=== PATIENT | male | born 1955 | race Caucasian/White ===

== ENCOUNTER → 2017-11-06 19:43 | Outpatient (CLI) | payer BC, SELFPAY | PROVIDERS: PCP Family Medicine; Visit Provider Specialist | DX: I11.9 Hypertensive heart disease without heart failure (principal); I25.10 Atherosclerotic heart disease of native coronary artery without angina pectoris; R06.83 Snoring; F44.9 Dissociative and conversion disorder, unspecified; E66.01 Morbid (severe) obesity due to excess calories | CPT/HCPCS: 95810 ==

== ENCOUNTER 2018-12-15 21:14 | Observation (INO) ==
[2018-12-15 21:37] LABS: Basophils % 0.3 % (0.1-2.0); Eosinophils # 0.3 K/mm3 (0.0-0.4); Hemoglobin 14.9 g/dL (14.1-18.0); Lymphocytes # 1.7 K/mm3 (0.7-4.5); Lymphocytes % 17.8 % (10-50); Mean Corpuscular HGB Conc 33.2 g/dL (31.8-35.4); Mean Corpuscular Volume 99.3 fl (80-94); Mean Platelet Volume 7.3 fl (7.4-10.4); Monocytes # 0.4 K/mm3 (0.1-1.0); Monocytes % 3.9 % (1.7-9.3); Neutrophils # 7.2 K/mm3 (1.8-7.8); Neutrophils % 74.9 % (37.0-80.0); Platelet Count 249 K/mm3 (142-424); Red Blood Count 4.53 M/mm3 (4.60-6.20); Red Cell Distribution Width 12.6 % (11.5-17.5); White Blood Count 9.6 K/mm3 (4.8-10.8)
[2018-12-15 21:49] LABS: Anion Gap 15.9 mEq/L (5-15); Blood Urea Nitrogen 20 mg/dL (7-18); Calcium 9.4 mg/dL (8.5-10.1); Carbon Dioxide 24 mmol/L (21.0-32.0); Chloride 100 mmol/L (98-107); Glucose 175 mg/dL (74-106); Sodium 136 mmol/L (136-145)
--- NOTE | 2018-12-15 22:47 | Emergency Department Note ---
ED Disposition Clinical Impression: Morbid obesity Chest pain Qualifiers: Chest pain type: precordial pain Qualified Code(s): R07.2 - Precordial pain Disposition: Admitted as Observation Condition on Discharge: Good Referrals: Milla Carlos MD [Primary Care Provider] - - Critical Care Critical Care Time: No Attestation: On 12/15/18, the high probability of a clinically significant, sudden or life threatening deterioration of the following system(s) required my full and direct attention, intervention and personal management. The time I documented below is in addition to time spent performing reported procedures but includes the following listed in this critical care notation. Medical Decision Making - Medical Records Medical records reviewed: Yes: I reviewed the patient's medical records. - Alli Inquiry Pt receiving controlled substance: No Vital Signs: 12/15/18 21:15 Temperature 98.4 F Temperature Source Oral Pulse Rate [Right Radial] 92 H Respiratory Rate 22 Blood Pressure [Right Arm] 112/83 Blood Pressure Mean [Right Arm] 92 02 Sat by Pulse Oximetry 92 L - Lab Data Lab results reviewed: Yes: I reviewed the patient's lab results. Lab Results 12/15/18 21:20: WBC 9.6, RBC 4.53 L, Hgb 14.9, Hct 45.0, MCV 99.3 H, MCH 32.9 H, MCHC 33.2, RDW 12.6, Plt Count 249, MPV 7.3 L, Neut % (Auto) 74.9, Lymph % (Auto) 17.8, [place] % (Auto) 3.9, Eos % (Auto) 3.0, Baso % (Auto) 0.3, Neut # (Auto) 7.2, Lymph # (Auto) 1.7, [place] # (Auto) 0.4, Eos # (Auto) 0.3, Baso # (Auto) 0.0 12/15/18 21:20: Sodium 136, Potassium 3.9, Chloride 100, Carbon Dioxide 24, Anion Gap 15.9 H, BUN 20 H, Creatinine 1.25, Estimated Creat Clear 62, Estimated GFR 59, Est GFR ( Amer) 71, Glucose 175 H, Calcium 9.4, Troponin I < 0.02 Result diagrams: 12/15/18 21:20 12/15/18 21:20 Orders (Tests/Meds): ED MEDICATIONS Discontinued Medications Generic Name Dose Route Start Last Admin Trade Name Kristin PRN Reason Stop Dose Admin Aspirin 324 mg 12/15/18 21:22 12/15/18 21:23 Aspirin 81mg Chewable Tablet PO 12/15/18 21:23 324 mg ONCE ONE Administration ORDERS Category Date Time Status XR chest 2V Stat Exams 12/15/18 21:22 Taken 12-lead EKG Request [ECG Request by /Kayla] Stat Y 12/15/18 21:24 Ordered - Radiology Data #1 Image(s): Chest Image Reviewed: Yes I reviewed the patient's radiology image Preliminary Findings: Abnormal (cm) - ECG Data Tracing #1 Normal Sinus Rhythm: Yes Ischemic changes: non-specific ST-T wave changes - Physician Consults Physician Consulted: marta Reason -: Admission Chest Pain HPI - General Chief Complaint: Chest Pain Stated Complaint: chest pain Time Seen by Provider: 12/15/18 21:20 Mode of Arrival: Wheelchair Source of Information: Patient, Spouse, Medical Record Limitations: No Limitations Description of Symptoms (Recalled from ER Triage Doc. by RN): pt states that at 2044 he was stung by a bee or wasp in the right forearm and he took 2 benadryl and sat down. pt states he then became diaphoretic, weak and dizzy and started having left chest pain - History of Present Illness HPI narrative: pt had felt dizzy earlier in day and dev chest pain which lasted about 20-30 minutes with no palpitation - pain resolved - feels chest pain not related to bee sting MD complaint: chest pain indicative of cardiac Onset (ago): hour(s) Duration: now resolved Activity at onset: during rest Pain location: left chest Severity: moderate Quality: sharp Associated symptoms: nausea, diaphoresis Risk Factors for CAD: Hypertension, Family Hx of CAD Treatments prior to or on arrival for Cardiac Chest Pain: none - JOSIAH Score for Non-Stemi Age of Patient: 60-69 years old Heart Rate: 90-109 bpm Systolic Blood Pressure: 100-119 mmHg Serum Creatinine: 1.20-1.59 mg/dl CHF [place] Class: I-No CHF Other Risk Factors: None Non-Stemi Risk Score: 126 - Related Data Prior Cardiac Testing/Procedures: Cardiac Angiogram Home Medications Medication Instructions Recorded Confirmed aspirin 81 mg tablet,delayed 81 mg PO DAILY tab 09/08/17 12/15/18 release isosorbide mononitrate ER 30 mg 30 mg PO DAILY 90 Days #180 01/19/18 12/15/18 tablet,extended release 24 hr Atorvastatin Calcium [Atorvastatin 10 mg PO DAILY 07/16/18 12/15/18 10mg Tab] Carvedilol [Carvedilol 6.25mg Tab] 6.25 mg PO BID 07/16/18 12/15/18 Cholecalciferol (Vitamin D3) 2,000 unit PO BID 07/16/18 12/15/18 [Vitamin D3] Multivit,Tx with Iron,Minerals 1 each PO DAILY 07/16/18 12/15/18 [Complete Multivitamin] potassium chloride 20 mEq oral 20 meq PO DAILY each 09/08/18 12/15/18 packet triamterene 37.5 1 tab PO BID tab 09/08/18 12/15/18 mg-hydrochlorothiazide 25 mg tablet Allergies Allergy/AdvReac Type Severity Reaction Status Date / Time No Known Allergies Allergy Verified 12/15/18 21:21 [facility] History - Hepatitis A Screen Drug use history?: No High risk sexual behaviors?: No History of sexually transmitted infection?: No Currently employed?: No Childcare worker?: No Do you have indoor plumbing?: Yes Do you have electricity?: Yes Attestation statement:: This patient has been screened for Hepatitis A risk factors. I have reviewed the patient's past medical history: Yes Medical History: Reports:: Coronary Artery Disease, Cerebrovascular Accident, Hyperlipidemia, Hypertension, Lung Disease, Transient Ischemic Attacks (TIA) Denies:: Cancer, Diabetes Mellitus Type 1, Diabetes Mellitus Type 2, Internal Pacemaker, MRSA, Seizures Comment: CHINTAN, angina, super morbid obesity Other Surgeries: Yes: Cardiac Catheterization, Hernia Repair. No: Pacemaker Amputation: No - Social History Smoking Status: Former smoker Tobacco Type: smokeless tobacco # Packs/Day (cigarettes): 0 Alcohol Intake: never Alcohol Intake Frequency:: other Substance Use Type: denies use Occupational Status: employed - Psychiatric History Expresses thoughts of harming self/others: None Suicide Plan Description: No Plan Family Hx:: Coronary Artery Disease, Stroke ROS Obtained: Yes All systems reviewed & no additional complaints - Constitutional Constitutional: Denies fever(s) - Eyes Eyes: Denies change in vision - ENT Ears, Nose, Mouth, and Throat: Denies sore throat - Cardiovascular Cardiovascular: Reports as per HPI, Reports chest pain, Reports dyspnea, Reports lightheadedness - Respiratory Respiratory: No cough - Gastrointestinal Gastrointestingal: Denies: abdominal pain - Genitourinary Male Genitourinary: Denies hematuria - Musculoskeletal Musculoskeletal: Denies joint pain - Integumentary/Breasts Skin/Breast: Denies rash - Neurologic Neurologic: Denies headache(s), Denies seizure-like activity Physical Exam - General General appearance: alert - Head Head exam: normocephalic - Eye Eye exam: Present: PERRL, EOMI - ENT ENT exam: Present: mucous membranes dry - Neck Neck exam: Present: trachea midline - Respiratory Respiratory exam: Present: other (dec bs bilat ). Absent: respiratory distress - Cardiovascular Cardiovascular exam: Present: regular rate, systolic murmur, +S4 - Abdominal Exam Abdominal exam: Present: soft - Extremities Exam Extremities exam: Present: pedal edema. Absent: calf tenderness - Neurological Exam Neurological exam: Present: alert, CN II-XII intact - Psychiatric Psychiatric exam: Present: normal affect - Skin Skin exam: Absent: rash
[2018-12-16 06:26] LABS: Basophils % 0.3 % (0.1-2.0); Eosinophils # 0.4 K/mm3 (0.0-0.4); Eosinophils % 4.4 % (0.1-12.0); Hematocrit 43.5 % (42.0-52.0); Hemoglobin 14.3 g/dL (14.1-18.0); Lymphocytes # 2.8 K/mm3 (0.7-4.5); Mean Corpuscular HGB Conc 32.9 g/dL (31.8-35.4); Mean Corpuscular Volume 102.2 fl (80-94); Mean Platelet Volume 7.6 fl (7.4-10.4); Monocytes # 0.5 K/mm3 (0.1-1.0); Monocytes % 5.6 % (1.7-9.3); Neutrophils # 4.8 K/mm3 (1.8-7.8); Neutrophils % 56.8 % (37.0-80.0); Platelet Count 211 K/mm3 (142-424); Red Blood Count 4.25 M/mm3 (4.60-6.20); Red Cell Distribution Width 12.6 % (11.5-17.5); White Blood Count 8.5 K/mm3 (4.8-10.8)
[2018-12-16 06:38] LABS: Anion Gap 12.4 mEq/L (5-15); Chol/HDL Ratio 3.2 (1-3.5)
--- NOTE | 2018-12-16 07:25 | Pharmacy Consult Notes ---
[facility] Pharmacy VTE Monitoring - Patient Demographics Admission date: 12/15/18 Report Date: 12/16/18 Time: 07:25 Allergies/Adverse Reactions: Patient Allergies No Known Allergies Allergy (Verified 12/15/18 21:21) Height: 1.75 m Weight: 141.181 kg Patient Problems: Current Active Problems (Updated 12/15/18 @ 22:53 by Rafita Butler MD) Chest pain (Acute) Morbid obesity (Acute) - VTE Risk Labs: VTE Related Lab Results Hgb 14.3 g/dL (14.1-18.0) 12/16/18 05:42 Hct 43.5 % (42.0-52.0) 12/16/18 05:42 Plt Count 211 K/mm3 (142-424) 12/16/18 05:42 BUN 19 mg/dL (7-18) H 12/16/18 05:42 Creatinine 1.10 mg/dL (0.70-1.30) 12/16/18 05:42 Estimated Creat Clear 71 mL/min (50-200) 12/16/18 05:42 Was VTE Risk Assessment Performed: Yes VTE Score: 3 VTE Risk Level: Low Risk Clinical Trial Participant: No - Prophylaxis VTE Prophylaxis Ordered?: Yes Types of VTE Prophylaxis: TEDS Knee High
--- NOTE | 2018-12-16 07:42 | Consult Report ---
History of Present Illness Consult date: 12/16/18 Requesting physician: Milla Carlos Consult reason: chest pain Chief complaint: chest pain Additional Medical History:: 1. Mild CAD by cardiac cath, 07/2014 A. Lexiscan myoview, 2017, no ischemia, EF 60% 2. HTN A. Echo, 2017, normal LVEF with mild right ventricular enlargement. No significant valve disease. 3. Hyperlipidemia 4. Morbid obesity 5. First degree A-V block by electrocardiogram 6. History of TIA 7. CHINTAN History of present illness: 63-year-old white male with history of mild coronary artery disease by cardiac catheterization in 2014 presented to the emergency department for left-sided chest pain without radiation but with associated shortness of breath and diaphoresis as well as nausea that onset at rest. Patient relates removing and replacing an air conditioner yesterday without significant chest pain or shortness of breath. Symptoms began about 8:30 last evening and due to their continuation he decided to come to the ER for further evaluation. He is given aspirin in the ER with improvement in symptoms. He did not take any nitroglycerin. Patient does relate being in route to home earlier in the evening when he was stung by bee on the right forearm. He denies any immediate shortness of breath or difficulty breathing associated with this. Patient was admitted for observation overnight. Troponins have returned normal x3. EKG is sinus rhythm, borderline first degree AV block with septal infarct pattern (not new) with no acute ST segment changes. Cardiology consulted for evaluation recommendations. Patient did have a Lexiscan Myoview in 2017 that showed no ischemia with normal ejection fraction. [facility] History Medical History: Reports:: Coronary Artery Disease, Cerebrovascular Accident, Hyperlipidemia, Hypertension, Lung Disease, Transient Ischemic Attacks (TIA) Denies:: Cancer, Diabetes Mellitus Type 1, Diabetes Mellitus Type 2, Internal Pacemaker, MRSA, Seizures *Have you ever received a pneumonia vaccine?: No *Have you received a flu vaccine this season?: No Other Surgeries: Yes: Cardiac Catheterization, Colonoscopy, Hernia Repair. No: Pacemaker Amputation: No - *Social History Educational Level: Attended High School Smoking Status: Current every day smoker Tobacco Type: smokeless tobacco # Packs/Day (cigarettes): 1 Alcohol Intake: never Alcohol Intake Frequency:: other Substance Use Type: denies use *Occupational Status:: employed *Travel in the last 8 weeks: None - Psychiatric History Expresses thoughts of harming self/others: None Suicide Plan Description: No Plan Family Hx:: Cancer, Coronary Artery Disease, Heart Attack, Hyperlipidemia, Hypertension, Stroke Meds Home Medications Medication Instructions Recorded Confirmed Type aspirin 81 mg tablet,delayed 81 mg PO HS tab 09/08/17 12/16/18 History release isosorbide mononitrate ER 30 mg 30 mg PO DAILY 90 Days #180 01/19/18 12/16/18 History tablet,extended release 24 hr Atorvastatin Calcium [Atorvastatin 10 mg PO HS 07/16/18 12/16/18 History 10mg Tab] Carvedilol [Carvedilol 6.25mg Tab] 6.25 mg PO BID 07/16/18 12/16/18 History Cholecalciferol (Vitamin D3) 2,000 unit PO BID 07/16/18 12/16/18 History [Vitamin D3] Multivit,Tx with Iron,Minerals 1 each PO DAILY 07/16/18 12/16/18 History [Complete Multivitamin] potassium chloride 20 mEq oral 20 meq PO DAILY each 09/08/18 12/16/18 History packet triamterene 37.5 1 tab PO DAILY tab 09/08/18 12/16/18 History mg-hydrochlorothiazide 25 mg tablet Clopidogrel Bisulfate [Plavix 75mg 75 mg PO DAILY 12/16/18 12/16/18 History Tab] Furosemide [Furosemide 40MG tAB] 40 mg PO DAILY 12/16/18 12/16/18 History Allergies Allergy/AdvReac Type Severity Reaction Status Date / Time No Known Allergies Allergy Verified 12/15/18 21:21 Review of Systems - *Cardiovascular Reports chest pain, Reports shortness of breath with activity, Denies rapid, pounding, or irregular heartbeat - *Respiratory Denies cough, Denies shortness of breath - *Gastrointestinal Denies abdominal pain, Denies nausea, Denies vomiting - *Genitourinary Denies blood in urine - *Musculoskeletal Denies joint pain, Denies back pain - *Neurologic Denies headache(s), Denies seizure-like activity Exam Vital signs and Labs for Last 24 Hours: Temp Pulse Resp BP Pulse Ox 98.8 F 66 18 108/71 L 95 12/16/18 07:40 12/16/18 07:40 12/16/18 07:40 12/16/18 07:40 12/16/18 07:40 Laboratory Results - last 24 hr 12/15/18 21:20: WBC 9.6, RBC 4.53 L, Hgb 14.9, Hct 45.0, MCV 99.3 H, MCH 32.9 H, MCHC 33.2, RDW 12.6, Plt Count 249, MPV 7.3 L, Neut % (Auto) 74.9, Lymph % (Auto) 17.8, [place] % (Auto) 3.9, Eos % (Auto) 3.0, Baso % (Auto) 0.3, Neut # ( Auto) 7.2, Lymph # (Auto) 1.7, [place] # (Auto) 0.4, Eos # (Auto) 0.3, Baso # (Auto) 0.0 12/15/18 21:20: Sodium 136, Potassium 3.9, Chloride 100, Carbon Dioxide 24, Anion Gap 15.9 H, BUN 20 H, Creatinine 1.25, Estimated Creat Clear 62, Estimated GFR 59, Est GFR ( Amer) 71, Glucose 175 H, Calcium 9.4, Troponin I < 0.02 12/16/18 02:12: Troponin I < 0.02 12/16/18 05:42: Troponin I < 0.02 12/16/18 05:42: WBC 8.5, RBC 4.25 L, Hgb 14.3, Hct 43.5, MCV 102.2 H, MCH 33.6 H , MCHC 32.9, RDW 12.6, Plt Count 211, MPV 7.6, Neut % (Auto) 56.8, Lymph % (Au to) 33.0, [place] % (Auto) 5.6, Eos % (Auto) 4.4, Baso % (Auto) 0.3, Neut # (Auto) 4.8, Lymph # (Auto) 2.8, [place] # (Auto) 0.5, Eos # (Auto) 0.4, Baso # (Auto) 0.0 12/16/18 05:42: Sodium 140, Potassium 3.4 L, Chloride 103, Carbon Dioxide 28, Anion Gap 12.4, BUN 19 H, Creatinine 1.10, Estimated Creat Clear 71, Estimated GFR 68, Est GFR ( Amer) 82, Glucose 111 H D, Calcium 9.0, Magnesium 2.1, Triglycerides 84, Cholesterol 150, LDL Cholesterol 86, VLDL Cholesterol 17, HDL Cholesterol 47, Cholesterol/HDL Ratio 3.2 I & O for Last 24 hours: Intake & Output 12/13/18 12/14/18 12/15/18 12/16/18 11:59 11:59 11:59 11:59 Weight 311 lb 4 oz - *Routine HEENT Exam Head: Present: normocephalic Eye: Present: EOMI, PERRL ENT: Present: mucous membranes moist - *Routine Neck Exam Present: supple. Absent: JVD, carotid bruit - *Routine Respiratory Exam Present: CTA bilaterally. Absent: accessory muscle use, rales, rhonchi, wheezes - *Routine Cardiovascular Exam Present: RRR. Absent: murmur, gallop, rubs - *Routine Abdominal Exam Present: soft. Absent: tenderness, distended, guarding - *Routine Extremities Exam Present: edema. Absent: calf tenderness - *Routine Neurological Exam Present: alert, oriented X3, moving all extremities Assessment and Plan (1) Chest pain Current visit: Yes Status: Acute Qualifiers: Chest pain type: precordial pain Qualified Code(s): R07.2 - Precordial pain Category: Medical Code(s): R07.9 - Chest pain, unspecified (2) Morbid obesity Current visit: Yes Status: Acute Category: Medical Code(s): E66.01 - Morbid (severe) obesity due to excess calories (3) First degree atrioventricular block Current visit: No Status: Acute Category: Medical Code(s): I44.0 - Atrioventricular block, first degree (4) Coronary arteriosclerosis Current visit: No Status: Chronic Category: Medical Code(s): I25.10 - Atherosclerotic heart disease of [place] coronary artery without angina pectoris (5) Hyperlipidemia Current visit: No Status: Chronic Qualifiers: Hyperlipidemia type: other hyperlipidemia Category: Medical Code(s): E78.5 - Hyperlipidemia, unspecified (6) Hypertensive heart disease without heart failure Current visit: No Status: Chronic Category: Medical Code(s): I11.9 - Hypertensive heart disease without heart failure (7) CHINTAN (obstructive sleep apnea) Current visit: No Status: Chronic Category: Medical Code(s): G47.33 - Obstructive sleep apnea (adult) (pediatric) - Assessment and plan all Dx Assessment and Plan for all problems:: 1. Chest pain with mild coronary artery disease by cardiac cath 2014, no acute EKG changes and normal troponins x3. Recommend proceeding with Lexiscan Myoview to evaluate for progression of coronary artery disease. 2. Further recommendations to follow pending above results.
--- NOTE | 2018-12-16 08:09 | History & Physical Report ---
*Admission Date: 12/15/18 *Chief complaint: chest pain *History of present illness: Mr. Myers is a 63-year-old white male with history of mild coronary artery disease by cardiac catheterization in 2014 who presented to the emergency department for left-sided chest pain without radiation but with associated s hortness of breath and diaphoresis as well as nausea with onset at rest. Patient relates removing and replacing an air conditioner yesterday without significant chest pain or shortness of breath. Symptoms began about 8:30 last evening and due to their continuation, he decided to come to the ER for further evaluation. He was given aspirin in the ER with improvement in symptoms. He did not take any nitroglycerin. Patient does relate being in route to home earlier in the evening when he was stung by a bee on the right forearm. He denies any immediate shortness of breath or difficulty breathing associated with this. Patient was admitted for observation overnight. Troponins have returned normal x3. EKG is sinus rhythm, borderline first degree AV block with septal infarct pattern (not new) with no acute ST segment changes. Cardiology consulted for evaluation recommendations. Patient did have a Lexiscan Myoview in 2017 that showed no ischemia with normal ejection fraction. The above as per Juan Diego Wilson with Cardiology. [facility] History I have reviewed the patient's past medical history: Yes Medical History: Reports:: Anxiety, Coronary Artery Disease, Cerebrovascular Accident, Hyperlipidemia, Hypertension, Lung Disease, Transient Ischemic Attacks (TIA) Denies:: Cancer, Diabetes Mellitus Type 1, Diabetes Mellitus Type 2, Internal Pacemaker, MRSA, Seizures *Have you ever received a pneumonia vaccine?: No *Have you received a flu vaccine this season?: No Other Medical History: Reports: Other (Sleep apnea) Other Surgeries: Yes: Cardiac Catheterization, Colonoscopy, Hernia Repair. No: Pacemaker Amputation: No - *Social History Educational Level: Attended High School Smoking Status: Current every day smoker Tobacco Type: smokeless tobacco # Packs/Day (cigarettes): 1 Alcohol Intake: never Alcohol Intake Frequency:: other Substance Use Type: denies use *Occupational Status:: employed *Travel in the last 8 weeks: None - Psychiatric History Expresses thoughts of harming self/others: None Suicide Plan Description: No Plan Family Hx:: Cancer, Coronary Artery Disease, Diabetes, Heart Attack, Hyperlipidemia, Hypertension, Stroke Review of Systems - Constitutional Denies fatigue, Denies fever(s), Denies weakness - Eyes Denies blurry vision, Denies double vision - ENT Denies nasal congestion, Denies sore throat - *Cardiovascular Reports chest pain, Reports shortness of breath, Denies rapid, pounding, or irregular heartbeat, Denies radiating jaw, neck or arm pain - *Respiratory Denies cough, Denies wheezing - *Gastrointestinal Reports nausea, Denies abdominal pain, Denies loose stools, Denies vomiting - *Genitourinary Denies difficulty urinating, Denies painful urination - *Musculoskeletal Denies joint pain, Denies muscle weakness - *Neurologic Reports dizziness, Denies headache(s), Denies seizure-like activity, Denies weakness Meds Home Medications Medication Instructions Recorded Confirmed Type aspirin 81 mg tablet,delayed 81 mg PO HS tab 09/08/17 12/16/18 History release isosorbide mononitrate ER 30 mg 30 mg PO DAILY 90 Days #180 01/19/18 12/16/18 History tablet,extended release 24 hr Atorvastatin Calcium [Atorvastatin 10 mg PO HS 07/16/18 12/16/18 History 10mg Tab] Carvedilol [Carvedilol 6.25mg Tab] 6.25 mg PO BID 07/16/18 12/16/18 History Cholecalciferol (Vitamin D3) 2,000 unit PO BID 07/16/18 12/16/18 History [Vitamin D3] Multivit,Tx with Iron,Minerals 1 each PO DAILY 07/16/18 12/16/18 History [Complete Multivitamin] potassium chloride 20 mEq oral 20 meq PO DAILY each 09/08/18 12/16/18 History packet triamterene 37.5 1 tab PO DAILY tab 09/08/18 12/16/18 History mg-hydrochlorothiazide 25 mg tablet Carvedilol [Carvedilol 6.25mg Tab] 6.25 mg PO PM 12/16/18 12/16/18 History Clopidogrel Bisulfate [Plavix 75mg 75 mg PO DAILY 12/16/18 12/16/18 History Tab] Fluticasone Propionate 1 spr NOSTRIL-B DAILY 12/16/18 12/16/18 History Furosemide [Furosemide 40MG tAB] 40 mg PO DAILY 12/16/18 12/16/18 History Allergies Allergy/AdvReac Type Severity Reaction Status Date / Time No Known Allergies Allergy Verified 12/15/18 21:21 Exam Vital signs and Labs for Last 24 Hours: Temp Pulse Resp BP Pulse Ox 98.8 F 66 18 108/71 L 95 12/16/18 07:40 12/16/18 07:40 12/16/18 07:40 12/16/18 07:40 12/16/18 07:40 Laboratory Results - last 24 hr 12/15/18 21:20: WBC 9.6, RBC 4.53 L, Hgb 14.9, Hct 45.0, MCV 99.3 H, MCH 32.9 H, MCHC 33.2, RDW 12.6, Plt Count 249, MPV 7.3 L, Neut % (Auto) 74.9, Lymph % (Auto) 17.8, [place] % (Auto) 3.9, Eos % (Auto) 3.0, Baso % (Auto) 0.3, Neut # (Auto) 7.2, Lymph # (Auto) 1.7, [place] # (Auto) 0.4, Eos # (Auto) 0.3, Baso # (Auto) 0.0 12/15/18 21:20: Sodium 136, Potassium 3.9, Chloride 100, Carbon Dioxide 24, Anion Gap 15.9 H, BUN 20 H, Creatinine 1.25, Estimated Creat Clear 62, Estimated GFR 59, Est GFR ( Amer) 71, Glucose 175 H, Calcium 9.4, Troponin I < 0.02 12/16/18 02:12: Troponin I < 0.02 12/16/18 05:42: Troponin I < 0.02 12/16/18 05:42: WBC 8.5, RBC 4.25 L, Hgb 14.3, Hct 43.5, MCV 102.2 H, MCH 33.6 H , MCHC 32.9, RDW 12.6, Plt Count 211, MPV 7.6, Neut % (Auto) 56.8, Lymph % (Auto) 33.0, [place] % (Auto) 5.6, Eos % (Auto) 4.4, Baso % (Auto) 0.3, Neut # (Auto) 4.8, Lymph # (Auto) 2.8, [place] # (Auto) 0.5, Eos # (Auto) 0.4, Baso # (Auto) 0.0 12/16/18 05:42: Sodium 140, Potassium 3.4 L, Chloride 103, Carbon Dioxide 28, Anion Gap 12.4, BUN 19 H, Creatinine 1.10, Estimated Creat Clear 71, Estimated GFR 68, Est GFR ( Amer) 82, Glucose 111 H D, Calcium 9.0, Magnesium 2.1, Triglycerides 84, Cholesterol 150, LDL Cholesterol 86, VLDL Cholesterol 17, HDL Cholesterol 47, Cholesterol/HDL Ratio 3.2 I & O for Last 24 hours: Intake & Output 12/13/18 12/14/18 12/15/18 12/16/18 11:59 11:59 11:59 11:59 Weight 311 lb 4 oz - Constitutional no acute distress - *Routine HEENT Exam Head: Present: normocephalic Eye: Present: EOMI, PERRL ENT: Present: mucous membranes dry - *Routine Neck Exam Present: supple. Absent: lymphadenopathy - *Routine Respiratory Exam Present: CTA bilaterally - *Routine Cardiovascular Exam Present: RRR - *Routine Abdominal Exam Present: soft, normoactive bowel sounds. Absent: tenderness - *Routine Extremities Exam Absent: cyanosis, clubbing, edema - *Routine Skin Exam Present: warm. Absent: rash - *Routine Neurological Exam Present: alert, oriented X3 H&P: Result - Impressions CXR - pending Assessment and Plan (1) Chest pain Current visit: Yes Status: Acute Qualifiers: Chest pain type: precordial pain Qualified Code(s): R07.2 - Precordial pain Category: Medical Code(s): R07.9 - Chest pain, unspecified (2) Morbid obesity Current visit: Yes Status: Acute Category: Medical Code(s): E66.01 - [place] d (severe) obesity due to excess calories (3) First degree atrioventricular block Current visit: No Status: Acute Category: Medical Code(s): I44.0 - Atrioventricular block, first degree (4) Coronary arteriosclerosis Current visit: No Status: Chronic Category: Medical Code(s): I25.10 - Atherosclerotic heart disease of [place] coronary artery without angina pectoris (5) Hyperlipidemia Current visit: No Status: Chronic Qualifiers: Hyperlipidemia type: other hyperlipidemia Category: Medical Code(s): E78.5 - Hyperlipidemia, unspecified (6) Hypertensive heart disease without heart failure Current visit: No Status: Chronic Category: Medical Code(s): I11.9 - Hypertensive heart disease without heart failure (7) CHINTAN (obstructive sleep apnea) Current visit: No Status: Chronic Category: Medical Code(s): G47.33 - Obstructive sleep apnea (adult) (pediatric) (8) Hypokalemia Current visit: Yes Status: Acute Category: Medical Code(s): E87.6 - Hypokalemia - Assessment and plan all Dx Assessment and Plan for all problems:: Patient has been seen by cardiology and they want to proceed with a Lexiscan Myoview today. We will also start on potassium for hypokalemia.
[2018-12-16 15:28] VITALS: BP 142/75
--- NOTE | 2018-12-16 20:27 | Cardiology Report ---
PROCEDURE: 2-D M-mode and color Doppler study INDICATIONS FOR THE TEST: Chest pain+ COPD Heart Murmur Tobacco Smoking Palpitations Fatigue Syncope Edema Hypertension+Diabetes Mellitus Rheumatic Fever SOB JANSEN Obesity Hyperlipidemia+ Family History HD Additional History CHINTAN, DIZZINESS, CAD,CVA PATIENT INFORMATION HEIGHT:69 WEIGHT:340 GENDER: Male B/P:112/83 2-D/M-MODE INTERPRETATION: 2-D MEASUREMENTS OBSERVED VALUES IN CMS Right Ventricular Dimension (RVDd) 3.1 Interventricular Septum (Thickness)(IVsd) 1.6 Left Ventricular Internal Dimensions(LVIDd) 4.6 Left Ventricular Posterior Wall (Thickness)(LVPWd) 1.1 Aortic Root 3.5 Aortic Cusp Separation 2.0 Left Atrial Dimensions (LAD) 3.8 2D 1. Left atrium is mildly enlarged, left ventricle is normal size, mild concentric left ventricular hypertrophy, visually estimated ejection fraction 55% with no regional wall motion abnormality. 2. The right atrium and right ventricle are mildly enlarged with normal contractility. 3. The aortic valve is thickened and calcified leaflet continue to display mobility. 4. The mitral and tricuspid valve leaflets are minimally thickened. 5. The pulmonic valve is poorly present. 6. No significant pericardial effusion noted. DOPPLER INTERROGATION: Doppler interrogation of the aortic, mitral and tricuspid valvular presence of mild mitral and tricuspid regurgitation, tricuspid regurgitation jet velocity is inadequate for the right ventricular systolic pressure, grade 1 diastolic dysfunction seen without tissue Doppler evidence of raised left atrial pressure. CONCLUSION: 1. Mildly enlarged left atrium, normal left ventricular size, mild concentric left ventricular hypertrophy, visually estimated ejection fraction 55% with no regional wall motion abnormality, grade 1 diastolic dysfunction seen without tissue Doppler evidence of raised left atrial pressure. 2. Mildly enlarged right ventricle with normal contractility. 3. Mild mitral and tricuspid regurgitation 4. No significant pericardial effusion noted.
--- NOTE | 2018-12-17 09:33 | Discharge Summary ---
General - General Admission date:: 12/15/18 Discharge date: 12/16/18 HPI HPI: Mr. Myers is a 63-year-old white male with history of mild coronary artery disease by cardiac catheterization in 2014 who presented to the emergency department for left-sided chest pain without radiation but with associated shortness of breath and diaphoresis as well as nausea with onset at rest. Patient relates removing and replacing an air conditioner yesterday without significant chest pain or shortness of breath. Symptoms began about 8:30 last evening and due to their continuation, he decided to come to the ER for further evaluation. He was given aspirin in the ER with improvement in symptoms. He did not take any nitroglycerin. Patient does relate being in route to home earlier in the evening when he was stung by a bee on the right forearm. He denies any immediate shortness of breath or difficulty breathing associated with this. Patient was admitted for observation overnight. Troponins have returned normal x3. EKG is sinus rhythm, borderline first degree AV block with septal infarct pattern (not new) with no acute ST segment changes. Cardiology consulted for evaluation recommendations. Patient did have a Lexiscan Myoview in 2017 that showed no ischemia with normal ejection fraction. The above as per Juan Diego Wilson with Cardiology. Hospital Course Hospital Course: The patient's chest pain resolved and did not return. Cardiology wanted him to have a Lexiscan Myoview. This was performed and showed no ischemia with a normal left ventricular ejection fraction. He had an echo showing an EF of 55% with some grade 1 diastolic dysfunction. Cardiology felt he was stable to be discharged home. Objective Vital signs: Temp Pulse Resp BP Pulse Ox 98.5 F 60 18 142/75 H 98 12/16/18 15:27 12/16/18 16:00 12/16/18 15:27 12/16/18 15:27 12/16/18 15:27 Narrative: - Constitutional no acute distress - *Routine HEENT Exam Head: Present: normocephalic Eye: Present: EOMI, PERRL ENT: Present: mucous membranes dry - *Routine Neck Exam Present: supple. Absent: lymphadenopathy - *Routine Respiratory Exam Present: CTA bilaterally - *Routine Cardiovascular Exam Present: RRR - *Routine Abdominal Exam Present: soft, normoactive bowel sounds. Absent: tenderness - *Routine Extremities Exam Absent: cyanosis, clubbing, edema - *Routine Skin Exam Present: warm. Absent: rash - *Routine Neurological Exam Present: alert, oriented X3 DS: Diagnosis - Discharge Diagnosis (1) Chest pain Status: Acute (2) Morbid obesity Status: Acute (3) First degree atrioventricular block Status: Acute (4) Coronary arteriosclerosis Status: Chronic (5) Hyperlipidemia Status: Chronic (6) Hypertensive heart disease without heart failure Status: Chronic (7) CHINTAN (obstructive sleep apnea) Status: Chronic (8) Hypokalemia Status: Acute Discharge Plan - Patient Discharge Instructions ACTIVITY: Continue current activity DIET: low fat, low cholesterol Patient Instructions: DI for Chest Pain - Follow up Plan Follow up with: Milla Carlos MD [Primary Care Provider] - 12/19/18 11:30 am Disposition: Home, Self-Long-Term Medications: Home Medications Medication Instructions Recorded Confirmed Type aspirin 81 mg tablet,delayed 81 mg PO HS tab 09/08/17 12/16/18 History release isosorbide mononitrate ER 30 mg 30 mg PO DAILY 90 Days #180 01/19/18 12/16/18 History tablet,extended release 24 hr Atorvastatin Calcium [Atorvastatin 10 mg PO HS 07/16/18 12/16/18 History 10mg Tab] Carvedilol [Carvedilol 6.25mg Tab] 12.5 mg PO DAILY 07/16/18 12/16/18 History Cholecalciferol (Vitamin D3) 2,000 unit PO BID 07/16/18 12/16/18 History [Vitamin D3] Multivit,Tx with Iron,Minerals 1 each PO DAILY 07/16/18 12/16/18 History [Complete Multivitamin] potassium chloride 20 mEq oral 20 meq PO DAILY each 09/08/18 12/16/18 History packet triamterene 37.5 1 tab PO DAILY tab 09/08/18 12/16/18 History mg-hydrochlorothiazide 25 mg tablet Carvedilol [Carvedilol 6.25mg Tab] 6.25 mg PO PM 12/16/18 12/16/18 History Clopidogrel Bisulfate [Plavix 75mg 75 mg PO DAILY 12/16/18 12/16/18 History Tab] Fluticasone Propionate 1 spr NOSTRIL-B DAILY 12/16/18 12/16/18 History Furosemide [Furosemide 40MG tAB] 40 mg PO DAILY 12/16/18 12/16/18 History Prescriptions/Medication Reconciliation: Continued isosorbide mononitrate ER 30 mg tablet,extended release 24 hr 30 mg PO DAILY 90 Days #180 triamterene 37.5 mg-hydrochlorothiazide 25 mg tablet 1 tab PO DAILY tab aspirin 81 mg tablet,delayed release 81 mg PO HS tab potassium chloride 20 mEq oral packet 20 meq PO DAILY each Carvedilol [Carvedilol 6.25mg Tab] 12.5 mg PO DAILY Atorvastatin Calcium [Atorvastatin 10mg Tab] 10 mg PO HS Cholecalciferol (Vitamin D3) [Vitamin D3] 2,000 unit PO BID Clopidogrel Bisulfate [Plavix 75mg Tab] 75 mg PO DAILY Furosemide [Furosemide 40MG tAB] 40 mg PO DAILY Multivit,Tx with Iron,Minerals [Complete Multivitamin] 1 each PO DAILY Fluticasone Propionate 1 spr NOSTRIL-B DAILY Carvedilol [Carvedilol 6.25mg Tab] 6.25 mg PO PM
== END 2018-12-16 17:30 | disposition home or self-care (01) ==
LOC: 2ND 21:14 → ER 21:14 → 2ND 23:10
PROVIDERS: ADMIT Family Medicine; ATTEND Family Medicine
DX: E78.5 Hyperlipidemia, unspecified; Z79.82 Long term (current) use of aspirin; Y92.810 Car as the place of occurrence of the external cause; E87.6 Hypokalemia; G47.33 Obstructive sleep apnea (adult) (pediatric); I44.0 Atrioventricular block, first degree; Z79.899 Other long term (current) drug therapy; I25.10 Atherosclerotic heart disease of native coronary artery without angina pectoris; T63.441A Toxic effect of venom of bees, accidental (unintentional), initial encounter; E66.01 Morbid (severe) obesity due to excess calories; I11.9 Hypertensive heart disease without heart failure; Z86.73 Personal history of transient ischemic attack (TIA), and cerebral infarction without residual deficits
CPT/HCPCS: 36415; 71020; 71046; 78452; 80048; 80061; 83735; 84484; 85025; 93005; 93017; 93306; 99284; A9502; G0378; J2785

== ENCOUNTER → 2019-06-02 16:12 | Outpatient (CLI) | payer BC, SELFPAY ==
[2019-06-02 17:45] LABS: Alanine Aminotransferase 70 U/L (12-78); Albumin Level 3.6 gm/dL (3.4-5.0); Alkaline Phosphatase 68 U/L (46-116); Anion Gap 11.9 mEq/L (5-15); Aspartate Amino Transferase 53 U/L (15-37); Bilirubin,Total 0.4 mg/dL (0.2-1.0); Blood Urea Nitrogen 17 mg/dL (7-18); Calcium 9.2 mg/dL (8.5-10.1); Carbon Dioxide 30 mmol/L (21.0-32.0); Chloride 107 mmol/L (98-107); Creatinine,Serum 1.01 mg/dL (0.70-1.30); Estimated Glomerular Filt Rate 75 ml/min (>60); GFR (African American) 91 ML/MIN (>60); Globulin 3.7 gm/dl (1.3-3.2); Glucose 87 mg/dL (74-106); Potassium 4.9 mmoL/L (3.5-5.1); Sodium 144 mmol/L (136-145); Thyroid Stimulating Hormone 2.99 uIU/ml (0.358-3.740); Total Protein,Serum 7.3 gm/dL (6.4-8.2)
== END ==
PROVIDERS: Visit Provider Family Medicine
DX: I10 Essential (primary) hypertension (principal); M54.2 Cervicalgia
CPT/HCPCS: 36415; 80053; 84443

== ENCOUNTER → 2019-06-10 07:37 | Outpatient (CLI) | payer BC, SELFPAY ==
--- NOTE | 2019-06-10 07:41 | CT_ITS ---
PROCEDURE: CT SOFT TISSUE NECK WO CON CLINICAL HISTORY: NECK PAIN Right-sided neck pain with intermittent swollen area below the ear with pain and tenderness COMPARISON: No exams were available for comparison TECHNIQUE: Oral Contrast: None IV Contrast: None Axial images obtained with sagittal and coronal reformats. All CT scans at the facility use one or more dose reduction, viz: automated exposure control, ma/kV adjustment per patient size (including targeted exams where dose is matched to indication, i.e. head), or iterative reconstruction technique. FINDINGS: No discrete mass or abnormal fluid collection is evident. There are few scattered small nodes in the neck. There asymmetry in the jugular veins right more prominent than left. This can be a normal variant. No obvious adenopathy. No acute bony anomalies. There is mild degenerative disc disease at C3-C4 and C5-C6. Nasopharynx, glottic region, and subglottic region are unremarkable. There are some calcified tonsillar crypts noted. IMPRESSION: Nonspecific nonacute findings. No mass or other significant anomaly evident. Dictated by: Michele Kenney MD 06/12/2019 14:05 Electronically signed by Michele Kenney MD in [facility] 06/12/2019 14:05
== END ==
PROVIDERS: PCP Family Medicine; Visit Provider Family Medicine
DX: M54.2 Cervicalgia (principal)
CPT/HCPCS: 70490

== ENCOUNTER → 2020-05-02 09:31 | Outpatient (CLI) | payer BC, SELFPAY ==
--- NOTE | 2020-05-02 | CA_ITS ---
APPROVED REPORT Left Lower Extremity Venous Study for DVT. Tobacco Prizer: CT Indications Lower Extremity Pain: Lower Extremity Edema: Left Medications Aspirin Vein Imaging CFV (L): Not Visualized SFJ (L): Not Visualized FEM (L): compressive, spontaneous, phasic, augmentation POP (L): compressive, spontaneous, phasic, augmentation DFV (L): compressive, spontaneous, phasic, augmentation PTV (L): compressive, spontaneous, phasic, augmentation GSV (L): compressive, spontaneous, phasic, augmentation SSV (L): Not Visualized Peroneals (L):compressive, spontaneous, phasic, augmentation GAS (L): Not Visualized Findings LLE negative for DVT/SVT. Vessels fully compressible. TDE. Conclusion LLE negative for DVT/SVT. Vessels fully compressible. TDE. Electronically signed by : Michele Kenney MD 05/02/2020 17:20:38
--- NOTE | 2020-05-02 12:09 | XR_ITS ---
PROCEDURE: XR KNEE LT 3V CLINICAL INDICATION: ARTHROPATHY OF KNEE Pain COMPARISON: CR KNEE3R KNEE-3 VIEWS-RT from 10/19/2012 CR KNEE3R KNEE-3 VIEWS-RT from 07/25/2016 FINDINGS: There are mild tricompartmental osteoarthritic changes most progressed at the medial compartment. No fracture or dislocation. No lytic or blastic change. Other findings:None. IMPRESSION: Mild osteoarthritis of the left knee Dictated by: Michele Kenney MD 05/02/2020 12:31 Michele Kenney MD in [facility] 05/02/2020 12:31
== END ==
LOC: RAD 09:34 → RT 10:15
PROVIDERS: PCP Family Medicine; Visit Provider Family Medicine
DX: M79.605 Pain in left leg (principal); M17.10 Unilateral primary osteoarthritis, unspecified knee
CPT/HCPCS: 73562; 93971

== ENCOUNTER → 2020-05-12 13:55 | Outpatient (CLI) | payer BC, SELFPAY ==
[2020-05-12 15:46] LABS: Creatinine,Urine Random 38 mg/dL (Not Estab.)
[2020-05-12 15:55] LABS: Microalbumin < 6.000 mg/L (0-16.7)
[2020-05-12 16:03] LABS: Hemoglobin A1C 5.9 % (4.0-6.0)
[2020-05-12 16:25] LABS: Alanine Aminotransferase 78 U/L (12-78); Albumin Level 4.3 g/dl (3.5-5.0); Albumin/Globulin Ratio 1.2 (1.1-1.8); Alkaline Phosphatase 77 U/L (38-126); Anion Gap 13.3 mEq/L (5-15); Aspartate Amino Transferase 79 U/L (17-59); Bilirubin,Total 0.5 mg/dl (0.2-1.3); Blood Urea Nitrogen 19 mg/dl (9-20); Calcium 10.3 mg/dl (8.4-10.2); Carbon Dioxide 32 mmol/L (22.0-30.0); Chloride 99 mmol/L (98-107); Chol/HDL Ratio 3.7 (1-3.5); Cholesterol 191 mg/dl (140-200); Estimated Glomerular Filt Rate 75 ml/min (>60); GFR (African American) 91 ML/MIN (>60); Globulin 3.5 g/dL (1.3-3.2); Glucose 126 mg/dl (74-100); HDL Cholesterol 52 mg/dl (40-60); Potassium 4.3 mmoL/L (3.5-5.1); Sodium 140 mmol/L (136-145); Total Protein,Serum 7.8 g/dl (6.3-8.2); Triglycerides 238 mg/dl (30-150); VLDL Cholesterol 48 mg/dL (0-40)
[2020-05-12 16:36] LABS: Direct LDL Cholesterol 99.23 mg/dL (100-129)
[2020-05-12 16:56] LABS: Thyroid Stimulating Hormone 2.59 uIU/mL (0.465-4.68)
== END ==
PROVIDERS: Visit Provider Family Medicine
DX: I10 Essential (primary) hypertension (principal); R73.9 Hyperglycemia, unspecified; E78.2 Mixed hyperlipidemia; R79.89 Other specified abnormal findings of blood chemistry
CPT/HCPCS: 36415; 80053; 80061; 82043; 82570; 83036; 84443

== ENCOUNTER 2020-05-17 16:00 | Outpatient (RCR) | payer BC, SELFPAY ==
--- NOTE | 2020-05-08 15:42 | [facility].PTOPWND ---
Rehab Outpt Wound Evaluation Rehab OP Wound Evaluation Start: 05/08/20 15:34 Freq: Status: Active Protocol: Document 05/08/20 15:37 TERRA (Rec: 05/08/20 15:42 PHORNE [id number]) Electronically Signed By Jalil Rush, PT 05/08/20 15:37 Subjective/History History History Pt is 65 yowm who presents with c/o L LE edema and pain x ~ 3-4 wks with insidious onset of symptoms. He had US performed which showed no DVT. He reports tenderness to palpation along the superior lateral side of the calf. He has PMH of HTN, HL, TIA, CVA, Anxiety, CAD, MO, hernia repair. Subjective Subjective Pt reports no pain at rest currently. 2/4 TTP L lateral superior calf. Lymphedema Eval Classification of Lymphedema Secondary Lymphedema Yes Stemmer's sign Stemmer's Sign no Stage of Lymphedema Lymphedema stages Stage I (Pitting edema, reduces w/ elevation, no fibrosis) Skin Changes Dry Skin Yes Taut, Shiny Skin Yes Redness Yes Discoloration of Skin Yes Affected Extremities Areas Affected by Lymphedema/Edema Right Lower Extremity,Left Lower Extremity Manual Lymphatic Drainage Treatment Area MLD Treatment Area Right Lower Extremity,Left Lower Extremity Wound Problems/Impairments Impairments Problems/Impairmments Palpation Tenderness,Impaired Endurance,Impaired Gait Pattern,Impaired Walking, Impaired Standing,Impaired Recreational Activities, Increased Edema,Lymphedema Present,Subjective C/O Pain, Impaired Self Care/Self Management Prognosis Rehab Potential Good Clinical Impression Consistent with Diagnosis Yes Short Term Goals Number of Weeks 4 Decreased Palpation Tenderness Yes: 1/4 L lower leg Increase Ability to Stand Yes Decrease Edema Yes Patient to Understand Lymphedema Yes Treatment and Exercises Assisted Goals Number of Weeks 8 Decreased Palpation Tenderness Yes: 0/4 L lower leg Increase Ability to Walk Yes Decrease [place]
== END 2020-05-17 16:59 | disposition home or self-care (01) ==
LOC: PT 16:00
PROVIDERS: PCP Family Medicine; Visit Provider Family Medicine
DX: L03.116 Cellulitis of left lower limb (principal)
CPT/HCPCS: 97140; 97162

== ENCOUNTER → 2020-06-06 08:06 | Outpatient (CLI) | payer BC, SELFPAY ==
--- NOTE | 2020-06-06 08:12 | XR_ITS ---
PROCEDURE: XR KNEE LT 4V CLINICAL INDICATION: left knee pain; weightbearing COMPARISON: CR KNEE3R KNEE-3 VIEWS-RT from 10/19/2012 CR KNEE3R KNEE-3 VIEWS-RT from 07/25/2016 CR XR KNEE LT 3V from 05/02/2020 FINDINGS: Moderate osteoarthritic changes are present at the medial compartment with mild osteoarthritis of the lateral compartment and patellofemoral joint. Other findings:None. IMPRESSION: Osteoarthritis Dictated by: Michele Kenney MD 06/06/2020 15:45 Michele Kenney MD in [facility] 06/06/2020 15:45
== END ==
PROVIDERS: PCP Family Medicine; Visit Provider Orthopaedic Surgery
DX: M25.562 Pain in left knee (principal)
CPT/HCPCS: 73564

== ENCOUNTER → 2020-06-13 11:01 | Outpatient (CLI) | payer BC, SELFPAY ==
--- NOTE | 2020-06-13 11:18 | XR_ITS ---
PROCEDURE: XR CHEST 2V CLINICAL HISTORY: BRONCHITIS COMPARISON: CR CXR CHEST(2 VIEWS-NOT PORTABLE) from 09/19/2016 CR CXR1 CHEST-PORTABLE from 10/15/2016 CR Chest from 12/15/2018 FINDINGS: The cardiomediastinal silhouette and pulmonary vascularity are within normal limits. Patchy infiltrate is present in the right lower lobe, left midlung and left lower lobe. This could be seen with Covid19 pneumonia. No effusions. No acute bony abnormalities. IMPRESSION: Bilateral pneumonia Dictated by: Michele Kenney MD 06/13/2020 16:11 Michele Kenney MD in [facility] 06/13/2020 16:11
== END ==
PROVIDERS: PCP Family Medicine; Visit Provider Family Medicine
DX: J40 Bronchitis, not specified as acute or chronic (principal)
CPT/HCPCS: 71046

== ENCOUNTER → 2020-06-20 08:06 | Outpatient (CLI) | payer BC, SELFPAY ==
--- NOTE | 2020-06-20 08:14 | XR_ITS ---
PROCEDURE: XR CHEST PORTABLE CLINICAL HISTORY: COVID COMPARISON: CR CXR1 CHEST-PORTABLE from 10/15/2016 CR Chest from 12/15/2018 CR XR CHEST 2V from 06/13/2020 FINDINGS: The cardiomediastinal silhouette and pulmonary vascularity are within normal limits. There has been some slight interval improvement from most recent study 06/13/2020 with partial clearing of the ill-defined infiltrate left perihilar region and at both lung bases. Minimal bilateral basilar infiltrates still remain. There is no pleural fluid. IMPRESSION: Slowly improving left perihilar and bilateral basilar ill-defined pneumonic infiltrates. Dictated by: Dr. Edilson Gallardo MD 06/20/2020 10:47 Dr. Edilson Gallardo MD in [facility] 06/20/2020 10:47
[2020-06-20 08:54] LABS: Basophils % 0.6 % (0.1-2.0); Eosinophils # 0.3 K/mm3 (0.0-0.4); Eosinophils % 4.6 % (0.1-12.0); Hemoglobin 14.5 g/dL (14.1-18.0); Lymphocytes # 2.1 K/mm3 (0.7-4.5); Lymphocytes % 33.1 % (10-50); Mean Corpuscular HGB Conc 33.6 g/dL (31.8-35.4); Mean Corpuscular Hemoglobin 33.7 pg (27.0-31.2); Mean Corpuscular Volume 100.1 fl (80-94); Mean Platelet Volume 7.3 fl (7.4-10.4); Monocytes # 0.4 K/mm3 (0.1-1.0); Monocytes % 6.2 % (1.7-9.3); Neutrophils # 3.5 K/mm3 (1.8-7.8); Neutrophils % 55.6 % (37.0-80.0); Platelet Count 310 K/mm3 (142-424); Red Cell Distribution Width 13.5 % (11.5-17.5); White Blood Count 6.3 K/mm3 (4.8-10.8)
== END ==
PROVIDERS: PCP Family Medicine; Visit Provider Family Medicine
DX: Z03.818 Encounter for observation for suspected exposure to other biological agents ruled out (principal)
CPT/HCPCS: 36415; 71045; 85025

== ENCOUNTER 2021-04-13 14:48 | Emergency (ER) | payer BC, SELFPAY ==
[2021-04-13 14:49] VITALS: BP 122/58; PULSE 81; RESP 18; TEMP 36.6; O2SAT 95; BMI 41.4
[2021-04-13 14:52] VITALS: BMI 98.0
--- NOTE | 2021-04-13 14:52 | CT_ITS ---
PROCEDURE: CT HEAD/BRAIN WO CON CLINICAL INDICATION: STROKE ALERT COMPARISON: No exams were available for comparison TECHNIQUE: Axial images obtained. All CT scans at the facility use one or more dose reduction, viz: automated exposure control, ma/kV adjustment per patient size (including targeted exams where dose is matched to indication, i.e. head), or iterative reconstruction technique. FINDINGS: No midline shift, mass effect, intracranial hemorrhage, hydrocephalus, or extra-axial fluid collection is evident. There is generalized atrophy with hypoattenuation of the periventricular white matter consistent with microangiopathic changes. Small area of decreased density is present in the left basal ganglia inferiorly only well seen on the thin section images and may represent an old small lacunar infarction. The calvarium has an unremarkable appearance. No mastoid effusion. No sinus air-fluid level. IMPRESSION: No acute intracranial finding Dictated by: Michele Kenney MD 04/13/2021 15:05 Michele Kenney MD in [facility] 04/13/2021 15:05
[2021-04-13 15:11] VITALS: BMI 41.3
--- NOTE | 2021-04-13 15:12 | ECG_ITS ---
APPROVED REPORT Exam: Resting ECG HR:77 bpm ECG Measurements Heart Rate 77 AXES LA 236 P 64 QRSd 104 QRS 51 QT 392 T 30 QTc 443 Conclusion Sinus rhythm with 1st degree AV block Otherwise normal ECG Electronically signed by : Ernesto Grande MD 04/14/2021 09:11:55
--- NOTE | 2021-04-13 15:12 | XR_ITS ---
PROCEDURE: XR CHEST PORTABLE CLINICAL HISTORY: chest pain COMPARISON: CR Chest from 12/15/2018 CR XR CHEST 2V from 06/13/2020 CR XR CHEST PORTABLE from 06/20/2020 FINDINGS: Cardiomegaly. There is mild prominence of the pulmonary vessels which in part could be related to the AP portable technique poor inspiration and attenuation from overlying soft tissues. Cannot exclude mild CHF. No lobar consolidation or collapse. Probable summation artifact left midlung laterally. Upright PA and lateral chest may provide further evaluation. IMPRESSION: Possible mild CHF Dictated by: Michele Kenney MD 04/13/2021 16:46 Michele Kenney MD in [facility] 04/13/2021 16:46
--- NOTE | 2021-04-13 15:29 | CT_ITS ---
PROCEDURE INFORMATION: Exam: CT Angiography Neck With Contrast Exam date and time: 04/13/2021 3:29 PM Age: 66 years old Clinical indication: Patient HX: Extremity weakness; Additional info: Stroke alert TECHNIQUE: Imaging protocol: Computed tomography angiography of the neck with contrast. 3D rendering (Not supervised by radiologist): MIP and/or 3D reconstructed images were created by the technologist. Radiation optimization: All CT scans at this facility use at least one of these dose optimization techniques: automated exposure control; mA and/or kV adjustment per patient size (includes targeted exams where dose is matched to clinical indication); or iterative reconstruction. Contrast material: ISOVUE 370; Contrast volume: 100 ml; Contrast route: INTRAVENOUS (IV); COMPARISON: CT SOFT TISSUE NECK WO CON 06/10/2019 7:46 AM FINDINGS: Right common carotid artery: Artifact limits evaluation of the proximal right common carotid artery. No significant stenosis or occlusion of the remaining right common carotid artery. Right internal carotid artery: Atherosclerosis and less than 50% stenosis of the proximal right internal carotid artery. Increased tortuosity of the right internal carotid artery. Right external carotid artery: No occlusion or significant stenosis. Left common carotid artery: No significant stenosis. No dissection or occlusion. Left internal carotid artery: Atherosclerosis of the proximal left internal carotid artery, without stenosis using NASCET criteria. Increased tortuosity of the vessel. Left external carotid artery: No occlusion or significant stenosis. Right vertebral artery: A dominant right vertebral artery is visualized. Severe stenosis at the origin of the right vertebral artery, with atherosclerosis. Left vertebral artery: There is significantly decreased enhancement involving the origin of the left vertebral artery, concerning for decreased flow. Artifact can contribute to this finding. Oropharynx: Calcifications are identified within the palatine tonsils bilaterally. Hypopharynx: There is asymmetric decreased aeration of the left pyriform sinus. Lymph nodes: Nonspecific cervical and mediastinal lymph nodes are visualized. Soft tissues: No significant soft tissue swelling. Bones/joints: Degenerative changes are visualized involving the cervical and upper thoracic spine. Lungs: Mild dependent atelectatic changes identified within the lungs bilaterally. IMPRESSION: 1. A dominant right vertebral artery is visualized. Severe stenosis at the origin of the right vertebral artery, with atherosclerosis. 2. There is significantly decreased enhancement involving the origin of the left vertebral artery, concerning for decreased flow. Artifact can contribute to this finding. 3. Atherosclerosis and less than 50% stenosis of the proximal right internal carotid artery. 4. Additional findings described above. REFERENCES: NASCET CRITERIA. The degree of internal carotid artery stenosis is based on NASCET criteria. Normal is no stenosis. Mild is less than 50% stenosis. Moderate is 50-69% stenosis. Severe is 70% to 99% stenosis. Total occlusion is no detectable patent lumen.
--- NOTE | 2021-04-13 15:29 | CT_ITS ---
PROCEDURE INFORMATION: Exam: CT Angiography Head With Contrast, Arteriography Exam date and time: 04/13/2021 3:29 PM Age: 66 years old Clinical indication: Patient HX: Extremity weakness; Additional info: Stroke alert TECHNIQUE: Imaging protocol: Computed tomography angiography of the head with contrast. Exam focused on the arteries. 3D rendering (Not supervised by radiologist): MIP and/or 3D reconstructed images were created by the technologist. Radiation optimization: All CT scans at this facility use at least one of these dose optimization techniques: automated exposure control; mA and/or kV adjustment per patient size (includes targeted exams where dose is matched to clinical indication); or iterative reconstruction. Contrast material: ISOVUE 370; Contrast volume: 100 ml; Contrast route: INTRAVENOUS (IV); COMPARISON: CT HEAD/BRAIN WO CON 04/13/2021 2:46 PM FINDINGS: ANTERIOR CIRCULATION: Right internal carotid artery: Atherosclerosis of the right internal carotid artery, with mild stenosis. No aneurysm. Right middle cerebral artery: No occlusion or significant stenosis. No aneurysm. Right anterior cerebral artery: No occlusion or significant stenosis. No aneurysm. Left internal carotid artery: Atherosclerosis of the left internal carotid artery, with mild stenosis. No aneurysm. Left middle cerebral artery: No occlusion or significant stenosis. No aneurysm. Left anterior cerebral artery: No occlusion or significant stenosis. No aneurysm. POSTERIOR CIRCULATION: Right vertebral artery: A dominant right vertebral artery is identified. No significant stenosis or occlusion of the right vertebral artery. Left vertebral artery: Mild hypoplasia of the left vertebral artery, without significant stenosis or occlusion. Basilar artery: No occlusion or significant stenosis. No aneurysm. Right posterior cerebral artery: No occlusion or significant stenosis. No aneurysm. Left posterior cerebral artery: No occlusion or significant stenosis. No aneurysm. 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 Brain: A small nonacute infarct is identified involving the inferior left cerebellar lobe. Cerebral ventricles: No ventriculomegaly. Bones/joints: Hyperostosis frontalis interna. Soft tissues: Unremarkable. IMPRESSION: 1. No large vessel arterial occlusion on this CTA head. 2. A dominant right vertebral artery is identified. 3. Atherosclerosis of the internal carotid arteries, with mild stenoses bilaterally. 4. 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 5. Additional findings described above.
[2021-04-13 15:30] VITALS: BP 134/72; PULSE 65; RESP 21; O2SAT 95
[2021-04-13 15:44] LABS: Basophils # 0.1 K/mm3 (0-0.2); Eosinophils # 0.6 K/mm3 (0.0-0.4); Eosinophils % 8.5 % (0.1-12.0); Hematocrit 43.2 % (42.0-52.0); Hemoglobin 14.3 g/dL (14.1-18.0); Lymphocytes # 1.7 K/mm3 (0.7-4.5); Lymphocytes % 26.3 % (10-50); Mean Corpuscular Hemoglobin 34.3 pg (27.0-31.2); Mean Corpuscular Volume 104.1 fl (80-94); Mean Platelet Volume 7.7 fl (7.4-10.4); Monocytes # 0.5 K/mm3 (0.1-1.0); Monocytes % 7.1 % (1.7-9.3); Neutrophils # 3.7 K/mm3 (1.8-7.8); Neutrophils % 57.1 % (37.0-80.0); Platelet Count 191 K/mm3 (142-424); Red Blood Count 4.15 M/mm3 (4.60-6.20); Red Cell Distribution Width 12.8 % (11.5-17.5); White Blood Count 6.5 K/mm3 (4.8-10.8)
[2021-04-13 15:45] LABS: Chloride 104 mmol/L (98-107); Potassium 3.9 mmoL/L (3.5-5.1); Sodium 138 mmol/L (136-145)
[2021-04-13 15:47] LABS: Blood Urea Nitrogen 14 mg/dl (9-20)
[2021-04-13 15:48] LABS: Anion Gap 10.9 mEq/L (5-15); Calcium 9.3 mg/dl (8.4-10.2); Carbon Dioxide 27 mmol/L (22.0-30.0); Creatinine Clearance Estimated 75 mL/min (50-200); Estimated Glomerular Filt Rate 114 ml/min (>60); GFR (African American) 137 ML/MIN (>60); Glucose 140 mg/dl (74-100)
[2021-04-13 15:50] LABS: INR 0.99 (0.9-1.1); Prothrombin Time 11.2 seconds (10.1-12.5)
--- NOTE | 2021-04-13 15:57 | PC.NURSE ---
notified rad of CTA orders
[2021-04-13 16:00] VITALS: BP 158/88; PULSE 72; RESP 20; O2SAT 95
[2021-04-13 16:12] LABS: Troponin I < 0.01 ng/ml (0.00-0.034)
[2021-04-13 16:50] VITALS: BP 179/97; PULSE 76; RESP 16; O2SAT 95
[2021-04-13 17:00] VITALS: BP 175/92; PULSE 65; RESP 17; O2SAT 96
--- NOTE | 2021-04-13 17:25 | PC.NURSE ---
pt hollaring out wants to go to bathroom and go home
--- NOTE | 2021-04-13 17:50 | HMH.EDGENADL ---
ED Disposition Clinical Impression: Chest pain Qualifiers: Chest pain type: other chest pain Qualified Code(s): R07.89 - Other chest pain Disposition: Home, Self-Care Condition on Discharge: Fair Additional Instructions: Your CTA imaging today showed abnormalities including an old stroke and stenosis at your vertebral vessels. Continue to monitor at home for symptoms of stroke such as weakness, numbness, difficulty speaking, difficulty swallowing. If any of the symptoms occur, please return immediately to the nearest emergency department for reassessment. In addition, if your symptoms recur or worsen such as worsening chest pain or dyspnea, please return to the nearest emergency department for reassessment. You have been given a referral for follow-up with a neurologist to to manage her stroke risk factors. Please also follow up with your primary care doctor. Referrals: Milla Carlos MD [Primary Care Provider] - Tamiko Sierra MD [Staff Physician] - - Critical Care Critical Care Time: Yes (Patient was evaluated emergently for initial concern for CVA. ) Attestation: On 04/13/21, the high probability of a clinically significant, sudden or life threatening deterioration of the following system(s) required my full and direct attention, intervention and personal management. The time I documented below is in addition to time spent performing reported procedures but includes the following listed in this critical care notation. Vital system(s) involved:: Central Nervous System My critical care processes included: Assessment & monitoring of V/S, Initial and Re-exams, Data Review/Interpretation, Coordinating Care, Documentation Medical Decision Making - Medical Records Medical records reviewed: Yes: I reviewed the patient's medical records. - Alli Inquiry Pt receiving controlled substance: No Vital Signs: 04/13/21 14:49 04/13/21 15:30 04/13/21 16:00 Temperature 97.9 F Temperature Source Oral Pulse Rate 65 72 Pulse Rate [Right Radial] 81 Respiratory Rate 18 21 20 Blood Pressure 134/72 158/88 H Blood Pressure [Right Arm] 122/58 L Blood Pressure Mean 112 115 Blood Pressure Mean [Right Arm] 79 Blood Pressure Source Blood Pressure Source [Right Arm] Automatic Cuff Blood Pressure Position Blood Pressure Position [Right Arm] Sitting 02 Sat by Pulse Oximetry 95 95 95 Oxygen Delivery Method Room Air 04/13/21 16:50 04/13/21 17:00 04/13/21 18:25 Temperature 97.7 F Temperature Source Oral Pulse Rate 76 65 72 Pulse Rate [Right Radial] Respiratory Rate 16 17 17 Blood Pressure 179/97 H 175/92 H 178/98 H Blood Pressure [Right Arm] Blood Pressure Mean 108 117 Blood Pressure Mean [Right Arm] Blood Pressure Source Automatic Cuff Blood Pressure Source [Right Arm] Blood Pressure Position Supine Blood Pressure Position [Right Arm] 02 Sat by Pulse Oximetry 95 96 Oxygen Delivery Method Room Air - Lab Data Lab results reviewed: Yes: I reviewed the patient's lab results. Lab Results 04/13/21 15:25: WBC 6.5, RBC 4.15 L, Hgb 14.3, Hct 43.2, MCV 104.1 H, MCH 34.3 H, MCHC 33.0, RDW 12.8, Plt Count 191, MPV 7.7, Neut % (Auto) 57.1, Lymph % (Auto) 26.3, [place] % (Auto) 7.1, Eos % (Auto) 8.5, Baso % (Auto) 1.0, Neut # (Auto) 3.7, Lymph # (Auto) 1.7, [place] # (Auto) 0.5, Eos # (Auto) 0.6 H, Baso # (Auto) 0.1 04/13/21 15:25: PT 11.2, INR 0.99 04/13/21 15:25: Sodium 138, Potassium 3.9, Chloride 104, Carbon Dioxide 27, Anion Gap 10.9, BUN 14, Creatinine 0.70, Estimated Creat Clear 75, Estimated GFR 114, Est GFR ( Amer) 137, Glucose 140 H, Calcium 9.3, Troponin I < 0.01 04/13/21 17:52: Troponin I < 0.01 Result diagrams: 04/13/21 15:25 04/13/21 15:25 Orders (Tests/Meds): ED MEDICATIONS Discontinued Medications Generic Name Dose Route Start Last Admin Trade Name Freq PRN Reason Stop Dose Admin Iopamidol 100 ml 04/13/21 16:42 04/13/21 16:43 Iopamidol-370 (76%);100ml
[2021-04-13 18:25] VITALS: BP 178/98; PULSE 72; RESP 17; TEMP 36.5; O2SAT 95
[2021-04-13 18:40] LABS: Troponin I < 0.01 ng/ml (0.00-0.034)
== END 2021-04-13 16:25 | disposition home or self-care (01) ==
PROVIDERS: Emergency Provider Emergency Medicine; PCP Family Medicine
DX: R07.89 Other chest pain (principal); Z86.73 Personal history of transient ischemic attack (TIA), and cerebral infarction without residual deficits; I10 Essential (primary) hypertension; E78.5 Hyperlipidemia, unspecified; I25.10 Atherosclerotic heart disease of native coronary artery without angina pectoris; Z79.899 Other long term (current) drug therapy
CPT/HCPCS: 36415; 70450; 70496; 70498; 71045; 80048; 84484; 85025; 85610; 93005; 93041; 96374; 99283; Q9967

== ENCOUNTER → 2021-05-14 09:11 | Outpatient (CLI) | payer BC, SELFPAY | PROVIDERS: PCP Family Medicine; Visit Provider Urology | DX: R07.9 Chest pain, unspecified (principal); R55 Syncope and collapse; I25.10 Atherosclerotic heart disease of native coronary artery without angina pectoris; I11.9 Hypertensive heart disease without heart failure; E66.01 Morbid (severe) obesity due to excess calories; I44.0 Atrioventricular block, first degree; E78.5 Hyperlipidemia, unspecified; G47.33 Obstructive sleep apnea (adult) (pediatric); Z68.43 Body mass index [BMI] 50.0-59.9, adult | CPT/HCPCS: 93270 ==

== ENCOUNTER → 2021-05-16 16:05 | Outpatient (CLI) | payer BC, SELFPAY ==
--- NOTE | 2021-05-16 16:05 | MR_ITS ---
PROCEDURE: MR HEAD/BRAIN WO CON CLINICAL INDICATION: abnormal head CT COMPARISON: CT CT ANGIO NECK from 04/13/[address] ANGIO HEAD from 04/13/[address] HEAD/BRAIN WO CON from 04/13/2021 TECHNIQUE: Routine multiplanar multi echo sequences are performed without gadolinium enhancement. FINDINGS: No midline shift, mass effect, intracranial hemorrhage, or hydrocephalus. The cerebellopontine angles, cerebellum, and brainstem have an unremarkable appearance. Motion artifact is present on nearly every sequence despite multiple sequences repeated. Scattered T2 white matter hyperintensities which do not demonstrate restricted diffusion. The pituitary, optic chiasm, corpus callosum, and craniocervical junction are unremarkable. No mastoid effusion or sinus air-fluid level.. IMPRESSION: No acute intracranial findings. Fine detail is somewhat limited secondary to motion artifact. Dictated by: Michele Kenney MD 05/18/2021 08:46 Michele Kenney MD in [place] 05/18/2021 08:46
== END ==
PROVIDERS: PCP Family Medicine; Visit Provider Specialist
DX: R93.0 Abnormal findings on diagnostic imaging of skull and head, not elsewhere classified (principal); Z86.73 Personal history of transient ischemic attack (TIA), and cerebral infarction without residual deficits
CPT/HCPCS: 70551

== ENCOUNTER → 2021-05-18 08:35 | Outpatient (CLI) | payer BC, SELFPAY ==
--- NOTE | 2021-05-18 08:39 | CA_ITS ---
APPROVED REPORT Pool Installer: Rita Robledo RVT Laterality: Bilateral Study Quality: Good Indications: LEIA Risk Factors Hypertension: TIA/CVA History Hyperlipidemia Smoking Doppler Spectral Velocity Analysis ECA (R) 121.90/16.00 cm/s ECA (L) 72.70/17.10 cm/s dICA (R) 93.00/32.10 cm/s dICA (L) 81.30/35.30 cm/s Kimberly (R) 86.60/22.50 cm/s Kimberly (L) 77.00/28.90 cm/s pICA (R) 89.80/24.60 cm/s pICA (L) 67.40/21.40 cm/s dCCA (R) 83.40/21.40 cm/s dCCA (L) 99.40/22.50 cm/s pCCA (R) 108.00/15.00 cm/s pCCA (L) 150.80/20.30 cm/s Vert (R) 69.50/23.50 cm/s Vert (L) 55.60/15.00 cm/s ICA/CCA 1.12 ICA/CCA 0.82 Findings Study suggets 20-49% stenosis of the right internal cartoid artery. Study suggests less than 20% stenosis of the left internal cartoid artery. Antegrade flow seen bilateral vertebral arteries. Conclusion Study suggets 20-49% stenosis of the right internal cartoid artery. Study suggests less than 20% stenosis of the left internal cartoid artery. Antegrade flow seen bilateral vertebral arteries. Electronically signed by : Michele Kenney MD 05/18/2021 14:43:18
== END ==
PROVIDERS: PCP Family Medicine; Visit Provider Urology
DX: R07.9 Chest pain, unspecified (principal); R55 Syncope and collapse; I25.10 Atherosclerotic heart disease of native coronary artery without angina pectoris; I11.9 Hypertensive heart disease without heart failure; E78.5 Hyperlipidemia, unspecified; I44.0 Atrioventricular block, first degree; I65.23 Occlusion and stenosis of bilateral carotid arteries; G47.33 Obstructive sleep apnea (adult) (pediatric); E66.01 Morbid (severe) obesity due to excess calories; Z68.43 Body mass index [BMI] 50.0-59.9, adult
CPT/HCPCS: 93306; 93880

== ENCOUNTER → 2023-01-16 09:04 | Outpatient (CLI) | payer MEDICARE, SELFPAY ==
[2023-01-16 10:00] LABS: Basophils % 0.4 % (0.1-2.0); Eosinophils # 0.5 K/mm3 (0.0-0.4); Eosinophils % 6.2 % (0.1-12.0); Hematocrit 43.5 % (42.0-52.0); Hemoglobin 14.2 g/dL (14.1-18.0); Hemoglobin A1C 6.7 % (4.0-6.0); Lymphocytes # 2.1 K/mm3 (0.7-4.5); Lymphocytes % 29.1 % (10-50); Mean Corpuscular HGB Conc 32.6 g/dL (31.8-35.4); Mean Corpuscular Hemoglobin 32.3 pg (27.0-31.2); Mean Corpuscular Volume 99.2 fl (80-94); Mean Platelet Volume 7.5 fl (7.4-10.4); Monocytes # 0.5 K/mm3 (0.1-1.0); Monocytes % 7.5 % (1.7-9.3); Neutrophils # 4.1 K/mm3 (1.8-7.8); Neutrophils % 56.7 % (37.0-80.0); Platelet Count 152 K/mm3 (142-424); Red Blood Count 4.39 M/mm3 (4.60-6.20); Red Cell Distribution Width 12.6 % (11.5-17.5); White Blood Count 7.2 K/mm3 (4.8-10.8)
[2023-01-16 10:30] LABS: 25-OH Vitamin D, Total 45.2 ng/mL (30-100)
[2023-01-16 10:43] LABS: Prostate Specific Ag Screen 0.2 ng/ml (0.0-4.0)
[2023-01-16 10:59] LABS: Alanine Aminotransferase 59 U/L (12-78); Albumin Level 4.2 g/dl (3.5-5.0); Albumin/Globulin Ratio 1.4 (1.1-1.8); Alkaline Phosphatase 97 U/L (38-126); Anion Gap 11.6 mEq/L (5-15); Aspartate Amino Transferase 65 U/L (17-59); Bilirubin,Total 0.7 mg/dl (0.2-1.3); Blood Urea Nitrogen 19 mg/dl (9-20); Calcium 9.8 mg/dl (8.4-10.2); Carbon Dioxide 29 mmol/L (22.0-30.0); Chloride 105 mmol/L (98-107); Chol/HDL Ratio 3.1 (1-3.5); Cholesterol 168 mg/dl (140-200); Estimated Glomerular Filt Rate 97 ml/min (>60); GFR (African American) 117 ML/MIN (>60); Glucose 164 mg/dl (74-100); HDL Cholesterol 54 mg/dl (40-60); Potassium 4.6 mmoL/L (3.5-5.1); Sodium 141 mmol/L (136-145); Total Protein,Serum 7.2 g/dl (6.3-8.2); Triglycerides 114 mg/dl (30-150); VLDL Cholesterol 23 mg/dL (0-40)
[2023-01-16 11:10] LABS: Direct LDL Cholesterol 86.46 mg/dL (100-129)
[2023-01-16 11:30] LABS: Thyroid Stimulating Hormone 3.58 uIU/mL (0.465-4.68)
== END ==
PROVIDERS: PCP Nurse Practitioner Family; Visit Provider Nurse Practitioner Family
DX: E55.9 Vitamin D deficiency, unspecified (principal); I10 Essential (primary) hypertension; R35.1 Nocturia; R39.11 Hesitancy of micturition; R06.9 Unspecified abnormalities of breathing; Z86.79 Personal history of other diseases of the circulatory system; Z12.5 Encounter for screening for malignant neoplasm of prostate; Z79.899 Other long term (current) drug therapy
CPT/HCPCS: 36415; 80053; 80061; 82306; 83036; 84443; 85025; G0103

== ENCOUNTER 2024-08-17 06:21 | Outpatient (CLI) | payer MEDICARE, SELFPAY ==
--- NOTE | 2024-08-17 06:37 | CT_ITS ---
FINAL REPORT TECHNIQUE: Thin section axial CT images with coronal and sagittal reformats were performed through the neck. This study was performed with techniques to keep radiation doses as low as reasonably achievable (ALARA). Individualized dose reduction techniques using automated exposure control or adjustment of mA and/or kV according to the patient''s size were employed. CLINICAL HISTORY: CERVICAL LYMPHADENITIS, RIGHT SIDED PAIN, TROUBLE SWALLOWING COMPARISON: 06/10/2019 FINDINGS: Salivary glands are normal. Visualized paranasal sinuses are clear. Larynx is normal. There is no tonsillar enlargement. No adenopathy is seen. There is enlargement of the jugular veins, particularly on the right, which could indicate elevated central venous pressure. Right jugular vein measures up to 43 mm in diameter. IMPRESSION: No adenopathy or mass. Enlargement of the jugular veins, particularly on the right which could indicate underlying elevated central venous pressure. Reviewed, Interpreted and Dictated by Milla Schaefer MD Transcribed by Gabi Singletary Authenticated and [facility]
== END 2024-08-17 23:59 | disposition home or self-care (01) ==
LOC: RAD 06:23
PROVIDERS: PCP Nurse Practitioner Family; Visit Provider Internal Medicine Adolescent Medicine
DX: M54.2 Cervicalgia (principal); I88.9 Nonspecific lymphadenitis, unspecified
CPT/HCPCS: 70490

== ENCOUNTER 2024-08-25 08:22 | Outpatient (CLI) | payer MEDICARE, SELFPAY ==
--- NOTE | 2024-08-25 08:26 | FL_ITS ---
FINAL REPORT CLINICAL HISTORY: DYSPHAGIA 1196.82 dap 1.16 fluoro time FINDINGS: ESOPHAGRAM HISTORY: Dysphagia PROCEDURE: The patient ingested barium. Effervescent crystals were also administered. 10 fluoroscopic spot films were obtained. Fluoro time: 1 minute 16 seconds DAP: 1196.82 uGy.m2 FINDINGS: Examination is limited secondary to patient's obesity. No aspiration was identified during the exam. No esophageal strictures identified. A 13 mm barium tablet passes through the esophagus and into the stomach without delay. There is no significant hiatal hernia. Esophageal motility was within normal limits. IMPRESSION: Normal esophagram. Films reviewed , interpreted and dictated by Dr. Schaefer. Transcribed by Aj Avina PA-C. Reviewed, Interpreted and Dictated by Milla Schaefer MD Transcribed by RENEE White Authenticated and . [facility]
[2024-08-25] MEDS: BARIUM SULFATE(LIQUID E-Z-PAQUE);355ML BOTTLE 355 ML PO (09:02)
[2024-08-25] MEDS: BARIUM SULFATE (E-Z-HD 340GM);135ML BOTTLE 135 ML PO (09:03)
[2024-08-25] MEDS: E-Z-GASII EFFERVESCENT GRANULES;1PK 1 EACH PO (09:03)
== END 2024-08-25 23:59 | disposition home or self-care (01) ==
LOC: RAD 08:24
PROVIDERS: PCP Internal Medicine Adolescent Medicine; Visit Provider Internal Medicine Adolescent Medicine
DX: R13.10 Dysphagia, unspecified (principal)
CPT/HCPCS: 74220

== ENCOUNTER 2024-12-18 14:57 | Emergency (ER) | payer MEDICARE, SELFPAY ==
[2024-12-18 15:14] VITALS: BP 119/63; PULSE 74; RESP 18; TEMP 36.9; O2SAT 96; BMI 52.0
--- OUTSIDE RECORDS SUMMARY | 2024-12-18 15:34 | XMS_ITS | Clinical Summary ---
Author Organization [facility] Address [address] [place] [address] Care Team Providers Care Medical Service Representative Name Role Phone Ifeanyi Carlos MD Primary Care Provider [phone] Social History Tobacco Use Types Packs/Day Years Used Date Smoking Tobacco: Never Assessed Sex and Gender Information Value Date Recorded Sex Assigned at Not on file Legal Sex Male 7:29 PM EDT Gender Identity Not on file Sexual Orientation Not on file Plan of Treatment Health Maintenance Due Date Last Done Comments [facility]-Depression Screening 1957 [facility]-/Child/Adol SDOH Screenings 1957 [facility]- SDOH Screenings 1975 [facility]-Adult SDOH Screenings 1975 [facility]-DTaP,Tdap,and Td Vaccine s (1 - Tdap) 1976 CT Colonography 2002 Colonoscopy 2002 FIT-DNA 2002 FIT 2002 FOBT 2002 Sigmoidoscopy 2002 [facility]-Colorectal Cancer Screening 2002 [facility]-Pneumococcal Vaccine: 50 + Years (1 of 1 - PCV) 2007 [facility]-Zoster Vaccines (2 of 2) 12/08/2018 10/13/2018 [id number] Vaccine (1 - 20 24-25 season) 2024 [facility]-Influenza Vaccine (Seas[place] n Ended) 2025 [facility]-RSV Vaccine: 60+ Years o r (1 - 1-dose 75+ series) 2032 [facility]-Hepatitis A Vaccines Aged Out 07/09/2018 No longer eligible based on patient's age to complete this topic HPV Vaccines Aged Out No longer eligi ble based on patient's age to complete this topic [facility]-HIB Vaccines Aged Out No longer e ligible based on patient's age to complete this topic [facility]-IPV Vaccines Aged Out No longer e ligible based on patient's age to complete this topic [facility]-Rotavirus Vaccines Aged Out No lo nger eligible based on patient's age to complete this topic Care Teams Medical Service Representative Relationship Specialty Start Date End Date Ifeanyi Carlos MD [address] [place] [id number] PCP - General 11/03/20
[2024-12-18 15:48] LABS: Basophils # 0.1 K/mm3 (0-0.2); Basophils % 0.5 % (0.1-2.0); Eosinophils # 0.4 Kmm3 (0.0-0.4); Eosinophils % 3.8 % (0.1-12.0); Hematocrit 41.1 % (42.0-52.0); Hemoglobin 14.1 g/dL (14.1-18.0); Immature Granulocytes # 0.03 10^3uL; Immature Granulocytes % 0.3 %; Lymphocytes # 1.6 K/mm3 (0.7-4.5); Lymphocytes % 15.6 % (10-50); Mean Corpuscular HGB Conc 34.3 g/dL (31.8-35.4); Mean Platelet Volume 9.6 fl (7.4-10.4); Monocytes # 0.7 K/mm3 (0.1-1.0); Monocytes % 7.2 % (1.7-9.3); Neutrophils # 7.4 K/mm3 (1.8-7.8); Neutrophils % 72.6 % (37.0-80.0); Nucleated Red Blood Cells # 0 10^3/uL; Nucleated Red Blood Cells % 0 %; Platelet Count 162 K/mm3 (142-424); Red Blood Count 4.15 M/mm3 (4.60-6.20); Red Cell Distribution Width 12.5 % (11.5-17.5); Red Cell Distribution Width-SD 45.2 fL; White Blood Count 10.2 K/mm3 (4.8-10.8)
[2024-12-18 16:09] LABS: Alanine Aminotransferase 33 U/L (12-78); Albumin Level 3.9 g/dl (3.5-5.0); Alkaline Phosphatase 75 U/L (38-126); Anion Gap 13.9 mEq/L (5-15); Aspartate Amino Transferase 35 U/L (17-59); Bilirubin,Total 1.1 mg/dl (0.2-1.3); Blood Urea Nitrogen 18 mg/dl (9-20); Calcium 10.1 mg/dl (8.4-10.2); Carbon Dioxide 25 mmol/L (22.0-30.0); Chloride 105 mmol/L (98-107); Creatinine Clearance Estimated 72 mL/min (50-200); Estimated Glomerular Filt Rate 84 ml/min (>60); GFR (African American) 102 ML/MIN (>60); Globulin 3.9 g/dL (1.3-3.2); Glucose 158 mg/dl (74-100); Lactic Acid 1.3 mmol/L (0.7-2.1); Potassium 3.9 mmoL/L (3.5-5.1); Sodium 140 mmol/L (136-145); Total Protein,Serum 7.8 g/dl (6.3-8.2)
[2024-12-18 16:12] LABS: Hemoglobin A1C 6.7 % (4.0-6.0)
[2024-12-18 16:19] LABS: C-Reactive Protein 45.8 mg/L (0-4)
[2024-12-18 16:25] LABS: NT Pro Brain Natriuretic Pep. 44.1 pg/mL (0-125)
[2024-12-18 16:32] VITALS: BP 153/87; PULSE 65; O2SAT 96
--- NOTE | 2024-12-18 16:42 | ECG_ITS ---
APPROVED REPORT Exam: Resting ECG HR:64 bpm ECG Measurements Heart Rate 64 AXES MO 193 P 16 QRSd 101 QRS 59 QT 401 T 52 QTc 410 Conclusion Sinus rhythm Electronically signed by : MU BANKS, 12/18/2024 22:39:14
[2024-12-18 16:52] LABS: Procalcitonin 0.082 ng/mL (0.0-2.0)
--- NOTE | 2024-12-18 16:59 | ED_ITS ---
Discharge Plan Disposition Patient Disposition: Home, Self-Care Prescriptions Prescriptions: No Action aspirin [Adult Low Dose Aspirin] 81 mg tablet,delayed release (DR/EC) 81 mg PO HS multivitamin,[id number]-[id number] 1 EACH tablet 1 each PO DAILY carvedilol 6.25 mg tablet 6.25 mg PO DAILY cholecalciferol (vitamin D3) 50 mcg (2,000 unit) capsule 2,000 unit PO DAILY atorvastatin 10 mg tablet 40 mg PO HS metformin 500 mg tablet extended release 24 hr 500 mg PO DAILY furosemide 40 MG tablet 40 mg PO DAILY Patient Comments: TAKE 1 TABLET BY MOUTH EVERY DAY clopidogrel 75 MG tablet 75 mg PO DAILY Patient Comments: TAKE 1 TABLET BY MOUTH EVERY DAY Referrals Follow up/Referrals: Ernesto Grande MD [Primary Care Provider, Internal Medicine] - See instructions Activity Restrictions/Add. Instructions Additional Instructions/Restrictions: Call your family doctor to establish care for this visit to the emergency department and schedule follow-up within 48 hours to ensure improvement. If you have any worsening of your condition or any other concerning signs or symptoms, return to the emergency department or your primary care doctor for further evaluation. Redness will not get better for about 3 days. Any other clinically concerning changes, return to the emergency department promptly. Talk to your family doctor about diabetes treatment, today your A1c was 6.7. Clinical Impressions Clinical Impression: Cellulitis of right leg without foot Print Language Print Language: Moldovan Discharge ED Provider: Jean Paul Crook General Adult HPI General Chief complaint: Extremity Problem,Nontraumatic Stated complaint: right leg pain,swollen,feverish Time Seen by Provider: 12/18/24 15:00 Mode of Arrival: Wheelchair Description of Symptoms (Recalled from ER Triage Doc. by RN): c/o right leg swelling,redness,warmth, painful that started night. History of Present Illness HPI narrative: Please note that above description of symptoms, in this electronic medical record under categorization of recalled from ER triage doctor by RN are reflective of an initial nursing assessment, however, is not reflective of my full history and physical exam that was personally taken and clarified. Consequentially, this preceding description of symptoms, which may include the patient's categorized chief complaint in the EMR, do not reflect my personal clinical impression, and the ultimate description of history of present illness and patient stated complaints should be deferred to this section of the note. Unless stated otherwise or congruent with this section of the note, additional signs, symptoms, or incongruence should be interpreted as inaccurate with my clinical impression. Related Data Home Medications ?Medication ?Instructions ?Recorded ?Confirmed aspirin 81 mg tablet,delayed 81 mg PO HS Heart disease 09/08/17 12/18/24 release (Adult Low Dose Aspirin) multivitamin,[id number] 1 each PO DAILY Suppleme nt 07/16/18 12/18/24 clopidogrel 75 mg tablet 75 mg PO DAILY platelet inhi bitor 12/16/18 12/18/24 furosemide 40 mg tablet 40 mg PO DAILY diuretic 11/2212/18/24 carvedilol 6.25 mg tablet 6.25 mg PO DAILY Heart disea se 11/10/19 12/18/24 cholecalciferol (vitamin D3) 50 2,000 unit PO DAILY Payne pplement 11/10/19 12/18/24 mcg (2,000 unit) capsule atorvastatin 10 mg tablet 40 mg PO HS Cholesterol 05/2412/18/24 metformin 500 mg tablet,extended 500 mg PO DAILY 12/1812/18/24 release 24 hr Allergies Allergy/AdvReac Type Severity Reaction Status Date / Time No Known Allergies Allergy Verified 06/20/21 09:04 [facility] Disclaimer: The information contained in this section may have been updated after the patient was seen, as this information can be updated by other users. Medical History (Updated 12/18/24 @ 17:46 by Jean Paul Crook MD) Syncope Social History Smoking Status: Former smoker alcohol intake: never counseling provided: none substance use type: denies use current occupational status: employed Travel in the last 8 weeks?: None household members: spouse housing: house caffeine: No Have you lived/traveled outside [place] in past 30 days?: No Contact w/someone who lives/traveled outside [place] past 30 days?: No Exposure to someone with infectious disease in past 14 days?: No Do you have a fever (greater than 100.4 F or 38 C)?: No Have you tested positive for COVID-19?: No Exposed to someone with COVID-19 in past 14 days?: No Do you have a sore throat?: No Do you have a cough?: No Do you have any weakness?: No Do you have any diarrhea?: No Are you experiencing any unusual bleeding?: No Do you have any muscle aches/pain?: No Do you have any abdominal pain?: No Are you experiencing loss of taste or smell?: No Other Medical History Have you received the Flu Vaccine for this season: No Have you received the Pneumonia Vaccine: No ROS Obtained: Yes All systems reviewed & no additional complaints except as documented Physical Exam General General appearance: alert, in no apparent distress and obese Head Head exam: atraumatic and normocephalic Eye Eye exam: Present normal appearance, PERRL and EOMI Neck Neck exam: Present normal inspection, full ROM and trachea midline Respiratory Respiratory exam: Absent respiratory distress, wheezes, stridor, accessory muscle use or prolonged expiratory phase Cardiovascular Cardiovascular exam: Present other (Pulses equal symmetric in upper and lower extremities) Abdominal Exam Abdominal exam: Present soft; Absent distention, tenderness or pulsatile mass Extremities Exam Extremities exam: Present edema (Bilateral lower extremity pitting edema right greater than left. Right leg is also erythematous, warm, larger in diameter grossly. It is tender more distally near the ankle.) Neurological Exam Neurological exam: Present alert, oriented X3 and CN II-XII intact; Absent motor sensory deficit Skin Skin exam: Present warm and dry; Absent diaphoresis or erythema Medical Decision Making Medical Records Medical records reviewed: Yes I reviewed the patient's medical records. Screening: Per USPSTF and CDC recommendations, given the prevalence of disease in our region, it is our hospital?s policy to screen for HIV and viral Hepatitis for all patients aged 18 and over and those with ongoing risk factors. Alli Inquiry Pt receiving controlled substance: No Alli was queried for this patient: No Vital Signs: 12/18/24 15:14 12/18/24 16:32 12/18/24 17:00 Temperature 98.5 F Temperature Source Oral Pulse Rate 65 67 Pulse Rate [Left Radial] 74 Respiratory Rate 18 Blood Pressure 153/87 H 152/80 H Blood Pressure [Right Arm] 119/63 Blood Pressure Mean [Right Arm] 81 02 Sat by Pulse Oximetry 96 96 98 Oxygen Delivery Method Room Air Room Air Room Air Lab Data Lab Results 12/18/24 15:35: WBC 10.2, RBC 4.15 L, Hgb 14.1, Hct 41.1 L, MCV 99.0 H, MCH 34.0 H, MCHC 34.3, RDW 12.5, Plt Count 162, MPV 9.6, Neut % (Auto) 72.6, Lymph % (Auto) 15.6, [place] % (Auto) 7.2, Eos % (Auto) 3.8, Baso % (Auto) 0.5, Neut # (Auto) 7.4, Lymph # (Auto) 1.6, [place] # (Auto) 0.7, Eos # (Auto) 0.4, Baso # (Auto) 0.1, Sodium 140, Potassium 3.9, Chloride 105, Carbon Dioxide 25, Anion Gap 13.9, BUN 18, Creatinine 0.90, Estimated Creat Clear 72, Estimated GFR 84, Est GFR ( Amer) 102, Glucose 158 H, Hemoglobin A1c 6.7 H, Lactate 1.3, Calcium 10.1, Total Bilirubin 1.1, AST 35, ALT 33, Alkaline Phosphatase 75, C- Reactive Protein 45.8 H, NT-Pro-B Natriuret Pep 44.1, Total Protein 7.8, Albumin 3.9, Globulin 3.9 H, Albumin/Globulin Ratio 1.0 L, Procalcitonin 0.082 12/18/24 15:35 12/18/24 15:35 Orders (Tests/Meds): ED MEDICATIONS Discontinued Medications Generic Name Dose Route Start Last Admin Trade Name Freq PRN Reason Stop Dose Admin Dalbavancin 1,500 mg/ Dextrose 250 mls @ 500 mls/hr 12/18/24 17:32 IV 12/18/24 17:33 ONCE ONE Ketorolac Tromethamine 15 mg 12/18/24 17:33 Ketorolac 30mg/Ml Vial IV 12/18/24 17:34 ONCE ONE ORDERS Category Date Time Status POCUS Point of Care (ER Only) Stat Exams 12/18/24 16:59 Completed CBC w/Auto Diff [Complete Blood Count Auto Diff] Stat Lab 12/18/24 15:35 Completed CMP [Comprehensive Metabolic Panel] Stat Lab 12/18/24 15:35 Completed CRP [C-Reactive Protein] Stat Lab 12/18/24 15:35 Completed Hemoglobin A1C Stat Lab 12/18/24 15:35 Completed Lactic Acid Stat Lab 12/18/24 15:35 Completed NT Pro Brain Natriuretic Pep. Stat Lab 12/18/24 15:35 Completed Procalcitonin Stat Lab 12/18/24 15:35 Completed Medical Decision Narrative: 69-year-old male history of hypertension, hyperlipidemia, diabetes, CAD presenting with right lower extremity pain and redness. States has been going on for 3 to 4 days. Getting worse. No fevers or chills, nausea or vomiting, systemic signs or symptoms. Started near his knee and has descended distally. No trauma to the area. It is more swollen than the other side as well. No PND, orthopnea, cough, chest pain, exertional dyspnea, weakness, etc. History was obtained via conversation with patient and visitor. On arrival, patient hemodynamically stable, alert, oriented x4, appropriate, GCS 15, moving all extremities spontaneously, pupils equal and reactive to light. Full physical exam performed and significant for well-appearing male who is in no acute distress. Obese. Speaking in full sentences. Bilateral lower extremity pitting edema right greater than left. Right leg is also erythematous, warm, larger in diameter grossly. It is tender more distally near the ankle. Differential includes cellulitis, CHF, dependent edema, deep space infection, among others. Patient placed on continuous cardiac monitoring and continuous pulse ox with initial blood pressure 119/63, heart rate 74, saturation 96% on room air. EKG independently interpreted sinus rhythm 64 bpm LA 193, QRS 101, QTc 410 normal axis no acute ischemic changes. Patient was given Toradol for symptomatic management and correction of underlying abnormalities. Workup independently interpreted and significant for normal white count. Patient's A1c elevated 6.7 and CRP elevated at nearly 46. Procalcitonin normal. Bedside [id number] ultrasound was performed and patient has lower extremity edema and cellulitis without discernible DVT. Reevaluation, patient feeling all right. He was given 1500 mg of Dalvance. Given patient presentation, workup, history, this most likely represents lower extremity cellulitis, extensive. Recommended he follow- up closely with his family doctor regarding this visit to the emergency department. He voices understanding. Close return precautions discussed. Because patient at baseline without signs or symptoms of clinical decompensation, deemed appropriate for discharge. Results were relayed to patient who voiced understanding and were agreeable to outpatient management and follow up. I discussed my clinical impression with patient and answered all questions. At this time, the evidence for any other entities in the differential is insufficient to warrant any further testing or ED observation. This was explained as well. Advisory was given that persistent or worsening symptoms require further evaluation. I confirmed the understanding of this discussion. Branch Store Manager disclaimer Much of this encounter note is an electronic solar pool heating installer spoken language to printed text. Electronic solar pool heating installer of the spoken language may permit errors. Although I have reviewed the note, some errors may still exist. Critical Care Critical Care Time Critical Care Time: No
[2024-12-18 17:00] VITALS: BP 152/80; PULSE 67; O2SAT 98
[2024-12-18 17:30] VITALS: BP 155/81; PULSE 70; RESP 20; O2SAT 97
[2024-12-18] MEDS: KETOROLAC 30MG/ML VIAL 15 MG IV (17:48)
[2024-12-18] MEDS: DALBAVANCIN HCL 1,500 MG in DEXTROSE 5 % IN WATER 250 ML 500 MG IV (17:50)
[2024-12-18 18:13] VITALS: BP 110/61; PULSE 68; RESP 16; TEMP 36.8; O2SAT 98
== END 2024-12-18 18:23 | disposition home or self-care (01) ==
PROVIDERS: Emergency Provider Emergency Medicine; PCP Internal Medicine Adolescent Medicine
DX: L03.115 Cellulitis of right lower limb (principal); M79.661 Pain in right lower leg; I10 Essential (primary) hypertension; E78.5 Hyperlipidemia, unspecified; E11.9 Type 2 diabetes mellitus without complications; I25.10 Atherosclerotic heart disease of native coronary artery without angina pectoris; Z87.891 Personal history of nicotine dependence
CPT/HCPCS: 80053; 83036; 83605; 83880; 84145; 85025; 86140; 93005; 96374; 96375; 99284; J0875; J1885; J7060

== ENCOUNTER 2025-02-18 11:22 | Outpatient (CLI) | payer MEDICARE, SELFPAY ==
--- OUTSIDE RECORDS SUMMARY | 2025-01-26 11:34 | XMS_ITS | Encounter Summary ---
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 Phone Provider, No Known Primary Care Provider Unavail able Reason for Referral * Home Health (Routine) - Pending Review Specialty Diagnoses / Procedures Referred By Ruben t Referred To Contact Home Health Services Diagnoses Altered mental status, unspecified altered mental status type Acute encephalopathy Acute respiratory failure, unspecified whether with hypoxia or hypercapnia Dysphagia, unspecified type Obesity, morbid, BMI 40.0-49.9 Encephalopathy, metabolic Hypophosphatemia Transient alteration of awareness Essential hypertension Asymptomatic stenosis of right vertebral artery Procedures OH OFFICE/OUTPATIENT NEW MODERATE MDM 45 MINUTES Mario Miranda MD [address] [facility] [address] [place] [address] Phone: tel: fax: Referral ID Status Reason Start Date Expiration Date Visits Requested Visits Authorized Pending Review Specialty Services Required 02/02/2025 05/04/2026 999 999 Reason for Visit * Reason Comments Loss of Consciousness * Auth/Cert (Routine) Specialty Diagnoses / Procedures Referred By Ruben navarro Referred To Contact Diagnoses Altered mental status Referral ID Status Reason Start Date Expiration Date Visits Re quested Visits Authorized 1 1 Encounter Details Date Type Department Care Team (Late st Contact Info) Description 01/26/2025 11:34 AM EDT - 02/02/2025 1:30 PM EDT Hospital Encounter [facility] [address] [place] [id number] Daniel Ocampo MD [address] [place] [address] Nahun Baca MD [address] [place] [address] Heron Abdul MD [address] [place] [address] Mario Miranda MD [address] [facility] [address] [place] [address] Altered mental status, unspecified altered mental status type (Primary Dx); Acute encephalopathy; Acute respiratory failure, unspecified whether with hypoxia or hypercapnia; Dysphagia, unspecified type; Obesity, morbid, BMI 40.0-49.9; Encephalopathy, metabolic; Hypophosphatemia; Transient alteration of awareness; Essential hypertension; Asymptomatic stenosis of right vertebral artery Discharge Disposition: Home-Health Care [facility] [place] Social History Tobacco Use Types Packs/Day Years Used Date Smoking Tobacco: Former Smokeless Tobacco: Current Chew Comments:QUIT SMOKING IN 198 2; Alcohol Use Standard Drinks/Week Comments Yes 0 (1 standard drink = 0.6 oz pur e alcohol) AUDIT-C Answer Date Recorded Q1: How often do you have a drink containing alc ohol? Monthly or less 01/26/2025 Q2: How many drinks containi ng alcohol do you have on a typical day when you are drinking? 1 or 2 01/26/2025 Q3: How often do you have si x or more drinks on one occasion? Never 01/26/2025 Abuse Screen Answer Date Recorded Feels Unsafe at Home or Work/School unab le to answer (comment required) 01/26/2025 Feels Threatened by Someone unable to an swer (comment required) 01/26/2025 Does Anyone Try to Keep You From Having Contact with Others or Doing Things Outside Your Home? unable to answer (comment required) 01/26/2025 Physical Signs of Abuse Present patient unable t o answer 01/26/2025 Housing Stability Answer Date Recorded Current Living Arrangements home 02/2025 Potentially Unsafe Housing Conditions Not on surinder e 01/29/2025 Family and Community Support Answer Jarrod e Recorded Help with Day-to-Day Activities Not on file 04/04/2023 Lonely or Isolated Not on file 04/04/2023 Employment Answer Date Recorded Do you want help finding or keeping work or a geri b? Not on file 04/04/2023 Disabilities Answer Date Recorded Difficulty Concentrating, Remembering or Making Decisions no 01/26/2025 Difficulty Managing Errands Independently no 01/26/2025 Education Answer Date Recorded Help with school or training? Not on file Preferred Language Mauritanian 01/27/2025 Sex and Gender Information Value Date Recorded Sex Assigned at Not on file Legal Sex Male 9:35 AM EST Gender Identity Not on file Sexual Orientation Not on file documented as of this encounter Last Filed Vital Signs Vital Sign Reading Time Taken Comments Blood Pressure 134/93 02/02/2025 11:30 AM EDT Pulse 78 02/02/2025 1:00 PM EDT Temperature 36.7 C (98 F) 02/02/2025 11:30 AM EDT Respiratory Rate 18 02/02/2025 11:30 AM EDT Oxygen Saturation 90% 02/02/2025 11:30 AM EDT Inhaled Oxygen Concentration - - Weight 152 kg (335 lb 1.6 oz) 01/27/2025 6:00 AM EDT Height 182.9 cm (6' 0.01 ) 01/27/2025 7:07 PM ED T Body Mass Index 45.44 01/27/2025 6:00 AM EDT documented in this encounter Functional Status * Calculated C-SSRS Risk Score (Lifetime/Recent) Answer Date of Assessment Author No Risk Indicated 01/26/2025 1:25 PM EDT Andreea Harden, ALISA * [place] Suicide Severity Rating Scale (Screener/Recent Self-Report) Question Answer Date of Assessment Author 1. Wish to be (Past 1 Month) No 025 1:25 PM EDT Andreea Harden, ALISA 2. Non-Specific Active Suici bradley Thoughts (Past 1 Month) No 01/26/2025 1:25 PM EDT Anton Harden, ALISA 6. Suicidal Behavior (Lifetime) No 1:25 PM EDT Andreea Harden RN documented as of this encounter Discharge Summaries * Mario Miranda MD - 02/02/2025 1:30 PM EDT Images from the original note were not included. [facility] Medicine Services DISCHARGE SUMMARY Patient Name: Charles Gardner : 1955 Date of Admission: 01/26/2025 11:34 AM Date of Discharge: 02/02/2025 Primary Care Physician: Provider, No Known Consults No orders found from 12/28/2024 to 01/27/2025. Hospital Course Presenting Problem: AMS Active Hospital Problems Diagnosis POA ??? Encephalopathy, metabolic [G93.41] Yes ??? Hypophosphatemia [E83.39] No ??? Essential hypertension [I10] Yes ??? Type 2 diabetes mellitus [E11.9] Yes ??? Obesity, morbid, BMI 40.0-49.9 [E66.01] Yes ??? Hyperlipidemia [E78.5] Yes Resolved Hospital Problems Diagnosis Date Resolved POA ??? Altered mental status [R41.82] 01/31/2025 Yes Hospital Course: Charles Gardner is a 69 y.o. male here with AMS AMS -unclear etiology, resolved -possibly due to PNA/infectious etiology -MRI negative for CVA -EEG negative for seizure activity PNA Respiratory failure with hypoxia -weaned oxygen -completed course of abx -pulmonary toilet Anemia -monitor/PCP follow up Discharge Follow Up Recommendations for outpatient labs/diagnostics: As written Day of Discharge HPI: Up in bed. Constipation better. Dyspnea better, cough/congestion resolving. Objective Objective Vital Signs: Temp: [97.8 ??F (36.6 ??C)-98.1 ??F (36.7 ??C)] 97.9 ??F (36.6 ??C) Heart Rate: [66-77] 77 Resp: [18-22] 18 BP: (124-167)/(64-92) 167/89 Flow (L/min) (Oxygen Therapy): [2] 2 Physical Exam: NAD, alert OP clear, dry MM Neck supple RRR Cough clear now, lungs grossly CTAB +BS, soft Obese JOHNSON Normal affect Family at bedside No change from 02/01 otherwise Pertinent and/or Most Recent Results LAB RESULTS: Lab 02/02/25 0850 02/01/25 0446 01/31/25 0316 01/30/25 0341 01/29/25 0357 01/28/25 1143 01/28/25 0417 WBC 6.20 6.19 5.59 2.70* 11.21* < > -- HEMOGLOBIN 14.1 13.2 13.4 16.0 15.7 < > -- HEMATOCRIT 40.5 38.3 39.1 48.8 47.9 < > -- PLATELETS 143 141 126* 161 174 < > -- NEUTROS ABS 3.22 3.46 2.98 1.56* 8.15* < > -- IMMATURE GRANS (ABS) 0.21* 0.13* 0.05 0.00 0.06* < > -- LYMPHS ABS 1.88 1.58 1.41 0.58* 1.81 < > -- MONOS ABS 0.64 0.72 0.68 0.35 1.05* < > -- EOS ABS 0.21 0.25 0.43* 0.18 0.11 < > -- MCV 96.4 97.2* 99.7* 103.2* 102.1* < > -- CRP -- -- -- -- -- -- 4.31* < > = values in this interval not displayed. Lab 02/02/25 0958 02/01/25 0446 01/31/25 1259 01/31/256 01/30/25 03401/29/25 035 SODIUM 140 140 -- 135* 141 141 POTASSIUM 3.7 4.0 4.4 3.6 4.3 3.9 CHLORIDE 106 106 -- 104 107 108* CO2 23.5 25.0 -- 21.1* 21.8* 18.4* ANION GAP 10.5 9.0 -- 9.9 12.2 14.6 BUN 8.6 11.2 -- 15.6 25.1* 24.2* CREATININE 0.61* 0.70* -- 0.73* 0.91 0.94 EGFR 105.3 101.0 -- 99.7 92.4 88.9 GLUCOSE 143* 117* -- 108* 148* 118* CALCIUM 9.0 8.8 -- 8.5* 9.0 9.3 MAGNESIUM 2.1 2.2 -- 2.1 2.2 2.3 PHOSPHORUS 2.4* 2.7 1.7* 1.8* 2.5 3.9 TSH -- -- -- -- 1.180 -- Lab 01/28/25 0417 TOTAL PROTEIN 7.3 ALBUMIN 3.9 GLOBULIN 3.4 ALT (SGPT) 28 AST (SGOT) 31 BILIRUBIN 1.0 ALK PHOS 86 Lab 01/28/25 0333 01/27/25 1744 PH, ARTERIAL 7.430 7.459* PCO2, ARTERIAL 31.7* 32.0* PO2 ART 73.6* 120.0* FIO2 40 60 HCO3 ART 21.0 22.7 BASE EXCESS ART -2.3* -0.3* CARBOXYHEMOGLOBIN 1.1 0.8 Brief Urine Lab Results (Last result in the past 365 days) Color Clarity Blood Leuk Est Nitrite Protein CREAT Urine HCG 01/26/25 1353 Yellow Clear Trace Negative Negative Trace Microbiology Results (last 10 days) Procedure Component Value - Date/Time Respiratory Panel PCR w/COVID-19(SARS-CoV-2) SAMREEN/PIETRO/NA/PAD/COR/ALEXANDER In-House, RN OUTPATIENT SURGERY Swab in UTM/VTM, 2 HR TAT - Swab, Nasopharynx [[id number]] (Normal) Collected: 01/26/25 1206 Lab Status: Final result Specimen: Swab from Nasopharynx Updated: 01/26/25 1307 ADENOVIRUS, PCR Not Detected Coronavirus 229E Not Detected Coronavirus HKU1 Not Detected Coronavirus NL63 Not Detected Coronavirus OC43 Not Detected COVID19 Not Detected Human Metapneumovirus Not Detected Human Rhinovirus/Enterovirus Not Detected Influenza A PCR Not Detected Influenza B PCR Not Detected Parainfluenza Virus 1 Not Detected Parainfluenza Virus 2 Not Detected Parainfluenza Virus 3 Not Detected Parainfluenza Virus 4 Not Detected RSV, PCR Not Detected Bordetella pertussis pcr Not Detected Bordetella parapertussis PCR Not Detected Chlamydophila pneumoniae PCR Not Detected Mycoplasma pneumo by PCR Not Detected Narrative: In the setting of a positive respiratory panel with a viral infection PLUS a negative procalcitoninwithout other underlying concern for bacterial infection, consider observing off antibiotics or discontinuation of antibiotics and continue supportive care. If the respiratory panel is positive for atypical bacterial infection (Bordetella pertussis, Chlamydophila pneumoniae, or Mycoplasma pneumoniae), consider antibiotic de-escalation to target atypical bacterial infection. Blood Culture - Blood, Arm, Left [[id number]] (Normal) Collected: 01/26/25 1200 Lab Status: Final result Specimen: Blood from Arm, Left Updated: 01/31/25 1330 Blood Culture No growth at 5 days Narrative: Less than seven (7) mL's of blood was collected. Insufficient quantity may yield false negative results. Blood Culture - Blood, Arm, Right [[id number]] (Normal) Collected: 01/26/25 1130 Lab Status: Final result Specimen: Blood from Arm, Right Updated: 01/31/25 1330 Blood Culture No growth at 5 days Narrative: Less than seven (7) mL's of blood was collected. Insufficient quantity may yield false negative results. XR Chest 1 View Result Date: 02/02/2025 XR CHEST 1 VW Date of Exam: 02/02/2025 3:10 AM EDT Indication: eval for PNA. Evaluate for pneumonia.Comparison: 02/01/2025 radiographs Findings: Unchanged cardiomediastinal silhouette. No focal airspace opacity, pleural effusion, or pneumothorax. No acute bone abnormality. Impression: No evidence of pneumonia. Electronically Signed: Zack Francois MD 02/02/2025 7:43 AM EDT Workstation ID: [id number] XR Chest 1 View Result Date: 02/01/2025 XR CHEST 1 VW Date of Exam: 02/01/2025 5:36 AM EDT Indication: eval for PNA Comparison: Chest radiograph 01/31/2025 Findings: Stable cardiomediastinal silhouette. Patient rotated towards the left, limiting assessment of left lower lobe. No new consolidation, edema, large effusion or pneumothorax. Degenerative elated osseous change. Impression: No significant interval change. Electronically Signed: Bryn Correa MD 02/01/2025 7:58 AM EDT Workstation ID: [id number] XR Chest 1 View Result Date: 01/31/2025 XR CHEST 1 VW Date of Exam: 01/31/2025 6:00 AM EDT Indication: eval for PNA Comparison: 01/30/2025 Findings: Heart size normal. Lungs without discrete consolidation. Negative for pneumothorax or effusion. Osseous structures grossly intact. Impression: No acute process. Electronically Signed: Mustapha Peralta MD 01/31/2025 8:32 AM EDT Workstation ID: [id number] XR Chest 1 View Result Date: 01/30/2025 XR CHEST 1 VW Date of Exam: 01/30/2025 5:10 AM EDT Indication: eval for PNA Comparison: Chest x-ray 01/29/2025 Findings: The heart is stable in size. No evidence for pneumothorax or large pleural effusion. No focal consolidation. Impression: Stable chest without acute cardiopulmonary process. Electronically Signed: Carina Jean MD 01/30/2025 8:58 AM EDT Workstation ID: [id number] XR Chest 1 View Result Date: 01/29/2025 XR CHEST 1 VW Date of Exam: 01/29/2025 2:27 AM EDT Indication: Intubated Patient Comparison: 01/28/2025Findings: Interval extubation. Mild left basilar opacities, slightly improved in the interval. No definite new infiltrate. No significant pneumothorax. Possible small left effusion, as before. Heart size and mediastinal contour appear unchanged. Impression: 1.Interval extubation. 2.Mild left basilar opacities, slightly improved in the interval. 3.Possible small left effusion, as before. Electronically Signed: Eric Mcmillan 01/29/2025 8:11 AM EDT Workstation ID: [id number] CT Chest Without Contrast Diagnostic Result Date: 01/28/2025 CT CHEST WO CONTRAST DIAGNOSTIC Date of Exam: 01/27/2025 10:08 AM EDT Indication: pneumonia, ? right upper lobe mass. Comparison: CTA chest 01/26/2025 Technique: Axial CT images were obtained of the chest without contrast administration. Reconstructed coronal and sagittal images were also obtained. Automated exposure control and iterative construction methods were used. Findings: Prior CTA report described multifocal consolidation and linear airspace disease, greater in the right upper lung than elsewhere. Today's study shows ET tube just above the thor in satisfactory position. The dense rightupper lobe and posterior right lower lobe consolidation seen on the prior study has practically resolved. There is minimal remaining dependent atelectasis in the right lower lobe and minor groundglass changes, probably exaggerated by respiratory motion artifact. On the left, there is increased patchy opacity in the posterior lower lobe, images 62 through 72, whether atelectasis or developing leftlower lobe pneumonia. Left upper lobe is essentially clear. There is no pleural effusion. Images ofthe mediastinum show no evidence of pericardial effusion or mediastinal adenopathy. There is a suggestion of aortic valve calcification and minimal coronary artery calcification. Images of the upper abdomen show fatty liver change, and splenomegaly, again with lobular contour of the splenic capsule suspicious for cirrhosis. No evidence of ascites. Dense material in the dependent portion of the gallbladder is likely vicarious excretion of contrast from previous CTA. Bony structures appear to be intact. Impression: 1. Near resolution of right lung atelectasis since 01/26/2025 exam. No evidence of underlying mass or evidence to suggest residual right lung pneumonia. 2. Moderate patchy interstitial and airspace opacity of the posterior left lower lobe, whether atelectasis, or focal pneumonia. Please correlate with symptoms. 3. Liver and spleen morphology suggestive of cirrhosis again noted. Electronically Signed: Mario Bejarano MD 01/28/2025 11:02 AM EDT Workstation ID: [id number] XR Chest 1 View Result Date: 01/28/2025 XR CHEST 1 VW Date of Exam: 01/28/2025 2:31 AM EDT Indication: Intubated Patient Comparison: 01/27/2025Findings: Endotracheal tube is at the level of the thor and should be retracted about 2 cm. Heartremains enlarged. Small left pleural effusion is present. There is infiltrate or atelectasis in thebases, stable on the left and slightly improved on the right. No pneumothorax. 1.Endotracheal tube is at the level of the thor and should be retracted about 2 cm. 2.Bibasilar infiltrates, stable on the left and slightly improved on the right. Small left effusion. Electronically Signed: Tank Vogel MD 01/28/2025 5:57 AM EDT Workstation ID: [id number] XR Chest 1 View Result Date: 01/27/2025 XR CHEST 1 VW Date of Exam: 01/27/2025 12:09 AM EDT Indication: Respiratory failure. Comparison: 01/26/2025 Findings: Endotracheal tube is in good position in the mid trachea. Heart size is stable. Thereis some mild atelectasis in the bases. No pneumothorax. There is improved aeration of both upper lobes. Improved aeration of both upper lobes. Persistent bibasilar atelectasis. Electronically Signed: Tank Vogel MD 01/27/2025 6:25 AM EDT Workstation ID: [id number] MRI Brain Without Contrast Result Date: 01/27/2025 MRI BRAIN WO CONTRAST Date of Exam: 01/26/2025 10:45 PM EDT Indication: Stroke, follow up stroke ruleout, unresponsive. Comparison: CT head 01/26/2025 Technique: Routine multiplanar/multisequence sequence images of the brain were obtained without contrast administration. Findings: Diffusion images reveal no acute or subacute infarct. There is mild generalized atrophy. Ventricular size and configuration are within normal limits. T2 hyperintense changes in the periventricular and subcortical white matter bilaterally are most compatible with chronic small vessel ischemic disease. Similar changes are present in the kaden. No acute hemorrhage is identified. Craniocervical junction is normal. Pituitary unremarkable. No masses are seen. The major intracranial flow voids are maintained. There is somemucosal thickening in the paranasal sinuses, and fluid levels in the sphenoid sinuses and maxillarysinuses could reflect acute sinusitis. 1.No evidence of acute or subacute infarct. No acute hemorrhage. 2.Atrophy and chronic small vesselischemic disease noted. 3.Chronic mucosal thickening in the sinuses with fluid levels in the sphenoid and maxillary sinuses that could reflect mild acute disease. Electronically Signed: Tank Vogel MD 01/27/2025 1:30 AM EDT Workstation ID: [id number] EEG Result Date: 01/26/2025 Reason for referral: 69 y.o.male with altered mental status Technical Summary: A 19 channel digitalEEG was performed using the international 10-20 placement system, including eye leads and EKG leads. Duration: 24 minutes Findings: The patient is intubated and on versed 8 mg/hr. The background shows diffuse medium amplitude 6-7 hz theta present over both hemispheres. No lateralizing features or epileptiform activity are seen. Photic stimulation yields a symmetric driving response. HVN is not performed. NO electrographic seizures are seen. Video: available Technical quality: good Rhythm strip:regular, 60 bpm SUMMARY: Mild generalized slow No epileptiform activity is present Diffuse cerebral dysfunction of mild degree, most commonly seen due to toxic/metabolic or hypoxemiccause No evidence for epilepsy is seen This report is transcribed using the [employer] dictation system. CT Angiogram Chest Pulmonary Embolism Result Date: 01/26/2025 CT ABDOMEN PELVIS W CONTRAST, CT ANGIOGRAM CHEST PULMONARY EMBOLISM Date of Exam: 01/26/2025 1:00 PM EDT Indication: ams. Comparison: None available. Technique: CTA of the chest and CT of the abdomen and pelvis were performed after the uneventful intravenous administration of 100 mL Isovue-370. Recons tructed coronal and sagittal images were also obtained. In addition, a 3-D volume rendered image was created for interpretation. Automated exposure control and iterative reconstruction methods were used. Findings: Motion artifact as well as artifact related to patient's arms at sides. CHEST Within the confines of artifact, no distinct pulmonary arterial filling defect to suggest pulmonary embolism. Normal caliber thoracic aorta. Heart appears mildly enlarged. No pericardial effusion. No mediastinal mass. No pathologically enlarged lymph nodes. No chest wall abnormality. No acute or suspiciousosseous lesion. Endotracheal tube tip terminates around 1.5 cm above the thor. Multifocal consolidative and linear airspace disease, some of which is enhancing, likely combination of pneumonia and atelectasis, most pronounced within the right upper lung where there is also areas of groundglass attenuation. No pleural effusion. No pneumothorax. ABDOMEN/PELVIS Morphologic changes of cirrhosis with nodular/lobulated contour of the liver. Gallbladder is unremarkable. No biliary ductal dilatation.No findings of acute pancreatitis. Spleen is at upper limits of normal size. No adrenal nodule. Kidneys are symmetric in size and enhancement without hydronephrosis. Urinary bladder and pelvic reproductive organs are unremarkable. No bowel obstruction. No free air. No free fluid or organized fluid collection. No pathologically enlarged lymph nodes. No abdominal aortic aneurysm. Mild atherosclerosis. Postsurgical changes of ventral hernia repair. Severe degenerative changes of the left hip. No acute or suspicious osseous abnormality. Impression: Chest: - Within the confines of artifact, no convincing evidence of pulmonary embolism.- Multifocal consolidative and linear airspace disease, most pronounced within the right upper lungwhere there is also areas of groundglass attenuation, suspected to be a combination of pneumonia and atelectasis. - Endotracheal tube in place. Abdomen/pelvis: - Within the confines of artifact, no acute findings. - Morphologic changes of cirrhosis without ascites. - Additional chronic/ancillary findings as above. Electronically Signed: Cj Melendrez MD 01/26/2025 2:17 PM EDT Workstation ID: [id number] CT Abdomen Pelvis With Contrast Result Date: 01/26/2025 CT ABDOMEN PELVIS W CONTRAST, CT ANGIOGRAM CHEST PULMONARY EMBOLISM Date of Exam: 01/26/2025 1:00 PM EDT Indication: ams. Comparison: None available. Technique: CTA of the chest and CT of the abdomen and pelvis were performed after the uneventful intravenous administration of 100 mL Isovue-370. Recons tructed coronal and sagittal images were also obtained. In addition, a 3-D volume rendered image was created for interpretation. Automated exposure control and iterative reconstruction methods were used. Findings: Motion artifact as well as artifact related to patient's arms at sides. CHEST Within the confines of artifact, no distinct pulmonary arterial filling defect to suggest pulmonary embolism. Normal caliber thoracic aorta. Heart appears mildly enlarged. No pericardial effusion. No mediastinal mass. No pathologically enlarged lymph nodes. No chest wall abnormality. No acute or suspiciousosseous lesion. Endotracheal tube tip terminates around 1.5 cm above the thor. Multifocal consolidative and linear airspace disease, some of which is enhancing, likely combination of pneumonia and atelectasis, most pronounced within the right upper lung where there is also areas of groundglass attenuation. No pleural effusion. No pneumothorax. ABDOMEN/PELVIS Morphologic changes of cirrhosis with nodular/lobulated contour of the liver. Gallbladder is unremarkable. No biliary ductal dilatation.No findings of acute pancreatitis. Spleen is at upper limits of normal size. No adrenal nodule. Kidneys are symmetric in size and enhancement without hydronephrosis. Urinary bladder and pelvic reproductive organs are unremarkable. No bowel obstruction. No free air. No free fluid or organized fluid collection. No pathologically enlarged lymph nodes. No abdominal aortic aneurysm. Mild atherosclerosis. Postsurgical changes of ventral hernia repair. Severe degenerative changes of the left hip. No acute or suspicious osseous abnormality. Impression: Chest: - Within the confines of artifact, no convincing evidence of pulmonary embolism.- Multifocal consolidative and linear airspace disease, most pronounced within the right upper lungwhere there is also areas of groundglass attenuation, suspected to be a combination of pneumonia and atelectasis. - Endotracheal tube in place. Abdomen/pelvis: - Within the confines of artifact, no acute findings. - Morphologic changes of cirrhosis without ascites. - Additional chronic/ancillary findings as above. Electronically Signed: Cj Melendrez MD 01/26/2025 2:17 PM EDT Workstation ID: [id number] CT Angiogram Head w AI Analysis of LVO Result Date: 01/26/2025 CT CEREBRAL PERFUSION W WO CONTRAST, CT ANGIOGRAM NECK, CT ANGIOGRAM HEAD W AI ANALYSIS OF LVO Dateof Exam: 01/26/2025 1:11 PM EDT Indication: unresponsive. Comparison: Concurrent noncontrast head CT Technique: Axial CT images of the brain were obtained prior to and after the administration of 115 mL Isovue-370. Core blood volume, core blood flow, mean transit time, and Tmax images were obtained utilizing the Rapid software protocol. A limited CT angiogram of the head was also performed to measure the blood vessel density. CTA of the head and neck was performed after the uneventful intravenousadministration of above contrast. Reconstructed coronal and sagittal images were also obtained. In a ddition, a 3-D volume rendered image was created for interpretation. Automated exposure control anditerative reconstruction methods were used. The radiation dose reduction device was turned on for each scan per the ALARA (As Low as Reasonably Achievable) protocol. Findings: CT cerebral perfusion: Normal, symmetric cerebral perfusion without evidence of core infarct or ischemic tissue at risk. CTA head and neck: No abrupt cut off/large vessel occlusion, flow- limiting stenosis, dissection, or aneurysm in the head or neck. The cerebral veins and dural venous sinuses appear grossly patent. Thereis mild atherosclerosis at the carotid bifurcations without flow-limiting or significant stenosis. Extravascular findings: Consolidation of the right upper lobe. Endotracheal tube terminates in the distal trachea. Normal thyroid. There is paranasal sinus disease. The patient is edentulous. No acuteor suspicious bony findings. Impression: Normal cerebral perfusion without evidence of core infarct or ischemic tissue at risk. No abrupt cut off/large vessel occlusion, flow-limiting stenosis, dissection, or aneurysm in the head or neck. Consolidation of the right upper lobe. CTA chest exam for complete details. Please refer to dedicated Electronically Signed: Ramin Dow MD 01/26/2025 1:57 PM EDT Workstation ID: [id number] CT CEREBRAL PERFUSION WITH & WITHOUT CONTRAST Result Date: 01/26/2025 CT CEREBRAL PERFUSION W WO CONTRAST, CT ANGIOGRAM NECK, CT ANGIOGRAM HEAD W AI ANALYSIS OF LVO Dateof Exam: 01/26/2025 1:11 PM EDT Indication: unresponsive. Comparison: Concurrent noncontrast head CT Technique: Axial CT images of the brain were obtained prior to and after the administration of 115 mL Isovue-370. Core blood volume, core blood flow, mean transit time, and Tmax images were obtained utilizing the Rapid software protocol. A limited CT angiogram of the head was also performed to measure the blood vessel density. CTA of the head and neck was performed after the uneventful intravenousadministration of above contrast. Reconstructed coronal and sagittal images were also obtained. In a ddition, a 3-D volume rendered image was created for interpretation. Automated exposure control anditerative reconstruction methods were used. The radiation dose reduction device was turned on for each scan per the ALARA (As Low as Reasonably Achievable) protocol. Findings: CT cerebral perfusion: Normal, symmetric cerebral perfusion without evidence of core infarct or ischemic tissue at risk. CTA head and neck: No abrupt cut off/large vessel occlusion, flow- limiting stenosis, dissection, or aneurysm in the head or neck. The cerebral veins and dural venous sinuses appear grossly patent. Thereis mild atherosclerosis at the carotid bifurcations without flow-limiting or significant stenosis. Extravascular findings: Consolidation of the right upper lobe. Endotracheal tube terminates in the distal trachea. Normal thyroid. There is paranasal sinus disease. The patient is edentulous. No acuteor suspicious bony findings. Impression: Normal cerebral perfusion without evidence of core infarct or ischemic tissue at risk. No abrupt cut off/large vessel occlusion, flow-limiting stenosis, dissection, or aneurysm in the head or neck. Consolidation of the right upper lobe. CTA chest exam for complete details. Please refer to dedicated Electronically Signed: Ramin Dow MD 01/26/2025 1:57 PM EDT Workstation ID: [id number] CT Angiogram Neck Result Date: 01/26/2025 CT CEREBRAL PERFUSION W WO CONTRAST, CT ANGIOGRAM NECK, CT ANGIOGRAM HEAD W AI ANALYSIS OF LVO Dateof Exam: 01/26/2025 1:11 PM EDT Indication: unresponsive. Comparison: Concurrent noncontrast head CT Technique: Axial CT images of the brain were obtained prior to and after the administration of 115 mL Isovue-370. Core blood volume, core blood flow, mean transit time, and Tmax images were obtained utilizing the Rapid software protocol. A limited CT angiogram of the head was also performed to measure the blood vessel density. CTA of the head and neck was performed after the uneventful intravenousadministration of above contrast. Reconstructed coronal and sagittal images were also obtained. In a ddition, a 3-D volume rendered image was created for interpretation. Automated exposure control anditerative reconstruction methods were used. The radiation dose reduction device was turned on for each scan per the ALARA (As Low as Reasonably Achievable) protocol. Findings: CT cerebral perfusion: Normal, symmetric cerebral perfusion without evidence of core infarct or ischemic tissue at risk. CTA head and neck: No abrupt cut off/large vessel occlusion, flow- limiting stenosis, dissection, or aneurysm in the head or neck. The cerebral veins and dural venous sinuses appear grossly patent. Thereis mild atherosclerosis at the carotid bifurcations without flow-limiting or significant stenosis. Extravascular findings: Consolidation of the right upper lobe. Endotracheal tube terminates in the distal trachea. Normal thyroid. There is paranasal sinus disease. The patient is edentulous. No acuteor suspicious bony findings. Impression: Normal cerebral perfusion without evidence of core infarct or ischemic tissue at risk. No abrupt cut off/large vessel occlusion, flow-limiting stenosis, dissection, or aneurysm in the head or neck. Consolidation of the right upper lobe. CTA chest exam for complete details. Please refer to dedicated Electronically Signed: Ramin Dow MD 01/26/2025 1:57 PM EDT Workstation ID: [id number] CT Head Without Contrast Result Date: 01/26/2025 CT HEAD WO CONTRAST Date of Exam: 01/26/2025 12:59 PM EDT Indication: ams. Comparison: None available. Technique: Axial CT images were obtained of the head without contrast administration. Automated exposure control and iterative construction methods were used. Findings: Motion artifact limits the exam There is no evidence of hemorrhage. There is no mass effect or midline shift. Mild involutional changes. There is no extracerebral collection. Ventricles are normal in size and configuration for patient's stated age. Posterior fossa is within normal limits. Calvarium and skull base appear intact.Small air-fluid levels in the bilateral maxillary and ethmoid sinuses. The mastoids are well-aerated. Visualized orbits are unremarkable. Endotracheal tube is seen Impression: 1.No acute intracranial abnormality identified. 2.Mild involutional changes. 3.Small air-fluid levels in the bilateral maxillary and ethmoid sinuses. Endotracheal tube is seen. Electronically Signed: Alexandru Campuzano MD 01/26/2025 1:08 PM EDT Workstation ID: [id number] XR Chest 1 View Result Date: 01/26/2025 XR CHEST 1 VW Date of Exam: 01/26/2025 11:38 AM EDT Indication: Weak/Dizzy/AMS triage protocol Comparison: None available. Findings: Endotracheal tube tip is 1.5 cm above the thor. Borderline enlarged cardiomediastinal silhouette. Scattered subsegmental atelectasis/scarring. No lobar consolidation.No pleural effusion. No pneumothorax. Osseous structures are typical in appearance for age. Impression: Endotracheal tube tip is 1.5 cm above the thor. Electronically Signed: Cj Melendrez MD 01/26/2025 12:31 PM EDT Workstation ID: [id number] Results for orders placed during the hospital encounter of 01/26/25 Adult Transthoracic Echo Complete W/ Cont if Necessary Per Protocol (With Agitated Saline) 01/27/2025 7:13 AM Interpretation Summary ??? Technically difficult/limited study. ??? Left ventricular systolic function is normal. Estimated left ventricular EF = 65% ??? Left ventricular wall thickness is consistent with mild concentric hypertrophy. ??? Left ventricular diastolic function was normal. ??? Aortic sclerosis without significant stenosis or regurgitation. ??? Trace mitral regurgitation. ??? Saline test results are negative. 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 Continue These Medications Instructions Start Date aspirin 81 MG EC tablet 81 mg, Nightly atorvastatin 40 MG tablet Commonly known as: LIPITOR 40 mg, Nightly carvedilol 6.25 MG tablet Commonly known as: COREG 6.25 mg, 2 Times Daily Cholecalciferol 25 MCG (1000 UT) capsule 1,000 Units, Daily clopidogrel 75 MG tablet Commonly known as: PLAVIX 75 mg, Every Morning empagliflozin 25 MG tablet tablet Commonly known as: JARDIANCE 25 mg, Daily furosemide 40 MG tablet Commonly known as: LASIX 80 mg, Daily metFORMIN ER 500 MG 24 hr tablet Commonly known as: GLUCOPHAGE-XR 500 mg, 2 Times Daily With Meals multivitamin tablet tablet 1 tablet, Daily Stop These Medications isosorbide mononitrate 30 MG 24 hr tablet Commonly known as: IMDUR meloxicam 7.5 MG tablet Commonly known as: MOBIC No Known Allergies Discharge Disposition: Home or Self Care Diet: Hospital:No active diet order Activity: Restrictions or Other Recommendations: CODE STATUS: Code Status and Medical Interventions: CPR (Attempt to Resuscitate); Full Support Ordered at: 01/26/25 1502 Code Status (Patient has no pulse and is not breathing): CPR (Attempt to Resuscitate) Medical Interventions (Patient has pulse or is breathing): Full Support No future appointments. Additional Instructions for the Follow-ups that You Need to Schedule Ambulatory Referral to Home Health As directed Face to Face Visit Date: 02/02/2025 Follow-up provider for Plan of Care?: I treated the patient in an acute care facility and will not continue treatment after discharge. Follow-up provider: ERNESTO WATKINS [[id number]] Reason/Clinical Findings: pneumonia Describe mobility limitations that make leaving home difficult: use of rolling walker Nursing/Therapeutic Services Requested: [facility] Occupational Therapy longterm orders: Medication education PT orders: Strengthening Occupational orders: Strengthening Frequency: Other (2-3 times a week) Discharge Follow-up with PCP As directed Currently Documented PCP: Provider, No Known PCP Phone Number: None Follow Up Details: 1 week Mario Miranda MD 02/03/25 Time Spent on Discharge: I spent 40 minutes on this discharge activity which included: [id number] with the patient, reviewing the data in the system, coordination of the care with the nursing staff as well as consultants, documentation, and entering orders. * Ronal Noriega MS [facility] - 01/31/2025 3:34 PM EDT Images from the original note were not included. Acute Care - Speech Language Pathology Swallow Treatment Note/Discharge [facility] Patient Name: Charles Gardner : 1955 Today's Date: 01/31/2025 Admit Date: 01/26/2025 Visit Dx: ICD-10-CM ICD-9-CM 1. Altered mental status, unspecified altered mental status type R41.82 780.97 2. Acute encephalopathy G93.40 348.30 3. Acute respiratory failure, unspecified whether with hypoxia or hypercapnia J96.00 518.81 4. Dysphagia, unspecified type R13.10 787.20 Patient Active Problem List Diagnosis Asymptomatic stenosis of right vertebral artery Hyperlipidemia Essential hypertension Type 2 diabetes mellitus Obesity, morbid, BMI 40.0-49.9 Hypophosphatemia Encephalopathy, metabolic Past Medical History: Diagnosis Date Hyperlipidemia 10/16/2017 Hypertension Stroke Type 2 diabetes mellitus 01/26/2025 Past Surgical History: Procedure Laterality Date CARDIAC CATHETERIZATION 2012 HERNIA REPAIR 1985 & 1989 abdominal INTERVENTIONAL RADIOLOGY PROCEDURE Bilateral 06/14/2021 Procedure: Carotid Cerebral Angiogram; Surgeon: Satinder Vazquez MD; Location: [facility]; Service: Interventional Radiology; Laterality: Bilateral; TUMOR REMOVAL Left FATTY TUMOR REMOVED FROM L SHOULDER TRAY ROOM WORKER Recommendation and Plan TRAY ROOM WORKER Diet Recommendation: regular textures, thin liquids (01/31/25 1500) Monitor for Signs of Aspiration: yes, notify TRAY ROOM WORKER if any concerns (01/31/25 1500) Recommended Diagnostics: No further TRAY ROOM WORKER services recommended (01/31/25 1500) Anticipated Discharge Disposition (TRAY ROOM WORKER): No further TRAY ROOM WORKER services warranted (01/31/25 1500) Daily Summary of Progress (TRAY ROOM WORKER): prepare for discharge (01/31/25 1500) Anticipated Discharge Disposition (TRAY ROOM WORKER): No further TRAY ROOM WORKER services warranted (01/31/25 1500) Treatment Assessment (TRAY ROOM WORKER): no clinical signs of, aspiration, oral dysphagia, pharyngeal dysphagia (01/31/25 1500) Plan for Continued Treatment (TRAY ROOM WORKER): treatment no longer indicated as all goals met (01/31/25 1500) Progress: improving (01/31/25 1534) SWALLOW EVALUATION (Last 72 Hours) TRAY ROOM WORKER Adult Swallow Evaluation Row Name 01/31/25 1500 01/29/25 1010 Rehab Evaluation Document Type discharge treatment -RS re-evaluation -MM Subjective Information no complaints -RS no complaints -MM Patient Observations cooperative;agree to therapy;alert -RS alert;cooperative -MM Patient/Family/Caregiver Comments/Observations Spouse present -RS spouse present -MM Patient Effort excellent -RS good -MM Symptoms Noted During/After Treatment none -RS none -MM Oral Care oral rinse provided -RS -- General Information Patient Profile Reviewed yes -RS yes -MM Pertinent History Of Current Problem See previous TRAY ROOM WORKER notes -RS See initial eval. -MM Current Method of Nutrition -- NPO -MM Precautions/Limitations, Vision -- WFL;for purposes of eval -MM Precautions/Limitations, Hearing -- WFL;for purposes of eval -MM Prior Level of Function-Communication -- WFL;other (see comments) per family -MM Prior Level of Function-Swallowing -- no diet consistency restrictions;other (see comments) pt reports avoided meats and raw vegetables d/t difficulty chewing -MM Plans/Goals Discussed with -- patient and family;agreed upon -MM Barriers to Rehab -- none identified -MM Pain Pretreatment Pain Rating 0/10 - no pain -RS 0/10 - no pain -MM Posttreatment Pain Rating 0/10 - no pain -RS 0/10 - no pain -MM Oral Motor Structure and Function Dentition Assessment -- edentulous -MM Secretion Management -- WNL/WFL -MM Mucosal Quality -- moist, healthy -MM Oral Musculature and Cranial Nerve Assessment Oral Motor General Assessment -- generalized oral motor weakness -MM General Eating/Swallowing Observations Respiratory Support Currently in Use -- nasal cannula -MM Eating/Swallowing Skills -- fed by TRAY ROOM WORKER -MM Positioning During Eating -- upright in bed -MM Utensils Used -- spoon;straw -MM Consistencies Trialed -- pureed;ice chips;thin liquids;regular textures -MM Clinical Swallow Eval Oral Prep Phase -- impaired -MM Oral Transit -- WFL -MM Oral Residue -- WFL -MM Pharyngeal Phase -- no overt signs/symptoms of pharyngeal impairment -MM Oral Prep Concerns Oral Prep Concerns -- prolonged mastication -MM Prolonged Mastication -- regular consistencies -MM TRAY ROOM WORKER Evaluation Clinical Impression TRAY ROOM WORKER Swallowing Diagnosis -- mild;oral dysphagia -MM Functional Impact -- risk of aspiration/pneumonia -MM Rehab Potential/Prognosis, Swallowing -- good, to achieve stated therapy goals -MM Swallow Criteria for Skilled Therapeutic Interventions Met -- demonstrates skilled criteria -MM TRAY ROOM WORKER Treatment Clinical Impressions Treatment Assessment (TRAY ROOM WORKER) no clinical signs of;aspiration;oral dysphagia;pharyngeal dysphagia -RS -- Daily Summary of Progress (TRAY ROOM WORKER) prepare for discharge -RS -- Plan for Continued Treatment (TRAY ROOM WORKER) treatment no longer indicated as all goals met -RS -- Care Plan Review care plan/treatment goals reviewed -RS -- Care Plan Review, Other Participant(s) spouse -RS -- Recommendations Therapy Frequency (Swallow) -- 5 days per week -MM Predicted Duration Therapy Intervention (Days) -- 1 week -MM TRAY ROOM WORKER Diet Recommendation regular textures;thin liquids -RS soft to chew textures;chopped;thin liquids -MM Recommended Diagnostics No further TRAY ROOM WORKER services recommended -RS -- Recommended Precautions and Strategies upright posture during/after eating;general aspiration precautions -RS upright posture during/after eating;small bites of food and sips of liquid;general aspiration precautions -MM Oral Care Recommendations Oral Care BID/PRN;Toothbrush -RS Oral Care BID/PRN;Suction toothbrush -MM TRAY ROOM WORKER Rec. for Method of Medication Administration as tolerated -RS meds whole;meds crushed;with thinliquids;with puree;as tolerated -MM Monitor for Signs of Aspiration yes;notify TRAY ROOM WORKER if any concerns -RS yes;notify TRAY ROOM WORKER if any concerns -MM Anticipated Discharge Disposition (TRAY ROOM WORKER) No further TRAY ROOM WORKER services warranted -RS inpatient rehabilitation facility -MM User Mehta (r) = Recorded By, (t) = Taken By, (c) = Cosigned By Initials Name Effective Dates RS Ronal Noriega MS [facility] 03/06/23 - MM Tania Myers MS [facility] 02/20/24 - EDUCATION The patient has been educated in the following areas: Dysphagia (Swallowing Impairment). TRAY ROOM WORKER GOALS Row Name 01/31/25 1500 01/29/25 1010 (LTG) Patient will demonstrate functional swallow for Diet Texture (Demonstrate functional swallow) regular textures -RS regular textures -MM Liquid viscosity (Demonstrate functional swallow) thin liquids -RS thin liquids -MM [place] (Demonstrate functional swallow) independently (over 90% accuracy) -RS independently (over 90% accuracy) -MM Time Frame (Demonstrate functional swallow) 1 week -RS 1 week -MM Progress/Outcomes (Demonstrate functional swallow) goal met -RS new goal -MM (STG) Patient will tolerate trials of Consistencies Trialed (Tolerate trials) soft to chew (chopped) textures;thin liquids -RS soft to chew (chopped) textures;thin liquids -MM Desired Outcome (Tolerate trials) without signs/symptoms of aspiration;with adequate oral prep/transit/clearance -RS without signs/symptoms of aspiration;with adequate oral prep/transit/clearance -MM [place] (Tolerate trials) independently (over 90% accuracy) -RS independently (over 90% accuracy) -MM Time Frame (Tolerate trials) 1 week -RS 1 week -MM Progress/Outcomes (Tolerate trials) goal met -RS new goal -MM (STG) Patient will tolerate therapeutic trials of Consistencies Trialed (Tolerate therapeutic trials) regular textures -RS regular textures -MM Desired Outcome (Tolerate therapeutic trials) without signs/symptoms of aspiration;with adequate oral prep/transit/clearance -RS without signs/symptoms of aspiration;with adequate oral prep/transit/clearance -MM [place] (Tolerate therapeutic trials) with minimal cues (75-90% accuracy) - RS with minimal cues (75-90% accuracy) -MM Time Frame (Tolerate therapeutic trials) 1 week -RS 1 week -MM Progress/Outcomes (Tolerate therapeutic trials) goal met -RS new goal -MM User Mehta (r) = Recorded By, (t) = Taken By, (c) = Cosigned By Initials Name Provider Type RS Ronal Noriega MS CCC-TRAY ROOM WORKER Speech and Language Pathologist Tania Fung MS CCC-TRAY ROOM WORKER Speech and Language Pathologist Time Calculation: Time Calculation- TRAY ROOM WORKER Row Name 01/31/25 1534 Time Calculation- TRAY ROOM WORKER TRAY ROOM WORKER Start Time 1445 -RS TRAY ROOM WORKER Received On 01/31/25 -RS Untimed Charges [id number] Treatment Swallow Minutes 45 -RS Total Minutes Untimed Charges Total Minutes 45 -RS Total Minutes 45 -RS User Mehta (r) = Recorded By, (t) = Taken By, (c) = Cosigned By Initials Name Provider Type Ronal Ashford MS CCC-TRAY ROOM WORKER Speech and Language Pathologist Therapy Charges for Today Code Description Service Date Service Provider Modifiers Qty [id number] ST TREATMENT SWALLOW 3 01/31/2025 Ronal Noriega MS CCC-TRAY ROOM WORKER GN 1 TRAY ROOM WORKER Discharge Summary Anticipated Discharge Disposition (TRAY ROOM WORKER): No further TRAY ROOM WORKER services warranted MS YURIY WaggonerTRAY ROOM WORKER 01/31/2025 * Zandra Villanueva RN - 01/31/2025 2:13 PM EDT Images from the original note were not included. Case Management [phone] Charles Gardner (69 y.o. Male) Date of 1955 Social Security Number [id number] Address [address] [place] [id number] [place]astaf[place] None Marital Status Admission Date 01/26/2025 Admission Type Emergency Admitting Provider Nahun Baca MD Attending Provider Heron Abdul MD Department, Room/Bed [facility] 3E, S349/1 Discharge Date Discharge Disposition Discharge Destination Attending Provider: Heron Abdul MD Allergies: No Known Allergies Isolation: None Infection: None Code Status: CPR Ht: 182.9 cm (72.01 ) Wt: 152 kg (335 lb 1.6 oz) Admission Cmt: None Principal Problem: Altered mental status [R41.82] Active Insurance as of 01/26/2025 Primary Coverage Payor Plan Insurance Group Employer/Plan Group [employer] MEDICARE REPLACEMENT AN[employer]M MEDICARE ADVANTAGE HMO [id number] Payor Plan Address Payor Plan Phone Number Payor Plan Fax Number Effective Dates [address] 06/23/2024 - None Entered [facility] [address] Subscriber Name Subscriber Date Member ID CHARLES GARDNER 1955 [id number] Emergency Contacts 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 male who was in his primary care physician's office, Dr. Huynh, and had a sudden change in condition. He was there for a checkup and blood draw. I have interviewed his and niece and they were present. They said he suddenly complained of nausea and diaphoresis and had a rapid decrease in mental status. He was brought to the ER and had a GCS of 3 and was intubated. He has a past medical history significant for hypertension, type 2 diabetes mellitus, and dyslipidemia. He had what his family described as a pin stroke several years ago which caused numbness but no loss of consciousness. A review of his records indicates that he had a cerebral angiogram here 2020 which revealed some nonhemodynamically significant right vertebral artery disease Skylar assume this was an workup in response to that. Workup in the ER so far reveals a negative urinalysis, negative urine drug screen, normal troponin,negative respiratory panel, and generally unremarkable labs. He did not respond to Narcan. He is onno sedating medications at home according to his . His medication list includes aspirin and Plavix but no sedating medications. Imaging consist of a standard CT of the head as well as angiogram and perfusion scan which are all normal. The chest CT reveals some infiltrate and linear changes in the right upper lobe consistent with pneumonia/atelectasis. There are cirrhotic changes in the liver. There is no pulmonary embolism. History Past Medical History: Diagnosis Date Hyperlipidemia 10/16/2017 Hypertension Stroke Type 2 diabetes mellitus 01/26/2025 Past Surgical History: Procedure Laterality Date CARDIAC CATHETERIZATION 2011 HERNIA REPAIR 1985 & 1989 abdominal INTERVENTIONAL RADIOLOGY PROCEDURE Bilateral 06/14/2021 Procedure: Carotid Cerebral Angiogram; Surgeon: Satinder Vazquez MD; Location: [facility]; Service: Interventional Radiology; Laterality: Bilateral; TUMOR REMOVAL Left FATTY TUMOR REMOVED FROM L SHOULDER No family history on file. Social History Tobacco Use Smoking status: Former Smokeless tobacco: Former Tobacco comments: QUIT SMOKING IN 1981; QUIT CHEWING IN SPRING 2020 Substance Use Topics Alcohol use: Never Drug use: Defer Review of Systems Review of systems could not be obtained due to patient nonverbal. patient intubated. Objective Vital Signs Temp: [97.5 ??F (36.4 ??C)] 97.5 ??F (36.4 ??C) Heart Rate: [61-82] 73 Resp: [10] 10 BP: (138-204)/(74-116) 141/81 FiO2 (%): [60 %-100 %] 60 % Physical Exam: Objective: General Appearance: Ill-appearing. Vital signs: (most recent): Blood pressure 141/81, pulse 73, temperature 97.5 ??F (36.4 ??C), temperature source Axillary, resp. rate 10, height 182.9 cm (72.01 ), weight (!) 150 kg (330 lb), SpO2 96%. HEENT: (Oral ET tube NG tube) Lungs: No rales, wheezes or rhonchi. Heart: Normal rate. Regular rhythm. S1 normal and S2 normal. No murmur, gallop or friction rub. Chest: Symmetric chest wall expansion. Abdomen: Abdomen is soft and non-distended. Bowel sounds are normal. There is no abdominal tenderness. There is no mass. There is no splenomegaly. There is no hepatomegaly. Extremities: There is no deformity or dependent edema. Neurological: GCS score is 3. Pupils: Pupils are equal, round, and reactive to light. Skin: Warm and dry. Results Review: I reviewed the patient's new clinical results. I reviewed the patient's new imaging results and agree with the interpretation. I reviewed the patient's other test results and agree with the interpretation I personally viewed and interpreted the patient's EKG/Telemetry data Assessment & Plan Assessment: Active Hospital Problems Diagnosis Essential hypertension Type 2 diabetes mellitus Obesity, morbid, BMI 40.0-49.9 Hyperlipidemia 69-year-old male with the acute sudden onset of depressed mental status. He had a GCS of 3 on arrival to our ER. He had no unusual symptoms prior to the episode and this was all witnessed by his wifeand staff at the medical clinic where he was for a routine checkup and blood draw. There is no evidence of sedating medications and he has no history of taking these. Imaging of the head is absolutely normal including perfusion and angiography. He does have some infiltrate in his right upper lobe but this may be a secondary process due to aspiration related to his altered mental status. Plan: Neuro ICU admission ABG and adjust ventilator for support Avoid sedatives MRI brain TTE with bubble Frequent neurochecks EEG Maintain blood pressure within standard parameters Fingerstick blood glucose and sliding scale insulin Empiric Zosyn due to apparent aspiration though this could probably be rapidly de-escalated if no ongoing infiltrates Further recommendations per neurology stroke service I discussed the patients findings and my recommendations with family, nursing staff, and Dr Ocampo. Critical Care time spent in direct patient care: 50 minutes (excluding procedure time, if applicable) including high complexity decision making to assess, manipulate, and support vital organ system failure in this individual who has impairment of one or more vital organ systems such that there is ahigh probability of imminent or life threatening deterioration in the patient???s condition. Nahun Baca MD Pulmonary and Critical Care Medicine 01/26/25 14:41 EDT 1452 Physical Therapy Notes (most recent note) Anna Walsh, PT at 01/29/25 1029 Version 1 of 1 Patient Name: Charles Gardner : 1955 Today's Date: 01/29/2025 Admit Date: 01/26/2025 Visit Dx: ICD-10-CM ICD-9-CM 1. Altered mental status, unspecified altered mental status type R41.82 780.97 2. Acute encephalopathy G93.40 348.30 3. Acute respiratory failure, unspecified whether with hypoxia or hypercapnia J96.00 518.81 4. Dysphagia, unspecified type R13.10 787.20 Patient Active Problem List Diagnosis Asymptomatic stenosis of right vertebral artery Hyperlipidemia Essential hypertension Type 2 diabetes mellitus Obesity, morbid, BMI 40.0-49.9 Altered mental status Past Medical History: Diagnosis Date Hyperlipidemia 10/16/2017 Hypertension Stroke Type 2 diabetes mellitus 01/26/2025 Past Surgical History: Procedure Laterality Date CARDIAC CATHETERIZATION 2011 HERNIA REPAIR 1985 & 1989 abdominal INTERVENTIONAL RADIOLOGY PROCEDURE Bilateral 06/14/2021 Procedure: Carotid Cerebral Angiogram; Surgeon: Satinder Vazquez MD; Location: [facility]; Service: Interventional Radiology; Laterality: Bilateral; TUMOR REMOVAL Left FATTY TUMOR REMOVED FROM L SHOULDER General Information Row Name 01/29/25 1342 Physical Therapy Time and Intention Document Type evaluation -LS Mode of Treatment physical therapy -LS Row Name 01/29/25 1342 General Information Patient Profile Reviewed yes -LS Prior Level of Function independent:;all household mobility;ADL's PRN use of quad cane due to knee pain L >R -LS Existing Precautions/Restrictions fall;oxygen therapy device and L/min -LS Barriers to Rehab medically complex;previous functional deficit -LS Row Name 01/29/25 1342 Living Environment Current Living Arrangements home -LS People in Home spouse -LS Row Name 01/29/25 1342 Home Main Entrance Number of Stairs, Main Entrance one -LS Stair Railings, Main Entrance none -LS Row Name 01/29/25 1342 Stairs Within Home, Primary Number of Stairs, Within Home, Primary none -LS Row Name 01/29/25 1342 Cognition Orientation Status (Cognition) oriented x 3 -LS Row Name 01/29/25 1342 Safety Issues/Impairments Affecting Functional Mobility Safety Issues Affecting Function (Mobility) safety precautions follow- through/compliance;safety precaution awareness -LS Impairments Affecting Function (Mobility) balance;coordination;endurance/activity tolerance;shortness of breath;strength;postural/trunk control -LS User Mehta (r) = Recorded By, (t) = Taken By, (c) = Cosigned By Initials Name Provider Type Anna Kemp, PT Physical Therapist Mobility Row Name 01/29/25 1344 Bed Mobility Supine-Sit [place] (Bed Mobility) moderate assist (50% patient effort);2 person assist;verbal cues -LS Assistive Device (Bed Mobility) bed rails;head of bed elevated -LS Row Name 01/29/25 1344 Sit-Stand Transfer Sit-Stand [place] (Transfers) minimum assist (75% patient effort);2 person assist;verbal cues -LS Assistive Device (Sit-Stand Transfers) walker, front-wheeled -LS Row Name 01/29/25 1344 Gait/Stairs (Locomotion) [place] Level (Gait) minimum assist (75% patient effort);2 person assist;verbal cues -LS Assistive Device (Gait) walker, front-wheeled -LS Patient was able to Ambulate yes -LS Distance in Feet (Gait) 108 -LS Deviations/Abnormal Patterns (Gait) bilateral deviations;gait speed decreased;stride length decreased -LS Bilateral Gait Deviations forward flexed posture;heel strike decreased -LS Comment, (Gait/Stairs) 2 brief standing rest breaks due to fatigue and SOA. Cues for upright posture and keeping RW close to body. -LS User Mehta (r) = Recorded By, (t) = Taken By, (c) = Cosigned By Initials Name Provider Type Anna Kemp, PT Physical Therapist Obj/Interventions Row Name 01/29/25 1348 Range of Motion Comprehensive General Range of Motion bilateral lower extremity ROM WFL -LS Row Name 01/29/25 1348 Strength Comprehensive (MMT) General Manual Muscle Testing (MMT) Assessment lower extremity strength deficits identified -LS Comment, General Manual Muscle Testing (MMT) Assessment BLE grossly 3+/5 -LS Row Name 01/29/25 1348 Balance Balance Assessment sitting static balance;standing static balance -LS Static Sitting Balance contact guard -LS Position, Sitting Balance sitting edge of bed -LS Static Standing Balance minimal assist -LS Position/Device Used, Standing Balance supported;walker, front-wheeled -LS Row Name 01/29/25 1348 Sensory Assessment (Somatosensory) Sensory Assessment (Somatosensory) LE sensation intact - User Mehta (r) = Recorded By, (t) = Taken By, (c) = Cosigned By Initials Name Provider Type LS Anna Walsh, PT Physical Therapist Goals/Plan Row Name 01/29/25 134 Bed Mobility Goal 1 (PT) Activity/Assistive Device (Bed Mobility Goal 1, PT) sit to supine/supine to sit -LS [place] Level/Cues Needed (Bed Mobility Goal 1, PT) supervision required -LS Time Frame (Bed Mobility Goal 1, PT) short term goal (STG);5 days - Row Name 01/29/25 134 Transfer Goal 1 (PT) Activity/Assistive Device (Transfer Goal 1, PT) [id number] -LS [place] Level/Cues Needed (Transfer Goal 1, PT) supervision required -LS Time Frame (Transfer Goal 1, PT) extermination inspector goal (LTG);10 days - Row Name 01/29/25 134 Gait Training Goal 1 (PT) Activity/Assistive Device (Gait Training Goal 1, PT) gait (walking locomotion);walker, rolling -LS [place] Level (Gait Training Goal 1, PT) supervision required -LS Distance (Gait Training Goal 1, PT) 200 -LS Time Frame (Gait Training Goal 1, PT) [facility] goal (LTG);10 days - Row Name 01/29/25 134 Therapy Assessment/Plan (PT) Planned Therapy Interventions (PT) balance training;bed mobility training;gait training;home exercise program;patient/family education;strengthening;stair training;transfer training -LS User Mehta (r) = Recorded By, (t) = Taken By, (c) = Cosigned By Initials Name Provider Type Anna Kemp, PT Physical Therapist Clinical Impression Row Name 01/29/25 1346 Pain Pretreatment Pain Rating 0/10 - no pain -LS Posttreatment Pain Rating 0/10 - no pain -LS Row Name 01/29/25 1346 Plan of Care Review Plan of Care Reviewed With patient;spouse - Progress no change -LS Outcome Evaluation PT initial evaluation completed. Pt demonstrates generalized weakness and decreased indep re: functional mobility warranting further skilled PT services to promote PLOF. Limited today by fatigue and SOA but able to ambulate 108 ft with RW, min x2 A. Recommend IPR at d/c based upon current functional status. Educated pt/spouse re: PT POC. - Row Name 01/29/25 1346 Therapy Assessment/Plan (PT) Patient/Family Therapy Goals Statement (PT) return to PLOF -LS Rehab Potential (PT) good -LS Criteria for Skilled Interventions Met (PT) yes;skilled treatment is necessary -LS Therapy Frequency (PT) daily -LS Predicted Duration of Therapy Intervention (PT) 10 days - Row Name 01/29/25 1346 Vital Signs Pre Systolic BP Rehab 158 -LS Pre Treatment Diastolic BP 75 -LS Post Systolic BP Rehab 127 -LS Post Treatment Diastolic BP 66 -LS Pretreatment Heart Rate (beats/min) 93 -LS Posttreatment Heart Rate (beats/min) 92 -LS Pre SpO2 (%) 94 -LS O2 Delivery Pre Treatment nasal cannula -LS O2 Delivery Intra Treatment nasal cannula -LS Post SpO2 (%) 94 -LS O2 Delivery Post Treatment nasal cannula -LS Pre Patient Position Supine -LS Intra Patient Position Standing -LS Post Patient Position Sitting -LS [facility] Name 01/29/25 1346 Positioning and Restraints Pre-Treatment Position in bed -LS Post Treatment Position chair -LS In Chair notified nsg;reclined;call light within reach;encouraged to call for assist;exit alarm on;on mechanical lift sling;waffle cushion;legs elevated;heels elevated;with family/caregiver - User Mehta (r) = Recorded By, (t) = Taken By, (c) = Cosigned By Initials Name Provider Type Anan Kemp, PT Physical Therapist Outcome Measures Row Name 01/29/25 1350 01/29/25 0800 How much help from another person do you currently need... Turning from your back to your side while in flat bed without using bedrails? 3 -LS 3 -AL Moving from lying on back to sitting on the side of a flat bed without bedrails? 2 -LS 2 -AL Moving to and from a bed to a chair (including a wheelchair)? 3 -LS 2 -AL Standing up from a chair using your arms (e.g., wheelchair, bedside chair)? 3 - LS 2 -AL Climbing 3-5 steps with a railing? 1 -LS 1 -AL To walk in hospital room? 3 -LS 2 -AL AM-PAC 6 Clicks Score (PT) 15 -LS 12 -AL Row Name 01/29/25 1350 01/29/25 1317 Modified Norman Scale Pre-Stroke Modified Jalyn Scale 6 - Unable to determine (UTD) from the medical record documentation -LS 6 - Unable to determine (UTD) from the medical record documentation -KF Modified Norman Scale 3 - Moderate disability. Requiring some help, but able to walk without assistance. -LS 3 - Moderate disability. Requiring some help, but able to walk without assistance. -KF Row Name 01/29/25 1317 Functional Assessment Outcome Measure Options AM-PAC 6 Clicks Daily Activity (OT);Modified Jalyn -KF User Mehta (r) = Recorded By, (t) = Taken By, (c) = Cosigned By Initials Name Provider Type Anna Kemp, PT Physical Therapist Julia Hernandez, RN Registered Nurse Lissett Bajwa OT Occupational Therapist Physical Therapy Education Title: PT OT TRAY ROOM WORKER Therapies (In Progress) Topic: Physical Therapy (In Progress) Point: Mobility training (Done) Learning Progress Summary Patient Acceptance, E,D, VU,NR by at 01/29/2025 1350 Significant Other Acceptance, E,D, VU,NR by at 01/29/2025 1350 Point: Home exercise program (Not Started) Learner Progress: Not documented in this visit. Point: Body mechanics (Done) Learning Progress Summary Patient Acceptance, E,D, VU,NR by at 01/29/2025 1350 Significant Other Acceptance, E,D, VU,NR by at 01/29/2025 1350 Point: Precautions (Done) Learning Progress Summary Patient Acceptance, E,D, VU,NR by at 01/29/2025 1350 Significant Other Acceptance, E,D, VU,NR by at 01/29/2025 1350 User Mehta Initials Effective Dates Name Provider Type Discipline 07/26/22 - Anna Walsh, PT Physical Therapist PT PT Recommendation and Plan Planned Therapy Interventions (PT): balance training, bed mobility training, gait training, home exercise program, patient/family education, strengthening, stair training, transfer training Progress: no change Outcome Evaluation: PT initial evaluation completed. Pt demonstrates generalized weakness and decreased indep re: functional mobility warranting further skilled PT services to promote PLOF. Limited today by fatigue and SOA but able to ambulate 108 ft with RW, min x2 A. Recommend IPR at d/c based upon current functional status. Educated pt/spouse re: PT POC. Time Calculation: PT Evaluation Complexity History, PT Evaluation Complexity: 3 or more personal factors and/or comorbidities Examination of Body Systems (PT Eval Complexity): total of 4 or more elements Clinical Presentation (PT Evaluation Complexity): evolving Clinical Decision Making (PT Evaluation Complexity): moderate complexity Overall Complexity (PT Evaluation Complexity): moderate complexity PT Charges Row Name 01/29/25 1351 Time Calculation Start Time 1029 -LS PT Received On 01/29/25 - PT Goal Re-Cert Due Date 02/08/25 - Timed Charges 36893 - PT Therapeutic Activity Minutes 10 -LS Untimed Charges PT Eval/Re-eval Minutes 36 -LS Total Minutes Timed Charges Total Minutes 10 -LS Untimed Charges Total Minutes 36 -LS Total Minutes 46 -LS User Mehta (r) = Recorded By, (t) = Taken By, (c) = Cosigned By Initials Name Provider Type Anna Walsh, PT Physical Therapist Therapy Charges for Today Code Description Service Date Service Provider Modifiers Qty [id number] HC PT EVAL MOD COMPLEXITY 3 01/29/2025 Anna Walsh, PT GP 1 [id number] HC PT THERAPEUTIC ACT EA 15 MIN 01/29/2025 Anna Walsh, PT GP 1 PT G-Codes Outcome Measure Options: AM-PAC 6 Clicks Daily Activity (OT), Modified Jalyn AM-PAC 6 Clicks Score (PT): 15 AM-PAC 6 Clicks Score (OT): 16 Modified Jalyn Scale: 3 - Moderate disability. Requiring some help, but able to walk without assistance. PT Discharge Summary Anticipated Discharge Disposition (PT): inpatient rehabilitation facility Anna Walsh, PT 01/29/2025 1352 Occupational Therapy Notes (most recent note) Lissett Feliz, OT at 01/29/25 1025 Patient Name: Charles Gardner : 1955 Today's Date: 01/29/2025 Admit Date: 01/26/2025 Visit Dx: ICD-10-CM ICD-9-CM 1. Altered mental status, unspecified altered mental status type R41.82 780.97 2. Acute encephalopathy G93.40 348.30 3. Acute respiratory failure, unspecified whether with hypoxia or hypercapnia J96.00 518.81 4. Dysphagia, unspecified type R13.10 787.20 Patient Active Problem List Diagnosis Asymptomatic stenosis of right vertebral artery Hyperlipidemia Essential hypertension Type 2 diabetes mellitus Obesity, morbid, BMI 40.0-49.9 Altered mental status Past Medical History: Diagnosis Date Hyperlipidemia 10/16/2017 Hypertension Stroke Type 2 diabetes mellitus 01/26/2025 Past Surgical History: Procedure Laterality Date CARDIAC CATHETERIZATION 2011 HERNIA REPAIR 1985 & 1989 abdominal INTERVENTIONAL RADIOLOGY PROCEDURE Bilateral 06/14/2021 Procedure: Carotid Cerebral Angiogram; Surgeon: Satinder Vazquez MD; Location: [facility]; Service: Interventional Radiology; Laterality: Bilateral; TUMOR REMOVAL Left FATTY TUMOR REMOVED FROM L SHOULDER General Information Row Name 01/29/25 1311 OT Time and Intention Document Type evaluation -KF Mode of Treatment occupational therapy;co-treatment -KF Row Name 01/29/25 1311 General Information Patient Profile Reviewed yes -KF Prior Level of Function independent:;all household mobility;community mobility;bed mobility;ADL's;driving Independent prior, PRN use of quad cane due to B knee pain (L>R) -KF Existing Precautions/Restrictions fall;oxygen therapy device and L/min -KF Barriers to Rehab medically complex;previous functional deficit -KF Row Name 01/29/25 1311 Occupational Profile Environmental Supports and Barriers (Occupational Profile) tub shower -KF Row Name 01/29/25 1311 Living Environment Current Living Arrangements home -KF People in Home spouse -KF Row Name 01/29/25 1311 Home Main Entrance Number of Stairs, Main Entrance one -KF Stair Railings, Main Entrance none - Row Name 01/29/25 1311 Stairs Within Home, Primary Number of Stairs, Within Home, Primary none - Row Name 01/29/25 1311 Cognition Orientation Status (Cognition) oriented x 3 - Row Name 01/29/25 131 Safety Issues/Impairments Affecting Functional Mobility Safety Issues Affecting Function (Mobility) awareness of need for assistance;insight into deficits/self-awareness;positioning of assistive device;safety precaution awareness;safety precautions follow- through/compliance;sequencing abilities - Impairments Affecting Function (Mobility) balance;coordination;endurance/activity tolerance;shortness of breath;strength;postural/trunk control - User Mehta (r) = Recorded By, (t) = Taken By, (c) = Cosigned By Initials Name Provider Type KF Lissett Feliz OT Occupational Therapist Mobility/ADL's Row Name 01/29/251311 Bed Mobility Bed Mobility supine-sit - Supine-Sit [place] (Bed Mobility) moderate assist (50% patient effort);2 person assist;verbal cues - Assistive Device (Bed Mobility) bed rails;head of bed elevated - Comment, (Bed Mobility) Increased time and effort needed. Cues for sequence with assistance given at trunk. - Row Name 01/29/251311 Transfers Transfers sit-stand transfer;stand-sit transfer -[facility] Name 01/29/251311 Sit-Stand Transfer Sit-Stand [place] (Transfers) minimum assist (75% patient effort);verbal cues - Assistive Device (Sit-Stand Transfers) walker, front-wheeled - Comment, (Sit-Stand Transfer) x2 from EOB - Row Name 01/29/251311 Stand-Sit Transfer Stand-Sit [place] (Transfers) minimum assist (75% patient effort) - Assistive Device (Stand-Sit Transfers) walker, front-wheeled - Row Name 01/29/251311 Functional Mobility Functional Mobility- Ind. Level minimum assist (75% patient effort) - Functional Mobility- Device walker, front-wheeled - Functional Mobility-Distance (Feet) -- <household distance - Functional Mobility- Comment x2 extended standing rest breaks taken during mobility due to pt complaints of SOA. SpO2 monitored and remained 90-95% on 3L NC. Frequent cues given to keep RWx close to base of support. -KF Patient was able to Ambulate yes - Row Name 01/29/25 1312 Activities of Daily Living BADL Assessment/Intervention lower body dressing - Row Name 01/29/25 1312 Lower Body Dressing Assessment/Training [place] Level (Lower Body Dressing) don;socks;dependent (less than 25% patient effort) -KF Position (Lower Body Dressing) supine -KF User Mehta (r) = Recorded By, (t) = Taken By, (c) = Cosigned By Initials Name Provider Type KF Lissett Feliz OT Occupational Therapist Obj/Interventions Row Name 01/29/25 1314 Sensory Assessment (Somatosensory) Sensory Assessment (Somatosensory) UE sensation intact - Row Name 01/29/25 1314 Vision Assessment/Intervention Visual Impairment/Limitations WFL - Row Name 01/29/25 1314 Range of Motion Comprehensive General Range of Motion bilateral upper extremity ROM WFL - Row Name 01/29/25 1314 Strength Comprehensive (MMT) General Manual Muscle Testing (MMT) Assessment upper extremity strength deficits identified -KF Comment, General Manual Muscle Testing (MMT) Assessment BUE grossly 4/5 -KF Row Name 01/29/25 1314 Motor Skills Motor Skills functional endurance -KF Functional Endurance fair, below reported baseline - Row Name 01/29/25 1314 Balance Balance Assessment sitting static balance;sitting dynamic balance;sit to stand dynamic balance;standing static balance;standing dynamic balance -KF Static Sitting Balance standby assist -KF Dynamic Sitting Balance contact guard -KF Position, Sitting Balance unsupported;sitting edge of bed -KF Sit to Stand Dynamic Balance minimal assist;1-person assist -KF Static Standing Balance minimal assist;1-person assist -KF Dynamic Standing Balance minimal assist;1-person assist -KF Position/Device Used, Standing Balance supported;walker, front-wheeled -KF Balance Interventions sitting;standing;sit to stand;supported;static;dynamic;occupation based/functional task -KF Comment, Balance No overt LOB or knee buckling -KF User Mehta (r) = Recorded By, (t) = Taken By, (c) = Cosigned By Initials Name Provider Type KF Lissett Feliz OT Occupational Therapist Goals/Plan Row Name 01/29/25 1317 Transfer Goal 1 (OT) Activity/Assistive Device (Transfer Goal 1, OT) [id number];commode -KF [place] Level/Cues Needed (Transfer Goal 1, OT) supervision required -KF Time Frame (Transfer Goal 1, OT) extermination inspector goal (LTG);10 days -KF Progress/Outcome (Transfer Goal 1, OT) new goal -KF Row Name 01/29/251316 Dressing Goal 1 (OT) Activity/Device (Dressing Goal 1, OT) upper body dressing;lower body dressing -KF [place]/Cues Needed (Dressing Goal 1, OT) standby assist -KF Time Frame (Dressing Goal 1, OT) short term goal (STG);5 days -KF Strategies/Barriers (Dressing Goal 1, OT) ADL AE PRN -KF Progress/Outcome (Dressing Goal 1, OT) new goal -KF Row Name 01/29/251316 Grooming Goal 1 (OT) Activity/Device (Grooming Goal 1, OT) hair care;oral care;wash face, hands -KF [place] (Grooming Goal 1, OT) supervision required -KF Time Frame (Grooming Goal 1, OT) extermination inspector goal (LTG);10 days -KF Strategies/Barriers (Grooming Goal 1, OT) standing sinkside -KF Progress/Outcome (Grooming Goal 1, OT) new goal -KF Row Name 01/29/251316 Therapy Assessment/Plan (OT) Planned Therapy Interventions (OT) activity tolerance training;adaptive equipment training;BADL retraining;functional balance retraining;occupation/activity based interventions;patient/caregiver educa tion/training;ROM/therapeutic exercise;strengthening exercise;transfer/mobility retraining -KF User Mehta (r) = Recorded By, (t) = Taken By, (c) = Cosigned By Initials Name Provider Type Lissett Bajwa, OT Occupational Therapist Clinical Impression Row Name 01/29/251314 Pain Assessment Pretreatment Pain Rating 0/10 - no pain -KF Posttreatment Pain Rating 0/10 - no pain -KF Row Name 01/29/25 131 Plan of Care Review Plan of Care Reviewed With patient;spouse -KF Outcome Evaluation OT evaluation completed. The pt presents below baseline with decreased activity tolerance, balance deficits, and generalized weakness warranting continued IP OT services. The pt was assisted in bed mobility with modA x2. The pt ambulated <household distance within the hallway using a RWx with Janine. x2 extended standing rest breaks taken for SOA, although SpO2 remained >90% on 3L NC. Recommend a d/c to IRF for best outcome, but will monitor pt progress closely. -KF Row Name 01/29/25 1315 Therapy Assessment/Plan (OT) Patient/Family Therapy Goal Statement (OT) Restore PLOF -KF Rehab Potential (OT) good -KF Criteria for Skilled Therapeutic Interventions Met (OT) yes;skilled treatment is necessary -KF Therapy Frequency (OT) daily -KF Predicted Duration of Therapy Intervention (OT) 10 days -KF Row Name 01/29/25 131 Therapy Plan Review/Discharge Plan (OT) Anticipated Discharge Disposition (OT) inpatient rehabilitation facility -KF Row Name 01/29/25 1315 Vital Signs Pre Systolic BP Rehab 158 -KF Pre Treatment Diastolic BP 75 -KF Post Systolic BP Rehab 127 -KF Post Treatment Diastolic BP 66 -KF Pretreatment Heart Rate (beats/min) 93 -KF Posttreatment Heart Rate (beats/min) 93 -KF Pre SpO2 (%) 93 3L -KF O2 Delivery Pre Treatment nasal cannula -KF Post SpO2 (%) 95 -KF O2 Delivery Post Treatment nasal cannula -KF Pre Patient Position Supine -KF Intra Patient Position Standing -KF Post Patient Position Sitting -KF Row Name 01/29/25 131 Positioning and Restraints Pre-Treatment Position in bed -KF Post Treatment Position chair -KF In Chair notified nsg;reclined;call light within reach;encouraged to call for assist;exit alarm on;with family/caregiver;waffle cushion;on mechanical lift sling;legs elevated -KF User Mehta (r) = Recorded By, (t) = Taken By, (c) = Cosigned By Initials Name Provider Type KF Lissett Feliz, OT Occupational Therapist Outcome Measures Row Name 01/29/25 1317 How much help from another is currently needed... Putting on and taking off regular lower body clothing? 2 -KF Bathing (including washing, rinsing, and drying) 2 -KF Toileting (which includes using toilet bed mcguire or urinal) 2 -KF Putting on and taking off regular upper body clothing 3 -KF Taking care of personal grooming (such as brushing teeth) 3 -KF Eating meals 4 -KF AM-PAC 6 Clicks Score (OT) 16 -KF Row Name 01/29/25 0800 How much help from another person do you currently need... Turning from your back to your side while in flat bed without using bedrails? 3 -AL Moving from lying on back to sitting on the side of a flat bed without bedrails? 2 -AL Moving to and from a bed to a chair (including a wheelchair)? 2 -AL Standing up from a chair using your arms (e.g., wheelchair, bedside chair)? 2 -AL Climbing 3-5 steps with a railing? 1 -AL To walk in hospital room? 2 -AL AM-PAC 6 Clicks Score (PT) 12 -AL Row Name 01/29/25 1317 Modified Jalyn Scale Pre-Stroke Modified Norman Scale 6 - Unable to determine (UTD) from the medical record documentation - Modified Norman Scale 3 - Moderate disability. Requiring some help, but able to walk without assistance. 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 Therapies (In Progress) Topic: Occupational Therapy (In Progress) Point: ADL training (Done) Learning Progress Summary Patient Acceptance, E,TB, VU,DU by at 01/29/2025 1025 Point: Precautions (Done) Learning Progress Summary Patient Acceptance, E,TB, VU,DU by at 01/29/2025 1025 Point: Body mechanics (Done) Learning Progress Summary Patient Acceptance, E,TB, VU,DU by at 01/29/2025 1025 User Mehta Initials Effective Dates Name Provider Type Discipline 01/29/23 - Lissett Feliz OT Occupational Therapist OT OT Recommendation and Plan Planned Therapy Interventions (OT): activity tolerance training, adaptive equipment training, BADL retraining, functional balance retraining, occupation/activity based interventions, patient/caregiver education/training, ROM/therapeutic exercise, strengthening exercise, transfer/mobility retraining Therapy Frequency (OT): daily Plan of Care Review Plan of Care Reviewed With: patient, spouse Outcome Evaluation: OT evaluation completed. The pt presents below baseline with decreased activitytolerance, balance deficits, and generalized weakness warranting continued IP OT services. The pt was assisted in bed mobility with modA x2. The pt ambulated <household distance within the hallwayusing a RWx with Janine. x2 extended standing rest breaks taken for SOA, although SpO2 remained >90 % on 3L NC. Recommend a d/c to IRF for best outcome, but will monitor pt progress closely. Time Calculation: Evaluation Complexity (OT) Review Occupational Profile/Medical/Therapy History Complexity: expanded/moderate complexity Assessment, Occupational Performance/Identification of Deficit Complexity: 3-5 performance deficits Clinical Decision Making Complexity (OT): detailed assessment/moderate complexity Overall Complexity of Evaluation (OT): moderate complexity Time Calculation- OT Row Name 01/29/25 1318 Time Calculation- OT OT Start Time 1025 -KF OT Received On 01/29/25 -KF OT Goal Re-Cert Due Date 02/08/25 -KF Untimed Charges OT Eval/Re-eval Minutes 47 -KF Total Minutes Untimed Charges Total Minutes 47 -KF Total Minutes 47 -KF User Mehta (r) = Recorded By, (t) = Taken By, (c) = Cosigned By Initials Name Provider Type KF Lissett Feliz OT Occupational Therapist Therapy Charges for Today Code Description Service Date Service Provider Modifiers Qty [id number] HC OT EVAL MOD COMPLEXITY 4 01/29/2025 Lissett Feliz OT GO 1 Lissett Feliz OT 01/29/2025 1319 documented in this encounter Discharge Instructions * Attachments The following attachments cannot be sent through Care Everywhere. * Levothyroxine Tablets (Mauritanian) * Pantoprazole Tablets (Mauritanian) * Guaifenesin Extended-Release Tablets (Mauritanian) documented in this encounter Medications at Time of Discharge albuterol sulfate HFA 108 (90 Base) MCG/ACT inhaler Inhale 2 puffs Every 4 (Four) Hours As Needed for Wheezing. 18 g 02/02/2025 1:18 PM EDT 02/02/2025 aspirin (aspirin) 81 MG EC tablet Take 1 tablet by mouth Every Night. atorvastatin (LIPITOR) 40 MG tablet Take 1 tablet by mouth Every Night. 04/23/2021 carvedilol (COREG) 6.25 MG tablet Take 1 tablet by mouth 2 (Two) Times a Day. 04/23/2021 Cholecalciferol 25 MCG (1000 UT) capsule Take 1 capsule by mouth Daily. clopidogrel (PLAVIX) 75 MG tablet Take 1 tablet by mouth Every Morning. empagliflozin (JARDIANCE) 25 MG tablet tablet Take 1 tablet by mouth Daily. furosemide (LASIX) 40 MG tablet Take 2 tablets by mouth Daily. levothyroxine (SYNTHROID, LEVOTHROID) 75 MCG tablet Take 1 tablet by mouth Every Morning for 30 days. 30 tablet 02/02/2025 1:18 PM EDT 02/03/2025 03/05/2025 metFORMIN ER (GLUCOPHAGE-XR) 500 MG 24 hr tablet Take 1 tablet by mouth 2 (Two) Times a Day With Meals. multivitamin (MULTI-VITAMIN DAILY PO) Take 1 tablet by mouth Daily. OTC pantoprazole (PROTONIX) 40 MG EC tablet Take 1 tablet by mouth Every Morning for 30 days. 30 tablet 02/02/2025 1:18 PM EDT 02/03/2025 03/05/2025 guaiFENesin (MUCINEX) 600 MG 12 hr tablet Take 1 tablet by mouth Every 12 (Twelve) Hours for 7 days. 14 tablet 02/02/2025 1:18 PM EDT 02/02/2025 02/09/2025 documented as of this encounter Progress Notes * Hiwot Bush RN - 02/02/2025 2:41 PM EDTSummary: Home Health Start PACC Note Home Health Referral Evaluated patient and 02/02/2025 on Home Care and services available. Patient offered choice of available HHC and agreeable to SN/PT/OT services with [facility]. Isolation Precautions: No active isolations START PATIENT REGISTRATION INFORMATION Order Information Order Signing Physician: Mario Miranda MD Service Ordered RN?: Yes Service Ordered PT?: Yes Service Ordered OT?: Yes Service Ordered ST?: No Service Ordered BELT WEAVER?: No Service Ordered OCEAN EXPORT COORDINATOR?: No Following Physician: Ernesto Huynh MD Following Physician Phone: yes Overseeing Physician: Ernesto Huynh MD (Required for Residents Only) Agreeable to Follow ? Yes Date/Time of Call 02/02/25 14:42 EDT, Spoke with: Anne Care Coordination Same Day SOC?: No Primary Care Physician: Ernesto Huynh MD Primary Care Physician Primary Care Physician Address: [address] [place], [place] [id number] [address] [place], [id number] Visit Instructions: N/A Service Discharge Location Type: Home Service Facility Name: N/A Service Floor Facility: N/A Service Room No: N/A Demographics Patient Last Name: Lucia Patient First Name: Language/Communication Barrier: no Service Address: [address] [place] [address] Service City: [place] Service State: [place] Service Zip: [address] Service Other Phone Numbers: Telephone Information: Emergency Contact: Extended Emergency Contact Information Primary Emergency Contact: MILDRED GARDNER Address: [address] [place] [id number] [facility] Mobile Relation: Spouse Admission Information Admit Date: 01/26/2025 Patient Status at Discharge: Inpatient Admitting Diagnosis: Altered mental status [R41.82] Caregiver Information Caregiver First Name: Caregiver Last Name: Caregiver Relationship to Patient: Caregiver Phone Number: Caregiver Notes: N/A [employer] List No END PATIENT REGISTRATION INFORMATION Start PACC Summary Additional Comments: END PACC Summary Discharge Date: Pending Referral Source: [facility] Signed By: Hiwot Bush RN, 02/02/2025, 14:42 EDT Date/Time: 02/02/25 14:42 EDT End PACC Note * Mario Miranda MD - 02/02/2025 8:03 AM EDT Images from the original note were not included. [facility] Medicine Services PROGRESS NOTE Patient Name: Charles Gardner : 1955 Date of Admission: 01/26/2025 Primary Care Physician: Provider, No Known Subjective Subjective CC: AMS HPI: Up in bed. Constipation better. Dyspnea better, cough/congestion resolving. Objective Objective Vital Signs: Temp: [97.8 ??F (36.6 ??C)-98.1 ??F (36.7 ??C)] 97.9 ??F (36.6 ??C) Heart Rate: [66-77] 77 Resp: [18-22] 18 BP: (124-167)/(64-92) 167/89 Flow (L/min) (Oxygen Therapy): [2] 2 Physical Exam: NAD, alert OP clear, dry MM Neck supple RRR Cough clear now, lungs grossly CTAB +BS, soft Obese JOHNSON Normal affect Family at bedside No change from 02/01 otherwise Results Reviewed: LAB RESULTS: Lab 02/01/25 0446 01/31/25 0316 01/30/25 0341 01/29/25 0357 01/28/25 1143 01/28/25 0417 01/27/25 0312 01/26/25 1353 01/26/25 1148 01/26/25 1142 WBC 6.19 5.59 2.70* 11.21* 8.00 -- < > -- -- 6.32 HEMOGLOBIN 13.2 13.4 16.0 15.7 15.5 -- < > -- -- 15.2 HEMOGLOBIN, POC -- -- -- -- -- -- -- -- < > -- HEMATOCRIT 38.3 39.1 48.8 47.9 46.4 -- < > -- -- 45.7 HEMATOCRIT POC -- -- -- -- -- -- -- -- < > -- PLATELETS 141 126* 161 174 116* -- < > -- -- 146 NEUTROS ABS 3.46 2.98 1.56* 8.15* 5.98 -- < > -- -- 3.89 IMMATURE GRANS (ABS) 0.13* 0.05 0.00 0.06* 0.04 -- < > -- -- 0.02 LYMPHS ABS 1.58 1.41 0.58* 1.81 1.14 -- < > -- -- 1.51 MONOS ABS 0.72 0.68 0.35 1.05* 0.68 -- < > -- -- 0.50 EOS ABS 0.25 0.43* 0.18 0.11 0.13 -- < > -- -- 0.35 MCV 97.2* 99.7* 103.2* 102.1* 100.7* -- < > -- -- 101.8* CRP -- -- -- -- -- 4.31* -- -- -- -- PROCALCITONIN -- -- -- -- -- -- -- -- -- 0.07 LACTATE -- -- -- -- -- -- -- -- -- 1.8 HSTROP T -- -- -- -- -- -- -- 11 -- 11 < > = values in this interval not displayed. Lab 02/01/25 0446 01/31/25 1259 01/31/25 0316 01/30/25 0341 01/29/25 0357 01/28/25 0417 01/27/25 0312 01/26/25 1148 01/26/25 1142 SODIUM 140 -- 135* 141 141 144 138 -- 138 POTASSIUM 4.0 4.4 3.6 4.3 3.9 4.0 3.9 -- 4.1 CHLORIDE 106 -- 104 107 108* 110* 105 -- 104 CO2 25.0 -- 21.1* 21.8* 18.4* 19.0* 21.0* -- 24.0 ANION GAP 9.0 -- 9.9 12.2 14.6 15.0 12.0 -- 10.0 BUN 11.2 -- 15.6 25.1* 24.2* 15.2 14.8 -- 13.3 CREATININE 0.70* -- 0.73* 0.91 0.94 0.90 0.87 < > 0.89 EGFR 101.0 -- 99.7 92.4 88.9 93.6 94.6 < > 93.9 GLUCOSE 117* -- 108* 148* 118* 124* 121* -- 120* CALCIUM 8.8 -- 8.5* 9.0 9.3 9.3 9.4 -- 9.9 MAGNESIUM 2.2 -- 2.1 2.2 2.3 2.6* 2.1 -- 2.1 PHOSPHORUS 2.7 1.7* 1.8* 2.5 3.9 4.2 3.6 < > -- HEMOGLOBIN A1C -- -- -- -- -- -- 5.51 -- -- TSH -- -- -- 1.180 -- -- -- -- 5.390* < > = values in this interval not displayed. Lab 01/28/25 0417 01/27/25 0312 01/26/25 1142 TOTAL PROTEIN 7.3 7.0 7.6 ALBUMIN 3.9 3.6 4.0 GLOBULIN 3.4 3.4 3.6 ALT (SGPT) 28 33 35 AST (SGOT) 31 34 34 BILIRUBIN 1.0 0.8 0.6 ALK PHOS 86 81 86 Lab 01/26/25 1353 01/26/25 1142 PROBNP -- 93.0 HSTROP T 11 11 Lab 01/27/25 0312 CHOLESTEROL 137 LDL CHOL 69 HDL CHOL 49 TRIGLYCERIDES 104 Lab 01/28/25 0333 01/27/25 1744 01/27/25 0329 PH, ARTERIAL 7.430 7.459* 7.435 PCO2, ARTERIAL 31.7* 32.0* 34.7* PO2 ART 73.6* 120.0* 66.2* FIO2 40 60 40 HCO3 ART 21.0 22.7 23.3 BASE EXCESS ART -2.3* -0.3* -0.4* CARBOXYHEMOGLOBIN 1.1 0.8 1.0 Brief Urine Lab Results (Last result in the past 365 days) Color Clarity Blood Leuk Est Nitrite Protein CREAT Urine HCG 01/26/25 1353 Yellow Clear Trace Negative Negative Trace Microbiology Results Abnormal None XR Chest 1 View Result Date: 02/02/2025 XR CHEST 1 VW Date of Exam: 02/02/2025 3:10 AM EDT Indication: eval for PNA. Evaluate for pneumonia.Comparison: 02/01/2025 radiographs Findings: Unchanged cardiomediastinal silhouette. No focal airspace opacity, pleural effusion, or pneumothorax. No acute bone abnormality. Impression: Impression: No evidence of pneumonia. Electronically Signed: Zack Francois MD 02/02/2025 7:43 AM EDT Workstation ID: [id number] XR Chest 1 View Result Date: 02/01/2025 XR CHEST 1 VW Date of Exam: 02/01/2025 5:36 AM EDT Indication: eval for PNA Comparison: Chest radiograph 01/31/2025 Findings: Stable cardiomediastinal silhouette. Patient rotated towards the left, limiting assessment of left lower lobe. No new consolidation, edema, large effusion or pneumothorax. Degenerative elated osseous change. Impression: Impression: No significant interval change. Electronically Signed: Bryn Correa MD 02/01/2025 7:58 AM EDT Workstation ID: [id number] Results for orders placed during the hospital encounter of 01/26/25 Adult Transthoracic Echo Complete W/ Cont if Necessary Per Protocol (With Agitated Saline) 01/27/2025 7:13 AM Interpretation Summary Technically difficult/limited study. Left ventricular systolic function is normal. Estimated left ventricular EF = 65% Left ventricular wall thickness is consistent with mild concentric hypertrophy. Left ventricular diastolic function was normal. Aortic sclerosis without significant stenosis or regurgitation. Trace mitral regurgitation. Saline test results are negative. Current medications: Scheduled Meds:acetylcysteine, 4 mL, Nebulization, TID - RT aspirin, 81 mg, Oral, Daily atorvastatin, 80 mg, Oral, Nightly clopidogrel, 75 mg, Oral, Daily guaiFENesin, 600 mg, Oral, Q12H heparin (porcine), 5,000 Units, Subcutaneous, Q8H levothyroxine, 100 mcg, Oral, Q AM miconazole, 1 Application, Topical, Q12H pantoprazole, 40 mg, Oral, Q AM senna-docusate sodium, 2 tablet, Oral, BID sodium chloride, 4 mL, Nebulization, Daily - RT Continuous Infusions: PRN Meds:. acetaminophen senna-docusate sodium AND polyethylene glycol AND bisacodyl AND bisacodyl Calcium Replacement - Follow Nurse / BPA Driven Protocol dextrose dextrose glucagon (human recombinant) ipratropium-albuterol labetalol Magnesium Cardiology Dose Replacement - Follow Nurse / BPA Driven Protocol nitroglycerin ondansetron Phosphorus Replacement - Follow Nurse / BPA Driven Protocol Potassium Replacement - Follow Nurse / BPA Driven Protocol sodium chloride Assessment & Plan Assessment & Plan Active Hospital Problems Diagnosis POA Encephalopathy, metabolic [G93.41] Yes Hypophosphatemia [E83.39] No Essential hypertension [I10] Yes Type 2 diabetes mellitus [E11.9] Yes Obesity, morbid, BMI 40.0-49.9 [E66.01] Yes Hyperlipidemia [E78.5] Yes Resolved Hospital Problems Diagnosis Date Resolved POA Altered mental status [R41.82] 01/31/2025 Yes Brief Hospital Course to date: Charles Gardner is a 69 y.o. male here with AMS AMS -unclear etiology, resolved -possibly due to PNA/infectious etiology -MRI negative for CVA -EEG negative for seizure activity PNA Respiratory failure with hypoxia -wean oxygen as tolerated -completed course of abx -pulmonary toilet Anemia -monitor DM -SSI Hypothyroidism -synthroid HL Therapy recommended inpatient rehab, patient would like to go home, wean oxygen, home soon Expected Discharge Location and Transportation: TBD Expected Discharge TBD Expected discharge date/ time has not been documented. VTE Prophylaxis: Pharmacologic & mechanical VTE prophylaxis orders are present. AM-PAC 6 Clicks Score (PT): 21 (02/01/251999) CODE STATUS: Code Status and Medical Interventions: CPR (Attempt to Resuscitate); Full Support Ordered at: 01/26/25 1502 Code Status (Patient has no pulse and is not breathing): CPR (Attempt to Resuscitate) Medical Interventions (Patient has pulse or is breathing): Full Support Mario Miranda MD 02/02/25 * Wendie Jimenez RD - 02/01/2025 12:16 PM EDT Clinical Nutrition Patient Name: Charles Gardner Date of : 1955 Date of Encounter: 02/01/25 12:16 EDT Admission date: 01/26/2025 Reason for Visit: Follow-up protocol Assessment Nutrition Assessment Admission Diagnosis: Altered mental status [R41.82] Problem List: Encephalopathy, metabolic Hyperlipidemia Essential hypertension Type 2 diabetes mellitus Obesity, morbid, BMI 40.0-49.9 Hypophosphatemia PMH: He has a past medical history of Hyperlipidemia (10/16/2017), Hypertension, Stroke, and Type 2diabetes mellitus (01/26/2025). PSH: He has a past surgical history that includes Hernia repair (1985 & 1989); Cardiac catheterization (2011); Tumor removal (Left); and Interventional radiology procedure (Bilateral, 06/14/2021). Applicable Nutrition History: Anthropometrics Height: Height: 182.9 cm (72.01 ) Last Filed Weight: Weight: (!) 152 kg (335 lb 1.6 oz) (01/27/25 0600) Method: Weight Method: Estimated BMI: BMI (Calculated): 45.4 UBW: ~330 lb Weight change: No significant changes Nutrition Focused Physical Exam Date: 01/27 Pt does not meet criteria for malnutrition diagnosis, at this time. Subjective Reported/Observed/Food/Nutrition Related History: 02/01 Patient sitting up in bed, talking with spouse at bedside. States he's eating well, no issues. No wants/needs at this time. Not interested in ONS. Notes that he likes diet coke with all meals. 01/27 Patient presented with AMS, became unresponsive at MD office for unknown reason. Remains intubated and sedated. Unable to extubate today, plan for NG placement/EN. Current Nutrition Prescription PO: Diet: Cardiac, Diabetic; Healthy Heart (2-3 Na+); Consistent Carbohydrate; Texture: Regular (IDDSI 7); Fluid Consistency: Thin (IDDSI 0) Oral Nutrition Supplement: N/A Intake: 3 Days: 87% x 2 meals Assessment & Plan Nutrition Diagnosis Date: 01/27 Updated: Problem Inadequate oral intake Etiology AMS requiring intubation and mechanical ventilation Signs/Symptoms NPO Status: New Goal: Nutrition to support treatment and Initiate EN, Establish EN tolerance Nutrition Intervention Follow treatment progress, Care plan reviewed, Advise alternate selection, Advised available snacks, Interview for preferences, Encourage intake, Supplement offered/refused Encourage PO intakes Pt declines ONS Monitoring/Evaluation: Per protocol, I&O, PO intake, Pertinent labs, Weight, GI status, Symptoms, POC/GOC Wendie Jimenez RD Time Spent: 25m * Mario Miranda MD - 02/01/2025 8:32 AM EDT Images from the original note were not included. [facility] Medicine Services PROGRESS NOTE Patient Name: Charles Gardner : 1955 Date of Admission: 01/26/2025 Primary Care Physician: Provider, No Known Subjective Subjective CC: AMS HPI: Up in bed. Notes constipation. Cough noted, no SOA. No chest pain. Denies n/v. No dysuria. Objective Objective Vital Signs: Temp: [97.9 ??F (36.6 ??C)-98.4 ??F (36.9 ??C)] 97.9 ??F (36.6 ??C) Heart Rate: [69-81] 69 Resp: [16-22] 22 BP: (120-166)/(56-99) 120/56 Flow (L/min) (Oxygen Therapy): [2] 2 Physical Exam: NAD, alert OP clear, dry MM Neck supple RRR Decreased at bases, cough noted +BS, soft Obese JOHNSON Normal affect Family at bedside Results Reviewed: LAB RESULTS: Lab 02/01/25 0446 01/31/25 0316 01/30/25 0341 01/29/25 0357 01/28/25 1143 01/28/25 0417 01/27/25 0312 01/26/25 1353 01/26/25 1148 01/26/25 1142 WBC 6.19 5.59 2.70* 11.21* 8.00 -- < > -- -- 6.32 HEMOGLOBIN 13.2 13.4 16.0 15.7 15.5 -- < > -- -- 15.2 HEMOGLOBIN, POC -- -- -- -- -- -- -- -- < > -- HEMATOCRIT 38.3 39.1 48.8 47.9 46.4 -- < > -- -- 45.7 HEMATOCRIT POC -- -- -- -- -- -- -- -- < > -- PLATELETS 141 126* 161 174 116* -- < > -- -- 146 NEUTROS ABS 3.46 2.98 1.56* 8.15* 5.98 -- < > -- -- 3.89 IMMATURE GRANS (ABS) 0.13* 0.05 0.00 0.06* 0.04 -- < > -- -- 0.02 LYMPHS ABS 1.58 1.41 0.58* 1.81 1.14 -- < > -- -- 1.51 MONOS ABS 0.72 0.68 0.35 1.05* 0.68 -- < > -- -- 0.50 EOS ABS 0.25 0.43* 0.18 0.11 0.13 -- < > -- -- 0.35 MCV 97.2* 99.7* 103.2* 102.1* 100.7* -- < > -- -- 101.8* CRP -- -- -- -- -- 4.31* -- -- -- -- PROCALCITONIN -- -- -- -- -- -- -- -- -- 0.07 LACTATE -- -- -- -- -- -- -- -- -- 1.8 HSTROP T -- -- -- -- -- -- -- 11 -- 11 < > = values in this interval not displayed. Lab 02/01/25 0446 01/31/25 1259 01/31/25 0316 01/30/25 0341 01/29/25 0357 01/28/25 0417 01/27/25 0312 01/26/25 1148 01/26/25 1142 SODIUM 140 -- 135* 141 141 144 138 -- 138 POTASSIUM 4.0 4.4 3.6 4.3 3.9 4.0 3.9 -- 4.1 CHLORIDE 106 -- 104 107 108* 110* 105 -- 104 CO2 25.0 -- 21.1* 21.8* 18.4* 19.0* 21.0* -- 24.0 ANION GAP 9.0 -- 9.9 12.2 14.6 15.0 12.0 -- 10.0 BUN 11.2 -- 15.6 25.1* 24.2* 15.2 14.8 -- 13.3 CREATININE 0.70* -- 0.73* 0.91 0.94 0.90 0.87 < > 0.89 EGFR 101.0 -- 99.7 92.4 88.9 93.6 94.6 < > 93.9 GLUCOSE 117* -- 108* 148* 118* 124* 121* -- 120* CALCIUM 8.8 -- 8.5* 9.0 9.3 9.3 9.4 -- 9.9 MAGNESIUM 2.2 -- 2.1 2.2 2.3 2.6* 2.1 -- 2.1 PHOSPHORUS 2.7 1.7* 1.8* 2.5 3.9 4.2 3.6 < > -- HEMOGLOBIN A1C -- -- -- -- -- -- 5.51 -- -- TSH -- -- -- 1.180 -- -- -- -- 5.390* < > = values in this interval not displayed. Lab 01/28/25 0417 01/27/25 0312 01/26/25 1142 TOTAL PROTEIN 7.3 7.0 7.6 ALBUMIN 3.9 3.6 4.0 GLOBULIN 3.4 3.4 3.6 ALT (SGPT) 28 33 35 AST (SGOT) 31 34 34 BILIRUBIN 1.0 0.8 0.6 ALK PHOS 86 81 86 Lab 01/26/25 1353 01/26/25 1142 PROBNP -- 93.0 HSTROP T 11 11 Lab 01/27/25 0312 CHOLESTEROL 137 LDL CHOL 69 HDL CHOL 49 TRIGLYCERIDES 104 Lab 01/28/25 0333 01/27/25 1744 01/27/25 0329 PH, ARTERIAL 7.430 7.459* 7.435 PCO2, ARTERIAL 31.7* 32.0* 34.7* PO2 ART 73.6* 120.0* 66.2* FIO2 40 60 40 HCO3 ART 21.0 22.7 23.3 BASE EXCESS ART -2.3* -0.3* -0.4* CARBOXYHEMOGLOBIN 1.1 0.8 1.0 Brief Urine Lab Results (Last result in the past 365 days) Color Clarity Blood Leuk Est Nitrite Protein CREAT Urine HCG 01/26/25 1353 Yellow Clear Trace Negative Negative Trace Microbiology Results Abnormal None XR Chest 1 View Result Date: 02/01/2025 XR CHEST 1 VW Date of Exam: 02/01/2025 5:36 AM EDT Indication: eval for PNA Comparison: Chest radiograph 01/31/2025 Findings: Stable cardiomediastinal silhouette. Patient rotated towards the left, limiting assessment of left lower lobe. No new consolidation, edema, large effusion or pneumothorax. Degenerative elated osseous change. Impression: Impression: No significant interval change. Electronically Signed: Bryn Correa MD 02/01/2025 7:58 AM EDT Workstation ID: [id number] XR Chest 1 View Result Date: 01/31/2025 XR CHEST 1 VW Date of Exam: 01/31/2025 6:00 AM EDT Indication: eval for PNA Comparison: 01/30/2025 Findings: Heart size normal. Lungs without discrete consolidation. Negative for pneumothorax or effusion. Osseous structures grossly intact. Impression: Impression: No acute process. Electronically Signed: Mustapha Peralta MD 01/31/2025 8:32 AM EDT Workstation ID: [id number] Results for orders placed during the hospital encounter of 01/26/25 Adult Transthoracic Echo Complete W/ Cont if Necessary Per Protocol (With Agitated Saline) 01/27/2025 7:13 AM Interpretation Summary Technically difficult/limited study. Left ventricular systolic function is normal. Estimated left ventricular EF = 65% Left ventricular wall thickness is consistent with mild concentric hypertrophy. Left ventricular diastolic function was normal. Aortic sclerosis without significant stenosis or regurgitation. Trace mitral regurgitation. Saline test results are negative. Current medications: Scheduled Meds:acetylcysteine, 4 mL, Nebulization, TID - RT aspirin, 81 mg, Oral, Daily atorvastatin, 80 mg, Oral, Nightly cefTRIAXone, 2,000 mg, Intravenous, Q24H clopidogrel, 75 mg, Oral, Daily heparin (porcine), 5,000 Units, Subcutaneous, Q8H levothyroxine, 100 mcg, Oral, Q AM miconazole, 1 Application, Topical, Q12H pantoprazole, 40 mg, Oral, Q AM ProSource No Carb, 30 mL, Oral, BID senna-docusate sodium, 2 tablet, Oral, BID Continuous Infusions: PRN Meds:. acetaminophen senna-docusate sodium AND polyethylene glycol AND bisacodyl AND bisacodyl Calcium Replacement - Follow Nurse / BPA Driven Protocol dextrose dextrose glucagon (human recombinant) ipratropium-albuterol labetalol Magnesium Cardiology Dose Replacement - Follow Nurse / BPA Driven Protocol nitroglycerin ondansetron Phosphorus Replacement - Follow Nurse / BPA Driven Protocol Potassium Replacement - Follow Nurse / BPA Driven Protocol sodium chloride Assessment & Plan Assessment & Plan Active Hospital Problems Diagnosis POA Encephalopathy, metabolic [G93.41] Yes Hypophosphatemia [E83.39] No Essential hypertension [I10] Yes Type 2 diabetes mellitus [E11.9] Yes Obesity, morbid, BMI 40.0-49.9 [E66.01] Yes Hyperlipidemia [E78.5] Yes Resolved Hospital Problems Diagnosis Date Resolved POA Altered mental status [R41.82] 01/31/2025 Yes Brief Hospital Course to date: Charles Gardner is a 69 y.o. male here with AMS AMS -unclear etiology, resolved -possibly due to PNA/infectious etiology -MRI negative for CVA -EEG negative for seizure activity PNA Respiratory failure with hypoxia -wean oxygen as tolerated -complete course of abx -pulmonary toilet Anemia -monitor DM -SSI Hypothyroidism -synthroid HL Expected Discharge Location and Transportation: TBD Expected Discharge TBD Expected discharge date/ time has not been documented. VTE Prophylaxis: Pharmacologic & mechanical VTE prophylaxis orders are present. AM-PAC 6 Clicks Score (PT): 19 (01/31/252032) CODE STATUS: Code Status and Medical Interventions: CPR (Attempt to Resuscitate); Full Support Ordered at: 01/26/25 1502 Code Status (Patient has no pulse and is not breathing): CPR (Attempt to Resuscitate) Medical Interventions (Patient has pulse or is breathing): Full Support Mario Miranda MD 02/01/25 * Ernesto Vidales, - 01/31/2025 8:22 AM EDT [employer] WORK[employer] PROGRESS NOTE Hospital: LOS: 5 days Chief Complaint: Altered mental status Subjective Summary: Charles Gardner is a 69-year-old male with HTN, type 2 diabetes, prior strokes, and HLD who was transferred from his PCP office after sudden change in mental status with nausea and diaphoresis precluding his rapid decrease in mental status witnessed by his . He was brought to the ER and was found to have a GCS of 3 requiring intubation. Patient was admitted to neuro ICU on 01/[address]up. [address] head showed no acute bleed and MRI was negative for acute strokes. EEG showed no electrographic seizures. Patient extubated on 01/28 without complications. Due to concern of myxedema coma, patient was started on IV Synthroid on 01/30. Patient will be downgraded to floor on 01/31. Interval History: Patient is accompanied by his at bedside. Patient reports he is doing well with no chest pain,shortness of breath, cough, or altered mental status. He is sitting up eating breakfast with no complaints. I decreased his supplemental oxygen from 4 L to 2 L at bedside because it read SpO2 100%. Patient to be transferred to the floor today. The patient's relevant past medical, surgical and social history were reviewed and updated in Epic as appropriate. Review of Systems Constitutional: Negative for chills and diaphoresis. HENT: Negative for congestion. Respiratory: Negative for chest tightness and shortness of breath. Cardiovascular: Negative for chest pain. Gastrointestinal: Positive for constipation. Negative for nausea and vomiting. Neurological: Negative for dizziness and weakness. ALL OTHER SYSTEMS REVIEWED AND ARE NEGATIVE. Objective Intake/Ouptut 24 hrs (7:00AM - 6:59 AM) Intake & Output (last 3 days) / 0701 08/ 0700 / 0701 01/30 0700 01/30 0701 01/31 0700 01/31 0701 02/01 0700 P.O. 500 I.V. (mL/kg) 410.9 (2.7) 102.5 (0.7) IV Piggyback 224 450 Total Intake(mL/kg) 634.9 (4.2) 1052.5 (6.9) Urine (mL/kg/hr) 1400 (0.4) 1175 (0.3) 1250 (0.3) Emesis/NG output 575 700 Stool 0 0 0 Total Output 1974 1875 1250 Net -1340.1 -822.6 -1250 Urine Unmeasured Occurrence 1 x Stool Unmeasured Occurrence 1 x 3 x 2 x Medications (drips): Respiratory Support: 2 L nasal cannula Physical Examination: Vital Signs: Blood pressure 147/72, pulse 65, temperature 98.9 ??F (37.2 ??C), temperature source Oral, resp. rate 16, height 182.9 cm (72.01 ), weight (!) 152 kg (335 lb 1.6 oz), SpO2 97%. Physical Exam Constitutional: Appearance: Normal appearance. HENT: Head: Normocephalic and atraumatic. Eyes: Pupils: Pupils are equal, round, and reactive to light. Cardiovascular: Rate and Rhythm: Normal rate and regular rhythm. Heart sounds: No murmur heard. Pulmonary: Effort: Pulmonary effort is normal. No respiratory distress. Breath sounds: Normal breath sounds. No stridor. No wheezing, rhonchi or rales. Abdominal: General: There is distension. Tenderness: There is no abdominal tenderness. Neurological: General: No focal deficit present. Mental Status: He is alert and oriented to person, place, and time. Lines, Drains & Airways Active LDAs Name Placement date Placement time Site Days Peripheral IV 01/26/25 1200 18 G Anterior;Distal;Right;Upper Arm 01/26/25 1200 Arm 4 Results from last 7 days Lab Units 01/31/25 0316 01/30/25 0341 01/29/25 0357 WBC 10*3/mm3 5.59 2.70* 11.21* HEMOGLOBIN g/dL 13.4 16.0 15.7 MCV fL 99.7* 103.2* 102.1* PLATELETS 10*3/mm3 126* 161 174 Results from last 7 days Lab Units 01/31/25 03101/30/25 03401/29/25 0357 SODIUM mmol/L 135* 141 141 POTASSIUM mmol/L 3.6 4.3 3.9 CO2 mmol/L 21.1* 21.8* 18.4* CREATININE mg/dL 0.73* 0.91 0.94 GLUCOSE mg/dL 108* 148* 118* MAGNESIUM mg/dL 2.1 2.2 2.3 PHOSPHORUS mg/dL 1.8* 2.5 3.9 Estimated Creatinine Clearance: 148.6 mL/min (A) (by C-G formula based on SCr of 0.73 mg/dL (L)). Results from last 7 days Lab Units 01/28/25 0417 01/27/25 0312 01/26/25 1142 ALK PHOS U/L 86 81 86 BILIRUBIN mg/dL 1.0 0.8 0.6 ALT (SGPT) U/L 28 33 35 AST (SGOT) U/L 31 34 34 Results from last 7 days Lab Units 01/28/25 0333 01/27/25 1744 01/27/25 0329 01/26/25 1517 PH, ARTERIAL pH units 7.430 7.459* 7.435 7.385 PCO2, ARTERIAL mm Hg 31.7* 32.0* 34.7* 42.1 PO2 ART mm Hg 73.6* 120.0* 66.2* 318.0* FIO2 % 40 60 40 100 Images: XR Chest 1 View Result Date: 01/30/2025 Impression: Stable chest without acute cardiopulmonary process. Electronically Signed: Carina Jean MD 01/30/2025 8:58 AM EDT Workstation ID: [id number] Results: Reviewed. - I reviewed the patient's new laboratory including CBC, BMP, phosphorus and imaging results including chest x-ray. - I independently reviewed the patient's new images. CXR (01/31) shows normal-sized heart, no airspace disease, no pleural effusions, no atelectasis, andno other acute findings. Medications: Reviewed. Assessment & Plan Active Hospital Problems: Active Hospital Problems Diagnosis POA Altered mental status [R41.82] Yes Essential hypertension [I10] Yes Type 2 diabetes mellitus [E11.9] Yes Obesity, morbid, BMI 40.0-49.9 [E66.01] Yes Hyperlipidemia [E78.5] Yes Resolved Hospital Problems No resolved problems to display. -Hypophosphatemia Neuro #Encephalopathy, resolved -Etiology unclear but mental status is alert and oriented x 3 -CTA negative for vascular abnormality and MRI negative for stroke -See EEG negative for seizures but consistent with toxic metabolic #Prior strokes: Continue aspirin 81 mg daily and atorvastatin 80 mg nightly #Pain: Tylenol 650 mg every 6 hours as needed #Sleep: No PRNs Pulmonary #Hypoxic respiratory failure, improving - CTA chest (01/26) shows posterior segment left lower lobe infiltrate most likely consistent with pneumonia versus atelectasis -Completed course of antibiotics for empiric coverage of community-acquired pneumonia - Oxygen requirements decreasing down to 2 L nasal cannula - Continue Mucomyst 4 mL 3 times a day - DuoNebs 3 mL every 4 hours as needed - Continue incentive spirometer 10 times per hour Cardiac No acute issues - Normotensive and non-tachycardic - TTE (01/26) shows EF 60-65% with mild concentric LVH and negative bubble test Renal #Hypophosphatemia - Continuing to replace phosphorus x 2 - Other electrolytes and creatinine at baseline (0.73) with good urine output GI #Constipation-senna twice daily, MiraLAX as needed, bisacodyl as needed #Diet: Cardiac diet -No need for GI prophylaxis, can discontinue pantoprazole unless this is a home medication Infectious Disease #Right upper lobe atelectasis - CTA chest (01/26) shows right upper lobe atelectasis - Completed empiric course of ceftriaxone and azithromycin - Viral panel and microbiology showed no growth to date Endocrine #Hypothyroidism: Continue Synthroid 100 mcg each morning #Glucose management: Goal 140-180, controlled with SSI Checklist VTE prophylaxis: Heparin 5000 units every 8 hours Diet: Cardiac diet GI prophylaxis: Not indicated Bowel movements: Senna twice daily, MiraLAX PRN, bisacodyl PRN CODE STATUS: Full code Disposition: Transfer to the floor Advance Directives: Code Status and Medical Interventions: CPR (Attempt to Resuscitate); Full Support Ordered at: 01/26/25 1502 Code Status (Patient has no pulse and is not breathing): CPR (Attempt to Resuscitate) Medical Interventions (Patient has pulse or is breathing): Full Support High level of risk due to severe exacerbation of chronic illness and illness with threat to life orbodily function. I conducted multidisciplinary rounds in the plan of care was discussed with the multidisciplinary team at that time. In attendance at multidisciplinary rounds was clinical pharmacist, dietitian, nursing staff and case management. I discussed the patient's findings and my recommendations with patient, family, nursing staff, and primary care team Critical Care Time: Critical Care time spent in direct patient care: 41 minutes (excluding procedure time, if applicable) including high complexity decision making to assess, manipulate, and support vital organ system failure in this individual who has impairment of one or more vital organ systems such that there is a high probability of imminent or life threatening deterioration in the patient???s condition. -- Ernesto Vidales DO Pulmonary/Critical Care * Heron Abdul MD - 01/30/2025 1:42 PM EDT Intensive Care Progress Note Chief Complaint: Altered mental status Subjective HPI Patient is a 69 y.o. male who was in his primary care physician's office, Dr. Huynh, and had a sudden change in condition. He was there for a checkup and blood draw. I have interviewed his and niece and they were present. They said he suddenly complained of nausea and diaphoresis and had a rapid decrease in mental status. He was brought to the ER and had a GCS of 3 and was intubated. He has a past medical history significant for hypertension, type 2 diabetes mellitus, and dyslipidemia. He had what his family described as a pin stroke several years ago which caused numbness but no loss of consciousness. 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 Workup in the ER so far reveals a negative urinalysis, negative urine drug screen, normal troponin,negative respiratory panel, and generally unremarkable labs. He did not respond to Narcan. He is onno sedating medications at home according to his . His medication list includes aspirin and Plavix but no sedating medications. Imaging consist of a standard CT of the head as well as angiogram and perfusion scan which are all normal. The chest CT reveals some infiltrate and linear changes in the right upper lobe consistent with pneumonia/atelectasis. There are cirrhotic changes in the liver. There is no pulmonary embolism. Interval History Last 24hrs Patient is doing well today, he vomited once overnight after an episode of aggressive coughing. Will monitor closely for further emesis. Abdomen remains soft. Given there is some concern for myxedema coma as a component of his presentation he was started on IV Synthroid which was transitioned to p.o. as the patient is no longer critically ill we will recheck TSH and T4 so that Synthroid dose can be titrated to an appropriate home dose prior to discharge. He is eating breakfast without difficulties today and working with physical therapy. He is on 2 L of nasal cannula oxygen. The patient is stable for transition to floor level of care Problem List, Surgical History, Family, Social History, and ROS Past Medical History: Diagnosis Date Hyperlipidemia 10/16/2017 Hypertension Stroke Type 2 diabetes mellitus 01/26/2025 Past Surgical History: Procedure Laterality Date CARDIAC CATHETERIZATION 2012 HERNIA REPAIR 1985 & 1989 abdominal INTERVENTIONAL RADIOLOGY PROCEDURE Bilateral 06/14/2021 Procedure: Carotid Cerebral Angiogram; Surgeon: Satinder Vazquez MD; Location: [facility] CATH [facility]VASIVELOCATION; Service: Interventional Radiology; Laterality: Bilateral; TUMOR REMOVAL Left FATTY TUMOR REMOVED FROM L SHOULDER No Known Allergies No current facility-administered medications on file prior to encounter. Current Outpatient Medications on File Prior to Encounter Medication Sig aspirin (aspirin) 81 MG EC tablet Take 1 tablet by mouth Every Night. atorvastatin (LIPITOR) 40 MG tablet Take 1 tablet by mouth Every Night. carvedilol (COREG) 6.25 MG tablet Take 1 tablet by mouth 2 (Two) Times a Day. Cholecalciferol 25 MCG (1000 UT) capsule Take 1 capsule by mouth Daily. clopidogrel (PLAVIX) 75 MG tablet Take 1 tablet by mouth Every Morning. empagliflozin (JARDIANCE) 25 MG tablet tablet Take 1 tablet by mouth Daily. furosemide (LASIX) 40 MG tablet Take 2 tablets by mouth Daily. meloxicam (MOBIC) 7.5 MG tablet Take 1 tablet by mouth Daily. metFORMIN ER (GLUCOPHAGE-XR) 500 MG 24 hr tablet Take 1 tablet by mouth 2 (Two) Times a Day With Meals. multivitamin (MULTI-VITAMIN DAILY PO) Take 1 tablet by mouth Daily. OTC isosorbide mononitrate (IMDUR) 30 MG 24 hr tablet Take 1 tablet by mouth Daily. MEDICATION LIST AND ALLERGIES REVIEWED. History reviewed. No pertinent family history. Social History Tobacco Use Smoking status: Former Smokeless tobacco: Current Types: Chew Tobacco comments: QUIT SMOKING IN 1981; Vaping Use Vaping status: Never Used Substance Use Topics Alcohol use: Yes Drug use: Defer Social History Social History Narrative Not on file FAMILY AND SOCIAL HISTORY REVIEWED. Review of Systems ALL OTHER SYSTEMS REVIEWED AND ARE NEGATIVE. Physical Exam and Clinical Information BP 148/82 (BP Location: Left arm, Patient Position: Lying) Pulse 78 Temp 98.5 ??F (36.9 ??C) (Axillary) Resp 20 Ht 182.9 cm (72.01 ) Wt (!) 152 kg (335 lb 1.6 oz) SpO2 94% BMI 45.44 kg/m?? Physical Exam Vitals reviewed. Constitutional: General: He is not in acute distress. HENT: Head: Normocephalic and atraumatic. Right Ear: External ear normal. Left Ear: External ear normal. Nose: Nose normal. Mouth/Throat: Mouth: Mucous membranes are moist. Pharynx: Oropharynx is clear. No oropharyngeal exudate. Eyes: Extraocular Movements: Extraocular movements intact. Pupils: Pupils are equal, round, and reactive to light. Cardiovascular: Rate and Rhythm: Normal rate and regular rhythm. Pulmonary: Effort: Pulmonary effort is normal. No respiratory distress. Abdominal: General: Abdomen is flat. There is no distension. Palpations: Abdomen is soft. Tenderness: There is no abdominal tenderness. Musculoskeletal: Right lower leg: No edema. Left lower leg: No edema. Skin: General: Skin is warm and dry. Capillary Refill: Capillary refill takes less than 2 seconds. Neurological: Mental Status: He is alert. Comments: Patient remains at 5 out of 5 strength x 4 extremities no cranial nerve deficits. Following commands Results from last 7 days Lab Units 01/30/25 0341 01/29/25 0357 01/28/25 1143 WBC 10*3/mm3 2.70* 11.21* 8.00 HEMOGLOBIN g/dL 16.0 15.7 15.5 PLATELETS 10*3/mm3 161 174 116* Results from last 7 days Lab Units 01/30/25 0341 01/29/25 0357 01/28/25 0417 SODIUM mmol/L 141 141 144 POTASSIUM mmol/L 4.3 3.9 4.0 CO2 mmol/L 21.8* 18.4* 19.0* BUN mg/dL 25.1* 24.2* 15.2 CREATININE mg/dL 0.91 0.94 0.90 MAGNESIUM mg/dL 2.2 2.3 2.6* PHOSPHORUS mg/dL 2.5 3.9 4.2 GLUCOSE mg/dL 148* 118* 124* Estimated Creatinine Clearance: 119.2 mL/min (by C-G formula based on SCr of 0.91 mg/dL). Results from last 7 days Lab Units 01/27/25 0312 HEMOGLOBIN A1C % 5.51 Results from last 7 days Lab Units 01/28/25 0333 PH, ARTERIAL pH units 7.430 PCO2, ARTERIAL mm Hg 31.7* PO2 ART mm Hg 73.6* Lab Results Component Value Date LACTATE 1.8 01/26/2025 I reviewed the patient's results/ images and I agree with the reports. Impression Altered mental status Hyperlipidemia Essential hypertension Type 2 diabetes mellitus Obesity, morbid, BMI 40.0-49.9 Plan/Recommendations Neuro: # Altered mental status, resolved - MRI negative for stroke - CTA negative for vascular abnormality -cEEG negative for seizures, toxic metabolic pattern - Etiology of altered mental status remains unclear, however he is now returned to baseline - May be related to encephalopathy in the setting of pneumonia Cardiac: # Non-tachycardic, normotensive # Echo: EF 65%, no shunt # Home medications & problems: Atorvastatin Respiratory: # Ventilatory Support: Nasal cannula, BiPAP at night # Consolidated right upper lobe seen on initial CTA head and neck -Repeat CT scan following increased PEEP demonstrates resolution of consolidation, suspect atelectasis -Plan to complete course of antibiotics for CAP - Aggressive pulmonary toilet with I-S which the patient is holding on hand during exam today Renal: # BUN/Cr acceptable/at baseline # Electrolytes repletion protocol ordered GI: # Restarted cardiac diet today # GIB Prophylaxis: Protonix # Bowel Regimen Protocol Ordered Heme: # H&H stable, no active sources of bleeding # DVT prophylaxis: 3 times daily heparin start today # Anti-platelet: Aspirin 81 Infectious Disease: # Pneumonia right upper lobe # Antibiotics: Ceftriaxone plus azithromycin - Target Organism: Empiric CAP # Cultures: No growth to date blood cultures. Viral panel negative Endocrine: # Glucose mgmt: Sliding scale insulin # Hypothyroidism: Synthroid 100 - Follow-up TSH/T4 recheck Heron Abdul MD Critical Care Medicine 01/30/25 13:42 EDT CC: Provider, No Known * Heron Abdul MD - 01/29/2025 2:28 PM EDT Intensive Care Progress Note Chief Complaint: Altered mental status Subjective HPI Patient is a 69 y.o. male who was in his primary care physician's office, Dr. Huynh, and had a sudden change in condition. He was there for a checkup and blood draw. I have interviewed his and niece and they were present. They said he suddenly complained of nausea and diaphoresis and had a rapid decrease in mental status. He was brought to the ER and had a GCS of 3 and was intubated. He has a past medical history significant for hypertension, type 2 diabetes mellitus, and dyslipidemia. He had what his family described as a pin stroke several years ago which caused numbness but no loss of consciousness. 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 Workup in the ER so far reveals a negative urinalysis, negative urine drug screen, normal troponin,negative respiratory panel, and generally unremarkable labs. He did not respond to Narcan. He is onno sedating medications at home according to his . His medication list includes aspirin and Plavix but no sedating medications. Imaging consist of a standard CT of the head as well as angiogram and perfusion scan which are all normal. The chest CT reveals some infiltrate and linear changes in the right upper lobe consistent with pneumonia/atelectasis. There are cirrhotic changes in the liver. There is no pulmonary embolism. Interval History Last 24hrs Patient is doing well today, passed swallow this morning, remained extubated and on nasal cannula oxygen. BiPAP at night for CHINTAN. We will de-escalate antibiotics to azithromycin and ceftriaxone for treatment of a presumed community-acquired pneumonia in the right upper lobe. Restarted diet, discontinued Weber catheter today. Problem List, Surgical History, Family, Social History, and ROS Past Medical History: Diagnosis Date Hyperlipidemia 10/16/2017 Hypertension Stroke Type 2 diabetes mellitus 01/26/2025 Past Surgical History: Procedure Laterality Date CARDIAC CATHETERIZATION 2011 HERNIA REPAIR 1985 & 1989 abdominal INTERVENTIONAL RADIOLOGY PROCEDURE Bilateral 06/14/2021 Procedure: Carotid Cerebral Angiogram; Surgeon: Satinder Vazquez MD; Location: [facility] CATH [facility]; Service: Interventional Radiology; Laterality: Bilateral; TUMOR REMOVAL Left FATTY TUMOR REMOVED FROM L SHOULDER No Known Allergies No current facility-administered medications on file prior to encounter. Current Outpatient Medications on File Prior to Encounter Medication Sig aspirin (aspirin) 81 MG EC tablet Take 1 tablet by mouth Every Night. atorvastatin (LIPITOR) 40 MG tablet Take 1 tablet by mouth Every Night. carvedilol (COREG) 6.25 MG tablet Take 1 tablet by mouth 2 (Two) Times a Day. Cholecalciferol 25 MCG (1000 UT) capsule Take 1 capsule by mouth Daily. clopidogrel (PLAVIX) 75 MG tablet Take 1 tablet by mouth Every Morning. empagliflozin (JARDIANCE) 25 MG tablet tablet Take 1 tablet by mouth Daily. furosemide (LASIX) 40 MG tablet Take 2 tablets by mouth Daily. meloxicam (MOBIC) 7.5 MG tablet Take 1 tablet by mouth Daily. metFORMIN ER (GLUCOPHAGE-XR) 500 MG 24 hr tablet Take 1 tablet by mouth 2 (Two) Times a Day With Meals. multivitamin (MULTI-VITAMIN DAILY PO) Take 1 tablet by mouth Daily. OTC isosorbide mononitrate (IMDUR) 30 MG 24 hr tablet Take 1 tablet by mouth Daily. MEDICATION LIST AND ALLERGIES REVIEWED. History reviewed. No pertinent family history. Social History Tobacco Use Smoking status: Former Smokeless tobacco: Current Types: Chew Tobacco comments: QUIT SMOKING IN 1981; Vaping Use Vaping status: Never Used Substance Use Topics Alcohol use: Yes Drug use: Defer Social History Social History Narrative Not on file FAMILY AND SOCIAL HISTORY REVIEWED. Review of Systems ALL OTHER SYSTEMS REVIEWED AND ARE NEGATIVE. Physical Exam and Clinical Information BP 159/87 Pulse 74 Temp 98.3 ??F (36.8 ??C) (Axillary) Resp 24 Ht 182.9 cm (72.01 ) Wt (!) 152 kg (335 lb 1.6 oz) SpO2 95% BMI 45.44 kg/m?? Physical Exam Vitals reviewed. Constitutional: General: He is not in acute distress. HENT: Head: Normocephalic and atraumatic. Right Ear: External ear normal. Left Ear: External ear normal. Nose: Nose normal. Mouth/Throat: Mouth: Mucous membranes are moist. Pharynx: Oropharynx is clear. No oropharyngeal exudate. Eyes: Extraocular Movements: Extraocular movements intact. Pupils: Pupils are equal, round, and reactive to light. Cardiovascular: Rate and Rhythm: Normal rate and regular rhythm. Pulmonary: Effort: Pulmonary effort is normal. No respiratory distress. Abdominal: General: Abdomen is flat. There is no distension. Palpations: Abdomen is soft. Tenderness: There is no abdominal tenderness. Musculoskeletal: Right lower leg: No edema. Left lower leg: No edema. Skin: General: Skin is warm and dry. Capillary Refill: Capillary refill takes less than 2 seconds. Neurological: Mental Status: He is alert. Comments: Patient remains at 5 out of 5 strength x 4 extremities no cranial nerve deficits. Following commands Results from last 7 days Lab Units 01/29/25 0357 01/28/25 1143 01/27/25 0312 WBC 10*3/mm3 11.21* 8.00 7.36 HEMOGLOBIN g/dL 15.7 15.5 14.2 PLATELETS 10*3/mm3 174 116* 121* Results from last 7 days Lab Units 01/29/25 0357 01/28/25 0417 01/27/25 0312 SODIUM mmol/L 141 144 138 POTASSIUM mmol/L 3.9 4.0 3.9 CO2 mmol/L 18.4* 19.0* 21.0* BUN mg/dL 24.2* 15.2 14.8 CREATININE mg/dL 0.94 0.90 0.87 MAGNESIUM mg/dL 2.3 2.6* 2.1 PHOSPHORUS mg/dL 3.9 4.2 3.6 GLUCOSE mg/dL 118* 124* 121* Estimated Creatinine Clearance: 115.4 mL/min (by C-G formula based on SCr of 0.94 mg/dL). Results from last 7 days Lab Units 01/27/25 0312 HEMOGLOBIN A1C % 5.51 Results from last 7 days Lab Units 01/28/25 0333 PH, ARTERIAL pH units 7.430 PCO2, ARTERIAL mm Hg 31.7* PO2 ART mm Hg 73.6* Lab Results Component Value Date LACTATE 1.8 01/26/2025 I reviewed the patient's results/ images and I agree with the reports. Impression Altered mental status Hyperlipidemia Essential hypertension Type 2 diabetes mellitus Obesity, morbid, BMI 40.0-49.9 Plan/Recommendations Neuro: # Altered mental status, resolved - MRI negative for stroke - CTA negative for vascular abnormality -cEEG negative for seizures, toxic metabolic pattern - Etiology of altered mental status remains unclear, however he is now returned to baseline -May berelated to pneumonia Cardiac: # Non-tachycardic, normotensive # Echo: EF 65%, no shunt # Home medications & problems: Atorvastatin Respiratory: # Ventilatory Support: Nasal cannula, BiPAP at night # Consolidated right upper lobe seen on initial CTA head and neck -Repeat CT scan following increased PEEP demonstrates resolution of consolidation, suspect atelectasis -Plan to complete course of antibiotics for CAP - Aggressive pulmonary toilet with I-S Renal: # BUN/Cr acceptable/at baseline # Electrolytes repletion protocol ordered GI: # Restarted cardiac diet today # GIB Prophylaxis: Protonix # Bowel Regimen Protocol Ordered Heme: # H&H stable, no active sources of bleeding # DVT prophylaxis: 3 times daily heparin start today # Anti-platelet: Aspirin 81 Infectious Disease: # Pneumonia right upper lobe # Antibiotics: Ceftriaxone plus azithromycin - Target Organism: Empiric CAP # Cultures: No growth to date blood cultures. Viral panel negative Endocrine: # Glucose mgmt: Sliding scale insulin # Hypothyroidism: Synthroid 100 Critical Care Time: 39 minutes of critical care provided. This time excludes other billable procedures. Time does include preparation of documents, medical consultations, review of old records, and direct bedside care. Patient is at high risk for life-threatening deterioration due to hypoxic respiratory failure, altered mental status. He has a high risk of imminent or life-threatening deterioration, which requires the highest level of physician preparedness to intervene urgently. I devoted my full attention to the direct care of this patient for the amount of time indicated above. Time spent with family or surrogate(s) is included only if the patient was incapable of providing the necessary information or participating in medical decision making. Heron Abdul MD Critical Care Medicine 01/29/25 14:28 EDT CC: Provider, No Known * Heron Abdul MD - 01/28/2025 2:39 PM EDT Intensive Care Progress Note Chief Complaint: Altered mental status Subjective HPI Patient is a 69 y.o. male who was in his primary care physician's office, Dr. Huynh, and had a sudden change in condition. He was there for a checkup and blood draw. I have interviewed his and niece and they were present. They said he suddenly complained of nausea and diaphoresis and had a rapid decrease in mental status. He was brought to the ER and had a GCS of 3 and was intubated. He has a past medical history significant for hypertension, type 2 diabetes mellitus, and dyslipidemia. He had what his family described as a pin stroke several years ago which caused numbness but no loss of consciousness. 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 Workup in the ER so far reveals a negative urinalysis, negative urine drug screen, normal troponin,negative respiratory panel, and generally unremarkable labs. He did not respond to Narcan. He is onno sedating medications at home according to his . His medication list includes aspirin and Plavix but no sedating medications. Imaging consist of a standard CT of the head as well as angiogram and perfusion scan which are all normal. The chest CT reveals some infiltrate and linear changes in the right upper lobe consistent with pneumonia/atelectasis. There are cirrhotic changes in the liver. There is no pulmonary embolism. Interval History Last 24hrs This morning patient is much more awake tolerating PSV ventilation. His ABG does not demonstrate any hypercapnia. PO2 is a bit low. Will plan to extubate, BiPAP at night for CHINTAN. Lasix 20 for diuresis today. Mucomyst and DuoNebs for wheezing and secretion burden Problem List, Surgical History, Family, Social History, and ROS Past Medical History: Diagnosis Date Hyperlipidemia 10/16/2017 Hypertension Stroke Type 2 diabetes mellitus 01/26/2025 Past Surgical History: Procedure Laterality Date CARDIAC CATHETERIZATION 2011 HERNIA REPAIR 1985 & 1989 abdominal INTERVENTIONAL RADIOLOGY PROCEDURE Bilateral 06/14/2021 Procedure: Carotid Cerebral Angiogram; Surgeon: Satinder Vazquez MD; Location: [facility]ATH [facility]; Service: Interventional Radiology; Laterality: Bilateral; TUMOR REMOVAL Left FATTY TUMOR REMOVED FROM L SHOULDER No Known Allergies No current facility-administered medications on file prior to encounter. Current Outpatient Medications on File Prior to Encounter Medication Sig aspirin (aspirin) 81 MG EC tablet Take 1 tablet by mouth Every Night. atorvastatin (LIPITOR) 40 MG tablet Take 1 tablet by mouth Every Night. carvedilol (COREG) 6.25 MG tablet Take 1 tablet by mouth 2 (Two) Times a Day. Cholecalciferol 25 MCG (1000 UT) capsule Take 1 capsule by mouth Daily. clopidogrel (PLAVIX) 75 MG tablet Take 1 tablet by mouth Every Morning. empagliflozin (JARDIANCE) 25 MG tablet tablet Take 1 tablet by mouth Daily. furosemide (LASIX) 40 MG tablet Take 2 tablets by mouth Daily. meloxicam (MOBIC) 7.5 MG tablet Take 1 tablet by mouth Daily. metFORMIN ER (GLUCOPHAGE-XR) 500 MG 24 hr tablet Take 1 tablet by mouth 2 (Two) Times a Day With Meals. multivitamin (MULTI-VITAMIN DAILY PO) Take 1 tablet by mouth Daily. OTC isosorbide mononitrate (IMDUR) 30 MG 24 hr tablet Take 1 tablet by mouth Daily. MEDICATION LIST AND ALLERGIES REVIEWED. History reviewed. No pertinent family history. Social History Tobacco Use Smoking status: Former Smokeless tobacco: Current Types: Chew Tobacco comments: QUIT SMOKING IN 1981; Vaping Use Vaping status: Never Used Substance Use Topics Alcohol use: Yes Drug use: Defer Social History Social History Narrative Not on file FAMILY AND SOCIAL HISTORY REVIEWED. Review of Systems ALL OTHER SYSTEMS REVIEWED AND ARE NEGATIVE. Physical Exam and Clinical Information BP 132/72 Pulse 67 Temp 99.4 ??F (37.4 ??C) (Axillary) Resp 26 Ht 182.9 cm (72.01 ) Wt (!) 152 kg (335 lb 1.6 oz) SpO2 92% BMI 45.44 kg/m?? Physical Exam Vitals reviewed. Constitutional: General: He is not in acute distress. HENT: Head: Normocephalic and atraumatic. Right Ear: External ear normal. Left Ear: External ear normal. Nose: Nose normal. Mouth/Throat: Mouth: Mucous membranes are moist. Pharynx: Oropharynx is clear. No oropharyngeal exudate. Eyes: Extraocular Movements: Extraocular movements intact. Pupils: Pupils are equal, round, and reactive to light. Cardiovascular: Rate and Rhythm: Normal rate and regular rhythm. Pulmonary: Effort: Pulmonary effort is normal. No respiratory distress. Abdominal: General: Abdomen is flat. There is no distension. Palpations: Abdomen is soft. Tenderness: There is no abdominal tenderness. Musculoskeletal: Right lower leg: No edema. Left lower leg: No edema. Skin: General: Skin is warm and dry. Capillary Refill: Capillary refill takes less than 2 seconds. Neurological: Mental Status: He is alert. Comments: Patient remains at 5 out of 5 strength x 4 extremities no cranial nerve deficits. Following commands Results from last 7 days Lab Units 01/28/25 1143 01/27/25 0312 01/26/25 1148 01/26/25 1142 WBC 10*3/mm3 8.00 7.36 -- 6.32 HEMOGLOBIN g/dL 15.5 14.2 -- 15.2 HEMOGLOBIN, POC g/dL -- -- 15.6 -- PLATELETS 10*3/mm3 116* 121* -- 146 Results from last 7 days Lab Units 01/28/25 0417 01/27/25 0312 01/26/25 1148 01/26/25 1142 SODIUM mmol/L 144 138 -- 138 POTASSIUM mmol/L 4.0 3.9 -- 4.1 CO2 mmol/L 19.0* 21.0* -- 24.0 BUN mg/dL 15.2 14.8 -- 13.3 CREATININE mg/dL 0.90 0.87 1.00 0.89 MAGNESIUM mg/dL 2.6* 2.1 -- 2.1 PHOSPHORUS mg/dL 4.2 3.6 -- -- GLUCOSE mg/dL 124* 121* -- 120* Estimated Creatinine Clearance: 120.5 mL/min (by C-G formula based on SCr of 0.9 mg/dL). Results from last 7 days Lab Units 01/27/25 0312 HEMOGLOBIN A1C % 5.51 Results from last 7 days Lab Units 01/28/25 0333 PH, ARTERIAL pH units 7.430 PCO2, ARTERIAL mm Hg 31.7* PO2 ART mm Hg 73.6* Lab Results Component Value Date LACTATE 1.8 01/26/2025 I reviewed the patient's results/ images and I agree with the reports. Impression Altered mental status Hyperlipidemia Essential hypertension Type 2 diabetes mellitus Obesity, morbid, BMI 40.0-49.9 Plan/Recommendations Neuro: # Altered mental status, resolved - MRI negative for stroke - CTA negative for vascular abnormality -cEEG negative for seizures, toxic metabolic pattern - Etiology of altered mental status remains unclear, however he is now returned to baseline -May berelated to pneumonia # Sedative Drips: Precedex off now Cardiac: # Non-tachycardic, normotensive # Echo: EF 65%, no shunt # Home medications & problems: Atorvastatin Respiratory: # Ventilatory Support: Pressure support ventilation 03/28/40% --> extubate # Consolidated right upper lobe seen on initial CTA head and neck -Repeat CT scan following increased PEEP demonstrates resolution of consolidation, suspect atelectasis -Plan to complete course of antibiotics for CAP - Once extubated aggressive pulmonary toilet with incentive spirometer and suctioning Renal: # BUN/Cr acceptable/at baseline # Electrolytes repletion protocol ordered GI: # Swallow eval today, can have diet once completed # GIB Prophylaxis: Protonix # Bowel Regimen Protocol Ordered Heme: # H&H stable, no active sources of bleeding # DVT prophylaxis: 3 times daily heparin start today # Anti-platelet: Aspirin 81 Infectious Disease: # Pneumonia right upper lobe # Antibiotics: Zosyn - Target Organism: Empiric pulmonary # Cultures: No growth to date blood cultures. Viral panel negative Endocrine: # Glucose mgmt: Sliding scale insulin # Hypothyroidism: Synthroid 100 Critical Care Time: 38 minutes of critical care provided. This time excludes other billable procedures. Time does include preparation of documents, medical consultations, review of old records, and direct bedside care. Patient is at high risk for life-threatening deterioration due to hypoxic respiratory failure, altered mental status. He has a high risk of imminent or life-threatening deterioration, which requires the highest level of physician preparedness to intervene urgently. I devoted my full attention to the direct care of this patient for the amount of time indicated above. Time spent with family or surrogate(s) is included only if the patient was incapable of providing the necessary information or participating in medical decision making. Heron Abdul MD Critical Care Medicine 01/28/25 14:39 EDT CC: Provider, No Known * Heron Abdul MD - 01/27/2025 1:59 PM EDT Intensive Care Progress Note Chief Complaint: Altered mental status Subjective HPI Patient is a 69 y.o. male who was in his primary care physician's office, Dr. Huynh, and had a sudden change in condition. He was there for a checkup and blood draw. I have interviewed his and niece and they were present. They said he suddenly complained of nausea and diaphoresis and had a rapid decrease in mental status. He was brought to the ER and had a GCS of 3 and was intubated. He has a past medical history significant for hypertension, type 2 diabetes mellitus, and dyslipidemia. He had what his family described as a pin stroke several years ago which caused numbness but no loss of consciousness. 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 Workup in the ER so far reveals a negative urinalysis, negative urine drug screen, normal troponin,negative respiratory panel, and generally unremarkable labs. He did not respond to Narcan. He is onno sedating medications at home according to his . His medication list includes aspirin and Plavix but no sedating medications. Imaging consist of a standard CT of the head as well as angiogram and perfusion scan which are all normal. The chest CT reveals some infiltrate and linear changes in the right upper lobe consistent with pneumonia/atelectasis. There are cirrhotic changes in the liver. There is no pulmonary embolism. Interval History Last 24hrs Patient is now awakening intermittently and moving all 4 extremities. He had an episode of desaturation this a.m. His CT of the neck was reviewed and demonstrates a consolidation of the right upper lobe which was treated with increased PEEP and resolved without the need for bronchoscopy on repeat imaging. Will continue to wean sedation with goal of extubation. PSV trial today patient tolerated x 2 hours. Problem List, Surgical History, Family, Social History, and ROS Past Medical History: Diagnosis Date Hyperlipidemia 10/16/2017 Hypertension Stroke Type 2 diabetes mellitus 01/26/2025 Past Surgical History: Procedure Laterality Date CARDIAC CATHETERIZATION 2011 HERNIA REPAIR 1985 & 1989 abdominal INTERVENTIONAL RADIOLOGY PROCEDURE Bilateral 06/14/2021 Procedure: Carotid Cerebral Angiogram; Surgeon: Satinder Vazquez MD; Location: [facility]ATH [facility]; Service: Interventional Radiology; Laterality: Bilateral; TUMOR REMOVAL Left FATTY TUMOR REMOVED FROM L SHOULDER No Known Allergies No current facility-administered medications on file prior to encounter. Current Outpatient Medications on File Prior to Encounter Medication Sig aspirin (aspirin) 81 MG EC tablet Take 1 tablet by mouth Every Night. atorvastatin (LIPITOR) 40 MG tablet Take 1 tablet by mouth Every Night. carvedilol (COREG) 6.25 MG tablet Take 1 tablet by mouth 2 (Two) Times a Day. Cholecalciferol 25 MCG (1000 UT) capsule Take 1 capsule by mouth Daily. clopidogrel (PLAVIX) 75 MG tablet Take 1 tablet by mouth Every Morning. empagliflozin (JARDIANCE) 25 MG tablet tablet Take 1 tablet by mouth Daily. furosemide (LASIX) 40 MG tablet Take 2 tablets by mouth Daily. meloxicam (MOBIC) 7.5 MG tablet Take 1 tablet by mouth Daily. metFORMIN ER (GLUCOPHAGE-XR) 500 MG 24 hr tablet Take 1 tablet by mouth 2 (Two) Times a Day With Meals. multivitamin (MULTI-VITAMIN DAILY PO) Take 1 tablet by mouth Daily. OTC isosorbide mononitrate (IMDUR) 30 MG 24 hr tablet Take 1 tablet by mouth Daily. MEDICATION LIST AND ALLERGIES REVIEWED. History reviewed. No pertinent family history. Social History Tobacco Use Smoking status: Former Smokeless tobacco: Current Types: Chew Tobacco comments: QUIT SMOKING IN 1981; Vaping Use Vaping status: Never Used Substance Use Topics Alcohol use: Yes Drug use: Defer Social History Social History Narrative Not on file FAMILY AND SOCIAL HISTORY REVIEWED. Review of Systems ALL OTHER SYSTEMS REVIEWED AND ARE NEGATIVE. Physical Exam and Clinical Information BP 152/78 Pulse 59 Temp 99.5 ??F (37.5 ??C) (Axillary) Resp 16 Ht 182.9 cm (72.01 ) Wt (!) 152 kg (335 lb 1.6 oz) SpO2 100% BMI 45.44 kg/m?? Physical Exam Vitals reviewed. Constitutional: General: He is not in acute distress. HENT: Head: Normocephalic and atraumatic. Right Ear: External ear normal. Left Ear: External ear normal. Nose: Nose normal. Mouth/Throat: Mouth: Mucous membranes are moist. Pharynx: Oropharynx is clear. No oropharyngeal exudate. Eyes: Extraocular Movements: Extraocular movements intact. Pupils: Pupils are equal, round, and reactive to light. Cardiovascular: Rate and Rhythm: Normal rate and regular rhythm. Pulmonary: Effort: Pulmonary effort is normal. No respiratory distress. Abdominal: General: Abdomen is flat. There is no distension. Palpations: Abdomen is soft. Tenderness: There is no abdominal tenderness. Musculoskeletal: Right lower leg: No edema. Left lower leg: No edema. Skin: General: Skin is warm and dry. Capillary Refill: Capillary refill takes less than 2 seconds. Neurological: Mental Status: He is alert. Comments: Patient remains at 5 out of 5 strength x 4 extremities however intermittently following commands and withdrawing to pain. His mental status appears to wax and wane quite significantly. He has no cranial nerve deficits. Results from last 7 days Lab Units 01/27/25 0312 01/26/25 1148 01/26/25 1142 WBC 10*3/mm3 7.36 -- 6.32 HEMOGLOBIN g/dL 14.2 -- 15.2 HEMOGLOBIN, POC g/dL -- 15.6 -- PLATELETS 10*3/mm3 121* -- 146 Results from last 7 days Lab Units 01/27/25 0312 01/26/25 1148 01/26/25 1142 SODIUM mmol/L 138 -- 138 POTASSIUM mmol/L 3.9 -- 4.1 CO2 mmol/L 21.0* -- 24.0 BUN mg/dL 14.8 -- 13.3 CREATININE mg/dL 0.87 1.00 0.89 MAGNESIUM mg/dL 2.1 -- 2.1 PHOSPHORUS mg/dL 3.6 -- -- GLUCOSE mg/dL 121* -- 120* Estimated Creatinine Clearance: 124.7 mL/min (by C-G formula based on SCr of 0.87 mg/dL). Results from last 7 days Lab Units 01/27/25 0312 HEMOGLOBIN A1C % 5.51 Results from last 7 days Lab Units 01/27/25 0329 PH, ARTERIAL pH units 7.435 PCO2, ARTERIAL mm Hg 34.7* PO2 ART mm Hg 66.2* Lab Results Component Value Date LACTATE 1.8 01/26/2025 I reviewed the patient's results/ images and I agree with the reports. Impression Altered mental status Hyperlipidemia Essential hypertension Type 2 diabetes mellitus Obesity, morbid, BMI 40.0-49.9 Plan/Recommendations Neuro: # Altered mental status - MRI negative for stroke - CTA negative for vascular abnormality -cEEG negative for seizures, toxic metabolic pattern -Waxing and waning mental status however when the patient awakens he is 5 out of 5 strength x 4 extremities # Sedative Drips: Precedex Cardiac: # Non-tachycardic, normotensive # Echo: EF 65%, no shunt # Home medications & problems: Atorvastatin Respiratory: # Ventilatory Support: NC2L as needed # Consolidated right upper lobe seen on initial CTA head and neck -PEEP increased to 10 -Repeat CT scan following increased PEEP demonstrates resolution of consolidation, suspect atelectasis -Plan to complete course of antibiotics for CAP Renal: # BUN/Cr acceptable/at baseline # Electrolytes repletion protocol ordered GI: # Start tube feeds today # GIB Prophylaxis: Protonix # Bowel Regimen Protocol Ordered Heme: # H&H stable, no active sources of bleeding # DVT prophylaxis: 3 times daily heparin start today # Anti-platelet: Aspirin 81 Infectious Disease: # WBC stable, Afebrile # Antibiotics: Zosyn - Target Organism: Empiric pulmonary # Cultures: No growth to date Endocrine: # Glucose mgmt: Sliding scale insulin # Hypothyroidism: Synthroid 100 Critical Care Time: 38 minutes of critical care provided. This time excludes other billable procedures. Time does include preparation of documents, medical consultations, review of old records, and direct bedside care. Patient is at high risk for life-threatening deterioration due to hypoxic respiratory failure, altered mental status. He has a high risk of imminent or life-threatening deterioration, which requires the highest level of physician preparedness to intervene urgently. I devoted my full attention to the direct care of this patient for the amount of time indicated above. Time spent with family or surrogate(s) is included only if the patient was incapable of providing the necessary information or participating in medical decision making. Heron Abdul MD Critical Care Medicine 01/27/25 13:59 EDT CC: Provider, No Known * Fritz Cabrales MD - 01/27/2025 12:56 PM EDT Stroke Progress Note Chief Complaint: Unresponsiveness Subjective Subjective Subjective: The patient is lying down in the bed in NAD. Family were at the bedside. The patient is intubated and is unable to provide any further details. As per the he was in his normal state jokingly talking to the nurse at the doctor's office where he all of a sudden collapsed. She denies noticing anyrecent weakness, speech problem or vision changes. I discussed with the patient's the patient's imaging findings and what could possibly explain his symptoms. All questions and concerns were answered. Review of Systems Unable to obtain secondary to intubation and altered mental status Objective Temp: [97 ??F (36.1 ??C)-99.5 ??F (37.5 ??C)] 99.5 ??F (37.5 ??C) Heart Rate: [59-80] 60 Resp: [16] 16 BP: (98-177)/(54-126) 122/76 FiO2 (%): [30 %-60 %] 60 % Objective GEN: intubated and sedated with Precedex HEENT: Moist mucous membranes CV: RRR, no peripheral edema NEURO: Mental Status: intubated and sedated with Precedex. Not withdrawing to noxious stimuli but would grimace to noxious stimuli Speech: CECILIA 2/2 intubation CN 2-12: pupils are 3 mm in diameter and sluggishly reacting to light. Corneal reflexes present bilaterally motor and sensory: The patient would not withdraw his bilateral upper and lower extremitiesto noxious stimuli Coordination: CECILIA 2/2 intubation Gait/Station: CECILIA 2/2 intubation Cortical: CECILIA 2/2 intubation Results Review: I reviewed the patient's new clinical results. WBC Date Value Ref Range Status 01/27/2025 7.36 3.40 - 10.80 10*3/mm3 Final RBC Date Value Ref Range Status 01/27/2025 4.25 4.14 - 5.80 10*6/mm3 Final Hemoglobin Date Value Ref Range Status 01/27/2025 14.2 13.0 - 17.7 g/dL Final Hematocrit Date Value Ref Range Status 01/27/2025 42.7 37.5 - 51.0 % Final MCV Date Value Ref Range Status 01/27/2025 100.5 (H) 79.0 - 97.0 fL Final MCH Date Value Ref Range Status 01/27/2025 33.4 (H) 26.6 - 33.0 pg Final MCHC Date Value Ref Range Status 01/27/2025 33.3 31.5 - 35.7 g/dL Final RDW Date Value Ref Range Status 01/27/2025 13.1 12.3 - 15.4 % Final RDW-SD Date Value Ref Range Status 01/27/2025 48.4 37.0 - 54.0 fl Final MPV Date Value Ref Range Status 01/27/2025 9.3 6.0 - 12.0 fL Final Platelets Date Value Ref Range Status 01/27/2025 121 (L) 140 - 450 10*3/mm3 Final Neutrophil % Date Value Ref Range Status 01/27/2025 68.0 42.7 - 76.0 % Final Lymphocyte % Date Value Ref Range Status 01/27/2025 19.4 (L) 19.6 - 45.3 % Final Monocyte % Date Value Ref Range Status 01/27/2025 8.2 5.0 - 12.0 % Final Eosinophil % Date Value Ref Range Status 01/27/2025 3.8 0.3 - 6.2 % Final Basophil % Date Value Ref Range Status 01/27/2025 0.3 0.0 - 1.5 % Final Immature Grans % Date Value Ref Range Status 01/27/2025 0.3 0.0 - 0.5 % Final Neutrophils, Absolute Date Value Ref Range Status 01/27/2025 5.01 1.70 - 7.00 10*3/mm3 Final Lymphocytes, Absolute Date Value Ref Range Status 01/27/2025 1.43 0.70 - 3.10 10*3/mm3 Final Monocytes, Absolute Date Value Ref Range Status 01/27/2025 0.60 0.10 - 0.90 10*3/mm3 Final Eosinophils, Absolute Date Value Ref Range Status 01/27/2025 0.28 0.00 - 0.40 10*3/mm3 Final Basophils, Absolute Date Value Ref Range Status 01/27/2025 0.02 0.00 - 0.20 10*3/mm3 Final Immature Grans, Absolute Date Value Ref Range Status 01/27/2025 0.02 0.00 - 0.05 10*3/mm3 Final nRBC Date Value Ref Range Status 01/27/2025 0.0 0.0 - 0.2 /100 WBC Final Lab Results Component Value Date GLUCOSE 121 (H) 01/27/2025 BUN 14.8 01/27/2025 CREATININE 0.87 01/27/2025 NA 138 01/27/2025 K 3.9 01/27/2025 CL 105 01/27/2025 CALCIUM 9.4 01/27/2025 PROTEINTOT 7.0 01/27/2025 ALBUMIN 3.6 01/27/2025 ALT 33 01/27/2025 AST 34 01/27/2025 ALKPHOS 81 01/27/2025 BILITOT 0.8 01/27/2025 GLOB 3.4 01/27/2025 AGRATIO 1.1 01/27/2025 BCR 17.0 01/27/2025 ANIONGAP 12.0 01/27/2025 EGFR 94.6 01/27/2025 XR Chest 1 View Result Date: 01/27/2025 Improved aeration of both upper lobes. Persistent bibasilar atelectasis. Electronically Signed: Tank Vogel MD 01/27/2025 6:25 AM EDT Workstation ID: [id number] MRI Brain Without Contrast Result Date: 01/27/2025 1.No evidence of acute or subacute infarct. No acute hemorrhage. 2.Atrophy and chronic small vesselischemic disease noted. 3.Chronic mucosal thickening in the sinuses with fluid levels in the sphenoid and maxillary sinuses that could reflect mild acute disease. Electronically Signed: Tank Vogel MD 01/27/2025 1:30 AM EDT Workstation ID: [id number] EEG Result Date: 01/26/2025 Diffuse cerebral dysfunction of mild degree, most commonly seen due to toxic/metabolic or hypoxemiccause No evidence for epilepsy is seen This report is transcribed using the [employer] dictation system. CT Angiogram Chest Pulmonary Embolism Result Date: 01/26/2025 Impression: Chest: - Within the confines of artifact, no convincing evidence of pulmonary embolism.- Multifocal consolidative and linear airspace disease, most pronounced within the right upper lungwhere there is also areas of groundglass attenuation, suspected to be a combination of pneumonia and atelectasis. - Endotracheal tube in place. Abdomen/pelvis: - Within the confines of artifact, no acute findings. - Morphologic changes of cirrhosis without ascites. - Additional chronic/ancillary findings as above. Electronically Signed: Cj Melendrez MD 01/26/2025 2:17 PM EDT Workstation ID: [id number] CT Abdomen Pelvis With Contrast Result Date: 01/26/2025 Impression: Chest: - Within the confines of artifact, no convincing evidence of pulmonary embolism.- Multifocal consolidative and linear airspace disease, most pronounced within the right upper lungwhere there is also areas of groundglass attenuation, suspected to be a combination of pneumonia and atelectasis. - Endotracheal tube in place. Abdomen/pelvis: - Within the confines of artifact, no acute findings. - Morphologic changes of cirrhosis without ascites. - Additional chronic/ancillary findings as above. Electronically Signed: Cj Melendrez MD 01/26/2025 2:17 PM EDT Workstation ID: [id number] CT Angiogram Head w AI Analysis of LVO Result Date: 01/26/2025 Impression: Normal cerebral perfusion without evidence of core infarct or ischemic tissue at risk. No abrupt cut off/large vessel occlusion, flow-limiting stenosis, dissection, or aneurysm in the head or neck. Consolidation of the right upper lobe. CTA chest exam for complete details. Please refer to dedicated Electronically Signed: Ramin Dow MD 01/26/2025 1:57 PM EDT Workstation ID: [id number] CT CEREBRAL PERFUSION WITH & WITHOUT CONTRAST Result Date: 01/26/2025 Impression: Normal cerebral perfusion without evidence of core infarct or ischemic tissue at risk. No abrupt cut off/large vessel occlusion, flow-limiting stenosis, dissection, or aneurysm in the head or neck. Consolidation of the right upper lobe. CTA chest exam for complete details. Please refer to dedicated Electronically Signed: Ramin Dow MD 01/26/2025 1:57 PM EDT Workstation ID: [id number] CT Angiogram Neck Result Date: 01/26/2025 Impression: Normal cerebral perfusion without evidence of core infarct or ischemic tissue at risk. No abrupt cut off/large vessel occlusion, flow-limiting stenosis, dissection, or aneurysm in the head or neck. Consolidation of the right upper lobe. CTA chest exam for complete details. Please refer to dedicated Electronically Signed: Ramin Dow MD 01/26/2025 1:57 PM EDT Workstation ID: [id number] CT Head Without Contrast Result Date: 01/26/2025 Impression: 1.No acute intracranial abnormality identified. 2.Mild involutional changes. 3.Small air-fluid levels in the bilateral maxillary and ethmoid sinuses. Endotracheal tube is seen. Electronically Signed: Alexandru Campuzano MD 01/26/2025 1:08 PM EDT Workstation ID: [id number] XR Chest 1 View Result Date: 01/26/2025 Impression: Endotracheal tube tip is 1.5 cm above the thor. Electronically Signed: Cj Melendrez MD 01/26/2025 12:31 PM EDT Workstation ID: [id number] Results for orders placed during the hospital encounter of 01/26/25 Adult Transthoracic Echo Complete W/ Cont if Necessary Per Protocol (With Agitated Saline) 01/27/2025 7:13 AM Interpretation Summary Technically difficult/limited study. Left ventricular systolic function is normal. Estimated left ventricular EF = 65% Left ventricular wall thickness is consistent with mild concentric hypertrophy. Left ventricular diastolic function was normal. Aortic sclerosis without significant stenosis or regurgitation. Trace mitral regurgitation. Saline test results are negative. -CTH wo on 01/26/2025 images were personally reviewed and showed no acute ischemic or hemorrhagic stroke -CTA of the head and neck images from 01/26/2025 were personally reviewed and showed no flow limitingstenosis or LVO -MRI brain images from 01/26/2025 were personally reviewed and showed no ischemic or hemorrhagic stroke -Transthoracic echocardiogram from 02/06/2020 report was personally reviewed and showed left ventricular ejection fraction of 65%, no left atrial dilation and negative bubble study -A1c from 01/27/2025 was 5.51% -LDL from 01/27/2025 was 69 -Routine EEG from 01/26/2025 showed diffuse cerebral dysfunction of mild degree Assessment/Plan 69-year-old male with multiple vascular risk factors who presented to [facility] emergency department via EMS from outside clinic. He was noted to have nausea as well as diaphoresis and then become unresponsive. On arrival to the emergency department he was noted to have a GCS of 3 and was immediately intubated. He was not deemed to be an appropriate IV thrombolytic therapy candidate secondary to extended LKW. Not deemed to be an appropriate emergent endovascular therapycandidate secondary to lack of large vessel occlusion on CT perfusion imaging. Antiplatelet FILM SOUND COORDINATOR: Aspirin per EMR review Anticoagulant FILM SOUND COORDINATOR: Unknown #Unresponsiveness #Acute encephalopathy likely multifactorial -Etiology of patient's syncope is unclear. This could possibly be due to toxic/metabolic versus hypoxic etiology. This is less likely to be vascular in nature -CTH wo on 01/26/2025 images were personally reviewed and showed no acute ischemic or hemorrhagic stroke -CTA of the head and neck images from 01/26/2025 were personally reviewed and showed no flow limitingstenosis or LVO -MRI brain images from 01/26/2025 were personally reviewed and showed no ischemic or hemorrhagic stroke -Transthoracic echocardiogram from 02/06/2020 report was personally reviewed and showed left ventricular ejection fraction of 65%, no left atrial dilation and negative bubble study -A1c from 01/27/2025 was 5.51% -LDL from 01/27/2025 was 69 -Routine EEG from 01/26/2025 showed diffuse cerebral dysfunction of mild degree Recommendations -Treat underlying metabolic/toxic causes -From stroke standpoint the patient can continue home DAPT with aspirin 81 mg in addition to [id number] mg for secondary stroke prevention -Patient to continue home atorvastatin 40 mg nightly for secondary stroke prevention. Target LDL level of less than 70 -Target systolic blood pressure goal of normotension -Neurochecks and NIHSS -PT OT TRAY ROOM WORKER to see and assess when appropriate -STAT CTH with any neurologic decline Patient education: call 911 or present to emergency department with any stroke symptom, including unilateral face, arm, or leg weakness, numbness, or paresthesias, unilateral facial droop, speech deficits, dizziness with nausea, vomiting, nystagmus, and incoordination, visual deficits, or severe onset headache. Stroke will sign off. Please call for any further questions or concerns Fritz Cabrales MD, Msc, PhD Vascular Neurologist [facility] documented in this encounter H&P Notes * Nahun Baca MD - 01/26/2025 1:03 PM EDT Chief complaint: Altered mental status Subjective Patient is a 69 y.o. male who was in his primary care physician's office, Dr. Huynh, and had a sudden change in condition. He was there for a checkup and blood draw. I have interviewed his and niece and they were present. They said he suddenly complained of nausea and diaphoresis and had a rapid decrease in mental status. He was brought to the ER and had a GCS of 3 and was intubated. He has a past medical history significant for hypertension, type 2 diabetes mellitus, and dyslipidemia. He had what his family described as a pin stroke several years ago which caused numbness but no loss of consciousness. 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 Workup in the ER so far reveals a negative urinalysis, negative urine drug screen, normal troponin,negative respiratory panel, and generally unremarkable labs. He did not respond to Narcan. He is onno sedating medications at home according to his . His medication list includes aspirin and Plavix but no sedating medications. Imaging consist of a standard CT of the head as well as angiogram and perfusion scan which are all normal. The chest CT reveals some infiltrate and linear changes in the right upper lobe consistent with pneumonia/atelectasis. There are cirrhotic changes in the liver. There is no pulmonary embolism. History Past Medical History: Diagnosis Date Hyperlipidemia 10/16/2017 Hypertension Stroke Type 2 diabetes mellitus 01/26/2025 Past Surgical History: Procedure Laterality Date CARDIAC CATHETERIZATION 2012 HERNIA REPAIR 1985 & 1989 abdominal INTERVENTIONAL RADIOLOGY PROCEDURE Bilateral 06/14/2021 Procedure: Carotid Cerebral Angiogram; Surgeon: Satinder Vazquez MD; Location: [facility]ATH [facility]; Service: Interventional Radiology; Laterality: Bilateral; TUMOR REMOVAL Left FATTY TUMOR REMOVED FROM L SHOULDER No family history on file. Social History Tobacco Use Smoking status: Former Smokeless tobacco: Former Tobacco comments: QUIT SMOKING IN 1981; QUIT CHEWING IN SPRING 2020 Substance Use Topics Alcohol use: Never Drug use: Defer Review of Systems Review of systems could not be obtained due to patient nonverbal. patient intubated. Objective Vital Signs Temp: [97.5 ??F (36.4 ??C)] 97.5 ??F (36.4 ??C) Heart Rate: [61-82] 73 Resp: [10] 10 BP: (138-204)/(74-116) 141/81 FiO2 (%): [60 %-100 %] 60 % Physical Exam: Objective: General Appearance: Ill-appearing. Vital signs: (most recent): Blood pressure 141/81, pulse 73, temperature 97.5 ??F (36.4 ??C), temperature source Axillary, resp. rate 10, height 182.9 cm (72.01 ), weight (!) 150 kg (330 lb), SpO2 96%. HEENT: (Oral ET tube NG tube) Lungs: No rales, wheezes or rhonchi. Heart: Normal rate. Regular rhythm. S1 normal and S2 normal. No murmur, gallop or friction rub. Chest: Symmetric chest wall expansion. Abdomen: Abdomen is soft and non-distended. Bowel sounds are normal. There is no abdominal tenderness. There is no mass. There is no splenomegaly. There is no hepatomegaly. Extremities: There is no deformity or dependent edema. Neurological: GCS score is 3. Pupils: Pupils are equal, round, and reactive to light. Skin: Warm and dry. Results Review: I reviewed the patient's new clinical results. I reviewed the patient's new imaging results and agree with the interpretation. I reviewed the patient's other test results and agree with the interpretation I personally viewed and interpreted the patient's EKG/Telemetry data Assessment & Plan Assessment: Active Hospital Problems Diagnosis Essential hypertension Type 2 diabetes mellitus Obesity, morbid, BMI 40.0-49.9 Hyperlipidemia 69-year-old male with the acute sudden onset of depressed mental status. He had a GCS of 3 on arrival to our ER. He had no unusual symptoms prior to the episode and this was all witnessed by his wifeand staff at the medical clinic where he was for a routine checkup and blood draw. There is no evidence of sedating medications and he has no history of taking these. Imaging of the head is absolutely normal including perfusion and angiography. He does have some infiltrate in his right upper lobe but this may be a secondary process due to aspiration related to his altered mental status. Plan: Neuro ICU admission ABG and adjust ventilator for support Avoid sedatives MRI brain TTE with bubble Frequent neurochecks EEG Maintain blood pressure within standard parameters Fingerstick blood glucose and sliding scale insulin Empiric Zosyn due to apparent aspiration though this could probably be rapidly de-escalated if no ongoing infiltrates Further recommendations per neurology stroke service I discussed the patients findings and my recommendations with family, nursing staff, and Dr Ocampo. Critical Care time spent in direct patient care: 50 minutes (excluding procedure time, if applicable) including high complexity decision making to assess, manipulate, and support vital organ system failure in this individual who has impairment of one or more vital organ systems such that there is ahigh probability of imminent or life threatening deterioration in the patient???s condition. Nahun Baca MD Pulmonary and Critical Care Medicine 01/26/25 14:41 EDT documented in this encounter Consult Notes * Tania Klein RN - 01/31/2025 11:59 AM EDTAssociated Order(s): IP CONSULT TO MANAGER DATA Images from the original note were not included. Diabetes Education Assessment/Teaching Patient Name: Charles Gardner Date of : 1955 Admit Date: 01/26/2025 Assessment Date: 01/31/2025 Flowsheet Row Most Recent Value General Information Referral From: Other (comment) [stroke protocol] Height 182.9 cm (72.01 ) Height Method Estimated Weight 152 kg (335 lb 1.6 oz) Weight Method Estimated Is patient ? n/a Assessment Diabetes History What type of diabetes do you have? Type 2 Length of Diabetes Diagnosis 6 -12 months Current DM knowledge good Do you test your blood sugar at home? no Have you had low blood sugar? (<70mg/dl) yes How often do you have low blood sugar? rare Have you had high blood sugar? (>140mg/dl) no Education Preferences What areas of diabetes would you like to learn about? avoiding high blood sugar, avoiding low bloodsugar, diabetes complications, diet information, exercise information, medications for diabetes, resources on diabetes, testing my blood sugar at home, understanding diabetes Nutrition Information Assessment Topics Healthy Eating - Assessment Needs education Being Active - Assessment Needs education Taking Medication - Assessment Competent Problem Solving - Assessment Needs education Reducing Risk - Assessment Needs education Healthy Coping - Assessment Needs education Monitoring - Assessment Needs education DM Goals Flowsheet Row Most Recent Value DM Education Needs Meter Other (comment) [Does not currently check. Will follow up with PCP.] Blood Glucose Target Range Target ranges per ADA guidelines Medication Oral, Actions, Side effects Problem Solving Hypoglycemia, Hyperglycemia, Sick days, Signs, Symptoms Reducing Risks A1C testing, Lipids, Blood pressure, Eye exam, Dental exam, Foot care, Immunizations Healthy Eating Reviewed meal plan Physical Activity Frequency Discussed exercise importance Healthy Coping Appropriate Motivation Engaged Teaching Method Explanation, Discussion, Handouts Patient Response Verbalized understanding Consult for diabetes education received per stroke protocol. Chart reviewed. Pt was seen at bedsidetoday with family member present. Permission given for visit. Discussed and taught Mr. Gardner and family member about type 2 diabetes self- management, risk factors, and importance of blood glucose control to reduce complications. Target blood glucose readings and A1c goals per ADA were reviewed. Reviewed with patient current A1c 5.51 and discussed its significance. Reviewed the following ADA survival skill concepts with pt: Meal planning: Discussed pts current eating pattern and potential strategies to help improve it. Suggested ???the plate method?? as a potential healthy eating plan and reviewed this with pt. Safe medication administration: Reviewed pts current medication regimen. Pt taking jardiance and metformin. Encouraged pt to take medications as prescribed and contact provider or pharmacist if they are experiencing side effects. Monitoring (timing and technique): Encouraged pt to monitor blood sugar at home 1-2 times per day and to call PCP if blood sugar is trending high. Discussed benefits of SMBG/CGMS to help guide pt andprovider decision making. Encouraged to keep record of blood glucose readings to take to follow up appointment with PCP. Prevention and treatment of hypoglycemia and hyperglycemia: Signs, symptoms, and treatment of hypoglycemia and hyperglycemia discussed with pt. Reviewed prevention strategies such as consistent eating pattern and taking medications as directed. Pt is able to teach back appropriate treatment of hypoglycemia using the rule of 15s after receiving instruction. Sick day management: Reviewed general sick day guidelines with pt, including drinking plenty of water, keeping simple carbs handy such as jell-o or popsicles, checking blood glucose more often (every2-4 hours or as directed by provider), and if/when ketone testing is appropriate. Encouraged pt to make a sick-day kit at home. Physical activity: Reviewed benefits of physical activity for diabetes management and overall health. Encouraged pt to begin in 10 min increments to build up to recommended 150 minute per week after speaking with doctor about which activities may be right for them. Follow-up care: Reviewed importance of ongoing follow-up with provider. Reviewed importance of annual physical exams, annual eye exams, regular dental exams, daily foot examination, and encouraged patient to discuss immunization needs with provider. Pt encouraged to attend scheduled appointments. Provided information about outpatient diabetes education classes at [facility]. Provided patient with copy of [facility] Life with Diabetes handout. Patient does not qualify for the follow up stroke class based on the exclusion criteria of MRI negative for acute infarct per MD note. Thank you for this consult. Total time spent reviewing chart, preparing education/materials, providing education at bedside, and coordinating care approx 30 minutes. Electronically signed by: Tania Klein RN 01/31/25 11:59 EDT * Yennifer Gonzalez - 01/27/2025 2:44 PM EDTAssociated Order(s): IP CONSULT TO ADVANCE CARE PLANNING Family requested information on living verma. I provided the information to the spouse with an explanation of the two parts of a living will. She understands that the patient will have to be awake and aware before filling out the document. * Milli Kenyon RD, [facility] - 01/27/2025 2:19 PM EDTAssociated Order(s): IP CONSULT TO NUTRITION SERVICES Clinical Nutrition Patient Name: Charles Gardner Date of : 1955 Date of Encounter: 01/27/25 14:19 EDT Admission date: 01/26/2025 Reason for Visit: Physician consult, EN Assessment Nutrition Assessment Admission Diagnosis: Altered mental status [R41.82] Problem List: Altered mental status Hyperlipidemia Essential hypertension Type 2 diabetes mellitus Obesity, morbid, BMI 40.0-49.9 PMH: He has a past medical history of Hyperlipidemia (10/16/2017), Hypertension, Stroke, and Type 2diabetes mellitus (01/26/2025). PSH: He has a past surgical history that includes Hernia repair (1985 & 1989); Cardiac catheterization (2011); Tumor removal (Left); and Interventional radiology procedure (Bilateral, 06/14/2021). Applicable Nutrition History: Labs Labs Reviewed: Yes Results from last 7 days Lab Units 01/27/25 0312 01/26/25 1148 01/26/25 1142 GLUCOSE mg/dL 121* -- 120* BUN mg/dL 14.8 -- 13.3 CREATININE mg/dL 0.87 1.00 0.89 SODIUM mmol/L 138 -- 138 CHLORIDE mmol/L 105 -- 104 POTASSIUM mmol/L 3.9 -- 4.1 PHOSPHORUS mg/dL 3.6 -- -- MAGNESIUM mg/dL 2.1 -- 2.1 ALT (SGPT) U/L 33 -- 35 LACTATE mmol/L -- -- 1.8 Results from last 7 days Lab Units 01/27/25 0312 01/26/25 1142 ALBUMIN g/dL 3.6 4.0 CHOLESTEROL mg/dL 137 -- TRIGLYCERIDES mg/dL 104 -- Results from last 7 days Lab Units 01/27/25 1158 01/27/25 0529 01/26/25 2339 01/26/25 1639 01/26/25 1148 GLUCOSE mg/dL 131* 125 128 98 120 Lab Results Lab Value Date/Time HGBA1C 5.51 01/27/2025 0312 Results from last 7 days Lab Units 01/26/25 1142 PROBNP pg/mL 93.0 Medications Medications Reviewed: yes Scheduled Meds:aspirin, 81 mg, Oral, Daily Or aspirin, 300 mg, Rectal, Daily atorvastatin, 80 mg, Oral, Nightly heparin (porcine), 5,000 Units, Subcutaneous, Q8H insulin regular, 2-9 Units, Subcutaneous, Q6H iopamidol, 100 mL, Intravenous, Once in imaging levothyroxine sodium, 100 mcg, Intravenous, Daily miconazole, 1 Application, Topical, Q12H mupirocin, 1 Application, Each Nare, BID pantoprazole, 40 mg, Intravenous, Q24H piperacillin-tazobactam, 4.5 g, Intravenous, Q8H senna-docusate sodium, 2 tablet, Oral, BID sodium chloride, 10 mL, Intravenous, Q12H Continuous Infusions:dexmedetomidine, 0.2-1.5 mcg/kg/hr, Last Rate: 0.8 mcg/kg/hr (01/27/25 1226) PRN Meds:. senna-docusate sodium AND polyethylene glycol AND bisacodyl AND bisacodyl dextrose dextrose glucagon (human recombinant) nitroglycerin sodium chloride sodium chloride sodium chloride Intake/Ouptut 24 hrs (700 - 699) I&O's Reviewed: yes Intake & Output (last day) 01/26 I.V. (mL/kg) 419.5 (2.8) Total Intake(mL/kg) 419.5 (2.8) Urine (mL/kg/hr) 1750 Total Output 1750 Net -1330.5 Anthropometrics Height: Height: 182.9 cm (72.01 ) Last Filed Weight: Weight: (!) 152 kg (335 lb 1.6 oz) (01/27/25 06) Method: Weight Method: Estimated BMI: BMI (Calculated): 45.4 UBW: ~330 lb Weight change: No significant changes Nutrition Focused Physical Exam Date: 01/27 Pt does not meet criteria for malnutrition diagnosis, at this time. Subjective Reported/Observed/Food/Nutrition Related History: Patient presented with AMS, became unresponsive at MD office for unknown reason. Remains intubated and sedated. Unable to extubate today, plan for NG placement/EN. Needs Assessment Date: 01/27 Height used:Height: 182.9 cm (72.01 ) Weights used: 152 kg ABW, 77.6 kg IBW Estimated Calorie needs: ~2300 Kcal/day Method: 15-16 Kcals/KG 1773-4577 Method: MSJ 2334 Method: PSU (01/27 Tmax-37.5 Ve-8.5) 2303 Estimated Protein needs: ~155 g PRO/day Method: 2-2.5 g/Kg IBW = 155-194 Estimated Fluid needs: ~ ml/day Per clinical status Current Nutrition Prescription PO: NPO Diet NPO Type: Tube Feeding Oral Nutrition Supplement: Intake: N/A Assessment & Plan Nutrition Diagnosis Date: 01/27 Updated: Problem Inadequate oral intake Etiology AMS requiring intubation and mechanical ventilation Signs/Symptoms NPO Status: New Goal: Nutrition to support treatment and Initiate EN, Establish EN tolerance Nutrition Intervention Follow treatment progress, Care plan reviewed, Nutrition support order placed RD recommends the following for Nutrition Support: Initiate continuous EN regimen of Peptamen AF at X ml/hr and advance by X ml/hr Q X hr as toleratedto goal rate of 85 ml/hr, water flushes 10 ml/hr Goal regimen: EN: Peptamen AF Goal Rate: 85 ml/hr Water Flushes: 10 ml/hr Modular: Prosource-no carb 2/day Route: pending Tube: Pending At goal over: 20Hrs/day Rx will supply: Goal Volume 1700 mL/day Flush Volume 200 mL/day Energy 2160 Kcal/day 94 % Est Need Protein 159 g/day 103 % Est Need Fiber 10 g/day Water in EN 1377 mL Total Water 1577 mL Meet DRI Yes Monitoring/Evaluation: Per protocol, I&O, Pertinent labs, EN delivery/tolerance, Weight, GI status, Symptoms, POC/GOC,Hemodynamic stability Milli Kenyon RD, CNSC Time Spent: 30m * Felisa Moore RN - 01/27/2025 10:17 AM EDT Diabetes Education Patient Name: Charles Gardner Date of : 1955 Admit Date: 01/26/2025 Consult received for diabetes education per stroke protocol. Chart reviewed. Medication list includes Jardiance and Metformin. A1c is 5.51%. Patient currently intubated. Diabetes education will follow and see as able. Electronically signed by: Felisa Moore RN 01/27/25 10:17 EDT * Diana Garcia APRN - 01/26/2025 1:11 PM EDT Stroke Consult Note Patient Name: Charles Gardner Age: 69 y.o. Sex: male : 1955 Primary Care Physician: Provider, No Known Referring Physician: Dr Daniel Ocampo TIME STROKE TEAM CALLED: 1310 EST TIME PATIENT SEEN: 1320 EST Handedness: Unknown Race: Chief Complaint/Reason for Consultation: Unresponsiveness HPI: Charles Gardner is a 69-year-old male with a past medical history significant for hypertension, stroke (at data deficient), morbid obesity, hyperlipidemia, and T2DM. He presented to [facility] emergency department via EMS with complaints of unresponsiveness. He was noted to be at an outside clinic earlier today when he had complaints of nausea and diaphoresis. Shortly after he was noted to go unresponsive and EMS was called at that time. On arrival to our facility he was noted to have a GCS of 3 and was intubated on arrival. Stat CT imaging was ordered and completed by the ED physician. Urology was consulted for further assistance in workup and evaluation. CTA headand neck as well as CT perfusion were also completed. CT perfusion was negative for any area of reversible ischemia. CTA head and neck were completed and negative for any significant stenosis or large vessel occlusion. Unfortunately the patient was intubated prior to my examination so he is essentially unresponsive and not following any commands. Workup and evaluation will be completed in the neuro ICU. Last Known Normal Date/Time: 1030 EST Review of Systems Unable to perform ROS: Intubated Past Medical History: Diagnosis Date Hypertension Stroke Past Surgical History: Procedure Laterality Date CARDIAC CATHETERIZATION 2012 HERNIA REPAIR 1985 & 1989 abdominal INTERVENTIONAL RADIOLOGY PROCEDURE Bilateral 06/14/2021 Procedure: Carotid Cerebral Angiogram; Surgeon: Satinder Vazquez MD; Location: [facility]; Service: Interventional Radiology; Laterality: Bilateral; TUMOR REMOVAL Left FATTY TUMOR REMOVED FROM L SHOULDER No family history on file. Social History Socioeconomic History Marital status: Tobacco Use Smoking status: Former Smokeless tobacco: Former Tobacco comments: QUIT SMOKING IN 1981; QUIT CHEWING IN SPRING 2020 Substance and Sexual Activity Alcohol use: Never Drug use: Defer Sexual activity: Defer No Known Allergies Prior to Admission medications Medication Sig Start Date End Date Taking? Authorizing Provider aspirin (aspirin) 81 MG EC tablet Take 81 mg by mouth Every Night. Joshua Bailey MD atorvastatin (LIPITOR) 40 MG tablet Take 40 mg by mouth Daily. 04/23/21 Joshua Bailey MD carvedilol (COREG) 6.25 MG tablet Take 6.25 mg by mouth 2 (Two) Times a Day. 04/23/21 Joshua Bailey MD Cholecalciferol 25 MCG (1000 UT) capsule Take 1,000 Units by mouth 2 (Two) Times a Day. Joshua Bailey MD clopidogrel (PLAVIX) 75 MG tablet Take 75 mg by mouth Every Morning. Joshua Bailey MD furosemide (LASIX) 40 MG tablet Take 40 mg by mouth Daily. Joshua Bailey MD multivitamin (MULTI-VITAMIN DAILY PO) Take 1 tablet by mouth Daily. Joshua Bailey MD Heart Rate: [61-82] 82 Resp: [10] 10 BP: (138-193)/(74-111) 151/90 Neurological Exam Mental Status Unresponsive to painful stimuli. Intubated and sedated. Cranial Nerves CN III, IV, : Right pupil: Pinpoint. Left pupil: Pinpoint. CN VII: Right: There is no facial weakness. Left: There is no facial weakness. Motor Sedated. Sensory No withdrawal to deep painful stimuli in any extremity at this time. Coordination Unable to assess. Gait Unable to assess. Physical Exam Constitutional: General: He is not in acute distress. Appearance: He is obese. He is ill-appearing. HENT: Head: Normocephalic. Mouth/Throat: Pharynx: Oropharynx is clear. Cardiovascular: Rate and Rhythm: Normal rate and regular rhythm. Pulmonary: Comments: ET Tube in place Skin: General: Skin is warm and dry. Neurological: Mental Status: He is unresponsive. Acute Stroke Data Thrombolytic Inclusion / Exclusion Criteria Time: 13:11 EDT Person Administering Scale: Diana Garcia APRN YES NO INCLUSION CRITERIA CLASS I [] [x] Suspected diagnosis of acute ischemic stroke with measureable neurological deficit. Low NIHSS with disabling stroke symptoms. [] [x] Onset of stroke symptoms < 3 hours before beginning treatment >/ 18 years old Stroke symptom onset = time patient was last seen well or without symptoms (LKW) [] [x] Onset of symptoms between 3-4.5 hours: >/= 80 years old (safe Class IIa) with history of both diabetes and prior CVA (reasonable Class IIb) AND NIHSS </= 25 *If not eligible for IV Thrombolytic consider neuro intervention for LKW within 24 hours YES NO EXCLUSION CRITERIA (CONTRAINDICATIONS) CLASS III EVIDENCE HARM [] [] Blood pressure >185/110 medically refractory to IV medications [] [] Active bleeding at a non-compressible site [] [] Active intracranial hemorrhage (ICH) [] [] Symptoms suggestive of subarachnoid hemorrhage (SAH) [] [] GI bleed within 21 days [] [] Ischemic stroke within 3 months [] [] Severe head trauma within 3 months [] [] Intracranial or intraspinal surgery within 3 months [] [] Current GI malignancy [] [] Intracranial neoplasm [] [] Infective endocarditis [] [] Aortic arch dissection [] [] Active coagulopathy with INR >1.7, platelets <100,000, PTT > 40 sec, PT > 15 sec *For warfarin, administration can begin before blood tests resulted. Discontinue for above values. [] [] Treatment dose* of LMWH (Lovenox) in last 24 hours *prophylactic dosages are not a contraindication [] [] Concurrent use of antiplatelet agents' glycoprotein inhibitors IIb/IIIa (Integrilin, etc.) [] [] Thrombin or factor Xa inhibitors (Eliquis, Xarelto, Arixtra) taken in last 48 hours YES NO CLASS II: AIS WITH THE FOLLOWING CONDITIONS - TREATMENT RISKS SHOULD BE WEIGHED AGAINST POSSIBLE BENEFITS. [] [] Major trauma in last 14 days, recent major surgery in last 14 days, intracranial arterial dissection, giant unruptured and unsecured intracranial aneurysm, pericarditis [] [] The risks, benefits, and alternatives have been discussed with the patient or family related to the administration of IV thrombolytic therapy for stroke symptoms. [] [] I have discussed and reviewed the patient's case and imaging with the attending prior to IV thrombolytic therapy. TIME NA Time IV thrombolytic administered Hospital Meds: Scheduled- senna-docusate sodium, 2 tablet, Oral, BID Infusions- fentanyl 10 mcg/mL, 50-300 mcg/hr, Last Rate: 100 mcg/hr (01/26/25 1306) midazolam, 1-10 mg/hr, Last Rate: 2 mg/hr (01/26/25 1245) PRNs- senna-docusate sodium AND polyethylene glycol AND bisacodyl AND bisacodyl etomidate rocuronium sodium chloride Functional Status Prior to Current Stroke/Jalyn Score: 0 NIH Stroke Scale Time: 13:11 EDT Person Administering Scale: Diana Garcia APRN 1a Level of consciousness: 3=responds only with reflex motor or automatic effects or totally unresponsive, flaccid, areflexic 1b. LOC questions: 2=Answers neither task correctly 1c. LOC commands: 2=Performs neither task correctly 2. Best Gaze: 0=normal 3. Visual: 0=No visual loss 4. Facial Palsy: 0=Normal symmetric movement 5a. Motor left arm: 4=No movement 5b. Motor right arm: 4=No movement 6a. motor left le=No movement 6b Motor right le=No movement 7. Limb Ataxia: 0=Absent 8. Sensory: 2=Severe to total sensory loss; patient is not aware of being touched in face, arm, leg 9. Best Language: 3=Mute, global aphasia; no usable speech or auditory comprehension 10. Dysarthria: 2=Severe; patient speech is so slurred as to be unintelligible in the absence of orour of proportion to any dysphagia, or is mute/anarthric 11. Extinction and Inattention: 0=No abnormality Total: 30 Results Reviewed: I have personally reviewed current lab, radiology, and data and agree with results. CT Angiogram Chest Pulmonary Embolism Result Date: 01/26/2025 Impression: Chest: - Within the confines of artifact, no convincing evidence of pulmonary embolism.- Multifocal consolidative and linear airspace disease, most pronounced within the right upper lungwhere there is also areas of groundglass attenuation, suspected to be a combination of pneumonia and atelectasis. - Endotracheal tube in place. Abdomen/pelvis: - Within the confines of artifact, no acute findings. - Morphologic changes of cirrhosis without ascites. - Additional chronic/ancillary findings as above. Electronically Signed: Cj Melendrez MD 01/26/2025 2:17 PM EDT Workstation ID: [id number] CT Abdomen Pelvis With Contrast Result Date: 01/26/2025 Impression: Chest: - Within the confines of artifact, no convincing evidence of pulmonary embolism.- Multifocal consolidative and linear airspace disease, most pronounced within the right upper lungwhere there is also areas of groundglass attenuation, suspected to be a combination of pneumonia and atelectasis. - Endotracheal tube in place. Abdomen/pelvis: - Within the confines of artifact, no acute findings. - Morphologic changes of cirrhosis without ascites. - Additional chronic/ancillary findings as above. Electronically Signed: Cj Melendrez MD 01/26/2025 2:17 PM EDT Workstation ID: [id number] CT Angiogram Head w AI Analysis of LVO Result Date: 01/26/2025 Impression: Normal cerebral perfusion without evidence of core infarct or ischemic tissue at risk. No abrupt cut off/large vessel occlusion, flow-limiting stenosis, dissection, or aneurysm in the head or neck. Consolidation of the right upper lobe. CTA chest exam for complete details. Please refer to dedicated Electronically Signed: Ramin Dow MD 01/26/2025 1:57 PM EDT Workstation ID: [id number] CT CEREBRAL PERFUSION WITH & WITHOUT CONTRAST Result Date: 01/26/2025 Impression: Normal cerebral perfusion without evidence of core infarct or ischemic tissue at risk. No abrupt cut off/large vessel occlusion, flow-limiting stenosis, dissection, or aneurysm in the head or neck. Consolidation of the right upper lobe. CTA chest exam for complete details. Please refer to dedicated Electronically Signed: Ramin Dow MD 01/26/2025 1:57 PM EDT Workstation ID: [id number] CT Angiogram Neck Result Date: 01/26/2025 Impression: Normal cerebral perfusion without evidence of core infarct or ischemic tissue at risk. No abrupt cut off/large vessel occlusion, flow-limiting stenosis, dissection, or aneurysm in the head or neck. Consolidation of the right upper lobe. CTA chest exam for complete details. Please refer to dedicated Electronically Signed: Ramin Dow MD 01/26/2025 1:57 PM EDT Workstation ID: [id number] CT Head Without Contrast Result Date: 01/26/2025 Impression: 1.No acute intracranial abnormality identified. 2.Mild involutional changes. 3.Small air-fluid levels in the bilateral maxillary and ethmoid sinuses. Endotracheal tube is seen. Electronically Signed: Alexandru Campuzano MD 01/26/2025 1:08 PM EDT Workstation ID: [id number] XR Chest 1 View Result Date: 01/26/2025 Impression: Endotracheal tube tip is 1.5 cm above the thor. Electronically Signed: Cj Melendrez MD 01/26/2025 12:31 PM EDT Workstation ID: [id number] Telemetry Scan Final Result ECG 12 Lead Altered Mental Status Preliminary Result Test Reason : Altered Mental Status Blood Pressure : */* mmHG Vent. Rate : 65 BPM Atrial Rate : 65 BPM P-R Int : 206 ms QRS Dur : 106 ms QT Int : 416 ms P-R-T Axes : 54 39 29 degrees QTcB Int : 432 ms Normal sinus rhythm Normal ECG No previous ECGs available Referred By: edmd Confirmed By: ECG 12 Lead Altered Mental Status (Results Pending) Lab Results Component Value Date GLUCOSE 120 (H) 01/26/2025 BUN 13.3 01/26/2025 CREATININE 1.00 01/26/2025 NA 138 01/26/2025 K 4.1 01/26/2025 CL 104 01/26/2025 CALCIUM 9.9 01/26/2025 PROTEINTOT 7.6 01/26/2025 ALBUMIN 4.0 01/26/2025 ALT 35 01/26/2025 AST 34 01/26/2025 ALKPHOS 86 01/26/2025 BILITOT 0.6 01/26/2025 GLOB 3.6 01/26/2025 AGRATIO 1.1 01/26/2025 BCR 14.9 01/26/2025 ANIONGAP 10.0 01/26/2025 EGFR 82.5 01/26/2025 WBC Date Value Ref Range Status 01/26/2025 6.32 3.40 - 10.80 10*3/mm3 Final RBC Date Value Ref Range Status 01/26/2025 4.49 4.14 - 5.80 10*6/mm3 Final Hemoglobin Date Value Ref Range Status 01/26/2025 15.6 12.0 - 17.0 g/dL Final Comment: Serial Number: [id number] 01/26/2025 15.2 13.0 - 17.7 g/dL Final Hematocrit Date Value Ref Range Status 01/26/2025 46 38 - 51 % Final 01/26/2025 45.7 37.5 - 51.0 % Final MCV Date Value Ref Range Status 01/26/2025 101.8 (H) 79.0 - 97.0 fL Final MCH Date Value Ref Range Status 01/26/2025 33.9 (H) 26.6 - 33.0 pg Final MCHC Date Value Ref Range Status 01/26/2025 33.3 31.5 - 35.7 g/dL Final RDW Date Value Ref Range Status 01/26/2025 13.0 12.3 - 15.4 % Final RDW-SD Date Value Ref Range Status 01/26/2025 48.6 37.0 - 54.0 fl Final MPV Date Value Ref Range Status 01/26/2025 9.5 6.0 - 12.0 fL Final Platelets Date Value Ref Range Status 01/26/2025 146 140 - 450 10*3/mm3 Final Neutrophil % Date Value Ref Range Status 01/26/2025 61.6 42.7 - 76.0 % Final Lymphocyte % Date Value Ref Range Status 01/26/2025 23.9 19.6 - 45.3 % Final Monocyte % Date Value Ref Range Status 01/26/2025 7.9 5.0 - 12.0 % Final Eosinophil % Date Value Ref Range Status 01/26/2025 5.5 0.3 - 6.2 % Final Basophil % Date Value Ref Range Status 01/26/2025 0.8 0.0 - 1.5 % Final Immature Grans % Date Value Ref Range Status 01/26/2025 0.3 0.0 - 0.5 % Final Neutrophils, Absolute Date Value Ref Range Status 01/26/2025 3.89 1.70 - 7.00 10*3/mm3 Final Lymphocytes, Absolute Date Value Ref Range Status 01/26/2025 1.51 0.70 - 3.10 10*3/mm3 Final Monocytes, Absolute Date Value Ref Range Status 01/26/2025 0.50 0.10 - 0.90 10*3/mm3 Final Eosinophils, Absolute Date Value Ref Range Status 01/26/2025 0.35 0.00 - 0.40 10*3/mm3 Final Basophils, Absolute Date Value Ref Range Status 01/26/2025 0.05 0.00 - 0.20 10*3/mm3 Final Immature Grans, Absolute Date Value Ref Range Status 01/26/2025 0.02 0.00 - 0.05 10*3/mm3 Final nRBC Date Value Ref Range Status 01/26/2025 0.0 0.0 - 0.2 /100 WBC Final Lab 01/26/25 1142 LACTATE 1.8 Assessment/Plan: 69-year-old male with multiple vascular risk factors who presented to [facility] emergency department via EMS from outside clinic. He was noted to have nausea as well as diaphoresis and then become unresponsive. On arrival to the emergency department he was noted to have a GCS of 3 and was immediately intubated. He was not deemed to be an appropriate IV thrombolytic therapy candidate secondary to extended LKW. Not deemed to be an appropriate emergent endovascular therapycandidate secondary to lack of large vessel occlusion on CT perfusion imaging. 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 Thanks for the consult and care of this patient. Plan of care discussed with ICU medicine team as well as the patient's family who was present at the bedside. Please call with any further questions or concerns. Diana Garcia, REFRIGERATING ENGINEER Stroke neurology January 26, 2025 documented in this encounter Nursing Notes * Talisha Mirza OT - 02/02/2025 11:26 AM EDT Goal Outcome Evaluation: Plan of Care Reviewed With: patient, spouse Progress: improving Outcome Evaluation: Patient demonstrating improvements w/ bed mobility, transfers and activity tolerance. O2 sats maintained > 90% on RA. Continue to progress per current POC. * Shantel Gardner RN - 02/02/2025 6:27 AM EDT Problem: Mechanical Ventilation Invasive Goal: Effective Communication Outcome: Progressing Intervention: Ensure Effective Communication Recent Flowsheet Documentation Taken 02/02/2025 0600 by Shantel Gardner RN Communication Enhancement Strategies: call light answered in person device use encouraged Taken 02/02/2025 0400 by Shantel Gardner RN Communication Enhancement Strategies: call light answered in person device use encouraged Taken 02/02/2025 0200 by Shantel Gardner RN Communication Enhancement Strategies: call light answered in person device use encouraged Taken 02/02/2025 0000 by Shantel Gardner RN Communication Enhancement Strategies: call light answered in person device use encouraged Taken 02/01/2025 2200 by Shantel Gardner RN Communication Enhancement Strategies: call light answered in person device use encouraged Taken 02/01/2025 2000 by Shantel Gardner RN Trust Relationship/Rapport: care explained choices provided Diversional Activities: television Family/Support System Care: self-care encouraged support provided Communication Enhancement Strategies: call light answered in person device use encouraged Goal: Optimal Device Function Outcome: Progressing Intervention: Optimize Device Care and Function Recent Flowsheet Documentation Taken 02/02/2025 0600 by Shantel Gardner RN Airway Safety Measures: oxygen flowmeter at bedside Taken 02/02/2025 0400 by Shantel Gardner RN Airway Safety Measures: oxygen flowmeter at bedside Taken 02/02/2025 0200 by Shantel Gardner RN Airway Safety Measures: oxygen flowmeter at bedside Taken 02/02/2025 0000 by Shantel Gardner RN Airway Safety Measures: oxygen flowmeter at bedside Taken 02/01/2025 2200 by Shantel Gardner RN Airway Safety Measures: oxygen flowmeter at bedside Taken 02/01/20251999 by Shantel Gardner RN Airway Safety Measures: oxygen flowmeter at bedside suction at bedside Goal: Mechanical Ventilation Liberation Outcome: Progressing Intervention: Promote Extubation and Mechanical Ventilation Liberation Recent Flowsheet Documentation Taken 02/02/2025 0600 by Shantel Gardner RN Environmental Support: calm environment promoted Sleep/Rest Enhancement: awakenings minimized consistent schedule promoted Taken 02/02/2025 0400 by Shantel Gardner RN Environmental Support: calm environment promoted Sleep/Rest Enhancement: awakenings minimized consistent schedule promoted Taken 02/02/2025 0200 by Shantel Gardner RN Environmental Support: calm environment promoted Sleep/Rest Enhancement: awakenings minimized consistent schedule promoted Taken 02/02/2025 0000 by Shantel Gardner RN Environmental Support: calm environment promoted Sleep/Rest Enhancement: awakenings minimized consistent schedule promoted Taken 02/01/2025 2200 by Shantel Gardner RN Environmental Support: calm environment promoted Sleep/Rest Enhancement: awakenings minimized consistent schedule promoted Taken 02/01/20251999 by Shantel Gardner RN Environmental Support: calm environment promoted Sleep/Rest Enhancement: awakenings minimized consistent schedule promoted Medication Review/Management: medications reviewed Goal: Optimal Nutrition Delivery Outcome: Progressing Goal: Absence of Device-Related Skin and Tissue Injury Outcome: Progressing Intervention: Maintain Skin and Tissue Health Recent Flowsheet Documentation Taken 02/02/2025 0600 by Shantel Gardner RN Device Skin Pressure Protection: absorbent pad utilized/changed adhesive use limited positioning supports utilized pressure points protected Taken 02/02/2025 0400 by Shantel Gardner RN Device Skin Pressure Protection: absorbent pad utilized/changed adhesive use limited positioning supports utilized pressure points protected Taken 02/02/2025 0200 by Shantel Gardner RN Device Skin Pressure Protection: absorbent pad utilized/changed adhesive use limited positioning supports utilized pressure points protected Taken 02/02/2025 0000 by Shantel Gardner RN Device Skin Pressure Protection: absorbent pad utilized/changed adhesive use limited positioning supports utilized pressure points protected Taken 02/01/2025 2200 by Shantel Gardner RN Device Skin Pressure Protection: absorbent pad utilized/changed adhesive use limited positioning supports utilized pressure points protected Taken 02/01/20251999 by Shantel Gardner RN Device Skin Pressure Protection: tubing/devices free from skin contact pressure points protected positioning supports utilized Goal: Absence of Ventilator-Induced Lung Injury Outcome: Progressing Intervention: Prevent Ventilator-Associated Pneumonia Recent Flowsheet Documentation Taken 02/02/2025 0600 by Shantel Gardner RN Head of Bed (HOB) Positioning: HOB elevated Taken 02/02/2025 0400 by Shantel Gardner RN Head of Bed (HOB) Positioning: HOB elevated Taken 02/02/2025 0200 by Shantel Gardner RN Head of Bed (HOB) Positioning: HOB elevated Taken 02/02/2025 0000 by Shantel Gardner RN Head of Bed (HOB) Positioning: HOB elevated Taken 02/01/2025 2200 by Shantel Gardner RN Head of Bed (HOB) Positioning: HOB elevated Taken 02/01/2025 2000 by Shantel Gardner RN Head of Bed (HOB) Positioning: HOB elevated Problem: Adult Inpatient Plan of Care Goal: Plan of Care Review Outcome: Progressing Goal: Patient-Specific Goal (Individualized) Outcome: Progressing Goal: Absence of Hospital-Acquired Illness or Injury Outcome: Progressing Intervention: Identify and Manage Fall Risk Recent Flowsheet Documentation Taken 02/02/2025 0600 by Shantel Gardner RN Safety Promotion/Fall Prevention: activity supervised assistive device/personal items within reach clutter free environment maintained fall prevention program maintained lighting adjusted nonskid shoes/slippers when out of bed room organization consistent safety round/check completed Taken 02/02/2025 0400 by Shantel Gardner RN Safety Promotion/Fall Prevention: activity supervised assistive device/personal items within reach clutter free environment maintained fall prevention program maintained lighting adjusted nonskid shoes/slippers when out of bed room organization consistent safety round/check completed Taken 02/02/2025 0200 by Shantel Gardner RN Safety Promotion/Fall Prevention: activity supervised assistive device/personal items within reach clutter free environment maintained fall prevention program maintained lighting adjusted nonskid shoes/slippers when out of bed room organization consistent safety round/check completed Taken 02/02/2025 0000 by Shantel Gardner RN Safety Promotion/Fall Prevention: activity supervised assistive device/personal items within reach clutter free environment maintained fall prevention program maintained lighting adjusted nonskid shoes/slippers when out of bed room organization consistent safety round/check completed Taken 02/01/2025 2200 by Shantel Gardner RN Safety Promotion/Fall Prevention: activity supervised assistive device/personal items within reach clutter free environment maintained fall prevention program maintained lighting adjusted nonskid shoes/slippers when out of bed room organization consistent safety round/check completed Taken 02/01/20251999 by Shantel Gardner RN Safety Promotion/Fall Prevention: activity supervised assistive device/personal items within reach clutter free environment maintained fall prevention program maintained lighting adjusted nonskid shoes/slippers when out of bed room organization consistent safety round/check completed Intervention: Prevent Skin Injury Recent Flowsheet Documentation Taken 02/02/2025 0600 by Shantel Gardner RN Body Position: position changed independently sitting up in bed Skin Protection: incontinence pads utilized skin sealant/moisture barrier applied silicone border foam - sacrum/coccyx Taken 02/02/2025 0400 by Shantel Gardner RN Body Position: position changed independently supine Skin Protection: incontinence pads utilized skin sealant/moisture barrier applied silicone border foam - sacrum/coccyx Taken 02/02/2025 0200 by Shantel Gardner RN Body Position: position changed independently turned right Skin Protection: incontinence pads utilized skin sealant/moisture barrier applied silicone border foam - sacrum/coccyx Taken 02/02/2025 0000 by Shantel Gardner RN Body Position: position changed independently supine Skin Protection: incontinence pads utilized skin sealant/moisture barrier applied silicone border foam - sacrum/coccyx Taken 02/01/2025 2200 by Shantel Gardner RN Body Position: position changed independently sitting up in bed Skin Protection: incontinence pads utilized skin sealant/moisture barrier applied silicone border foam - sacrum/coccyx Taken 02/01/20251999 by Shantel Gardner RN Body Position: position changed independently sitting up in bed Skin Protection: incontinence pads utilized skin sealant/moisture barrier applied silicone border foam - sacrum/coccyx Intervention: Prevent and Manage VTE (Venous Thromboembolism) Risk Recent Flowsheet Documentation Taken 02/01/20251999 by Shantel Gardner RN VTE Prevention/Management: (see mar) bilateral SCDs (sequential compression devices) off patient refused intervention Intervention: Prevent Infection Recent Flowsheet Documentation Taken 02/02/2025 0600 by Shantel Gardner RN Infection Prevention: cohorting utilized environmental surveillance performed equipment surfaces disinfected hand hygiene promoted rest/sleep promoted Taken 02/02/2025 0400 by Shantel Gardner RN Infection Prevention: cohorting utilized environmental surveillance performed equipment surfaces disinfected hand hygiene promoted rest/sleep promoted Taken 02/02/2025 0200 by Shantel Gardner RN Infection Prevention: cohorting utilized environmental surveillance performed equipment surfaces disinfected hand hygiene promoted rest/sleep promoted Taken 02/02/2025 0000 by Shantel Gardner RN Infection Prevention: cohorting utilized environmental surveillance performed equipment surfaces disinfected hand hygiene promoted rest/sleep promoted Taken 02/01/2025 2200 by Shantel Gardner RN Infection Prevention: cohorting utilized environmental surveillance performed equipment surfaces disinfected hand hygiene promoted rest/sleep promoted Taken 02/01/20251999 by Shantel Gardner RN Infection Prevention: cohorting utilized environmental surveillance performed equipment surfaces disinfected hand hygiene promoted rest/sleep promoted Goal: Optimal Comfort and Wellbeing Outcome: Progressing Intervention: Provide Person-Centered Care Recent Flowsheet Documentation Taken 02/01/20251999 by Shantel Gardner RN Trust Relationship/Rapport: care explained choices provided Goal: Readiness for Transition of Care Outcome: Progressing Problem: Skin Injury Risk Increased Goal: Skin Health and Integrity Outcome: Progressing Intervention: Optimize Skin Protection Recent Flowsheet Documentation Taken 02/02/2025 0600 by Shantel Gardner RN Activity Management: activity encouraged Pressure Reduction Techniques: frequent weight shift encouraged pressure points protected weight shift assistance provided Head of Bed (HOB) Positioning: HOB elevated Pressure Reduction Devices: heel offloading device utilized positioning supports utilized Skin Protection: incontinence pads utilized skin sealant/moisture barrier applied silicone border foam - sacrum/coccyx Taken 02/02/2025 0400 by Shantel Gardner RN Activity Management: activity encouraged Pressure Reduction Techniques: frequent weight shift encouraged pressure points protected weight shift assistance provided Head of Bed (HOB) Positioning: HOB elevated Pressure Reduction Devices: heel offloading device utilized positioning supports utilized Skin Protection: incontinence pads utilized skin sealant/moisture barrier applied silicone border foam - sacrum/coccyx Taken 02/02/2025 0200 by Shantel Gardner RN Activity Management: activity encouraged Pressure Reduction Techniques: frequent weight shift encouraged pressure points protected weight shift assistance provided Head of Bed (HOB) Positioning: HOB elevated Pressure Reduction Devices: heel offloading device utilized positioning supports utilized Skin Protection: incontinence pads utilized skin sealant/moisture barrier applied silicone border foam - sacrum/coccyx Taken 02/02/2025 0000 by Shantel Gardner RN Activity Management: activity encouraged Pressure Reduction Techniques: frequent weight shift encouraged pressure points protected weight shift assistance provided Head of Bed (HOB) Positioning: HOB elevated Pressure Reduction Devices: heel offloading device utilized positioning supports utilized Skin Protection: incontinence pads utilized skin sealant/moisture barrier applied silicone border foam - sacrum/coccyx Taken 02/01/2025 2200 by Shantel aGrdner RN Activity Management: activity encouraged Pressure Reduction Techniques: frequent weight shift encouraged pressure points protected weight shift assistance provided Head of Bed (HOB) Positioning: HOB elevated Pressure Reduction Devices: heel offloading device utilized positioning supports utilized Skin Protection: incontinence pads utilized skin sealant/moisture barrier applied silicone border foam - sacrum/coccyx Taken 02/01/2025 2000 by Shantel Gardner RN Activity Management: activity encouraged Pressure Reduction Techniques: frequent weight shift encouraged heels elevated off bed weight shift assistance provided pressure points protected Head of Bed (HOB) Positioning: HOB elevated Pressure Reduction Devices: positioning supports utilized pressure-redistributing mattress utilized heel offloading device utilized Skin Protection: incontinence pads utilized skin sealant/moisture barrier applied silicone border foam - sacrum/coccyx Problem: Fall Injury Risk Goal: Absence of Fall and Fall-Related Injury Outcome: Progressing Intervention: Identify and Manage Contributors Recent Flowsheet Documentation Taken 02/02/2025 0600 by Shantel Gardner RN Self-Care Promotion: independence encouraged BADL personal objects within reach Taken 02/02/2025 0400 by Shantel Gardner RN Self-Care Promotion: independence encouraged BADL personal objects within reach Taken 02/02/2025 0200 by Shantel Gardner RN Self-Care Promotion: independence encouraged BADL personal objects within reach Taken 02/02/2025 0000 by Shantel Gardner RN Self-Care Promotion: independence encouraged BADL personal objects within reach Taken 02/01/2025 2200 by Shantel Gardner RN Self-Care Promotion: independence encouraged BADL personal objects within reach Taken 02/01/20251999 by Shantel Gardner RN Medication Review/Management: medications reviewed Self-Care Promotion: independence encouraged BADL personal objects within reach Intervention: Promote Injury-Free Environment Recent Flowsheet Documentation Taken 02/02/2025 0600 by Shantel Gardner RN Safety Promotion/Fall Prevention: activity supervised assistive device/personal items within reach clutter free environment maintained fall prevention program maintained lighting adjusted nonskid shoes/slippers when out of bed room organization consistent safety round/check completed Taken 02/02/2025 0400 by Shantel Gardner RN Safety Promotion/Fall Prevention: activity supervised assistive device/personal items within reach clutter free environment maintained fall prevention program maintained lighting adjusted nonskid shoes/slippers when out of bed room organization consistent safety round/check completed Taken 02/02/2025 0200 by Shantel Gradner RN Safety Promotion/Fall Prevention: activity supervised assistive device/personal items within reach clutter free environment maintained fall prevention program maintained lighting adjusted nonskid shoes/slippers when out of bed room organization consistent safety round/check completed Taken 02/02/2025 0000 by Shantel Gardner RN Safety Promotion/Fall Prevention: activity supervised assistive device/personal items within reach clutter free environment maintained fall prevention program maintained lighting adjusted nonskid shoes/slippers when out of bed room organization consistent safety round/check completed Taken 02/01/2025 2200 by Shantel Gardner RN Safety Promotion/Fall Prevention: activity supervised assistive device/personal items within reach clutter free environment maintained fall prevention program maintained lighting adjusted nonskid shoes/slippers when out of bed room organization consistent safety round/check completed Taken 02/01/2025 2000 by Shantel Gardner RN Safety Promotion/Fall Prevention: activity supervised assistive device/personal items within reach clutter free environment maintained fall prevention program maintained lighting adjusted nonskid shoes/slippers when out of bed room organization consistent safety round/check completed Problem: Restraint, Nonviolent Goal: Absence of Harm or Injury Outcome: Progressing Intervention: Implement Least Restrictive Safety Strategies Recent Flowsheet Documentation Taken 02/02/2025 0600 by Shantel Gardner RN Control Operator Protection: tubing secured torso covered Taken 02/02/2025 0400 by Shantel Gardner RN Control Operator Protection: tubing secured torso covered Taken 02/02/2025 0200 by Shantel Gardner RN Control Operator Protection: tubing secured torso covered Taken 02/02/2025 0000 by Shantel Gardner RN Control Operator Protection: tubing secured torso covered Taken 02/01/2025 2200 by Shantel Gardner RN Control Operator Protection: tubing secured torso covered Taken 02/01/20251999 by Shantel Gardner RN Control Operator Protection: tubing secured torso covered Diversional Activities: television Intervention: Protect Dignity, Rights and Personal Wellbeing Recent Flowsheet Documentation Taken 02/01/20251999 by Shantel Gardner RN Trust Relationship/Rapport: care explained choices provided Intervention: Protect Skin and Joint Integrity Recent Flowsheet Documentation Taken 02/02/2025 0600 by Shantel Gardner RN Body Position: position changed independently sitting up in bed Skin Protection: incontinence pads utilized skin sealant/moisture barrier applied silicone border foam - sacrum/coccyx Taken 02/02/2025 0400 by Shantel Gardner RN Body Position: position changed independently supine Skin Protection: incontinence pads utilized skin sealant/moisture barrier applied silicone border foam - sacrum/coccyx Taken 02/02/2025 0200 by Shantel Gardner RN Body Position: position changed independently turned right Skin Protection: incontinence pads utilized skin sealant/moisture barrier applied silicone border foam - sacrum/coccyx Taken 02/02/2025 0000 by Shantel Gardner RN Body Position: position changed independently supine Skin Protection: incontinence pads utilized skin sealant/moisture barrier applied silicone border foam - sacrum/coccyx Taken 02/01/2025 2200 by Shantel Gardner RN Body Position: position changed independently sitting up in bed Skin Protection: incontinence pads utilized skin sealant/moisture barrier applied silicone border foam - sacrum/coccyx Taken 02/01/20251999 by Shantel Gardner RN Body Position: position changed independently sitting up in bed Skin Protection: incontinence pads utilized skin sealant/moisture barrier applied silicone border foam - sacrum/coccyx Problem: Sepsis/Septic Shock Goal: Optimal Coping Outcome: Progressing Intervention: Support Patient and Family Response Recent Flowsheet Documentation Taken 02/02/2025 0600 by Shantel Gardner RN Supportive Measures: active listening utilized goal-setting facilitated Taken 02/02/2025 0400 by Shantel Gardner RN Supportive Measures: active listening utilized goal-setting facilitated Taken 02/02/2025 0200 by Shantel Gardner RN Supportive Measures: active listening utilized goal-setting facilitated Taken 02/02/2025 0000 by Shantel Gardner RN Supportive Measures: active listening utilized goal-setting facilitated Taken 02/01/2025 2200 by Shantel Gardner RN Supportive Measures: active listening utilized goal-setting facilitated Taken 02/01/20251999 by Shantel Gardner RN Supportive Measures: active listening utilized goal-setting facilitated Family/Support System Care: self-care encouraged support provided Goal: Absence of Bleeding Outcome: Progressing Goal: Blood Glucose Level Within Target Range Outcome: Progressing Goal: Absence of Infection Signs and Symptoms Outcome: Progressing Intervention: Initiate Sepsis Management Recent Flowsheet Documentation Taken 02/02/2025 0600 by Shantel Gardner RN Infection Prevention: cohorting utilized environmental surveillance performed equipment surfaces disinfected hand hygiene promoted rest/sleep promoted Taken 02/02/2025 0400 by Shantel Gardner RN Infection Prevention: cohorting utilized environmental surveillance performed equipment surfaces disinfected hand hygiene promoted rest/sleep promoted Taken 02/02/2025 0200 by Shantel Gardner RN Infection Prevention: cohorting utilized environmental surveillance performed equipment surfaces disinfected hand hygiene promoted rest/sleep promoted Taken 02/02/2025 0000 by Shantel Gardner RN Infection Prevention: cohorting utilized environmental surveillance performed equipment surfaces disinfected hand hygiene promoted rest/sleep promoted Taken 02/01/2025 2200 by Shantel Gardner RN Infection Prevention: cohorting utilized environmental surveillance performed equipment surfaces disinfected hand hygiene promoted rest/sleep promoted Taken 02/01/20251999 by Shantel Gardner RN Infection Prevention: cohorting utilized environmental surveillance performed equipment surfaces disinfected hand hygiene promoted rest/sleep promoted Intervention: Promote Recovery Recent Flowsheet Documentation Taken 02/02/2025 0600 by Shantel Gardner RN Activity Management: activity encouraged Sleep/Rest Enhancement: awakenings minimized consistent schedule promoted Taken 02/02/2025 0400 by Shantel Gardner RN Activity Management: activity encouraged Sleep/Rest Enhancement: awakenings minimized consistent schedule promoted Taken 02/02/2025 0200 by Shantel Gardner RN Activity Management: activity encouraged Sleep/Rest Enhancement: awakenings minimized consistent schedule promoted Taken 02/02/2025 0000 by Shantel Gardner RN Activity Management: activity encouraged Sleep/Rest Enhancement: awakenings minimized consistent schedule promoted Taken 02/01/2025 2200 by Shantel Gardner RN Activity Management: activity encouraged Sleep/Rest Enhancement: awakenings minimized consistent schedule promoted Taken 02/01/20251999 by Lucia, Shantel, RN Activity Management: activity encouraged Sleep/Rest Enhancement: awakenings minimized consistent schedule promoted Goal: Optimal Nutrition Delivery Outcome: Progressing Problem: Noninvasive Ventilation Acute Goal: Effective Unassisted Ventilation and Oxygenation Outcome: Progressing Goal Outcome Evaluation: Pt remains AOX4. 2L NC. NSR. Pt did well getting up to bsc. Plan of care ongoing. * Nida Mcdaniel PT - 02/01/2025 2:25 PM EDT Goal Outcome Evaluation: Plan of Care Reviewed With: patient, spouse Progress: improving Outcome Evaluation: Pt demonstrating improvements this date by ambulating farther distance w/ Janine x1. However, pt continues to ambulate w/ 2L NC and fatigues quickly w/ mobility. Pt would continue to benefit from IP PT services while hospitalized to address deficits in strength, balance, and activity tolerance. If medically appropriate, continue to recommend IRF at d/c. Anticipated Discharge Disposition (PT): inpatient rehabilitation facility * Milli Chowdary RN - 02/01/2025 10:13 AM EDT Problem: Mechanical Ventilation Invasive Goal: Optimal Nutrition Delivery Outcome: Progressing Problem: Skin Injury Risk Increased Goal: Skin Health and Integrity Outcome: Progressing Intervention: Optimize Skin Protection Recent Flowsheet Documentation Taken 02/01/2025 08 by Milli Chowdary RN Activity Management: bedrest Pressure Reduction Techniques: frequent weight shift encouraged Head of Bed (HOB) Positioning: HOB elevated Pressure Reduction Devices: specialty bed utilized Skin Protection: incontinence pads utilized Problem: Fall Injury Risk Goal: Absence of Fall and Fall-Related Injury Outcome: Progressing Intervention: Identify and Manage Contributors Recent Flowsheet Documentation Taken 02/01/2025 08 by Milli Chowdary RN Medication Review/Management: medications reviewed Intervention: Promote Injury-Free Environment Recent Flowsheet Documentation Taken 02/01/2025799 by Milli Chowdary RN Safety Promotion/Fall Prevention: safety round/check completed Goal Outcome Evaluation: * Carrie Prieto RN - 02/01/2025 5:41 AM EDT Problem: Mechanical Ventilation Invasive Goal: Effective Communication Outcome: Progressing Intervention: Ensure Effective Communication Recent Flowsheet Documentation Taken 02/01/2025 0400 by Carrie Prieto RN Trust Relationship/Rapport: care explained questions answered questions encouraged Family/Support System Care: self-care encouraged Taken 02/01/2025 0200 by Carrie Prieto RN Trust Relationship/Rapport: care explained questions encouraged questions answered Diversional Activities: television Family/Support System Care: self-care encouraged Taken 02/01/2025 0000 by Carrie Prieto RN Trust Relationship/Rapport: care explained questions answered questions encouraged Diversional Activities: television Taken 01/31/2025 2200 by Carrie Prieto RN Trust Relationship/Rapport: care explained questions answered questions encouraged Diversional Activities: television Family/Support System Care: presence promoted self-care encouraged Taken 01/31/20252032 by Carrie Prieto RN Trust Relationship/Rapport: care explained questions answered questions encouraged Diversional Activities: television Family/Support System Care: self-care encouraged Goal: Optimal Device Function Outcome: Progressing Intervention: Optimize Device Care and Function Recent Flowsheet Documentation Taken 02/01/2025 0400 by Carrie Prieto RN Airway Safety Measures: oxygen flowmeter at bedside Taken 02/01/2025 0200 by Carrie Prieto RN Airway Safety Measures: oxygen flowmeter at bedside suction at bedside Taken 02/01/2025 0000 by Carrie Prieto RN Airway Safety Measures: suction at bedside oxygen flowmeter at bedside Taken 01/31/2025 2200 by Carrie Prieto RN Airway Safety Measures: suction at bedside oxygen flowmeter at bedside Taken 01/31/20252032 by Carrie Prieto RN Airway Safety Measures: suction at bedside oxygen flowmeter at bedside Goal: Mechanical Ventilation Liberation Outcome: Progressing Intervention: Promote Extubation and Mechanical Ventilation Liberation Recent Flowsheet Documentation Taken 02/01/2025 0200 by Carrie Prieto RN Medication Review/Management: medications reviewed Taken 02/01/2025 0000 by Carrie Prieto RN Medication Review/Management: medications reviewed Taken 01/31/20252199 by Carrie Prieto RN Medication Review/Management: medications reviewed Taken 01/31/20252032 by Carrie Prieto RN Medication Review/Management: medications reviewed Goal: Optimal Nutrition Delivery Outcome: Progressing Goal: Absence of Device-Related Skin and Tissue Injury Outcome: Progressing Intervention: Maintain Skin and Tissue Health Recent Flowsheet Documentation Taken 01/31/20252032 by Carrie Prieto RN Device Skin Pressure Protection: tubing/devices free from skin contact [id number] areas padded [id number] areas padded Goal: Absence of Ventilator-Induced Lung Injury Outcome: Progressing Intervention: Prevent Ventilator-Associated Pneumonia Recent Flowsheet Documentation Taken 02/01/2025 0400 by Carrie Prieto RN Head of Bed (HOB) Positioning: HOB elevated Taken 02/01/2025 0200 by Carrie Prieto RN Head of Bed (HOB) Positioning: HOB elevated Taken 02/01/2025 0000 by Carrie Prieto RN Head of Bed (HOB) Positioning: HOB elevated Taken 01/31/2025 2200 by Carrie Prieto RN Head of Bed (HOB) Positioning: HOB elevated Taken 01/31/20252032 by Carrie Prieto RN Head of Bed (HOB) Positioning: HOB elevated Goal Outcome Evaluation: * Ronal Noriega MS CCC-TRAY ROOM WORKER - 01/31/2025 3:34 PM EDT Goal Outcome Evaluation: Plan of Care Reviewed With: patient, spouse Progress: improving Anticipated Discharge Disposition (TRAY ROOM WORKER): No further TRAY ROOM WORKER services warranted Treatment Assessment (TRAY ROOM WORKER): no clinical signs of, aspiration, oral dysphagia, pharyngeal dysphagia (01/31/25 1500) Plan for Continued Treatment (TRAY ROOM WORKER): treatment no longer indicated as all goals met (01/31/25 1500) * Milli Chowdary RN - 01/31/2025 1:41 PM EDT Critical lab called. Phosphorus of 1.7. Called by [facility]/received by Naomi JARRETT MD notified * Milli Chowdary RN - 01/31/2025 12:22 PM EDT Problem: Adult Inpatient Plan of Care Goal: Plan of Care Review Outcome: Progressing Goal: Optimal Comfort and Wellbeing Outcome: Progressing Intervention: Provide Person-Centered Care Recent Flowsheet Documentation Taken 01/31/2025 1200 by Milli Chowdary RN Trust Relationship/Rapport: care explained thoughts/feelings acknowledged Taken 01/31/2025 0930 by Milli Chowdary RN Trust Relationship/Rapport: care explained thoughts/feelings acknowledged Problem: Fall Injury Risk Goal: Absence of Fall and Fall-Related Injury Outcome: Progressing Intervention: Identify and Manage Contributors Recent Flowsheet Documentation Taken 01/31/2025 1200 by Milli Chowdary RN Medication Review/Management: medications reviewed Taken 01/31/2025 0930 by Milli Chowdary RN Medication Review/Management: medications reviewed Intervention: Promote Injury-Free Environment Recent Flowsheet Documentation Taken 01/31/2025 1200 by Milli Chowdary RN Safety Promotion/Fall Prevention: safety round/check completed Taken 01/31/2025 0930 by Milli Chowdary RN Safety Promotion/Fall Prevention: safety round/check completed Goal Outcome Evaluation: * Dru Ballard RN - 01/30/2025 6:51 PM EDT Goal Outcome Evaluation: A&Ox4. JOHNSON's equally. General weakness. X3 loose BM's. On transfer outof ICU. Problem: Mechanical Ventilation Invasive Goal: Optimal Device Function Intervention: Optimize Device Care and Function Recent Flowsheet Documentation Taken 01/30/2025 1800 by Dru Ballard, ALISA Airway Safety Measures: suction at bedside oxygen flowmeter at bedside mask valve resuscitator at bedside Taken 01/30/2025 1600 by Dru Ballard RN Airway Safety Measures: suction at bedside oxygen flowmeter at bedside Taken 01/30/2025 1400 by Dru Ballard RN Airway Safety Measures: suction at bedside oxygen flowmeter at bedside mask valve resuscitator at bedside Taken 01/30/2025 1200 by Dru Ballard RN Airway Safety Measures: suction at bedside oxygen flowmeter at bedside Taken 01/30/2025 1000 by Dru Ballard RN Airway Safety Measures: suction at bedside Taken 01/30/2025 0800 by Dru Ballard RN Oral Care: patient refused intervention Airway Safety Measures: oxygen flowmeter at bedside suction at bedside mask valve resuscitator at bedside Problem: Mechanical Ventilation Invasive Goal: Mechanical Ventilation Liberation Intervention: Promote Extubation and Mechanical Ventilation Liberation Recent Flowsheet Documentation Taken 01/30/2025 1800 by Dru Ballard RN Medication Review/Management: medications reviewed Taken 01/30/2025 1600 by Dru Ballard RN Medication Review/Management: medications reviewed Taken 01/30/2025 1400 by Dru Ballard RN Medication Review/Management: medications reviewed Taken 01/30/2025 1200 by Dru Ballard RN Medication Review/Management: medications reviewed Taken 01/30/2025 1000 by Dru Ballard RN Medication Review/Management: medications reviewed Taken 01/30/2025 0800 by Dru Ballard RN Medication Review/Management: medications reviewed Problem: Adult Inpatient Plan of Care Goal: Absence of Hospital-Acquired Illness or Injury Intervention: Prevent Skin Injury Recent Flowsheet Documentation Taken 01/30/2025 1800 by Dru Ballard RN Body Position: position changed independently Taken 01/30/2025 1600 by Dru Ballard RN Body Position: position changed independently Taken 01/30/2025 1400 by Dru Ballard RN Body Position: position changed independently Taken 01/30/2025 1200 by Dru Ballard RN Body Position: position changed independently Taken 01/30/2025 1000 by Dru Ballard RN Body Position: position changed independently Taken 01/30/2025 0800 by Dru Ballard RN Body Position: position changed independently Skin Protection: silicone foam dressing in place incontinence pads utilized Problem: Skin Injury Risk Increased Goal: Skin Health and Integrity Intervention: Optimize Skin Protection Recent Flowsheet Documentation Taken 01/30/2025 1800 by Dru Ballard RN Activity Management: bedrest Head of Bed (HOB) Positioning: HOB at 30 degrees Taken 01/30/2025 1600 by Dru Ballard RN Activity Management: back to bed Head of Bed (HOB) Positioning: HOB at 30 degrees Taken 01/30/2025 1400 by Dru Ballard RN Activity Management: up in chair Head of Bed (HOB) Positioning: HOB at 30 degrees Taken 01/30/2025 1200 by Dru Ballard RN Activity Management: up in chair Head of Bed (HOB) Positioning: HOB at 30 degrees HOB at 45 degrees Taken 01/30/2025 1000 by Dru Ballard RN Activity Management: bedrest Taken 01/30/2025 0800 by Dru Ballard RN Activity Management: ambulated in room up to bedside commode Pressure Reduction Techniques: weight shift assistance provided heels elevated off bed Head of Bed (HOB) Positioning: HOB at 30-45 degrees Pressure Reduction Devices: pressure-redistributing mattress utilized feet on footrest/footstool Skin Protection: silicone foam dressing in place incontinence pads utilized Problem: Fall Injury Risk Goal: Absence of Fall and Fall-Related Injury Intervention: Promote Injury-Free Environment Recent Flowsheet Documentation Taken 01/30/2025 1800 by Dru Ballard RN Safety Promotion/Fall Prevention: safety round/check completed activity supervised Taken 01/30/2025 1600 by Dru Ballard RN Safety Promotion/Fall Prevention: safety round/check completed activity supervised Taken 01/30/2025 1400 by Dru Ballard RN Safety Promotion/Fall Prevention: safety round/check completed activity supervised Taken 01/30/2025 1200 by Dru Ballard RN Safety Promotion/Fall Prevention: safety round/check completed activity supervised Taken 01/30/2025 1000 by Dru Ballard RN Safety Promotion/Fall Prevention: safety round/check completed activity supervised Taken 01/30/2025 0800 by Dru Ballard RN Safety Promotion/Fall Prevention: safety round/check completed activity supervised Problem: Sepsis/Septic Shock Goal: Absence of Infection Signs and Symptoms Intervention: Promote Recovery Recent Flowsheet Documentation Taken 01/30/2025 1800 by Dru Ballard RN Activity Management: bedrest Taken 01/30/2025 1600 by Dru Ballard RN Activity Management: back to bed Taken 01/30/2025 1400 by Dru Ballard RN Activity Management: up in chair Taken 01/30/2025 1200 by Dru Ballard RN Activity Management: up in chair Taken 01/30/2025 1000 by Dru Ballard RN Activity Management: bedrest Taken 01/30/2025 0800 by Dru Ballard RN Activity Management: ambulated in room up to bedside commode * Julia Pettit RN - 01/29/2025 4:13 PM EDT Problem: Mechanical Ventilation Invasive Goal: Effective Communication Outcome: Progressing Intervention: Ensure Effective Communication Description: Keep call system within reach; adapt to meet needs; respond to call light in person.Acknowledge and validate intensity and complexity of voicelessness. Maintain eye contact when speakingand awaiting response.Promote calming presence. Involve patient in decision-making and care to promote inclusion, self-efficacy, confidence and sense of control.Establish a nonverbal communication method. Use augmentative techniques to preserve self-identity and self-esteem, such as writing tools, letter board, computer, flash cards or picture boards.If tracheostomy, consider alternative communication method to facilitate sound or speech, such as speaking valve, occlusive cap or electrolarynx; deflate tracheostomy cuff, if present, when using devices to allow exhalation; monitor closely.Assess and monitor for signs of biopsychosocial concerns that may affect ability to communicate, such as d elirium, anxiety and depression. Recent Flowsheet Documentation Taken 01/29/2025 1400 by Julia Pettit RN Trust Relationship/Rapport: care explained reassurance provided Taken 01/29/2025 1200 by Julia Pettit RN Trust Relationship/Rapport: care explained reassurance provided Taken 01/29/2025 1000 by Julia Pettit RN Trust Relationship/Rapport: care explained reassurance provided Taken 01/29/2025 0800 by Julia Pettit RN Trust Relationship/Rapport: care explained reassurance provided Diversional Activities: television Family/Support System Care: support provided Goal: Optimal Device Function Outcome: Progressing Goal: Mechanical Ventilation Liberation Outcome: Progressing Goal: Optimal Nutrition Delivery Outcome: Progressing Goal: Absence of Device-Related Skin and Tissue Injury Outcome: Progressing Intervention: Maintain Skin and Tissue Health Description: Reposition and resecure endotracheal tube regularly; ensure proper tube location.Monitor depth of suction catheter advancement to minimize the risk of internal tracheobronchial tissue injury.Assess skin and mucosal areas around the device frequently.Monitor tightness of securement device regularly; consider skin barrier protection.Minimize pressure points and prevent traction on device, using careful positioning, flexible extenders and props.Assess and monitor for the presence of bleeding that may indicate injury to tracheobronchial tissue. Notify provider for persistent bleeding.Anticipate adjunct therapy, such as cool mist, racemic epinephrine, corticosteroid or heliox, for symptoms related to airway swelling or stridor after removal of tube. Recent Flowsheet Documentation Taken 01/29/2025 1400 by Julia Pettit RN Device Skin Pressure Protection: absorbent pad utilized/changed adhesive use limited positioning supports utilized pressure points protected tubing/devices free from skin contact Taken 01/29/2025 1200 by Julia Pettit RN Device Skin Pressure Protection: absorbent pad utilized/changed adhesive use limited positioning supports utilized pressure points protected tubing/devices free from skin contact Taken 01/29/2025 1000 by Julia Pettit RN Device Skin Pressure Protection: absorbent pad utilized/changed adhesive use limited positioning supports utilized pressure points protected tubing/devices free from skin contact Taken 01/29/2025 0800 by Julia Pettit RN Device Skin Pressure Protection: absorbent pad utilized/changed adhesive use limited positioning supports utilized pressure points protected tubing/devices free from skin contact Goal: Absence of Ventilator-Induced Lung Injury Outcome: Progressing Intervention: Prevent Ventilator-Associated Pneumonia Description: Assess readiness to extubate; perform sedation interruption and spontaneous breathing trial.Maintain semirecumbent position to minimize aspiration risk.Provide ongoing oral care to reduce pathogens in oral cavity.Consider the use of antiseptic cloths for daily bathing.Minimize ventilator circuit breaks; consider use of closed suction device.Minimize microaspiration risk; consider theuse of ultrathin polyurethane tapered endotracheal tubes with subglottic secretion drainage, as well as cuff pressure monitoring.Assess need for stress ulcer and venous thromboembolism prophylaxis due to increased risk during mechanical ventilation. Recent Flowsheet Documentation Taken 01/29/2025 1400 by Julia Pettit RN Head of Bed (HOB) Positioning: HOB at 30-45 degrees Taken 01/29/2025 1200 by Julia Pettit RN Head of Bed (HOB) Positioning: (oob) other (see comments) Taken 01/29/2025 1000 by Julia Pettit RN Head of Bed (HOB) Positioning: HOB at 30-45 degrees Taken 01/29/2025 0800 by Julia Pettit RN Head of Bed (HOB) Positioning: HOB at 30-45 degrees Problem: Adult Inpatient Plan of Care Goal: Plan of Care Review Outcome: Progressing Goal: Patient-Specific Goal (Individualized) Outcome: Progressing Goal: Absence of Hospital-Acquired Illness or Injury Outcome: Progressing Intervention: Identify and Manage Fall Risk Description: Perform standard risk assessment on admission using a validated tool or comprehensive approach appropriate to the patient; reassess fall risk frequently, with change in status or transfer to another level of care.Communicate risk to interprofessional healthcare team; ensure fall risk vi sible cue.Determine need for increased observation, equipment and environmental modification, as well as use of supportive, nonskid footwear.Adjust safety measures to individual needs and identified risk factors.Reinforce the importance of active participation with fall risk prevention, safety, and physical activity with the patient and family.Perform regular intentional rounding to assess need for position change, pain assessment and personal needs, including assistance with toileting. Recent Flowsheet Documentation Taken 01/29/2025 1400 by Julia Pettit RN Safety Promotion/Fall Prevention: assistive device/personal items within reach clutter free environment maintained fall prevention program maintained toileting scheduled safety round/check completed room organization consistent nonskid shoes/slippers when out of bed Taken 01/29/2025 1200 by Julia Pettit RN Safety Promotion/Fall Prevention: assistive device/personal items within reach clutter free environment maintained fall prevention program maintained toileting scheduled safety round/check completed room organization consistent nonskid shoes/slippers when out of bed Taken 01/29/2025 1000 by Julia Pettit RN Safety Promotion/Fall Prevention: assistive device/personal items within reach clutter free environment maintained fall prevention program maintained toileting scheduled safety round/check completed room organization consistent nonskid shoes/slippers when out of bed Taken 01/29/2025 0800 by Julia Pettit RN Safety Promotion/Fall Prevention: assistive device/personal items within reach clutter free environment maintained fall prevention program maintained toileting scheduled safety round/check completed room organization consistent nonskid shoes/slippers when out of bed Intervention: Prevent Skin Injury Description: Perform a screening for skin injury risk, such as pressure or moisture-associated skindamage on admission and at regular intervals throughout hospital stay.Keep all areas of skin (especially folds) clean and dry.Maintain adequate skin hydration.Relieve and redistribute pressure and protect bony prominences and skin at risk for injury; implement measures based on patient- specific risk factors.Match turning and repositioning schedule to clinical condition.Encourage weight shift frequently; assist with reposition if unable to complete independently.Float heels off bed; avoid pressure on the Achilles tendon.Keep skin free from extended contact with medical devices.Optimize nutrition and hydration.Encourage functional activity and mobility, as early as tolerated.Use aids (e.g., slide boards, mechanical lift) during transfer. Recent Flowsheet Documentation Taken 01/29/2025 1400 by Julia Pettit RN Body Position: turned supine lower extremity elevated neutral body alignment neutral head position upper extremity elevated Skin Protection: incontinence pads utilized transparent dressing maintained silicone foam dressing in place Taken 01/29/2025 1200 by Julia Pettit RN Body Position: position changed independently Skin Protection: incontinence pads utilized transparent dressing maintained silicone foam dressing in place Taken 01/29/2025 1000 by Julia Pettit RN Body Position: patient/family refused position maintained Skin Protection: incontinence pads utilized transparent dressing maintained silicone foam dressing in place Taken 01/29/2025 0800 by Julia Pettit RN Body Position: turned right upper extremity elevated lower extremity elevated neutral body alignment neutral head position Skin Protection: incontinence pads utilized transparent dressing maintained silicone foam dressing in place Intervention: Prevent and Manage VTE (Venous Thromboembolism) Risk Description: Assess for VTE (venous thromboembolism) risk.Promote early mobilization; encourage both active and passive leg exercises, if unable to ambulate.Initiate and maintain compression or othertherapy, as indicated, based on identified risk in accordance with organizational protocol and provider order.Recognize the patient's individual risk for bleeding before initiating pharmacologic thromboprophylaxis. Recent Flowsheet Documentation Taken 01/29/2025 0800 by Julia Pettit RN VTE Prevention/Management: (sq hep) bilateral SCDs (sequential compression devices) off Goal: Optimal Comfort and Wellbeing Outcome: Progressing Intervention: Provide Person-Centered Care Description: Use a family-focused approach to care; encourage support system presence and participation.Develop trust and rapport by proactively providing information, encouraging questions, addressing concerns and offering reassurance.Acknowledge emotional response to hospitalization.Recognize and utilize personal coping strategies and strengths; develop goals via shared decision-making.Rolla spiritual and cultural preferences. Recent Flowsheet Documentation Taken 01/29/2025 1400 by Julia Pettit RN Trust Relationship/Rapport: care explained reassurance provided Taken 01/29/2025 1200 by Julia Pettit RN Trust Relationship/Rapport: care explained reassurance provided Taken 01/29/2025 1000 by Julia Pettit RN Trust Relationship/Rapport: care explained reassurance provided Taken 01/29/2025 0800 by Julia Pettit RN Trust Relationship/Rapport: care explained reassurance provided Goal: Readiness for Transition of Care Outcome: Progressing Problem: Skin Injury Risk Increased Goal: Skin Health and Integrity Outcome: Progressing Intervention: Optimize Skin Protection Description: Perform a full pressure injury risk assessment, as indicated by screening, upon admission to care unit.Reassess skin (full inspection and injury risk, including skin temperature, consistency and color) frequently (e.g., scheduled interval, with change in condition) to provide optimal early detection and prevention.Maintain adequate tissue perfusion (e.g., encourage fluid balance; avoid crossing legs, constrictive clothing or devices) to promote tissue oxygenation.Maintain head of bed at lowest degree of elevation tolerated, considering medical condition and other restrictions. Use positioning supports to prevent sliding and friction. Consider low friction textiles.Avoid position ing onto an area that remains reddened or on bony prominences.Minimize incontinence and moisture (e.g., toileting schedule; moisture-wicking pad, diaper or incontinence collection device; skin moisture barrier).Cleanse skin promptly and gently, when soiled, utilizing a pH-balanced cleanser.Relieve and redistribute pressure (e.g., scheduled position changes, weight shifts, use of support surface, medical assembler repositioning, protective dressing application, use of positioning device, microclimate control, use of [id number] increased activity, such as sitting in a chair at the bedside or early mobilization, when able to tolerate. Avoid prolonged sitting. Recent Flowsheet Documentation Taken 01/29/2025 1400 by Julia Pettit RN Activity Management: back to bed Pressure Reduction Techniques: frequent weight shift encouraged heels elevated off bed pressure points protected weight shift assistance provided Head of Bed (HOB) Positioning: HOB at 30-45 degrees Pressure Reduction Devices: specialty bed utilized pressure-redistributing mattress utilized positioning supports utilized heel offloading device utilized foam padding utilized Skin Protection: incontinence pads utilized transparent dressing maintained silicone foam dressing in place Taken 01/29/2025 1200 by Julia Pettit RN Activity Management: up in chair Pressure Reduction Techniques: frequent weight shift encouraged pressure points protected Head of Bed (HOB) Positioning: (oob) other (see comments) Pressure Reduction Devices: chair cushion utilized feet on footrest/footstool heel offloading device utilized foam padding utilized Skin Protection: incontinence pads utilized transparent dressing maintained silicone foam dressing in place Taken 01/29/2025 1000 by Julia Pettit RN Activity Management: bedrest Pressure Reduction Techniques: frequent weight shift encouraged pressure points protected heels elevated off bed Head of Bed (HOB) Positioning: HOB at 30-45 degrees Pressure Reduction Devices: specialty bed utilized pressure-redistributing mattress utilized positioning supports utilized foam padding utilized Skin Protection: incontinence pads utilized transparent dressing maintained silicone foam dressing in place Taken 01/29/2025 0800 by Julia Pettit RN Activity Management: bedrest Pressure Reduction Techniques: frequent weight shift encouraged heels elevated off bed positioned off wounds pressure points protected weight shift assistance provided Head of Bed (HOB) Positioning: HOB at 30-45 degrees Pressure Reduction Devices: specialty bed utilized pressure-redistributing mattress utilized foam padding utilized heel offloading device utilized positioning supports utilized Skin Protection: incontinence pads utilized transparent dressing maintained silicone foam dressing in place Problem: Fall Injury Risk Goal: Absence of Fall and Fall-Related Injury Outcome: Progressing Intervention: Identify and Manage Contributors Description: Develop a fall prevention plan, considering patient-centered interventions and family/caregiver involvement; identify and address patient's facilitators and barriers.Provide reorientation, appropriate sensory stimulation and routines with changes in mental status to decrease risk of fall.Promote use of personal vision and auditory aids.Assess assistance level required for safe and effective self-care; provide support as needed, such as toileting and mobilization. For age 65 and older, implement timed toileting with assistance.Encourage physical activity, such as performance of mobility and self-care at highest level of patient ability, multicomponent exercise program and provision of appropriate assistive devices.If fall occurs, assess the severity of injury; implement fall injury protocol. Determine the cause and revise fall injury prevention plan.Regularly review and advocate for medication adjustment to decrease fall risk; consider administration times, polypharmacy and age.Balance adequate pain management with potential for oversedation. Recent Flowsheet Documentation Taken 01/29/2025 1200 by Julia Pettit RN Self-Care Promotion: independence encouraged Taken 01/29/2025 0800 by Julia Pettit RN Self-Care Promotion: independence encouraged Intervention: Promote Injury-Free Environment Description: Provide a safe, barrier-free environment that encourages independent activity.Keep care area uncluttered and well-lighted.Determine need for increased observation or monitoring.Avoid useof devices that minimize mobility, such as restraints or indwelling urinary catheter. Recent Flowsheet Documentation Taken 01/29/2025 1400 by Julia Pettit RN Safety Promotion/Fall Prevention: assistive device/personal items within reach clutter free environment maintained fall prevention program maintained toileting scheduled safety round/check completed room organization consistent nonskid shoes/slippers when out of bed Taken 01/29/2025 1200 by Julia Pettit, ALISA Safety Promotion/Fall Prevention: assistive device/personal items within reach clutter free environment maintained fall prevention program maintained toileting scheduled safety round/check completed room organization consistent nonskid shoes/slippers when out of bed Taken 01/29/2025 1000 by Julia Pettit RN Safety Promotion/Fall Prevention: assistive device/personal items within reach clutter free environment maintained fall prevention program maintained toileting scheduled safety round/check completed room organization consistent nonskid shoes/slippers when out of bed Taken 01/29/2025 0800 by Julia Pettit RN Safety Promotion/Fall Prevention: assistive device/personal items within reach clutter free environment maintained fall prevention program maintained toileting scheduled safety round/check completed room organization consistent nonskid shoes/slippers when out of bed Problem: Restraint, Nonviolent Goal: Absence of Harm or Injury Outcome: Progressing Intervention: Implement Least Restrictive Safety Strategies Description: Consider personal and environmental factors contributing to unsafe nonviolent, self-destructive behavior.Utilize diversional activity or alternative device protection.Document alternative strategies and less restrictive intervention attempts and their effects.Use the least restrictive m ethod of restraint.Recognize restraint should only be used if needed to improve the patient's wellbeing and less restrictive interventions have been determined to be ineffective.Reassess continued need frequently. Recent Flowsheet Documentation Taken 01/29/2025 0800 by Julia Pettit RN Diversional Activities: television Intervention: Protect Dignity, Rights and Personal Wellbeing Description: Explain restraint rationale and procedure to patient and family/support person prior to or at time of application.Regularly assess personal needs and for changes in behavior and clinicalcondition, as well as physical and emotional wellbeing.Provide reassurance and emotional support. Recent Flowsheet Documentation Taken 01/29/2025 1400 by Julia Pettit RN Trust Relationship/Rapport: care explained reassurance provided Taken 01/29/2025 1200 by Julia Pettit RN Trust Relationship/Rapport: care explained reassurance provided Taken 01/29/2025 1000 by Julia Pettit RN Trust Relationship/Rapport: care explained reassurance provided Taken 01/29/2025 0800 by Julia Pettit RN Trust Relationship/Rapport: care explained reassurance provided Intervention: Protect Skin and Joint Integrity Description: Frequently assess restraint application site for skin integrity, edema and perfusion distal to the site; document findings.Consider protective skin barrier with risk of skin injury.Release and replace restraint at regular intervals.Assist with frequent joint range of motion activity. Recent Flowsheet Documentation Taken 01/29/2025 1400 by Julia Pettit RN Body Position: turned supine lower extremity elevated neutral body alignment neutral head position upper extremity elevated Skin Protection: incontinence pads utilized transparent dressing maintained silicone foam dressing in place Taken 01/29/2025 1200 by Julia Pettit RN Body Position: position changed independently Skin Protection: incontinence pads utilized transparent dressing maintained silicone foam dressing in place Taken 01/29/2025 1000 by Julia Pettit RN Body Position: patient/family refused position maintained Skin Protection: incontinence pads utilized transparent dressing maintained silicone foam dressing in place Taken 01/29/2025 08 by Julia Pettit RN Body Position: turned right upper extremity elevated lower extremity elevated neutral body alignment neutral head position Skin Protection: incontinence pads utilized transparent dressing maintained silicone foam dressing in place Problem: Sepsis/Septic Shock Goal: Optimal Coping Outcome: Progressing Intervention: Support Patient and Family Response Description: Acknowledge, normalize, validate intensity and complexity of patient and support system response to situation.Provide opportunity for expression of thoughts, feelings and concerns; respond with compassion and reassurance.Decrease stress and anxiety by providing information about patient's status and treatment.Facilitate support system presence and participation in care; consider providing a diary in intensive care situation.Support coping by recognizing current coping strategies; provide aid in developing new strategies.Assess and monitor for signs and symptoms of psychologic distress, anxiety and depression.Utilize complementary therapy, such as music, massage or guided imagery.Engage in proactive and ongoing discussion about goals of care and facilitate shared decision-making.Connect with community resources for ongoing support, such as counseling and group support. Recent Flowsheet Documentation Taken 01/29/2025799 by Julia Pettit RN Family/Support System Care: support provided Goal: Absence of Bleeding Outcome: Progressing Goal: Blood Glucose Level Within Target Range Outcome: Progressing Goal: Absence of Infection Signs and Symptoms Outcome: Progressing Intervention: Promote Recovery Description: Encourage pulmonary hygiene, such as cough-enhancement and airway- clearance techniques, that may include use of incentive spirometry, deep breathing and cough.Encourage early rehabilitation and physical activity to optimize functional ability and activity tolerance, as well as minimize delirium.Promote energy conservation; minimize oxygen demand and consumption by adjusting environment, decreasing stimulation, maintaining normothermia and treating pain.Optimize fluid balance, nutrition intake, sleep and glycemic control to maintain tissue perfusion and enhance immune response. Recent Flowsheet Documentation Taken 01/29/2025 1400 by Julia Pettit, RN Activity Management: back to bed Taken 01/29/2025 1200 by Julia Pettit, RN Activity Management: up in chair Taken 01/29/2025 1000 by Julia Pettit RN Activity Management: bedrest Taken 01/29/2025 0800 by Julia Pettit, RN Activity Management: bedrest Goal: Optimal Nutrition Delivery Outcome: Progressing Problem: Noninvasive Ventilation Acute Goal: Effective Unassisted Ventilation and Oxygenation Outcome: Progressing Goal Outcome Evaluation: * Anna Walsh, PT - 01/29/2025 10:29 AM EDT Goal Outcome Evaluation: Plan of Care Reviewed With: patient, spouse Progress: no change Outcome Evaluation: PT initial evaluation completed. Pt demonstrates generalized weakness and decreased indep re: functional mobility warranting further skilled PT services to promote PLOF. Limited today by fatigue and SOA but able to ambulate 108 ft with RW, min x2 A. Recommend IPR at d/c based upon current functional status. Educated pt/spouse re: PT POC. Anticipated Discharge Disposition (PT): inpatient rehabilitation facility * Lissett Feliz, OT - 01/29/2025 10:25 AM EDT Goal Outcome Evaluation: Plan of Care Reviewed With: patient, spouse Outcome Evaluation: OT evaluation completed. The pt presents below baseline with decreased activitytolerance, balance deficits, and generalized weakness warranting continued IP OT services. The pt was assisted in bed mobility with modA x2. The pt ambulated <household distance within the hallwayusing a RWx with Janine. x2 extended standing rest breaks taken for SOA, although SpO2 remained >90% on 3L NC. Recommend a d/c to IRF for best outcome, but will monitor pt progress closely. Anticipated Discharge Disposition (OT): inpatient rehabilitation facility * Tania Myers MS CCC-TRAY ROOM WORKER - 01/29/2025 10:10 AM EDT Goal Outcome Evaluation: Plan of Care Reviewed With: patient, spouse Progress: improving Anticipated Discharge Disposition (TRAY ROOM WORKER): inpatient rehabilitation facility TRAY ROOM WORKER Swallowing Diagnosis: mild, oral dysphagia (01/29/25 1010) * Andrea Cuellar RN - 01/28/2025 6:51 PM EDT Goal Outcome Evaluation: Plan of Care Reviewed With: family Progress: improving Pt extubated at noon, still producing heavy secretions (green/yellow) w/ spells of nausea/vomiting.Confused on place and situation. On 6L NC. SPO2 88-95%. All other VSS stable * Ronal Noriega MS CCC-TRAY ROOM WORKER - 01/28/2025 3:16 PM EDT Goal Outcome Evaluation: Plan of Care Reviewed With: patient, spouse, family Progress: improving Anticipated Discharge Disposition (TRAY ROOM WORKER): inpatient rehabilitation facility TRAY ROOM WORKER Swallowing Diagnosis: R/O pharyngeal dysphagia (01/28/25 1415) * Bryn Marques RN - 01/28/2025 6:46 AM EDT Goal Outcome Evaluation: Pt remains labile throughout shift with periods of compliance follwed by episodes of agitation and restlessness, pt on precedex gtt, received x1 dose of haldol, increased fio2 from 40%to 70% d/t desatting, Normotensive, nsr, adequate uop * Lisseth Hicks CRT - 01/27/2025 1:16 PM EDT Goal Outcome Evaluation: Pt very combative when wakes, no plan for extubation today * Hoang Matamoros RN - 01/27/2025 6:30 AM EDT Problem: Mechanical Ventilation Invasive Goal: Effective Communication Outcome: Not Progressing Intervention: Ensure Effective Communication Recent Flowsheet Documentation Taken 01/27/2025 0600 by Hoang Matamoros, RN Trust Relationship/Rapport: care explained reassurance provided Diversional Activities: television Family/Support System Care: self-care encouraged Taken 01/27/2025 0400 by Hoang Matamoros RN Trust Relationship/Rapport: care explained reassurance provided Diversional Activities: television Family/Support System Care: self-care encouraged Taken 01/27/2025 0200 by Hoang Matamoros RN Trust Relationship/Rapport: care explained reassurance provided Diversional Activities: television Family/Support System Care: self-care encouraged Taken 01/27/2025 0000 by Hoang Matamoros RN Trust Relationship/Rapport: care explained reassurance provided Diversional Activities: television Family/Support System Care: self-care encouraged Taken 01/26/2025 2306 by Hoang Matamoros RN Diversional Activities: television Taken 01/26/2025 2200 by Hoang Matamoros RN Trust Relationship/Rapport: care explained reassurance provided Diversional Activities: television Family/Support System Care: self-care encouraged Taken 01/26/2025 2000 by Hoang Matamoros RN Trust Relationship/Rapport: care explained reassurance provided Diversional Activities: television Family/Support System Care: self-care encouraged Goal: Optimal Device Function Outcome: Not Progressing Intervention: Optimize Device Care and Function Recent Flowsheet Documentation Taken 01/27/2025 0600 by Hoang Matamoros RN Oral Care: suction provided Airway Safety Measures: manual resuscitator/mask at bedside oxygen flowmeter at bedside suction at bedside Taken 01/27/2025 0400 by Hoang Matamoros RN Oral Care: suction provided teeth brushed - suction toothbrush tongue brushed Airway Safety Measures: manual resuscitator/mask at bedside oxygen flowmeter at bedside suction at bedside Taken 01/27/2025 0200 by Hoang Matamoros RN Airway Safety Measures: manual resuscitator/mask at bedside oxygen flowmeter at bedside suction at bedside Taken 01/27/2025 0000 by Hoang Matamoros, ALISA Oral Care: suction provided teeth brushed - suction toothbrush tongue brushed Airway Safety Measures: manual resuscitator/mask at bedside oxygen flowmeter at bedside suction at bedside Taken 01/26/2025 2200 by Hoang Matamoros, RN Airway Safety Measures: manual resuscitator/mask at bedside oxygen flowmeter at bedside suction at bedside Taken 01/26/20251999 by Hoang Matamoros RN Oral Care: suction provided teeth brushed - suction toothbrush tongue brushed Airway Safety Measures: manual resuscitator/mask at bedside oxygen flowmeter at bedside suction at bedside Goal: Mechanical Ventilation Liberation Outcome: Not Progressing Intervention: Promote Extubation and Mechanical Ventilation Liberation Recent Flowsheet Documentation Taken 01/27/2025 0600 by Hoang Matamoros RN Medication Review/Management: medications reviewed Taken 01/27/2025 0400 by Hoang Matamoros RN Medication Review/Management: medications reviewed Taken 01/27/2025 0200 by Hoang Matamoros RN Medication Review/Management: medications reviewed Taken 01/27/2025 0000 by Hoang Matamoros RN Medication Review/Management: medications reviewed Taken 01/26/2025 220 by Hoang Matamoros RN Medication Review/Management: medications reviewed Taken 01/26/20251999 by Hoang Matamoros RN Medication Review/Management: medications reviewed Goal: Optimal Nutrition Delivery Outcome: Not Progressing Goal: Absence of Device-Related Skin and Tissue Injury Outcome: Not Progressing Intervention: Maintain Skin and Tissue Health Recent Flowsheet Documentation Taken 01/27/2025 0600 by Hoang Matamoros RN Device Skin Pressure Protection: absorbent pad utilized/changed positioning supports utilized pressure points protected [id number] areas padded tubing/devices free from skin contact Taken 01/27/2025 0400 by Hoang Matamoros RN Device Skin Pressure Protection: absorbent pad utilized/changed positioning supports utilized pressure points protected [id number]-[id number] areas padded tubing/devices free from skin contact Taken 01/27/2025 0200 by Hoang Matamoros RN Device Skin Pressure Protection: absorbent pad utilized/changed positioning supports utilized pressure points protected [id number] areas padded tubing/devices free from skin contact Taken 01/27/2025 0000 by Hoang Matamoros RN Device Skin Pressure Protection: absorbent pad utilized/changed positioning supports utilized pressure points protected ryvh-kr-[id number] areas padded tubing/devices free from skin contact Taken 01/26/2025 2200 by Hoang Matamoros RN Device Skin Pressure Protection: absorbent pad utilized/changed positioning supports utilized pressure points protected ajsx-hn-[id number] areas padded tubing/devices free from skin contact Taken 01/26/20251999 by Hoang Matamoros RN Device Skin Pressure Protection: absorbent pad utilized/changed positioning supports utilized pressure points protected cbqe-pr-imzkzj areas padded tubing/devices free from skin contact Goal: Absence of Ventilator-Induced Lung Injury Outcome: Not Progressing Intervention: Prevent Ventilator-Associated Pneumonia Recent Flowsheet Documentation Taken 01/27/2025 06 by Hoang Matamoros RN Head of Bed ([facility]) Positioning: HOB at 30-45 degrees Oral Care: suction provided Taken 01/27/2025 0400 by Hoang Matamoros RN Head of Bed ([facility]) Positioning: HOB at 30-45 degrees Oral Care: suction provided teeth brushed - suction toothbrush tongue brushed Taken 01/27/2025 0200 by Hoang Matamoros RN Head of Bed ([facility]) Positioning: HOB at 30-45 degrees Taken 01/27/2025 0000 by Hoang Matamoros RN Head of Bed ([facility]) Positioning: HOB at 30-45 degrees Oral Care: suction provided teeth brushed - suction toothbrush tongue brushed Taken 01/26/2025 2200 by Hoang Matamoros RN Head of Bed ([facility]) Positioning: HOB flat Taken 01/26/20251999 by Hoang Matamoros RN Head of Bed ([facility]) Positioning: HOB at 30-45 degrees Oral Care: suction provided teeth brushed - suction toothbrush tongue brushed Problem: Adult Inpatient Plan of Care Goal: Plan of Care Review Outcome: Not Progressing Goal: Patient-Specific Goal (Individualized) Outcome: Not Progressing Goal: Absence of Hospital-Acquired Illness or Injury Outcome: Not Progressing Intervention: Identify and Manage Fall Risk Recent Flowsheet Documentation Taken 01/27/2025 0600 by Hoang Matamoros RN Safety Promotion/Fall Prevention: safety round/check completed Taken 01/27/2025 0400 by Hoang Matamoros RN Safety Promotion/Fall Prevention: safety round/check completed Taken 01/27/2025 0200 by Hoang Matamoros RN Safety Promotion/Fall Prevention: safety round/check completed Taken 01/27/2025 0000 by Hoang Matamoros RN Safety Promotion/Fall Prevention: safety round/check completed Taken 01/26/2025 2200 by Hoang Matamoros RN Safety Promotion/Fall Prevention: safety round/check completed Taken 01/26/20251999 by Hoang Matamoros RN Safety Promotion/Fall Prevention: safety round/check completed Intervention: Prevent Skin Injury Recent Flowsheet Documentation Taken 01/27/2025 06 by Hoang Matamoros RN Body Position: turned neutral head position neutral body alignment heels elevated Skin Protection: incontinence pads utilized silicone foam dressing in place transparent dressing maintained Taken 01/27/2025 0400 by Hoang Matamoros RN Body Position: turned left heels elevated Skin Protection: incontinence pads utilized silicone foam dressing in place transparent dressing maintained Taken 01/27/2025 0200 by Hoang Matamoros RN Body Position: turned neutral head position neutral body alignment heels elevated Skin Protection: incontinence pads utilized silicone foam dressing in place transparent dressing maintained Taken 01/27/2025 0000 by Hoang Matamoros RN Body Position: turned right heels elevated Skin Protection: incontinence pads utilized silicone foam dressing in place transparent dressing maintained Taken 01/26/2025 2200 by Hoang Matamoros RN Body Position: log-rolled Skin Protection: incontinence pads utilized silicone foam dressing in place transparent dressing maintained Taken 01/26/20251999 by Hoang Matamoros RN Body Position: neutral head position neutral body alignment heels elevated Skin Protection: incontinence pads utilized silicone foam dressing in place transparent dressing maintained Intervention: Prevent and Manage VTE (Venous Thromboembolism) Risk Recent Flowsheet Documentation Taken 01/27/2025 06 by Hoang Matamoros RN VTE Prevention/Management: bilateral SCDs (sequential compression devices) on Taken 01/27/2025 0400 by Hoang Matamorso RN VTE Prevention/Management: bilateral SCDs (sequential compression devices) on Taken 01/27/2025 0200 by Hoang Matamoros RN VTE Prevention/Management: bilateral SCDs (sequential compression devices) on Taken 01/27/2025 0000 by Hoang Matamoros RN VTE Prevention/Management: bilateral SCDs (sequential compression devices) on Taken 01/26/2025 2200 by Hoang Matamoros RN VTE Prevention/Management: bilateral SCDs (sequential compression devices) on Taken 01/26/20251999 by Hoang Matamoros RN VTE Prevention/Management: bilateral SCDs (sequential compression devices) on Intervention: Prevent Infection Recent Flowsheet Documentation Taken 01/27/2025 0600 by Hoang Matamoros RN Infection Prevention: environmental surveillance performed Taken 01/27/2025 0400 by Hoang Matamoros RN Infection Prevention: environmental surveillance performed Taken 01/27/2025 0200 by Hoang Mtaamoros RN Infection Prevention: environmental surveillance performed Taken 01/27/2025 0000 by Hoang Matamoros RN Infection Prevention: environmental surveillance performed Taken 01/26/2025 2200 by Hoang Matamoros RN Infection Prevention: environmental surveillance performed Taken 01/26/20251999 by Hoang Matamoros RN Infection Prevention: environmental surveillance performed Goal: Optimal Comfort and Wellbeing Outcome: Not Progressing Intervention: Provide Person-Centered Care Recent Flowsheet Documentation Taken 01/27/2025 06 by Hoang Matamoros RN Trust Relationship/Rapport: care explained reassurance provided Taken 01/27/2025 0400 by Hoang Matamoros RN Trust Relationship/Rapport: care explained reassurance provided Taken 01/27/2025 0200 by Hoang Matamoros RN Trust Relationship/Rapport: care explained reassurance provided Taken 01/27/2025 0000 by Hoang Matamoros RN Trust Relationship/Rapport: care explained reassurance provided Taken 01/26/2025 2200 by Hoang Matamoros RN Trust Relationship/Rapport: care explained reassurance provided Taken 01/26/20251999 by Hoang Matamoros RN Trust Relationship/Rapport: care explained reassurance provided Goal: Readiness for Transition of Care Outcome: Not Progressing Problem: Skin Injury Risk Increased Goal: Skin Health and Integrity Outcome: Not Progressing Intervention: Optimize Skin Protection Recent Flowsheet Documentation Taken 01/27/2025 06 by Hoang Matamoros RN Activity Management: bedrest Pressure Reduction Techniques: heels elevated off bed pressure points protected weight shift assistance provided Head of Bed (HOB) Positioning: HOB at 30-45 degrees Pressure Reduction Devices: specialty bed utilized pressure-redistributing mattress utilized positioning supports utilized heel offloading device utilized foam padding utilized Skin Protection: incontinence pads utilized silicone foam dressing in place transparent dressing maintained Taken 01/27/2025 0400 by Hoang Matamoros RN Activity Management: bedrest Pressure Reduction Techniques: heels elevated off bed pressure points protected weight shift assistance provided Head of Bed (HOB) Positioning: HOB at 30-45 degrees Pressure Reduction Devices: specialty bed utilized pressure-redistributing mattress utilized positioning supports utilized heel offloading device utilized foam padding utilized Skin Protection: incontinence pads utilized silicone foam dressing in place transparent dressing maintained Taken 01/27/2025 0200 by Hoang Matamoros RN Activity Management: bedrest Pressure Reduction Techniques: heels elevated off bed pressure points protected weight shift assistance provided Head of Bed (HOB) Positioning: HOB at 30-45 degrees Pressure Reduction Devices: specialty bed utilized pressure-redistributing mattress utilized positioning supports utilized heel offloading device utilized foam padding utilized Skin Protection: incontinence pads utilized silicone foam dressing in place transparent dressing maintained Taken 01/27/2025 0000 by Hoang Matamoros RN Activity Management: bedrest Pressure Reduction Techniques: heels elevated off bed pressure points protected weight shift assistance provided Head of Bed (HOB) Positioning: HOB at 30-45 degrees Pressure Reduction Devices: specialty bed utilized pressure-redistributing mattress utilized positioning supports utilized heel offloading device utilized foam padding utilized Skin Protection: incontinence pads utilized silicone foam dressing in place transparent dressing maintained Taken 01/26/2025 2200 by Hoang Matamoros RN Activity Management: bedrest Pressure Reduction Techniques: heels elevated off bed pressure points protected weight shift assistance provided Head of Bed (HOB) Positioning: [facility] flat Pressure Reduction Devices: specialty bed utilized pressure-redistributing mattress utilized positioning supports utilized heel offloading device utilized foam padding utilized Skin Protection: incontinence pads utilized silicone foam dressing in place transparent dressing maintained Taken 01/26/2025 2000 by Hoang Matamoros RN Activity Management: bedrest Pressure Reduction Techniques: heels elevated off bed pressure points protected weight shift assistance provided Head of Bed (HOB) Positioning: HOB at 30-45 degrees Pressure Reduction Devices: specialty bed utilized pressure-redistributing mattress utilized positioning supports utilized heel offloading device utilized foam padding utilized Skin Protection: incontinence pads utilized silicone foam dressing in place transparent dressing maintained Problem: Fall Injury Risk Goal: Absence of Fall and Fall-Related Injury Outcome: Not Progressing Intervention: Identify and Manage Contributors Recent Flowsheet Documentation Taken 01/27/2025 0600 by Hoang Matamoros RN Medication Review/Management: medications reviewed Taken 01/27/2025 0400 by Hoang Matamoros RN Medication Review/Management: medications reviewed Taken 01/27/2025 0200 by Hoang Matamoros RN Medication Review/Management: medications reviewed Taken 01/27/2025 0000 by Hoang Matamoros RN Medication Review/Management: medications reviewed Taken 01/26/2025 220 by Hoang Matamoros RN Medication Review/Management: medications reviewed Taken 01/26/20251999 by Hoang Matamoros RN Medication Review/Management: medications reviewed Intervention: Promote Injury-Free Environment Recent Flowsheet Documentation Taken 01/27/2025 06 by Hoang Matamoros RN Safety Promotion/Fall Prevention: safety round/check completed Taken 01/27/2025 0400 by Hoang Matamoros RN Safety Promotion/Fall Prevention: safety round/check completed Taken 01/27/2025 0200 by Hoang Matamoros RN Safety Promotion/Fall Prevention: safety round/check completed Taken 01/27/2025 0000 by Hoang Matamoros RN Safety Promotion/Fall Prevention: safety round/check completed Taken 01/26/2025 220 by Hoang Matamoros RN Safety Promotion/Fall Prevention: safety round/check completed Taken 01/26/20251999 by Hoang Matamoros RN Safety Promotion/Fall Prevention: safety round/check completed Problem: Restraint, Nonviolent Goal: Absence of Harm or Injury Outcome: Not Progressing Intervention: Implement Least Restrictive Safety Strategies Recent Flowsheet Documentation Taken 01/27/2025 06 by Hoang Matamoros RN Control Operator Protection: IV pole/bag removed from visual field tubing secured Diversional Activities: television Taken 01/27/2025 0400 by Hoang Matamoros RN Control Operator Protection: IV pole/bag removed from visual field tubing secured Diversional Activities: television Taken 01/27/2025 0200 by Hoang Matamoros RN Control Operator Protection: IV pole/bag removed from visual field tubing secured Diversional Activities: television Taken 01/27/2025 0000 by Hoang Matamoros RN Control Operator Protection: IV pole/bag removed from visual field tubing secured Diversional Activities: television Taken 01/26/2025 2306 by Hoang Matamoros RN Control Operator Protection: IV pole/bag removed from visual field tubing secured Diversional Activities: television Taken 01/26/2025 220 by Hoang Matamoros RN Diversional Activities: television Taken 01/26/20251999 by Hoang Matamoros RN Diversional Activities: television Intervention: Protect Dignity, Rights and Personal Wellbeing Recent Flowsheet Documentation Taken 01/27/2025 0600 by Hoang Matamoros RN Trust Relationship/Rapport: care explained reassurance provided Taken 01/27/2025 0400 by Hoang Matamoros RN Trust Relationship/Rapport: care explained reassurance provided Taken 01/27/2025 0200 by Hoang Matamoros RN Trust Relationship/Rapport: care explained reassurance provided Taken 01/27/2025 0000 by Hoang Matamoros RN Trust Relationship/Rapport: care explained reassurance provided Taken 01/26/2025 220 by Hoang Matamoros RN Trust Relationship/Rapport: care explained reassurance provided Taken 01/26/20251999 by Hoang Matamoros RN Trust Relationship/Rapport: care explained reassurance provided Intervention: Protect Skin and Joint Integrity Recent Flowsheet Documentation Taken 01/27/2025 06 by Hoang Matamoros RN Body Position: turned neutral head position neutral body alignment heels elevated Skin Protection: incontinence pads utilized silicone foam dressing in place transparent dressing maintained Taken 01/27/2025 0400 by Hoang Matamoros RN Body Position: turned left heels elevated Skin Protection: incontinence pads utilized silicone foam dressing in place transparent dressing maintained Taken 01/27/2025 0200 by Hoang Matamoros RN Body Position: turned neutral head position neutral body alignment heels elevated Skin Protection: incontinence pads utilized silicone foam dressing in place transparent dressing maintained Taken 01/27/2025 0000 by Hoang Matamoros RN Body Position: turned right heels elevated Skin Protection: incontinence pads utilized silicone foam dressing in place transparent dressing maintained Taken 01/26/2025 2200 by Hoang Matamoros RN Body Position: log-rolled Skin Protection: incontinence pads utilized silicone foam dressing in place transparent dressing maintained Taken 01/26/20251999 by Hoang Matamoros RN Body Position: neutral head position neutral body alignment heels elevated Skin Protection: incontinence pads utilized silicone foam dressing in place transparent dressing maintained Goal Outcome Evaluation: documented in this encounter ED Notes * Daniel Ocampo MD - 01/26/2025 5:25 PM EDTAssociated Order(s): Critical Care; Intubation Subjective History of Present Illness 69-year-old male presents via EMS to be evaluated for altered mental status. Of note, the patient is unable to provide me with any useful history at this time. I am currently awaiting arrival of family to corroborate his history as his history is obtained only by speaking with EMS personnel that brought him in. According to EMS personnel, the patient went to his local clinic today in [place], [place] for unknown reasons. While there, he became diaphoretic and was complaining of nausea and then reportedly had a syncopal episode and became unresponsive. As a result, EMS was called. On their arrival, the patient was not hypoglycemic. No response to Narcan. He became increasingly somnolent andwas brought here to the ED for further evaluation and treatment. Review of Systems Unable to perform ROS: Mental status change Psychiatric/Behavioral: Positive for confusion. Past Medical History: Diagnosis Date ??? Hyperlipidemia 10/16/2017 ??? Hypertension ??? Stroke ??? Type 2 diabetes mellitus 01/26/2025 No Known Allergies Past Surgical History: Procedure Laterality Date ??? CARDIAC CATHETERIZATION 2012 HERNIA REPAIR 1985 & 1989 abdominal ??? INTERVENTIONAL RADIOLOGY PROCEDURE Bilateral 06/14/2021 Procedure: Carotid Cerebral Angiogram; Surgeon: Satinder Vazquez MD; Location: [facility]ATH [facility]IV[facility]; Service: Interventional Radiology; Laterality: Bilateral; ??? TUMOR REMOVAL Left FATTY TUMOR REMOVED FROM L SHOULDER History reviewed. No pertinent family history. Social History Socioeconomic History ??? Marital status: Tobacco Use ??? Smoking status: Former ??? Smokeless tobacco: Current Types: Chew ??? Tobacco comments: QUIT SMOKING IN 1981; QUIT CHEWING IN SPRING 2020 Substance and Sexual Activity ??? Alcohol use: Yes ??? Drug use: Defer ??? Sexual activity: Defer Objective Physical Exam Vitals and nursing note reviewed. Constitutional: Appearance: He is well-developed. He is obese. He is not diaphoretic. Comments: Ill-appearing obese male, unresponsive HENT: Head: Normocephalic and atraumatic. Eyes: Pupils: Pupils are equal, round, and reactive to light. Neck: Vascular: No JVD. Cardiovascular: Rate and Rhythm: Normal rate and regular rhythm. Heart sounds: Normal heart sounds. No murmur heard. No friction rub. No gallop. Pulmonary: Effort: Pulmonary effort is normal. No respiratory distress. Breath sounds: Normal breath sounds. No wheezing or rales. Abdominal: General: Bowel sounds are normal. There is no distension. Palpations: Abdomen is soft. There is no mass. Tenderness: There is no abdominal tenderness. There is no guarding. Musculoskeletal: General: No signs of injury. Skin: General: Skin is warm and dry. Coloration: Skin is not pale. Findings: No erythema or rash. Neurological: Comments: Unresponsive, no response to painful stimuli, GCS of 3 Psychiatric: Comments: Unable to adequately valuate Critical Care Performed by: Daniel Ocampo MD Authorized by: Daniel Ocampo MD Critical care provider statement: Critical care time (minutes): 41 Critical care was necessary to treat or prevent imminent or life-threatening deterioration of the following conditions: WAREHOUSE PROCESSOR failure or compromise Critical care was time spent personally by me on the following activities: Development of treatmentplan with patient or surrogate, discussions with consultants, evaluation of patient's response to treatment, examination of patient, obtaining history from patient or surrogate, ordering and performing treatments and interventions, ordering and review of laboratory studies, ordering and review of radiographic studies, pulse oximetry, re-evaluation of patient's condition and review of old charts Intubation Date/Time: 01/26/2025 5:27 PM Performed by: Daniel Ocampo MD Authorized by: Daniel Ocampo MD Consent: Consent obtained: Emergent situation Pre-procedure details: Indications: airway protection and altered consciousness Patient status: Unresponsive Look externally: no concerns Hyoid-thyroid distance: 2 or more finger widths Obstruction: none Pharmacologic strategy: RSI Induction agents: Etomidate Paralytics: Rocuronium Procedure details: Preoxygenation: Bag valve mask CPR in progress: no Number of attempts: 2 Successful intubation attempt details: Intubation method: Oral Intubation technique: video assisted Laryngoscope blade: Mac 4 Bougie used: no Grade view: II Tube size (mm): 7.5 Tube type: Cuffed Tube visualized through cords: yes First unsuccessful intubation attempt details: Intubation method: Oral Intubation technique: Video assisted Laryngoscope blade: Mac 4 Bougie used: no Grade view: II Tube size (mm): 7.5 Tube type: Cuffed Ventilation between 1st and 2nd attempt: yes with extraglottic device Tube visualized through cords: yes Placement assessment: ETT at teeth/gumline (cm): 22 Tube secured with: Adhesive tape and ETT wilkins Breath sounds: Equal Placement verification: chest rise, colorimetric ETCO2, CXR verification, direct visualization, equal breath sounds and tube exhalation CXR findings: Appropriate position Post-procedure details: Procedure completion: Tolerated well, no immediate complications ED Course ED Course as of 01/26/251732Jan 26, [id number] 69-year-old male presents via EMS to be evaluated for altered mental status. Of note, the patient is unable to provide me with any useful history at this time. Per EMS personnel, the patient went to his local clinic today in [place], [place] for unknown reasons. While there, he became diaphoretic and was complaining of nausea and then reportedly had a syncopal episode and became unresponsive. As a result, EMS was called. On their arrival, the patient was not hypoglycemic. No response to Narcan. He became increasingly somnolent and was brought here for further evaluation and treatment. On arrival, the patient is unresponsive with a GCS of 3. No response to painful stimuli whatsoever. Af ter initially evaluating the patient, I decided to proceed with emergent intubation for airway protection. Using the glide scope, the patient was intubated. [DD] 1730 I personally and independently viewed the patient's x-ray images myself, and I am in agreementwith the radiologist's reading for final interpretation, particularly regarding adequate placement of ET tube. [DD] 1730 Differential diagnosis is quite broad. We will obtain labs and advanced imaging and will seek admission to the hospital pending return of workup. [DD] 1730 Labs interpreted independently by me are bland/unrevealing. [DD] 1730 I personally and independently reviewed the patient's CT images and findings, and I am in agreement with the radiologist regarding CT interpretation--particularly there is no emergent intracranial process noted. No emergent vascular process noted. [DD] 3301 No clear etiology found for the patient's profound somnolence and altered mental status. 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 His family arrived and corroborated that he was in his normal state of health earlier this morning. I reached out to our stroke navigator, Diana Garcia, and she is seeing the patient in consult. I discuss ed the patient's case with our mental health social worker, Dr. Baca, and the patient will be admitted to theICU under his care for further evaluation and treatment. The patient is hemodynamically stable at this time and family is aware/agreeable with the plan. [DD] ED Course User Index [DD] Daniel Ocampo MD Total (NIH Stroke Scale): 11 Recent Results (from the past 24 hours) Comprehensive Metabolic Panel Collection Time: 01/26/25 11:42 AM Specimen: Blood Result Value Ref Range Glucose 120 (H) 65 - 99 mg/dL BUN 13.3 8.0 - 23.0 mg/dL Creatinine 0.89 0.76 - 1.27 mg/dL Sodium 138 136 - 145 mmol/L Potassium 4.1 3.5 - 5.2 mmol/L Chloride 104 98 - 107 mmol/L CO2 24.0 22.0 - 29.0 mmol/L Calcium 9.9 8.6 - 10.5 mg/dL Total Protein 7.6 6.0 - 8.5 g/dL Albumin 4.0 3.5 - 5.2 g/dL ALT (SGPT) 35 1 - 41 U/L AST (SGOT) 34 1 - 40 U/L Alkaline Phosphatase 86 39 - 117 U/L Total Bilirubin 0.6 0.0 - 1.2 mg/dL Globulin 3.6 gm/dL A/G Ratio 1.1 g/dL BUN/Creatinine Ratio 14.9 7.0 - 25.0 Anion Gap 10.0 5.0 - 15.0 mmol/L eGFR 93.9 >60.0 mL/min/1.73 High Sensitivity Troponin T Collection Time: 01/26/25 11:42 AM Specimen: Blood Result Value Ref Range HS Troponin T 11 <22 ng/L Magnesium Collection Time: 01/26/25 11:42 AM Specimen: Blood Result Value Ref Range Magnesium 2.1 1.6 - 2.4 mg/dL Green Top (Gel) Collection Time: 01/26/25 11:42 AM Result Value Ref Range Extra Tube Hold for add-ons. Lavender Top Collection Time: 01/26/25 11:42 AM Result Value Ref Range Extra Tube hold for add-on Gold Top - SST Collection Time: 01/26/25 11:42 AM Result Value Ref Range Extra Tube Hold for add-ons. Escudero Top Collection Time: 01/26/25 11:42 AM Result Value Ref Range Extra Tube Hold for add-ons. Light Blue Top Collection Time: 01/26/25 11:42 AM Result Value Ref Range Extra Tube Hold for add-ons. CBC Auto Differential Collection Time: 01/26/25 11:42 AM Specimen: Blood Result Value Ref Range WBC 6.32 3.40 - 10.80 10*3/mm3 RBC 4.49 4.14 - 5.80 10*6/mm3 Hemoglobin 15.2 13.0 - 17.7 g/dL Hematocrit 45.7 37.5 - 51.0 % MCV 101.8 (H) 79.0 - 97.0 fL MCH 33.9 (H) 26.6 - 33.0 pg MCHC 33.3 31.5 - 35.7 g/dL RDW 13.0 12.3 - 15.4 % RDW-SD 48.6 37.0 - 54.0 fl MPV 9.5 6.0 - 12.0 fL Platelets 146 140 - 450 10*3/mm3 Neutrophil % 61.6 42.7 - 76.0 % Lymphocyte % 23.9 19.6 - 45.3 % Monocyte % 7.9 5.0 - 12.0 % Eosinophil % 5.5 0.3 - 6.2 % Basophil % 0.8 0.0 - 1.5 % Immature Grans % 0.3 0.0 - 0.5 % Neutrophils, Absolute 3.89 1.70 - 7.00 10*3/mm3 Lymphocytes, Absolute 1.51 0.70 - 3.10 10*3/mm3 Monocytes, Absolute 0.50 0.10 - 0.90 10*3/mm3 Eosinophils, Absolute 0.35 0.00 - 0.40 10*3/mm3 Basophils, Absolute 0.05 0.00 - 0.20 10*3/mm3 Immature Grans, Absolute 0.02 0.00 - 0.05 10*3/mm3 nRBC 0.0 0.0 - 0.2 /100 WBC BNP Collection Time: 01/26/25 11:42 AM Specimen: Blood Result Value Ref Range proBNP 93.0 0.0 - 900.0 pg/mL Lactic Acid, Plasma Collection Time: 01/26/25 11:42 AM Specimen: Blood Result Value Ref Range Lactate 1.8 0.5 - 2.0 mmol/L Procalcitonin Collection Time: 01/26/25 11:42 AM Specimen: Blood Result Value Ref Range Procalcitonin 0.07 0.00 - 0.25 ng/mL Acetaminophen Level Collection Time: 01/26/25 11:42 AM Specimen: Blood Result Value Ref Range Acetaminophen <5.0 0.0 - 30.0 mcg/mL Ethanol Collection Time: 01/26/25 11:42 AM Specimen: Blood Result Value Ref Range Ethanol <10 0 - 10 mg/dL Salicylate Level Collection Time: 01/26/25 11:42 AM Specimen: Blood Result Value Ref Range Salicylate <0.3 <=30.0 mg/dL TSH Rfx On Abnormal To Free T4 Collection Time: 01/26/25 11:42 AM Specimen: Blood Result Value Ref Range TSH 5.390 (H) 0.270 - 4.200 uIU/mL T4, Free Collection Time: 01/26/25 11:42 AM Specimen: Blood Result Value Ref Range Free T4 0.91 (L) 0.92 - 1.68 ng/dL POC CHEM 8 Collection Time: 01/26/25 11:48 AM Specimen: Blood Result Value Ref Range Glucose 120 70 - 130 mg/dL BUN 14 8 - 26 mg/dL Creatinine 1.00 0.60 - 1.30 mg/dL Sodium 142 138 - 146 mmol/L POC Potassium 4.0 3.5 - 4.9 mmol/L Chloride 103 98 - 109 mmol/L Total CO2 25 24 - 29 mmol/L Hemoglobin 15.6 12.0 - 17.0 g/dL Hematocrit 46 38 - 51 % Ionized Calcium 1.36 (H) 1.20 - 1.32 mmol/L eGFR 82.5 >60.0 mL/min/1.73 Ammonia Collection Time: 01/26/25 12:02 PM Specimen: Arm, Right; Blood Result Value Ref Range Ammonia 22 16 - 60 umol/L Respiratory Panel PCR w/COVID-19(SARS-CoV-2) SAMREEN/PIETRO/NA/PAD/COR/ALEXANDER In-House, RN OUTPATIENT SURGERY Swab in UTM/VTM, 2 HR TAT - Swab, Nasopharynx Collection Time: 01/26/25 12:06 PM Specimen: Nasopharynx; Swab Result Value Ref Range ADENOVIRUS, PCR Not Detected Not Detected Coronavirus 229E Not Detected Not Detected Coronavirus HKU1 Not Detected Not Detected Coronavirus NL63 Not Detected Not Detected Coronavirus OC43 Not Detected Not Detected COVID19 Not Detected Not Detected - Ref. Range Human Metapneumovirus Not Detected Not Detected Human Rhinovirus/Enterovirus Not Detected Not Detected Influenza A PCR Not Detected Not Detected Influenza B PCR Not Detected Not Detected Parainfluenza Virus 1 Not Detected Not Detected Parainfluenza Virus 2 Not Detected Not Detected Parainfluenza Virus 3 Not Detected Not Detected Parainfluenza Virus 4 Not Detected Not Detected RSV, PCR Not Detected Not Detected Bordetella pertussis pcr Not Detected Not Detected Bordetella parapertussis PCR Not Detected Not Detected Chlamydophila pneumoniae PCR Not Detected Not Detected Mycoplasma pneumo by PCR Not Detected Not Detected ECG 12 Lead Altered Mental Status Collection Time: 01/26/25 12:15 PM Result Value Ref Range QT Interval 416 ms QTC Interval 432 ms Urinalysis With Culture If Indicated - Indwelling Urethral Catheter Collection Time: 01/26/25 1:53 PM Specimen: Indwelling Urethral Catheter; Urine Result Value Ref Range Color, UA Yellow Yellow, Straw Appearance, UA Clear Clear pH, UA 6.0 5.0 - 8.0 Specific [place], UA >1.030 (H) 1.005 - 1.030 Glucose, UA >=1000 mg/dL (3+) (A) Negative Ketones, UA Negative Negative Bilirubin, UA Negative Negative Blood, UA Trace (A) Negative Protein, UA Trace (A) Negative Leuk Esterase, UA Negative Negative Nitrite, UA Negative Negative Urobilinogen, UA 0.2 E.U./dL 0.2 - 1.0 E.U./dL Urine Drug Screen - Indwelling Urethral Catheter Collection Time: 01/26/25 1:53 PM Specimen: Indwelling Urethral Catheter; Urine Result Value Ref Range THC, Screen, Urine Negative Negative Phencyclidine (PCP), Urine Negative Negative Cocaine Screen, Urine Negative Negative Methamphetamine, Ur Negative Negative Opiate Screen Negative Negative Amphetamine Screen, Urine Negative Negative Benzodiazepine Screen, Urine Negative Negative Tricyclic Antidepressants Screen Negative Negative Methadone Screen, Urine Negative Negative Barbiturates Screen, Urine Negative Negative Oxycodone Screen, Urine Negative Negative Buprenorphine, Screen, Urine Negative Negative High Sensitivity Troponin T 1Hr Collection Time: 01/26/25 1:53 PM Specimen: Blood Result Value Ref Range HS Troponin T 11 <22 ng/L Troponin T Numeric Delta 0 Abnormal if >/=3 ng/L Fentanyl, Urine - Indwelling Urethral Catheter Collection Time: 01/26/25 1:53 PM Specimen: Indwelling Urethral Catheter; Urine Result Value Ref Range Fentanyl, Urine Negative Negative Urinalysis, Microscopic Only - Indwelling Urethral Catheter Collection Time: 01/26/25 1:53 PM Specimen: Indwelling Urethral Catheter; Urine Result Value Ref Range RBC, UA 3-5 (A) None Seen, 0-2 /HPF WBC, UA 3-5 (A) None Seen, 0-2 /HPF Bacteria, UA None Seen None Seen /HPF Squamous Epithelial Cells, UA 0-2 None Seen, 0-2 /HPF Hyaline Casts, UA 0-2 None Seen /LPF Methodology Automated Microscopy Blood Gas, Arterial With Co-Ox Collection Time: 01/26/25 3:17 PM Specimen: Arterial Blood Result Value Ref Range Site Right Radial Michele's Test N/A pH, Arterial 7.385 7.350 - 7.450 pH units pCO2, Arterial 42.1 35.0 - 45.0 mm Hg pO2, Arterial 318.0 (H) 83.0 - 108.0 mm Hg HCO3, Arterial 25.2 20.0 - 26.0 mmol/L Base Excess, Arterial 0.0 0.0 - 2.0 mmol/L Hemoglobin, Blood Gas 15.0 13.5 - 17.5 g/dL Hematocrit, Blood Gas 46.0 38.0 - 51.0 % Oxyhemoglobin 99.0 94 - 99 % Methemoglobin 0.30 0.00 - 1.50 % Carboxyhemoglobin 1.1 0 - 2 % CO2 Content 26.5 22 - 33 mmol/L Temperature 37.0 Barometric Pressure for Blood Gas Modality Ventilator FIO2 100 % Ventilator Mode VC+/AC Set Tidal Volume 0.49 Rate 16 Breaths/minute PEEP 8.0 pH, Temp Corrected 7.385 pH Units pCO2, Temperature Corrected 42.1 35 - 48 mm Hg pO2, Temperature Corrected 318 (H) 83 - 108 mm Hg POC Glucose Once Collection Time: 01/26/25 4:39 PM Specimen: Blood Result Value Ref Range Glucose 98 70 - 130 mg/dL Note: In addition to lab results from this visit, the labs listed above may include labs taken at another facility or during a different encounter within the last 24 hours. Please correlate lab timeswith ED admission and discharge times for further clarification of the services performed during this visit. CT Angiogram Head w AI Analysis of LVO Final Result Impression: Normal cerebral perfusion without evidence of core infarct or ischemic tissue at risk. No abrupt cut off/large vessel occlusion, flow-limiting stenosis, dissection, or aneurysm in the head or neck. Consolidation of the right upper lobe. CTA chest exam for complete details. Please refer to dedicated Electronically Signed: Ramin Dow MD 01/26/2025 1:57 PM EDT Workstation ID: [id number] CT CEREBRAL PERFUSION WITH & WITHOUT CONTRAST Final Result Impression: Normal cerebral perfusion without evidence of core infarct or ischemic tissue at risk. No abrupt cut off/large vessel occlusion, flow-limiting stenosis, dissection, or aneurysm in the head or neck. Consolidation of the right upper lobe. CTA chest exam for complete details. Please refer to dedicated Electronically Signed: Ramin Dow MD 01/26/2025 1:57 PM EDT Workstation ID: [id number] CT Angiogram Neck Final Result Impression: Normal cerebral perfusion without evidence of core infarct or ischemic tissue at risk. No abrupt cut off/large vessel occlusion, flow-limiting stenosis, dissection, or aneurysm in the head or neck. Consolidation of the right upper lobe. CTA chest exam for complete details. Please refer to dedicated Electronically Signed: Ramin Dow MD 01/26/2025 1:57 PM EDT Workstation ID: [id number] CT Angiogram Chest Pulmonary Embolism Final Result Impression: Chest: - Within the confines of artifact, no convincing evidence of pulmonary embolism. - Multifocal consolidative and linear airspace disease, most pronounced within the right upper lungwhere there is also areas of groundglass attenuation, suspected to be a combination of pneumonia and atelectasis. - Endotracheal tube in place. Abdomen/pelvis: - Within the confines of artifact, no acute findings. - Morphologic changes of cirrhosis without ascites. - Additional chronic/ancillary findings as above. Electronically Signed: Cj Melendrez MD 01/26/2025 2:17 PM EDT Workstation ID: [id number] CT Abdomen Pelvis With Contrast Final Result Impression: Chest: - Within the confines of artifact, no convincing evidence of pulmonary embolism. - Multifocal consolidative and linear airspace disease, most pronounced within the right upper lungwhere there is also areas of groundglass attenuation, suspected to be a combination of pneumonia and atelectasis. - Endotracheal tube in place. Abdomen/pelvis: - Within the confines of artifact, no acute findings. - Morphologic changes of cirrhosis without ascites. - Additional chronic/ancillary findings as above. Electronically Signed: Cj Melendrez MD 01/26/2025 2:17 PM EDT Workstation ID: [id number] CT Head Without Contrast Final Result Impression: 1.No acute intracranial abnormality identified. 2.Mild involutional changes. 3.Small air-fluid levels in the bilateral maxillary and ethmoid sinuses. Endotracheal tube is seen. Electronically Signed: Alexandru Campuzano MD 01/26/2025 1:08 PM EDT Workstation ID: [id number] XR Chest 1 View Final Result Impression: Endotracheal tube tip is 1.5 cm above the thor. Electronically Signed: Cj Melendrez MD 01/26/2025 12:31 PM EDT Workstation ID: [id number] XR Chest 1 View (Results Pending) XR Chest 1 View (Results Pending) MRI Brain Without Contrast (Results Pending) Vitals: 01/26/25 1500 01/26/25 1513 01/26/25 1600 01/26/25 1719 BP: 124/73 120/74 138/78 BP Location: Patient Position: Pulse: 62 61 63 61 Resp: Temp: TempSrc: SpO2: 98% 99% 98% 98% Weight: Height: Medications sodium chloride 0.9 % flush 10 mL (has no administration in time range) fentaNYL 2500 mcg/250 mL NS infusion (250 mcg/hr Intravenous Rate/Dose Change 01/26/25 1415) midazolam (VERSED) 100 mg in 100mL NS infusion (8 mg/hr Intravenous Rate/Dose Change 01/26/25 1415) iopamidol (ISOVUE-370) 76 % injection 100 mL (has no administration in time range) nitroglycerin (NITROSTAT) SL tablet 0.4 mg (has no administration in time range) sodium chloride 0.9 % flush 10 mL (has no administration in time range) sodium chloride 0.9 % flush 10 mL (has no administration in time range) sodium chloride 0.9 % infusion 40 mL (has no administration in time range) mupirocin (BACTROBAN) 2 % nasal ointment 1 Application (1 Application Each Nare Given 01/26/25 155) sennosides-docusate (PERICOLACE) 8.6-50 MG per tablet 2 tablet (has no administration in time range) And polyethylene glycol (MIRALAX) packet 17 g (has no administration in time range) And bisacodyl (DULCOLAX) EC tablet 5 mg (has no administration in time range) And bisacodyl (DULCOLAX) suppository 10 mg (has no administration in time range) dextrose (GLUTOSE) oral gel 15 g (has no administration in time range) dextrose (D50W) (25 g/50 mL) IV injection 25 g (has no administration in time range) glucagon (GLUCAGEN) injection 1 mg (has no administration in time range) insulin regular (humuLIN R,novoLIN R) injection 2-9 Units (has no administration in time range) pantoprazole (PROTONIX) injection 40 mg (40 mg Intravenous Given 01/26/25 155) miconazole (MICOTIN) 2 % powder 1 Application (has no administration in time range) atorvastatin (LIPITOR) tablet 80 mg (has no administration in time range) aspirin chewable tablet 81 mg (has no administration in time range) Or aspirin suppository 300 mg (has no administration in time range) etomidate (AMIDATE) injection (40 mg Intravenous Given 01/26/25 1141) rocuronium (ZEMURON) injection (100 mg Intravenous Given 01/26/25 1141) iopamidol (ISOVUE-370) 76 % injection 100 mL (100 mL Intravenous Given 01/26/25 1337) iopamidol (ISOVUE-370) 76 % injection 150 mL (115 mL Intravenous Given 01/26/25 1340) ECG/EMG Results (last 24 hours) Procedure Component Value Units Date/Time Telemetry Scan [[id number]] Resulted: 01/26/25 1218 Updated: 01/26/25 1236 ECG 12 Lead Altered Mental Status [[id number]] Collected: 01/26/25 1215 Updated: 01/26/25 1635 QT Interval 416 ms QTC Interval 432 ms Narrative: Test Reason : Altered Mental Status Blood Pressure : */* mmHG Vent. Rate : 65 BPM Atrial Rate : 65 BPM P-R Int : 206 ms QRS Dur : 106 ms QT Int : 416 ms P-R-T Axes : 54 39 29 degrees QTcB Int : 432 ms Normal sinus rhythm Normal ECG No previous ECGs available Confirmed by MD Ocampo Michael ([id number]) on 01/26/2025 4:34:38 PM Referred By: ed Confirmed By: Rafita Ocampo MD Telemetry Scan Final Result ECG 12 Lead Altered Mental Status Final Result Test Reason : Altered Mental Status Blood Pressure : */* mmHG Vent. Rate : 65 BPM Atrial Rate : 65 BPM P-R Int : 206 ms QRS Dur : 106 ms QT Int : 416 ms P-R-T Axes : 54 39 29 degrees QTcB Int : 432 ms Normal sinus rhythm Normal ECG No previous ECGs available Confirmed by MD Ocampo Michael ([id number]) on 01/26/2025 4:34:38 PM Referred By: edmd Confirmed By: Rafita Ocampo MD ECG 12 Lead Altered Mental Status (Results Pending) Medical Decision Making Amount and/or Complexity of Data Reviewed Labs: ordered. Radiology: ordered. ECG/medicine tests: ordered. Risk Prescription drug management. Decision regarding hospitalization. Final diagnoses: Altered mental status, unspecified altered mental status type Acute encephalopathy Acute respiratory failure, unspecified whether with hypoxia or hypercapnia ED Disposition ED Disposition ED Disposition Decision to Admit Condition -- Comment Level of Care: Critical Care [6] Admitting Physician: NAHUN BACA [[id number]] Attending Physician: NAHUN BACA [[id number]] No follow-up provider specified. Medication List No changes were made to your prescriptions during this visit. Daniel Ocampo MD 01/26/25 1733 documented in this encounter Miscellaneous Notes * Case Management/Social Work - Vivian Escudero MSW - 02/02/2025 1:59 PM EDT Case Management Discharge Note Final Note: Pt has been accepted by [facility] and they will follow up with pt at home. Pt'sfamily to provide transportation home. Pt also provided with a rolling walker from [employer]. Selected Continued Care - Admitted Since 01/26/2025 Destination No services have been selected for the patient. Durable Medical Equipment No services have been selected for the patient. Dialysis/Infusion No services have been selected for the patient. Home Medical Care Service Provider Services Address Phone Fax Patient Preferred [facility] Home Nursing, Home Rehabilitation [address] [place] [address] [phone] -- Therapy No services have been selected for the patient. Community Resources No services have been selected for the patient. Community & DME No services have been selected for the patient. Final Discharge Disposition Code: 06 - home with home health care * Case Management/Social Work - Vivian Escudero MSW - 02/02/2025 12:50 PM EDT Continued Stay Note [facility] Patient Name: Charles Gardner Today's Date: 02/02/2025 Admit Date: 01/26/2025 Plan: Home with HH vs IPR Discharge Plan Row Name 02/02/25 1250 Plan Plan Comments [facility] unable to accept pt at this time. Referral called to [facility]. Row Name 02/02/25 1201 Plan Plan Comments [employer] [facility] spoke with pt and pt's at bedside. Pt reports he still does not want to go to rehab and he would like to go home with HH. Pt reports that he is agreeable to getting a rollign walker as well since he does not have one at home. Rolling walker order called to Tarik with [employer].[facility]ER called and followed up with [facility] and they are no longer in service. [facility]T WE[facility]ER called referral to [facility]. Discharge Codes No documentation. Expected Discharge Date and Time Expected Discharge Date Expected Discharge Time Feb 02, 2025 Vivian C. Escudero, [employer]ER * Case Management/Social Work - Vivian Escudero MSW - 02/02/2025 12:03 PM EDT Continued Stay Note [facility] Patient Name: Charles Gardner Today's Date: 02/02/2025 Admit Date: 01/26/2025 Plan: Home with HH vs IPR Discharge Plan Row Name 02/02/25 1201 Plan Plan Comments [employer] spoke with pt and pt's at bedside. Pt reports he still does not want to go to rehab and he would like to go home with HH. Pt reports that he is agreeable to getting a rollign walker as well since he does not have one at home. Rolling walker order called to Tarik with [facility].BELT [facility]ER called and followed up with [facility] and they are no longer in service. BELT WEAVER called referral to [facility]. Discharge Codes No documentation. Expected Discharge Date and Time Expected Discharge Date Expected Discharge Time Feb 02, 2025 FARZANA Mattson * Therapy Treatment Note - Talisha Mirza OT - 02/02/2025 11:26 AM EDT Images from the original note were not included. Patient Name: Charles Gardner : 1955 Today's Date: 02/02/2025 Admit Date: 01/26/2025 Visit Dx: ICD-10-CM ICD-9-CM 1. Altered mental status, unspecified altered mental status type R41.82 780.97 2. Acute encephalopathy G93.40 348.30 3. Acute respiratory failure, unspecified whether with hypoxia or hypercapnia J96.00 518.81 4. Dysphagia, unspecified type R13.10 787.20 5. Obesity, morbid, BMI 40.0-49.9 E66.01 278.01 6. Encephalopathy, metabolic G93.41 348.31 7. Hypophosphatemia E83.39 275.3 8. Transient alteration of awareness R40.4 780.02 9. Essential hypertension I10 401.9 10. Asymptomatic stenosis of right vertebral artery I65.01 433.20 Patient Active Problem List Diagnosis Asymptomatic stenosis of right vertebral artery Hyperlipidemia Essential hypertension Type 2 diabetes mellitus Obesity, morbid, BMI 40.0-49.9 Hypophosphatemia Encephalopathy, metabolic Past Medical History: Diagnosis Date Hyperlipidemia 10/16/2017 Hypertension Stroke Type 2 diabetes mellitus 01/26/2025 Past Surgical History: Procedure Laterality Date CARDIAC CATHETERIZATION 2011 HERNIA REPAIR 1985 & 1989 abdominal INTERVENTIONAL RADIOLOGY PROCEDURE Bilateral 06/14/2021 Procedure: Carotid Cerebral Angiogram; Surgeon: Satinder Vazquez MD; Location: [facility]; Service: Interventional Radiology; Laterality: Bilateral; TUMOR REMOVAL Left FATTY TUMOR REMOVED FROM L SHOULDER General Information Row Name 02/02/25 1327 OT Time and Intention Document Type therapy note (daily note) -MR Mode of Treatment occupational therapy -MR Row Name 02/02/25 1327 General Information Patient Profile Reviewed yes -MR Existing Precautions/Restrictions fall;oxygen therapy device and L/min -MR Barriers to Rehab medically complex;previous functional deficit -MR Row Name 02/02/25 1327 Cognition Orientation Status (Cognition) oriented x 3 -MR Row Name 02/02/25 1327 Safety Issues/Impairments Affecting Functional Mobility Safety Issues Affecting Function (Mobility) awareness of need for assistance;insight into deficits/self-awareness;safety precaution awareness;safety precautions follow-through/compliance;judgment;positioning of assistive device -MR Impairments Affecting Function (Mobility) balance;coordination;endurance/activity tolerance;shortness of breath;strength;postural/trunk control -MR User Mehta (r) = Recorded By, (t) = Taken By, (c) = Cosigned By Initials Name Provider Type MR Talisha iMrza, OT Occupational Therapist Mobility/ADL's Row Name 02/02/25 1327 Bed Mobility Bed Mobility supine-sit -MR Supine-Sit [place] (Bed Mobility) standby assist -MR Assistive Device (Bed Mobility) head of bed elevated;bed rails -MR Comment, (Bed Mobility) Pt requiring extended time to advance to EOB. O2 sats maintained to >90%. -MR Row Name 02/02/25 1327 Transfers Transfers sit-stand transfer -MR Row Name 02/02/25 1327 Sit-Stand Transfer Sit-Stand [place] (Transfers) minimum assist (75% patient effort);verbal cues;nonverbal cues (demo/gesture) -MR Assistive Device (Sit-Stand Transfers) walker, front-wheeled -MR Row Name 02/02/25 1327 Functional Mobility Functional Mobility- Ind. Level contact guard assist;verbal cues required;nonverbal cues required (demo/gesture) -MR Functional Mobility- Device walker, front-wheeled -MR Functional Mobility-Distance (Feet) -- < HH distances w/in pt's room -MR Row Name 02/02/25 1327 Activities of Daily Living BADL Assessment/Intervention lower body dressing;upper body dressing;grooming -MR Row Name 02/02/25 132 Lower Body Dressing Assessment/Training Cottonwood Level (Lower Body Dressing) don;socks;maximum assist (25% patient effort) -MR Position (Lower Body Dressing) supine -MR [facility] Name 02/02/25 1327 Upper Body Dressing Assessment/Training [place] Level (Upper Body Dressing) don;minimum assist (75% patient effort) -MR Position (Upper Body Dressing) edge of bed sitting -MR Row Name 02/02/25 1327 Grooming Assessment/Training [place] Level (Grooming) wash face, hands;set up -MR Position (Grooming) supported sitting -MR User Mehta (r) = Recorded By, (t) = Taken By, (c) = Cosigned By Initials Name Provider Type Talisha Rob OT Occupational Therapist Obj/Interventions [facility] Name 02/02/25 133 Balance Balance Assessment sitting static balance;sitting dynamic balance;standing static balance;standing dynamic balance -MR Static Sitting Balance standby assist -MR Dynamic Sitting Balance standby assist -MR Position, Sitting Balance unsupported;sitting edge of bed;sitting in chair -MR Static Standing Balance contact guard -MR Dynamic Standing Balance contact guard -MR Position/Device Used, Standing Balance supported;walker, front-wheeled -MR Balance Interventions sitting;standing;sit to stand;supported;static;dynamic;minimal challenge -MR User Mehta (r) = Recorded By, (t) = Taken By, (c) = Cosigned By Initials Name Provider Type Talisha Rob OT Occupational Therapist Goals/Plan No documentation. Clinical Impression [facility] Name 02/02/25 1331 Pain Assessment Pretreatment Pain Rating 0/10 - no pain -MR Posttreatment Pain Rating 0/10 - no pain -[facility] Name 02/02/251330 Plan of Care Review Plan of Care Reviewed With patient;spouse -MR Progress improving -MR Outcome Evaluation Patient demonstrating improvements w/ bed mobility, transfers and activity tolerance. O2 sats maintained > 90% on RA. Continue to progress per current POC. -MR Row Name 02/02/251330 Therapy Assessment/Plan (OT) Criteria for Skilled Therapeutic Interventions Met (OT) yes;skilled treatment is necessary -MR Therapy Frequency (OT) daily -MR Row Name 02/02/25 133 Vital Signs Pre Systolic BP Rehab 134 -MR Pre Treatment Diastolic BP 76 -MR Post Systolic BP Rehab 134 -MR Post Treatment Diastolic BP 93 -MR Pretreatment Heart Rate (beats/min) 73 -MR Posttreatment Heart Rate (beats/min) 72 -MR Pre SpO2 (%) 95 -MR O2 Delivery Pre Treatment room air -MR O2 Delivery Intra Treatment room air -MR Post SpO2 (%) 93 -MR O2 Delivery Post Treatment room air -MR Pre Patient Position Supine -MR Intra Patient Position Standing -MR Post Patient Position Sitting -MR Row Name 02/02/251330 Positioning and Restraints Pre-Treatment Position in bed -MR Post Treatment Position chair -MR In Chair notified nsg;reclined;sitting;call light within reach;encouraged to call for assist;exit alarm on;waffle cushion;with family/caregiver -MR User Mehta (r) = Recorded By, (t) = Taken By, (c) = Cosigned By Initials Name Provider Type Talisha Rob OT Occupational Therapist Outcome Measures Row Name 02/02/251332 How much help from another is currently needed... Putting on and taking off regular lower body clothing? 2 -MR Bathing (including washing, rinsing, and drying) 2 -MR Toileting (which includes using toilet bed mcguire or urinal) 2 -MR Putting on and taking off regular upper body clothing 3 -MR Taking care of personal grooming (such as brushing teeth) 3 -MR Eating meals 4 -MR AM-PAC 6 Clicks Score (OT) 16 -MR Row Name 02/02/25 133 Functional Assessment Outcome Measure Options AM-PAC 6 Clicks Daily Activity (OT) -MR User Mehta (r) = Recorded By, (t) = Taken By, (c) = Cosigned By Initials Name Provider Type Talisha Rob OT Occupational Therapist Occupational Therapy Education Title: PT OT TRAY ROOM WORKER Therapies (In Progress) Topic: Occupational Therapy (In Progress) Point: ADL training (In Progress) Learning Progress Summary Patient Acceptance, E, NR by MR at 02/02/20251333 Family Acceptance, E, NR by MR at 02/02/20251333 Point: Precautions (In Progress) Learning Progress Summary Patient Acceptance, E, NR by MR at 02/02/20251333 Family Acceptance, E, NR by MR at 02/02/20251333 Point: Body mechanics (In Progress) Learning Progress Summary Patient Acceptance, E, NR by MR at 02/02/20251333 Family Acceptance, E, NR by MR at 02/02/20251333 User Mehta Initials Effective Dates Name Provider Type Discipline MR 03/14/22 - Talisha Mirza OT Occupational Therapist OT OT Recommendation and Plan Recommended discharge disposition is based on the functional assessment performed by PT/OT/Speech therapy (as applicable) and may not reflect the medical necessity determined by your provider or services covered by an individual patient's insurance plan or patient resource. Therapy Frequency (OT): daily Plan of Care Review Plan of Care Reviewed With: patient, spouse Progress: improving Outcome Evaluation: Patient demonstrating improvements w/ bed mobility, transfers and activity tolerance. O2 sats maintained > 90% on RA. Continue to progress per current POC. Time Calculation: Time Calculation- OT Row Name 02/02/251336 Time Calculation- OT OT Start Time 1126 -MR OT Received On 02/02/25 -MR Timed Charges 08014 - OT Therapeutic Activity Minutes 14 -MR 18016 - OT Self Care/Mgmt Minutes 10 -MR Total Minutes Timed Charges Total Minutes 24 -MR Total Minutes 24 -MR User Mehta (r) = Recorded By, (t) = Taken By, (c) = Cosigned By Initials Name Provider Type MR Talisha Mirza OT Occupational Therapist Therapy Charges for Today Code Description Service Date Service Provider Modifiers Qty 43828939129 HC OT THERAPEUTIC ACT EA 15 MIN 02/02/2025 Talisha Mirza OT GO 1 92179281019 HC OT SELF CARE/MGMT/TRAIN EA 15 MIN 02/02/2025 Talisha Mirza OT GO 1 Talisha Mirza OT 02/02/2025 * Therapy Treatment Note - Nida Mcdaniel, PT - 02/01/2025 2:25 PM EDT Patient Name: Charles Gardner : 1955 Today's Date: 02/01/2025 Admit Date: 01/26/2025 Visit Dx: ICD-10-CM ICD-9-CM 1. Altered mental status, unspecified altered mental status type R41.82 780.97 2. Acute encephalopathy G93.40 348.30 3. Acute respiratory failure, unspecified whether with hypoxia or hypercapnia J96.00 518.81 4. Dysphagia, unspecified type R13.10 787.20 Patient Active Problem List Diagnosis Asymptomatic stenosis of right vertebral artery Hyperlipidemia Essential hypertension Type 2 diabetes mellitus Obesity, morbid, BMI 40.0-49.9 Hypophosphatemia Encephalopathy, metabolic Past Medical History: Diagnosis Date Hyperlipidemia 10/16/2017 Hypertension Stroke Type 2 diabetes mellitus 01/26/2025 Past Surgical History: Procedure Laterality Date CARDIAC CATHETERIZATION 2012 HERNIA REPAIR 1985 & 1989 abdominal INTERVENTIONAL RADIOLOGY PROCEDURE Bilateral 06/14/2021 Procedure: Carotid Cerebral Angiogram; Surgeon: Satinder Vazquez MD; Location: [facility]; Service: Interventional Radiology; Laterality: Bilateral; TUMOR REMOVAL Left FATTY TUMOR REMOVED FROM L SHOULDER General Information Row Name 02/01/25 1454 Physical Therapy Time and Intention Document Type therapy note (daily note) - Mode of Treatment physical therapy;individual therapy - Row Name 02/01/25 1454 General Information Patient Profile Reviewed yes - Existing Precautions/Restrictions fall;oxygen therapy device and L/min - Barriers to Rehab medically complex;previous functional deficit - Row Name 02/01/25 1454 Cognition Orientation Status (Cognition) oriented x 3 - Row Name 02/01/25 1454 Safety Issues/Impairments Affecting Functional Mobility Safety Issues Affecting Function (Mobility) awareness of need for assistance;insight into deficits/self-awareness;safety precaution awareness;safety precautions follow-through/compliance;sequencing ab ilities;judgment;positioning of assistive device - Impairments Affecting Function (Mobility) balance;coordination;endurance/activity tolerance;shortness of breath;strength;postural/trunk control - User Mehta (r) = Recorded By, (t) = Taken By, (c) = Cosigned By Initials Name Provider Type Nida Mcdaniel PT Physical Therapist Mobility Row Name 02/01/25 1452 Bed Mobility Comment, (Bed Mobility) [facility] pre/post tx - Row Name 02/01/25 1455 Transfers Comment, (Transfers) VCs for hand placement and sequencing w/ FWW - Row Name 02/01/25 1459 Sit-Stand Transfer Sit-Stand [place] (Transfers) minimum assist (75% patient effort);1 person assist;verbal cues - Assistive Device (Sit-Stand Transfers) walker, front-wheeled - Row Name 02/01/25 1450 Gait/Stairs (Locomotion) [place] Level (Gait) minimum assist (75% patient effort);1 person assist;verbal cues - Assistive Device (Gait) walker, front-wheeled - Patient was able to Ambulate yes - Distance in Feet (Gait) 140 -LH Deviations/Abnormal Patterns (Gait) bilateral deviations;gait speed decreased;stride length decreased;sendy decreased;base of support, wide - Bilateral Gait Deviations forward flexed posture;heel strike decreased - Right Sided Gait Deviations leans right - Comment, (Gait/Stairs) Demo forward flexed posture w/ wide CAROLA. VCs for upright posture and body positioning within walker. Pt's posture worsens w/ fatigue. Pt tends to lean to R when ambulating thathe reports is d/t chronic knee pain. JANSEN noted w/ O2 sats stable on 2L NC. Distance limited by fatigue - User Mehta (r) = Recorded By, (t) = Taken By, (c) = Cosigned By Initials Name Provider Type Nida Mcdaniel PT Physical Therapist Obj/Interventions Row Name 02/01/25 6286 Balance Balance Assessment sitting static balance;sitting dynamic balance;standing static balance;standing dynamic balance - Static Sitting Balance standby assist - Dynamic Sitting Balance standby assist - Position, Sitting Balance unsupported;sitting in chair - Static Standing Balance contact guard;verbal cues - Dynamic Standing Balance minimal assist;verbal cues - Position/Device Used, Standing Balance supported;walker, front-wheeled - Balance Interventions sitting;standing;sit to stand;supported;static;dynamic - Comment, Balance No LOB noted - User Mehta (r) = Recorded By, (t) = Taken By, (c) = Cosigned By Initials Name Provider Type Nida Mcdaniel, PT Physical Therapist Goals/Plan No documentation. Clinical Impression [facility] Name 02/01/25 1458 Pain Pretreatment Pain Rating 0/10 - no pain - Posttreatment Pain Rating 0/10 - no pain -[facility] Name 02/01/25 1458 Plan of Care Review Plan of Care Reviewed With patient;spouse - Progress improving - Outcome Evaluation Pt demonstrating improvements this date by ambulating farther distance w/ Janine x1. However, pt continues to ambulate w/ 2L NC and fatigues quickly w/ mobility. Pt would continue tobenefit from IP PT services while hospitalized to address deficits in strength, balance, and activity tolerance. If medically appropriate, continue to recommend IRF at d/c. -[facility] Name 02/01/25 1458 Vital Signs Pre Systolic BP Rehab 124 - Pre Treatment Diastolic BP 67 - Pretreatment Heart Rate (beats/min) 70 - Posttreatment Heart Rate (beats/min) 71 - Pre SpO2 (%) 96 - O2 Delivery Pre Treatment nasal cannula - Intra SpO2 (%) 92 - O2 Delivery Intra Treatment nasal cannula - Post SpO2 (%) 94 - O2 Delivery Post Treatment nasal cannula - Pre Patient Position Sitting - Intra Patient Position Standing - Post Patient Position Sitting -[facility] 02/01/25 1458 Positioning and Restraints Pre-Treatment Position sitting in chair/recliner - Post Treatment Position chair - In Chair notified nsg;reclined;sitting;call light within reach;encouraged to call for assist;exit alarm on;with family/caregiver;waffle cushion;legs elevated - User Mehta (r) = Recorded By, (t) = Taken By, (c) = Cosigned By Initials Name Provider Type Nida Mcdaniel, BRENDON Physical Therapist Outcome Measures Row Name 02/01/25 1502 02/01/25 1200 How much help from another person do you currently need... Turning from your back to your side while in flat bed without using bedrails? 3 - 4 -ER Moving from lying on back to sitting on the side of a flat bed without bedrails? 3 - 4 -ER Moving to and from a bed to a chair (including a wheelchair)? 3 - 3 -ER Standing up from a chair using your arms (e.g., wheelchair, bedside chair)? 3 - 3 -ER Climbing 3-5 steps with a railing? 2 - 2 -ER To walk in hospital room? 3 - 3 -ER AM-PAC 6 Clicks Score (PT) 17 -LH 19 -ER Highest Level of Mobility Goal Stand (1 or More Minutes)-5 -LH Walk 10 Steps or More-6 -ER Row Name 02/01/25 0800 How much help from another person do you currently need... Turning from your back to your side while in flat bed without using bedrails? 4 -ER Moving from lying on back to sitting on the side of a flat bed without bedrails? 4 -ER Moving to and from a bed to a chair (including a wheelchair)? 3 -ER Standing up from a chair using your arms (e.g., wheelchair, bedside chair)? 3 -ER Climbing 3-5 steps with a railing? 2 -ER To walk in hospital room? 3 -ER AM-PAC 6 Clicks Score (PT) 19 -ER Highest Level of Mobility Goal Walk 10 Steps or More-6 -ER Row Name 02/01/25 1502 Functional Assessment Outcome Measure Options AM-PAC 6 Clicks Basic Mobility (PT) - User Mehta (r) = Recorded By, (t) = Taken By, (c) = Cosigned By Initials Name Provider Type Nida Mcdaniel, BRENDON Physical Therapist Milli Huston RN Registered Nurse Physical Therapy Education Title: PT OT TRAY ROOM WORKER Therapies (In Progress) Topic: Physical Therapy (Done) Point: Mobility training (Done) Learning Progress Summary Patient Acceptance, E, VU,NR by at 02/01/2025 1502 Acceptance, E,D, VU,NR by at 01/29/2025 1350 Significant Other Acceptance, E, VU,NR by at 02/01/2025 1502 Acceptance, E,D, VU,NR by at 01/29/2025 1350 Point: Home exercise program (Done) Learning Progress Summary Patient Acceptance, E, VU,NR by at 02/01/2025 1502 Significant Other Acceptance, E, VU,NR by at 02/01/2025 1502 Point: Body mechanics (Done) Learning Progress Summary Patient Acceptance, E, VU,NR by at 02/01/2025 1502 Acceptance, E,D, VU,NR by at 01/29/2025 1350 Significant Other Acceptance, E, VU,NR by at 02/01/2025 1502 Acceptance, E,D, VU,NR by at 01/29/2025 1350 Point: Precautions (Done) Learning Progress Summary Patient Acceptance, E, VU,NR by at 02/01/2025 1502 Acceptance, E,D, VU,NR by at 01/29/2025 1350 Significant Other Acceptance, E, VU,NR by at 02/01/2025 1502 Acceptance, E,D, VU,NR by at 01/29/2025 1350 User Mehta Initials Effective Dates Name Provider Type Discipline 07/26/22 - Anna Walsh PT Physical Therapist PT 03/13/23 - Nida Mcdaniel PT Physical Therapist PT PT Recommendation and Plan Recommended discharge disposition is based on the functional assessment performed by PT/OT/Speech therapy (as applicable) and may not reflect the medical necessity determined by your provider or services covered by an individual patient's insurance plan or patient resource. Progress: improving Outcome Evaluation: Pt demonstrating improvements this date by ambulating farther distance w/ Janine x1. However, pt continues to ambulate w/ 2L NC and fatigues quickly w/ mobility. Pt would continue to benefit from IP PT services while hospitalized to address deficits in strength, balance, and activity tolerance. If medically appropriate, continue to recommend IRF at d/c. Time Calculation: PT Charges Row Name 02/01/25 1502 Time Calculation Start Time 1425 -LH PT Received On 02/01/25 - PT Goal Re-Cert Due Date 02/08/25 - Timed Charges 60829 - PT Therapeutic Activity Minutes 23 -LH Total Minutes Timed Charges Total Minutes 23 -LH Total Minutes 23 - User Mehta (r) = Recorded By, (t) = Taken By, (c) = Cosigned By Initials Name Provider Type Nida Mcdaniel, PT Physical Therapist Therapy Charges for Today Code Description Service Date Service Provider Modifiers Qty [id number] HC PT THERAPEUTIC ACT EA 15 MIN 02/01/2025 Nida Mcdaniel, PT GP 2 PT G-Codes Outcome Measure Options: AM-PAC 6 Clicks Basic Mobility (PT) AM-PAC 6 Clicks Score (PT): 17 AM-PAC 6 Clicks Score (OT): 16 Modified Jalyn Scale: 3 - Moderate disability. Requiring some help, but able to walk without assistance. PT Discharge Summary Anticipated Discharge Disposition (PT): inpatient rehabilitation facility Nida Mcdaniel, PT 02/01/2025 * Case Management/Social Work - Zandra Villanueva RN - 01/31/2025 2:22 PM EDT Discharge Planning Assessment [facility] Patient Name: Charles Gardner Today's Date: 01/31/2025 Admit Date: 01/26/2025 Plan: Home with HH vs IPR Discharge Plan Row Name 01/31/25 1414 Plan Plan Home with HH vs IPR Patient/Family in Agreement with Plan yes Plan Comments I have spoken to Mr. Gardner and his today regarding PT/OT recommendations for inpatient rehab. He verbalizes understnding but is not agreeable to inpatient rehab. He states that his home is small and he will be able to walk short distances. His Mildred states that she will provide assistance and transportation as needed. They are agreeable to home health services. I have faxed a referral to [facility]. CM will cont to follow plan of care and provide assistance with discharge planning as recommendations become available. Final Discharge Disposition Code 06 - home with home health care Continued Care and Services - Admitted Since 01/26/2025 Home Medical Care Service Provider Request Status Services Address Phone Fax Patient Preferred [facility] Pending - Request Sent -- [address] [place] [address] [phone] -- Zandra Villanueva RN * Therapy Evaluation - Anna Walsh, PT - 01/29/2025 10:29 AM EDT Images from the original note were not included. Patient Name: Charles Gardner : 1955 Today's Date: 01/29/2025 Admit Date: 01/26/2025 Visit Dx: ICD-10-CM ICD-9-CM 1. Altered mental status, unspecified altered mental status type R41.82 780.97 2. Acute encephalopathy G93.40 348.30 3. Acute respiratory failure, unspecified whether with hypoxia or hypercapnia J96.00 518.81 4. Dysphagia, unspecified type R13.10 787.20 Patient Active Problem List Diagnosis Asymptomatic stenosis of right vertebral artery Hyperlipidemia Essential hypertension Type 2 diabetes mellitus Obesity, morbid, BMI 40.0-49.9 Altered mental status Past Medical History: Diagnosis Date Hyperlipidemia 10/16/2017 Hypertension Stroke Type 2 diabetes mellitus 01/26/2025 Past Surgical History: Procedure Laterality Date CARDIAC CATHETERIZATION 2011 HERNIA REPAIR 1985 & 1989 abdominal INTERVENTIONAL RADIOLOGY PROCEDURE Bilateral 06/14/2021 Procedure: Carotid Cerebral Angiogram; Surgeon: Satinder Vazquez MD; Location: [facility]; Service: Interventional Radiology; Laterality: Bilateral; TUMOR REMOVAL Left FATTY TUMOR REMOVED FROM L SHOULDER General Information Row Name 01/29/25 1342 Physical Therapy Time and Intention Document Type evaluation -LS Mode of Treatment physical therapy - Row Name 01/29/25 1342 General Information Patient Profile Reviewed yes -LS Prior Level of Function independent:;all household mobility;ADL's PRN use of quad cane due to knee pain L >R -LS Existing Precautions/Restrictions fall;oxygen therapy device and L/min -LS Barriers to Rehab medically complex;previous functional deficit -LS Row Name 01/29/25 1342 Living Environment Current Living Arrangements home -LS People in Home spouse -LS Row Name 01/29/25 1342 Home Main Entrance Number of Stairs, Main Entrance one -LS Stair Railings, Main Entrance none -LS Row Name 01/29/25 1342 Stairs Within Home, Primary Number of Stairs, Within Home, Primary none -LS Row Name 01/29/25 1342 Cognition Orientation Status (Cognition) oriented x 3 -LS Row Name 01/29/25 1342 Safety Issues/Impairments Affecting Functional Mobility Safety Issues Affecting Function (Mobility) safety precautions follow- through/compliance;safety precaution awareness -LS Impairments Affecting Function (Mobility) balance;coordination;endurance/activity tolerance;shortness of breath;strength;postural/trunk control -LS User Mehta (r) = Recorded By, (t) = Taken By, (c) = Cosigned By Initials Name Provider Type LS Anna Walsh, PT Physical Therapist Mobility Row Name 01/29/25 1344 Bed Mobility Supine-Sit [place] (Bed Mobility) moderate assist (50% patient effort);2 person assist;verbal cues -LS Assistive Device (Bed Mobility) bed rails;head of bed elevated - Row Name 01/29/25 1344 Sit-Stand Transfer Sit-Stand [place] (Transfers) minimum assist (75% patient effort);2 person assist;verbal cues -LS Assistive Device (Sit-Stand Transfers) walker, front-wheeled -LS Row Name 01/29/25 1344 Gait/Stairs (Locomotion) [place] Level (Gait) minimum assist (75% patient effort);2 person assist;verbal cues -LS Assistive Device (Gait) walker, front-wheeled -LS Patient was able to Ambulate yes -LS Distance in Feet (Gait) 108 -LS Deviations/Abnormal Patterns (Gait) bilateral deviations;gait speed decreased;stride length decreased -LS Bilateral Gait Deviations forward flexed posture;heel strike decreased -LS Comment, (Gait/Stairs) 2 brief standing rest breaks due to fatigue and SOA. Cues for upright posture and keeping RW close to body. -LS User Mehta (r) = Recorded By, (t) = Taken By, (c) = Cosigned By Initials Name Provider Type Anna Walsh, PT Physical Therapist Obj/Interventions Row Name 01/29/25 1348 Range of Motion Comprehensive General Range of Motion bilateral lower extremity ROM WFL - Row Name 01/29/25 1348 Strength Comprehensive (MMT) General Manual Muscle Testing (MMT) Assessment lower extremity strength deficits identified -LS Comment, General Manual Muscle Testing (MMT) Assessment BLE grossly 3+/5 - Row Name 01/29/25 1348 Balance Balance Assessment sitting static balance;standing static balance -LS Static Sitting Balance contact guard -LS Position, Sitting Balance sitting edge of bed -LS Static Standing Balance minimal assist -LS Position/Device Used, Standing Balance supported;walker, front-wheeled -LS Row Name 01/29/25 1348 Sensory Assessment (Somatosensory) Sensory Assessment (Somatosensory) LE sensation intact -LS User Mehta (r) = Recorded By, (t) = Taken By, (c) = Cosigned By Initials Name Provider Type LS Anna Walsh, PT Physical Therapist Goals/Plan Row Name 01/29/251348 Bed Mobility Goal 1 (PT) Activity/Assistive Device (Bed Mobility Goal 1, PT) sit to supine/supine to sit -LS [place] Level/Cues Needed (Bed Mobility Goal 1, PT) supervision required -LS Time Frame (Bed Mobility Goal 1, PT) short term goal (STG);5 days -LS Row Name 01/29/251348 Transfer Goal 1 (PT) Activity/Assistive Device (Transfer Goal 1, PT) [id number] -LS [place] Level/Cues Needed (Transfer Goal 1, PT) supervision required -LS Time Frame (Transfer Goal 1, PT) [facility] goal (LTG);10 days -LS Row Name 01/29/251348 Gait Training Goal 1 (PT) Activity/Assistive Device (Gait Training Goal 1, PT) gait (walking locomotion);walker, rolling -LS [place] Level (Gait Training Goal 1, PT) supervision required -LS Distance (Gait Training Goal 1, PT) 200 -LS Time Frame (Gait Training Goal 1, PT) [facility] goal (LTG);10 days -LS Row Name 01/29/25 134 Therapy Assessment/Plan (PT) Planned Therapy Interventions (PT) balance training;bed mobility training;gait training;home exercise program;patient/family education;strengthening;stair training;transfer training -LS User Mehta (r) = Recorded By, (t) = Taken By, (c) = Cosigned By Initials Name Provider Type Anna Kemp, PT Physical Therapist Clinical Impression Row Name 01/29/25 134 Pain Pretreatment Pain Rating 0/10 - no pain -LS Posttreatment Pain Rating 0/10 - no pain -LS Row Name 01/29/25 134 Plan of Care Review Plan of Care Reviewed With patient;spouse -LS Progress no change -LS Outcome Evaluation PT initial evaluation completed. Pt demonstrates generalized weakness and decreased indep re: functional mobility warranting further skilled PT services to promote PLOF. Limited today by fatigue and SOA but able to ambulate 108 ft with RW, min x2 A. Recommend IPR at d/c based upon current functional status. Educated pt/spouse re: PT POC. -LS Row Name 01/29/25 1346 Therapy Assessment/Plan (PT) Patient/Family Therapy Goals Statement (PT) return to PLOF -LS Rehab Potential (PT) good -LS Criteria for Skilled Interventions Met (PT) yes;skilled treatment is necessary -LS Therapy Frequency (PT) daily -LS Predicted Duration of Therapy Intervention (PT) 10 days -LS Row Name 01/29/25 1346 Vital Signs Pre Systolic BP Rehab 158 -LS Pre Treatment Diastolic BP 75 -LS Post Systolic BP Rehab 127 -LS Post Treatment Diastolic BP 66 -LS Pretreatment Heart Rate (beats/min) 93 -LS Posttreatment Heart Rate (beats/min) 92 -LS Pre SpO2 (%) 94 -LS O2 Delivery Pre Treatment nasal cannula -LS O2 Delivery Intra Treatment nasal cannula -LS Post SpO2 (%) 94 -LS O2 Delivery Post Treatment nasal cannula -LS Pre Patient Position Supine -LS Intra Patient Position Standing -LS Post Patient Position Sitting -LS Row Name 01/29/25 1346 Positioning and Restraints Pre-Treatment Position in bed -LS Post Treatment Position chair -LS In Chair notified nsg;reclined;call light within reach;encouraged to call for assist;exit alarm on;on mechanical lift sling;waffle cushion;legs elevated;heels elevated;with family/caregiver -LS User Mehta (r) = Recorded By, (t) = Taken By, (c) = Cosigned By Initials Name Provider Type Anna Kemp, PT Physical Therapist Outcome Measures Row Name 01/29/25 1350 01/29/25 0800 How much help from another person do you currently need... Turning from your back to your side while in flat bed without using bedrails? 3 -LS 3 -AL Moving from lying on back to sitting on the side of a flat bed without bedrails? 2 -LS 2 -AL Moving to and from a bed to a chair (including a wheelchair)? 3 -LS 2 -AL Standing up from a chair using your arms (e.g., wheelchair, bedside chair)? 3 - LS 2 -AL Climbing 3-5 steps with a railing? 1 -LS 1 -AL To walk in hospital room? 3 -LS 2 -AL AM-PAC 6 Clicks Score (PT) 15 -LS 12 -AL Row Name 01/29/25 1350 01/29/25 1317 Modified Jalyn Scale Pre-Stroke Modified Jalyn Scale 6 - Unable to determine (UTD) from the medical record documentation -LS 6 - Unable to determine (UTD) from the medical record documentation -KF Modified Norman Scale 3 - Moderate disability. Requiring some help, but able to walk without assistance. -LS 3 - Moderate disability. Requiring some help, but able to walk without assistance. -KF Row Name 01/29/25 1317 Functional Assessment Outcome Measure Options AM-PAC 6 Clicks Daily Activity (OT);Modified Norman -KF User Mehta (r) = Recorded By, (t) = Taken By, (c) = Cosigned By Initials Name Provider Type LS Anna Walsh, PT Physical Therapist Julia Hernandez, RN Registered Nurse Lissett Bajwa, OT Occupational Therapist Physical Therapy Education Title: PT OT TRAY ROOM WORKER Therapies (In Progress) Topic: Physical Therapy (In Progress) Point: Mobility training (Done) Learning Progress Summary Patient Acceptance, E,D, VU,NR by at 01/29/2025 1350 Significant Other Acceptance, E,D, VU,NR by at 01/29/2025 1350 Point: Home exercise program (Not Started) Learner Progress: Not documented in this visit. Point: Body mechanics (Done) Learning Progress Summary Patient Acceptance, E,D, VU,NR by at 01/29/2025 1350 Significant Other Acceptance, E,D, VU,NR by at 01/29/2025 1350 Point: Precautions (Done) Learning Progress Summary Patient Acceptance, E,D, VU,NR by at 01/29/2025 1350 Significant Other Acceptance, E,D, VU,NR by at 01/29/2025 1350 User Mehta Initials Effective Dates Name Provider Type Discipline 07/26/22 - Anna Walsh, PT Physical Therapist PT PT Recommendation and Plan Planned Therapy Interventions (PT): balance training, bed mobility training, gait training, home exercise program, patient/family education, strengthening, stair training, transfer training Progress: no change Outcome Evaluation: PT initial evaluation completed. Pt demonstrates generalized weakness and decreased indep re: functional mobility warranting further skilled PT services to promote PLOF. Limited today by fatigue and SOA but able to ambulate 108 ft with RW, min x2 A. Recommend IPR at d/c based upon current functional status. Educated pt/spouse re: PT POC. Time Calculation: PT Evaluation Complexity History, PT Evaluation Complexity: 3 or more personal factors and/or comorbidities Examination of Body Systems (PT Eval Complexity): total of 4 or more elements Clinical Presentation (PT Evaluation Complexity): evolving Clinical Decision Making (PT Evaluation Complexity): moderate complexity Overall Complexity (PT Evaluation Complexity): moderate complexity PT Charges Row Name 01/29/25 1351 Time Calculation Start Time 1029 -LS PT Received On 01/29/25 -LS PT Goal Re-Cert Due Date 02/08/25 -LS Timed Charges 57817 - PT Therapeutic Activity Minutes 10 -LS Untimed Charges PT Eval/Re-eval Minutes 36 -LS Total Minutes Timed Charges Total Minutes 10 -LS Untimed Charges Total Minutes 36 -LS Total Minutes 46 -LS User Mehta (r) = Recorded By, (t) = Taken By, (c) = Cosigned By Initials Name Provider Type LS Anna Walsh, PT Physical Therapist Therapy Charges for Today Code Description Service Date Service Provider Modifiers Qty [id number] HC PT EVAL MOD COMPLEXITY 3 01/29/2025 Anna Walsh, PT GP 1 78096248193 HC PT THERAPEUTIC ACT EA 15 MIN 01/29/2025 Anna Walsh, PT GP 1 PT G-Codes Outcome Measure Options: AM-PAC 6 Clicks Daily Activity (OT), Modified Norman AM-PAC 6 Clicks Score (PT): 15 AM-PAC 6 Clicks Score (OT): 16 Modified Norman Scale: 3 - Moderate disability. Requiring some help, but able to walk without assistance. PT Discharge Summary Anticipated Discharge Disposition (PT): inpatient rehabilitation facility Anna Walsh PT 01/29/2025 * Therapy Evaluation - Lissett Feliz, OT - 01/29/2025 10:25 AM EDT Images from the original note were not included. Patient Name: Charles Gardner : 1955 Today's Date: 01/29/2025 Admit Date: 01/26/2025 Visit Dx: ICD-10-CM ICD-9-CM 1. Altered mental status, unspecified altered mental status type R41.82 780.97 2. Acute encephalopathy G93.40 348.30 3. Acute respiratory failure, unspecified whether with hypoxia or hypercapnia J96.00 518.81 4. Dysphagia, unspecified type R13.10 787.20 Patient Active Problem List Diagnosis Asymptomatic stenosis of right vertebral artery Hyperlipidemia Essential hypertension Type 2 diabetes mellitus Obesity, morbid, BMI 40.0-49.9 Altered mental status Past Medical History: Diagnosis Date Hyperlipidemia 10/16/2017 Hypertension Stroke Type 2 diabetes mellitus 01/26/2025 Past Surgical History: Procedure Laterality Date CARDIAC CATHETERIZATION 2011 HERNIA REPAIR 1985 & 1989 abdominal INTERVENTIONAL RADIOLOGY PROCEDURE Bilateral 06/14/2021 Procedure: Carotid Cerebral Angiogram; Surgeon: Satinder Vazquez MD; Location: [facility]; Service: Interventional Radiology; Laterality: Bilateral; TUMOR REMOVAL Left FATTY TUMOR REMOVED FROM L SHOULDER General Information Row Name 01/29/25 1311 OT Time and Intention Document Type evaluation -KF Mode of Treatment occupational therapy;co-treatment -KF Row Name 01/29/25 1311 General Information Patient Profile Reviewed yes -KF Prior Level of Function independent:;all household mobility;community mobility;bed mobility;ADL's;driving Independent prior, PRN use of quad cane due to B knee pain (L>R) -KF Existing Precautions/Restrictions fall;oxygen therapy device and L/min -KF Barriers to Rehab medically complex;previous functional deficit -KF Row Name 01/29/25 1311 Occupational Profile Environmental Supports and Barriers (Occupational Profile) tub shower - Row Name 01/29/25 1311 Living Environment Current Living Arrangements home -KF People in Home spouse -KF Row Name 01/29/25 1311 Home Main Entrance Number of Stairs, Main Entrance one -KF Stair Railings, Main Entrance none -KF Row Name 01/29/25 1311 Stairs Within Home, Primary Number of Stairs, Within Home, Primary none -KF Row Name 01/29/25 1311 Cognition Orientation Status (Cognition) oriented x 3 -KF Row Name 01/29/25 1311 Safety Issues/Impairments Affecting Functional Mobility Safety Issues Affecting Function (Mobility) awareness of need for assistance;insight into deficits/self-awareness;positioning of assistive device;safety precaution awareness;safety precautions follow- through/compliance;sequencing abilities -KF Impairments Affecting Function (Mobility) balance;coordination;endurance/activity tolerance;shortness of breath;strength;postural/trunk control -KF User Mehta (r) = Recorded By, (t) = Taken By, (c) = Cosigned By Initials Name Provider Type Lissett Bajwa OT Occupational Therapist Mobility/ADL's Row Name 01/29/251311 Bed Mobility Bed Mobility supine-sit -KF Supine-Sit [place] (Bed Mobility) moderate assist (50% patient effort);2 person assist;verbal cues -KF Assistive Device (Bed Mobility) bed rails;head of bed elevated -KF Comment, (Bed Mobility) Increased time and effort needed. Cues for sequence with assistance given at trunk. - Row Name 01/29/251311 Transfers Transfers sit-stand transfer;stand-sit transfer - Row Name 01/29/251311 Sit-Stand Transfer Sit-Stand [place] (Transfers) minimum assist (75% patient effort);verbal cues - Assistive Device (Sit-Stand Transfers) walker, front-wheeled -KF Comment, (Sit-Stand Transfer) x2 from EOB - Row Name 01/29/251311 Stand-Sit Transfer Stand-Sit [place] (Transfers) minimum assist (75% patient effort) - Assistive Device (Stand-Sit Transfers) walker, front-wheeled - Row Name 01/29/251311 Functional Mobility Functional Mobility- Ind. Level minimum assist (75% patient effort) - Functional Mobility- Device walker, front-wheeled -KF Functional Mobility-Distance (Feet) -- <household distance - Functional Mobility- Comment x2 extended standing rest breaks taken during mobility due to pt complaints of SOA. SpO2 monitored and remained 90-95% on 3L NC. Frequent cues given to keep RWx close to base of support. - Patient was able to Ambulate yes - Row Name 01/29/251311 Activities of Daily Living BADL Assessment/Intervention lower body dressing - Row Name 01/29/251311 Lower Body Dressing Assessment/Training [place] Level (Lower Body Dressing) don;socks;dependent (less than 25% patient effort) - Position (Lower Body Dressing) supine - User Mehta (r) = Recorded By, (t) = Taken By, (c) = Cosigned By Initials Name Provider Type Lissett Bajwa OT Occupational Therapist Obj/Interventions [facility] Name 01/29/25 1314 Sensory Assessment (Somatosensory) Sensory Assessment (Somatosensory) UE sensation intact -[facility] Name 01/29/25 1314 Vision Assessment/Intervention Visual Impairment/Limitations WFL -[facility] Name 01/29/25 1314 Range of Motion Comprehensive General Range of Motion bilateral upper extremity ROM WFL -[facility] 01/29/25 1314 Strength Comprehensive (MMT) General Manual Muscle Testing (MMT) Assessment upper extremity strength deficits identified -KF Comment, General Manual Muscle Testing (MMT) Assessment BUE grossly 4/5 -KF [facility] Name 01/29/25 1314 Motor Skills Motor Skills functional endurance -KF Functional Endurance fair, below reported baseline -[facility] 01/29/25 131 Balance Balance Assessment sitting static balance;sitting dynamic balance;sit to stand dynamic balance;standing static balance;standing dynamic balance -KF Static Sitting Balance standby assist -KF Dynamic Sitting Balance contact guard -KF Position, Sitting Balance unsupported;sitting edge of bed -KF Sit to Stand Dynamic Balance minimal assist;1-person assist -KF Static Standing Balance minimal assist;1-person assist -KF Dynamic Standing Balance minimal assist;1-person assist -KF Position/Device Used, Standing Balance supported;walker, front-wheeled -KF Balance Interventions sitting;standing;sit to stand;supported;static;dynamic;occupation based/functional task -KF Comment, Balance No overt LOB or knee buckling -KF User Mehta (r) = Recorded By, (t) = Taken By, (c) = Cosigned By Initials Name Provider Type KF Lissett Feliz OT Occupational Therapist Goals/Plan [facility] 01/29/251316 Transfer Goal 1 (OT) Activity/Assistive Device (Transfer Goal 1, OT) [id number]-atplq/bvatb-[id number];commode -KF [place] Level/Cues Needed (Transfer Goal 1, OT) supervision required -KF Time Frame (Transfer Goal 1, OT) [facility] goal (LTG);10 days -KF Progress/Outcome (Transfer Goal 1, OT) new goal -KF [facility] 01/29/25 131 Dressing Goal 1 (OT) Activity/Device (Dressing Goal 1, OT) upper body dressing;lower body dressing -KF [place]/Cues Needed (Dressing Goal 1, OT) standby assist -KF Time Frame (Dressing Goal 1, OT) short term goal (STG);5 days -KF Strategies/Barriers (Dressing Goal 1, OT) ADL AE PRN -KF Progress/Outcome (Dressing Goal 1, OT) new goal -KF Row Name 01/29/251316 Grooming Goal 1 (OT) Activity/Device (Grooming Goal 1, OT) hair care;oral care;wash face, hands -KF [place] (Grooming Goal 1, OT) supervision required -KF Time Frame (Grooming Goal 1, OT) extermination inspector goal (LTG);10 days -KF Strategies/Barriers (Grooming Goal 1, OT) standing sinkside -KF Progress/Outcome (Grooming Goal 1, OT) new goal -KF Row Name 01/29/251316 Therapy Assessment/Plan (OT) Planned Therapy Interventions (OT) activity tolerance training;adaptive equipment training;BADL retraining;functional balance retraining;occupation/activity based interventions;patient/caregiver educa tion/training;ROM/therapeutic exercise;strengthening exercise;transfer/mobility retraining -KF User Mehta (r) = Recorded By, (t) = Taken By, (c) = Cosigned By Initials Name Provider Type KF Lissett Feliz, OT Occupational Therapist Clinical Impression Row Name 01/29/251314 Pain Assessment Pretreatment Pain Rating 0/10 - no pain -KF Posttreatment Pain Rating 0/10 - no pain -KF Row Name 01/29/251314 Plan of Care Review Plan of Care Reviewed With patient;spouse -KF Outcome Evaluation OT evaluation completed. The pt presents below baseline with decreased activity tolerance, balance deficits, and generalized weakness warranting continued IP OT services. The pt was assisted in bed mobility with modA x2. The pt ambulated <household distance within the hallway using a RWx with Janine. x2 extended standing rest breaks taken for SOA, although SpO2 remained >90% on 3L NC. Recommend a d/c to IRF for best outcome, but will monitor pt progress closely. -KF Row Name 01/29/251314 Therapy Assessment/Plan (OT) Patient/Family Therapy Goal Statement (OT) Restore PLOF -KF Rehab Potential (OT) good -KF Criteria for Skilled Therapeutic Interventions Met (OT) yes;skilled treatment is necessary -KF Therapy Frequency (OT) daily -KF Predicted Duration of Therapy Intervention (OT) 10 days -KF Row Name 01/29/251314 Therapy Plan Review/Discharge Plan (OT) Anticipated Discharge Disposition (OT) inpatient rehabilitation facility -KF Row Name 01/29/25 1315 Vital Signs Pre Systolic BP Rehab 158 -KF Pre Treatment Diastolic BP 75 -KF Post Systolic BP Rehab 127 -KF Post Treatment Diastolic BP 66 -KF Pretreatment Heart Rate (beats/min) 93 -KF Posttreatment Heart Rate (beats/min) 93 -KF Pre SpO2 (%) 93 3L -KF O2 Delivery Pre Treatment nasal cannula -KF Post SpO2 (%) 95 -KF O2 Delivery Post Treatment nasal cannula -KF Pre Patient Position Supine -KF Intra Patient Position Standing -KF Post Patient Position Sitting -KF Row Name 01/29/25 1315 Positioning and Restraints Pre-Treatment Position in bed -KF Post Treatment Position chair -KF In Chair notified nsg;reclined;call light within reach;encouraged to call for assist;exit alarm on;with family/caregiver;waffle cushion;on mechanical lift sling;legs elevated -KF User Mehta (r) = Recorded By, (t) = Taken By, (c) = Cosigned By Initials Name Provider Type KF Lissett Feliz, OT Occupational Therapist Outcome Measures Row Name 01/29/25 1317 How much help from another is currently needed... Putting on and taking off regular lower body clothing? 2 -KF Bathing (including washing, rinsing, and drying) 2 -KF Toileting (which includes using toilet bed mcguire or urinal) 2 -KF Putting on and taking off regular upper body clothing 3 -KF Taking care of personal grooming (such as brushing teeth) 3 -KF Eating meals 4 -KF AM-PAC 6 Clicks Score (OT) 16 -KF Row Name 01/29/25 0800 How much help from another person do you currently need... Turning from your back to your side while in flat bed without using bedrails? 3 -AL Moving from lying on back to sitting on the side of a flat bed without bedrails? 2 -AL Moving to and from a bed to a chair (including a wheelchair)? 2 -AL Standing up from a chair using your arms (e.g., wheelchair, bedside chair)? 2 -AL Climbing 3-5 steps with a railing? 1 -AL To walk in hospital room? 2 -AL AM-PAC 6 Clicks Score (PT) 12 -AL Row Name 01/29/25 1317 Modified Norman Scale Pre-Stroke Modified Norman Scale 6 - Unable to determine (UTD) from the medical record documentation - Modified Norman Scale 3 - Moderate disability. Requiring some help, but able to walk without assistance. 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 Therapies (In Progress) Topic: Occupational Therapy (In Progress) Point: ADL training (Done) Learning Progress Summary Patient Acceptance, E,TB, VU,DU by at 01/29/2025 1025 Point: Precautions (Done) Learning Progress Summary Patient Acceptance, E,TB, VU,DU by at 01/29/2025 1025 Point: Body mechanics (Done) Learning Progress Summary Patient Acceptance, E,TB, VU,DU by at 01/29/2025 1025 User Mehta Initials Effective Dates Name Provider Type Discipline 01/29/23 - Lissett Feliz OT Occupational Therapist OT OT Recommendation and Plan Planned Therapy Interventions (OT): activity tolerance training, adaptive equipment training, BADL retraining, functional balance retraining, occupation/activity based interventions, patient/caregiver education/training, ROM/therapeutic exercise, strengthening exercise, transfer/mobility retraining Therapy Frequency (OT): daily Plan of Care Review Plan of Care Reviewed With: patient, spouse Outcome Evaluation: OT evaluation completed. The pt presents below baseline with decreased activitytolerance, balance deficits, and generalized weakness warranting continued IP OT services. The pt was assisted in bed mobility with modA x2. The pt ambulated <household distance within the hallwayusing a RWx with Janine. x2 extended standing rest breaks taken for SOA, although SpO2 remained >90% on 3L NC. Recommend a d/c to IRF for best outcome, but will monitor pt progress closely. Time Calculation: Evaluation Complexity (OT) Review Occupational Profile/Medical/Therapy History Complexity: expanded/moderate complexity Assessment, Occupational Performance/Identification of Deficit Complexity: 3-5 performance deficits Clinical Decision Making Complexity (OT): detailed assessment/moderate complexity Overall Complexity of Evaluation (OT): moderate complexity Time Calculation- OT Row Name 01/29/25 1318 Time Calculation- OT OT Start Time 1025 -KF OT Received On 01/29/25 -KF OT Goal Re-Cert Due Date 02/08/25 -KF Untimed Charges OT Eval/Re-eval Minutes 47 -KF Total Minutes Untimed Charges Total Minutes 47 -KF Total Minutes 47 -KF User Mehta (r) = Recorded By, (t) = Taken By, (c) = Cosigned By Initials Name Provider Type Lissett Bajwa OT Occupational Therapist Therapy Charges for Today Code Description Service Date Service Provider Modifiers Qty [id number] HC OT EVAL MOD COMPLEXITY 4 01/29/2025 Lissett Feliz OT GO 1 Lissett Feliz OT 01/29/2025 * Therapy Re-Evaluation - Tania Myers MS CCC-TRAY ROOM WORKER - 01/29/2025 10:10 AM EDT Images from the original note were not included. Acute Care - Speech Language Pathology Swallow Re-Evaluation [facility] Clinical Swallow Re-Evaluation Patient Name: Charles Gardner : 1955 Today's Date: 01/29/2025 Admit Date: 01/26/2025 Visit Dx: ICD-10-CM ICD-9-CM 1. Altered mental status, unspecified altered mental status type R41.82 780.97 2. Acute encephalopathy G93.40 348.30 3. Acute respiratory failure, unspecified whether with hypoxia or hypercapnia J96.00 518.81 4. Dysphagia, unspecified type R13.10 787.20 Patient Active Problem List Diagnosis Asymptomatic stenosis of right vertebral artery Hyperlipidemia Essential hypertension Type 2 diabetes mellitus Obesity, morbid, BMI 40.0-49.9 Altered mental status Past Medical History: Diagnosis Date Hyperlipidemia 10/16/2017 Hypertension Stroke Type 2 diabetes mellitus 01/26/2025 Past Surgical History: Procedure Laterality Date CARDIAC CATHETERIZATION 2012 HERNIA REPAIR 1985 & 1989 abdominal INTERVENTIONAL RADIOLOGY PROCEDURE Bilateral 06/14/2021 Procedure: Carotid Cerebral Angiogram; Surgeon: Satinder Vazquez MD; Location: [facility]; Service: Interventional Radiology; Laterality: Bilateral; TUMOR REMOVAL Left FATTY TUMOR REMOVED FROM L SHOULDER TRAY ROOM WORKER Recommendation and Plan TRAY ROOM WORKER Swallowing Diagnosis: mild, oral dysphagia (01/29/25 101) TRAY ROOM WORKER Diet Recommendation: soft to chew textures, chopped, thin liquids (01/29/251009) Recommended Precautions and Strategies: upright posture during/after eating, small bites of food and sips of liquid, general aspiration precautions (01/29/251009) TRAY ROOM WORKER Rec. for Method of Medication Administration: meds whole, meds crushed, with thin liquids, withpuree, as tolerated (01/29/25 101) Monitor for Signs of Aspiration: yes, notify TRAY ROOM WORKER if any concerns (01/29/251009) Swallow Criteria for Skilled Therapeutic Interventions Met: demonstrates skilled criteria () Anticipated Discharge Disposition (TRAY ROOM WORKER): inpatient rehabilitation facility (01/29/251009) Rehab Potential/Prognosis, Swallowing: good, to achieve stated therapy goals (01/29/251009) Therapy Frequency (Swallow): 5 days per week (01/29/251009) Predicted Duration Therapy Intervention (Days): 1 week (01/29/251009) Oral Care Recommendations: Oral Care BID/PRN, Suction toothbrush (01/29/251009) Progress: improving SWALLOW EVALUATION (Last 72 Hours) TRAY ROOM WORKER Adult Swallow Evaluation Row Name 01/29/25 10101/28/25 1415 Rehab Evaluation Document Type re-evaluation -MM evaluation -RS Subjective Information no complaints -MM no complaints -RS Patient Observations alert;cooperative -MM alert;cooperative;agree to therapy -RS Patient/Family/Caregiver Comments/Observations spouse present -MM and niece present -RS Patient Effort good -MM good -RS Symptoms Noted During/After Treatment none -MM none -RS Oral Care -- teeth brushed - suction toothbrush -RS General Information Patient Profile Reviewed yes -MM yes -RS Pertinent History Of Current Problem See initial eval. -MM Pt is a 69 yoM who had a sudden altered mentation while at PCP's office with nausea and diaphoresis. He was brought to [facility] ED and intubated upon arrival. PMHx significant for HTN, DM2, and dyslipidemia. There is ? Hx CVA. MD notes indicate RUL pna/atelectasis. Pt was extubated ~noon today. -RS Current Method of Nutrition NPO -MM NPO -RS Precautions/Limitations, Vision WFL;for purposes of eval -MM WFL;for purposes of eval -RS Precautions/Limitations, Hearing WFL;for purposes of eval -MM WFL;for purposes of eval -RS Prior Level of Function-Communication WFL;other (see comments) per family -MM WFL;other (see comments) per family -RS Prior Level of Function-Swallowing no diet consistency restrictions;other (see comments) pt reportsavoided meats and raw vegetables d/t difficulty chewing -MM no diet consistency restrictions -RS Plans/Goals Discussed with patient and family;agreed upon -MM patient and family;agreed upon -RS Barriers to Rehab none identified -MM none identified -RS Pain Pretreatment Pain Rating 0/10 - no pain -MM 0/10 - no pain -RS Posttreatment Pain Rating 0/10 - no pain -MM 0/10 - no pain -RS Oral Motor Structure and Function Dentition Assessment edentulous -MM edentulous -RS Secretion Management WNL/WFL -MM WNL/WFL -RS Mucosal Quality moist, healthy -MM dry -RS Volitional Swallow -- delayed -RS Volitional Cough -- reduced respiratory support -RS Oral Musculature and Cranial Nerve Assessment Oral Motor General Assessment generalized oral motor weakness -MM generalized oral motor weakness -RS General Eating/Swallowing Observations Respiratory Support Currently in Use nasal cannula -MM nasal cannula -RS Eating/Swallowing Skills fed by TRAY ROOM WORKER -MM fed by TRAY ROOM WORKER;unable to perform self- feeding -RS Positioning During Eating upright in bed -MM upright in bed;other (see comments) upright in bariatric bed -RS Utensils Used spoon;straw -MM spoon;straw -RS Consistencies Trialed pureed;ice chips;thin liquids;regular textures -MM pureed;ice chips;thin liquids -RS Respiratory Date of Intubation -- 01/26-01/28 -RS Clinical Swallow Eval Oral Prep Phase impaired -MM WFL -RS Oral Transit WFL -MM WFL -RS Oral Residue WFL -MM WFL -RS Pharyngeal Phase no overt signs/symptoms of pharyngeal impairment -MM suspected pharyngeal impairment -RS Esophageal Phase -- unremarkable -RS Oral Prep Concerns Oral Prep Concerns prolonged mastication -MM -- Prolonged Mastication regular consistencies -MM -- Pharyngeal Phase Concerns Pharyngeal Phase Concerns -- multiple swallows;cough -RS Multiple Swallows -- thin -RS Cough -- thin -RS Swallowing Quality of Life Assessment Education and counseling provided -- Signs of aspiration;Silent aspiration;Risks of aspiration;Alternate nutrition/hydration options, risks, and benefits;Oral care recommendations and rationale;Aspiration precautions -RS TRAY ROOM WORKER Evaluation Clinical Impression TRAY ROOM WORKER Swallowing Diagnosis mild;oral dysphagia -MM R/O pharyngeal dysphagia -RS Functional Impact risk of aspiration/pneumonia -MM risk of aspiration/pneumonia -RS Rehab Potential/Prognosis, Swallowing good, to achieve stated therapy goals -MM -- Swallow Criteria for Skilled Therapeutic Interventions Met demonstrates skilled criteria -MM -- Recommendations Therapy Frequency (Swallow) 5 days per week -MM -- Predicted Duration Therapy Intervention (Days) 1 week -MM -- TRAY ROOM WORKER Diet Recommendation soft to chew textures;chopped;thin liquids -MM NPO;other (see comments) 3-4ice chips/hr after oral care -RS Recommended Diagnostics -- reassess via clinical swallow evaluation -RS Recommended Precautions and Strategies upright posture during/after eating;small bites of food and sips of liquid;general aspiration precautions -MM general aspiration precautions -RS Oral Care Recommendations Oral Care BID/PRN;Suction toothbrush -MM Oral Care BID/PRN;Suction toothbrush -RS TRAY ROOM WORKER Rec. for Method of Medication Administration meds whole;meds crushed;with thin liquids;with puree;as tolerated -MM meds crushed;with puree essential PO meds only -RS Monitor for Signs of Aspiration yes;notify TRAY ROOM WORKER if any concerns -MM yes;notify TRAY ROOM WORKER if any concerns -RS Anticipated Discharge Disposition (TRAY ROOM WORKER) inpatient rehabilitation facility -MM inpatient rehabilitation facility -RS User Mehta (r) = Recorded By, (t) = Taken By, (c) = Cosigned By Initials Name Effective Dates RS Ronal Noriega MS [facility]TRAY [facility]OM WORKER 03/06/23 - MM Tania Myers MS [facility]TR[facility] WORKER 02/20/24 - EDUCATION The patient has been educated in the following areas: Dysphagia (Swallowing Impairment). TRAY ROOM WORKER GOALS Row Name 01/29/25 1010 (LTG) Patient will demonstrate functional swallow for Diet Texture (Demonstrate functional swallow) regular textures -MM Liquid viscosity (Demonstrate functional swallow) thin liquids -MM [place] (Demonstrate functional swallow) independently (over 90% accuracy) -MM Time Frame (Demonstrate functional swallow) 1 week -MM Progress/Outcomes (Demonstrate functional swallow) new goal -MM (STG) Patient will tolerate trials of Consistencies Trialed (Tolerate trials) soft to chew (chopped) textures;thin liquids -MM Desired Outcome (Tolerate trials) without signs/symptoms of aspiration;with adequate oral prep/transit/clearance -MM [place] (Tolerate trials) independently (over 90% accuracy) -MM Time Frame (Tolerate trials) 1 week -MM Progress/Outcomes (Tolerate trials) new goal -MM (STG) Patient will tolerate therapeutic trials of Consistencies Trialed (Tolerate therapeutic trials) regular textures -MM Desired Outcome (Tolerate therapeutic trials) without signs/symptoms of aspiration;with adequate oral prep/transit/clearance -MM [place] (Tolerate therapeutic trials) with minimal cues (75-90% accuracy) -MM Time Frame (Tolerate therapeutic trials) 1 week -MM Progress/Outcomes (Tolerate therapeutic trials) new goal -MM User Mehta (r) = Recorded By, (t) = Taken By, (c) = Cosigned By Initials Name Provider Type Tania Fung MS CCC-TRAY ROOM WORKER Speech and Language Pathologist Time Calculation: Time Calculation- TRAY ROOM WORKER Row Name 01/29/25 1220 Time Calculation- TRAY ROOM WORKER TRAY ROOM WORKER Start Time 1010 -MM TRAY ROOM WORKER Received On 01/29/25 -MM Untimed Charges 73456-XY Eval Oral Pharyng Swallow Minutes 41 -MM Total Minutes Untimed Charges Total Minutes 41 -MM Total Minutes 41 -MM User Mehta (r) = Recorded By, (t) = Taken By, (c) = Cosigned By Initials Name Provider Type Tania Fung MS CCC-TRAY ROOM WORKER Speech and Language Pathologist Therapy Charges for Today Code Description Service Date Service Provider Modifiers Qty [id number] ST EVAL ORAL PHARYNG SWALLOW 3 01/29/2025 Tania Myers MS CCC-TRAY ROOM WORKER GN 1 Tania Myers MS CCC-DAYANARA 01/29/2025 * Therapy Evaluation - Ronal Noriega MS CCC-TRAY ROOM WORKER - 01/28/2025 3:16 PM EDT Images from the original note were not included. Acute Care - Speech Language Pathology Swallow Initial Evaluation [facility] Clinical Swallow Evaluation Patient Name: Charles Gardner : 1955 Today's Date: 01/28/2025 Admit Date: 01/26/2025 Visit Dx: ICD-10-CM ICD-9-CM 1. Altered mental status, unspecified altered mental status type R41.82 780.97 2. Acute encephalopathy G93.40 348.30 3. Acute respiratory failure, unspecified whether with hypoxia or hypercapnia J96.00 518.81 4. Dysphagia, unspecified type R13.10 787.20 Patient Active Problem List Diagnosis Asymptomatic stenosis of right vertebral artery Hyperlipidemia Essential hypertension Type 2 diabetes mellitus Obesity, morbid, BMI 40.0-49.9 Altered mental status Past Medical History: Diagnosis Date Hyperlipidemia 10/16/2017 Hypertension Stroke Type 2 diabetes mellitus 01/26/2025 Past Surgical History: Procedure Laterality Date CARDIAC CATHETERIZATION 2011 HERNIA REPAIR 1985 & 1989 abdominal INTERVENTIONAL RADIOLOGY PROCEDURE Bilateral 06/14/2021 Procedure: Carotid Cerebral Angiogram; Surgeon: Satinder Vazquez MD; Location: [facility]; Service: Interventional Radiology; Laterality: Bilateral; TUMOR REMOVAL Left FATTY TUMOR REMOVED FROM L SHOULDER TRAY ROOM WORKER Recommendation and Plan TRAY ROOM WORKER Swallowing Diagnosis: R/O pharyngeal dysphagia (01/28/251414) TRAY ROOM WORKER Diet Recommendation: NPO, other (see comments) (3-4 ice chips/hr after oral care) (01/28/251414) Recommended Precautions and Strategies: general aspiration precautions (01/28/251414) TRAY ROOM WORKER Rec. for Method of Medication Administration: meds crushed, with puree (essential PO meds only)(01/28/251414) Monitor for Signs of Aspiration: yes, notify TRAY ROOM WORKER if any concerns (01/28/251414) Recommended Diagnostics: reassess via clinical swallow evaluation (01/28/251414) Anticipated Discharge Disposition (TRAY ROOM WORKER): inpatient rehabilitation facility (01/28/251414) Oral Care Recommendations: Oral Care BID/PRN, Suction toothbrush (01/28/251414) Progress: improving SWALLOW EVALUATION (Last 72 Hours) TRAY ROOM WORKER Adult Swallow Evaluation Row Name 01/28/251414 Rehab Evaluation Document Type evaluation -RS Subjective Information no complaints -RS Patient Observations alert;cooperative;agree to therapy -RS Patient/Family/Caregiver Comments/Observations and niece present -RS Patient Effort good -RS Symptoms Noted During/After Treatment none -RS Oral Care teeth brushed - suction toothbrush -RS General Information Patient Profile Reviewed yes -RS Pertinent History Of Current Problem Pt is a 69 yoM who had a sudden altered mentation while at PCP's office with nausea and diaphoresis. He was brought to [facility] ED and intubated upon arrival. PMHx significant for HTN, DM2, and dyslipidemia. There is ? Hx CVA. MD notes indicate RUL pna/atelectasis. Pt was extubated ~noon today. -RS Current Method of Nutrition NPO -RS Precautions/Limitations, Vision WFL;for purposes of eval -RS Precautions/Limitations, Hearing WFL;for purposes of eval -RS Prior Level of Function-Communication WFL;other (see comments) per family -RS Prior Level of Function-Swallowing no diet consistency restrictions -RS Plans/Goals Discussed with patient and family;agreed upon -RS Barriers to Rehab none identified -RS Pain Pretreatment Pain Rating 0/10 - no pain -RS Posttreatment Pain Rating 0/10 - no pain -RS Oral Motor Structure and Function Dentition Assessment edentulous -RS Secretion Management WNL/WFL -RS Mucosal Quality dry -RS Volitional Swallow delayed -RS Volitional Cough reduced respiratory support -RS Oral Musculature and Cranial Nerve Assessment Oral Motor General Assessment generalized oral motor weakness -RS General Eating/Swallowing Observations Respiratory Support Currently in Use nasal cannula -RS Eating/Swallowing Skills fed by TRAY ROOM WORKER;unable to perform self-feeding -RS Positioning During Eating upright in bed;other (see comments) upright in bariatric bed -RS Utensils Used spoon;straw -RS Consistencies Trialed pureed;ice chips;thin liquids -RS Respiratory Date of Intubation 01/26-01/28 -RS Clinical Swallow Eval Oral Prep Phase WFL -RS Oral Transit WFL -RS Oral Residue WFL -RS Pharyngeal Phase suspected pharyngeal impairment -RS Esophageal Phase unremarkable -RS Pharyngeal Phase Concerns Pharyngeal Phase Concerns multiple swallows;cough -RS Multiple Swallows thin -RS Cough thin -RS Swallowing Quality of Life Assessment Education and counseling provided Signs of aspiration;Silent aspiration;Risks of aspiration;Alternate nutrition/hydration options, risks, and benefits;Oral care recommendations and rationale;Aspiration precautions -RS TRAY ROOM WORKER Evaluation Clinical Impression TRAY ROOM WORKER Swallowing Diagnosis R/O pharyngeal dysphagia -RS Functional Impact risk of aspiration/pneumonia -RS Recommendations TRAY ROOM WORKER Diet Recommendation NPO;other (see comments) 3-4 ice chips/hr after oral care -RS Recommended Diagnostics reassess via clinical swallow evaluation -RS Recommended Precautions and Strategies general aspiration precautions -RS Oral Care Recommendations Oral Care BID/PRN;Suction toothbrush -RS TRAY ROOM WORKER Rec. for Method of Medication Administration meds crushed;with puree essential PO meds only -RS Monitor for Signs of Aspiration yes;notify TRAY ROOM WORKER if any concerns -RS Anticipated Discharge Disposition (TRAY ROOM WORKER) inpatient rehabilitation facility -RS User Mehta (r) = Recorded By, (t) = Taken By, (c) = Cosigned By Initials Name Effective Dates RS Ronal Noriega MS CCC-TRAY ROOM WORKER 03/06/23 - EDUCATION The patient has been educated in the following areas: Dysphagia (Swallowing Impairment) NPO rationale. Time Calculation: Time Calculation- TRAY ROOM WORKER Row Name 01/28/25 1515 Time Calculation- TRAY ROOM WORKER TRAY ROOM WORKER Start Time 1415 -RS TRAY ROOM WORKER Received On 01/28/25 -RS Untimed Charges 99455-[id number] Eval Oral Pharyng Swallow Minutes 60 -RS Total Minutes Untimed Charges Total Minutes 60 -RS Total Minutes 60 -RS User Mehta (r) = Recorded By, (t) = Taken By, (c) = Cosigned By Initials Name Provider Type RS Ronal Noriega MS CCC-TRAY ROOM WORKER Speech and Language Pathologist Therapy Charges for Today Code Description Service Date Service Provider Modifiers Qty [id number] HC ST EVAL ORAL PHARYNG SWALLOW 4 01/28/2025 Ronal Noriega MS CCC-TRAY ROOM WORKER GN 1 MS INES [place] 01/28/2025 * Case Management/Social Work - Zandra Villanueva RN - 01/27/2025 4:56 PM EDT Images from the original note were not included. Discharge Planning Assessment Bob Patient Name: Charles Gardner Today's Date: 01/27/2025 Admit Date: 01/26/2025 Plan: TBD Discharge Needs Assessment Row Name 01/27/25 1608 Living Environment People in Home spouse Name(s) of People in Home Mildred Gardner - spouse Current Living Arrangements home Primary Care Provided by self Provides Primary Care For no one Family Caregiver if Needed spouse Family Caregiver Names Mildred Gardner- spouse Quality of Family Relationships helpful;involved;supportive Able to Return to Prior Arrangements other (see comments) TBD Transition Planning Patient/Family Anticipates Transition to home with family Transportation Anticipated family or friend will provide Discharge Needs Assessment Readmission Within the Last 30 Days no previous admission in last 30 days Equipment Currently Used at Home cpap Concerns to be Addressed discharge planning Current Discharge Risk chronically ill;physical impairment Discharge Plan Row Name 01/27/25 1648 Plan Plan TBD Patient/Family in Agreement with Plan yes Plan Comments Mr. Gardner is currently requiring ventilatory support. He is sedated. I have met [facility] his Mildred at the bedside to initiate a discharge plan. She states that they share a home in [facility]. She reports that prior to this hospital admission he has been independent with activities of daily living and mobility. He does use a CPAP at night. She denies current receipt of home health/Op services and use of home oxygen. I have confirmed that his PCP is Ernesto Watkins and his insurance is [employer] Medicare. CM will cont to follow the evolving plan of care and provide assistancewith discharge planning as recommendations become available. Final Discharge Disposition Code 02 - short term hospital for [facility] Continued Care and Services - Admitted Since 01/26/2025 No active coordination exists. 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 Status Row Name 01/27/25 1607 Functional Status, IADL Medications independent Meal Preparation independent Housekeeping independent Laundry independent Shopping independent Employment/ Employment Status retired Zandra Villanueva RN documented in this encounter Plan of Treatment Scheduled Referrals Name Type Priority Associated Diagnoses Orde r Schedule Ambulatory Referral to Home Health Outpatient Referral Routine Altered mental status, unspecified altered mental status type Acute encephalopathy Acute respiratory failure, unspecified whether with hypoxia or hypercapnia Dysphagia, unspecified type Obesity, morbid, BMI 40.0-49.9 Encephalopathy, metabolic Hypophosphatemia Transient alteration of awareness Essential hypertension Asymptomatic stenosis of right vertebral artery Ordered: 02/02/2025 documented as of this encounter Procedures Procedure Name Priority Date/Time Associated Diagnosis Comments PHOSPHORUS Routine 02/02/2025 9:58 AM EDT MAGNESIUM Routine 02/02/2025 9:58 AM EDT BASIC METABOLIC PANEL Routine 02/02/2025 9:58 AM EDT CBC WITH AUTO DIFFERENTIAL Routine 02/02/2025 8:50 AM EDT CBC AND DIFFERENTIAL Routine 02/02/2025 8:50 AM EDT XR CHEST 1 VW Routine 02/02/2025 4:26 AM EDT OSCILLATING POSITIVE EXPIRATORY PRESSURE (OPEP) Routine 02/01/2025 8:39 AM EDT XR CHEST 1 VW Routine 02/01/2025 6:28 AM EDT CBC WITH AUTO DIFFERENTIAL Routine 02/01/2025 4:46 AM EDT CBC AND DIFFERENTIAL Routine 02/01/2025 4:46 AM EDT PHOSPHORUS Timed 02/01/2025 4:46 AM EDT MAGNESIUM Routine 02/01/2025 4:46 AM EDT BASIC METABOLIC PANEL Routine 02/01/2025 4:46 AM EDT POTASSIUM Timed 01/31/2025 12:59 PM EDT PHOSPHORUS Timed 01/31/2025 12:59 PM EDT XR CHEST 1 VW Routine 01/31/2025 6:05 AM EDT CBC WITH AUTO DIFFERENTIAL Routine 01/31/2025 3:16 AM EDT CBC AND DIFFERENTIAL Routine 01/31/2025 3:16 AM EDT PHOSPHORUS Routine 01/31/2025 3:16 AM EDT MAGNESIUM Routine 01/31/2025 3:16 AM EDT BASIC METABOLIC PANEL Routine 01/31/2025 3:16 AM EDT XR CHEST 1 VW Routine 01/30/2025 5:15 AM EDT CBC WITH AUTO DIFFERENTIAL Routine 01/30/2025 3:41 AM EDT CBC AND DIFFERENTIAL Routine 01/30/2025 3:41 AM EDT TSH Add-On 01/30/2025 3:41 AM EDT T4, FREE Add-On 01/30/2025 3:41 AM EDT PHOSPHORUS Routine 01/30/2025 3:41 AM EDT MAGNESIUM Routine 01/30/2025 3:41 AM EDT BASIC METABOLIC PANEL Routine 01/30/2025 3:41 AM EDT POCT GLUCOSE FINGERSTICK Routine 01/29/2025 7:09 AM EDT POCT GLUCOSE FINGERSTICK Routine 01/29/2025 6:15 AM EDT XR CHEST 1 VW Routine 01/29/2025 5:22 AM EDT CBC WITH AUTO DIFFERENTIAL Routine 01/29/2025 3:57 AM EDT CBC AND DIFFERENTIAL Routine 01/29/2025 3:57 AM EDT PHOSPHORUS Routine 01/29/2025 3:57 AM EDT MAGNESIUM Routine 01/29/2025 3:57 AM EDT BASIC METABOLIC PANEL Routine 01/29/2025 3:57 AM EDT POCT GLUCOSE FINGERSTICK Routine 01/28/2025 11:06 PM EDT POCT GLUCOSE FINGERSTICK Routine 01/28/2025 5:47 PM EDT POCT GLUCOSE FINGERSTICK Routine 01/28/2025 11:57 AM EDT EXTUBATION Routine 01/28/2025 11:55 AM EDT CBC WITH AUTO DIFFERENTIAL Routine 01/28/2025 11:43 AM EDT CBC AND DIFFERENTIAL Routine 01/28/2025 9:35 AM EDT XR CHEST 1 VW Routine 01/28/2025 5:51 AM EDT POCT GLUCOSE FINGERSTICK Routine 01/28/2025 5:05 AM EDT C-REACTIVE PROTEIN Routine 01/28/2025 4: 17 AM EDT PREALBUMIN Routine 01/28/2025 4:17 AM EDT PHOSPHORUS Routine 01/28/2025 4:17 AM EDT MAGNESIUM Routine 01/28/2025 4:17 AM EDT COMPREHENSIVE METABOLIC PANEL Add-On 01/28/2025 4:17 AM EDT BLOOD GAS, ARTERIAL W/CO-OXIMETRY Routine 01/28/2025 3:33 AM EDT POCT GLUCOSE FINGERSTICK Routine 01/27/2025 11:04 PM EDT BLOOD GAS, ARTERIAL W/CO-OXIMETRY Routine 01/27/2025 5:44 PM EDT POCT GLUCOSE FINGERSTICK Routine 01/27/2025 5:29 PM EDT POCT GLUCOSE FINGERSTICK Routine 01/27/2025 11:[address] CHEST WO CONTRAST DIAGNOSTIC Routine 01/27/2025 10:35 AM EDT XR CHEST 1 VW Routine 01/27/2025 5:36 AM EDT POCT GLUCOSE FINGERSTICK Routine 01/27/2025 5:29 AM EDT BLOOD GAS, ARTERIAL W/CO-OXIMETRY Routine 01/27/2025 3:29 AM EDT CBC WITH AUTO DIFFERENTIAL Routine 01/27/2025 3:12 AM EDT CBC AND DIFFERENTIAL Routine 01/27/2025 3:12 AM EDT PHOSPHORUS Routine 01/27/2025 3:12 AM EDT MAGNESIUM Routine 01/27/2025 3:12 AM EDT HEMOGLOBIN A1C Routine 01/27/2025 3:12 AM EDT LIPID PANEL Routine 01/27/2025 3:12 AM EDT COMPREHENSIVE METABOLIC PANEL Routine 01/27/2025 3:12 AM EDT POCT GLUCOSE FINGERSTICK Routine 01/26/2025 11:39 PM EDT MRI BRAIN WO CONTRAST Routine 01/26/2025 11:17 PM EDT CORTISOL Routine 01/26/2025 8:58 PM EDT ECHO COMPLETE W/ DOPPLER, COLOR FLOW AND CONTRAST Routine 01/26/2025 5:55 PM EDT BH ED INTUBATION Routine 01/26/2025 5:27 PM EDT OH CRITICAL CARE ILL/INJURED PATIENT INIT 30-74 MIN Routine 01/26/2025 5:25 PM EDT POCT GLUCOSE FINGERSTICK Routine 01/26/2025 4:39 PM EDT EEG AWAKE OR DROWSY PORTABLE STAT 01/26/2025 3:42 PM EDT BLOOD GAS, ARTERIAL W/CO-OXIMETRY Routine 01/26/2025 3:17 PM EDT HIGH SENSITIVITIY TROPONIN T 1HR STAT 01/26/2025 1:53 PM EDT URINALYSIS, MICROSCOPIC ONLY STAT 01/26/2025 1:53 PM EDT URINALYSIS W/ CULTURE IF INDICATED STAT 01/26/2025 1:53 PM EDT URINE DRUG SCREEN STAT 01/26/2025 1:5 3 PM EDT FENTANYL, URINE STAT 01/26/2025 1:[address] CEREBRAL PERFUSION W WO CONTRAST STAT 01/26/2025 1:[address] ANGIOGRAM HEAD W AI ANALYSIS OF LVO STAT 01/26/2025 1:[address] ANGIOGRAM NECK STAT 01/26/2025 1:[address] ANGIOGRAM CHEST PULMONARY EMBOLISM STAT 01/26/2025 1:[address] ABDOMEN PELVIS W CONTRAST STAT 01/26/2025 1:[address] HEAD WO CONTRAST STAT 01/26/2025 1 2:59 PM EDT SCANNED - TELEMETRY 01/26/2025 1 2:18 PM EDT ECG 12-LEAD STAT 01/26/2025 12:15 PM EDT XR CHEST 1 VW STAT 01/26/2025 12:08 PM EDT RESPIRATORY PANEL PCR W/ COVID-19 (SARS-COV-2), RN OUTPATIENT SURGERY SWAB IN UTM/VTP, 2 HR TAT STAT 01/26/2025 12:06 PM EDT AMMONIA STAT 01/26/2025 12:02 PM EDT BLOOD CULTURE STAT 01/26/2025 12:00 PM EDT POCT [id number] CT STAT 01/26/2025 11:48 AM EDT ESCUDERO TOP STAT 01/26/2025 11:42 AM EDT TSH RFX ON ABNORMAL TO FREE T4 STAT 01/26/2025 11:42 AM EDT GOLD TOP - SST STAT 01/26/2025 11:42 AM EDT DK GREEN TOP STAT 01/26/2025 11:42 AM EDT PROCALCITONIN STAT 01/26/2025 11:42 AM EDT CBC WITH AUTO DIFFERENTIAL STAT 01/26/2025 11:42 AM EDT LAVENDER TOP STAT 01/26/2025 11:42 AM EDT LIGHT BLUE TOP STAT 01/26/2025 11:42 AM EDT RAINBOW DRAW STAT 01/26/2025 11:42 AM EDT TROPONIN STAT 01/26/2025 11:42 AM EDT CBC AND DIFFERENTIAL STAT 01/26/2025 11:42 AM EDT T4, FREE STAT 01/26/2025 11:42 AM EDT B-TYPE NATRIURETIC PEPTIDE STAT 01/26/2025 11:42 AM EDT MAGNESIUM STAT 01/26/2025 11:42 AM EDT LACTIC ACID, PLASMA STAT 01/26/2025 1 1:42 AM EDT ETHANOL STAT 01/26/2025 11:42 AM EDT ACETAMINOPHEN LEVEL STAT 01/26/2025 1 1:42 AM EDT SALICYLATE LEVEL STAT 01/26/2025 11:4 2 AM EDT COMPREHENSIVE METABOLIC PANEL STAT 01/26/2025 11:42 AM EDT BLOOD CULTURE STAT 01/26/2025 11:30 AM EDT documented in this encounter Results * Magnesium (02/02/2025 9:58 AM EDT) [facility] Magnesium 2.1 1.6 - 2.4 mg/dL 02/02/2025 11:00 AM EDT [facility] Blood Venipuncture / Unknown 02/02/2025 9:58 AM EDT 02/02/2025 10:20 AM EDT us Heron Abdul MD LAB BLOOD ORDERABLES Final R esult [facility]
[address] [place] [address], * (ABNORMAL) Phosphorus (02/02/2025 9:58 AM EDT) Phosphorus 2.4(L) 2.5 - 4.5 mg/dL 02/02/2025 11:00 AM EDT [facility] Blood Venipuncture / Unknown 02/02/2025 9:58 AM EDT 02/02/2025 10:20 AM EDT us Heron Abdul MD LAB BLOOD ORDERABLES Final R esult [facility]
[address] [place] [address], * (ABNORMAL) Basic Metabolic Panel (02/02/2025 9:58 AM EDT) Glucose 143(H) 65 - 99 mg/dL 02/02/2025 11:00 AM EDT [facility] BUN 8.6 8.0 - 23.0 mg/dL 02/02/2025 11:00 AM EDT [facility] Creatinine 0.61(L) 0.76 - 1.27 mg/dL 02/02/2025 11:00 AM EDT [facility] Sodium 140 136 - 145 mmol/L 02/02/2025 11:00 AM EDT [facility] Potassium 3.7 3.5 - 5.2 mmol/L 02/02/2025 11:00 AM EDT [facility] Chloride 106 98 - 107 mmol/L 02/02/2025 11:00 AM EDT [facility] CO2 23.5 22.0 - 29.0 mmol/L 02/02/2025 11:00 AM EDT [facility] Calcium 9.0 8.6 - 10.5 mg/dL 02/02/2025 11:00 AM EDT [facility] BUN/Creatinine Ratio 14.1 7.0 - 25.0 02/02/2025 11:00 AM EDT [facility] Anion Gap 10.5 5.0 - 15.0 mmol/L 02/02/2025 11:00 AM EDT [facility] eGFR 105.3 >60.0 mL/min/1.7 3 02/02/2025 11:00 AM EDT [facility] Blood Venipuncture / Unknown 02/02/2025 9:58 AM EDT 02/02/2025 10:20 AM EDT [facility] - 02/02/2025 11:00 AM EDT GFR Categories in Chronic Kidney Disease (CKD) GFR Category GFR (mL/min/1.73) Interpretation G1 90 or greater Normal or high (1) G2 60-89 Mild decrease (1) G3a 45-59 Mild to moderate decrease G3b 30-44 Moderate to severe decrease G4 15-29 Severe decrease G5 14 or less Kidney failure (1)In the absence of evidence of kidney disease, neither GFR category G1 or G2 fulfill the criteria for CKD. eGFR calculation 2020 CKD-EPI creatinine equation, which does not include race as a factor Heron Abdul MD LAB BLOOD ORDERABLES Final R esult [facility]
[address] [place] [address], * (ABNORMAL) CBC Auto Differential (02/02/2025 8:50 AM EDT) WBC 6.20 3.40 - 10.80 10*3/mm3 02/02/2025 9:17 AM EDT [facility] RBC 4.20 4.14 - 5.80 10*6/mm3 02/02/2025 9:17 AM EDT [facility] Hemoglobin 14.1 13.0 - 17.7 g/dL 02/02/2025 9:17 AM EDT [facility] Hematocrit 40.5 37.5 - 51.0 % 02/02/2025 9:17 AM EDT [facility] MCV 96.4 79.0 - 97.0 fL 02/02/2025 9:17 AM EDT [facility] MCH 33.6(H) 26.6 - 33.0 pg 02/02/2025 9:17 AM [facility] MCHC 34.8 31.5 - 35.7 g/dL 02/02/2025 9:17 AM [facility] RDW 12.9 12.3 - 15.4 % 02/02/2025 9:17 AM [facility] RDW-SD 45.5 37.0 - 54.0 fl 02/02/2025 9:17 AM [facility] MPV 9.6 6.0 - 12.0 fL 02/02/2025 9:17 AM [facility] Platelets 143 140 - 450 10*3/mm3 02/02/2025 9:17 AM [facility] Neutrophil % 52.0 42.7 - 76.0 % 02/02/2025 9:17 AM [facility] Lymphocyte % 30.3 19.6 - 45.3 % 02/02/2025 9:17 AM [facility] Monocyte % 10.3 5.0 - 12.0 % 02/02/2025 9:17 AM [facility] Eosinophil % 3.4 0.3 - 6.2 % 02/02/2025 9:17 AM [facility] Basophil % 0.6 0.0 - 1.5 % 02/02/2025 9:17 AM [facility] Immature Grans % 3.4(H) 0.0 - 0.5 % 02/02/2025 9:17 AM [facility] Neutrophils, Absolute 3.22 1.70 - 7.00 10*3/mm3 02/02/2025 9:17 AM [facility] Lymphocytes, Absolute 1.88 0.70 - 3.10 10*3/mm3 02/02/2025 9:17 AM [facility] Monocytes, Absolute 0.64 0.10 - 0.90 10*3/mm3 02/02/2025 9:17 AM [facility] Eosinophils, Absolute 0.21 0.00 - 0.40 10*3/mm3 02/02/2025 9:17 AM EDT [facility] Basophils, Absolute 0.04 0.00 - 0.20 10*3/mm3 02/02/2025 9:17 AM EDT [facility] Immature Grans, Absolute 0.21(H) 0.00 - 0.05 10*3/mm3 02/02/2025 9:17 AM EDT [facility] nRBC 0.0 0.0 - 0.2 /100 WBC 02/02/2025 9:17 AM EDT [facility] Blood Venipuncture / Unknown 02/02/2025 8:50 AM EDT 02/02/2025 8:57 AM EDT Heron Abdul MD LAB BLOOD ORDERABLES Final R esult [facility]
[address] [place] [address], * XR Chest 1 View (02/02/2025 4:26 AM EDT) Anatomical Region Laterality Modality Body N/A Radiographic Cristine ging 02/02/2025 7:40 AM EDT Impressions 02/02/2025 7:43 AM EDT Impression: No evidence of pneumonia. Electronically Signed: Zack Francois MD 02/02/2025 7:43 AM EDT Workstation ID: [id number] Narrative 02/02/2025 7:43 AM EDT XR CHEST 1 VW Date of Exam: 02/02/2025 3:10 AM EDT Indication: eval for PNA. Evaluate for pneumonia. Comparison: 02/01/2025 radiographs Findings: Unchanged cardiomediastinal silhouette. No focal airspace opacity, pleural effusion, or pneumothorax. No acute bone abnormality. Procedure Note Zakc Francois MD - 02/02/2025 XR CHEST 1 VW Date of Exam: 02/02/2025 3:10 AM EDT Indication: eval for PNA. Evaluate for pneumonia. Comparison: 02/01/2025 radiographs Findings: Unchanged cardiomediastinal silhouette. No focal airspace opacity, pleuraleffusion, or pneumothorax. No acute bone abnormality. IMPRESSION: Impression: No evidence of pneumonia. Electronically Signed: Zack Francois MD 02/02/2025 7:43 AM EDT Workstation ID: [id number] Heron Abdul MD [facility] ORDER DANIELLA Final Result * XR Chest 1 View (02/01/2025 6:28 AM EDT) Anatomical Region Laterality Modality Body N/A Radiographic Cristine ging 02/01/2025 7:57 AM EDT Impressions 02/01/2025 7:58 AM EDT Impression: No significant interval change. Electronically Signed: Bryn Correa MD 02/01/2025 7:58 AM EDT Workstation ID: [id number] Narrative 02/01/2025 7:58 AM EDT XR CHEST 1 VW Date of Exam: 02/01/2025 5:36 AM EDT Indication: eval for PNA Comparison: Chest radiograph 01/31/2025 Findings: Stable cardiomediastinal silhouette. Patient rotated towards the left, limiting assessment of left lower lobe. No new consolidation, edema, large effusion or pneumothorax. Degenerative elated osseous change. Procedure Note Bryn Correa MD - 02/01/2025 XR CHEST 1 VW Date of Exam: 02/01/2025 5:36 AM EDT Indication: eval for PNA Comparison: Chest radiograph 01/31/2025 Findings: Stable cardiomediastinal silhouette. Patient rotated towards the left,limiting assessment of left lower lobe. No new consolidation, edema, largeeffusion or pneumothorax. Degenerative elated osseous change. IMPRESSION: Impression: No significant interval change. Electronically Signed: Bryn Correa MD 02/01/2025 7:58 AM EDT Workstation ID: [id number] Heron RAPHAEL DIAGNOSTIC IMAGING ORDER DANIELLA Final Result * (ABNORMAL) CBC Auto Differential (02/01/2025 4:46 AM EDT) [facility] WBC 6.19 3.40 - 10.80 10*3/mm3 02/01/2025 5:09 AM EDT [facility] RBC 3.94(L) 4.14 - 5.80 10*6/mm3 02/01/2025 5:09 AM EDT [facility] Hemoglobin 13.2 13.0 - 17.7 g/dL 02/01/2025 5:09 AM EDT [facility] Hematocrit 38.3 37.5 - 51.0 % 02/01/2025 5:09 AM EDT [facility] MCV 97.2(H) 79.0 - 97.0 fL 02/01/2025 5:09 AM EDT [facility] MCH 33.5(H) 26.6 - 33.0 pg 02/01/2025 5:09 AM EDT [facility] MCHC 34.5 31.5 - 35.7 g/dL 02/01/2025 5:09 AM EDT [facility] RDW 12.7 12.3 - 15.4 % 02/01/2025 5:09 AM EDT [facility] RDW-SD 45.9 37.0 - 54.0 fl 02/01/2025 5:09 AM EDT [facility] MPV 9.1 6.0 - 12.0 fL 02/01/2025 5:09 AM EDT [facility] Platelets 141 140 - 450 10*3/mm3 02/01/2025 5:09 AM EDT [facility] Neutrophil % 56.0 42.7 - 76.0 % 02/01/2025 5:09 AM EDT [facility] Lymphocyte % 25.5 19.6 - 45.3 % 02/01/2025 5:09 AM EDT [facility] Monocyte % 11.6 5.0 - 12.0 % 02/01/2025 5:09 AM EDT [facility] Eosinophil % 4.0 0.3 - 6.2 % 02/01/2025 5:09 AM EDT [facility] Basophil % 0.8 0.0 - 1.5 % 02/01/2025 5:09 AM EDT [facility] Immature Grans % 2.1(H) 0.0 - 0.5 % 02/01/2025 5:09 AM EDT [facility] Neutrophils, Absolute 3.46 1.70 - 7.00 10*3/mm3 02/01/2025 5:09 AM EDT [facility] Lymphocytes, Absolute 1.58 0.70 - 3.10 10*3/mm3 02/01/2025 5:09 AM EDT [facility] Monocytes, Absolute 0.72 0.10 - 0.90 10*3/mm3 02/01/2025 5:09 AM EDT [facility] Eosinophils, Absolute 0.25 0.00 - 0.40 10*3/mm3 02/01/2025 5:09 AM EDT [facility] Basophils, Absolute 0.05 0.00 - 0.20 10*3/mm3 02/01/2025 5:09 AM EDT [facility] Immature Grans, Absolute 0.13(H) 0.00 - 0.05 10*3/mm3 02/01/2025 5:09 AM EDT [facility] nRBC 0.3(H) 0.0 - 0.2 /100 WBC 02/01/2025 5:09 AM EDT [facility] Blood Venipuncture / Unknown 02/01/2025 4:46 AM EDT 02/01/2025 5:05 AM EDT us Heron Abdul MD LAB BLOOD ORDERABLES Final R esult [facility]
[address] [place] [address], * Magnesium (02/01/2025 4:46 AM EDT) Magnesium 2.2 1.6 - 2.4 mg/dL 02/01/2025 5:42 AM EDT [facility] Blood Venipuncture / Unknown 02/01/2025 4:46 AM EDT 02/01/2025 5:06 AM EDT Heron Abdul MD LAB BLOOD ORDERABLES Final R esult [facility]
[address] [place] [address], * (ABNORMAL) Basic Metabolic Panel (02/01/2025 4:46 AM EDT) Glucose 117(H) 65 - 99 mg/dL 02/01/2025 5:42 AM EDT [facility] BUN 11.2 8.0 - 23.0 mg/dL 02/01/2025 5:42 AM EDT [facility] Creatinine 0.70(L) 0.76 - 1.27 mg/dL 02/01/2025 5:42 AM EDT [facility] Sodium 140 136 - 145 mmol/L 02/01/2025 5:42 AM EDT [facility] Potassium 4.0 3.5 - 5.2 mmol/L 02/01/2025 5:42 AM EDT [facility] Chloride 106 98 - 107 mmol/L 02/01/2025 5:42 AM EDT [facility] CO2 25.0 22.0 - 29.0 mmol/L 02/01/2025 5:42 AM EDT [facility] Calcium 8.8 8.6 - 10.5 mg/dL 02/01/2025 5:42 AM EDT [facility] BUN/Creatinine Ratio 16.0 7.0 - 25.0 02/01/2025 5:42 AM EDT [facility] Anion Gap 9.0 5.0 - 15.0 mmol/L 02/01/2025 5:42 AM EDT [facility] eGFR 101.0 >60.0 mL/min/1.7 3 02/01/2025 5:42 AM EDT [facility] Blood Venipuncture / Unknown 02/01/2025 4:46 AM EDT 02/01/2025 5:06 AM EDT Narrative [facility] - 02/01/2025 5:42 AM EDT GFR Categories in Chronic Kidney Disease (CKD) GFR Category GFR (mL/min/1.73) Interpretation G1 90 or greater Normal or high (1) G2 60-89 Mild decrease (1) G3a 45-59 Mild to moderate decrease G3b 30-44 Moderate to severe decrease G4 15-29 Severe decrease G5 14 or less Kidney failure (1)In the absence of evidence of kidney disease, neither GFR category G1 or G2 fulfill the criteria for CKD. eGFR calculation 2020 CKD-EPI creatinine equation, which does not include race as a factor Heron Abdul MD LAB BLOOD ORDERABLES Final R esult Performing Organization Address City/[facility] [address]/ZIP Co de Phone Number [facility]
[address] [place] [address], * Phosphorus (02/01/2025 4:46 AM EDT) Phosphorus 2.7 2.5 - 4.5 mg/dL 02/01/2025 5:45 AM EDT [facility] Blood Venipuncture / Unknown 02/01/2025 4:46 AM EDT 02/01/2025 5:06 AM EDT Heron Abdul MD LAB BLOOD ORDERABLES Final R esult [facility]
[address] [place] [address], * (ABNORMAL) Phosphorus (01/31/2025 12:59 PM EDT) Phosphorus 1.7(LL) 2.5 - 4.5 mg/dL 01/31/2025 1:42 PM EDT [facility] Blood Venipuncture / Unknown 01/31/2025 12:59 PM EDT 01/31/2025 1:10 PM EDT Shawn Lal Hussein REFRIGERATING ENGINEER LAB BLOOD ORDERABLES Roxanna l Result Performing Organization Address [facility] [address]/[facility] Co de Phone Number [facility]
[address] [place] [address], [place] [phone] * Potassium (01/31/2025 12:59 PM EDT) Potassium 4.4 3.5 - 5.2 mmol/L 01/31/2025 1:38 PM EDT [facility] Blood Venipuncture / Unknown 01/31/2025 12:59 PM EDT 01/31/2025 1:10 PM EDT Shawn Hobbsker REFRIGERATING ENGINEER LAB BLOOD ORDERABLES Roxanna l Result Performing Organization Address [facility] [address]/[facility] de Phone Number [facility]
[address] [place] [address], * XR Chest 1 View (01/31/2025 6:05 AM EDT) Anatomical Region Laterality Modality Body N/A Radiographic Cristine ging 01/31/2025 8:31 AM EDT Impressions 01/31/2025 8:32 AM EDT Impression: No acute process. Electronically Signed: Mustapha Peralta MD 01/31/2025 8:32 AM EDT Workstation ID: [id number] Narrative 01/31/2025 8:32 AM EDT XR CHEST 1 VW Date of Exam: 01/31/2025 6:00 AM EDT Indication: eval for PNA Comparison: 01/30/2025 Findings: Heart size normal. Lungs without discrete consolidation. Negative for pneumothorax or effusion. Osseous structures grossly intact. Procedure Note Mustapha Peralta MD - 01/31/2025 XR CHEST 1 VW Date of Exam: 01/31/2025 6:00 AM EDT Indication: eval for PNA Comparison: 01/30/2025 Findings: Heart size normal. Lungs without discrete consolidation. Negative forpneumothorax or effusion. Osseous structures grossly intact. IMPRESSION: Impression: No acute process. Electronically Signed: Mustapha Peralta MD 01/31/2025 8:32 AM EDT Workstation ID: [id number] us Heron Abdul MD IM[facility] DIAGNOSTIC IMAGING ORDER DANIELLA Final Result * (ABNORMAL) CBC Auto Differential (01/31/2025 3:16 AM EDT) WBC 5.59 3.40 - 10.80 10*3/mm3 01/31/2025 4:04 AM EDT [facility] RBC 3.92(L) 4.14 - 5.80 10*6/mm3 01/31/2025 4:04 AM EDT [facility] Hemoglobin 13.4 13.0 - 17.7 g/dL 01/31/2025 4:04 AM EDT [facility] Hematocrit 39.1 37.5 - 51.0 % 01/31/2025 4:04 AM EDT [facility] MCV 99.7(H) 79.0 - 97.0 fL 01/31/2025 4:04 AM EDT [facility] MCH 34.2(H) 26.6 - 33.0 pg 01/31/2025 4:04 AM EDT [facility] MCHC 34.3 31.5 - 35.7 g/dL 01/31/2025 4:04 AM EDT [facility] RDW 13.0 12.3 - 15.4 % 01/31/2025 4:04 AM EDT [facility] RDW-SD 48.1 37.0 - 54.0 fl 01/31/2025 4:04 AM EDT [facility] MPV 9.2 6.0 - 12.0 fL 01/31/2025 4:04 AM EDT [facility] Platelets 126(L) 140 - 450 10*3/mm3 01/31/2025 4:04 AM [facility] Neutrophil % 53.3 42.7 - 76.0 % 01/31/2025 4:04 AM [facility] Lymphocyte % 25.2 19.6 - 45.3 % 01/31/2025 4:04 AM [facility] Monocyte % 12.2(H) 5.0 - 12.0 % 01/31/2025 4:04 AM [facility] Eosinophil % 7.7(H) 0.3 - 6.2 % 01/31/2025 4:04 AM [facility] Basophil % 0.7 0.0 - 1.5 % 01/31/2025 4:04 AM [facility] Immature Grans % 0.9(H) 0.0 - 0.5 % 01/31/2025 4:04 AM [facility] Neutrophils, Absolute 2.98 1.70 - 7.00 10*3/mm3 01/31/2025 4:04 AM [facility] Lymphocytes, Absolute 1.41 0.70 - 3.10 10*3/mm3 01/31/2025 4:04 AM [facility] Monocytes, Absolute 0.68 0.10 - 0.90 10*3/mm3 01/31/2025 4:04 AM [facility] Eosinophils, Absolute 0.43(H) 0.00 - 0.40 10*3/mm3 01/31/2025 4:04 AM [facility] Basophils, Absolute 0.04 0.00 - 0.20 10*3/mm3 01/31/2025 4:04 AM [facility] Immature Grans, Absolute 0.05 0.00 - 0.05 10*3/mm3 01/31/2025 4:04 AM [facility] nRBC 0.4(H) 0.0 - 0.2 /100 WBC 01/31/2025 4:04 AM [facility] Blood Venipuncture / Unknown 01/31/2025 3:16 AM EDT 01/31/2025 3:51 AM EDT us Heron Abdul MD LAB BLOOD ORDERABLES Final R esult Performing Organization Address City/[facility] [address]/ZIP Co de Phone Number [facility]
[address] [place] [address], * Magnesium (01/31/2025 3:16 AM EDT) Magnesium 2.1 1.6 - 2.4 mg/dL 01/31/2025 4:19 AM EDT [facility] Blood Venipuncture / Unknown 01/31/2025 3:16 AM EDT 01/31/2025 3:50 AM EDT us Heron Abdul MD LAB BLOOD ORDERABLES Final R esult Performing Organization Address [facility] [address]/[facility] Co de Phone Number [facility]
[address] [place] [address], * (ABNORMAL) Phosphorus (01/31/2025 3:16 AM EDT) Phosphorus 1.8(LL) 2.5 - 4.5 mg/dL 01/31/2025 4:23 AM EDT [facility] Blood Venipuncture / Unknown 01/31/2025 3:16 AM EDT 01/31/2025 3:50 AM EDT us Heron Abdul MD LAB BLOOD ORDERABLES Final R esult Performing Organization Address City/[facility] [address]/ZIP Co de Phone Number [facility]
[address] [place] [address], * (ABNORMAL) Basic Metabolic Panel (01/31/2025 3:16 AM EDT) Glucose 108(H) 65 - 99 mg/dL 01/31/2025 4:19 AM [facility] BUN 15.6 8.0 - 23.0 mg/dL 01/31/2025 4:19 AM [facility] Creatinine 0.73(L) 0.76 - 1.27 mg/dL 01/31/2025 4:19 AM [facility] Sodium 135(L) 136 - 145 mmol/L 01/31/2025 4:19 AM [facility] Potassium 3.6 3.5 - 5.2 mmol/L 01/31/2025 4:19 AM [facility] Chloride 104 98 - 107 mmol/L 01/31/2025 4:19 AM [facility] CO2 21.1(L) 22.0 - 29.0 mmol/L 01/31/2025 4:19 AM [facility] Calcium 8.5(L) 8.6 - 10.5 mg/dL 01/31/2025 4:19 AM [facility] BUN/Creatinine Ratio 21.4 7.0 - 25.0 01/31/2025 4:19 AM [facility] Anion Gap 9.9 5.0 - 15.0 mmol/L 01/31/2025 4:19 AM [facility] eGFR 99.7 >60.0 mL/min/1.7 3 01/31/2025 4:19 AM [facility] Blood Venipuncture / Unknown 01/31/2025 3:16 AM EDT 01/31/2025 3:50 AM [facility] - 01/31/2025 4:19 AM EDT GFR Categories in Chronic Kidney Disease (CKD) GFR Category GFR (mL/min/1.73) Interpretation G1 90 or greater Normal or high (1) G2 60-89 Mild decrease (1) G3a 45-59 Mild to moderate decrease G3b 30-44 Moderate to severe decrease G4 15-29 Severe decrease G5 14 or less Kidney failure (1)In the absence of evidence of kidney disease, neither GFR category G1 or G2 fulfill the criteria for CKD. eGFR calculation 2020 CKD-EPI creatinine equation, which does not include race as a factor Heron Abdul MD LAB BLOOD ORDERABLES Final R esult [facility]
[address] [place] [address], * XR Chest 1 View (01/30/2025 5:15 AM EDT) Anatomical Region Laterality Modality Body N/A Radiographic Cristine ging 01/30/2025 8:57 AM EDT Impressions 01/30/2025 8:58 AM EDT Impression: Stable chest without acute cardiopulmonary process. Electronically Signed: Carina Jean MD 01/30/2025 8:58 AM EDT Workstation ID: [id number] Narrative 01/30/2025 8:58 AM EDT XR CHEST 1 VW Date of Exam: 01/30/2025 5:10 AM EDT Indication: eval for PNA Comparison: Chest x-ray 01/29/2025 Findings: The heart is stable in size. No evidence for pneumothorax or large pleural effusion. No focal consolidation. Procedure Note Carina Jean MD - 01/30/2025 XR CHEST 1 VW Date of Exam: 01/30/2025 5:10 AM EDT Indication: eval for PNA Comparison: Chest x-ray 01/29/2025 Findings: The heart is stable in size. No evidence for pneumothorax or large pleuraleffusion. No focal consolidation. IMPRESSION: Impression: Stable chest without acute cardiopulmonary process. Electronically Signed: Carina Jean MD 01/30/2025 8:58 AM EDT Workstation ID: [id number] Heron Abdul MD IMG DIAGNOSTIC IMAGING ORDER DANIELLA Final Result * T4, Free (01/30/2025 3:41 AM EDT) Free T4 1.16 0.92 - 1.68 ng/dL 01/30/2025 2:15 PM EDT [facility] Blood Venipuncture / Unknown 01/30/2025 3:41 AM EDT 01/30/2025 4:03 AM EDT Heron Abdul MD LAB BLOOD ORDERABLES Final R esult [facility]
[address] [place] [address], * TSH (01/30/2025 3:41 AM EDT) Pathologist [facility] TSH 1.180 0.270 - 4.200 uIU/mL 01/30/2025 2:15 PM EDT [facility] Blood Venipuncture / Unknown 01/30/2025 3:41 AM EDT 01/30/2025 4:03 AM EDT Heron Abdul MD LAB BLOOD ORDERABLES Final R esult Performing Organization Address City/[facility] [address]/ZIP Co de Phone Number [facility]
[address] [place] [address], * (ABNORMAL) CBC Auto Differential (01/30/2025 3:41 AM EDT) WBC 2.70(L) 3.40 - 10.80 10*3/mm3 01/30/2025 4:12 AM EDT [facility] RBC 4.73 4.14 - 5.80 10*6/mm3 01/30/2025 4:12 AM EDT [facility] Hemoglobin 16.0 13.0 - 17.7 g/dL 01/30/2025 4:12 AM EDT [facility] Hematocrit 48.8 37.5 - 51.0 % 01/30/2025 4:12 AM EDT [facility] MCV 103.2(H) 79.0 - 97.0 fL 01/30/2025 4:12 [facility] MCH 33.8(H) 26.6 - 33.0 pg 01/30/2025 4:12 AM [facility] MCHC 32.8 31.5 - 35.7 g/dL 01/30/2025 4:12 AM [facility] RDW 13.1 12.3 - 15.4 % 01/30/2025 4:12 [facility] RDW-SD 49.7 37.0 - 54.0 fl 01/30/2025 4:12 AM [facility] MPV 8.8 6.0 - 12.0 fL 01/30/2025 4:12 AM [facility] Platelets 161 140 - 450 10*3/mm3 01/30/2025 4:12 AM [facility] Neutrophil % 57.7 42.7 - 76.0 % 01/30/2025 4:12 AM [facility] Lymphocyte % 21.5 19.6 - 45.3 % 01/30/2025 4:12 AM [facility] Monocyte % 13.0(H) 5.0 - 12.0 % 01/30/2025 4:12 AM [facility] Eosinophil % 6.7(H) 0.3 - 6.2 % 01/30/2025 4:12 AM [facility] Basophil % 1.1 0.0 - 1.5 % 01/30/2025 4:12 AM [facility] Immature Grans % 0.0 0.0 - 0.5 % 01/30/2025 4:12 AM [facility] Neutrophils, Absolute 1.56(L) 1.70 - 7.00 10*3/mm3 01/30/2025 4:12 AM [facility] Lymphocytes, Absolute 0.58(L) 0.70 - 3.10 10*3/mm3 01/30/2025 4:12 AM EDT [facility] Monocytes, Absolute 0.35 0.10 - 0.90 10*3/mm3 01/30/2025 4:12 AM EDT [facility] Eosinophils, Absolute 0.18 0.00 - 0.40 10*3/mm3 01/30/2025 4:12 AM EDT [facility] Basophils, Absolute 0.03 0.00 - 0.20 10*3/mm3 01/30/2025 4:12 AM EDT [facility] Immature Grans, Absolute 0.00 0.00 - 0.05 10*3/mm3 01/30/2025 4:12 AM EDT [facility] nRBC 0.0 0.0 - 0.2 /100 WBC 01/30/2025 4:12 AM EDT [facility] Blood Venipuncture / Unknown 01/30/2025 3:41 AM EDT 01/30/2025 4:04 AM EDT Heron Abdul MD LAB BLOOD ORDERABLES Final R esult [facility]
[address] [place] [address], * Magnesium (01/30/2025 3:41 AM EDT) Magnesium 2.2 1.6 - 2.4 mg/dL 01/30/2025 4:38 AM EDT [facility] Blood Venipuncture / Unknown 01/30/2025 3:41 AM EDT 01/30/2025 4:03 AM EDT Heron Abdul MD LAB BLOOD ORDERABLES Final R esult [facility]
[address] [place] [address], [place] [phone] * Phosphorus (01/30/2025 3:41 AM EDT) Phosphorus 2.5 2.5 - 4.5 mg/dL 01/30/2025 4:41 AM EDT [facility] Comment:Result checked Blood Venipuncture / Unknown 01/30/2025 3:41 AM EDT 01/30/2025 4:03 AM EDT Heron Abdul MD LAB BLOOD ORDERABLES Final R esult [facility]
[address] [place] [address], * (ABNORMAL) Basic Metabolic Panel (01/30/2025 3:41 AM EDT) Glucose 148(H) 65 - 99 mg/dL 01/30/2025 4:38 AM EDT [facility] BUN 25.1(H) 8.0 - 23.0 mg/dL 01/30/2025 4:38 AM EDT [facility] Creatinine 0.91 0.76 - 1.27 mg/dL 01/30/2025 4:38 AM EDT [facility] Sodium 141 136 - 145 mmol/L 01/30/2025 4:38 AM EDT [facility] Potassium 4.3 3.5 - 5.2 mmol/L 01/30/2025 4:38 AM EDT [facility] Chloride 107 98 - 107 mmol/L 01/30/2025 4:38 AM EDT [facility] CO2 21.8(L) 22.0 - 29.0 mmol/L 01/30/2025 4:38 AM EDT [facility] Calcium 9.0 8.6 - 10.5 mg/dL 01/30/2025 4:38 AM EDT [facility] BUN/Creatinine Ratio 27.6(H) 7.0 - 25.0 01/30/2025 4:38 AM EDT [facility] Anion Gap 12.2 5.0 - 15.0 mmol/L 01/30/2025 4:38 AM EDT [facility] eGFR 92.4 >60.0 mL/min/1.7 3 01/30/2025 4:38 AM EDT [facility] Blood Venipuncture / Unknown 01/30/2025 3:41 AM EDT 01/30/2025 4:03 AM EDT Narrative [facility] - 01/30/2025 4:38 AM EDT GFR Categories in Chronic Kidney Disease (CKD) GFR Category GFR (mL/min/1.73) Interpretation G1 90 or greater Normal or high (1) G2 60-89 Mild decrease (1) G3a 45-59 Mild to moderate decrease G3b 30-44 Moderate to severe decrease G4 15-29 Severe decrease G5 14 or less Kidney failure (1)In the absence of evidence of kidney disease, neither GFR category G1 or G2 fulfill the criteria for CKD. eGFR calculation 2020 CKD-EPI creatinine equation, which does not include race as a factor Heron Abdul MD LAB BLOOD ORDERABLES Final R esult [facility]
[address] [place] [address], * POC Glucose Once (01/29/2025 7:09 AM EDT) Glucose 119 70 - 130 mg/dL 01/29/2025 7:12 AM EDT [facility] Blood 01/29/2025 7:09 AM EDT 01/29/2025 7:12 AM EDT Heron Abdul MD POINT OF CARE TEST ORDERABLE S Final Result Performing Organization Address City/[facility] [address]/ZIP Co de Phone Number [facility]
[address] [place] [address], * POC Glucose Once (01/29/2025 6:15 AM EDT) Glucose 117 70 - 130 mg/dL 01/29/2025 7:11 AM EDT [facility] Blood 01/29/2025 6:15 AM EDT 01/29/2025 7:11 AM EDT Heron Abdul MD POINT OF CARE TEST ORDERABLE S Final Result [facility]
[address] [place] [address], * XR Chest 1 View (01/29/2025 5:22 AM EDT) Anatomical Region Laterality Modality Body N/A Radiographic Cristine ging 01/29/2025 8:09 AM EDT Impressions 01/29/2025 8:11 AM EDT Impression: 1.Interval extubation. 2.Mild left basilar opacities, slightly improved in the interval. 3.Possible small left effusion, as before. Electronically Signed: Eric Mcmillan 01/29/2025 8:11 AM EDT Workstation ID: [id number] Narrative 01/29/2025 8:11 AM EDT XR CHEST 1 VW Date of Exam: 01/29/2025 2:27 AM EDT Indication: Intubated Patient Comparison: 01/28/2025 Findings: Interval extubation. Mild left basilar opacities, slightly improved in the interval. No definite new infiltrate. No significant pneumothorax. Possible small left effusion, as before. Heart size and mediastinal contour appear unchanged. Procedure Note Eric Mcmillan MD - 01/29/2025 XR CHEST 1 VW Date of Exam: 01/29/2025 2:27 AM EDT Indication: Intubated Patient Comparison: 01/28/2025 Findings: Interval extubation. Mild left basilar opacities, slightly improved in theinterval. No definite new infiltrate. No significant pneumothorax.Possible small left effusion, as before. Heart size and mediastinalcontour appear unchanged. IMPRESSION: Impression: 1.Interval extubation. 2.Mild left basilar opacities, slightly improved in the interval. 3.Possible small left effusion, as before. Electronically Signed: Eric Mcmillan 01/29/2025 8:11 AM EDT Workstation ID: [id number] Nahun Baca MD IM DIAGNOSTIC IMAGING ORDERABLES Final Result * (ABNORMAL) CBC Auto Differential (01/29/2025 3:57 AM EDT) WBC 11.21(H) 3.40 - 10.80 10*3/mm3 01/29/2025 4:38 AM EDT [facility] RBC 4.69 4.14 - 5.80 10*6/mm3 01/29/2025 4:38 AM EDT [facility] Hemoglobin 15.7 13.0 - 17.7 g/dL 01/29/2025 4:38 AM EDT [facility] Hematocrit 47.9 37.5 - 51.0 % 01/29/2025 4:38 AM EDT [facility] MCV 102.1(H) 79.0 - 97.0 fL 01/29/2025 4:38 AM EDT [facility] MCH 33.5(H) 26.6 - 33.0 pg 01/29/2025 4:38 AM EDT [facility] MCHC 32.8 31.5 - 35.7 g/dL 01/29/2025 4:38 AM EDT [facility] RDW 13.2 12.3 - 15.4 % 01/29/2025 4:38 AM EDT [facility] RDW-SD 50.1 37.0 - 54.0 fl 01/29/2025 4:38 AM EDT [facility] MPV 9.1 6.0 - 12.0 fL 01/29/2025 4:38 AM EDT [facility] Platelets 174 140 - 450 10*3/mm3 01/29/2025 4:38 AM EDT [facility] Comment:Result checked Neutrophil % 72.7 42.7 - 76.0 % 01/29/2025 4:38 AM EDT [facility] Lymphocyte % 16.1(L) 19.6 - 45.3 % 01/29/2025 4:38 AM EDT [facility] Monocyte % 9.4 5.0 - 12.0 % 01/29/2025 4:38 AM EDT [facility] Eosinophil % 1.0 0.3 - 6.2 % 01/29/2025 4:38 AM EDT [facility] Basophil % 0.3 0.0 - 1.5 % 01/29/2025 4:38 AM EDT [facility] Immature Grans % 0.5 0.0 - 0.5 % 01/29/2025 4:38 AM EDT [facility] Neutrophils, Absolute 8.15(H) 1.70 - 7.00 10*3/mm3 01/29/2025 4:38 AM EDT [facility] Lymphocytes, Absolute 1.81 0.70 - 3.10 10*3/mm3 01/29/2025 4:38 AM EDT [facility] Monocytes, Absolute 1.05(H) 0.10 - 0.90 10*3/mm3 01/29/2025 4:38 AM EDT [facility] Eosinophils, Absolute 0.11 0.00 - 0.40 10*3/mm3 01/29/2025 4:38 AM EDT [facility] Basophils, Absolute 0.03 0.00 - 0.20 10*3/mm3 01/29/2025 4:38 AM EDT [facility] Immature Grans, Absolute 0.06(H) 0.00 - 0.05 10*3/mm3 01/29/2025 4:38 AM EDT [facility] nRBC 0.0 0.0 - 0.2 /100 WBC 01/29/2025 4:38 AM EDT [facility] Blood Venipuncture / Unknown 01/29/2025 3:57 AM EDT 01/29/2025 4:32 AM EDT us Heron Abdul MD LAB BLOOD ORDERABLES Final R esult [facility]
[address] [place] [address], * Magnesium (01/29/2025 3:57 AM EDT) Magnesium 2.3 1.6 - 2.4 mg/dL 01/29/2025 5:17 AM EDT [facility] Blood Venipuncture / Unknown 01/29/2025 3:57 AM EDT 01/29/2025 4:20 AM EDT Heron Abdul MD LAB BLOOD ORDERABLES Final R esult [facility]
[address] [place] [address], * Phosphorus (01/29/2025 3:57 AM EDT) Phosphorus 3.9 2.5 - 4.5 mg/dL 01/29/2025 4:47 AM EDT [facility] Blood Venipuncture / Unknown 01/29/2025 3:57 AM EDT 01/29/2025 4:20 AM EDT Heron Abdul MD LAB BLOOD ORDERABLES Final R esult [facility]
[address] [place] [address], * (ABNORMAL) Basic Metabolic Panel (01/29/2025 3:57 AM EDT) Glucose 118(H) 65 - 99 mg/dL 01/29/2025 5:17 AM EDT [facility] BUN 24.2(H) 8.0 - 23.0 mg/dL 01/29/2025 5:17 AM EDT [facility] Creatinine 0.94 0.76 - 1.27 mg/dL 01/29/2025 5:17 AM EDT [facility] Sodium 141 136 - 145 mmol/L 01/29/2025 5:17 AM EDT [facility] Potassium 3.9 3.5 - 5.2 mmol/L 01/29/2025 5:17 AM EDT [facility] Chloride 108(H) 98 - 107 mmol/L 01/29/2025 5:17 AM EDT [facility] CO2 18.4(L) 22.0 - 29.0 mmol/L 01/29/2025 5:17 AM EDT [facility] Calcium 9.3 8.6 - 10.5 mg/dL 01/29/2025 5:17 AM EDT [facility] BUN/Creatinine Ratio 25.7(H) 7.0 - 25.0 01/29/2025 5:17 AM EDT [facility] Anion Gap 14.6 5.0 - 15.0 mmol/L 01/29/2025 5:17 AM EDT [facility] eGFR 88.9 >60.0 mL/min/1.7 3 01/29/2025 5:17 AM EDT [facility] Blood Venipuncture / Unknown 01/29/2025 3:57 AM EDT 01/29/2025 4:20 AM EDT [facility] - 01/29/2025 5:17 AM EDT GFR Categories in Chronic Kidney Disease (CKD) GFR Category GFR (mL/min/1.73) Interpretation G1 90 or greater Normal or high (1) G2 60-89 Mild decrease (1) G3a 45-59 Mild to moderate decrease G3b 30-44 Moderate to severe decrease G4 15-29 Severe decrease G5 14 or less Kidney failure (1)In the absence of evidence of kidney disease, neither GFR category G1 or G2 fulfill the criteria for CKD. eGFR calculation 2020 CKD-EPI creatinine equation, which does not include race as a factor us Heron Abdul MD LAB BLOOD ORDERABLES Final R esult [facility]
[address] [place] [address], * (ABNORMAL) POC Glucose Once (01/28/2025 11:06 PM EDT) Glucose 134(H) 70 - 130 mg/dL 01/28/2025 11:08 PM EDT [facility] Blood 01/28/2025 11:0 6 PM EDT 01/28/2025 11:07 PM EDT us Heron Abdul MD POINT OF CARE TEST ORDERABLE S Final Result [facility]
[address] [place] [address], * POC Glucose Once (01/28/2025 5:47 PM EDT) Glucose 123 70 - 130 mg/dL 01/28/2025 5:51 PM EDT [facility] Blood 01/28/2025 5:47 PM EDT 01/28/2025 5:51 PM EDT us Heron Abdul MD POINT OF CARE TEST ORDERABLE S Final Result [facility]
[address] [place] [address], [place] [phone] * POC Glucose Once (01/28/2025 11:57 AM EDT) Glucose 121 70 - 130 mg/dL 01/28/2025 12:05 PM EDT [facility] Blood 01/28/2025 11:5 7 AM EDT 01/28/2025 12:05 PM EDT us Heron Abdul MD POINT OF CARE TEST ORDERABLE S Final Result [facility]
[address] [place] [address], * (ABNORMAL) CBC Auto Differential (01/28/2025 11:43 AM EDT) [facility] WBC 8.00 3.40 - 10.80 10*3/mm3 01/28/2025 11:54 AM EDT [facility] RBC 4.61 4.14 - 5.80 10*6/mm3 01/28/2025 11:54 AM EDT [facility] Hemoglobin 15.5 13.0 - 17.7 g/dL 01/28/2025 11:54 AM EDT [facility] Hematocrit 46.4 37.5 - 51.0 % 01/28/2025 11:54 AM EDT [facility] MCV 100.7(H) 79.0 - 97.0 fL 01/28/2025 11:54 AM EDT [facility] MCH 33.6(H) 26.6 - 33.0 pg 01/28/2025 11:54 AM EDT [facility] MCHC 33.4 31.5 - 35.7 g/dL 01/28/2025 11:54 AM EDT [facility] RDW 12.8 12.3 - 15.4 % 01/28/2025 11:54 AM EDT [facility] RDW-SD 46.9 37.0 - 54.0 fl 01/28/2025 11:54 AM EDT [facility] MPV 9.6 6.0 - 12.0 fL 01/28/2025 11:54 AM EDT [facility] Platelets 116(L) 140 - 450 10*3/mm3 01/28/2025 11:54 AM EDT [facility] Neutrophil % 74.7 42.7 - 76.0 % 01/28/2025 11:54 AM EDT [facility] Lymphocyte % 14.3(L) 19.6 - 45.3 % 01/28/2025 11:54 AM EDT [facility] Monocyte % 8.5 5.0 - 12.0 % 01/28/2025 11:54 AM EDT [facility] Eosinophil % 1.6 0.3 - 6.2 % 01/28/2025 11:54 AM EDT [facility] Basophil % 0.4 0.0 - 1.5 % 01/28/2025 11:54 AM EDT [facility] Immature Grans % 0.5 0.0 - 0.5 % 01/28/2025 11:54 AM EDT [facility] Neutrophils, Absolute 5.98 1.70 - 7.00 10*3/mm3 01/28/2025 11:54 AM EDT [facility] Lymphocytes, Absolute 1.14 0.70 - 3.10 10*3/mm3 01/28/2025 11:54 AM EDT [facility] Monocytes, Absolute 0.68 0.10 - 0.90 10*3/mm3 01/28/2025 11:54 AM EDT [facility] Eosinophils, Absolute 0.13 0.00 - 0.40 10*3/mm3 01/28/2025 11:54 AM EDT [facility] Basophils, Absolute 0.03 0.00 - 0.20 10*3/mm3 01/28/2025 11:54 AM EDT [facility] Immature Grans, Absolute 0.04 0.00 - 0.05 10*3/mm3 01/28/2025 11:54 AM EDT [facility] nRBC 0.0 0.0 - 0.2 /100 WBC 01/28/2025 11:54 AM EDT [facility] Blood Venipuncture / Unknown 01/28/2025 11:43 AM EDT 01/28/2025 11:49 AM EDT us Heron Abdul MD LAB BLOOD ORDERABLES Final R esult [facility]
[address] [place] [address], * XR Chest 1 View (01/28/2025 5:51 AM EDT) Anatomical Region Laterality Modality Body N/A Radiographic Cristine ging 01/28/2025 5:55 AM EDT Impressions 01/28/2025 5:57 AM EDT 1.Endotracheal tube is at the level of the thor and should be retracted about 2 cm. 2.Bibasilar infiltrates, stable on the left and slightly improved on the right. Small left effusion. Electronically Signed: Tank Vogel MD 01/28/2025 5:57 AM EDT Workstation ID: [id number] Narrative 01/28/2025 5:57 AM EDT XR CHEST 1 VW Date of Exam: 01/28/2025 2:31 AM EDT Indication: Intubated Patient Comparison: 01/27/2025 Findings: Endotracheal tube is at the level of the thor and should be retracted about 2 cm. Heart remains enlarged. Small left pleural effusion is present. There is infiltrate or atelectasis in the bases, stable on the left and slightly improved on the right. No pneumothorax. Procedure Note Tank Vogel MD - 01/28/2025 XR CHEST 1 VW Date of Exam: 01/28/2025 2:31 AM EDT Indication: Intubated Patient Comparison: 01/27/2025 Findings: Endotracheal tube is at the level of the thor and should be retractedabout 2 cm. Heart remains enlarged. Small left pleural effusion ispresent. There is infiltrate or atelectasis in the bases, stable on theleft and slightly improved on the right. No pneumothorax. IMPRESSION: 1.Endotracheal tube is at the level of the thor and should be retractedabout 2 cm. 2.Bibasilar infiltrates, stable on the left and slightly improved on theright. Small left effusion. Electronically Signed: Tank Vogel MD 01/28/2025 5:57 AM EDT Workstation ID: [id number] us Nahun Baca MD IMG DIAGNOSTIC IMAGING ORDERABLES Final Result * (ABNORMAL) POC Glucose Once (01/28/2025 5:05 AM EDT) Glucose 143(H) 70 - 130 mg/dL 01/28/2025 5:32 AM EDT [facility] Blood 01/28/2025 5:05 AM EDT 01/28/2025 5:32 AM EDT Heron Abdul MD POINT OF CARE TEST ORDERABLE S Final Result [facility]
[address] [place] [address], * (ABNORMAL) Comprehensive Metabolic Panel (01/28/2025 4:17 AM EDT) Glucose 124(H) 65 - 99 mg/dL 01/28/2025 8:51 AM EDT [facility] BUN 15.2 8.0 - 23.0 mg/dL 01/28/2025 8:51 AM EDT [facility] Creatinine 0.90 0.76 - 1.27 mg/dL 01/28/2025 8:51 AM EDT [facility] Sodium 144 136 - 145 mmol/L 01/28/2025 8:51 AM EDT [facility] Potassium 4.0 3.5 - 5.2 mmol/L 01/28/2025 8:51 AM EDT [facility] Comment:Slight hemolysis det ected by analyzer. Result may be falsely elevated. Chloride 110(H) 98 - 107 mmol/L 01/28/2025 8:51 AM EDT [facility] CO2 19.0(L) 22.0 - 29.0 mmol/L 01/28/2025 8:51 AM EDT [facility] Calcium 9.3 8.6 - 10.5 mg/dL 01/28/2025 8:51 AM EDT [facility] Total Protein 7.3 6.0 - 8.5 g/dL 01/28/2025 8:51 AM EDT [facility] Albumin 3.9 3.5 - 5.2 g/dL 01/28/2025 8:51 AM EDT [facility] ALT (SGPT) 28 1 - 41 U/L 01/28/2025 8:51 AM EDT [facility] AST (SGOT) 31 1 - 40 U/L 01/28/2025 8:51 AM EDT [facility] Alkaline Phosphatase 86 39 - 117 U/L 01/28/2025 8:51 AM EDT [facility] Total Bilirubin 1.0 0.0 - 1.2 mg/dL 01/28/2025 8:51 AM EDT [facility] Globulin 3.4 gm/dL 01/28/2025 8:51 AM T [facility] Comment:Calculated Result A/G Ratio 1.1 g/dL 01/28/2025 8:51 AM T [facility] BUN/Creatinine Ratio 16.9 7.0 - 25.0 01/28/2025 8:51 AM T [facility] Anion Gap 15.0 5.0 - 15.0 mmol/L 01/28/2025 8:51 AM [facility] eGFR 93.6 >60.0 mL/min/1.7 3 01/28/2025 8:51 AM [facility] Blood Line / Unknown 01/28/2025 4: 17 AM EDT 01/28/2025 4:23 AM EDT [facility] - 01/28/2025 8:51 AM EDT GFR Categories in Chronic Kidney Disease (CKD) GFR Category GFR (mL/min/1.73) Interpretation G1 90 or greater Normal or high (1) G2 60-89 Mild decrease (1) G3a 45-59 Mild to moderate decrease G3b 30-44 Moderate to severe decrease G4 15-29 Severe decrease G5 14 or less Kidney failure (1)In the absence of evidence of kidney disease, neither GFR category G1 or G2 fulfill the criteria for CKD. eGFR calculation 2020 CKD-EPI creatinine equation, which does not include race as a factor us Heron Abdul MD LAB BLOOD ORDERABLES Final R esult [facility]
[address] [place] [address], * (ABNORMAL) C-reactive Protein (01/28/2025 4:17 AM EDT) C-Reactive Protein 4.31(H) 0.00 - 0.50 mg/dL 01/28/2025 4:55 AM EDT [facility] Blood Line / Unknown 01/28/2025 4: 17 AM EDT 01/28/2025 4:23 AM EDT Heron Abdul MD LAB BLOOD ORDERABLES Final R esult Performing Organization Address [facility] [address]/[facility] Co de Phone Number [facility]
[address] [place] [address], * (ABNORMAL) Prealbumin (01/28/2025 4:17 AM EDT) Prealbumin 17.7(L) 20.0 - 40.0 mg/dL 01/28/2025 10:09 AM EDT [facility] Blood Line / Unknown 01/28/2025 4: 17 AM EDT 01/28/2025 4:23 AM EDT Heron Abdul MD LAB BLOOD ORDERABLES Final R esult Performing Organization Address City/[facility] [address]/ZIP Co de Phone Number [facility]
[address] [place] [address], * (ABNORMAL) Magnesium (01/28/2025 4:17 AM EDT) Magnesium 2.6(H) 1.6 - 2.4 mg/dL 01/28/2025 4:55 AM EDT [facility] Blood Line / Unknown 01/28/2025 4: 17 AM EDT 01/28/2025 4:23 AM EDT Heron Abdul MD LAB BLOOD ORDERABLES Final R esult [facility]
[address] [place] [address], * Phosphorus (01/28/2025 4:17 AM EDT) [facility] Phosphorus 4.2 2.5 - 4.5 mg/dL 01/28/2025 4:55 AM EDT [facility] Blood Line / Unknown 01/28/2025 4: 17 AM EDT 01/28/2025 4:23 AM EDT Heron Abdul MD LAB BLOOD ORDERABLES Final R esult Performing Organization Address City/[facility] [address]/[facility] Co de Phone Number [facility]
[address] [place] [address], * (ABNORMAL) Blood Gas, Arterial With Co-Ox (01/28/2025 3:33 AM EDT) [facility] Site Right Radial 01/28/2025 3:34 AM EDT [facility]ER[facility] Michele's Test N/A 01/28/2025 3:34 AM EDT [facility] pH, Arterial 7.430 7.350 - 7.450 pH units 01/28/2025 3:34 AM EDT [facility] pCO2, Arterial 31.7(L) 35.0 - 45.0 mm Hg 01/28/2025 3:34 AM EDT [facility] Comment:84 Value below refer ence range pO2, Arterial 73.6(L) 83.0 - 108.0 mm Hg 01/28/2025 3:34 AM EDT [facility] Comment:84 Value below refer ence range HCO3, Arterial 21.0 20.0 - 26.0 mmol/L 01/28/2025 3:34 [facility] Base Excess, Arterial -2.3(L) 0.0 - 2.0 mmol/L 01/28/2025 3:34 AM [facility] THER[facility] Hemoglobin, Blood Gas 14.8 13.5 - 17.5 g/dL 01/28/2025 3:34 AM [facility] THERAPY Hematocrit, Blood Gas 45.4 38.0 - 51.0 % 01/28/2025 3:34 AM [facility] Oxyhemoglobin 94.3 94 - 99 % 01/28/2025 3:34 AM [facility] Methemoglobin 0.40 0.00 - 1.50 % 01/28/2025 3:34 AM [facility] Carboxyhemoglobin 1.1 0 - 2 % 3:34 AM [facility] CO2 Content 22.0 22 - 33 mmol/L 01/28/2025 3:34 AM [facility] Temperature 37.0 01/28/2025 3:34 AM [facility] Barometric Pressure for Blood Gas 01/28/2025 3:34 AM [facility] Comment:N/A Modality Ventilator 01/28/2025 3:34 AM [facility] FIO2 40 % 01/28/2025 3:34 AM [facility] Ventilator Mode VC+/AC 3:34 AM [facility] Set Tidal Volume 0.46 01/29/20 3:34 AM [facility] Rate 12 Breaths/ minute 01/28/2025 3:34 AM [facility] PEEP 7.0 01/28/2025 3:34 AM [facility] PIP 0 cmH2O 01/28/2025 3:34 AM [facility] Comment:Meter: [id number] 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: [id number] IPAP 0 01/28/2025 3:34 AM EDT [facility] EPAP 0 01/28/2025 3:34 AM EDT [facility] pH, Temp Corrected 7.430 pH Units 2024 3:34 AM EDT [facility] pCO2, Temperature Corrected 31.7(L) 35 - 48 mm Hg 01/28/2025 3:34 AM EDT [facility] pO2, Temperature Corrected 73.6(L) 83 - 108 mm Hg 01/28/2025 3:34 AM EDT [facility] Arterial Blood 01/28/2025 3: 33 AM EDT 01/28/2025 3:34 AM EDT Heron Abdul MD LAB BLOOD ORDERABLES Final R esult Performing Organization Address City/[facility] [address]/[facility] [place] Co de Phone Number [facility]
[address] [place] [address], * POC Glucose Once (01/27/2025 11:04 PM EDT) [facility] Glucose 116 70 - 130 mg/dL 01/27/2025 11:06 PM EDT [facility] Blood 01/27/2025 11:0 4 PM EDT 01/27/2025 11:06 PM EDT Heron Abdul MD POINT OF CARE TEST ORDERABLE S Final Result Performing Organization Address City/[facility] [address]/[facility] Co de Phone Number [facility]
[address] [place] [address], * (ABNORMAL) Blood Gas, Arterial With Co-Ox (01/27/2025 5:44 PM EDT) Site Right Radial 01/27/2025 5:46 PM EDT [facility] Michele's Test N/A 01/27/2025 5:46 PM EDT [facility] pH, Arterial 7.459(H) 7.350 - 7.450 pH units 01/27/2025 5:46 PM EDT [facility] Comment:83 Value above refer ence range pCO2, Arterial 32.0(L) 35.0 - 45.0 mm Hg 01/27/2025 5:46 PM EDT [facility] Comment:84 Value below refer ence range pO2, Arterial 120.0(H) 83.0 - 108.0 mm Hg 01/27/2025 5:46 PM EDT [facility] Comment:83 Value above refer ence range HCO3, Arterial 22.7 20.0 - 26.0 mmol/L 01/27/2025 5:46 PM EDT [facility] Base Excess, Arterial -0.3(L) 0.0 - 2.0 mmol/L 01/27/2025 5:46 PM EDT [facility] Hemoglobin, Blood Gas 14.7 13.5 - 17.5 g/dL 01/27/2025 5:46 PM EDT [facility] Hematocrit, Blood Gas 45.0 38.0 - 51.0 % 01/27/2025 5:46 PM EDT [facility] Oxyhemoglobin 97.5 94 - 99 % 01/27/2025 5:46 PM EDT [facility] Methemoglobin 0.60 0.00 - 1.50 % 01/27/2025 5:46 PM EDT [facility] Carboxyhemoglobin 0.8 0 - 2 % 025 5:46 PM EDT [facility] CO2 Content 23.7 22 - 33 mmol/L 01/27/2025 5:46 PM EDT [facility] Temperature 37.0 01/27/2025 5:46 PM EDT [facility] Barometric Pressure for Blood Gas 01/27/2025 5:46 PM EDT [facility] Comment:N/A Modality Ventilator 01/27/2025 5:46 PM EDT [facility] FIO2 60 % 01/27/2025 5:46 PM EDT [facility] Ventilator Mode VC+/AC 5:46 PM EDT [facility] Set Tidal Volume 460 01/28/20 5:46 PM EDT [facility] Set Mech Resp Rate 12 2024 5:46 PM EDT [facility] Rate 18 Breaths/ minute 01/27/2025 5:46 PM EDT [facility] Comment:Meter: [id number] 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: [id number] PEEP 7.0 01/27/2025 5:46 PM EDT [facility] pH, Temp Corrected 7.459 pH Units 2024 5:46 PM EDT [facility] pCO2, Temperature Corrected 32.0(L) 35 - 48 mm Hg 01/27/2025 5:46 PM EDT [facility] pO2, Temperature Corrected 120(H) 83 - 108 mm Hg 01/27/2025 5:46 PM EDT [facility] Arterial Blood 01/27/2025 5: 44 PM EDT 01/27/2025 5:45 PM EDT Heron Abdul MD LAB BLOOD ORDERABLES Final R esult Performing Organization Address City/[facility] [address]/ZIP Co de Phone Number [facility]
[address] * POC Glucose Once (01/27/2025 5:29 PM EDT) Glucose 125 70 - 130 mg/dL 01/27/2025 5:30 PM EDT [facility] Blood 01/27/2025 5:29 PM EDT 01/27/2025 5:30 PM EDT Heron Abdul MD POINT OF CARE TEST ORDERABLE S Final Result Performing Organization Address City/[facility] [address]/ZIP Co de Phone Number [facility]
[address] [place] [address], [place] [phone] * (ABNORMAL) POC Glucose Once (01/27/2025 11:58 AM EDT) Glucose 131(H) 70 - 130 mg/dL 01/27/2025 11:59 AM EDT [facility] Blood 01/27/2025 11:5 8 AM EDT 01/27/2025 11:59 AM EDT Heron Abdul MD POINT OF CARE TEST ORDERABLE S Final Result [facility]
[address] [place] [address], * CT Chest Without Contrast Diagnostic (01/27/2025 10:35 AM EDT) Anatomical Region Laterality Modality Chest N/A Computed Tomogra phy 01/27/2025 10:4 5 AM EDT Impressions 01/28/2025 11:02 AM EDT Impression: 1. Near resolution of right lung atelectasis since 01/26/2025 exam. No evidence of underlying mass or evidence to suggest residual right lung pneumonia. 2. Moderate patchy interstitial and airspace opacity of the posterior left lower lobe, whether atelectasis, or focal pneumonia. Please correlate with symptoms. 3. Liver and spleen morphology suggestive of cirrhosis again noted. Electronically Signed: Mario Bejarano MD 01/28/2025 11:02 AM EDT Workstation ID: [id number] Narrative 01/28/2025 11:[address] CHEST WO CONTRAST DIAGNOSTIC Date of Exam: 01/27/2025 10:08 AM EDT Indication: pneumonia, ? right upper lobe mass. Comparison: CTA chest 01/26/2025 Technique: Axial CT images were obtained of the chest without contrast administration. Reconstructed coronal and sagittal images were also obtained. Automated exposure control and iterative construction methods were used. Findings: Prior CTA report described multifocal consolidation and linear airspace disease, greater in the right upper lung than elsewhere. Today's study shows ET tube just above the thor in satisfactory position. The dense right upper lobe and posterior right lower lobe consolidation seen on the prior study has practically resolved. There is minimal remaining dependent atelectasis in the right lower lobe and minor groundglass changes, probably exaggerated by respiratory motion artifact. On the left, there is increased patchy opacity in the posterior lower lobe, images 62 through 72, whether atelectasis or developing left lower lobe pneumonia. Left upper lobe is essentially clear. There is no pleural effusion. Images of the mediastinum show no evidence of pericardial effusion or mediastinal adenopathy. There is a suggestion of aortic valve calcification and minimal coronary artery calcification. Images of the upper abdomen show fatty liver change, and splenomegaly, again with lobular contour of the splenic capsule suspicious for cirrhosis. No evidence of ascites. Dense material in the dependent portion of the gallbladder is likely vicarious excretion of contrast from previous CTA. Bony structures appear to be intact. Procedure Note Mario Bejarano MD - 01/28/2025 CT CHEST WO CONTRAST DIAGNOSTIC Date of Exam: 01/27/2025 10:08 AM EDT Indication: pneumonia, ? right upper lobe mass. Comparison: CTA chest 01/26/2025 Technique: Axial CT images were obtained of the chest without contrastadministration. Reconstructed coronal and sagittal images were alsoobtained. Automated exposure control and iterative construction methodswere used. Findings: Prior CTA report described multifocal consolidation and linear airspacedisease, greater in the right upper lung than elsewhere. Today's study shows ET tube just above the thor in satisfactoryposition. The dense right upper lobe and posterior right lower lobeconsolidation seen on the prior study has practically resolved. There isminimal remaining dependent atelectasis in the right lower lobe and minor groundglass changes, probably exaggerated byrespiratory motion artifact. On the left, there is increased patchy opacity in the posterior lowerlobe, images 62 through 72, whether atelectasis or developing left lowerlobe pneumonia. Left upper lobe is essentially clear. There is no pleural effusion. Images of the mediastinum show no evidenceof pericardial effusion or mediastinal adenopathy. There is a suggestionof aortic valve calcification and minimal coronary artery calcification. Images of the upper abdomen show fatty liver change, and splenomegaly,again with lobular contour of the splenic capsule suspicious forcirrhosis. No evidence of ascites. Dense material in the dependent portionof the gallbladder is likely vicarious excretion of contrast from previous CTA. Bony structures appear to be intact. IMPRESSION: Impression: 1. Near resolution of right lung atelectasis since 01/26/2025 exam. Noevidence of underlying mass or evidence to suggest residual right lungpneumonia. 2. Moderate patchy interstitial and airspace opacity of the posterior leftlower lobe, whether atelectasis, or focal pneumonia. Please correlate withsymptoms. 3. Liver and spleen morphology suggestive of cirrhosis again noted. Electronically Signed: Mario Bejarano MD 01/28/2025 11:02 AM EDT Workstation ID: [id number] Julia Connors PA-C IMG CT ORDERABLES Final Result * XR Chest 1 View (01/27/2025 5:36 AM EDT) Anatomical Region Laterality Modality Body N/A Radiographic Cristine ging 01/27/2025 6:24 AM EDT Impressions 01/27/2025 6:25 AM EDT Improved aeration of both upper lobes. Persistent bibasilar atelectasis. Electronically Signed: Tank Vogel MD 01/27/2025 6:25 AM EDT Workstation ID: [id number] Narrative 01/27/2025 6:25 AM EDT XR CHEST 1 VW Date of Exam: 01/27/2025 12:09 AM EDT Indication: Respiratory failure. Comparison: 01/26/2025 Findings: Endotracheal tube is in good position in the mid trachea. Heart size is stable. There is some mild atelectasis in the bases. No pneumothorax. There is improved aeration of both upper lobes. Procedure Note Tank Vogel MD - 01/27/2025 XR CHEST 1 VW Date of Exam: 01/27/2025 12:09 AM EDT Indication: Respiratory failure. Comparison: 01/26/2025 Findings: Endotracheal tube is in good position in the mid trachea. Heart size isstable. There is some mild atelectasis in the bases. No pneumothorax.There is improved aeration of both upper lobes. IMPRESSION: Improved aeration of both upper lobes. Persistent bibasilar atelectasis. Electronically Signed: Tank Vogel MD 01/27/2025 6:25 AM EDT Workstation ID: [id number] Nahun Baca MD IMG DIAGNOSTIC IMAGING ORDERABLES Final Result * POC Glucose Once (01/27/2025 5:29 AM EDT) [facility] Glucose 125 70 - 130 mg/dL 01/27/2025 5:31 AM EDT [facility] Blood 01/27/2025 5:29 AM EDT 01/27/2025 5:31 AM EDT Nahun Baca MD POINT OF CARE TEST ORD ERABLES Final Result [facility]
[address] [place] [address], * (ABNORMAL) Blood Gas, Arterial With Co-Ox (01/27/2025 3:29 AM EDT) [facility] Site Right Radial 01/27/2025 3:29 AM EDT [facility] Michele's Test Positive 01/27/2025 3:29 AM EDT [facility] pH, Arterial 7.435 7.350 - 7.450 pH units 01/27/2025 3:29 AM EDT [facility] pCO2, Arterial 34.7(L) 35.0 - 45.0 mm Hg 01/27/2025 3:29 AM EDT [facility] Comment:84 Value below refer ence range pO2, Arterial 66.2(L) 83.0 - 108.0 mm Hg 01/27/2025 3:29 AM EDT [facility] Comment:84 Value below refer ence range HCO3, Arterial 23.3 20.0 - 26.0 mmol/L 01/27/2025 3:29 AM EDT [facility] Base Excess, Arterial -0.4(L) 0.0 - 2.0 mmol/L 01/27/2025 3:29 AM EDT [facility] Hemoglobin, Blood Gas 14.2 13.5 - 17.5 g/dL 01/27/2025 3:29 AM T [facility] Hematocrit, Blood Gas 43.4 38.0 - 51.0 % 01/27/2025 3:29 AM EDT [facility] Oxyhemoglobin 92.6(L) 94 - 99 % 01/27/2025 3:29 AM T [facility] Comment:84 Value below refer ence range Methemoglobin 0.70 0.00 - 1.50 % 01/27/2025 3:29 AM T [facility] Carboxyhemoglobin 1.0 0 - 2 % 025 3:29 AM [facility] CO2 Content 24.4 22 - 33 mmol/L 01/27/2025 3:29 AM [facility] Temperature 37.0 01/27/2025 3:29 AM [facility] Barometric Pressure for Blood Gas 01/27/2025 3:29 AM [facility] Comment:N/A Modality Ventilator 01/27/2025 3:29 AM [facility] FIO2 40 % 01/27/2025 3:29 AM [facility] Ventilator Mode VC+/AC 3:29 AM [facility] Set Tidal Volume 0.54 01/28/20 3:29 AM [facility] Rate 16 Breaths/ minute 01/27/2025 3:29 AM [facility] PEEP 5.0 01/27/2025 3:29 AM [facility] PIP 0 cmH2O 01/27/2025 3:29 AM [facility] Comment:Meter: [id number] 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: [id number] IPAP 0 01/27/2025 3:29 AM EDT [facility] EPAP 0 01/27/2025 3:29 AM EDT [facility] pH, Temp Corrected 7.435 pH Units 2024 3:29 AM EDT [facility] pCO2, Temperature Corrected 34.7(L) 35 - 48 mm Hg 01/27/2025 3:29 AM EDT [facility] pO2, Temperature Corrected 66.2(L) 83 - 108 mm Hg 01/27/2025 3:29 AM EDT [facility] Arterial Blood 01/27/2025 3: 29 AM EDT 01/27/2025 3:29 AM EDT us Nahun Baca MD LAB BLOOD ORDERABLES F inal Result [facility]
[address] [place] [address], * (ABNORMAL) CBC Auto Differential (01/27/2025 3:12 AM EDT) WBC 7.36 3.40 - 10.80 10*3/mm3 01/27/2025 3:36 AM EDT [facility] RBC 4.25 4.14 - 5.80 10*6/mm3 01/27/2025 3:36 AM EDT [facility] Hemoglobin 14.2 13.0 - 17.7 g/dL 01/27/2025 3:36 AM EDT [facility] Hematocrit 42.7 37.5 - 51.0 % 01/27/2025 3:36 AM EDT [facility] MCV 100.5(H) 79.0 - 97.0 fL 01/27/2025 3:36 AM EDT [facility] MCH 33.4(H) 26.6 - 33.0 pg 01/27/2025 3:36 AM EDT [facility] MCHC 33.3 31.5 - 35.7 g/dL 01/27/2025 3:36 AM [facility] RDW 13.1 12.3 - 15.4 % 01/27/2025 3:36 AM [facility] RDW-SD 48.4 37.0 - 54.0 fl 01/27/2025 3:36 AM [facility] MPV 9.3 6.0 - 12.0 fL 01/27/2025 3:36 AM [facility] Platelets 121(L) 140 - 450 10*3/mm3 01/27/2025 3:36 AM [facility] Neutrophil % 68.0 42.7 - 76.0 % 01/27/2025 3:36 AM [facility] Lymphocyte % 19.4(L) 19.6 - 45.3 % 01/27/2025 3:36 AM [facility] Monocyte % 8.2 5.0 - 12.0 % 01/27/2025 3:36 AM [facility] Eosinophil % 3.8 0.3 - 6.2 % 01/27/2025 3:36 AM [facility] Basophil % 0.3 0.0 - 1.5 % 01/27/2025 3:36 AM [facility] Immature Grans % 0.3 0.0 - 0.5 % 01/27/2025 3:36 AM [facility] Neutrophils, Absolute 5.01 1.70 - 7.00 10*3/mm3 01/27/2025 3:36 AM [facility] Lymphocytes, Absolute 1.43 0.70 - 3.10 10*3/mm3 01/27/2025 3:36 AM [facility] Monocytes, Absolute 0.60 0.10 - 0.90 10*3/mm3 01/27/2025 3:36 AM [facility] Eosinophils, Absolute 0.28 0.00 - 0.40 10*3/mm3 01/27/2025 3:36 AM [facility] Basophils, Absolute 0.02 0.00 - 0.20 10*3/mm3 01/27/2025 3:36 AM EDT [facility] Immature Grans, Absolute 0.02 0.00 - 0.05 10*3/mm3 01/27/2025 3:36 AM EDT [facility] nRBC 0.0 0.0 - 0.2 /100 WBC 01/27/2025 3:36 AM EDT [facility] Blood Venipuncture / Unknown 01/27/2025 3:12 AM EDT 01/27/2025 3:32 AM EDT us Nahun Baca MD LAB BLOOD ORDERABLES F inal Result [facility]
[address] [place] [address], * Lipid Panel (01/27/2025 3:12 AM EDT) Total Cholesterol 137 0 - 200 mg/dL 01/27/2025 4:02 AM EDT [facility] Triglycerides 104 0 - 150 mg/dL 01/27/2025 4:02 AM EDT [facility] HDL Cholesterol 49 40 - 60 mg/dL 01/27/2025 4:02 AM EDT [facility] LDL Cholesterol 69 0 - 100 mg/dL 01/27/2025 4:02 AM EDT [facility] VLDL Cholesterol 19 5 - 40 mg/dL 01/27/2025 4:02 AM EDT [facility] LDL/HDL Ratio 1.37 01/27/2025 4:02 AM EDT [facility] Blood Venipuncture / Unknown 01/27/2025 3:12 AM EDT 01/27/2025 3:33 AM EDT Narrative [facility] - 01/27/2025 4:02 AM EDT Cholesterol Reference Ranges (U.S. Department of Health and Human Services ATP III Classifications) Desirable <200 mg/dL Borderline High 200-239 mg/dL High Risk >240 mg/dL Triglyceride Reference Ranges (U.S. Department of Health and Human Services ATP III Classifications) Normal <150 mg/dL Borderline High 150-199 mg/dL High 200-499 mg/dL Very High >500 mg/dL HDL Reference Ranges (U.S. Department of Health and Human Services ATP III Classifications) Low <40 mg/dl (major risk factor for CHD) High >60 mg/dl ('negative' risk factor for CHD) LDL Reference Ranges (U.S. Department of Health and Human Services ATP III Classifications) Optimal <100 mg/dL Near Optimal 100-129 mg/dL Borderline High 130-159 mg/dL High 160-189 mg/dL Very High >189 mg/dL LDL is calculated using the NIH LDL-C calculation. us Diana Garcia REFRIGERATING ENGINEER LAB BLOOD ORDERABLES Roxanna l Result Performing Organization Address [facility] [address]/[facility] Co de Phone Number [facility]
[address] [place] [address], * Hemoglobin A1c (01/27/2025 3:12 AM EDT) Hemoglobin A1C 5.51 4.80 - 5.60 % 01/27/2025 4:23 AM EDT [facility] Blood Venipuncture / Unknown 01/27/2025 3:12 AM EDT 01/27/2025 3:32 AM EDT Narrative [facility] - 01/27/2025 4:23 AM EDT Hemoglobin A1C Ranges: Increased Risk for Diabetes 5.7% to 6.4% Diabetes >= 6.5% Diabetic Goal < 7.0% us Diana Garcia REFRIGERATING ENGINEER LAB BLOOD ORDERABLES Roxanna l Result Performing Organization Address City/[facility] [address]/ZIP Co de Phone Number [facility]
[address] [place] [address], * Phosphorus (01/27/2025 3:12 AM EDT) Phosphorus 3.6 2.5 - 4.5 mg/dL 01/27/2025 4:01 AM EDT [facility] Blood Venipuncture / Unknown 01/27/2025 3:12 AM EDT 01/27/2025 3:33 AM EDT Nahun Baca MD LAB BLOOD ORDERABLES F inal Result Performing Organization Address City/[facility] [address]/ZIP Co de Phone Number [facility]
[address] [place] [address], [place] [phone] * Magnesium (01/27/2025 3:12 AM EDT) Magnesium 2.1 1.6 - 2.4 mg/dL 01/27/2025 4:02 AM EDT [facility] Blood Venipuncture / Unknown 01/27/2025 3:12 AM EDT 01/27/2025 3:33 AM EDT Nahun Baca MD LAB BLOOD ORDERABLES F inal Result Performing Organization Address City/[facility] [address]/ZIP Co de Phone Number [facility]
[address] [place] [address], * (ABNORMAL) Comprehensive Metabolic Panel (01/27/2025 3:12 AM EDT) Glucose 121(H) 65 - 99 mg/dL 01/27/2025 4:02 AM EDT [facility] BUN 14.8 8.0 - 23.0 mg/dL 01/27/2025 4:02 AM EDT [facility] Creatinine 0.87 0.76 - 1.27 mg/dL 01/27/2025 4:02 AM EDT [facility] Sodium 138 136 - 145 mmol/L 01/27/2025 4:02 AM EDT [facility] Potassium 3.9 3.5 - 5.2 mmol/L 01/27/2025 4:02 AM EDT [facility] Chloride 105 98 - 107 mmol/L 01/27/2025 4:02 AM [facility] CO2 21.0(L) 22.0 - 29.0 mmol/L 01/27/2025 4:02 AM [facility] Calcium 9.4 8.6 - 10.5 mg/dL 01/27/2025 4:02 AM [facility] Total Protein 7.0 6.0 - 8.5 g/dL 01/27/2025 4:02 AM [facility] Albumin 3.6 3.5 - 5.2 g/dL 01/27/2025 4:02 AM [facility] ALT (SGPT) 33 1 - 41 U/L 01/27/2025 4:02 AM [facility] AST (SGOT) 34 1 - 40 U/L 01/27/2025 4:02 AM [facility] Alkaline Phosphatase 81 39 - 117 U/L 01/27/2025 4:02 AM [facility] Total Bilirubin 0.8 0.0 - 1.2 mg/dL 01/27/2025 4:02 AM [facility] Globulin 3.4 gm/dL 01/27/2025 4:02 AM [facility] Comment:Calculated Result A/G Ratio 1.1 g/dL 01/27/2025 4:02 AM [facility] BUN/Creatinine Ratio 17.0 7.0 - 25.0 01/27/2025 4:02 AM [facility] Anion Gap 12.0 5.0 - 15.0 mmol/L 01/27/2025 4:02 AM [facility] eGFR 94.6 >60.0 mL/min/1.7 3 01/27/2025 4:02 AM [facility] Blood Venipuncture / Unknown 01/27/2025 3:12 AM EDT 01/27/2025 3:33 AM [facility] - 01/27/2025 4:02 AM EDT GFR Categories in Chronic Kidney Disease (CKD) GFR Category GFR (mL/min/1.73) Interpretation G1 90 or greater Normal or high (1) G2 60-89 Mild decrease (1) G3a 45-59 Mild to moderate decrease G3b 30-44 Moderate to severe decrease G4 15-29 Severe decrease G5 14 or less Kidney failure (1)In the absence of evidence of kidney disease, neither GFR category G1 or G2 fulfill the criteria for CKD. eGFR calculation 2020 CKD-EPI creatinine equation, which does not include race as a factor Nahun Baca MD LAB BLOOD ORDERABLES F inal Result Performing Organization Address City/[facility] [address]/ZIP Co de Phone Number [facility]
[address] [place] [address], * POC Glucose Once (01/26/2025 11:39 PM EDT) [facility] Signature Glucose 128 70 - 130 mg/dL 01/26/2025 11:45 PM EDT [facility] Blood 01/26/2025 11:3 9 PM EDT 01/26/2025 11:45 PM EDT us Nahun Baca MD POINT OF CARE TEST ORD ERABLES Final Result Performing Organization Address [facility] [address]/[facility] Co de Phone Number [facility]
[address] [place] [address], [place] [phone] * MRI Brain Without Contrast (01/26/2025 11:17 PM EDT) Anatomical Region Laterality Modality Head, Neck N/A Magnetic Resonan ce 01/27/2025 1:21 AM EDT Impressions 01/27/2025 1:30 AM EDT 1.No evidence of acute or subacute infarct. No acute hemorrhage. 2.Atrophy and chronic small vessel ischemic disease noted. 3.Chronic mucosal thickening in the sinuses with fluid levels in the sphenoid and maxillary sinuses that could reflect mild acute disease. Electronically Signed: Tank Vogel MD 01/27/2025 1:30 AM EDT Workstation ID: [id number] [facility] 01/27/2025 1:30 AM EDT MRI BRAIN WO CONTRAST Date of Exam: 01/26/2025 10:45 PM EDT Indication: Stroke, follow up stroke rule out, unresponsive. Comparison: CT head 01/26/2025 Technique: Routine multiplanar/multisequence sequence images of the brain were obtained without contrast administration. Findings: Diffusion images reveal no acute or subacute infarct. There is mild generalized atrophy. Ventricular size and configuration are within normal limits. T2 hyperintense changes in the periventricular and subcortical white matter bilaterally are most compatible with chronic small vessel ischemic disease. Similar changes are present in the kaden. No acute hemorrhage is identified. Craniocervical junction is normal. Pituitary unremarkable. No masses are seen. The major intracranial flow voids are maintained. There is some mucosal thickening in the paranasal sinuses, and fluid levels in the sphenoid sinuses and maxillary sinuses could reflect acute sinusitis. Procedure Note Tank Vogel MD - 01/27/2025 MRI BRAIN WO CONTRAST Date of Exam: 01/26/2025 10:45 PM EDT Indication: Stroke, follow up stroke rule out, unresponsive. Comparison: CT head 01/26/2025 Technique: Routine multiplanar/multisequence sequence images of the brainwere obtained without contrast administration. Findings: Diffusion images reveal no acute or subacute infarct. There is mildgeneralized atrophy. Ventricular size and configuration are within normallimits. T2 hyperintense changes in the periventricular and subcorticalwhite matter bilaterally are most compatible with chronic small vessel ischemic disease. Similar changes arepresent in the kaden. No acute hemorrhage is identified. Craniocervicaljunction is normal. Pituitary unremarkable. No masses are seen. The majorintracranial flow voids are maintained. There is some mucosal thickening in the paranasal sinuses, andfluid levels in the sphenoid sinuses and maxillary sinuses could reflectacute sinusitis. IMPRESSION: 1.No evidence of acute or subacute infarct. No acute hemorrhage. 2.Atrophy and chronic small vessel ischemic disease noted. 3.Chronic mucosal thickening in the sinuses with fluid levels in thesphenoid and maxillary sinuses that could reflect mild acute disease. Electronically Signed: Tank Vogel MD 01/27/2025 1:30 AM EDT Workstation ID: [id number] Diana Garcia REFRIGERATING ENGINEER IMG MRI ORDERABLES Final Result * Cortisol (01/26/2025 8:58 PM EDT) Pathologist [facility] Cortisol 6.77 mcg/dL 01/26/2025 9:34 PM EDT [facility] Blood Venipuncture / Unknown 01/26/2025 8:58 PM EDT 01/26/2025 9:05 PM EDT Narrative [facility] - 01/26/2025 9:34 PM EDT Cortisol Reference Ranges: Cortisol 6AM - 10AM Range: 6.02-18.40 mcg/dl Cortisol 4PM - 8PM Range: 2.68-10.50 mcg/dl Results may be falsely increased if patient taking Biotin. Heron Abdul MD LAB BLOOD ORDERABLES Final R esult [facility]
[address] [place] [address], * ECHO COMPLETE W/ DOPPLER, COLOR FLOW AND CONTRAST (01/26/2025 5:55 PM EDT) Pathologist [facility] EF(MOD-bp) 79.5 % LVIDd 3.4 cm LVIDs 1.88 cm IVSd 1.26 cm LVPWd 1.27 cm FS 44.0 % IVS/LVPW 0.99 cm ESV(cubed) 6.6 ml LV Sys Vol (BSA corrected) 8.3 cm2 EDV(cubed) 37.8 ml LV Banuelos Vol (BSA corrected) 47.4 cm2 LV mass(C)d 139.1 grams LVOT area 3.5 cm2 LVOT diam 2.11 cm EDV(MOD-sp2) 117.0 ml EDV(MOD-sp4) 125.0 ml ESV(MOD-sp2) 29.1 ml ESV(MOD-sp4) 21.9 ml SV(MOD-sp2) 87.9 ml SV(MOD-sp4) 103.1 ml SVi(MOD-SP2) 33.4 ml/m2 SVi(MOD-SP4) 39.1 ml/m2 SVi (LVOT) 35.8 ml/m2 EF(MOD-sp2) 75.1 % EF(MOD-sp4) 82.5 % MV E max melinda 61.7 cm/sec MV A max melinda 69.4 cm/sec MV dec time 0.27 sec MV E/A 0.89 IVRT 106.0 ms LA ESV Index (BP) 20.9 ml/m2 Med Peak E' Melinda 7.7 cm/sec Lat Peak E' Melinda 11.3 cm/sec Avg E/e' ratio 6.49 SV(LVOT) 94.3 ml RV Base 3.4 cm RV Mid 2.8 cm RV Length 8.4 cm TAPSE (>1.6) 2.8 cm RV S' 13.3 cm/sec LA dimension (2D) 3.8 cm LV V1 max 126.8 cm/sec LV V1 max PG 6.4 mmHg LV V1 mean PG 3.4 mmHg LV V1 VTI 26.9 cm Ao pk melinda 156.7 cm/sec Ao max PG 9.8 mmHg Ao mean PG 5.1 mmHg Ao V2 VTI 30.8 cm SIMIN(I,D) 3.1 cm2 Dimensionless Index 0.87 (DI) MV max PG 2.28 mmHg MV mean PG 1.28 mmHg MV V2 VTI 26.0 cm MV P1/2t 84.6 msec MVA(P1/2t) 2.6 cm2 MVA(VTI) 3.6 cm2 MV dec slope 268.9 cm/sec2 PA V2 max 118.9 cm/sec PA acc time 0.12 sec Ao root diam 3.0 cm Ascending aorta 2.9 cm BH CV VAS BP RIGHT ARM 132/75 mmHg Echo EF Estimated 65.0 % Anatomical Region Laterality Modality Ultrasound Narrative 01/27/2025 7:13 AM EDT Technically difficult/limited study. Left ventricular systolic function is normal. Estimated left ventricular EF = 65% Left ventricular wall thickness is consistent with mild concentric hypertrophy. Left ventricular diastolic function was normal. Aortic sclerosis without significant stenosis or regurgitation. Trace mitral regurgitation. Saline test results are negative. Left Ventricle Left ventricular systolic function is normal. Estimated left ventricular EF = 65% Normal left ventricular cavity size noted. Left ventricular wall thickness is consistent with mild concentric hypertrophy. All left ventricular wall segments contract normally. Left ventricular diastolic function was normal. Right Ventricle Normal right ventricular cavity size and systolic function noted. Left Atrium Normal left atrial size and volume noted. Saline test results are negative. Right Atrium Normal right atrial cavity size noted. The inferior vena cava is dilated. The diameter of the inferior vena cava is 2.2 cm. IVC inspiratory collapse unobtainable; patient on a vent. Mitral Valve Mitral annular calcification is present. There is calcification of the mitral valve. Trace mitral valve regurgitation is present. No significant mitral valve stenosis is present. Tricuspid Valve Tricuspid valve not well visualized. No significant tricuspid valve regurgitation or significant stenosis present. The tricuspid valve is grossly normal in structure. Aortic Valve No aortic valve regurgitation or stenosis is present. The aortic valve is abnormal in structure. The aortic valve exhibits sclerosis. There is calcification of the aortic valve. The aortic valve was poorly visualized but appears trileaflet. Pulmonic Valve The pulmonic valve is not well visualized. The pulmonic valve is grossly normal in structure. No pulmonic valve regurgitation or significant stenosis is present. Pericardium The pericardium is normal. There is no evidence of pericardial effusion. . Greater Vessels No dilation of the aortic root is present. No dilation of the sinuses of Valsalva is present. No dilation of the ascending aorta is present. Study Quality The study is technically difficult for diagnosis. The quality of the study is limited due to patient body habitus. Enhancement Agent Details Verbal consent was obtained from the patient to use Lumason image enhancer in order to optimize the study. The use of Lumason was indicated to improve delineation of the left ventricular endocardial border. 5 mL of Lumason was manually activated. A total of 2 mL of the activated Lumason was administered and the remaining contrast was wasted and discarded. No adverse reaction to image enhancer was noted. Diana C Jose FREYN CV ECHO ORDERABLES Final Result * ED INTUBATION (01/26/2025 5:27 PM EDT) Narrative Daniel Ocampo MD - 01/26/2025 5:27 PM EDT Daniel Ocampo MD 01/26/2025 5:33 PM Intubation Date/Time: 01/26/2025 5:27 PM Performed by: Daniel Ocampo MD Authorized by: Daniel Ocampo MD Consent: Consent obtained: Emergent situation Pre-procedure details: Indications: airway protection and altered consciousness Patient status: Unresponsive Look externally: no concerns Hyoid-thyroid distance: 2 or more finger widths Obstruction: none Pharmacologic strategy: RSI Induction agents: Etomidate Paralytics: Rocuronium Procedure details: Preoxygenation: Bag valve mask CPR in progress: no Number of attempts: 2 Successful intubation attempt details: Intubation method: Oral Intubation technique: video assisted Laryngoscope blade: Mac 4 Bougie used: no Grade view: II Tube size (mm): 7.5 Tube type: Cuffed Tube visualized through cords: yes First unsuccessful intubation attempt details: Intubation method: Oral Intubation technique: Video assisted Laryngoscope blade: Mac 4 Bougie used: no Grade view: II Tube size (mm): 7.5 Tube type: Cuffed Ventilation between 1st and 2nd attempt: yes with extraglottic device Tube visualized through cords: yes Placement assessment: ETT at teeth/gumline (cm): 22 Tube secured with: Adhesive tape and ETT wilkins Breath sounds: Equal Placement verification: chest rise, colorimetric ETCO2, CXR verification, direct visualization, equal breath sounds and tube exhalation CXR findings: Appropriate position Post-procedure details: Procedure completion: Tolerated well, no immediate complications Daniel Ocampo MD PROCEDURE/MINOR SURGICAL O RDERABLES Final Result * OH CRITICAL CARE ILL/INJURED PATIENT INIT 30-74 MIN (01/26/2025 5:25 PM EDT) Narrative Daniel Ocampo MD - 01/26/2025 5:25 PM EDT Daniel Ocampo MD 01/26/2025 5:33 PM Critical Care Performed by: Daniel Ocampo MD Authorized by: Daniel Ocampo MD Critical care provider statement: Critical care time (minutes): 41 Critical care was necessary to treat or prevent imminent or life-threatening deterioration of the following conditions: WAREHOUSE PROCESSOR 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 or 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 Critical care was time spent personally by me on the following activities: Development of treatment plan with patient or surrogate, discussions with consultants, evaluation of patient's response to treatment, examination of patient, obtaining history from patient or surrogate, ordering and performing treatments and interventions, ordering and review of laboratory studies, ordering and review of radiographic studies, pulse oximetry, re-evaluation of patient's condition and review of old charts Daniel Ocampo MD PROCEDURE/MINOR SURGICAL O RDERABLES Final Result * POC Glucose Once (01/26/2025 4:39 PM EDT) Glucose 98 70 - 130 mg/dL 01/26/2025 4:41 PM EDT [facility] Blood 01/26/2025 4:39 PM EDT 01/26/2025 4:41 PM EDT Nahun Baca MD POINT OF CARE TEST ORD ERABLES Final Result Performing Organization Address [facility] [address]/[facility] [place] Co de Phone Number [facility]
[address] [place] [address], * EEG AWAKE OR DROWSY PORTABLE (01/26/2025 3:42 PM EDT) Impressions NEUROLOGY - 01/26/2025 4:25 PM EDT Diffuse cerebral dysfunction of mild degree, most commonly seen due to toxic/metabolic or hypoxemic cause No evidence for epilepsy is seen This report is transcribed using the [employer] dictation system. Narrative NEUROLOGY - 01/26/2025 4:25 PM EDT Reason for referral: 69 y.o.male with altered mental status Technical Summary: A 19 channel digital EEG was performed using the international 10-20 placement system, including eye leads and EKG leads. Duration: 24 minutes Findings: The patient is intubated and on versed 8 mg/hr. The background shows diffuse medium amplitude 6-7 hz theta present over both hemispheres. No lateralizing features or epileptiform activity are seen. Photic stimulation yields a symmetric driving response. HVN is not performed. NO electrographic seizures are seen. Video: available Technical quality: good Rhythm strip: regular, 60 bpm SUMMARY: Mild generalized slow No epileptiform activity is present Diana Garcia REFRIGERATING ENGINEER NEUROLOGY ORDERABLES Roxanna l Result NEUROLOGY * (ABNORMAL) Blood Gas, Arterial With Co-Ox (01/26/2025 3:17 PM EDT) Site Right Radial 01/26/2025 12:36 PM EDT [facility] THERAPY Michele's Test N/A 01/26/2025 12:36 PM EDT [facility] THERAP[facility] pH, Arterial 7.385 7.350 - 7.450 pH units 01/26/2025 12:36 PM EDT [facility] pCO2, Arterial 42.1 35.0 - 45.0 mm Hg 01/26/2025 12:36 PM EDT [facility] pO2, Arterial 318.0(H) 83.0 - 108.0 mm Hg 01/26/2025 12:36 PM EDT [facility] Comment:83 Value above refer ence range HCO3, Arterial 25.2 20.0 - 26.0 mmol/L 01/26/2025 12:36 PM EDT [facility] Base Excess, Arterial 0.0 0.0 - 2.0 mmol/L 01/26/2025 12:36 PM EDT [facility] Hemoglobin, Blood Gas 15.0 13.5 - 17.5 g/dL 01/26/2025 12:36 PM EDT [facility] Hematocrit, Blood Gas 46.0 38.0 - 51.0 % 01/26/2025 12:36 PM EDT [facility] Oxyhemoglobin 99.0 94 - 99 % 01/26/2025 12:36 PM EDT [facility] Methemoglobin 0.30 0.00 - 1.50 % 01/26/2025 12:36 PM EDT [facility] Carboxyhemoglobin 1.1 0 - 2 % 025 12:36 PM EDT [facility] CO2 Content 26.5 22 - 33 mmol/L 01/26/2025 12:36 PM EDT [facility] Temperature 37.0 01/26/2025 12:36 PM EDT [facility] Barometric Pressure for Blood Gas 01/26/2025 12:36 PM EDT [facility] Comment:N/A Modality Ventilator 01/26/2025 12:36 PM EDT [facility] FIO2 100 % 01/26/2025 12:36 PM EDT [facility] Ventilator Mode VC+/AC 12:36 PM EDT [facility] Set Tidal Volume 0.49 01/27/20 12:36 PM EDT [facility] Rate 16 Breaths/ minute 01/26/2025 12:36 PM EDT [facility] Comment:Meter: [id number] 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: [id number] PEEP 8.0 01/26/2025 12:36 PM EDT [facility] pH, Temp Corrected 7.385 pH Units 2024 12:36 PM EDT [facility] pCO2, Temperature Corrected 42.1 35 - 48 mm Hg 01/26/2025 12:36 PM EDT [facility] pO2, Temperature Corrected 318(H) 83 - 108 mm Hg 01/26/2025 12:36 PM EDT [facility] Arterial Blood 01/26/2025 3: 17 PM EDT 01/26/2025 3:17 PM EDT us Nahun Baca MD LAB BLOOD ORDERABLES F inal Result [facility]
[address] [place] [address], * (ABNORMAL) Urinalysis, Microscopic Only - Indwelling Urethral Catheter (01/26/2025 1:53 PM EDT) RBC, UA 3-5(A) None Seen, 0-2 /HPF 01/26/2025 2:28 PM EDT [facility] WBC, UA 3-5(A) None Seen, 0-2 /HPF 01/26/2025 2:28 PM EDT [facility] Comment:Urine culture not in dicated. Bacteria, UA None Seen None Seen /HPF 01/26/2025 2:28 PM EDT [facility] Squamous Epithelial Cells, UA 0-2 None Seen, 0-2 /HPF 01/26/2025 2:28 PM EDT [facility] Hyaline Casts, UA 0-2 None Seen /LPF 01/26/2025 2:28 PM EDT [facility] Methodology Automated Microscopy 01/26/2025 2:28 PM EDT [facility] Urine (Indwelling Urethral Catheter) Collection / Unknown 01/26/2025 1:53 PM EDT 01/26/2025 2:15 PM EDT Daniel Ocampo MD URINE ORDERABLES Final Res ult Performing Organization Address [facility] [address]/[facility] [place] Co de Phone Number [facility]
[address] [phone] * Fentanyl, Urine - Indwelling Urethral Catheter (01/26/2025 1:53 PM EDT) Fentanyl, Urine Negative Negative 01/26/2025 3:27 PM EDT [facility] Urine (Indwelling Urethral Catheter) Collection / Unknown 01/26/2025 1:53 PM EDT 01/26/2025 2:15 PM EDT Narrative [facility] - 01/26/2025 3:27 PM EDT Negative Threshold: Fentanyl 5 ng/mL The normal value for the drug tested is negative. This report includes final unconfirmed screening results to be used for medical treatment purposes only. Unconfirmed results must not be used for non-medical purposes such as employment or legal testing. Clinical consideration should be applied to any drug of abuse test, particularly when unconfirmed results are used. Daniel Ocampo MD URINE ORDERABLES Final Res ult Performing Organization Address City/[facility] [address]/ZIP Co de Phone Number [facility]
[address] [place] [address], * High Sensitivity Troponin T 1Hr (01/26/2025 1:53 PM EDT) [facility] HS Troponin T 11 <22 ng/L 01/26/2025 2:30 PM EDT [facility] Troponin T Numeric Delta 0 Abnormal if >/=3 ng/L 01/26/2025 2:30 PM EDT [facility] Blood Line / Unknown 01/26/2025 1: 53 PM EDT 01/26/2025 1:59 PM EDT Narrative [facility] - 01/26/2025 2:30 PM EDT High Sensitive Troponin T Reference Range: <14.0 ng/L- Negative Female for AMI <22.0 ng/L- Negative Male for AMI >=14 - Abnormal Female indicating possible myocardial injury. >=22 - Abnormal Male indicating possible myocardial injury. Clinicians would have to utilize clinical acumen, EKG, Troponin, and serial changes to determine if it is an Acute Myocardial Infarction or myocardial injury due to an underlying chronic condition. Daniel Ocampo MD LAB BLOOD ORDERABLES Final Result [facility]
[address] [place] [address], * Urine Drug Screen - Indwelling Urethral Catheter (01/26/2025 1:53 PM EDT) [facility] THC, Screen, Urine Negative Negative 2024 2:30 PM EDT [facility] Phencyclidine (PCP), Urine Negative Negative 01/26/2025 2:30 PM EDT [facility] Cocaine Screen, Urine Negative Negative 01/26/2025 2:30 PM EDT [facility] Methamphetamine, Ur Negative Negative 01/26 2:30 PM EDT [facility] Opiate Screen Negative Negative 01/26/2025 2:30 PM EDT [facility] Amphetamine Screen, Urine Negative Negative 01/26/2025 2:30 PM EDT [facility] Benzodiazepine Screen, Urine Negative Negative 01/26/2025 2:30 PM EDT [facility] Tricyclic Antidepressants Screen Negative Negative 01/26/2025 2:30 PM EDT [facility] Methadone Screen, Urine Negative Negative 01/26/2025 2:30 PM EDT [facility] Barbiturates Screen, Urine Negative Negative 01/26/2025 2:30 PM EDT [facility] Oxycodone Screen, Urine Negative Negative 01/26/2025 2:30 PM EDT [facility] Buprenorphine, Screen, Urine Negative Negative 01/26/2025 2:30 PM EDT [facility] Urine (Indwelling Urethral Catheter) Collection / Unknown 01/26/2025 1:53 PM EDT 01/26/2025 2:15 PM EDT [facility] - 01/26/2025 2:30 PM EDT Cutoff For Drugs Screened: Amphetamines 500 ng/ml Barbiturates 200 ng/ml Benzodiazepines 150 ng/ml Cocaine 150 ng/ml Methadone 200 ng/ml Opiates 100 ng/ml Phencyclidine 25 ng/ml THC 50 ng/ml Methamphetamine 500 ng/ml Tricyclic Antidepressants 300 ng/ml Oxycodone 100 ng/ml Buprenorphine 10 ng/ml The normal value for all drugs tested is negative. This report includes unconfirmed screening results, with the cutoff values listed, to be used for medical treatment purposes only. Unconfirmed results must not be used for non-medical purposes such as employment or legal testing. Clinical consideration should be applied to any drug of abuse test, particularly when unconfirmed results are used. us Daniel Ocampo MD URINE ORDERABLES Final Res ult [facility]
[address] [place] [address], * (ABNORMAL) Urinalysis With Culture If Indicated - Indwelling Urethral Catheter (01/26/2025 1:53 PM EDT) Color, UA Yellow Yellow, Straw 01/26/2025 2:28 PM EDT [facility] Appearance, UA Clear Clear 01/26/2025 2:28 PM EDT [facility] pH, UA 6.0 5.0 - 8.0 01/26/2025 2:28 PM EDT [facility] Specific [place], UA >1.030(H) 1.005 - 1.030 01/26/2025 2:28 PM EDT [facility] Glucose, UA >=1000 mg/dL (3+)(A) Negative 01/26/2025 2:28 PM EDT [facility] Ketones, UA Negative Negative 01/26/2025 2:28 PM EDT [facility] Bilirubin, UA Negative Negative 01/26/2025 2:28 PM EDT [facility] Blood, UA Trace(A) Negative 01/26/2025 2:28 PM EDT [facility] Protein, UA Trace(A) Negative 01/26/2025 2:28 PM EDT [facility] Leuk Esterase, UA Negative Negative 01/26/2025 2:28 PM EDT [facility] Nitrite, UA Negative Negative 01/26/2025 2:28 PM EDT [facility] Urobilinogen, UA 0.2 E.U./dL 0.2 - 1.0 E.U./dL 01/26/2025 2:28 PM EDT [facility] Urine (Indwelling Urethral Catheter) Collection / Unknown 01/26/2025 1:53 PM EDT 01/26/2025 2:15 PM EDT [facility] - 01/26/2025 2:28 PM EDT In absence of clinical symptoms, the presence of pyuria, bacteria, and/or nitrites on the urinalysis result does not correlate with infection. us Daniel Ocampo MD URINE ORDERABLES Final Res ult [facility]
[address] [id number], * CT Angiogram Neck (01/26/2025 1:45 PM EDT) Anatomical Region Laterality Modality Neck, Vascular N/A Computed Tomogra phy 01/26/2025 1:48 PM EDT Impressions 01/26/2025 1:57 PM EDT Impression: Normal cerebral perfusion without evidence of core infarct or ischemic tissue at risk. No abrupt cut off/large vessel occlusion, flow-limiting stenosis, dissection, or aneurysm in the head or neck. Consolidation of the right upper lobe. CTA chest exam for complete details. Please refer to dedicated Electronically Signed: Ramin Dow MD 01/26/2025 1:57 PM EDT Workstation ID: [id number] Narrative 01/26/2025 1:[address] CEREBRAL PERFUSION W WO CONTRAST, CT ANGIOGRAM NECK, CT ANGIOGRAM HEAD W AI ANALYSIS OF LVO Date of Exam: 01/26/2025 1:11 PM EDT Indication: unresponsive. Comparison: Concurrent noncontrast head CT Technique: Axial CT images of the brain were obtained prior to and after the administration of 115 mL Isovue-370. Core blood volume, core blood flow, mean transit time, and Tmax images were obtained utilizing the Rapid software protocol. A limited CT angiogram of the head was also performed to measure the blood vessel density. CTA of the head and neck was performed after the uneventful intravenous administration of above contrast. Reconstructed coronal and sagittal images were also obtained. In addition, a 3-D volume rendered image was created for interpretation. Automated exposure control and iterative reconstruction methods were used. The radiation dose reduction device was turned on for each scan per the ALARA (As Low as Reasonably Achievable) protocol. Findings: CT cerebral perfusion: Normal, symmetric cerebral perfusion without evidence of core infarct or ischemic tissue at risk. CTA head and neck: No abrupt cut off/large vessel occlusion, flow-limiting stenosis, dissection, or aneurysm in the head or neck. The cerebral veins and dural venous sinuses appear grossly patent. There is mild atherosclerosis at the carotid bifurcations without flow-limiting or significant stenosis. Extravascular findings: Consolidation of the right upper lobe. Endotracheal tube terminates in the distal trachea. Normal thyroid. There is paranasal sinus disease. The patient is edentulous. No acute or suspicious bony findings. Procedure Note Ramin Dow MD - 01/26/2025 CT CEREBRAL PERFUSION W WO CONTRAST, CT ANGIOGRAM NECK, CT ANGIOGRAM HEADW AI ANALYSIS OF LVO Date of Exam: 01/26/2025 1:11 PM EDT Indication: unresponsive. Comparison: Concurrent noncontrast head CT Technique: Axial CT images of the brain were obtained prior to and afterthe administration of 115 mL Isovue-370. Core blood volume, core bloodflow, mean transit time, and Tmax images were obtained utilizing the [employer] protocol. A limited CT angiogram of the head was also performed to measure the blood vesseldensity. CTA of the head and neck was performed after the uneventful intravenousadministration of above contrast. Reconstructed coronal and sagittalimages were also obtained. In addition, a 3-D volume rendered image wascreated for interpretation. Automated exposure control and iterative reconstruction methods were used. The radiation dose reduction device was turned on for each scan per theALARA (As Low as Reasonably Achievable) protocol. Findings: CT cerebral perfusion: Normal, symmetric cerebral perfusion without evidence of core infarct orischemic tissue at risk. CTA head and neck: No abrupt cut off/large vessel occlusion, flow-limiting stenosis,dissection, or aneurysm in the head or neck. The cerebral veins and duralvenous sinuses appear grossly patent. There is mild atherosclerosis at thecarotid bifurcations without flow-limiting or significant stenosis. Extravascular findings: Consolidation of the right upper lobe. Endotracheal tube terminates in thedistal trachea. Normal thyroid. There is paranasal sinus disease. Thepatient is edentulous. No acute or suspicious bony findings. IMPRESSION: Impression: Normal cerebral perfusion without evidence of core infarct or ischemictissue at risk. No abrupt cut off/large vessel occlusion, flow-limiting stenosis,dissection, or aneurysm in the head or neck. Consolidation of the right upper lobe. CTA chest exam for completedetails. Please refer to dedicated Electronically Signed: Ramin Dow MD 01/26/2025 1:57 PM EDT Workstation ID: [id number] Diana Garcia APRN IMG CT ORDERABLES Final R esult * CT CEREBRAL PERFUSION WITH & WITHOUT CONTRAST (01/26/2025 1:45 PM EDT) Anatomical Region Laterality Modality Head N/A Computed Tomogra phy 01/26/2025 1:48 PM EDT Impressions 01/26/2025 1:57 PM EDT Impression: Normal cerebral perfusion without evidence of core infarct or ischemic tissue at risk. No abrupt cut off/large vessel occlusion, flow-limiting stenosis, dissection, or aneurysm in the head or neck. Consolidation of the right upper lobe. CTA chest exam for complete details. Please refer to dedicated Electronically Signed: Ramin Dow MD 01/26/2025 1:57 PM EDT Workstation ID: [id number] Narrative 01/26/2025 1:[address] CEREBRAL PERFUSION W WO CONTRAST, CT ANGIOGRAM NECK, CT ANGIOGRAM HEAD W AI ANALYSIS OF LVO Date of Exam: 01/26/2025 1:11 PM EDT Indication: unresponsive. Comparison: Concurrent noncontrast head CT Technique: Axial CT images of the brain were obtained prior to and after the administration of 115 mL Isovue-370. Core blood volume, core blood flow, mean transit time, and Tmax images were obtained utilizing the Rapid software protocol. A limited CT angiogram of the head was also performed to measure the blood vessel density. CTA of the head and neck was performed after the uneventful intravenous administration of above contrast. Reconstructed coronal and sagittal images were also obtained. In addition, a 3-D volume rendered image was created for interpretation. Automated exposure control and iterative reconstruction methods were used. The radiation dose reduction device was turned on for each scan per the ALARA (As Low as Reasonably Achievable) protocol. Findings: CT cerebral perfusion: Normal, symmetric cerebral perfusion without evidence of core infarct or ischemic tissue at risk. CTA head and neck: No abrupt cut off/large vessel occlusion, flow-limiting stenosis, dissection, or aneurysm in the head or neck. The cerebral veins and dural venous sinuses appear grossly patent. There is mild atherosclerosis at the carotid bifurcations without flow-limiting or significant stenosis. Extravascular findings: Consolidation of the right upper lobe. Endotracheal tube terminates in the distal trachea. Normal thyroid. There is paranasal sinus disease. The patient is edentulous. No acute or suspicious bony findings. Procedure Note Ramin Dow MD - 01/26/2025 CT CEREBRAL PERFUSION W WO CONTRAST, CT ANGIOGRAM NECK, CT ANGIOGRAM HEADW AI ANALYSIS OF LVO Date of Exam: 01/26/2025 1:11 PM EDT Indication: unresponsive. Comparison: Concurrent noncontrast head CT Technique: Axial CT images of the brain were obtained prior to and afterthe administration of 115 mL Isovue-370. Core blood volume, core bloodflow, mean transit time, and Tmax images were obtained utilizing the Rapidsoftware protocol. A limited CT angiogram of the head was also performed to measure the blood vesseldensity. CTA of the head and neck was performed after the uneventful intravenousadministration of above contrast. Reconstructed coronal and sagittalimages were also obtained. In addition, a 3-D volume rendered image wascreated for interpretation. Automated exposure control and iterative reconstruction methods were used. The radiation dose reduction device was turned on for each scan per theALARA (As Low as Reasonably Achievable) protocol. Findings: CT cerebral perfusion: Normal, symmetric cerebral perfusion without evidence of core infarct orischemic tissue at risk. CTA head and neck: No abrupt cut off/large vessel occlusion, flow-limiting stenosis,dissection, or aneurysm in the head or neck. The cerebral veins and duralvenous sinuses appear grossly patent. There is mild atherosclerosis at thecarotid bifurcations without flow-limiting or significant stenosis. Extravascular findings: Consolidation of the right upper lobe. Endotracheal tube terminates in thedistal trachea. Normal thyroid. There is paranasal sinus disease. Thepatient is edentulous. No acute or suspicious bony findings. IMPRESSION: Impression: Normal cerebral perfusion without evidence of core infarct or ischemictissue at risk. No abrupt cut off/large vessel occlusion, flow-limiting stenosis,dissection, or aneurysm in the head or neck. Consolidation of the right upper lobe. CTA chest exam for completedetails. Please refer to dedicated Electronically Signed: Ramin Dow MD 01/26/2025 1:57 PM EDT Workstation ID: [id number] Diana Garcia REFRIGERATING ENGINEER IMG CT ORDERABLES Final R esult * CT Angiogram Head w AI Analysis of LVO (01/26/2025 1:45 PM EDT) Anatomical Region Laterality Modality Head, Vascular N/A Computed Tomogra phy 01/26/2025 1:48 PM EDT Impressions 01/26/2025 1:57 PM EDT Impression: Normal cerebral perfusion without evidence of core infarct or ischemic tissue at risk. No abrupt cut off/large vessel occlusion, flow-limiting stenosis, dissection, or aneurysm in the head or neck. Consolidation of the right upper lobe. CTA chest exam for complete details. Please refer to dedicated Electronically Signed: Ramin Dow MD 01/26/2025 1:57 PM EDT Workstation ID: [id number] Narrative 01/26/2025 1:[address] CEREBRAL PERFUSION W WO CONTRAST, CT ANGIOGRAM NECK, CT ANGIOGRAM HEAD W AI ANALYSIS OF LVO Date of Exam: 01/26/2025 1:11 PM EDT Indication: unresponsive. Comparison: Concurrent noncontrast head CT Technique: Axial CT images of the brain were obtained prior to and after the administration of 115 mL Isovue-370. Core blood volume, core blood flow, mean transit time, and Tmax images were obtained utilizing the Rapid software protocol. A limited CT angiogram of the head was also performed to measure the blood vessel density. CTA of the head and neck was performed after the uneventful intravenous administration of above contrast. Reconstructed coronal and sagittal images were also obtained. In addition, a 3-D volume rendered image was created for interpretation. Automated exposure control and iterative reconstruction methods were used. The radiation dose reduction device was turned on for each scan per the ALARA (As Low as Reasonably Achievable) protocol. Findings: CT cerebral perfusion: Normal, symmetric cerebral perfusion without evidence of core infarct or ischemic tissue at risk. CTA head and neck: No abrupt cut off/large vessel occlusion, flow-limiting stenosis, dissection, or aneurysm in the head or neck. The cerebral veins and dural venous sinuses appear grossly patent. There is mild atherosclerosis at the carotid bifurcations without flow-limiting or significant stenosis. Extravascular findings: Consolidation of the right upper lobe. Endotracheal tube terminates in the distal trachea. Normal thyroid. There is paranasal sinus disease. The patient is edentulous. No acute or suspicious bony findings. Procedure Note Ramin Dow MD - 01/26/2025 CT CEREBRAL PERFUSION W WO CONTRAST, CT ANGIOGRAM NECK, CT ANGIOGRAM HEADW AI ANALYSIS OF LVO Date of Exam: 01/26/2025 1:11 PM EDT Indication: unresponsive. Comparison: Concurrent noncontrast head CT Technique: Axial CT images of the brain were obtained prior to and afterthe administration of 115 mL Isovue-370. Core blood volume, core bloodflow, mean transit time, and Tmax images were obtained utilizing the Rapidsoftware protocol. A limited CT angiogram of the head was also performed to measure the blood vesseldensity. CTA of the head and neck was performed after the uneventful intravenousadministration of above contrast. Reconstructed coronal and sagittalimages were also obtained. In addition, a 3-D volume rendered image wascreated for interpretation. Automated exposure control and iterative reconstruction methods were used. The radiation dose reduction device was turned on for each scan per theALARA (As Low as Reasonably Achievable) protocol. Findings: CT cerebral perfusion: Normal, symmetric cerebral perfusion without evidence of core infarct orischemic tissue at risk. CTA head and neck: No abrupt cut off/large vessel occlusion, flow-limiting stenosis,dissection, or aneurysm in the head or neck. The cerebral veins and duralvenous sinuses appear grossly patent. There is mild atherosclerosis at thecarotid bifurcations without flow-limiting or significant stenosis. Extravascular findings: Consolidation of the right upper lobe. Endotracheal tube terminates in thedistal trachea. Normal thyroid. There is paranasal sinus disease. Thepatient is edentulous. No acute or suspicious bony findings. IMPRESSION: Impression: Normal cerebral perfusion without evidence of core infarct or ischemictissue at risk. No abrupt cut off/large vessel occlusion, flow-limiting stenosis,dissection, or aneurysm in the head or neck. Consolidation of the right upper lobe. CTA chest exam for completedetails. Please refer to dedicated Electronically Signed: Ramin Dow MD 01/26/2025 1:57 PM EDT Workstation ID: [id number] Diana Garcia REFRIGERATING ENGINEER IMG CT ORDERABLES Final R esult * CT Abdomen Pelvis With Contrast (01/26/2025 1:38 PM EDT) Anatomical Region Laterality Modality Abdomen, Pelvis N/A Computed Tomogra phy 01/26/2025 1:44 PM EDT Impressions 01/26/2025 2:17 PM EDT Impression: Chest: - Within the confines of artifact, no convincing evidence of pulmonary embolism. - Multifocal consolidative and linear airspace disease, most pronounced within the right upper lung where there is also areas of groundglass attenuation, suspected to be a combination of pneumonia and atelectasis. - Endotracheal tube in place. Abdomen/pelvis: - Within the confines of artifact, no acute findings. - Morphologic changes of cirrhosis without ascites. - Additional chronic/ancillary findings as above. Electronically Signed: Cj Melendrez MD 01/26/2025 2:17 PM EDT Workstation ID: [id number] Narrative 01/26/2025 2:[address] ABDOMEN PELVIS W CONTRAST, CT ANGIOGRAM CHEST PULMONARY EMBOLISM Date of Exam: 01/26/2025 1:00 PM EDT Indication: ams. Comparison: None available. Technique: CTA of the chest and CT of the abdomen and pelvis were performed after the uneventful intravenous administration of 100 mL Isovue-370. Reconstructed coronal and sagittal images were also obtained. In addition, a 3-D volume rendered image was created for interpretation. Automated exposure control and iterative reconstruction methods were used. Findings: Motion artifact as well as artifact related to patient's arms at sides. CHEST Within the confines of artifact, no distinct pulmonary arterial filling defect to suggest pulmonary embolism. Normal caliber thoracic aorta. Heart appears mildly enlarged. No pericardial effusion. No mediastinal mass. No pathologically enlarged lymph nodes. No chest wall abnormality. No acute or suspicious osseous lesion. Endotracheal tube tip terminates around 1.5 cm above the thor. Multifocal consolidative and linear airspace disease, some of which is enhancing, likely combination of pneumonia and atelectasis, most pronounced within the right upper lung where there is also areas of groundglass attenuation. No pleural effusion. No pneumothorax. ABDOMEN/PELVIS Morphologic changes of cirrhosis with nodular/lobulated contour of the liver. Gallbladder is unremarkable. No biliary ductal dilatation. No findings of acute pancreatitis. Spleen is at upper limits of normal size. No adrenal nodule. Kidneys are symmetric in size and enhancement without hydronephrosis. Urinary bladder and pelvic reproductive organs are unremarkable. No bowel obstruction. No free air. No free fluid or organized fluid collection. No pathologically enlarged lymph nodes. No abdominal aortic aneurysm. Mild atherosclerosis. Postsurgical changes of ventral hernia repair. Severe degenerative changes of the left hip. No acute or suspicious osseous abnormality. Procedure Note Cj Melendrez MD - 01/26/2025 CT ABDOMEN PELVIS W CONTRAST, CT ANGIOGRAM CHEST PULMONARY EMBOLISM Date of Exam: 01/26/2025 1:00 PM EDT Indication: ams. Comparison: None available. Technique: CTA of the chest and CT of the abdomen and pelvis wereperformed after the uneventful intravenous administration of 100 mLIsovue-370. Reconstructed coronal and sagittal images were also obtained.In addition, a 3-D volume rendered image was created for interpretation. Automated exposure control and iterativereconstruction methods were used. Findings: Motion artifact as well as artifact related to patient's arms at sides. CHEST Within the confines of artifact, no distinct pulmonary arterial fillingdefect to suggest pulmonary embolism. Normal caliber thoracic aorta. Heartappears mildly enlarged. No pericardial effusion. No mediastinal mass. Nopathologically enlarged lymph nodes. No chest wall abnormality. No acute or suspicious osseous lesion. Endotracheal tube tip terminates around 1.5 cm above the thor.Multifocal consolidative and linear airspace disease, some of which isenhancing, likely combination of pneumonia and atelectasis, mostpronounced within the right upper lung where there is also areas of groundglass attenuation. No pleural effusion. Nopneumothorax. ABDOMEN/PELVIS Morphologic changes of cirrhosis with nodular/lobulated contour of theliver. Gallbladder is unremarkable. No biliary ductal dilatation. Nofindings of acute pancreatitis. Spleen is at upper limits of normalsize. No adrenal nodule. Kidneys are symmetric in size and enhancement withouthydronephrosis. Urinary bladder and pelvic reproductive organs areunremarkable. No bowel obstruction. No free air. No free fluid ororganized fluid collection. No pathologically enlarged lymph nodes. No abdominal aortic aneurysm. Mildatherosclerosis. Postsurgical changes of ventral hernia repair. Severedegenerative changes of the left hip. No acute or suspicious osseousabnormality. IMPRESSION: Impression: Chest: - Within the confines of artifact, no convincing evidence of pulmonaryembolism. - Multifocal consolidative and linear airspace disease, most pronouncedwithin the right upper lung where there is also areas of groundglassattenuation, suspected to be a combination of pneumonia and atelectasis. - Endotracheal tube in place. Abdomen/pelvis: - Within the confines of artifact, no acute findings. - Morphologic changes of cirrhosis without ascites. - Additional chronic/ancillary findings as above. Electronically Signed: Cj Melendrez MD 01/26/2025 2:17 PM EDT Workstation ID: [id number] Daniel Ocampo MD IMG CT ORDERABLES Final Re sult * CT Angiogram Chest Pulmonary Embolism (01/26/2025 1:38 PM EDT) Anatomical Region Laterality Modality Chest N/A Computed Tomogra phy 01/26/2025 1:44 PM EDT Impressions 01/26/2025 2:17 PM EDT Impression: Chest: - Within the confines of artifact, no convincing evidence of pulmonary embolism. - Multifocal consolidative and linear airspace disease, most pronounced within the right upper lung where there is also areas of groundglass attenuation, suspected to be a combination of pneumonia and atelectasis. - Endotracheal tube in place. Abdomen/pelvis: - Within the confines of artifact, no acute findings. - Morphologic changes of cirrhosis without ascites. - Additional chronic/ancillary findings as above. Electronically Signed: Cj Melendrez MD 01/26/2025 2:17 PM EDT Workstation ID: [id number] Narrative 01/26/2025 2:[address] ABDOMEN PELVIS W CONTRAST, CT ANGIOGRAM CHEST PULMONARY EMBOLISM Date of Exam: 01/26/2025 1:00 PM EDT Indication: ams. Comparison: None available. Technique: CTA of the chest and CT of the abdomen and pelvis were performed after the uneventful intravenous administration of 100 mL Isovue-370. Reconstructed coronal and sagittal images were also obtained. In addition, a 3-D volume rendered image was created for interpretation. Automated exposure control and iterative reconstruction methods were used. Findings: Motion artifact as well as artifact related to patient's arms at sides. CHEST Within the confines of artifact, no distinct pulmonary arterial filling defect to suggest pulmonary embolism. Normal caliber thoracic aorta. Heart appears mildly enlarged. No pericardial effusion. No mediastinal mass. No pathologically enlarged lymph nodes. No chest wall abnormality. No acute or suspicious osseous lesion. Endotracheal tube tip terminates around 1.5 cm above the thor. Multifocal consolidative and linear airspace disease, some of which is enhancing, likely combination of pneumonia and atelectasis, most pronounced within the right upper lung where there is also areas of groundglass attenuation. No pleural effusion. No pneumothorax. ABDOMEN/PELVIS Morphologic changes of cirrhosis with nodular/lobulated contour of the liver. Gallbladder is unremarkable. No biliary ductal dilatation. No findings of acute pancreatitis. Spleen is at upper limits of normal size. No adrenal nodule. Kidneys are symmetric in size and enhancement without hydronephrosis. Urinary bladder and pelvic reproductive organs are unremarkable. No bowel obstruction. No free air. No free fluid or organized fluid collection. No pathologically enlarged lymph nodes. No abdominal aortic aneurysm. Mild atherosclerosis. Postsurgical changes of ventral hernia repair. Severe degenerative changes of the left hip. No acute or suspicious osseous abnormality. Procedure Note Cj Melendrez MD - 01/26/2025 CT ABDOMEN PELVIS W CONTRAST, CT ANGIOGRAM CHEST PULMONARY EMBOLISM Date of Exam: 01/26/2025 1:00 PM EDT Indication: ams. Comparison: None available. Technique: CTA of the chest and CT of the abdomen and pelvis wereperformed after the uneventful intravenous administration of 100 mLIsovue-370. Reconstructed coronal and sagittal images were also obtained.In addition, a 3-D volume rendered image was created for interpretation. Automated exposure control and iterativereconstruction methods were used. Findings: Motion artifact as well as artifact related to patient's arms at sides. CHEST Within the confines of artifact, no distinct pulmonary arterial fillingdefect to suggest pulmonary embolism. Normal caliber thoracic aorta. Heartappears mildly enlarged. No pericardial effusion. No mediastinal mass. Nopathologically enlarged lymph nodes. No chest wall abnormality. No acute or suspicious osseous lesion. Endotracheal tube tip terminates around 1.5 cm above the thor.Multifocal consolidative and linear airspace disease, some of which isenhancing, likely combination of pneumonia and atelectasis, mostpronounced within the right upper lung where there is also areas of groundglass attenuation. No pleural effusion. Nopneumothorax. ABDOMEN/PELVIS Morphologic changes of cirrhosis with nodular/lobulated contour of theliver. Gallbladder is unremarkable. No biliary ductal dilatation. Nofindings of acute pancreatitis. Spleen is at upper limits of normalsize. No adrenal nodule. Kidneys are symmetric in size and enhancement withouthydronephrosis. Urinary bladder and pelvic reproductive organs areunremarkable. No bowel obstruction. No free air. No free fluid ororganized fluid collection. No pathologically enlarged lymph nodes. No abdominal aortic aneurysm. Mildatherosclerosis. Postsurgical changes of ventral hernia repair. Severedegenerative changes of the left hip. No acute or suspicious osseousabnormality. IMPRESSION: Impression: Chest: - Within the confines of artifact, no convincing evidence of pulmonaryembolism. - Multifocal consolidative and linear airspace disease, most pronouncedwithin the right upper lung where there is also areas of groundglassattenuation, suspected to be a combination of pneumonia and atelectasis. - Endotracheal tube in place. Abdomen/pelvis: - Within the confines of artifact, no acute findings. - Morphologic changes of cirrhosis without ascites. - Additional chronic/ancillary findings as above. Electronically Signed: Cj Melendrez MD 01/26/2025 2:17 PM EDT Workstation ID: [id number] Daniel Ocampo MD IMG CT ORDERABLES Final Re sult * CT Head Without Contrast (01/26/2025 12:59 PM EDT) Anatomical Region Laterality Modality Head N/A Computed Tomogra phy 01/26/2025 1:06 PM EDT Impressions 01/26/2025 1:08 PM EDT Impression: 1.No acute intracranial abnormality identified. 2.Mild involutional changes. 3.Small air-fluid levels in the bilateral maxillary and ethmoid sinuses. Endotracheal tube is seen. Electronically Signed: Alexandru Campuzano MD 01/26/2025 1:08 PM EDT Workstation ID: [id number] Narrative 01/26/2025 1:[address] HEAD WO CONTRAST Date of Exam: 01/26/2025 12:59 PM EDT Indication: ams. Comparison: None available. Technique: Axial CT images were obtained of the head without contrast administration. Automated exposure control and iterative construction methods were used. Findings: Motion artifact limits the exam There is no evidence of hemorrhage. There is no mass effect or midline shift. Mild involutional changes. There is no extracerebral collection. Ventricles are normal in size and configuration for patient's stated age. Posterior fossa is within normal limits. Calvarium and skull base appear intact. Small air-fluid levels in the bilateral maxillary and ethmoid sinuses. The mastoids are well-aerated. Visualized orbits are unremarkable. Endotracheal tube is seen Procedure Note Alexandru Campuzano MD - 01/26/2025 CT HEAD WO CONTRAST Date of Exam: 01/26/2025 12:59 PM EDT Indication: ams. Comparison: None available. Technique: Axial CT images were obtained of the head without contrastadministration. Automated exposure control and iterative constructionmethods were used. Findings: Motion artifact limits the exam There is no evidence of hemorrhage. There is no mass effect or midlineshift. Mild involutional changes. There is no extracerebral collection. Ventricles are normal in size and configuration for patient's stated age. Posterior fossa is within normal limits. Calvarium and skull base appear intact. Small air-fluid levels in thebilateral maxillary and ethmoid sinuses. The mastoids are well-aerated.Visualized orbits are unremarkable. Endotracheal tube is seen IMPRESSION: Impression: 1.No acute intracranial abnormality identified. 2.Mild involutional changes. 3.Small air-fluid levels in the bilateral maxillary and ethmoid sinuses.Endotracheal tube is seen. Electronically Signed: Alexandru Campuzano MD 01/26/2025 1:08 PM EDT Workstation ID: [id number] Daniel Ocampo MD IMG CT ORDERABLES Final Re sult * Telemetry Scan (01/26/2025 12:18 PM EDT) [facility] ECG ORDERABLES Final Result * ECG 12 Lead Altered Mental Status (01/26/2025 12:15 PM EDT) QT Interval 416 ms ECG QTC Interval 432 ms ECG 01/26/2025 12:1 5 PM EDT 01/26/2025 4:34 PM EDT Narrative ECG - 01/26/2025 4:34 PM EDT Test Reason : Altered Mental Status Blood Pressure : */* mmHG Vent. Rate : 65 BPM Atrial Rate : 65 BPM P-R Int : 206 ms QRS Dur : 106 ms QT Int : 416 ms P-R-T Axes : 54 39 29 degrees QTcB Int : 432 ms Normal sinus rhythm Normal ECG No previous ECGs available Confirmed by MD Ocampo Michael ([id number]) on 01/26/2025 4:34:38 PM Referred By: pallavi Confirmed By: Rafita Ocampo MD Procedure Note Daniel Ocampo MD - 01/26/2025 Test Reason : Altered Mental Status Blood Pressure : */* mmHG Vent. Rate : 65 BPM Atrial Rate : 65 BPM P-R Int : 206 ms QRS Dur : 106 ms QT Int : 416 ms P-R-T Axes : 54 39 29 degrees QTcB Int : 432 ms Normal sinus rhythm Normal ECG No previous ECGs available Confirmed by MD Ocampo Michael ([id number]) on 01/26/2025 4:34:38 PM Referred By: pallavi Confirmed By: Rafita Ocampo MD Daneil Ocampo MD ECG ORDERABLES Final Resu lt ECG * XR Chest 1 View (01/26/2025 12:08 PM EDT) Anatomical Region Laterality Modality Body N/A Radiographic Cristine ging 01/26/2025 12:2 9 PM EDT Impressions 01/26/2025 12:31 PM EDT Impression: Endotracheal tube tip is 1.5 cm above the thor. Electronically Signed: Cj Melendrez MD 01/26/2025 12:31 PM EDT Workstation ID: [id number] Narrative 01/26/2025 12:31 PM EDT XR CHEST 1 VW Date of Exam: 01/26/2025 11:38 AM EDT Indication: Weak/Dizzy/AMS triage protocol Comparison: None available. Findings: Endotracheal tube tip is 1.5 cm above the thor. Borderline enlarged cardiomediastinal silhouette. Scattered subsegmental atelectasis/scarring. No lobar consolidation. No pleural effusion. No pneumothorax. Osseous structures are typical in appearance for age. Procedure Note Cj Melendrez MD - 01/26/2025 XR CHEST 1 VW Date of Exam: 01/26/2025 11:38 AM EDT Indication: Weak/Dizzy/AMS triage protocol Comparison: None available. Findings: Endotracheal tube tip is 1.5 cm above the thor. Borderline enlargedcardiomediastinal silhouette. Scattered subsegmental atelectasis/scarring.No lobar consolidation. No pleural effusion. No pneumothorax. Osseousstructures are typical in appearance for age. IMPRESSION: Impression: Endotracheal tube tip is 1.5 cm above the thor. Electronically Signed: Cj Melendrez MD 01/26/2025 12:31 PM EDT Workstation ID: [id number] Daniel Ocampo MD IM DIAGNOSTIC IMAGING ORD ERABLES Final Result * Respiratory Panel PCR w/COVID-19(SARS-CoV-2) SAMREEN/PIETRO/NA/PAD/COR/[facility] In-House, RN OUTPATIENT SURGERY Swab in UTM/VTM, 2 HR TAT - Swab, Nasopharynx (01/26/2025 12:06 PM EDT) ADENOVIRUS, PCR Not Detected Not Detected BIOFIRE TOR 01/26/2025 1:07 PM EDT [facility] Coronavirus 229E Not Detected Not Detected BIOFIRE TOR 01/26/2025 1:07 PM EDT [facility] Coronavirus HKU1 Not Detected Not Detected BIOFIRE TOR 01/26/2025 1:07 PM EDT [facility] Coronavirus NL63 Not Detected Not Detected BIOFIRE TOR 01/26/2025 1:07 PM EDT [facility] Coronavirus OC43 Not Detected Not Detected BIOFIRE TOR 01/26/2025 1:07 PM EDT [facility] COVID19 Not Detected Not Detected - Ref. Range BIOFIRE TORCH 01/26/2025 1:07 PM EDT [facility] [facility] Human Metapneumovirus Not Detected Not Detected [facility] 01/26/2025 1:07 PM EDT [facility] Human Rhinovirus/Enterov irus Not Detected Not Detected [facility] 01/26/2025 1:07 PM EDT [facility] Influenza A PCR Not Detected Not Detected [facility] 01/26/2025 1:07 PM EDT [facility] Influenza B PCR Not Detected Not Detected [facility] 01/26/2025 1:07 PM EDT [facility] Parainfluenza Virus 1 Not Detected Not Detected [facility] 01/26/2025 1:07 PM EDT [facility] Parainfluenza Virus 2 Not Detected Not Detected [facility] 01/26/2025 1:07 PM EDT [facility] Parainfluenza Virus 3 Not Detected Not Detected [facility] 01/26/2025 1:07 PM EDT [facility] Parainfluenza Virus 4 Not Detected Not Detected [facility] 01/26/2025 1:07 PM EDT [facility] RSV, PCR Not Detected Not Detected [facility] 01/26/2025 1:07 PM EDT [facility] Bordetella pertussis pcr Not Detected Not Detected [facility] 01/26/2025 1:07 PM EDT [facility] Bordetella parapertussis PCR Not Detected Not Detected [facility] 01/26/2025 1:07 PM EDT [facility] Chlamydophila pneumoniae PCR Not Detected Not Detected [facility] 01/26/2025 1:07 PM EDT [facility] Mycoplasma pneumo by PCR Not Detected Not Detected [facility] 01/26/2025 1:07 PM EDT [facility] Swab Nasopharyngeal structure / Unknown Collection / Unknown 01/26/2025 12:06 PM EDT 01/26/2025 12:17 PM EDT [facility] - 01/26/2025 1:07 PM EDT In the setting of a positive respiratory panel with a viral infection PLUS a negative procalcitonin without other underlying concern for bacterial infection, consider observing off antibiotics or discontinuation of antibiotics and continue supportive care. If the respiratory panel is positive for atypical bacterial infection (Bordetella pertussis, Chlamydophila pneumoniae, or Mycoplasma pneumoniae), consider antibiotic de-escalation to target atypical bacterial infection. Daniel Ocampo MD MICROBIOLOGY - GENERAL ORD ERABLES Final Result [facility]
[address] [place] [address], * Ammonia (01/26/2025 12:02 PM EDT) Ammonia 22 16 - 60 umol/L 01/26/2025 1:32 PM EDT [facility] Blood Structure of right upper limb / Unknown Venipuncture / Unknown 01/26/2025 12:02 PM EDT 01/26/2025 1:19 PM EDT Daniel Ocampo MD LAB BLOOD ORDERABLES Final Result Performing Organization Address City/[facility] [address]/ZIP Co de Phone Number [facility]
[address] [place] [address], * Blood Culture - Blood, Arm, Left (01/26/2025 12:00 PM EDT) Blood Culture No growth at 5 days 01/31/2025 1:30 PM EDT [facility] Blood Structure of left upper limb / Unknown Venipuncture / Unknown 01/26/2025 12:00 PM EDT 01/26/2025 1:21 PM EDT Narrative [facility] - 01/31/2025 1:30 PM EDT Less than seven (7) mL's of blood was collected. Insufficient quantity may yield false negative results. Daniel Ocampo MD MICROBIOLOGY - GENERAL ORD ERABLES Final Result [facility]
[address] [place] [address], * (ABNORMAL) POC CHEM 8 (01/26/2025 11:48 AM EDT) Pathologist [facility] Glucose 120 70 - 130 mg/dL 01/26/2025 11:55 AM EDT [facility] BUN 14 8 - 26 mg/dL 01/26/2025 11:55 AM EDT [facility] Creatinine 1.00 0.60 - 1.30 mg/dL 01/26/2025 11:55 AM EDT [facility] Sodium 142 138 - 146 mmol/L 01/26/2025 11:55 AM EDT [facility] POC Potassium 4.0 3.5 - 4.9 mmol/L 01/26/2025 11:55 AM EDT [facility] Chloride 103 98 - 109 mmol/L 01/26/2025 11:55 AM EDT [facility] Total CO2 25 24 - 29 mmol/L 01/26/2025 11:55 AM EDT [facility] Hemoglobin 15.6 12.0 - 17.0 g/dL 01/26/2025 11:55 AM EDT [facility] Comment:Serial Number: [id number] 1Operator: [id number] Hematocrit 46 38 - 51 % 01/26/2025 11:55 AM EDT [facility] Ionized Calcium 1.36(H) 1.20 - 1.32 mmol/L 01/26/2025 11:55 AM EDT [facility] eGFR 82.5 >60.0 mL/min/1.7 3 01/26/2025 11:55 AM EDT [facility] Blood 01/26/2025 11:4 8 AM EDT 01/26/2025 11:55 AM EDT Daniel Ocampo MD POINT OF CARE TEST ORDERAB LES Final Result Performing Organization Address [facility] [address] [facility] Co de Phone Number [facility]
[address] [place] [address], * (ABNORMAL) T4, Free (01/26/2025 11:42 AM EDT) Pathologist [facility] Free T4 0.91(L) 0.92 - 1.68 ng/dL 01/26/2025 1:32 PM EDT [facility] Blood Venipuncture / Unknown 01/26/2025 11:42 AM EDT 01/26/2025 11:52 AM EDT Daniel Ocampo MD LAB BLOOD ORDERABLES Final Result Performing Organization Address [facility] [address] [facility] Co de Phone Number [facility]
[address] [place] [address], * (ABNORMAL) TSH Rfx On Abnormal To Free T4 (01/26/2025 11:42 AM EDT) [facility] TSH 5.390(H) 0.270 - 4.200 uIU/mL 01/26/2025 12:40 PM EDT [facility] Blood Venipuncture / Unknown 01/26/2025 11:42 AM EDT 01/26/2025 11:52 AM EDT Daniel Ocampo MD LAB BLOOD ORDERABLES Final Result Performing Organization Address City/[facility] [address]/[facility] Co de Phone Number [facility]
[address] [place] [address], * Salicylate Level (01/26/2025 11:42 AM EDT) Pathologist [facility] Salicylate <0.3 <=30.0 mg/dL 01/26/2025 12:33 PM EDT [facility] Blood Venipuncture / Unknown 01/26/2025 11:42 AM EDT 01/26/2025 11:52 AM EDT Daniel Ocampo MD LAB BLOOD ORDERABLES Final Result Performing Organization Address City/[facility] [address]/ZIP Co de Phone Number [facility]
[address] [place] [address], * Ethanol (01/26/2025 11:42 AM EDT) Ethanol <10 0 - 10 mg/dL 01/26/2025 12:28 PM EDT [facility] Blood Venipuncture / Unknown 01/26/2025 11:42 AM EDT 01/26/2025 11:52 AM EDT Narrative [facility] - 01/26/2025 12:28 PM EDT Not for legal purposes. Daniel Ocampo MD LAB BLOOD ORDERABLES Final Result Performing Organization Address [facility] [address] [facility]/ZIP Co de Phone Number [facility]
[address] [place] [address], * Acetaminophen Level (01/26/2025 11:42 AM EDT) Acetaminophen <5.0 0.0 - 30.0 mcg/mL 01/26/2025 12:33 PM EDT [facility] Blood Venipuncture / Unknown 01/26/2025 11:42 AM EDT 01/26/2025 11:52 AM EDT Daniel Ocampo MD LAB BLOOD ORDERABLES Final Result [facility]
[address] [place] [address], * Procalcitonin (01/26/2025 11:42 AM EDT) Procalcitonin 0.07 0.00 - 0.25 ng/mL 01/26/2025 1:32 PM EDT [facility] Blood Venipuncture / Unknown 01/26/2025 11:42 AM EDT 01/26/2025 11:52 AM EDT Narrative [facility] - 01/26/2025 1:32 PM EDT As a Marker for Sepsis (Non-Neonates): 1. <0.5 ng/mL represents a low risk of severe sepsis and/or septic shock. 2. >2 ng/mL represents a high risk of severe sepsis and/or septic shock. As a Marker for Lower Respiratory Tract Infections that require antibiotic therapy: PCT on Admission Antibiotic Therapy 6-12 Hrs later >0.5 Strongly Recommended >0.25 - <0.5 Recommended 0.1 - 0.25 Discouraged Remeasure/reassess PCT <0.1 Strongly Discouraged Remeasure/reassess PCT As 28 day mortality risk marker: Change in Procalcitonin Result (>80% or <=80%) if Day 0 (or Day 1) and Day 4 values are available. Refer to http://www.gjmabg-kpq-bziipdpamb.com Change in PCT <=80% A decrease of PCT levels below or equal to 80% defines a positive change in PCT test result representing a higher risk for 28-day all-cause mortality of patients diagnosed with severe sepsis for septic shock. Change in PCT >80% A decrease of PCT levels of more than 80% defines a negative change in PCT result representing a lower risk for 28-day all-cause mortality of patients diagnosed with severe sepsis or septic shock. us Daniel Ocampo MD LAB BLOOD ORDERABLES Final Result [facility]
[address] [place] [address], * Lactic Acid, Plasma (01/26/2025 11:42 AM EDT) Pathologist [facility] Lactate 1.8 0.5 - 2.0 mmol/L 01/26/2025 12:12 PM EDT [facility] Comment:Falsely depressed re sults may occur on samples drawn from patients receiving N-Acetylcysteine (NAC) or Metamizole. Blood Venipuncture / Unknown 01/26/2025 11:42 AM EDT 01/26/2025 11:52 AM EDT Daniel Ocampo MD LAB BLOOD ORDERABLES Final Result Performing Organization Address City/[facility] [address] [facility] Co de Phone Number [facility]
[address] [place] [address], * BNP (01/26/2025 11:42 AM EDT) [facility] proBNP 93.0 0.0 - 900.0 pg/mL 01/26/2025 12:40 PM EDT [facility] Blood Venipuncture / Unknown 01/26/2025 11:42 AM EDT 01/26/2025 11:52 AM EDT Narrative [facility] - 01/26/2025 12:40 PM EDT This assay is used as an aid in the diagnosis of individuals suspected of having heart failure. It can be used as an aid in the diagnosis of acute decompensated heart failure (ADHF) in patients presenting with signs and symptoms of ADHF to the emergency department (ED). In addition, NT-proBNP of <300 pg/mL indicates ADHF is not likely. Age Range Result Interpretation NT-proBNP Concentration (pg/mL: <50 Positive >450 Escudero 300-450 Negative <300 50-75 Positive >900 [place]udero 300-900 Negative <300 >75 Positive >1800 [place]ero 300-1800 Negative <300 Daniel Ocampo MD LAB BLOOD ORDERABLES Final Result Performing Organization Address [facility] [address] [facility]/ZIP Co de Phone Number [facility]
[address] [place] [address], * (ABNORMAL) CBC Auto Differential (01/26/2025 11:42 AM EDT) [facility] WBC 6.32 3.40 - 10.80 10*3/mm3 01/26/2025 11:56 AM EDT [facility] RBC 4.49 4.14 - 5.80 10*6/mm3 01/26/2025 11:56 AM EDT [facility] Hemoglobin 15.2 13.0 - 17.7 g/dL 01/26/2025 11:56 AM EDT [facility] Hematocrit 45.7 37.5 - 51.0 % 01/26/2025 11:56 AM EDT [facility] MCV 101.8(H) 79.0 - 97.0 fL 01/26/2025 11:56 AM EDT [facility] MCH 33.9(H) 26.6 - 33.0 pg 01/26/2025 11:56 AM EDT [facility] MCHC 33.3 31.5 - 35.7 g/dL 01/26/2025 11:56 AM EDT [facility] RDW 13.0 12.3 - 15.4 % 01/26/2025 11:56 AM EDT [facility] RDW-SD 48.6 37.0 - 54.0 fl 01/26/2025 11:56 AM EDT [facility] MPV 9.5 6.0 - 12.0 fL 01/26/2025 11:56 AM EDT [facility] Platelets 146 140 - 450 10*3/mm3 01/26/2025 11:56 AM EDT [facility] Neutrophil % 61.6 42.7 - 76.0 % 01/26/2025 11:56 AM EDT [facility] Lymphocyte % 23.9 19.6 - 45.3 % 01/26/2025 11:56 AM EDT [facility] Monocyte % 7.9 5.0 - 12.0 % 01/26/2025 11:56 AM EDT [facility] Eosinophil % 5.5 0.3 - 6.2 % 01/26/2025 11:56 AM EDT [facility] Basophil % 0.8 0.0 - 1.5 % 01/26/2025 11:56 AM EDT [facility] Immature Grans % 0.3 0.0 - 0.5 % 01/26/2025 11:56 AM EDT [facility] Neutrophils, Absolute 3.89 1.70 - 7.00 10*3/mm3 01/26/2025 11:56 AM EDT [facility] Lymphocytes, Absolute 1.51 0.70 - 3.10 10*3/mm3 01/26/2025 11:56 AM EDT [facility] Monocytes, Absolute 0.50 0.10 - 0.90 10*3/mm3 01/26/2025 11:56 AM EDT [facility] Eosinophils, Absolute 0.35 0.00 - 0.40 10*3/mm3 01/26/2025 11:56 AM EDT [facility] Basophils, Absolute 0.05 0.00 - 0.20 10*3/mm3 01/26/2025 11:56 AM EDT [facility] Immature Grans, Absolute 0.02 0.00 - 0.05 10*3/mm3 01/26/2025 11:56 AM EDT [facility] nRBC 0.0 0.0 - 0.2 /100 WBC 01/26/2025 11:56 AM T [facility] Blood Venipuncture / Unknown 01/26/2025 11:42 AM EDT 01/26/2025 11:52 AM EDT us Daniel Ocampo MD LAB BLOOD ORDERABLES Final Result [facility]
[address] [place] [address], * Light Blue Top (01/26/2025 11:42 AM EDT) Extra Tube Hold for add-ons. 01/26/2025 12:00 PM EDT [facility] Comment:Auto resulted Blood Venipuncture / Unknown 01/26/2025 11:42 AM EDT 01/26/2025 11:52 AM EDT Daniel Ocampo MD LAB BLOOD ORDER ONLY Final Result Performing Organization Address City/[facility] [address]/ZIP Co de Phone Number [facility]
[address] [place] [address], * Escudero Top (01/26/2025 11:42 AM EDT) Extra Tube Hold for add-ons. 01/26/2025 12:00 PM EDT [facility] Comment:Auto resulted. Blood Venipuncture / Unknown 01/26/2025 11:42 AM EDT 01/26/2025 11:52 AM EDT Daniel Ocampo MD LAB BLOOD ORDER ONLY Final Result Performing Organization Address [facility] [address]/[facility] Co de Phone Number [facility]
[address] [place] [address], * Gold Top - SST (01/26/2025 11:42 AM EDT) Extra Tube Hold for add-ons. 01/26/2025 12:00 PM EDT [facility] Comment:Auto resulted. Blood Venipuncture / Unknown 01/26/2025 11:42 AM EDT 01/26/2025 11:52 AM EDT Daniel Ocampo MD LAB BLOOD ORDER ONLY Final Result Performing Organization Address City/[facility] [address]/ZIP Co de Phone Number [facility]
[address] [place] [address], * Lavender Top (01/26/2025 11:42 AM EDT) Extra Tube hold for add-on 01/26/2025 12:00 PM EDT [facility] Comment:Auto resulted Blood Venipuncture / Unknown 01/26/2025 11:42 AM EDT 01/26/2025 11:52 AM EDT Daniel Ocampo MD LAB BLOOD ORDER ONLY Final Result Performing Organization Address City/[facility] [address]/ZIP Co de Phone Number [facility]
[address] [place] [address], * Green Top (Gel) (01/26/2025 11:42 AM EDT) Pathologist [facility] Extra Tube Hold for add-ons. 01/26/2025 12:00 PM EDT [facility] Comment:Auto resulted. Blood Venipuncture / Unknown 01/26/2025 11:42 AM EDT 01/26/2025 11:52 AM EDT Daniel Ocampo MD LAB BLOOD ORDER ONLY Final Result Performing Organization Address [facility] [address] [facility] Co de Phone Number [facility]
[address] [place] [address], * Magnesium (01/26/2025 11:42 AM EDT) Pathologist [facility] Magnesium 2.1 1.6 - 2.4 mg/dL 01/26/2025 12:19 PM EDT [facility] Blood Venipuncture / Unknown 01/26/2025 11:42 AM EDT 01/26/2025 11:52 AM EDT Daniel Ocampo MD LAB BLOOD ORDERABLES Final Result Performing Organization Address City/[facility] [address]/ZIP Co de Phone Number [facility]
[address] [place] [address], * High Sensitivity Troponin T (01/26/2025 11:42 AM EDT) Pathologist [facility] HS Troponin T 11 <22 ng/L 01/26/2025 12:19 PM EDT [facility] Blood Venipuncture / Unknown 01/26/2025 11:42 AM EDT 01/26/2025 11:52 AM EDT [facility] - 01/26/2025 12:19 PM EDT High Sensitive Troponin T Reference Range: <14.0 ng/L- Negative Female for AMI <22.0 ng/L- Negative Male for AMI >=14 - Abnormal Female indicating possible myocardial injury. >=22 - Abnormal Male indicating possible myocardial injury. Clinicians would have to utilize clinical acumen, EKG, Troponin, and serial changes to determine if it is an Acute Myocardial Infarction or myocardial injury due to an underlying chronic condition. Daniel Ocampo MD LAB BLOOD ORDERABLES Final Result [facility]
[address] [place] [address], * (ABNORMAL) Comprehensive Metabolic Panel (01/26/2025 11:42 AM EDT) [facility] Glucose 120(H) 65 - 99 mg/dL 01/26/2025 12:19 PM EDT [facility] BUN 13.3 8.0 - 23.0 mg/dL 01/26/2025 12:19 PM EDT [facility] Creatinine 0.89 0.76 - 1.27 mg/dL 01/26/2025 12:19 PM EDT [facility] Sodium 138 136 - 145 mmol/L 01/26/2025 12:19 PM EDT [facility] Potassium 4.1 3.5 - 5.2 mmol/L 01/26/2025 12:19 PM EDT [facility] Chloride 104 98 - 107 mmol/L 01/26/2025 12:19 PM EDT [facility] CO2 24.0 22.0 - 29.0 mmol/L 01/26/2025 12:19 PM EDT [facility] Calcium 9.9 8.6 - 10.5 mg/dL 01/26/2025 12:19 PM [facility] Total Protein 7.6 6.0 - 8.5 g/dL 01/26/2025 12:19 PM [facility] Albumin 4.0 3.5 - 5.2 g/dL 01/26/2025 12:19 PM [facility] ALT (SGPT) 35 1 - 41 U/L 01/26/2025 12:19 PM [facility] AST (SGOT) 34 1 - 40 U/L 01/26/2025 12:19 PM [facility] Alkaline Phosphatase 86 39 - 117 U/L 01/26/2025 12:19 PM [facility] Total Bilirubin 0.6 0.0 - 1.2 mg/dL 01/26/2025 12:19 PM [facility] Globulin 3.6 gm/dL 01/26/2025 12:19 PM [facility] Comment:Calculated Result A/G Ratio 1.1 g/dL 01/26/2025 12:19 PM [facility] BUN/Creatinine Ratio 14.9 7.0 - 25.0 01/26/2025 12:19 PM [facility] Anion Gap 10.0 5.0 - 15.0 mmol/L 01/26/2025 12:19 PM [facility] eGFR 93.9 >60.0 mL/min/1.7 3 01/26/2025 12:19 PM [facility] Blood Venipuncture / Unknown 01/26/2025 11:42 AM EDT 01/26/2025 11:52 AM [facility] - 01/26/2025 12:19 PM EDT GFR Categories in Chronic Kidney Disease (CKD) GFR Category GFR (mL/min/1.73) Interpretation G1 90 or greater Normal or high (1) G2 60-89 Mild decrease (1) G3a 45-59 Mild to moderate decrease G3b 30-44 Moderate to severe decrease G4 15-29 Severe decrease G5 14 or less Kidney failure (1)In the absence of evidence of kidney disease, neither GFR category G1 or G2 fulfill the criteria for CKD. eGFR calculation 2020 CKD-EPI creatinine equation, which does not include race as a factor us Daniel Ocampo MD LAB BLOOD ORDERABLES Final Result Performing Organization Address [facility] [address]/[facility] Co de Phone Number [facility]
[address] [place] [address], * Blood Culture - Blood, Arm, Right (01/26/2025 11:30 AM EDT) Blood Culture No growth at 5 days 01/31/2025 1:30 PM EDT [facility] Blood Structure of right upper limb / Unknown Venipuncture / Unknown 01/26/2025 11:30 AM EDT 01/26/2025 1:20 PM EDT Narrative [facility] - 01/31/2025 1:30 PM EDT Less than seven (7) mL's of blood was collected. Insufficient quantity may yield false negative results. us Daniel Ocampo MD MICROBIOLOGY - GENERAL ORD ERABLES Final Result Performing Organization Address [facility] [address] [facility] Co de Phone Number [facility]
[address] [place] [address], documented in this encounter Visit Diagnoses Diagnosis Encephalopathy, metabolic- Primary Metabolic encephalopathy Altered mental status, unspecified altered mental status type Acute encephalopathy Acute respiratory failure, unspecified whether with hypoxia or hypercapnia Dysphagia, unspecified type Obesity, morbid, BMI 40.0-49.9 Encephalopathy, metabolic Metabolic encephalopathy Hypophosphatemia Disorders of phosphorus metabolism Transient alteration of awareness Essential hypertension Unspecified essential hypertension Asymptomatic stenosis of right vertebral artery Essential hypertension Unspecified essential hypertension Hyperlipidemia Other and unspecified hyperlipidemia Type 2 diabetes mellitus Obesity, morbid, BMI 40.0-49.9 Altered mental status Hypophosphatemia Disorders of phosphorus metabolism documented in this encounter Admitting Diagnoses Diagnosis Altered mental status documented in this encounter Administered Medications Inactive Administered Medications - up to 3 most recent administrations Medication Order MAR Action Action Date Dose Rate Site acetaminophen (TYLENOL) tablet 650 mg 650 mg, Oral, Every 6 Hours PRN, Fever, Starting on Fri01/30/25 at 0113, If given for fever, use fever parameter: fever greater than 100.4 F Based on patient request - if ordered for moderate or severe pain, provider allows for administration of a medication prescribed for a lower pain scale. Do not exceed 4 grams of acetaminophen in a 24 hr period. Max dose of 2gm for AST/ALT greater than 120 units/L. If given for pain, use the following pain scale: Mild Pain = Pain Score of 1-3, CPOT 1-2 Moderate Pain = Pain Score of 4-6, CPOT 3-4 Severe Pain = Pain Score of 7-10, CPOT 5-8 Given 01/30/2025 2:32 AM EDT 650 mg acetylcysteine (MUCOMYST) 20 % nebulizer solution 4 mL 4 mL, Nebulization, 3 Times Daily - RT, First dose on Fri01/28/25 at 1430, Include Respiratory Treatment Education For INHALATION USE ONLY. NOT for IV use. Given 02/02/2025 7:57 AM EDT 4 mL Given 02/01/2025 7:38 PM EDT 4 mL Given 02/01/2025 9:13 AM EDT 4 mL aspirin chewable tablet 81 mg 81 mg, Oral, Daily, First dose on Diane 01/27/25 at 0900, If patient fails dysphagia, OH option MUST be given. Do not exceed 4 grams of aspirin in a 24 hr period. If given for pain, use the following pain scale: Mild Pain = Pain Score of 1-3, CPOT 1-2 Moderate Pain = Pain Score of 4-6, CPOT 3-4 Severe Pain = Pain Score of 7-10, CPOT 5-8 Given 02/02/2025 8:42 AM EDT 81 mg Given 02/01/2025 9:10 AM EDT 81 mg Given 01/31/2025 8:40 AM EDT 81 mg aspirin suppository 300 mg 300 mg, Rectal, Daily, First dose on Diane 01/27/25 at 0900, If patient fails dysphagia, [place] option MUST be given. Do not exceed 4 grams of aspirin in a 24 hr period. If given for pain, use the following pain scale: Mild Pain = Pain Score of 1-3, CPOT 1-2 Moderate Pain = Pain Score of 4-6, CPOT 3-4 Severe Pain = Pain Score of 7-10, CPOT 5-8 Given 01/28/2025 8:12 AM EDT 300 mg Given 01/27/2025 9:55 AM EDT 300 mg atorvastatin (LIPITOR) tablet 80 mg 80 mg, Oral, Nightly, First dose on Fri01/26/25 at 2100, Avoid grapefruit juice. Given 02/01/2025 9:12 PM EDT 80 mg Given 01/31/2025 8:08 PM EDT 80 mg Given 01/30/2025 8:58 PM EDT 80 mg azithromycin (ZITHROMAX) 500 mg in sodium chloride 0.9 % 250 mL IVPB-VTB 500 mg, Intravenous, Administer over 60 Minutes, Every 24 Hours, First dose on Fri01/29/25 at 1300, For 3 days, Activate vial before use., Indications: OtherIndications:Other New Bag 01/31/2025 4:01 PM EDT 500 mg New Bag 01/30/2025 12:56 PM EDT 500 mg New Bag 01/29/2025 2:08 PM EDT 500 mg bisacodyl (DULCOLAX) EC tablet 5 mg 5 mg, Oral, Daily PRN, Constipation, Use if polyethylene glycol is ineffective, Starting on Fri01/26/25 at 1457, Use if no bowel movement after 12 hours. Swallow whole. Do not crush, split, or chew tablet. bisacodyl (DULCOLAX) suppository 10 mg 10 mg, Rectal, Daily PRN, Constipation, Use if bisacodyl oral is ineffective, Starting on Fri01/26/25 at 1457, Use if no bowel movement after 12 hours. Hold for diarrhea Calcium Replacement - Follow Nurse / BPA Driven Protocol Open Order & Select [facility] Electrolyte Replacement Protocol Algorithm to View Details cefTRIAXone (ROCEPHIN) 2,000 mg in sodium chloride 0.9 % 100 mL MBP 2,000 mg, Intravenous, at 200 mL/hr, Administer over 30 Minutes, Every 24 Hours, First dose on Fri01/29/25 at 1200, For 3 days, LR should be paused and flushing of the line with NS is recommended prior to and after completion of ceftriaxone infusion due to incompatibility. Do not co-adminster with calcium-containing solutions. Caution: Look alike/sound alike drug alert, Indications: PneumoniaIndications:Pneumonia New Bag 01/30/2025 12:55 PM EDT 2,000 mg 200 mL/hr New Bag 01/29/2025 12:28 PM EDT 2,000 mg 200 mL/hr clopidogrel (PLAVIX) tablet 75 mg 75 mg, Oral, Daily, First dose on Fri01/28/25 at 1400 Given 02/02/2025 8:42 AM EDT 75 mg Given 02/01/2025 9:10 AM EDT 75 mg Given 01/31/2025 8:40 AM EDT 75 mg dexmedeTOMIDine (PRECEDEX) 400 mcg in 100 mL NS infusion 0.2-1.5 mcg/kg/hr 150 kg (7.5-56.25 mL/hr, rounded to 7.5-56.3 mL/hr), Intravenous, Titrated, Starting on Fri01/26/25 at 1915, Begin infusion at 0.2 mcg/kg/hr and titrate up or down by 0.1-0.2 mcg/kg/hr every 15 minutes to maintain RASS goal. Maximum rate 1.5 mcg/kg/hr. Notify MD if not at RASS goal and requiring rate of greater than 1.5 mcg/kg/hr, or heart rate is less than 50 beats per minute, or MAP is less than 60 mmHg. Monitor RASS., Titration Indication: Sedation New Bag 01/28/2025 9:50 AM EDT 1.4 mcg/kg/hr 52.5 mL/h r New Bag 01/28/2025 8:04 AM EDT 1.4 mcg/kg/hr 52.5 mL/hr New Bag 01/28/2025 6:09 AM EDT 1.4 mcg/kg/hr 52.5 mL/hr dextrose (D50W) (25 g/50 mL) IV injection 25 g 25 g, Intravenous, Every 15 Minutes PRN, Low Blood Sugar, Blood Sugar Less Than 70, Starting on Fri01/26/25 at 1458, Blood sugar less than 70; patient has IV access - Unresponsive, NPO or Unable To Safely Swallow dextrose (GLUTOSE) oral gel 15 g 15 g, Oral, Every 15 Minutes PRN, Low Blood Sugar, Blood sugar less than 70, Starting on Fri01/26/25 at 1458, BS<70, Patient Alert, Is not NPO, Can safely swallow. etomidate (AMIDATE) injection Intravenous, Code / Trauma / Sedation Medication, Starting on Fri01/26/25 at 1141 Given 01/26/2025 11:41 AM EDT 40 mg fentaNYL 2500 mcg/250 mL NS infusion Starting on Fri01/26/25 at 1146, For 1 dose, Created by cabinet override Caution: Look alike/sound alike drug alert If given for pain, use the following pain scale: Mild Pain = Pain Score of 1-3, CPOT 1-2 Moderate Pain = Pain Score of 4-6, CPOT 3-4 Severe Pain = Pain Score of 7-10, CPOT 5-8 fentaNYL 2500 mcg/250 mL NS infusion 50-300 mcg/hr (5-30 mL/hr), Intravenous, Titrated, Starting on Fri01/26/25 at 1210, For 7 days, Start infusion at 50 mcg/hr and titrate up or down by 12.5 - 50 mcg/hr every 5 - 10 minutes for NRS 7-10 or CPOT 5-8. Max. dose 300 mcg/hr. Caution: Look alike/sound alike drug alert If given for pain, use the following pain scale: Mild Pain = Pain Score of 1-3, CPOT 1-2 Moderate Pain = Pain Score of 4-6, CPOT 3-4 Severe Pain = Pain Score of 7-10, CPOT 5-8, Titration Indication: Sedation Rate/Dose Change 01/26/2025 2:15 PM EDT 250 mcg/hr 25 mL/hr Rate/Dose Change 01/26/2025 1:39 PM EDT 200 mcg/hr 20 mL/h r Rate/Dose Change 01/26/2025 1:20 PM EDT 150 mcg/hr 15 mL/h r furosemide (LASIX) injection 20 mg 20 mg, Intravenous, Once, On Fri01/28/25 at 1200, For 1 dose, Doses over 100 mg will dispense an IVPB bolus. Given 01/28/2025 12:02 PM EDT 20 mg glucagon (GLUCAGEN) injection 1 mg 1 mg, Intramuscular, Every 15 Minutes PRN, Low Blood Sugar, Blood Glucose Less Than 70, Starting on Fri01/26/25 at 1458, Blood Glucose Less Than 70 - Patient Without IV Access - Unresponsive, NPO or Unable To Safely Swallow Reconstitute powder for injection by adding 1 mL of knotter hand-supplied sterile diluent or sterile water for injection to a vial containing 1 mg of the drug, to provide solutions containing 1 mg/mL. Shake vial gently to dissolve. guaiFENesin (MUCINEX) 12 hr tablet 600 mg 600 mg, Oral, Every 12 Hours Scheduled, First dose on Fri02/01/25 at 0930, Caution: Look alike/sound alike drug alert Do not crush, split, or chew. Given 02/02/2025 8:42 AM EDT 600 mg Given 02/01/2025 9:12 PM EDT 600 mg Given 02/01/2025 9:10 AM EDT 600 mg haloperidol lactate (HALDOL) injection 5 mg 5 mg, Intravenous, Once, On Fri01/28/25 at 0545, For 1 dose, For IV Push, administer no faster than 5 mg / minute. Given 01/28/2025 4:59 AM EDT 5 mg heparin (porcine) 5000 UNIT/ML injection 5,000 Units 5,000 Units, Subcutaneous, Every 8 Hours Scheduled, First dose on Fri01/27/25 at 1500, Indications: VTE ProphylaxisIndications:VTE Prophylaxis Given 02/02/2025 5:57 AM EDT 5,000 Units Left Lower Abdomen Given 02/01/2025 9:13 PM EDT 5,000 Units L eft Lower Abdomen Given 02/01/2025 2:44 PM EDT 5,000 Units L eft Upper Abdomen iopamidol (ISOVUE-370) 76 % injection 100 mL 100 mL, Intravenous, Once in Imaging, On Fri01/26/25 at 1353, For 1 dose Given 01/26/2025 1:37 PM EDT 100 mL iopamidol (ISOVUE-370) 76 % injection 150 mL 150 mL, Intravenous, Once in Imaging, On Fri01/26/25 at 1356, For 1 dose Given 01/26/2025 1:40 PM EDT 115 mL ipratropium-albuterol (DUO-NEB) nebulizer solution 3 mL 3 mL, Nebulization, Every 4 Hours PRN, Wheezing, Shortness of Air, Starting on Fri01/28/25 at 1154 Given 02/02/2025 7:57 AM EDT 3 mL Given 02/01/2025 7:38 PM EDT 3 mL Given 02/01/2025 9:12 AM EDT 3 mL labetalol (NORMODYNE,TRANDATE) injection 20 mg 20 mg, Intravenous, Every 4 Hours PRN, High Blood Pressure, Starting on 01/29/25 at 0119, As needed for SBP greater than 160 Give IV Push over 2 minutes. Given 01/30/2025 2:32 AM EDT 20 mg Given 01/29/2025 2:08 PM EDT 20 mg Given 01/29/2025 7:00 AM EDT 20 mg levothyroxine (SYNTHROID, LEVOTHROID) tablet 100 mcg 100 mcg, Oral, Every Milk Pickup Truck Driver, First dose on 01/29/25 at 0600, Take on empty stomach. Given 02/02/2025 5:57 AM EDT 100 mcg Given 02/01/2025 5:00 AM EDT 100 mcg Given 01/31/2025 5:52 AM EDT 100 mcg levothyroxine sodium injection 100 mcg 100 mcg, Intravenous, Daily at 1100, First dose on Diane 01/27/25 at 1100, This medication is formulary restricted to the indications below by [facility] P&T: Suspected or confirmed myxedema coma Given 01/28/2025 12:02 PM EDT 100 mc g Given 01/27/2025 12:01 PM EDT 100 mcg levothyroxine sodium injection 250 mcg 250 mcg, Intravenous, Once, On Fri01/26/25 at 1930, For 1 dose, This medication is formulary restricted to the indications below by [facility] P&T: Suspected or confirmed myxedema coma Given 01/26/2025 10:04 PM EDT 250 mcg Magnesium Cardiology Dose Replacement - Follow Nurse / BPA Driven Protocol Open Order & Select S Electrolyte Replacement Protocol Algorithm to View Details miconazole (MICOTIN) 2 % powder 1 Application 1 Application, Topical, Every 12 Hours Scheduled, First dose on Fri01/26/25 at 2100, Apply to Groin Given 02/02/2025 8:42 AM EDT 1 Application Given 02/01/2025 9:13 PM EDT 1 Application Given 02/01/2025 9:10 AM EDT 1 Application midazolam (VERSED) 100 mg in 100mL NS infusion Starting on Fri01/26/25 at 1147, For 1 dose, Created by cabinet override midazolam (VERSED) 100 mg in 100mL NS infusion 1-10 mg/hr (1-10 mL/hr), Intravenous, Titrated, Starting on Fri01/26/25 at 1210, Begin infusion at 1 mg/hr and titrate by 1 - 2 mg/hr every 5 - 10 minutes to maintain Target Arousal Level (RASS). Notify provider not at goal and requiring 10 mg/hr., Titration Indication: Sedation Rate/Dose Change 01/26/2025 6:03 PM EDT 4 mg/hr 4 mL/hr Rate/Dose Change 01/26/2025 2:15 PM EDT 8 mg/hr 8 mL/hr Rate/Dose Change 01/26/2025 1:39 PM EDT 6 mg/hr 6 mL/hr mupirocin (BACTROBAN) 2 % nasal ointment 1 Application 1 Application, Each Nare, 2 Times Daily, First dose on Fri01/26/25 at 1600, For 5 days, Begin on day 1 of ICU admission and continue for 5 days, even if patient transferred out of critical care. MUPIROCIN APPLICATION: 1. Place patient's bed at 30 degrees, if tolerated. 2. Wash your hands with warm soapy water or use hand press assistant. 3. Open the tube of mupirocin 2%. 4. Squeeze about 0.5 g (blueberry-size) of mupirocin from the tube onto a sterile applicator or a cotton swab. 5. Apply the swab directly into nostril. Ensure coating of the sides of the nostril. 6. Repeat with second sterile applicator for other nostril. 7. Gently press the sides of the nostrils together and massage gently for 60 seconds. ([facility]) Given 01/30/2025 8:58 PM EDT 1 Ap plication Given 01/30/2025 8:56 AM EDT 1 Application Given 01/29/2025 9:18 PM EDT 1 Application nitroglycerin (NITROSTAT) SL tablet 0.4 mg 0.4 mg, Sublingual, Every 5 Minutes PRN, Chest Pain, Starting on Fri01/26/25 at 1457, If Pain Unrelieved After 3 Doses Notify MD May administer up to 3 doses per episode. Hold if SBP less than 100. ondansetron (ZOFRAN) injection 4 mg 4 mg, Intravenous, Every 6 Hours PRN, Nausea, Vomiting, Starting on Fri01/28/25 at 1715, If multiple N/V medications ordered, use in the following order: Ondansetron, Prochlorperazine, Promethazine. Use PO unless patient refuses or patient unable to swallow. Given 01/29/2025 9:24 PM EDT 4 mg Given 01/29/2025 7:07 AM EDT 4 mg Given 01/28/2025 5:29 PM EDT 4 mg pantoprazole (PROTONIX) EC tablet 40 mg 40 mg, Oral, Every Milk [employer] Driver, First dose on Fri01/31/25 at 0600, Swallow whole; do not crush, split, or chew. Given 02/02/2025 5:57 AM EDT 40 mg Given 02/01/2025 5:00 AM EDT 40 mg Given 01/31/2025 5:52 AM EDT 40 mg pantoprazole (PROTONIX) injection 40 mg 40 mg, Intravenous, Every 24 Hours Scheduled, First dose on Fri01/26/25 at 1600, Dilute with 10 mL of 0.9% NaCl and give IV push over 2 minutes., Indications: Stress Ulcer ProphylaxisIndications:Stress Ulcer Prophylaxis Given 01/30/2025 8:56 AM EDT 40 mg Given 01/29/2025 9:00 AM EDT 40 mg Given 01/28/2025 8:05 AM EDT 40 mg Phosphorus Replacement - Follow Nurse / BPA Driven Protocol Open Order & Select S Electrolyte Replacement Protocol Algorithm to View Details piperacillin-tazobactam (ZOSYN) 4.5 g IVPB in 100 mL NS MBP (CD) 4.5 g, Intravenous, Administer over 30 Minutes, Once, On Fri01/26/25 at 2000, For 1 dose New Bag 01/26/2025 8:02 PM EDT 4.5 g piperacillin-tazobactam (ZOSYN) 4.5 g IVPB in 100 mL NS MBP (CD) 4.5 g, Intravenous, Administer over 4 Hours, Every 8 Hours, First dose on Diane 01/27/25 at 0400, For 7 days, Indications: PneumoniaIndications:Pneumonia New Bag 01/29/2025 4:03 AM EDT 4.5 g New Bag 01/28/2025 8:44 PM EDT 4.5 g New Bag 01/28/2025 12:02 PM EDT 4.5 g polyethylene glycol (MIRALAX) packet 17 g 17 g, Oral, Daily PRN, Constipation, Use if senna-docusate is ineffective, Starting on Fri01/26/25 at 1457, Use if no bowel movement after 12 hours. Mix in 6-8 ounces of water. Use 4-8 ounces of water, tea, or juice for each 17 gram dose. potassium & sodium phosphates (PHOS-NAK) 280-160-250 MG packet 2 packet 2 packet, Oral, Once, On Fri01/31/25 at 0515, For 1 dose, Take with full glass of water Given 01/31/2025 5:52 AM EDT 2 packets potassium chloride (KLOR-CON M20) CR tablet 40 mEq 40 mEq, Oral, Every 4 Hours, First dose on Fri01/31/25 at 0515, For 2 doses, Do not crush or chew the capsules or tablets. The drug may not work as designed if the capsule or tablet is crushed or chewed. Swallow whole. Take with food. Given 01/31/2025 8:40 AM EDT 40 mEq Given 01/31/2025 5:53 AM EDT 40 mEq Potassium Replacement - Follow Nurse / BPA Driven Protocol Open Order & Select S Electrolyte Replacement Protocol Algorithm to View Details prochlorperazine (COMPAZINE) injection 10 mg 10 mg, Intravenous, Once, On Fri01/28/25 at 2215, For 1 dose, If multiple N/V medications ordered, use in the following order: Ondansetron, Prochlorperazine, Promethazine. Use PO unless patient refuses or patient unable to swallow. Given 01/28/2025 9:34 PM EDT 10 mg ProSource No Carb oral solution 30 mL 30 mL, Oral, 2 Times Daily, First dose (after last modification) on Fri01/30/25 at 2100 Given 02/01/2025 9:11 AM EDT 30 mL rocuronium (ZEMURON) injection Code / Trauma / Sedation Medication, Starting on Fri01/26/25 at 1141 Given 01/26/2025 11:41 AM EDT 100 mg sennosides-docusate (PERICOLACE) 8.6-50 MG per tablet 2 tablet 2 tablet, Oral, 2 Times Daily, First dose on Fri01/26/25 at 2100, HOLD MEDICATION IF PATIENT HAS HAD BOWEL MOVEMENT. Start bowel management regimen if patient has not had a bowel movement after 12 hours. Given 01/31/2025 8:08 PM EDT 2 tablets Given 01/29/2025 9:18 PM EDT 2 tablets sodium chloride 0.9 % flush 10 mL 10 mL, Intravenous, Every 12 Hours Scheduled, First dose on Fri01/26/25 at 2100 Given 01/30/2025 8:59 PM EDT 10 mL Given 01/30/2025 8:56 AM EDT 10 mL Given 01/29/2025 9:18 PM EDT 10 mL sodium chloride 0.9 % flush 10 mL 10 mL, Intravenous, As Needed, Line Care, Starting on Fri01/26/25 at 1457 sodium chloride 7 % nebulizer solution nebulizer solution 4 mL 4 mL, Nebulization, Daily - RT, First dose on Fri02/01/25 at 0930, For 3 doses, Include Respiratory Treatment Education CAUTION: Hypertonic Given 02/02/2025 7:57 AM EDT 4 mL Given 02/01/2025 9:13 AM EDT 4 mL sodium phosphates 15 mmol in sodium chloride 0.9 % 250 mL infusion 15 mmol, Intravenous, Administer over 3 Hours, Once, On Fri01/31/25 at 1900, For 1 dose New Bag 01/31/2025 8:09 PM EDT 15 mmol Sulfur Hexafluoride Microsph (LUMASON) 60.7-25 MG IV reconstituted suspension reconstituted suspension 2 mL 2 mL, Intravenous, Once in Imaging, On Fri01/26/25 at 1845, For 1 dose Given 01/26/2025 5:56 PM EDT 2 mL documented in this encounter Active and Recently Administered Medications Times are shown in EDT. Scheduled Medication Order 01/31/2025 02/01/2025 02/02/2025 acetylcysteine (MUCOMYST) 20 % nebulizer solution 4 mL 4 mL, Nebulization, 3 Times Daily - RT, First dose on Fri01/28/25 at 1430, Include Respiratory Treatment Education For INHALATION USE ONLY. NOT for IV use. 0743 (Given - Provider: Tania Erickson, GEAR HOBBER SET UP OPERATOR)1243 (Given - Provider: Taj Lopez, FIRE CONTROL TECHNICIAN)1430 (Canceled Entry - Provider: Taj Lopez FIRE CONTROL TECHNICIAN)2032 (Given - Provider: Indio Mcgarry, FIRE CONTROL TECHNICIAN) 0913 (Given - Provider: Washington Santos, FIRE CONTROL TECHNICIAN)1430 (Due)193 (Given - Provider: Tierra Nassar, FIRE CONTROL TECHNICIAN) 0757 (Given - Provider: Ani Moreno, FIRE CONTROL TECHNICIAN)1409 (Not Given - Provider: Ani Moreno RRT - Reason: Patient/family refused) aspirin chewable tablet 81 mg(Linked Group 1) 81 mg, Oral, Daily, First dose on Fri01/27/25 at 0900, If patient fails dysphagia, OH option MUST be given. Do not exceed 4 grams of aspirin in a 24 hr period. If given for pain, use the following pain scale: Mild Pain = Pain Score of 1-3, CPOT 1-2 Moderate Pain = Pain Score of 4-6, CPOT 3-4 Severe Pain = Pain Score of 7-10, CPOT 5-8 0840 (Given - Provider: Wes De La Cruz RN) 0910 (Given - Provider: Milli Chowdary, ALISA) 0842 (Given - Provider: Rogelio Melvin RN) atorvastatin (LIPITOR) tablet 80 mg 80 mg, Oral, Nightly, First dose on Fri01/26/25 at 2100, Avoid grapefruit juice. 2007 (Given - Provider: Carrie Prieto, ALISA) 2111 (Given - Provider: Shantel Gardner RN) azithromycin (ZITHROMAX) 500 mg in sodium chloride 0.9 % 250 mL IVPB-VTB (COMPLETED) 500 mg, Intravenous, Administer over 60 Minutes, Every 24 Hours, First dose on Fri01/29/25 at 1300, For 3 days, Activate vial before use., Indications: Other 1601 (New Bag - Provider: Milli Chowdary, ALISA) clopidogrel (PLAVIX) tablet 75 mg 75 mg, Oral, Daily, First dose on Fri01/28/25 at 1400 0840 (Given - Provider: Wes De La Cruz RN) 0910 (Given - Provider: Milli Chowdary, ALISA) 0842 (Given - Provider: Rogelio Melvin, ALISA) guaiFENesin (MUCINEX) 12 hr tablet 600 mg 600 mg, Oral, Every 12 Hours Scheduled, First dose on Fri02/01/25 at 0930, Caution: Look alike/sound alike drug alert Do not crush, split, or chew. 09 (Given - Provider: Milli Chowdary, ALISA)2111 (Given - Provider: Shantel Gardner RN) 08 (Given - Provider: Rogelio Melvin RN) heparin (porcine) 5000 UNIT/ML injection 5,000 Units 5,000 Units, Subcutaneous, Every 8 Hours Scheduled, First dose on Fri01/27/25 at 1500, Indications: VTE Prophylaxis 0552 (Given - Provider: Evita Coelho RN)160 (Given - Provider: Milli Chowdary RN)2118 (Given - Provider: Carrie Prieto RN) 050 (Given - Provider: Carrie Prieto, ALISA)144 (Given - Provider: Milli Chowdary RN)2112 (Given - Provider: Shantel Gardner RN) 0557 (Given - Provider: Les Arenas, ALISA) levothyroxine (SYNTHROID, LEVOTHROID) tablet 100 mcg 100 mcg, Oral, Every Milk Pickup Truck Driver, First dose on Fri01/29/25 at 0600, Take on empty stomach. 0552 (Given - Provider: Evita Coelho RN) 0500 (Given - Provider: Carrie Prieto, ALISA) 0557 (Given - Provider: Les Arenas, ALISA) miconazole (MICOTIN) 2 % powder 1 Application 1 Application, Topical, Every 12 Hours Scheduled, First dose on Fri01/26/25 at 2100, Apply to Groin 0840 (Given - Provider: Wes De La Cruz RN)2119 (Not Given - Provider: Carrie Prieto RN - Reason: Patient/family refused) 909 (Given - Provider: Milli Chowdary RN)2112 (Given - Provider: Shantel Gardner RN) 0842 (Given - Provider: Rogelio Melvin RN) pantoprazole (PROTONIX) EC tablet 40 mg 40 mg, Oral, Every Milk [employer]up [employer] Driver, First dose on Fri01/31/25 at 0600, Swallow whole; do not crush, split, or chew. 0552 (Given - Provider: Evita Coelho RN) 0500 (Given - Provider: Carrie Prieto, RN) 0557 (Given - Provider: Les Arenas RN) potassium & sodium phosphates (PHOS-NAK) 280-160-250 MG packet 2 packet (COMPLETED) 2 packet, Oral, Once, On Fri01/31/25 at 0515, For 1 dose, Take with full glass of water 0552 (Given - Provider: Evita Coelho RN) potassium chloride (KLOR-CON M20) CR tablet 40 mEq (COMPLETED) 40 mEq, Oral, Every 4 Hours, First dose on Fri01/31/25 at 0515, For 2 doses, Do not crush or chew the capsules or tablets. The drug may not work as designed if the capsule or tablet is crushed or chewed. Swallow whole. Take with food. 0553 (Given - Provider: Evita Coelho RN)0840 (Given - Provider: Wes De La Cruz RN) ProSource No Carb oral solution 30 mL (CANCELED) 30 mL, Oral, 2 Times Daily, First dose (after last modification) on Fri01/30/25 at 2100 0834 (Not Given - Provider: Wes De La Cruz RN - Reason: Other - Comment: no NG tube, not on TF)2008 (Canceled Entry - Provider: Carrie Prieto, ALISA) 09 (Given - Provider: Milli Chowdary, ALISA) sennosides-docusate (PERICOLACE) 8.6-50 MG per tablet 2 tablet(Linked Group 2) 2 tablet, Oral, 2 Times Daily, First dose on Fri01/26/25 at 2100, HOLD MEDICATION IF PATIENT HAS HAD BOWEL MOVEMENT. Start bowel management regimen if patient has not had a bowel movement after 12 hours. 0834 (Not Given - Provider: Wes De La Cruz RN - Reason: Patient/family refused)2007 (Given - Provider: Carrie Prieto, ALISA) 09 (Hold - Provider: Milli Chowdary, ALISA - Reason: Other (Comment Required) - Comment: loose stool)2111 (Not Given - Provider: Shantel Gardner RN - Reason: Patient/family refused) 42 (Not Given - Provider: Rogelio Melvin RN - Reason: Patient/family refused) sodium chloride 7 % nebulizer solution nebulizer solution 4 mL 4 mL, Nebulization, Daily - RT, First dose on Fri02/01/25 at 0930, For 3 doses, Include Respiratory Treatment Education CAUTION: Hypertonic 0913 (Given - Provider: Washington Santos, FIRE CONTROL TECHNICIAN) 0757 (Given - Provider: Ani Moreno, FIRE CONTROL TECHNICIAN)0930 (Canceled Entry - Provider: Ani Moreno RRT) sodium phosphates 15 mmol in sodium chloride 0.9 % 250 mL infusion (COMPLETED) 15 mmol, Intravenous, Administer over 3 Hours, Once, On Fri01/31/25 at 1900, For 1 dose 2008 (New Bag - Provider: Carrie Prieto, ALISA) PRN Medication Order 01/31/2025 02/01/2025 02/02/2025 acetaminophen (TYLENOL) tablet 650 mg 650 mg, Oral, Every 6 Hours PRN, Fever, Starting on Fri01/30/25 at 0113, If given for fever, use fever parameter: fever greater than 100.4 F Based on patient request - if ordered for moderate or severe pain, provider allows for administration of a medication prescribed for a lower pain scale. Do not exceed 4 grams of acetaminophen in a 24 hr period. Max dose of 2gm for AST/ALT greater than 120 units/L. If given for pain, use the following pain scale: Mild Pain = Pain Score of 1-3, CPOT 1-2 Moderate Pain = Pain Score of 4-6, CPOT 3-4 Severe Pain = Pain Score of 7-10, CPOT 5-8 bisacodyl (DULCOLAX) EC tablet 5 mg(Linked Group 2) 5 mg, Oral, Daily PRN, Constipation, Use if polyethylene glycol is ineffective, Starting on Fri01/26/25 at 1457, Use if no bowel movement after 12 hours. Swallow whole. Do not crush, split, or chew tablet. bisacodyl (DULCOLAX) suppository 10 mg(Linked Group 2) 10 mg, Rectal, Daily PRN, Constipation, Use if bisacodyl oral is ineffective, Starting on Fri01/26/25 at 1457, Use if no bowel movement after 12 hours. Hold for diarrhea Calcium Replacement - Follow Nurse / BPA Driven Protocol Open Order & Select [facility] Electrolyte Replacement Protocol Algorithm to View Details dextrose (D50W) (25 g/50 mL) IV injection 25 g 25 g, Intravenous, Every 15 Minutes PRN, Low Blood Sugar, Blood Sugar Less Than 70, Starting on Fri01/26/25 at 1458, Blood sugar less than 70; patient has IV access - Unresponsive, NPO or Unable To Safely Swallow dextrose (GLUTOSE) oral gel 15 g 15 g, Oral, Every 15 Minutes PRN, Low Blood Sugar, Blood sugar less than 70, Starting on Fri01/26/25 at 1458, BS<70, Patient Alert, Is not NPO, Can safely swallow. glucagon (GLUCAGEN) injection 1 mg 1 mg, Intramuscular, Every 15 Minutes PRN, Low Blood Sugar, Blood Glucose Less Than 70, Starting on Fri01/26/25 at 1458, Blood Glucose Less Than 70 - Patient Without IV Access - Unresponsive, NPO or Unable To Safely Swallow Reconstitute powder for injection by adding 1 mL of knotter hand-supplied sterile diluent or sterile water for injection to a vial containing 1 mg of the drug, to provide solutions containing 1 mg/mL. Shake vial gently to dissolve. ipratropium-albuterol (DUO-NEB) nebulizer solution 3 mL 3 mL, Nebulization, Every 4 Hours PRN, Wheezing, Shortness of Air, Starting on Fri01/28/25 at 1154 0743 (Given - Provider: Tania Erickson, GEAR HOBBER SET UP OPERATOR)1243 (Given - Provider: Taj Lopez, FIRE CONTROL TECHNICIAN)2033 (Given - Provider: Indio Mcagrry, FIRE CONTROL TECHNICIAN) 0912 (Given - Provider: Washington Santos, FIRE CONTROL TECHNICIAN)1938 (Given - Provider: Tierra Nassar, FIRE CONTROL TECHNICIAN) 0757 (Given - Provider: Ani Moreno, FIRE CONTROL TECHNICIAN)1409 (Not Given - Provider: Ani Moreno, FIRE CONTROL TECHNICIAN - Reason: Patient/family refused) labetalol (NORMODYNE,TRANDATE) injection 20 mg 20 mg, Intravenous, Every 4 Hours PRN, High Blood Pressure, Starting on Fri01/29/25 at 0119, As needed for SBP greater than 160 Give IV Push over 2 minutes. Magnesium Cardiology Dose Replacement - Follow Nurse / BPA Driven Protocol Open Order & Select S Electrolyte Replacement Protocol Algorithm to View Details nitroglycerin (NITROSTAT) SL tablet 0.4 mg 0.4 mg, Sublingual, Every 5 Minutes PRN, Chest Pain, Starting on Fri01/26/25 at 1457, If Pain Unrelieved After 3 Doses Notify MD May administer up to 3 doses per episode. Hold if SBP less than 100. ondansetron (ZOFRAN) injection 4 mg 4 mg, Intravenous, Every 6 Hours PRN, Nausea, Vomiting, Starting on Fri01/28/25 at 1715, If multiple N/V medications ordered, use in the following order: Ondansetron, Prochlorperazine, Promethazine. Use PO unless patient refuses or patient unable to swallow. Phosphorus Replacement - Follow Nurse / BPA Driven Protocol Open Order & Select [facility] Electrolyte Replacement Protocol Algorithm to View Details polyethylene glycol (MIRALAX) packet 17 g(Linked Group 2) 17 g, Oral, Daily PRN, Constipation, Use if senna-docusate is ineffective, Starting on Fri01/26/25 at 1457, Use if no bowel movement after 12 hours. Mix in 6-8 ounces of water. Use 4-8 ounces of water, tea, or juice for each 17 gram dose. 0400 (Not Given - Provider: Evita Coelho RN - Reason: Patient/family refused) Potassium Replacement - Follow Nurse / BPA Driven Protocol Open Order & Select [facility] Electrolyte Replacement Protocol Algorithm to View Details sodium chloride 0.9 % flush 10 mL 10 mL, Intravenous, As Needed, Line Care, Starting on Fri01/26/25 at 1457 Linked Groups Order Group 1: aspirin chewable tablet 81 mgJump to med 81 mg, Oral, Daily, First dose on Fri01/27/25 at 0900, If patient fails dysphagia, [place] option MUST be given. Do not exceed 4 grams of aspirin in a 24 hr period. If given for pain, use the following pain scale: Mild Pain = Pain Score of 1-3, CPOT 1-2 Moderate Pain = Pain Score of 4-6, CPOT 3-4 Severe Pain = Pain Score of 7-10, CPOT 5-8 Or aspirin suppository 300 mg (CANCELED) 300 mg, Rectal, Daily, First dose on Diane 01/27/25 at 0900, If patient fails dysphagia, [place] option MUST be given. Do not exceed 4 grams of aspirin in a 24 hr period. If given for pain, use the following pain scale: Mild Pain = Pain Score of 1-3, CPOT 1-2 Moderate Pain = Pain Score of 4-6, CPOT 3-4 Severe Pain = Pain Score of 7-10, CPOT 5-8 Group 2: sennosides-docusate (PERICOLACE) 8.6-50 MG per tablet 2 tabletJump to med 2 tablet, Oral, 2 Times Daily, First dose on Fri01/26/25 at 2100, HOLD MEDICATION IF PATIENT HAS HAD BOWEL MOVEMENT. Start bowel management regimen if patient has not had a bowel movement after 12 hours. And polyethylene glycol (MIRALAX) packet 17 gJump to med 17 g, Oral, Daily PRN, Constipation, Use if senna-docusate is ineffective, Starting on Fri01/26/25 at 1457, Use if no bowel movement after 12 hours. Mix in 6-8 ounces of water. Use 4-8 ounces of water, tea, or juice for each 17 gram dose. And bisacodyl (DULCOLAX) EC tablet 5 mgJump to med 5 mg, Oral, Daily PRN, Constipation, Use if polyethylene glycol is ineffective, Starting on Fri01/26/25 at 1457, Use if no bowel movement after 12 hours. Swallow whole. Do not crush, split, or chew tablet. And bisacodyl (DULCOLAX) suppository 10 mgJump to med 10 mg, Rectal, Daily PRN, Constipation, Use if bisacodyl oral is ineffective, Starting on Fri01/26/25 at 1457, Use if no bowel movement after 12 hours. Hold for diarrhea documented in this encounter Care Teams Municipal Firefighter Relationship Specialty Start Date End Date Provider, [place] [address] PCP - General 01/26/25 documented as of this encounter
--- OUTSIDE RECORDS SUMMARY | 2025-02-18 11:33 | XMS_ITS | Encounter Summary ---
Author Organization [facility] Address [address] [place] [id number] Care Team Providers Care Pick Pack Worker Name Role Phone Provider, No Known Primary Care Provider Unavail able Encounter Details Date Type Department Care Team (Latest Contact Info) Description 01/26/2025 Travel Social History Tobacco Use Types Packs/Day Years [...] Answer Date Recorded Current Living Arrangements home 12/2024 Potentially Unsafe Housing Conditions Not on surinder e 01/27/2025 Family and Community Support Answer Jarrod e [...] or training? Not on file Preferred Language Maltese 01/27/2025 Sex and Gender Information Value Date Recorded Sex Assigned at Not on file Legal Sex Male 9:35 AM EST Gender Identity Not on file Sexual Orientation Not on file documented as of this encounter Functional Status * Calculated C-SSRS Risk Score (Lifetime/Recent) Answer Date of Assessment Author No Risk Indicated 01/26/2025 1:25 PM EDT Andreea Harden RN * [place] Suicide Severity Rating Scale (Screener/Recent Self-Report) Question Answer Date of Assessment Author 1. Wish to be (Past 1 Month) No 025 1:25 PM MERLET Andreea Harden, ALISA 2. Non-Specific Active Suici bradley Thoughts (Past 1 Month) No 01/26/2025 1:25 PM EDT Anton Harden, ALISA 6. Suicidal Behavior (Lifetime) No 1:25 PM MERLET Andreea Harden, ALISA documented as of this encounter Plan of Treatment Not on file documented as of this encounter Visit Diagnoses Not on filedocumented in this encounter Care Teams Pick Pack Worker Relationship Specialty Start Date End Date Provider, No Known [facility] [place] [address] PCP - General 01/26/25 documented as of this encounter
--- OUTSIDE RECORDS SUMMARY | 2025-02-18 11:33 | XMS_ITS | Clinical Summary ---
Author Organization [facility] Address [address] [place] [address] Care Team Providers Care Knot Bumper Name Role Phone Ifeanyi Carlos MD Primary Care Provider [phone] Social History Tobacco Use Types Packs/Day Years Used Date Smoking Tobacco: Never Assessed Sex and Gender Information Value Date Recorded Sex Assigned at Not on file Legal Sex Male 7:29 PM EDT Gender Identity Not on file Sexual Orientation Not on file Plan of Treatment Health Maintenance Due Date Last Done Comments [facility]-Depression Screening 1957 [facility]-Infant/Child/Adol SDOH Screenings 1957 [facility]- SDOH Screenings 1975 [facility]-Adult SDOH Screenings 1975 [facility]-DTaP,Tdap,and Td Vaccine s (1 - Tdap) 1976 CT Colonography 2002 Colonoscopy 2002 FIT-DNA 2002 FIT 2002 FOBT 2002 Sigmoidoscopy 2002 [facility]-Colorectal Cancer Screening 2002 [facility]-Pneumococcal Vaccine: 50 + Years (1 of 1 - PCV) 2007 [facility]-Zoster Vaccines (2 of 2) 12/08/2018 10/13/2018 [id number] Vaccine (1 - 20 24-25 season) 2024 [facility]-Influenza Vaccine (#1) 2025 [facility]-RSV Vaccine: 60+ Years o r [...] age to complete this topic Care Teams Knot Bumper Relationship Specialty Start Date End Date Ifeanyi Carlos MD [address] [place] [address] PCP - General 11/03/20
--- OUTSIDE RECORDS SUMMARY | 2025-02-18 11:34 | XMS_ITS | Encounter Summary ---
[facility] Organization [facility] Address [address] [place] [address] Care Team Providers Care Assembler Semiconductor Name Role Phone Provider, No Known Primary Care Provider Unavail able Encounter Details Date Type Department Care Team (Late st Contact Info) Description 02/03/2025 Readmission Management [facility] [address] [place] [id number] Jocy Eaton Social History Tobacco Use Types Packs/Day Years [...] or training? Not on file Preferred Language Tajik 01/27/2025 Sex and Gender Information Value Date Recorded Sex Assigned at Not on file Legal Sex Male 9:35 AM EST Gender Identity Not on file Sexual Orientation Not on file documented as of this encounter Miscellaneous Notes * Outreach Note - Jocy Eaton - 02/03/2025 7:44 AM EDT Prep Survey Flowsheet Row Responses [facility] patient discharged from? [place] Is LACE score less than 10 ? No Eligibility Readm Mgmt Discharge diagnosis Encephalopathy Does the patient have one of the following disease processes/diagnoses(primary or secondary)? Other Does the patient have Home health ordered? Yes What is the Home health agency? [facility] Is there a DME ordered? No Prep survey completed? Yes Jocy Alberto - Coordinator documented in this encounter Plan of Treatment Not on file documented as of this encounter Visit Diagnoses Not on filedocumented in this encounter Care Teams Assembler Semiconductor Relationship Specialty Start Date End Date Provider, No Known [facility] [place] [address] PCP - General 01/26/25 documented as of this encounter
--- OUTSIDE RECORDS SUMMARY | 2025-02-18 11:35 | XMS_ITS | Encounter Summary ---
[facility] Organization [facility] Address [address] [place] [address] Care Team Providers Care Pricing Supervisor Name Role Phone Provider, No Known Primary Care Provider Unavail able Encounter Details Date Type Department Care Team (Late st Contact Info) Description 02/04/2025 Readmission Management [facility] [address] [place] [phone] Marli Bob RN Social History Tobacco Use Types Packs/Day Years [...] or training? Not on file Preferred Language Japanese 01/27/2025 Sex and Gender Information Value Date Recorded Sex Assigned at Not on file Legal Sex Male 9:35 AM EST Gender Identity Not on file Sexual Orientation Not on file documented as of this encounter Miscellaneous Notes * Outreach Note - Marli Bob RN - 02/04/2025 9:35 AM EDT Medical Week 1 Survey Flowsheet Row Responses [facility] patient discharged from? [place] Does the patient have one of the following disease processes/diagnoses(primary or secondary)? Other Week 1 attempt successful? No Unsuccessful attempts Attempt 1 Marli Lal - Registered Nurse documented in this encounter Plan of Treatment Not on file documented as of this encounter Visit Diagnoses Not on filedocumented in this encounter Care Teams Pricing Supervisor Relationship Specialty Start Date End Date Provider, No Known [facility] [place] [address] PCP - General 01/26/25 documented as of this encounter
--- OUTSIDE RECORDS SUMMARY | 2025-02-18 11:35 | XMS_ITS | Clinical Summary ---
Author Organization [facility] Address [address] [place] [address] Care Team Providers Care Tool Smith Name Role Phone Provider, No Known Primary Care Provider Unavail able Allergies No known active allergies Medications carvedilol (COREG) 6.25 MG tablet Take 1 tablet by mouth 2 (Two) Times a Day. 1 Active clopidogrel (PLAVIX) 75 MG tablet Take 1 tablet by mouth Every Morning. Active atorvastatin (LIPITOR) 40 MG tablet Take 1 tablet by mouth Every Night. 1 Active furosemide (LASIX) 40 MG tablet Take 2 tablets by mouth Daily. Active aspirin (aspirin) 81 MG EC tablet Take 1 tablet by mouth Every Night. Active multivitamin (MULTI-VITAMIN DAILY PO) Take 1 tablet by mouth Daily. OTC Active Cholecalciferol 25 MCG (1000 UT) capsule Take 1 capsule by mouth Daily. Active empagliflozin (JARDIANCE) 25 MG tablet tablet Take 1 tablet by mouth Daily. Active metFORMIN ER (GLUCOPHAGE-XR) 500 MG 24 hr tablet Take 1 tablet by mouth 2 (Two) Times a Day With Meals. Active pantoprazole (PROTONIX) 40 MG EC tablet Take 1 tablet by mouth Every Morning for 30 days. 30 tablet 02/02/2025 1:18 PM EDT 5 03/05/20 25 Active levothyroxine (SYNTHROID, LEVOTHROID) 75 MCG tablet Take 1 tablet by mouth Every Morning for 30 days. 30 tablet 02/02/2025 1:18 PM EDT 5 03/05/20 25 Active albuterol sulfate HFA 108 (90 Base) MCG/ACT inhaler Inhale 2 puffs Every 4 (Four) Hours As Needed for Wheezing. 18 g 02/02/2025 1:18 PM EDT Active isosorbide mononitrate (IMDUR) 30 MG 24 hr tablet Take 1 tablet by mouth Daily. 02/03/20 Discontinue d(Stop Taking at Discharge) meloxicam (MOBIC) 7.5 MG tablet Take 1 tablet by mouth Daily. 02/03/20 Discontinue d(Stop Taking at Discharge) guaiFENesin (MUCINEX) 600 MG 12 hr tablet Take 1 tablet by mouth Every 12 (Twelve) Hours for 7 days. 14 tablet 02/02/2025 1:18 PM EDT 02/10/20 Active Problems Problem Noted Date Diagnosed Date Hypophosphatemia 01/31/2025 Encephalopathy, metabolic 01/31/2025 Essential hypertension 01/26/2025 Type 2 diabetes mellitus 01/26/2025 Obesity, morbid, BMI 40.0-49.9 01/26/2025 Asymptomatic stenosis of right vertebral artery 06/05/2021 Overview (06/05/2021): Added automatically from request for surgery [id number] Hyperlipidemia 10/16/2017 Resolved Problems Problem Noted Date Diagnosed Date Resolved Date Altered mental status 01/26/20252024 Encounters Date Type Department Care Team Description 02/15/2025 Readmission [facility] [address] [place] [id number] Lacey Brown, ALISA 02/04/2025 Readmission Management [facility] [address] [place] [address] Marli Bob RN 02/03/2025 Readmission Management [facility] [address] [place] [address] Jocy Eaton 01/26/2025 11:34 AM EDT - 02/02/2025 1:30 PM EDT Hospital Encounter [address] [place] [id number] Daniel Ocampo MD Tzouanakis, Alexander E, MD Goldstein, Joshua, MD Russell, Mario Owusu MD Altered mental status, unspecified altered mental status type (Primary Dx); Acute encephalopathy; Acute respiratory failure, unspecified whether with hypoxia or hypercapnia; Dysphagia, unspecified type; Obesity, morbid, BMI 40.0-49.9; Encephalopathy, metabolic; Hypophosphatemia; Transient alteration of awareness; Essential hypertension; Asymptomatic stenosis of right vertebral artery Discharge Disposition: [place]-Health [place] [facility] [place] Travel from Last 3 Months Family History Relation Name Status Comments Father Mother Social History Tobacco Use Types Packs/Day Years [...] or training? Not on file Preferred Language Haitian 01/27/2025 Sex and Gender Information Value Date Recorded Sex Assigned at Not on file Legal Sex Male 9:35 AM EST Gender Identity Not on file Sexual Orientation Not on file Last Filed Vital Signs Vital Sign Reading [...] Mass Index 45.44 01/27/2025 6:00 AM EDT Plan of Treatment Health Maintenance Due Date Last Done Comments DIABETIC EYE EXAM 1967 DIABETIC FOOT EXAM 1967 URINE MICROALBUMIN-CREATININE RATIO (uACR) 1967 TDAP/TD VACCINES (1 - Tdap) 1976 COLOGUARD 2002 COLON CANCER SCREENING 5 YEA R SIGMOIDOSCOPY 2002 COLONOSCOPY 2002 [address]AL CANCER SCREENING 2002 CT COLONOGRAPHY 2002 FECAL OCCULT BLOOD TEST 2002 FIT Testing (1 year) 2002 ANNUAL WELLNESS VISIT 06/04/2021 HEPATITIS C SCREENING 06/04/2021 COVID-19 Vaccine ( season) 2024 INFLUENZA VACCINE 03/23/2025 HEMOGLOBIN A1C 07/30/2025 01/27/2025 LIPID PANEL 01/27/2026 01/27/2025 Pneumococcal Vaccine 50+ Completed 12/01/2024 ZOSTER VACCINE Completed 12/01/2024, 10/13/2018 AAA SCREEN ONCE Completed 01/26/2025 Procedures Procedure Name Priority Date/Time Associated Diagnosis Comments MAGNESIUM Routine 02/02/2025 9:58 AM EDT PHOSPHORUS Routine 02/02/2025 9:58 AM EDT BASIC METABOLIC PANEL Routine 02/02/2025 9:58 AM EDT CBC AND DIFFERENTIAL Routine 02/02/2025 8:50 AM EDT CBC WITH AUTO DIFFERENTIAL Routine 02/02/2025 8:50 AM EDT XR CHEST 1 VW Routine 02/02/2025 4:26 AM EDT OSCILLATING POSITIVE EXPIRATORY PRESSURE (OPEP) Routine 02/01/2025 8:39 AM EDT XR CHEST 1 VW Routine 02/01/2025 6:28 AM EDT CBC AND DIFFERENTIAL Routine 02/01/2025 4:46 AM EDT CBC WITH AUTO DIFFERENTIAL Routine 02/01/2025 4:46 AM EDT MAGNESIUM Routine 02/01/2025 4:46 AM EDT BASIC METABOLIC PANEL Routine 02/01/2025 4:46 AM EDT PHOSPHORUS Timed 02/01/2025 4:46 AM EDT POTASSIUM Timed 01/31/2025 12:59 PM EDT PHOSPHORUS Timed 01/31/2025 12:59 PM EDT XR CHEST 1 VW Routine 01/31/2025 6:05 AM EDT CBC AND DIFFERENTIAL Routine 01/31/2025 3:16 AM EDT CBC WITH AUTO DIFFERENTIAL Routine 01/31/2025 3:16 AM EDT MAGNESIUM Routine 01/31/2025 3:16 AM EDT PHOSPHORUS Routine 01/31/2025 3:16 AM EDT BASIC METABOLIC PANEL Routine 01/31/2025 3:16 AM EDT XR CHEST 1 VW Routine 01/30/2025 5:15 AM EDT CBC AND DIFFERENTIAL Routine 01/30/2025 3:41 AM EDT T4, FREE Add-On 01/30/2025 3:41 AM EDT TSH Add-On 01/30/2025 3:41 AM EDT CBC WITH AUTO DIFFERENTIAL Routine 01/30/2025 3:41 AM EDT MAGNESIUM Routine 01/30/2025 3:41 AM EDT PHOSPHORUS Routine 01/30/2025 3:41 AM EDT BASIC METABOLIC PANEL Routine 01/30/2025 3:41 AM EDT POCT GLUCOSE FINGERSTICK Routine 01/29/2025 7:09 AM EDT POCT GLUCOSE FINGERSTICK Routine 01/29/2025 6:15 AM EDT XR CHEST 1 VW Routine 01/29/2025 5:22 AM EDT CBC AND DIFFERENTIAL Routine 01/29/2025 3:57 AM EDT CBC WITH AUTO DIFFERENTIAL Routine 01/29/2025 3:57 AM EDT MAGNESIUM Routine 01/29/2025 3:57 AM EDT PHOSPHORUS Routine 01/29/2025 3:57 AM EDT BASIC METABOLIC [...] GLUCOSE FINGERSTICK Routine 01/28/2025 5:05 AM EDT COMPREHENSIVE METABOLIC PANEL Add-On 01/28/2025 4:17 AM EDT C-REACTIVE PROTEIN Routine 01/28/2025 4: 17 AM EDT PREALBUMIN Routine 01/28/2025 4:17 AM EDT MAGNESIUM Routine 01/28/2025 4:17 AM EDT PHOSPHORUS Routine 01/28/2025 4:17 AM EDT BLOOD GAS, ARTERIAL [...] W/CO-OXIMETRY Routine 01/27/2025 3:29 AM EDT CBC AND DIFFERENTIAL Routine 01/27/2025 3:12 AM EDT CBC WITH AUTO DIFFERENTIAL Routine 01/27/2025 3:12 AM EDT LIPID PANEL Routine 01/27/2025 3:12 AM EDT HEMOGLOBIN A1C Routine 01/27/2025 3:12 AM EDT PHOSPHORUS Routine 01/27/2025 3:12 AM EDT MAGNESIUM Routine 01/27/2025 3:12 AM EDT COMPREHENSIVE METABOLIC PANEL Routine 01/27/2025 3:12 AM EDT POCT GLUCOSE FINGERSTICK Routine 01/26/2025 11:39 PM EDT MRI BRAIN WO CONTRAST Routine 01/26/2025 11:17 PM EDT CORTISOL Routine 01/26/2025 8:58 PM EDT ECHO COMPLETE W/ DOPPLER, COLOR FLOW AND CONTRAST Routine 01/26/2025 5:55 PM EDT BH ED INTUBATION Routine 01/26/2025 5:27 PM EDT ND CRITICAL CARE ILL/INJURED PATIENT INIT 30-74 MIN Routine 01/26/2025 5:25 PM EDT POCT GLUCOSE FINGERSTICK Routine 01/26/2025 4:39 PM EDT EEG AWAKE OR DROWSY PORTABLE STAT 01/26/2025 3:42 PM EDT BLOOD GAS, ARTERIAL W/CO-OXIMETRY Routine 01/26/2025 3:17 PM EDT URINALYSIS, MICROSCOPIC ONLY STAT 01/26/2025 1:53 PM EDT FENTANYL, URINE STAT 01/26/2025 1:53 PM EDT HIGH SENSITIVITIY TROPONIN T 1HR STAT 01/26/2025 1:53 PM EDT URINE DRUG SCREEN STAT 01/26/2025 1:5 3 PM EDT URINALYSIS W/ CULTURE IF INDICATED STAT 01/26/2025 1:[address] ANGIOGRAM NECK STAT 01/26/2025 1:[address] CEREBRAL PERFUSION W WO CONTRAST STAT 01/26/2025 1:[address] ANGIOGRAM HEAD W AI ANALYSIS OF LVO STAT 01/26/2025 1:[address] ABDOMEN PELVIS W CONTRAST STAT 01/26/2025 1:[address] ANGIOGRAM CHEST PULMONARY EMBOLISM STAT 01/26/2025 1:[address] HEAD WO CONTRAST STAT 01/26/2025 1 2:59 PM EDT SCANNED - TELEMETRY 01/26/2025 1 2:18 PM EDT ECG 12-LEAD STAT 01/26/2025 12:15 PM EDT XR CHEST 1 VW STAT 01/26/2025 12:08 PM EDT RESPIRATORY PANEL PCR W/ COVID-19 (SARS-COV-2), 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 UTM/VTP, 2 HR TAT STAT 01/26/2025 12:06 PM EDT AMMONIA STAT 01/26/2025 12:02 PM EDT BLOOD CULTURE STAT 01/26/2025 12:00 PM EDT POCT PTG-[id number]-[id number]-CR-HB-H CT STAT 01/26/2025 11:48 AM EDT LIGHT BLUE TOP STAT 01/26/2025 11:42 AM EDT ESCUDERO TOP STAT 01/26/2025 11:42 AM EDT GOLD TOP - SST STAT 01/26/2025 11:42 AM EDT LAVENDER TOP STAT 01/26/2025 11:42 AM EDT DK GREEN TOP STAT 01/26/2025 11:42 AM EDT CBC AND DIFFERENTIAL STAT 01/26/2025 11:42 AM EDT T4, FREE STAT 01/26/2025 11:42 AM EDT TSH RFX ON ABNORMAL TO FREE T4 STAT 01/26/2025 11:42 AM EDT SALICYLATE LEVEL STAT 01/26/2025 11:4 2 AM EDT ETHANOL STAT 01/26/2025 11:42 AM EDT ACETAMINOPHEN LEVEL STAT 01/26/2025 1 1:42 AM EDT PROCALCITONIN STAT 01/26/2025 11:42 AM EDT LACTIC ACID, PLASMA STAT 01/26/2025 1 1:42 AM EDT B-TYPE NATRIURETIC PEPTIDE STAT 01/26/2025 11:42 AM EDT CBC WITH AUTO DIFFERENTIAL STAT 01/26/2025 11:42 AM EDT MAGNESIUM STAT 01/26/2025 11:42 AM EDT TROPONIN STAT 01/26/2025 11:42 AM EDT COMPREHENSIVE METABOLIC PANEL STAT 01/26/2025 11:42 AM EDT RAINBOW DRAW STAT 01/26/2025 11:42 AM EDT BLOOD CULTURE STAT 01/26/2025 11:30 AM EDT from Last 3 Months Results * (ABNORMAL) Phosphorus (02/02/2025 9:58 AM EDT) Only the most recent of8 resultswithin the time period is included. [facility] Phosphorus 2.4(L) 2.5 - 4.5 mg/dL 02/02/2025 11:00 AM EDT [facility] Blood Venipuncture / Unknown 02/02/2025 9:58 AM EDT 02/02/2025 10:20 AM EDT us Heron Abdul MD LAB BLOOD ORDERABLES Final R esult [facility]
[address] [place] [address], * Magnesium (02/02/2025 9:58 AM EDT) Only the most recent of8 resultswithin the time period is included. [facility] Magnesium 2.1 1.6 - 2.4 mg/dL 02/02/2025 11:00 AM EDT [facility] Blood Venipuncture / Unknown 02/02/2025 9:58 AM EDT 02/02/2025 10:20 AM EDT Heron Abdul MD LAB BLOOD ORDERABLES Final R esult [facility]
[address] [place] [address], * (ABNORMAL) Basic Metabolic Panel (02/02/2025 9:58 AM EDT) Only the most recent of5 resultswithin the time period is included. Glucose 143(H) 65 - 99 mg/dL 02/02/2025 11:00 AM EDT [facility] BUN 8.6 8.0 - 23.0 mg/dL 02/02/2025 11:00 AM EDT [facility] Creatinine 0.61(L) 0.76 - 1.27 mg/dL 02/02/2025 11:00 AM EDT [facility] Sodium 140 136 - 145 mmol/L 02/02/2025 11:00 AM EDT [facility] Potassium 3.7 3.5 - 5.2 mmol/L 02/02/2025 11:00 AM EDT [facility] Chloride 106 98 - 107 mmol/L 02/02/2025 11:00 AM EDT [facility] CO2 23.5 22.0 - 29.0 mmol/L 02/02/2025 11:00 AM EDT [facility] Calcium 9.0 8.6 - 10.5 mg/dL 02/02/2025 11:00 AM EDT [facility] BUN/Creatinine Ratio 14.1 7.0 - 25.0 02/02/2025 11:00 AM EDT [facility] Anion Gap 10.5 5.0 - 15.0 mmol/L 02/02/2025 11:00 AM EDT [facility] eGFR 105.3 >60.0 mL/min/1.7 3 02/02/2025 11:00 AM EDT [facility] Blood Venipuncture / Unknown 02/02/2025 9:58 AM EDT 02/02/2025 10:20 AM EDT Narrative [facility] - 02/02/2025 11:00 AM EDT GFR [...] MD LAB BLOOD ORDERABLES Final R esult [facility]
[address] [place] [address], * (ABNORMAL) CBC Auto Differential (02/02/2025 8:50 AM EDT) Only the most recent of8 resultswithin the time period is included. WBC 6.20 3.40 - 10.80 10*3/mm3 02/02/2025 9:17 AM EDT [facility] RBC 4.20 4.14 - 5.80 10*6/mm3 02/02/2025 9:17 AM EDT [facility] Hemoglobin 14.1 13.0 - 17.7 g/dL 02/02/2025 9:17 AM EDT [facility] Hematocrit 40.5 37.5 - 51.0 % 02/02/2025 9:17 AM EDT [facility] MCV 96.4 79.0 - 97.0 fL 02/02/2025 9:17 AM EDT [facility] MCH 33.6(H) 26.6 - 33.0 pg 02/02/2025 9:17 AM [facility] MCHC 34.8 31.5 - 35.7 g/dL 02/02/2025 9:17 AM [facility] RDW 12.9 12.3 - 15.4 % 02/02/2025 9:17 AM [facility] RDW-SD 45.5 37.0 - 54.0 fl 02/02/2025 9:17 AM [facility] MPV 9.6 6.0 - 12.0 fL 02/02/2025 9:17 AM [facility] Platelets 143 140 - 450 10*3/mm3 02/02/2025 9:17 AM [facility] Neutrophil % 52.0 42.7 - 76.0 % 02/02/2025 9:17 AM [facility] Lymphocyte % 30.3 19.6 - 45.3 % 02/02/2025 9:17 AM [facility] Monocyte % 10.3 5.0 - 12.0 % 02/02/2025 9:17 AM [facility] Eosinophil % 3.4 0.3 - 6.2 % 02/02/2025 9:17 AM [facility] Basophil % 0.6 0.0 - 1.5 % 02/02/2025 9:17 AM [facility] Immature Grans % 3.4(H) 0.0 - 0.5 % 02/02/2025 9:17 AM [facility] Neutrophils, Absolute 3.22 1.70 - 7.00 10*3/mm3 02/02/2025 9:[facility] Lymphocytes, Absolute 1.88 0.70 - 3.10 10*3/mm3 02/02/2025 9:17 AM [facility] Monocytes, Absolute 0.64 0.10 - 0.90 10*3/mm3 02/02/2025 9:17 AM [facility] Eosinophils, Absolute 0.21 0.00 - 0.40 10*3/mm3 02/02/2025 9:17 AM EDT [facility] Basophils, Absolute 0.04 0.00 - 0.20 10*3/mm3 02/02/2025 9:17 AM EDT [facility] Immature Grans, Absolute 0.21(H) 0.00 - 0.05 10*3/mm3 02/02/2025 9:17 AM EDT [facility] nRBC 0.0 0.0 - 0.2 /100 WBC 02/02/2025 9:17 AM EDT [facility] Blood Venipuncture / Unknown 02/02/2025 8:50 AM EDT 02/02/2025 8:57 AM EDT us Heron Abdul MD LAB BLOOD ORDERABLES Final R esult [facility]
[address] [place] [address], * XR Chest 1 View (02/02/2025 4:26 AM EDT) Only the most recent of8 resultswithin the time period is included. Anatomical Region Laterality Modality Body N/A Radiographic Cristine ging 02/02/2025 7:40 AM EDT Impressions 02/02/2025 7:43 AM EDT Impression: No evidence of pneumonia. Electronically Signed: Zack Francois MD 02/02/2025 7:43 AM EDT Workstation ID: [id number] Narrative 02/02/2025 7:43 AM EDT XR CHEST 1 VW Date of Exam: 02/02/2025 3:10 AM EDT Indication: eval for PNA. Evaluate for pneumonia. Comparison: 02/01/2025 radiographs Findings: Unchanged cardiomediastinal silhouette. No focal airspace opacity, pleural effusion, or pneumothorax. No acute bone abnormality. Procedure Note Zack Francois MD - 02/02/2025 XR CHEST 1 VW Date of Exam: 02/02/2025 3:10 AM EDT Indication: eval for PNA. Evaluate for pneumonia. Comparison: 02/01/2025 radiographs Findings: Unchanged cardiomediastinal silhouette. No focal airspace opacity, pleuraleffusion, or pneumothorax. No acute bone abnormality. IMPRESSION: Impression: No evidence of pneumonia. Electronically Signed: Zack Francois MD 02/02/2025 7:43 AM EDT Workstation ID: [id number] Heron Abdul MD IMG DIAGNOSTIC IMAGING ORDER DANIELLA Final Result * Potassium (01/31/2025 12:59 PM EDT) Potassium 4.4 3.5 - 5.2 mmol/L 01/31/2025 1:38 PM EDT [facility] Blood Venipuncture / Unknown 01/31/2025 12:59 PM EDT 01/31/2025 1:10 PM EDT Shawn Savage APRN LAB BLOOD ORDERABLES Roxanna l Result Performing Organization Address [facility] Co de Phone Number [facility] LAB[facility]ORY
[address] [place] [address], * TSH (01/30/2025 3:41 AM EDT) TSH 1.180 0.270 - 4.200 uIU/mL 01/30/2025 2:15 PM EDT [facility] Blood Venipuncture / Unknown 01/30/2025 3:41 AM EDT 01/30/2025 4:03 AM EDT Heron Abdul MD LAB BLOOD ORDERABLES Final R esult Performing Organization Address City/[facility]/ZIP Co de Phone Number [facility] LAB[facility]ORY
[address] [place] [address], * T4, Free (01/30/2025 3:41 AM EDT) Only the most recent of2 resultswithin the time period is included. Free T4 1.16 0.92 - 1.68 ng/dL 01/30/2025 2:15 PM EDT [facility] Blood Venipuncture / Unknown 01/30/2025 3:41 AM EDT 01/30/2025 4:03 AM EDT us Heron Abdul MD LAB BLOOD ORDERABLES Final R esult [facility]
[address] [place] [address], * POC Glucose Once (01/29/2025 7:09 AM EDT) Only the most recent of12 resultswithin the time period is included. Glucose 119 70 - 130 mg/dL 01/29/2025 7:12 AM EDT [facility] Blood 01/29/2025 7:09 AM EDT 01/29/2025 7:12 AM EDT us Heron Abdul MD POINT OF CARE TEST ORDERABLE S Final Result Performing Organization Address City/[facility]/ZIP Co de Phone Number [facility] LAB[facility]ORY
[address] [place] [address], * (ABNORMAL) C-reactive Protein (01/28/2025 4:17 AM EDT) C-Reactive Protein 4.31(H) 0.00 - 0.50 mg/dL 01/28/2025 4:55 AM EDT [facility] Blood Line / Unknown 01/28/2025 4: 17 AM EDT 01/28/2025 4:23 AM EDT us Heron Abdul MD LAB BLOOD ORDERABLES Final R esult [facility]
[address] [place] [address], * (ABNORMAL) Prealbumin (01/28/2025 4:17 AM EDT) Prealbumin 17.7(L) 20.0 - 40.0 mg/dL 01/28/2025 10:09 AM EDT [facility] Blood Line / Unknown 01/28/2025 4: 17 AM EDT 01/28/2025 4:23 AM EDT Heron Abdul MD LAB BLOOD ORDERABLES Final R esult [facility]
[address] [place] [address], * (ABNORMAL) Comprehensive Metabolic Panel (01/28/2025 4:17 AM EDT) Only the most recent of3 resultswithin the time period is included. Glucose 124(H) 65 - 99 mg/dL 01/28/2025 8:51 AM EDT [facility] BUN 15.2 8.0 - 23.0 mg/dL 01/28/2025 8:51 AM EDT [facility] Creatinine 0.90 0.76 - 1.27 mg/dL 01/28/2025 8:51 AM EDT [facility] Sodium 144 136 - 145 mmol/L 01/28/2025 8:51 AM EDT [facility] Potassium 4.0 3.5 - 5.2 mmol/L 01/28/2025 8:51 AM EDT [facility] Comment:Slight hemolysis det ected by analyzer. Result may be falsely elevated. Chloride 110(H) 98 - 107 mmol/L 01/28/2025 8:51 AM EDT [facility] CO2 19.0(L) 22.0 - 29.0 mmol/L 01/28/2025 8:51 AM T [facility] Calcium 9.3 8.6 - 10.5 mg/dL 01/28/2025 8:51 AM T [facility] Total Protein 7.3 6.0 - 8.5 g/dL 01/28/2025 8:51 AM T [facility] Albumin 3.9 3.5 - 5.2 g/dL 01/28/2025 8:51 AM EDT [facility] ALT (SGPT) 28 1 - 41 U/L 01/28/2025 8:51 AM [facility] AST (SGOT) 31 1 - 40 U/L 01/28/2025 8:51 AM [facility] Alkaline Phosphatase 86 39 - 117 U/L 01/28/2025 8:51 AM [facility] Total Bilirubin 1.0 0.0 - 1.2 mg/dL 01/28/2025 8:51 AM [facility] Globulin 3.4 gm/dL 01/28/2025 8:51 AM [facility] Comment:Calculated Result A/G Ratio 1.1 g/dL 01/28/2025 8:51 AM [facility] BUN/Creatinine Ratio 16.9 7.0 - 25.0 01/28/2025 8:51 AM [facility] Anion Gap 15.0 5.0 - 15.0 mmol/L 01/28/2025 8:51 AM [facility] eGFR 93.6 >60.0 mL/min/1.7 3 01/28/2025 8:51 AM [facility] Blood Line / Unknown 01/28/2025 4: 17 AM EDT 01/28/2025 4:23 AM T [facility] - 01/28/2025 8:51 AM EDT GFR [...] MD LAB BLOOD ORDERABLES Final R esult [facility]
[address] [place] [address], * (ABNORMAL) Blood Gas, Arterial With Co-Ox (01/28/2025 3:33 AM EDT) Only the most recent of4 resultswithin the time period is included. Site Right Radial 01/28/2025 3:34 AM EDT [facility] THERAPY Michele's Test N/A 01/28/2025 3:34 AM EDT [facility] THERAPY pH, Arterial 7.430 7.350 - 7.450 pH units 01/28/2025 3:34 AM EDT [facility] THERAPY pCO2, Arterial 31.7(L) 35.0 - 45.0 mm Hg 01/28/2025 3:34 AM EDT [facility] THERAPY Comment:84 Value below refer ence range pO2, Arterial 73.6(L) 83.0 - 108.0 mm Hg 01/28/2025 3:34 AM EDT [facility] THERAPY Comment:84 Value below refer ence range HCO3, Arterial 21.0 20.0 - 26.0 mmol/L 01/28/2025 3:34 AM EDT [facility] RES[facility] THERAPY Base Excess, Arterial -2.3(L) 0.0 - 2.0 mmol/L 01/28/2025 3:34 AM EDT [facility] RES[facility]ATORY THERAPY Hemoglobin, Blood Gas 14.8 13.5 - 17.5 g/dL 01/28/2025 3:34 AM EDT [facility] RES[facility]AT[facility] THERAPY Hematocrit, Blood Gas 45.4 38.0 - 51.0 % 01/28/2025 3:34 AM T PSYCHIATRIC RESPIRATORY THERAPY Oxyhemoglobin 94.3 94 - 99 % 01/28/2025 3:34 AM T PSYCHIATRIC RESPIRATORY THERAPY Methemoglobin 0.40 0.00 - 1.50 % 01/28/2025 3:34 AM T PSYCHIATRIC RESPIRATORY THERAPY Carboxyhemoglobin 1.1 0 - 2 % 3:34 AM T PSYCHIATRIC RESPIRATORY THERAPY CO2 Content 22.0 22 - 33 mmol/L 01/28/2025 3:34 AM T PSYCHIATRIC RESPIRATORY THERAPY Temperature 37.0 01/28/2025 3:34 AM [facility] RESPIRATORY THERAPY Barometric Pressure for Blood Gas 01/28/2025 3:34 AM [facility] RESPIRATORY THERAPY Comment:N/A Modality Ventilator 01/28/2025 3:34 AM [facility] RESPIRATORY THERAPY FIO2 40 % 01/28/2025 3:34 AM [facility] RESPIRATORY THERAPY Ventilator Mode VC+/AC 3:34 AM [facility] RESPIRATORY THERAPY Set Tidal Volume 0.46 01/29/20 3:34 AM [facility] RESPIRATORY THERAPY Rate 12 Breaths/ minute 01/28/2025 3:34 AM [facility] RESPIRATORY THERAPY PEEP 7.0 01/28/2025 3:34 AM [facility] RESPIRATORY THERAPY PIP 0 cmH2O 01/28/2025 3:34 AM [facility] RESPIRATORY THERAPY Comment:Meter: [id number] Interrelated [employer] Education Teacher: [id number] IPAP 0 01/28/2025 3:34 AM [facility] RESPIRATORY THERAPY EPAP 0 01/28/2025 3:34 AM [facility] RESPIRATORY THERAPY pH, Temp Corrected 7.430 pH Units 2024 3:34 AM [facility] RESPIRATORY THERAPY pCO2, Temperature Corrected 31.7(L) 35 - 48 mm Hg 01/28/2025 3:34 AM [facility] RESPIRATORY THERAPY pO2, Temperature Corrected 73.6(L) 83 - 108 mm Hg 01/28/2025 3:34 AM EDT PSYCHIATRIC RESPIRATORY THERAPY Arterial Blood 01/28/2025 3: 33 AM EDT 01/28/2025 3:34 AM EDT us Heron Abdul MD LAB BLOOD ORDERABLES Final R esult PSYCHIATRIC RESPIRATORY THERAPY
[address] [place] [address], [place] * CT Chest Without Contrast Diagnostic (01/27/2025 [...] MD 01/28/2025 11:02 AM EDT Workstation ID: [id number] Narrative 01/28/2025 11:[address] CHEST [...] MD 01/28/2025 11:02 AM EDT Workstation ID: [id number] Julia Connors PA-C IMG CT ORDERABLES Final Result * Hemoglobin A1c (01/27/2025 3:12 AM EDT) Hemoglobin A1C 5.51 4.80 - 5.60 % 01/27/2025 4:23 AM EDT PS[facility]ATRIC LABORATORY Blood Venipuncture / Unknown 01/27/2025 3:12 AM EDT 01/27/2025 3:32 AM EDT [facility] LABORATORY - 01/27/2025 4:23 AM EDT Hemoglobin A1C Ranges: Increased Risk for Diabetes 5.7% to 6.4% Diabetes >= 6.5% Diabetic Goal < 7.0% Diana Garcia [employer] LAB BLOOD ORDERABLES Roxanna l Result PSYCHIATRIC LABORATORY
[address] [place] [address], * Lipid Panel (01/27/2025 3:12 AM EDT) Total Cholesterol 137 0 - 200 mg/dL 01/27/2025 4:02 AM EDT PSYCHIATRIC LABORATORY Triglycerides 104 0 - 150 mg/dL 01/27/2025 4:02 AM EDT PS[facility]IATRIC LABORATORY HDL Cholesterol 49 40 - 60 mg/dL 01/27/2025 4:02 AM EDT PS[facility]IATRIC LABORATORY LDL Cholesterol 69 0 - 100 mg/dL 01/27/2025 4:02 AM EDT [facility]IATRIC LABORATORY VLDL Cholesterol 19 5 - 40 mg/dL 01/27/2025 4:02 AM EDT PS[facility]IATRIC LABORATORY LDL/HDL Ratio 1.37 01/27/2025 4:02 AM EDT PSYCHIATRIC LABORATORY Blood Venipuncture / Unknown 01/27/2025 3:12 AM EDT 01/27/2025 3:33 AM EDT Narrative PSYCHIATRIC LABORATORY - 01/27/2025 4:02 AM EDT Cholesterol [...] is calculated using the NIH LDL-C calculation. Diana Garcia INDUSTRIAL SALES MANAGER LAB BLOOD ORDERABLES Roxanna foreman Result [facility]CH[facility]AT[facility]IC LABORATORY
[address] [place] [address], * MRI Brain Without Contrast (01/26/2025 11:17 [...] MD 01/27/2025 1:30 AM EDT Workstation ID: [id number] Narrative 01/27/2025 1:30 AM EDT MRI BRAIN WO [...] MD 01/27/2025 1:30 AM EDT Workstation ID: [id number] Diana C Jose [place] IMG MRI ORDERABLES Final Result * Cortisol (01/26/2025 8:58 PM EDT) [facility] Cortisol 6.77 mcg/dL 01/26/2025 9:34 PM EDT PS[facility]IATRIC LABORATORY Blood Venipuncture / Unknown 01/26/2025 8:58 PM EDT 01/26/2025 9:05 PM EDT Narrative PS[facility]CHIATRIC LABORATORY - 01/26/2025 9:34 PM EDT Cortisol Reference Ranges: Cortisol 6AM - 10AM Range: 6.02-18.40 mcg/dl Cortisol 4PM - 8PM Range: 2.68-10.50 mcg/dl Results may be falsely increased if patient taking Biotin. Heron Abdul MD LAB BLOOD ORDERABLES Final R esult PSYCHIATRIC LABORATORY
[address] [place] [address], * ECHO COMPLETE W/ DOPPLER, COLOR FLOW AND CONTRAST (01/26/2025 5:55 PM EDT) Pathologist [facility] [place] EF(MOD-bp) 79.5 % LVIDd 3.4 cm LVIDs [...] % EF(MOD-sp4) 82.5 % MV E max capo 61.7 cm/sec MV A max capo 69.4 cm/sec MV dec time 0.27 sec MV E/A 0.89 IVRT 106.0 ms LA ESV Index (BP) 20.9 ml/m2 Med Peak E' Capo 7.7 cm/sec Lat Peak E' Capo 11.3 cm/sec Avg E/e' ratio 6.49 SV(LVOT) 94.3 ml RV Base 3.4 cm RV Mid 2.8 cm RV Length 8.4 cm TAPSE (>1.6) 2.8 cm RV S' 13.3 cm/sec LA dimension (2D) 3.8 cm LV V1 max 126.8 cm/sec LV V1 max PG 6.4 mmHg LV V1 mean PG 3.4 mmHg LV V1 VTI 26.9 cm Ao pk capo 156.7 cm/sec Ao max PG 9.8 mmHg [...] image enhancer was noted. Diana C Jose INDUSTRIAL SALES MANAGER CV ECHO ORDERABLES Final Result * ED [...] PROCEDURE/MINOR SURGICAL O RDERABLES Final Result * ND CRITICAL CARE ILL/INJURED PATIENT INIT 30-74 MIN (01/26/2025 5:25 PM EDT) Narrative Daniel Ocampo MD - 01/26/2025 5:25 PM EDT Daniel Ocampo MD 01/26/2025 5:33 PM Critical Care Performed by: Daniel Ocampo MD Authorized by: Daniel Ocampo MD Critical care provider statement: Critical care time (minutes): 41 Critical care was necessary to treat or prevent imminent or life-threatening deterioration of the following conditions: TOP COATER failure or compromise Critical care was time [...] PROCEDURE/MINOR SURGICAL O RDERABLES Final Result * EEG AWAKE OR DROWSY PORTABLE (01/26/2025 3:42 PM EDT) Impressions NEUROLOGY - 01/26/2025 4:25 PM EDT Diffuse cerebral dysfunction of mild degree, most commonly seen due to toxic/metabolic or hypoxemic cause No evidence for epilepsy is seen This report is transcribed using the Lot18 dictation system. Narrative NEUROLOGY - 01/26/2025 4:25 [...] generalized slow No epileptiform activity is present Result [facility] Diana Garcia INDUSTRIAL SALES MANAGER NEUROLOGY ORDERABLES Roxanna foreman Result NEUROLOGY * High Sensitivity Troponin T 1Hr (01/26/2025 1:53 PM EDT) HS Troponin T 11 <22 ng/L 01/26/2025 2:30 PM EDT PS[facility]IATRIC LABORATORY Troponin T Numeric Delta 0 Abnormal if >/=3 ng/L 01/26/2025 2:30 PM EDT [facility] LAB[facility] Blood Line / Unknown 01/26/2025 1: 53 PM EDT 01/26/2025 1:59 PM EDT Narrative PSYCHIATRIC LABORATORY - 01/26/2025 2:30 PM EDT High [...] BLOOD ORDERABLES Final Result Performing Organization Address [facility]/ZIP Co de Phone Number PSYCHIATRIC LABORATORY
[address] [place] [address], * (ABNORMAL) Urinalysis, Microscopic Only - Indwelling Urethral Catheter (01/26/2025 1:53 PM EDT) RBC, UA 3-5(A) None Seen, 0-2 /HPF 01/26/2025 2:28 PM EDT [facility] WBC, UA 3-5(A) None Seen, 0-2 /HPF 01/26/2025 2:28 PM EDT [facility] LAB[facility] Comment:Urine culture not in dicated. Bacteria, UA None Seen None Seen /HPF 01/26/2025 2:28 PM EDT [facility] LAB[facility] Squamous Epithelial Cells, UA 0-2 None Seen, 0-2 /HPF 01/26/2025 2:28 PM EDT [facility] Hyaline Casts, UA 0-2 None Seen /LPF 01/26/2025 2:28 PM EDT [facility] LAB[facility] Methodology Automated Microscopy 01/26/2025 2:28 PM EDT [facility] LAB[facility] Urine (Indwelling Urethral Catheter) Collection / Unknown 01/26/2025 1:53 PM EDT 01/26/2025 2:15 PM EDT Daniel Ocampo MD URINE ORDERABLES Final Res ult Performing Organization Address [facility]/ZIP Co de Phone Number PSYCHIATRIC LABORATORY
[address] [place] [address], * (ABNORMAL) Urinalysis With Culture If Indicated - Indwelling Urethral Catheter (01/26/2025 1:53 PM EDT) Color, UA Yellow Yellow, Straw 01/26/2025 2:28 PM EDT [facility] Appearance, UA Clear Clear 01/26/2025 2:28 PM EDT [facility] pH, UA 6.0 5.0 - 8.0 01/26/2025 2:28 PM EDT PS[facility]IAT[facility]IC LABORATORY Specific [place], UA >1.030(H) 1.005 - 1.030 01/26/2025 2:28 PM EDT [facility] LAB[facility] Glucose, UA >=1000 mg/dL (3+)(A) Negative 01/26/2025 2:28 PM EDT [facility] LAB[facility] Ketones, UA Negative Negative 01/26/2025 2:28 PM EDT [facility] LAB[facility] Bilirubin, UA Negative Negative 01/26/2025 2:28 PM EDT [facility] LAB[facility] Blood, UA Trace(A) Negative 01/26/2025 2:28 PM EDT [facility] Protein, UA Trace(A) Negative 01/26/2025 2:28 PM EDT [facility] LAB[facility] Leuk Esterase, UA Negative Negative 01/26/2025 2:28 PM EDT [facility] Nitrite, UA Negative Negative 01/26/2025 2:28 PM EDT [facility] LAB[facility] Urobilinogen, UA 0.2 E.U./dL 0.2 - 1.0 E.U./dL 01/26/2025 2:28 PM EDT [facility] LAB[facility]ORY Urine (Indwelling Urethral Catheter) Collection / Unknown 01/26/2025 1:53 PM EDT 01/26/2025 2:15 PM EDT [facility] LABORATORY - 01/26/2025 2:28 PM EDT In absence of clinical symptoms, the presence of pyuria, bacteria, and/or nitrites on the urinalysis result does not correlate with infection. us Daniel Ocampo MD URINE ORDERABLES Final Res ult PSYCHIATRIC LABORATORY
[address] [id number], * Urine Drug Screen - Indwelling Urethral Catheter (01/26/2025 1:53 PM EDT) THC, Screen, Urine Negative Negative 2024 2:30 PM EDT PS[facility]CHIAT[facility] LABORATORY Phencyclidine (PCP), Urine Negative Negative 01/26/2025 2:30 PM EDT [facility] LAB[facility] Cocaine Screen, Urine Negative Negative 01/26/2025 2:30 PM EDT [facility] LAB[facility] Methamphetamine, Ur Negative Negative 01/26 2:30 PM EDT [facility] LAB[facility] Opiate Screen Negative Negative 01/26/2025 2:30 PM EDT [facility] LAB[facility] Amphetamine Screen, Urine Negative Negative 01/26/2025 2:30 PM EDT [facility] Benzodiazepine Screen, Urine Negative Negative 01/26/2025 2:30 PM EDT [facility] LAB[facility] Tricyclic Antidepressants Screen Negative Negative 01/26/2025 2:30 PM EDT [facility] LAB[facility] Methadone Screen, Urine Negative Negative 01/26/2025 2:30 PM EDT [facility] LAB[facility] Barbiturates Screen, Urine Negative Negative 01/26/2025 2:30 PM EDT [facility] LAB[facility] Oxycodone Screen, Urine Negative Negative 01/26/2025 2:30 PM EDT [facility] LAB[facility] Buprenorphine, Screen, Urine Negative Negative 01/26/2025 2:30 PM EDT [facility] LAB[facility]ORY Urine (Indwelling Urethral Catheter) Collection / Unknown 01/26/2025 1:53 PM EDT 01/26/2025 2:15 PM EDT Narrative PSYCHIATRIC LABORATORY - 01/26/2025 2:30 PM EDT Cutoff [...] ORDERABLES Final Res ult Performing Organization Address [facility] Co de Phone Number PSYCHIATRIC LABORATORY
[address] [place] [address], * Fentanyl, Urine - Indwelling Urethral Catheter (01/26/2025 1:53 PM EDT) Fentanyl, Urine Negative Negative 01/26/2025 3:27 PM EDT PS[facility] LAB[facility]ATORY Urine (Indwelling Urethral Catheter) Collection / Unknown 01/26/2025 1:53 PM EDT 01/26/2025 2:15 PM EDT [facility] LABORATORY - 01/26/2025 3:27 PM EDT Negative [...] ORDERABLES Final Res ult Performing Organization Address [facility] Co de Phone Number PSYCHIATRIC LABORATORY
[address] [place] [address], [place] [phone] * CT CEREBRAL PERFUSION WITH & WITHOUT [...] MD 01/26/2025 1:57 PM EDT Workstation ID: [id number] Narrative 01/26/2025 1:[address] CEREBRAL [...] MD 01/26/2025 1:57 PM EDT Workstation ID: [id number] Diana Garcia APRN IMG CT ORDERABLES Final [...] MD 01/26/2025 1:57 PM EDT Workstation ID: [id number] Narrative 01/26/2025 1:[address] CEREBRAL [...] MD 01/26/2025 1:57 PM EDT Workstation ID: [id number] Diana Garcia APRN IMG CT ORDERABLES Final R esult * CT Angiogram Neck (01/26/2025 1:45 PM [...] MD 01/26/2025 1:57 PM EDT Workstation ID: [id number] Narrative 01/26/2025 1:[address] CEREBRAL [...] and Tmax images were obtained utilizing the Rapid[employer] protocol. A limited CT angiogram of the [...] MD 01/26/2025 1:57 PM EDT Workstation ID: [id number] Diana Garcia INDUSTRIAL SALES MANAGER IMG CT ORDERABLES Final R esult * CT Angiogram Chest Pulmonary Embolism (01/26/2025 [...] MD 01/26/2025 2:17 PM EDT Workstation ID: [id number] Aleks 01/26/2025 2:[address] ABDOMEN PELVIS [...] MD 01/26/2025 2:17 PM EDT Workstation ID: [id number] us Daniel Ocampo MD IMG CT ORDERABLES Final Re sult * CT Abdomen Pelvis With Contrast (01/26/2025 [...] MD 01/26/2025 2:17 PM EDT Workstation ID: [id number] Narrative 01/26/2025 2:[address] ABDOMEN [...] MD 01/26/2025 2:17 PM EDT Workstation ID: [id number] Daniel Ocampo MD IMG CT ORDERABLES Final [...] MD 01/26/2025 1:08 PM EDT Workstation ID: [id number] Narrative 01/26/2025 1:[address] HEAD [...] MD 01/26/2025 1:08 PM EDT Workstation ID: [id number] Daniel Ocampo MD [facility] [place] ORDERABLES Final Re sult * Telemetry Scan (01/26/2025 12:18 PM EDT) Located within [facility] ECG ORDERABLES Final Result * ECG 12 [...] By: edmd Confirmed By: Rafita Ocampo MD Procedure Note [...] By: edmd Confirmed By: Rafita Ocampo MD us Daniel Ocampo MD ECG ORDERABLES Final Resu lt ECG * Respiratory Panel PCR w/COVID-19(SARS-CoV-2) SAMREEN/PIETRO/NA/PAD/COR/ALEXANDER 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, 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 Swab in UTM/VTM, 2 HR TAT - Swab, Nasopharynx (01/26/2025 12:06 PM EDT) ADENOVIRUS, PCR Not Detected Not Detected BIOFIRE TOR 01/26/2025 1:07 PM EDT PSYCHIATRIC LABORATORY Coronavirus 229E Not Detected Not Detected BIOFIRE TOR 01/26/2025 1:07 PM EDT [facility] LAB[facility] Coronavirus HKU1 Not Detected Not Detected BIOFIRE TOR 01/26/2025 1:07 PM EDT [facility] LAB[facility]ORY Coronavirus NL63 Not Detected Not Detected BIOFIRE TOR 01/26/2025 1:07 PM EDT [facility] LAB[facility]ORY Coronavirus OC43 Not Detected Not Detected BIOFIRE TORCH 01/26/2025 1:07 PM EDT [facility] LAB[facility] COVID19 Not Detected Not Detected - Ref. Range BIOFIRE TORCH 01/26/2025 1:07 PM EDT PS[facility] LAB[facility]AT[facility] Human Metapneumovirus Not Detected Not Detected BIOFIRE TORCH 01/26/2025 1:07 PM EDT [facility] LAB[facility] Human Rhinovirus/Enterov irus Not Detected Not Detected BIOFIRE TORCH 01/26/2025 1:07 PM EDT [facility] LAB[facility] Influenza A PCR Not Detected Not Detected BIOFIRE TORCH 01/26/2025 1:07 PM EDT [facility] LAB[facility] Influenza B PCR Not Detected Not Detected BIOFIRE TORCH 01/26/2025 1:07 PM EDT [facility] LAB[facility]ORY Parainfluenza Virus 1 Not Detected Not Detected BIOFIRE TORCH 01/26/2025 1:07 PM EDT [facility] LAB[facility] Parainfluenza Virus 2 Not Detected Not Detected BIOFIRE TORCH 01/26/2025 1:07 PM EDT PS[facility] LAB[facility]ORY Parainfluenza Virus 3 Not Detected Not Detected BIOFIRE TORCH 01/26/2025 1:07 PM EDT [facility] LAB[facility] Parainfluenza Virus 4 Not Detected Not Detected BIOFIRE TORCH 01/26/2025 1:07 PM EDT PS[facility] LAB[facility] RSV, PCR Not Detected Not Detected BIOFIRE TORCH 01/26/2025 1:07 PM EDT PS[facility] LAB[facility] Bordetella pertussis pcr Not Detected Not Detected BIOFIRE TORCH 01/26/2025 1:07 PM EDT PS[facility] LABORAT[facility] Bordetella parapertussis PCR Not Detected Not Detected BIOFIRE TORCH 01/26/2025 1:07 PM EDT [facility] LAB[facility] Chlamydophila pneumoniae PCR Not Detected Not Detected BIOFIRE TORCH 01/26/2025 1:07 PM EDT PS[facility] LAB[facility]ORY Mycoplasma pneumo by PCR Not Detected Not Detected BIOFIRE TORCH 01/26/2025 1:07 PM EDT PS[facility] LAB[facility]ORY Swab Nasopharyngeal structure / Unknown Collection / Unknown 01/26/2025 12:06 PM EDT 01/26/2025 12:17 PM EDT Narrative PSYCHIATRIC LABORATORY - 01/26/2025 1:07 PM EDT In [...] antibiotic de-escalation to target atypical bacterial infection. us Daniel Ocampo MD MICROBIOLOGY - GENERAL ORD ERABLES Final Result PSYCHIATRIC LABORATORY
[address] [place] [address], * Ammonia (01/26/2025 12:02 PM EDT) Ammonia 22 16 - 60 umol/L 01/26/2025 1:32 PM EDT PS[facility]CHIAT[facility]IC LABORATORY Blood Structure of right upper limb / Unknown Venipuncture / Unknown 01/26/2025 12:02 PM EDT 01/26/2025 1:19 PM EDT us Daniel Ocampo MD LAB BLOOD ORDERABLES Final Result Performing Organization Address City/[facility]/ZIP Co de Phone Number PSYCHIATRIC LABORATORY
[address] [place] [address], * Blood Culture - Blood, Arm, Left (01/26/2025 12:00 PM EDT) Only the most recent of2 resultswithin the time period is included. Blood Culture No growth at 5 days 01/31/2025 1:30 PM EDT PS[facility]CHIAT[facility]IC LABORATORY Blood Structure of left upper limb / Unknown Venipuncture / Unknown 01/26/2025 12:00 PM EDT 01/26/2025 1:21 PM EDT Narrative PSYCHIATRIC LABORATORY - 01/31/2025 1:30 PM EDT Less than seven (7) mL's of blood was collected. Insufficient quantity may yield false negative results. Daniel Ocampo MD MICROBIOLOGY - GENERAL ORD ERABLES Final Result PSYCHIATRIC LABORATORY
[address] [place] [address], * (ABNORMAL) POC CHEM 8 (01/26/2025 11:48 AM EDT) Glucose 120 70 - 130 mg/dL 01/26/2025 11:55 AM EDT PS[facility] LABOR[facility]ORY BUN 14 8 - 26 mg/dL 01/26/2025 11:55 AM EDT [facility] LAB[facility] Creatinine 1.00 0.60 - 1.30 mg/dL 01/26/2025 11:55 AM EDT [facility] LAB[facility] Sodium 142 138 - 146 mmol/L 01/26/2025 11:55 AM EDT [facility] LAB[facility] POC Potassium 4.0 3.5 - 4.9 mmol/L 01/26/2025 11:55 AM EDT [facility] LAB[facility] Chloride 103 98 - 109 mmol/L 01/26/2025 11:55 AM EDT [facility] LAB[facility] Total CO2 25 24 - 29 mmol/L 01/26/2025 11:55 AM EDT [facility] LAB[facility]ORY Hemoglobin 15.6 12.0 - 17.0 g/dL 01/26/2025 11:55 AM EDT PS[facility]IAT[facility]IC LABORATORY Comment:Serial Number: [id number] 1Operator: [id number] Hematocrit 46 38 - 51 % 01/26/2025 11:55 AM EDT PS[facility] LAB[facility]ATORY Ionized Calcium 1.36(H) 1.20 - 1.32 mmol/L 01/26/2025 11:55 AM EDT [facility] LAB[facility]ORY eGFR 82.5 >60.0 mL/min/1.7 3 01/26/2025 11:55 AM EDT PS[facility]IC LAB[facility]ORY Blood 01/26/2025 11:4 8 AM EDT 01/26/2025 11:55 AM EDT Daniel Ocampo MD POINT OF CARE TEST ORDERAB LES Final Result Performing Organization Address [facility]/ZIP Co de Phone Number PSYCHIATRIC LABORATORY
[address] [place] [address], * Escudero Top (01/26/2025 11:42 AM EDT) Extra Tube Hold for add-ons. 01/26/2025 12:00 PM EDT PSYCHIATRIC LABORATORY Comment:Auto resulted. Blood Venipuncture / Unknown 01/26/2025 11:42 AM EDT 01/26/2025 11:52 AM EDT Daniel Ocampo MD LAB BLOOD ORDER ONLY Final Result Performing Organization Address [facility] Co de Phone Number PSYCHIATRIC LABORATORY
[address] [place] [address], * (ABNORMAL) TSH Rfx On Abnormal To Free T4 (01/26/2025 11:42 AM EDT) TSH 5.390(H) 0.270 - 4.200 uIU/mL 01/26/2025 12:40 PM EDT PS[facility]AT[facility]IC LABORATORY Blood Venipuncture / Unknown 01/26/2025 11:42 AM EDT 01/26/2025 11:52 AM EDT Daniel Ocampo MD LAB BLOOD ORDERABLES Final Result Performing Organization Address City/[facility]/ZIP Co de Phone Number PSYCHIATRIC LABORATORY
[address] [place] [address], * Gold Top - SST (01/26/2025 11:42 AM EDT) Extra Tube Hold for add-ons. 01/26/2025 12:00 PM EDT PSYCHIAT[facility]IC LABORATORY Comment:Auto resulted. Blood Venipuncture / Unknown 01/26/2025 11:42 AM EDT 01/26/2025 11:52 AM EDT Daniel Ocampo MD LAB BLOOD ORDER ONLY Final Result Performing Organization Address City/[facility]/ZIP Co de Phone Number PSYCHIATRIC LABORATORY
[address] [place] [address], * Green Top (Gel) (01/26/2025 11:42 AM EDT) Extra Tube Hold for add-ons. 01/26/2025 12:00 PM EDT PSYCHIATRIC LABORATORY Comment:Auto resulted. Blood Venipuncture / Unknown 01/26/2025 11:42 AM EDT 01/26/2025 11:52 AM EDT Daniel Ocampo MD LAB BLOOD ORDER ONLY Final Result Performing Organization Address [facility] de Phone Number PSYCHIATRIC LABORATORY
[address] [place] [address], * Procalcitonin (01/26/2025 11:42 AM EDT) Procalcitonin 0.07 0.00 - 0.25 ng/mL 01/26/2025 1:32 PM EDT PSYCHIATRIC LABORATORY Blood Venipuncture / Unknown 01/26/2025 11:42 AM EDT 01/26/2025 11:52 AM EDT Narrative PSYCHIATRIC LABORATORY - 01/26/2025 1:32 PM EDT As [...] Day 4 values are available. Refer to http://www.bervor-zcm-txoanixjdc.com Change in PCT <=80% A decrease of [...] diagnosed with severe sepsis or septic shock. Daniel Ocampo MD LAB BLOOD ORDERABLES Final Result Performing Organization Address City/[facility]/ZIP Co de Phone Number PSYCHIATRIC LABORATORY
[address] [place] [address], * Lavender Top (01/26/2025 11:42 AM EDT) Extra Tube hold for add-on 01/26/2025 12:00 PM EDT PSYCHIATRIC LABORATORY Comment:Auto resulted Blood Venipuncture / Unknown 01/26/2025 11:42 AM EDT 01/26/2025 11:52 AM EDT Daniel Ocampo MD LAB BLOOD ORDER ONLY Final Result Performing Organization Address City/[facility]/ZIP Co de Phone Number PSYCHIATRIC LABORATORY
[address] [place] [address], * Light Blue Top (01/26/2025 11:42 AM EDT) Extra Tube Hold for add-ons. 01/26/2025 12:00 PM EDT PSYCHIATRIC LABORATORY Comment:Auto resulted Blood Venipuncture / Unknown 01/26/2025 11:42 AM EDT 01/26/2025 11:52 AM EDT Daniel Ocampo MD LAB BLOOD ORDER ONLY Final Result Performing Organization Address City/[facility]/ZIP Co de Phone Number PSYCHIATRIC LABORATORY
[address] [place] [address], * High Sensitivity Troponin T (01/26/2025 11:42 AM EDT) HS Troponin T 11 <22 ng/L 01/26/2025 12:19 PM EDT PS[facility]IC LABORATORY Blood Venipuncture / Unknown 01/26/2025 11:42 AM EDT 01/26/2025 11:52 AM EDT Narrative PS[facility]CHIATRIC LABORATORY - 01/26/2025 12:19 PM EDT High [...] injury due to an underlying chronic condition. us Daniel Ocampo MD LAB BLOOD ORDERABLES Final Result PSYCHIATRIC LABORATORY
[address] [place] [address], * BNP (01/26/2025 11:42 AM EDT) proBNP 93.0 0.0 - 900.0 pg/mL 01/26/2025 12:40 PM EDT [facility] LAB[facility]ORY Blood Venipuncture / Unknown 01/26/2025 11:42 AM EDT 01/26/2025 11:52 AM EDT Narrative PSYCHIATRIC LABORATORY - 01/26/2025 12:40 PM EDT This [...] BLOOD ORDERABLES Final Result Performing Organization Address [facility] Co de Phone Number PSYCHIATRIC LABORATORY
[address] [place] [address], * Lactic Acid, Plasma (01/26/2025 11:42 AM EDT) Lactate 1.8 0.5 - 2.0 mmol/L 01/26/2025 12:12 PM EDT PS[facility]CHIAT[facility]IC LABORATORY Comment:Falsely depressed re sults may occur on samples drawn from patients receiving N-Acetylcysteine (NAC) or Metamizole. Blood Venipuncture / Unknown 01/26/2025 11:42 AM EDT 01/26/2025 11:52 AM EDT Daniel Ocampo MD LAB BLOOD ORDERABLES Final Result Performing Organization Address [facility]/ZIP Co de Phone Number PSYCHIATRIC LABORATORY
[address] [place] [address], * Ethanol (01/26/2025 11:42 AM EDT) Ethanol <10 0 - 10 mg/dL 01/26/2025 12:28 PM EDT [facility] LAB[facility]ATORY Blood Venipuncture / Unknown 01/26/2025 11:42 AM EDT 01/26/2025 11:52 AM EDT Narrative PS[facility]CHIATRIC LABORATORY - 01/26/2025 12:28 PM EDT Not for legal purposes. Daniel Ocampo MD LAB BLOOD ORDERABLES Final Result [facility]AT[facility]IC LABORATORY
[address] [place] [address], * Acetaminophen Level (01/26/2025 11:42 AM EDT) Acetaminophen <5.0 0.0 - 30.0 mcg/mL 01/26/2025 12:33 PM EDT [facility] LAB[facility]ORY Blood Venipuncture / Unknown 01/26/2025 11:42 AM EDT 01/26/2025 11:52 AM EDT Daniel Ocampo MD LAB BLOOD ORDERABLES Final Result Performing Organization Address [facility] Co de Phone Number PSYCHIATRIC LABORATORY
[address] [place] [address], * Salicylate Level (01/26/2025 11:42 AM EDT) Salicylate <0.3 <=30.0 mg/dL 01/26/2025 12:33 PM EDT [facility] LAB[facility]ORY Blood Venipuncture / Unknown 01/26/2025 11:42 AM EDT 01/26/2025 11:52 AM EDT Daniel Ocampo MD LAB BLOOD ORDERABLES Final Result Performing Organization Address City/[facility] Co de Phone Number PSYCHIATRIC LABORATORY
[address] [place] [address], from Last 3 Months Insurance Advance Directives * CPR (Attempt to Resuscitate) (Latest Code Status on File) Date Activated Date Inactivated Comments 01/26/2025 3:02 PM 02/02/2025 6:02 PM Question Answer Comments Code Status (Patient has no pulse and is not breathing): CPR (Attempt to Resuscitate) Medical Interventions (Patie nt has pulse or is breathing): Full Support Care Teams Tool Smith Relationship Specialty Start Date End Date Provider, No Known [facility] [place] [address] PCP - General 01/26/25
--- OUTSIDE RECORDS SUMMARY | 2025-02-18 11:35 | XMS_ITS | Encounter Summary ---
Author Organization [facility] Address [address] [place] [address] Care Team Providers Care Spanish Speaking Babysitter Name Role Phone Provider, No Known Primary Care Provider Unavail able Encounter Details Date Type Department Care Team (Late st Contact Info) Description 02/15/2025 Readmission Management [facility] [address] [place] [phone] Lacey Brown RN Social History Tobacco Use Types Packs/Day [...] or training? Not on file Preferred Language Uruguayan 01/27/2025 Sex and Gender Information Value Date Recorded Sex Assigned at Not on file Legal Sex Male 9:35 AM EST Gender Identity Not on file Sexual Orientation Not on file documented as of this encounter Miscellaneous Notes * Outreach Note - Lacey Brown RN - 02/15/2025 2:27 PM EDT Images from the original note were not included. Medical Week 1 Survey Flowsheet Row [facility] the [facility] have one of the following disease processes/diagnoses(primary or secondary)? Other Week 1 attempt successful? No [NO VR] Unsuccessful attempts Attempt 2 Lacey Herrera - Registered Nurse documented in this encounter Plan of Treatment Not on file documented as of this encounter Visit Diagnoses Not on filedocumented in this encounter Care Teams Spanish Speaking Babysitter Relationship Specialty Start Date End Date Provider, No Known [facility] [address] PCP - General 01/26/25 documented as of this encounter
[2025-02-18 11:45] LABS: Hematocrit 40.9 % (42.0-52.0); Hemoglobin 14.3 g/dL (14.1-18.0); Immature Granulocytes % 0.2 %; Mean Corpuscular HGB Conc 35.0 g/dL (31.8-35.4); Mean Corpuscular Hemoglobin 34.5 pg (27.0-31.2); Mean Corpuscular Volume 98.8 fl (80-94); Nucleated Red Blood Cells % 0 %; Platelet Count 158 K/mm3 (142-424); Red Blood Count 4.14 M/mm3 (4.60-6.20); Red Cell Distribution Width-SD 47.1 fL; White Blood Count 6.2 K/mm3 (4.8-10.8)
[2025-02-18 12:15] LABS: Chloride 109 mmol/L (98-107)
[2025-02-18 12:16] LABS: Albumin Level 4.2 g/dl (3.5-5.0); Potassium 4.4 mmoL/L (3.5-5.1); Sodium 139 mmol/L (136-145)
[2025-02-18 12:19] LABS: Alanine Aminotransferase 47 U/L (12-78); Albumin/Globulin Ratio 1.3 (1.1-1.8); Alkaline Phosphatase 79 U/L (38-126); Anion Gap 10.4 mEq/L (5-15); Aspartate Amino Transferase 58 U/L (17-59); Bilirubin,Total 0.8 mg/dl (0.2-1.3); Blood Urea Nitrogen 15 mg/dl (9-20); Calcium 9.9 mg/dl (8.4-10.2); Carbon Dioxide 24 mmol/L (22.0-30.0); Cholesterol 149 mg/dl (140-200); Creatinine,Serum 0.70 mg/dl (0.66-1.25); Estimated Glomerular Filt Rate 112 ml/min (>60); GFR (African American) 136 ML/MIN (>60); Globulin 3.3 g/dL (1.3-3.2); Glucose 119 mg/dl (74-100); Magnesium 1.8 mg/dl (1.6-2.3); Total Protein,Serum 7.5 g/dl (6.3-8.2); Triglycerides 125 mg/dl (30-150)
[2025-02-18 12:20] LABS: HDL Cholesterol 55 mg/dl (40-60)
[2025-02-18 12:36] LABS: 25-OH Vitamin D, Total 52.9 ng/mL (30-100); Free T4 (Free Thyroxine) 1.15 ng/dl (0.78-2.19)
[2025-02-18 12:42] LABS: Hemoglobin A1C 5.6 % (4.0-6.0)
== END 2025-02-18 23:59 | disposition home or self-care (01) ==
LOC: LAB 11:23
PROVIDERS: PCP Nurse Practitioner Family; Visit Provider Nurse Practitioner Family
DX: E11.69 Type 2 diabetes mellitus with other specified complication (principal); N40.1 Benign prostatic hyperplasia with lower urinary tract symptoms; E78.2 Mixed hyperlipidemia; E03.9 Hypothyroidism, unspecified; Z87.09 Personal history of other diseases of the respiratory system
CPT/HCPCS: 36415; 80053; 80061; 82306; 83036; 83735; 84439; 85025; G0103

== ENCOUNTER 2025-04-08 13:08 | Outpatient (CLI) | payer MEDICARE, SELFPAY ==
--- OUTSIDE RECORDS SUMMARY | 2025-04-08 13:12 | XMS_ITS | Clinical Summary ---
Author Organization [facility] Address [address] [place] [address] Care Team Providers Care Animal Care Supervisor Name Role Phone Ifeanyi Carlos MD Primary Care Provider [phone] Social History Tobacco Use Types Packs/Day Years [...] [facility]-Zoster Vaccines (2 of 2) 12/08/2018 10/13/2018 [id number] Vaccine (1 - 20 24-25 season) 2025 [facility]-Influenza Vaccine (#1) 2025 [facility]Y-RSV Vaccine: 60+ [...] age to complete this topic Care Teams Animal Care Supervisor Relationship Specialty Start Date End Date Ifeanyi Carlos MD [address] [place] [address] PCP - General 11/03/20
--- OUTSIDE RECORDS SUMMARY | 2025-04-08 13:12 | XMS_ITS | Encounter Summary ---
[facility] [address] [place] [address] Care Team Providers Care Binder Cutter Hand Name Role Phone Provider, No Known Primary Care Provider Unavail able Encounter Details Date Type Department Care Team (Late st Contact Info) Description 02/15/2025 Readmission Management [facility] [address] [place] [phone] Lacey Brown RN Social History Tobacco [...] or training? Not on file Preferred Language Canadian 01/27/2025 Sex and Gender Information Value Date [...] Medical Week 1 Survey Flowsheet Row [facility] the patient have one of the following disease processes/diagnoses(primary or secondary)? Other Week 1 attempt successful? No [NO VR] Unsuccessful attempts Attempt 2 Lacey Herrera - Registered Nurse documented in this encounter Plan of Treatment Not on file documented as of this encounter Visit Diagnoses Not on filedocumented in this encounter Care Teams Binder Cutter Hand Relationship Specialty Start Date End Date Provider, No Known [facility] [place] [address] PCP - General 01/26/25 documented as of this encounter
--- OUTSIDE RECORDS SUMMARY | 2025-04-08 13:13 | XMS_ITS | Encounter Summary ---
[facility] [address] [place] [address] Care Team Providers Care Club Licensee Name Role Phone Provider, No Known Primary Care Provider Unavail able Encounter Details Date Type Department Care Team (Late st Contact Info) Description 02/24/2025 Readmission Management [facility] [address] [place] [phone] Ellen Hunter, RN Social History Tobacco Use Types Packs/Day [...] or training? Not on file Preferred Language Citizen Of [place] 01/27/2025 Sex and Gender Information Value Date Recorded Sex Assigned at Not on file Legal Sex Male 9:35 AM EST Gender Identity Not on file Sexual Orientation Not on file documented as of this encounter Miscellaneous Notes * Outreach Note - Ellen Hunter RN - 02/24/2025 1:57 PM EDT Medical Week 1 Survey Flowsheet Row Responses [facility] patient discharged from? [place] Does the patient have one of the following disease processes/diagnoses(primary or secondary)? Other Week 1 attempt successful? Yes Call start time 1358 Call end time 1400 Discharge diagnosis Encephalopathy Person spoke with today (if not patient) and relationship Patient Meds reviewed with patient/caregiver? Yes Does the patient have all medications ordered at discharge? Yes Prescription comments No concerns or questions noted. Is the patient taking all medications as directed (includes completed medication regime)? Yes Does the patient have a primary care provider? Yes Comments regarding PCP Has seen pcp since [place] What is the Home health agency? [facility] Psychosocial issues? No Did the patient receive a copy of their discharge instructions? Yes Nursing interventions Reviewed instructions with patient What is the patient's perception of their health status since discharge? Improving Is the patient/caregiver able to teach back signs and symptoms related to disease process for when to call PCP? Yes Is the patient/caregiver able to teach back signs and symptoms related to disease process for when to call 911? Yes Is the patient/caregiver able to teach back the hierarchy of who to call/visit for symptoms/problems? PCP, Specialist, Home health nurse, Urgent Care, ED, 911 Yes Week 1 call completed? Yes Graduated Yes Wrap up additional comments Patient doing well no concerns or questions noted. Call end time 1400 Ellen Clayton - Registered Nurse documented in this encounter Plan of Treatment Not on file documented as of this encounter Visit Diagnoses Not on filedocumented in this encounter Care Teams Club Licensee Relationship Specialty Start Date End Date Provider, [place] [address] PCP - General 01/26/25 documented as of this encounter
--- OUTSIDE RECORDS SUMMARY | 2025-04-08 13:13 | XMS_ITS | Clinical Summary ---
[facility] Address [address] [place] [id number] Care Team Providers Care Dolly Pusher Name Role Phone Provider, No Known Primary Care Provider Unavail able Allergies No known active allergies Medications carvedilol (COREG) 6.25 MG tablet Take 1 tablet by mouth 2 (Two) Times a Day. 04/23/2021 Active clopidogrel (PLAVIX) 75 MG tablet Take 1 tablet by mouth Every Morning. Active atorvastatin (LIPITOR) 40 MG tablet Take 1 tablet by mouth Every Night. 04/23/2021 Active furosemide (LASIX) 40 MG tablet Take [...] (Two) Times a Day With Meals. Active levothyroxine (SYNTHROID, LEVOTHROID) 75 MCG tablet Take 1 tablet by mouth Every Morning for 30 days. 30 tablet 02/02/2025 1:18 PM EDT 02/03/2025 Active albuterol sulfate HFA 108 (90 Base) MCG/ACT inhaler Inhale 2 puffs Every 4 (Four) Hours As Needed for Wheezing. 18 g 02/02/2025 1:18 PM EDT 02/02/2025 Active Active Problems Problem Noted Date Diagnosed Date Hypophosphatemia 01/31/2025 Encephalopathy, metabolic 01/31/2025 Essential hypertension 01/26/2025 Type 2 diabetes mellitus 01/26/2025 Obesity, morbid, BMI 40.0-49.9 01/26/2025 Asymptomatic stenosis of right vertebral artery 06/05/2021 Overview (06/05/2021): Added automatically from request for surgery [id number] Hyperlipidemia 10/16/2017 Resolved Problems Problem Noted Date Diagnosed Date Resolved Date Altered mental status 01/26/20252024 Encounters Date Type Department Care Team Description 02/24/2025 Readmission Management [facility] [address] [place] [address] Ellen Hunter, ALISA 02/15/2025 Readmission Management [facility] [address] [place] [address] Lacey Brown, ALISA 02/04/2025 Readmission Management [facility] [address] [place] [id number] Marli Bob RN 02/03/2025 Readmission Management [facility] [address] [place] [address] Jocy Eaton 01/26/2025 11:34 AM EDT - 02/02/2025 1:30 PM EDT Hospital Encounter [address] [place] [address] Daniel Ocampo MD Tzouanakis, Alexander E, MD Goldstein, Joshua, MD Russell, Marc P, MD Altered mental status, unspecified altered mental status type (Primary Dx); Acute encephalopathy; Acute respiratory failure, unspecified whether with hypoxia or hypercapnia; Dysphagia, unspecified type; Obesity, morbid, BMI 40.0-49.9; Encephalopathy, metabolic; Hypophosphatemia; Transient alteration of awareness; Essential hypertension; Asymptomatic stenosis of right vertebral artery Discharge Disposition: [place] [facility] [place] Travel from Last 3 Months Family [...] WELLNESS VISIT 06/04/2021 HEPATITIS C SCREENING 06/04/2021 INFLUENZA VACCINE 01/21/2025 COVID-19 Vaccine ( season) 2025 HEMOGLOBIN A1C 07/30/2025 01/27/2025 LIPID PANEL 01/27/2026 [...] ED INTUBATION Routine 01/26/2025 5:27 PM EDT [facility] CRITICAL CARE ILL/INJURED PATIENT INIT 30-74 MIN [...] EDT RESPIRATORY PANEL PCR W/ COVID-19 (SARS-COV-2), BUSINESS CENTER REPRESENTATIVE SWAB IN UTM/VTP, 2 HR TAT STAT 01/26/2025 12:06 PM EDT AMMONIA STAT 01/26/2025 12:02 PM EDT BLOOD CULTURE STAT 01/26/2025 12:00 PM EDT POCT [id number] CT STAT 01/26/2025 11:48 AM EDT LIGHT [...] of8 resultswithin the time period is included. Phosphorus 2.4(L) 2.5 - 4.5 mg/dL 02/02/2025 11:00 AM EDT [facility] Blood Venipuncture / Unknown 02/02/2025 9:58 AM EDT 02/02/2025 10:20 AM EDT us Heron Abdul MD LAB BLOOD ORDERABLES Final R esult Performing Organization Address City/[facility]/ZIP Co de Phone Number [facility]
[address] [place] [address], * Magnesium (02/02/2025 9:58 AM EDT) Only the most recent of8 resultswithin the time period is included. Magnesium 2.1 1.6 - 2.4 mg/dL 02/02/2025 11:00 AM EDT [facility] Blood Venipuncture / Unknown 02/02/2025 9:58 AM EDT 02/02/2025 10:20 AM EDT us Heron Abdul MD LAB BLOOD ORDERABLES Final R esult [facility]
[address] [place] [address], [place] [phone] * (ABNORMAL) Basic Metabolic Panel (02/02/2025 9:58 AM EDT) Only the most recent of5 resultswithin the time period is included. Glucose 143(H) 65 - 99 mg/dL 02/02/2025 11:00 AM T [facility] BUN 8.6 8.0 - 23.0 mg/dL 02/02/2025 11:00 AM T [facility] Creatinine 0.61(L) 0.76 - 1.27 mg/dL 02/02/2025 11:00 AM T [facility] Sodium 140 136 - 145 mmol/L 02/02/2025 11:00 AM T [facility] Potassium 3.7 3.5 - 5.2 mmol/L 02/02/2025 11:00 AM EDT [facility] Chloride 106 98 - 107 mmol/L 02/02/2025 11:00 AM [facility] CO2 23.5 22.0 - 29.0 mmol/L 02/02/2025 11:00 AM T [facility] Calcium 9.0 8.6 - 10.5 mg/dL 02/02/2025 11:00 AM [facility] BUN/Creatinine Ratio 14.1 7.0 - 25.0 02/02/2025 11:00 AM [facility] Anion Gap 10.5 5.0 - 15.0 mmol/L 02/02/2025 11:00 AM [facility] eGFR 105.3 >60.0 mL/min/1.7 3 02/02/2025 11:00 AM [facility] Blood Venipuncture / Unknown 02/02/2025 9:58 AM EDT 02/02/2025 10:20 AM EDT [facility] - 02/02/2025 11:00 AM EDT GFR [...] MD LAB BLOOD ORDERABLES Final R esult [facility]
[address] [place] [address], * (ABNORMAL) CBC Auto Differential (02/02/2025 8:50 AM EDT) Only the most recent of8 resultswithin the time period is included. WBC 6.20 3.40 - 10.80 10*3/mm3 02/02/2025 9:17 AM EDT [facility] RBC 4.20 4.14 - 5.80 10*6/mm3 02/02/2025 9:17 AM EDT [facility] Hemoglobin 14.1 13.0 - 17.7 g/dL 02/02/2025 9:17 AM EDT [facility] Hematocrit 40.5 37.5 - 51.0 % 02/02/2025 9:17 AM EDT [facility] MCV 96.4 79.0 - 97.0 fL 02/02/2025 9:17 AM EDT [facility] MCH 33.6(H) 26.6 - 33.0 pg 02/02/2025 9:17 AM EDT [facility] MCHC 34.8 31.5 - 35.7 g/dL 02/02/2025 9:17 AM EDT [facility] RDW 12.9 12.3 - 15.4 % 02/02/2025 9:17 AM EDT [facility] RDW-SD 45.5 37.0 - 54.0 fl 02/02/2025 9:17 AM EDT [facility] MPV 9.6 6.0 - 12.0 fL 02/02/2025 9:17 AM [facility] Platelets 143 140 - 450 10*3/mm3 02/02/2025 9:17 AM [facility] Neutrophil % 52.0 42.7 - 76.0 % 02/02/2025 9:17 AM [facility] Lymphocyte % 30.3 19.6 - 45.3 % 02/02/2025 9:17 AM [facility] Monocyte % 10.3 5.0 - 12.0 % 02/02/2025 9:17 AM [facility] Eosinophil % 3.4 0.3 - 6.2 % 02/02/2025 9:17 AM [facility] Basophil % 0.6 0.0 - 1.5 % 02/02/2025 9:17 AM [facility] Immature Grans % 3.4(H) 0.0 - 0.5 % 02/02/2025 9:17 AM [facility] Neutrophils, Absolute 3.22 1.70 - 7.00 10*3/mm3 02/02/2025 9:17 AM [facility] Lymphocytes, Absolute 1.88 0.70 - 3.10 10*3/mm3 02/02/2025 9:17 AM [facility] Monocytes, Absolute 0.64 0.10 - 0.90 10*3/mm3 02/02/2025 9:17 AM [facility] Eosinophils, Absolute 0.21 0.00 - 0.40 10*3/mm3 02/02/2025 9:17 AM [facility] Basophils, Absolute 0.04 0.00 - 0.20 10*3/mm3 02/02/2025 9:17 AM [facility] Immature Grans, Absolute 0.21(H) 0.00 - 0.05 10*3/mm3 02/02/2025 9:17 AM [facility] nRBC 0.0 0.0 - 0.2 /100 WBC 02/02/2025 9:17 AM EDT [facility] Blood Venipuncture / Unknown 02/02/2025 8:50 AM EDT 02/02/2025 8:57 AM EDT Heron Abdul MD LAB BLOOD ORDERABLES Final R esult [facility]
[address] [place] [address], * XR Chest 1 View (02/02/2025 4:26 AM EDT) Only the most recent of8 resultswithin the time period is included. Anatomical Region Laterality Modality Body N/A Radiographic Cristine ging 02/02/2025 7:40 AM EDT Impressions 02/02/2025 7:43 AM EDT Impression: No evidence of pneumonia. Electronically Signed: Zack Francois MD 02/02/2025 7:43 AM EDT Workstation ID: [id number] Narrative 02/02/2025 7:43 AM EDT XR CHEST [...] MD 02/02/2025 7:43 AM EDT Workstation ID: [id number] Heron Abdul MD IMG DIAGNOSTIC IMAGING ORDER DANIELLA Final Result * Potassium (01/31/2025 12:59 PM EDT) Potassium 4.4 3.5 - 5.2 mmol/L 01/31/2025 1:38 PM EDT [facility] Blood Venipuncture / Unknown 01/31/2025 12:59 PM EDT 01/31/2025 1:10 PM EDT Shawn Savage APRN LAB BLOOD ORDERABLES Roxanna l Result [facility]
[address] [place] [address], * TSH (01/30/2025 3:41 AM EDT) Pathologist [facility] TSH 1.180 0.270 - 4.200 uIU/mL 01/30/2025 2:15 PM EDT [facility] Blood Venipuncture / Unknown 01/30/2025 3:41 AM EDT 01/30/2025 4:03 AM EDT Heron Abdul MD LAB BLOOD ORDERABLES Final R esult Performing Organization Address City/[facility]/ZIP Co de Phone Number [facility]
[address] [place] [address], * T4, Free (01/30/2025 3:41 AM EDT) Only the most recent of2 resultswithin the time period is included. Free T4 1.16 0.92 - 1.68 ng/dL 01/30/2025 2:15 PM EDT [facility] Blood Venipuncture / Unknown 01/30/2025 3:41 AM EDT 01/30/2025 4:03 AM EDT Heron Abdul MD LAB BLOOD ORDERABLES Final R esult Performing Organization Address [facility] Co de Phone Number [facility]
[address] [place] [address], * POC Glucose Once (01/29/2025 7:09 AM EDT) Only the most recent of12 resultswithin the time period is included. Glucose 119 70 - 130 mg/dL 01/29/2025 7:12 AM EDT [facility] Blood 01/29/2025 7:09 AM EDT 01/29/2025 7:12 AM EDT Heron Abdul MD POINT OF CARE TEST ORDERABLE S Final Result Performing Organization Address [facility] de Phone Number [facility]
[address] [place] [address], * (ABNORMAL) C-reactive Protein (01/28/2025 4:17 AM EDT) C-Reactive Protein 4.31(H) 0.00 - 0.50 mg/dL 01/28/2025 4:55 AM EDT [facility] Blood Line / Unknown 01/28/2025 4: 17 AM EDT 01/28/2025 4:23 AM EDT Heron Abdul MD LAB BLOOD ORDERABLES Final R esult Performing Organization Address [facility] Co de Phone Number [facility]
[address] [place] [address], * (ABNORMAL) Prealbumin (01/28/2025 4:17 AM EDT) Prealbumin 17.7(L) 20.0 - 40.0 mg/dL 01/28/2025 10:09 AM EDT [facility] Blood Line / Unknown 01/28/2025 4: 17 AM EDT 01/28/2025 4:23 AM EDT us Heron Abdul MD LAB BLOOD ORDERABLES Final R esult [facility]
[address] [place] [address], [place] [phone] * (ABNORMAL) Comprehensive Metabolic Panel (01/28/2025 4:17 AM EDT) Only the most recent of3 resultswithin the time period is included. Glucose 124(H) 65 - 99 mg/dL 01/28/2025 8:51 AM EDT [facility] BUN 15.2 8.0 - 23.0 mg/dL 01/28/2025 8:51 AM EDT [facility] Creatinine 0.90 0.76 - 1.27 mg/dL 01/28/2025 8:51 AM EDT [facility] Sodium 144 136 - 145 mmol/L 01/28/2025 8:51 AM EDT [facility] Potassium 4.0 3.5 - 5.2 mmol/L 01/28/2025 8:51 AM EDT [facility] Comment:Slight hemolysis det ected by analyzer. Result may be falsely elevated. Chloride 110(H) 98 - 107 mmol/L 01/28/2025 8:51 AM EDT [facility] CO2 19.0(L) 22.0 - 29.0 mmol/L 01/28/2025 8:51 AM EDT [facility] Calcium 9.3 8.6 - 10.5 mg/dL 01/28/2025 8:51 AM EDT [facility] Total Protein 7.3 6.0 - 8.5 g/dL 01/28/2025 8:51 AM EDT [facility] Albumin 3.9 3.5 - 5.2 g/dL 01/28/2025 8:51 AM EDT [facility] ALT (SGPT) 28 1 - 41 U/L 01/28/2025 8:51 AM EDT [facility] AST (SGOT) 31 1 - 40 U/L 01/28/2025 8:51 AM EDT [facility] Alkaline Phosphatase 86 39 - 117 U/L 01/28/2025 8:51 AM EDT [facility] Total Bilirubin 1.0 0.0 - 1.2 mg/dL 01/28/2025 8:51 AM EDT [facility] Globulin 3.4 gm/dL 01/28/2025 8:51 AM EDT [facility] Comment:Calculated Result A/G Ratio 1.1 g/dL 01/28/2025 8:51 AM EDT [facility] BUN/Creatinine Ratio 16.9 7.0 - 25.0 01/28/2025 8:51 AM EDT [facility] Anion Gap 15.0 5.0 - 15.0 mmol/L 01/28/2025 8:51 AM EDT [facility] eGFR 93.6 >60.0 mL/min/1.7 3 01/28/2025 8:51 AM EDT [facility] Blood Line / Unknown 01/28/2025 4: 17 AM EDT 01/28/2025 4:23 AM EDT [facility] - 01/28/2025 8:51 AM EDT GFR [...] MD LAB BLOOD ORDERABLES Final R esult [facility]
[address] [place] [address], * (ABNORMAL) Blood Gas, Arterial With Co-Ox (01/28/2025 3:33 AM EDT) Only the most recent of4 resultswithin the time period is included. Site Right Radial 01/28/2025 3:34 AM EDT [facility] THERAPY Michele's Test N/A 01/28/2025 3:34 AM EDT [facility] THERAPY pH, Arterial 7.430 7.350 - 7.450 pH units 01/28/2025 3:34 AM EDT [facility] THERAPY pCO2, Arterial 31.7(L) 35.0 - 45.0 mm Hg 01/28/2025 3:34 AM EDT [facility] THERAPY Comment:84 Value below refer ence range pO2, Arterial 73.6(L) 83.0 - 108.0 mm Hg 01/28/2025 3:34 AM EDT [facility] THERAPY Comment:84 Value below refer ence range HCO3, Arterial 21.0 20.0 - 26.0 mmol/L 01/28/2025 3:34 AM EDT [facility] THERAPY Base Excess, Arterial -2.3(L) 0.0 - 2.0 mmol/L 01/28/2025 3:34 AM EDT [facility] THERAPY Hemoglobin, Blood Gas 14.8 13.5 - 17.5 g/dL 01/28/2025 3:34 AM EDT [facility] THERAPY Hematocrit, Blood Gas 45.4 38.0 - 51.0 % 01/28/2025 3:34 AM EDT [facility] THERAPY Oxyhemoglobin 94.3 94 - 99 % 01/28/2025 3:34 AM EDT [facility] THERAPY Methemoglobin 0.40 0.00 - 1.50 % 01/28/2025 3:34 AM EDT [facility] THERAPY Carboxyhemoglobin 1.1 0 - 2 % 025 3:34 AM EDT [facility] THERAPY CO2 Content 22.0 22 - 33 mmol/L 01/28/2025 3:34 AM EDT [facility] THERAPY Temperature 37.0 01/28/2025 3:34 AM EDT [facility] THERAPY Barometric Pressure for Blood Gas 01/28/2025 3:34 AM EDT [facility] THERAPY Comment:N/A Modality Ventilator 01/28/2025 3:34 AM EDT [facility] THERAPY FIO2 40 % 01/28/2025 3:34 AM EDT [facility] THERAPY Ventilator Mode VC+/AC 3:34 AM EDT [facility] THERAPY Set Tidal Volume 0.46 01/29/20 3:34 AM EDT [facility] THERAPY Rate 12 Breaths/ minute 01/28/2025 3:34 AM EDT [facility] THERAPY PEEP 7.0 01/28/2025 3:34 AM EDT [facility] THERAPY PIP 0 cmH2O 01/28/2025 3:34 AM EDT [facility] THERAPY Comment:Meter: [id number] Learning Designer: [id number] IPAP 0 01/28/2025 3:34 AM EDT [facility] THERAPY EPAP 0 01/28/2025 3:34 AM EDT [facility] THERAPY pH, Temp Corrected 7.430 pH Units 2024 3:34 AM EDT [facility] THERAPY pCO2, Temperature Corrected 31.7(L) 35 - 48 mm Hg 01/28/2025 3:34 AM EDT [facility] THERAPY pO2, Temperature Corrected 73.6(L) 83 - 108 mm Hg 01/28/2025 3:34 AM EDT [facility] THERAPY Arterial Blood 01/28/2025 3: 33 AM EDT 01/28/2025 3:34 AM EDT us Heron Abdul MD LAB BLOOD ORDERABLES Final R esult [facility] THERAPY
[address] [place] [address], * CT Chest Without Contrast Diagnostic (01/27/2025 [...] MD 01/28/2025 11:02 AM EDT Workstation ID: [id number] Narrative 01/28/2025 11:[address] CHEST [...] MD 01/28/2025 11:02 AM EDT Workstation ID: [id number] Julia Connors PA-C IM CT ORDERABLES Final Result * Hemoglobin A1c (01/27/2025 3:12 AM EDT) Hemoglobin A1C 5.51 4.80 - 5.60 % 01/27/2025 4:23 AM EDT [facility] Blood Venipuncture / Unknown 01/27/2025 3:12 AM EDT 01/27/2025 3:32 AM EDT [facility] - 01/27/2025 4:23 AM EDT Hemoglobin A1C Ranges: Increased Risk for Diabetes 5.7% to 6.4% Diabetes >= 6.5% Diabetic Goal < 7.0% Diana Garcia V[employer]ENDER LAB BLOOD ORDERABLES Roxanna foreman Result [facility]
[address] [place] [address], * Lipid Panel (01/27/2025 3:12 AM EDT) Total Cholesterol 137 0 - 200 mg/dL 01/27/2025 4:02 AM EDT [facility] Triglycerides 104 0 - 150 mg/dL 01/27/2025 4:02 AM EDT [facility] HDL Cholesterol 49 40 - 60 mg/dL 01/27/2025 4:02 AM EDT [facility] LDL Cholesterol 69 0 - 100 mg/dL 01/27/2025 4:02 AM EDT [facility] VLDL Cholesterol 19 5 - 40 mg/dL 01/27/2025 4:02 AM EDT [facility] LDL/HDL Ratio 1.37 01/27/2025 4:02 AM EDT [facility] Blood Venipuncture / Unknown 01/27/2025 3:12 AM EDT 01/27/2025 3:33 AM EDT [facility] - 01/27/2025 4:02 AM EDT Cholesterol [...] using the NIH LDL-C calculation. Diana Garcia V[employer] T[employer] LAB BLOOD ORDERABLES Roxanna foreman Result [facility]
[address] [place] [address], * MRI Brain Without Contrast (01/26/2025 11:17 [...] MD 01/27/2025 1:30 AM EDT Workstation ID: [id number] Narrative 01/27/2025 1:30 AM EDT MRI BRAIN [...] MD 01/27/2025 1:30 AM EDT Workstation ID: [id number] Diana Garcia [facility] MRI ORDERABLES Final Result * Cortisol (01/26/2025 8:58 PM EDT) Cortisol 6.77 mcg/dL 01/26/2025 9:34 PM EDT [facility] Blood Venipuncture / Unknown 01/26/2025 8:58 PM EDT 01/26/2025 9:05 PM EDT Narrative [facility] - 01/26/2025 9:34 PM EDT Cortisol Reference Ranges: Cortisol 6AM - 10AM Range: 6.02-18.40 mcg/dl Cortisol 4PM - 8PM Range: 2.68-10.50 mcg/dl Results may be falsely increased if patient taking Biotin. us Heron Abdul MD LAB BLOOD ORDERABLES Final R esult [facility]
[address] [place] [address], * ECHO COMPLETE W/ DOPPLER, COLOR FLOW AND CONTRAST (01/26/2025 5:55 PM EDT) EF(MOD-bp) 79.5 % LVIDd 3.4 cm LVIDs [...] reaction to image enhancer was noted. 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 Narrative NEUROLOGY - 01/26/2025 4:25 [...] generalized slow No epileptiform activity is present us Diana Garcia [employer]ER NEUROLOGY ORDERABLES Roxanna ahsan Result Performing Organization Address [facility] de Phone Number NEUROLOGY * High Sensitivity Troponin T 1Hr (01/26/2025 1:53 PM EDT) HS Troponin T 11 <22 ng/L 01/26/2025 2:30 PM EDT [facility] Troponin T Numeric Delta 0 Abnormal if >/=3 ng/L 01/26/2025 2:30 PM EDT [facility] Blood Line / Unknown 01/26/2025 1: 53 PM EDT 01/26/2025 1:59 PM EDT Narrative [facility] - 01/26/2025 2:30 PM EDT High [...] BLOOD ORDERABLES Final Result Performing Organization Address [facility] Co de Phone Number [facility]
[address] [place] [address], * (ABNORMAL) Urinalysis, Microscopic Only - Indwelling Urethral Catheter (01/26/2025 1:53 PM EDT) RBC, UA 3-5(A) None Seen, 0-2 /HPF 01/26/2025 2:28 PM EDT [facility] WBC, UA 3-5(A) None Seen, 0-2 /HPF 01/26/2025 2:28 PM EDT [facility] Comment:Urine culture not in dicated. Bacteria, UA None Seen None Seen /HPF 01/26/2025 2:28 PM EDT [facility] Squamous Epithelial Cells, UA 0-2 None Seen, 0-2 /HPF 01/26/2025 2:28 PM EDT [facility] Hyaline Casts, UA 0-2 None Seen /LPF 01/26/2025 2:28 PM EDT [facility] Methodology Automated Microscopy 01/26/2025 2:28 PM EDT [facility] Urine (Indwelling Urethral Catheter) Collection / Unknown 01/26/2025 1:53 PM EDT 01/26/2025 2:15 PM EDT Daniel Ocampo MD URINE ORDERABLES Final Res ult [facility]
[address] [place] [address], * (ABNORMAL) Urinalysis With Culture If Indicated - Indwelling Urethral Catheter (01/26/2025 1:53 PM EDT) Color, UA Yellow Yellow, Straw 01/26/2025 2:28 PM EDT [facility] Appearance, UA Clear Clear 01/26/2025 2:28 PM EDT [facility] pH, UA 6.0 5.0 - 8.0 01/26/2025 2:28 PM EDT [facility] Specific [place], UA >1.030(H) 1.005 - 1.030 01/26/2025 2:28 PM EDT [facility] Glucose, UA >=1000 mg/dL (3+)(A) Negative 01/26/2025 2:28 PM EDT [facility] Ketones, UA Negative Negative 01/26/2025 2:28 PM EDT [facility] Bilirubin, UA Negative Negative 01/26/2025 2:28 PM EDT [facility] Blood, UA Trace(A) Negative 01/26/2025 2:28 PM EDT [facility] Protein, UA Trace(A) Negative 01/26/2025 2:28 PM EDT [facility] Leuk Esterase, UA Negative Negative 01/26/2025 2:28 PM EDT [facility] Nitrite, UA Negative Negative 01/26/2025 2:28 PM EDT [facility] Urobilinogen, UA 0.2 E.U./dL 0.2 - 1.0 E.U./dL 01/26/2025 2:28 PM EDT [facility] Urine (Indwelling Urethral Catheter) Collection / Unknown 01/26/2025 1:53 PM EDT 01/26/2025 2:15 PM EDT [facility] - 01/26/2025 2:28 PM EDT In absence of clinical symptoms, the presence of pyuria, bacteria, and/or nitrites on the urinalysis result does not correlate with infection. us Daniel Ocampo MD URINE ORDERABLES Final Res ult [facility]
[address] [place] [address], * Urine Drug Screen - Indwelling Urethral Catheter (01/26/2025 1:53 PM EDT) THC, Screen, Urine Negative Negative 2024 2:30 PM EDT [facility] Phencyclidine (PCP), Urine Negative Negative 01/26/2025 2:30 PM EDT [facility] Cocaine Screen, Urine Negative Negative 01/26/2025 2:30 PM EDT [facility] Methamphetamine, Ur Negative Negative 01/26 2:30 PM EDT [facility] Opiate Screen Negative Negative 01/26/2025 2:30 PM EDT [facility] Amphetamine Screen, Urine Negative Negative 01/26/2025 2:30 PM EDT [facility] Benzodiazepine Screen, Urine Negative Negative 01/26/2025 2:30 PM EDT [facility] Tricyclic Antidepressants Screen Negative Negative 01/26/2025 2:30 PM EDT [facility] Methadone Screen, Urine Negative Negative 01/26/2025 2:30 PM EDT [facility] Barbiturates Screen, Urine Negative Negative 01/26/2025 2:30 PM EDT [facility] Oxycodone Screen, Urine Negative Negative 01/26/2025 2:30 PM EDT [facility] Buprenorphine, Screen, Urine Negative Negative 01/26/2025 2:30 PM EDT [facility] Urine (Indwelling Urethral Catheter) Collection / Unknown 01/26/2025 1:53 PM EDT 01/26/2025 2:15 PM EDT [facility] - 01/26/2025 2:30 PM EDT Cutoff [...] ORDERABLES Final Res ult Performing Organization Address [facility] Co de Phone Number [facility]
[address] [place] [address], * Fentanyl, Urine - Indwelling Urethral Catheter (01/26/2025 1:53 PM EDT) Fentanyl, Urine Negative Negative 01/26/2025 3:27 PM EDT [facility] Urine (Indwelling Urethral Catheter) Collection / Unknown 01/26/2025 1:53 PM EDT 01/26/2025 2:15 PM EDT Narrative [facility] - 01/26/2025 3:27 PM EDT Negative [...] ORDERABLES Final Res ult Performing Organization Address [facility] de Phone Number [facility]
[address] [place] [address], * CT CEREBRAL PERFUSION WITH & WITHOUT [...] MD 01/26/2025 1:57 PM EDT Workstation ID: [id number] Narrative 01/26/2025 1:[address] CEREBRAL [...] MD 01/26/2025 1:57 PM EDT Workstation ID: [id number] Diana Garcia APRN IMG CT ORDERABLES Final [...] Please refer to dedicated Electronically Signed: Ramin oDw MD 01/26/2025 1:57 PM EDT Workstation ID: [id number] Narrative 01/26/2025 1:[address] CEREBRAL [...] MD 01/26/2025 1:57 PM EDT Workstation ID: [id number] Diana Garcia APRN IM CT ORDERABLES Final R esult * CT [...] MD 01/26/2025 1:57 PM EDT Workstation ID: [id number] Narrative 01/26/2025 1:[address] CEREBRAL [...] MD 01/26/2025 1:57 PM EDT Workstation ID: [id number] Diana Garcia VACUUM PAN TENDER IMG CT ORDERABLES Final R esult * [...] MD 01/26/2025 2:17 PM EDT Workstation ID: [id number] Narrative 01/26/2025 2:[address] ABDOMEN [...] MD 01/26/2025 2:17 PM EDT Workstation ID: [id number] Daniel Ocampo MD IM CT ORDERABLES Final Re sult * CT [...] MD 01/26/2025 2:17 PM EDT Workstation ID: [id number] Narrative 01/26/2025 2:[address] ABDOMEN [...] MD 01/26/2025 2:17 PM EDT Workstation ID: [id number] Daniel Ocampo MD IM CT ORDERABLES Final Re sult * CT [...] MD 01/26/2025 1:08 PM EDT Workstation ID: [id number] Narrative 01/26/2025 1:[address] HEAD [...] MD 01/26/2025 1:08 PM EDT Workstation ID: [id number] Daniel Ocampo MD IMG CT ORDERABLES Final Re sult * Telemetry Scan (01/26/2025 12:18 PM EDT) [facility] ECG ORDERABLES Final Result * ECG 12 [...] By: edmd Confirmed By: Rafita Ocampo MD Daniel Ocampo MD ECG ORDERABLES Final Resu lt ECG * Respiratory Panel PCR w/COVID-19(SARS-CoV-2) SAMREEN/PIETRO/NA/PAD/COR/ALEXANDRE In-House, BUSINESS CENTER REPRESENTATIVE Swab in UTM/VTM, 2 HR TAT - Swab, Nasopharynx (01/26/2025 12:06 PM EDT) ADENOVIRUS, PCR Not Detected Not Detected BIOFIRE TOR 01/26/2025 1:07 PM EDT [facility] Coronavirus 229E Not Detected Not Detected BIOFIRE TOR 01/26/2025 1:07 PM EDT [facility] Coronavirus HKU1 Not Detected Not Detected BIOFIRE TOR 01/26/2025 1:07 PM EDT [facility] Coronavirus NL63 Not Detected Not Detected BIOFIRE TOR 01/26/2025 1:07 PM EDT [facility] Coronavirus OC43 Not Detected Not Detected BIOFIRE TOR 01/26/2025 1:07 PM EDT [facility] COVID19 Not Detected Not Detected - Ref. Range BIOFIRE TOR 01/26/2025 1:07 PM EDT [facility] Human Metapneumovirus Not Detected Not Detected BIOFIRE TOR 01/26/2025 1:07 PM EDT [facility] Human Rhinovirus/Enterov irus Not Detected Not Detected BIOFIRE TOR 01/26/2025 1:07 PM EDT [facility] Influenza A PCR Not Detected Not Detected BIOFIRE TORCH 01/26/2025 1:07 PM EDT [facility] Influenza B PCR Not Detected Not Detected BIOFIRE TORCH 01/26/2025 1:07 PM EDT [facility] Parainfluenza Virus 1 Not Detected Not Detected BIOFIRE TORCH 01/26/2025 1:07 PM EDT [facility] Parainfluenza Virus 2 Not Detected Not Detected BIOFIRE TORCH 01/26/2025 1:07 PM EDT [facility] Parainfluenza Virus 3 Not Detected Not Detected BIOFIRE TORCH 01/26/2025 1:07 PM EDT [facility] Parainfluenza Virus 4 Not Detected Not Detected BIOFIRE TORCH 01/26/2025 1:07 PM EDT [facility] RSV, PCR Not Detected Not Detected BIOFIRE TORCH 01/26/2025 1:07 PM EDT [facility] Bordetella pertussis pcr Not Detected Not Detected BIOFIRE TORCH 01/26/2025 1:07 PM EDT [facility] Bordetella parapertussis PCR Not Detected Not Detected BIOFIRE TORCH 01/26/2025 1:07 PM EDT [facility] Chlamydophila pneumoniae PCR Not Detected Not Detected BIOFIRE TORCH 01/26/2025 1:07 PM EDT [facility] Mycoplasma pneumo by PCR Not Detected Not Detected BIOFIRE TORCH 01/26/2025 1:07 PM EDT [facility] Swab Nasopharyngeal structure / Unknown Collection / Unknown 01/26/2025 12:06 PM EDT 01/26/2025 12:17 PM EDT [facility] - 01/26/2025 1:07 PM EDT In [...] ORD ERABLES Final Result Performing Organization Address City/[facility] Co de Phone Number [facility]
[address] [place] [address], [place] [phone] * Ammonia (01/26/2025 12:02 PM EDT) Pathologist [facility] Ammonia 22 16 - 60 umol/L 01/26/2025 1:32 PM EDT [facility] Blood Structure of right upper limb / Unknown Venipuncture / Unknown 01/26/2025 12:02 PM EDT 01/26/2025 1:19 PM EDT Daniel Ocampo MD LAB BLOOD ORDERABLES Final Result Performing Organization Address [facility] de Phone Number [facility]
[address] [place] [address], [place] [phone] * Blood Culture - Blood, Arm, Left (01/26/2025 12:00 PM EDT) Only the most recent of2 resultswithin the time period is included. [facility] Blood Culture No growth at 5 days 01/31/2025 1:30 PM EDT [facility] Blood Structure of left upper limb / Unknown Venipuncture / Unknown 01/26/2025 12:00 PM EDT 01/26/2025 1:21 PM EDT Narrative [facility] - 01/31/2025 1:30 PM EDT Less than seven (7) mL's of blood was collected. Insufficient quantity may yield false negative results. Daniel Ocampo MD MICROBIOLOGY - GENERAL ORD ERABLES Final Result Performing Organization Address [facility] Co de Phone Number [facility]
[address] [place] [address], [place] [phone] * (ABNORMAL) POC CHEM 8 (01/26/2025 11:48 AM EDT) Glucose 120 70 - 130 mg/dL 01/26/2025 11:55 AM EDT [facility] BUN 14 8 - 26 mg/dL 01/26/2025 11:55 AM EDT [facility] Creatinine 1.00 0.60 - 1.30 mg/dL 01/26/2025 11:55 AM EDT [facility] Sodium 142 138 - 146 mmol/L 01/26/2025 11:55 AM EDT [facility] POC Potassium 4.0 3.5 - 4.9 mmol/L 01/26/2025 11:55 AM EDT [facility] Chloride 103 98 - 109 mmol/L 01/26/2025 11:55 AM EDT [facility] Total CO2 25 24 - 29 mmol/L 01/26/2025 11:55 AM EDT [facility] Hemoglobin 15.6 12.0 - 17.0 g/dL 01/26/2025 11:55 AM EDT [facility] Comment:Serial Number: [id number] 1Operator: [id number] Hematocrit 46 38 - 51 % 01/26/2025 11:55 AM EDT [facility] Ionized Calcium 1.36(H) 1.20 - 1.32 mmol/L 01/26/2025 11:55 AM EDT [facility] eGFR 82.5 >60.0 mL/min/1.7 3 01/26/2025 11:55 AM EDT [facility] Blood 01/26/2025 11:4 8 AM EDT 01/26/2025 11:55 AM EDT Daniel Ocampo MD POINT OF CARE TEST ORDERAB LES Final Result [facility]
[address] [place] [address], * Escudero Top (01/26/2025 11:42 AM EDT) Extra Tube Hold for add-ons. 01/26/2025 12:00 PM EDT [facility] Comment:Auto resulted. Blood Venipuncture / Unknown 01/26/2025 11:42 AM EDT 01/26/2025 11:52 AM EDT Daniel Ocampo MD LAB BLOOD ORDER ONLY Final Result Performing Organization Address City/[facility] Co de Phone Number [facility]
[address] [place] [address], * (ABNORMAL) TSH Rfx On Abnormal To Free T4 (01/26/2025 11:42 AM EDT) TSH 5.390(H) 0.270 - 4.200 uIU/mL 01/26/2025 12:40 PM EDT [facility] Blood Venipuncture / Unknown 01/26/2025 11:42 AM EDT 01/26/2025 11:52 AM EDT Daniel Ocampo MD LAB BLOOD ORDERABLES Final Result Performing Organization Address [facility] Co de Phone Number [facility]
[address] [place] [address], * Gold Top - SST (01/26/2025 11:42 AM EDT) Extra Tube Hold for add-ons. 01/26/2025 12:00 PM EDT [facility] Comment:Auto resulted. Blood Venipuncture / Unknown 01/26/2025 11:42 AM EDT 01/26/2025 11:52 AM EDT Daniel Ocampo MD LAB BLOOD ORDER ONLY Final Result Performing Organization Address City/[facility]/ZIP Co de Phone Number [facility]
[address] [place] [address], * Green Top (Gel) (01/26/2025 11:42 AM EDT) Extra Tube Hold for add-ons. 01/26/2025 12:00 PM EDT [facility] Comment:Auto resulted. Blood Venipuncture / Unknown 01/26/2025 11:42 AM EDT 01/26/2025 11:52 AM EDT Daniel Ocampo MD LAB BLOOD ORDER ONLY Final Result [facility]
[address] [place] [address], * Procalcitonin (01/26/2025 11:42 AM EDT) Procalcitonin 0.07 0.00 - 0.25 ng/mL 01/26/2025 1:32 PM EDT [facility] Blood Venipuncture / Unknown 01/26/2025 11:42 AM EDT 01/26/2025 11:52 AM EDT Narrative [facility] - 01/26/2025 1:32 PM EDT As [...] Day 4 values are available. Refer to http://www.etewgg-wtt-xlqzeevhxq.com Change in PCT <=80% A decrease of [...] BLOOD ORDERABLES Final Result Performing Organization Address City/[facility] Co de Phone Number [facility]
[address] [place] [address], * Lavender Top (01/26/2025 11:42 AM EDT) Extra Tube hold for add-on 01/26/2025 12:00 PM EDT [facility] Comment:Auto resulted Blood Venipuncture / Unknown 01/26/2025 11:42 AM EDT 01/26/2025 11:52 AM EDT Daniel Ocampo MD LAB BLOOD ORDER ONLY Final Result Performing Organization Address [facility] de Phone Number [facility]
[address] [place] [address], [place] [phone] * Light Blue Top (01/26/2025 11:42 AM EDT) Extra Tube Hold for add-ons. 01/26/2025 12:00 PM EDT [facility] Comment:Auto resulted Blood Venipuncture / Unknown 01/26/2025 11:42 AM EDT 01/26/2025 11:52 AM EDT Daniel Ocampo MD LAB BLOOD ORDER ONLY Final Result Performing Organization Address [facility] de Phone Number [facility]
[address] [place] [address], * High Sensitivity Troponin T (01/26/2025 11:42 AM EDT) [facility] HS Troponin T 11 <22 ng/L 01/26/2025 12:19 PM EDT [facility] Blood Venipuncture / Unknown 01/26/2025 11:42 AM EDT 01/26/2025 11:52 AM EDT [facility] - 01/26/2025 12:19 PM EDT High [...] Ocampo MD LAB BLOOD ORDERABLES Final Result [facility]
[address] [place] [address], * BNP (01/26/2025 11:42 AM EDT) [facility] proBNP 93.0 0.0 - 900.0 pg/mL 01/26/2025 12:40 PM EDT [facility] Blood Venipuncture / Unknown 01/26/2025 11:42 AM EDT 01/26/2025 11:52 AM EDT [facility] - 01/26/2025 12:40 PM EDT This [...] BLOOD ORDERABLES Final Result Performing Organization Address [facility] Co de Phone Number [facility]
[address] [place] [address], * Lactic Acid, Plasma (01/26/2025 11:42 AM EDT) Lactate 1.8 0.5 - 2.0 mmol/L 01/26/2025 12:12 PM EDT [facility] Comment:Falsely depressed re sults may occur on samples drawn from patients receiving N-Acetylcysteine (NAC) or Metamizole. Blood Venipuncture / Unknown 01/26/2025 11:42 AM EDT 01/26/2025 11:52 AM EDT Daniel Ocampo MD LAB BLOOD ORDERABLES Final Result Performing Organization Address [facility] de Phone Number [facility]
[address] [place] [address], * Ethanol (01/26/2025 11:42 AM EDT) Ethanol <10 0 - 10 mg/dL 01/26/2025 12:28 PM EDT [facility] Blood Venipuncture / Unknown 01/26/2025 11:42 AM EDT 01/26/2025 11:52 AM EDT Narrative [facility] - 01/26/2025 12:28 PM EDT Not for legal purposes. Daniel Ocampo MD LAB BLOOD ORDERABLES Final Result Performing Organization Address [facility] Co de Phone Number [facility]
[address] [place] [address], * Acetaminophen Level (01/26/2025 11:42 AM EDT) Acetaminophen <5.0 0.0 - 30.0 mcg/mL 01/26/2025 12:33 PM EDT [facility] Blood Venipuncture / Unknown 01/26/2025 11:42 AM EDT 01/26/2025 11:52 AM EDT Daniel Ocampo MD LAB BLOOD ORDERABLES Final Result Performing Organization Address City/[facility] Co de Phone Number [facility]
[address] [place] [address], * Salicylate Level (01/26/2025 11:42 AM EDT) Salicylate <0.3 <=30.0 mg/dL 01/26/2025 12:33 PM EDT [facility] Blood Venipuncture / Unknown 01/26/2025 11:42 AM EDT 01/26/2025 11:52 AM EDT Daniel Ocampo MD LAB BLOOD ORDERABLES Final Result Performing Organization Address City/[facility] de Phone Number [facility]
[address] [place] [address], from Last 3 Months Insurance Advance Directives * CPR (Attempt to Resuscitate) (Latest Code Status on File) Date Activated Date Inactivated Comments 01/26/2025 3:02 PM 02/02/2025 6:02 PM Question Answer Comments Code Status (Patient has no pulse and is not breathing): CPR (Attempt to Resuscitate) Medical Interventions (Patie nt has pulse or is breathing): Full Support Care Teams Dolly Pusher Relationship Specialty Start Date End Date Provider, No Known [facility] [place] [address] PCP - General 01/26/25
[2025-04-08 13:36] LABS: Ammonia 9 umol/L (9-30)
[2025-04-08 13:45] LABS: Hematocrit 43.4 % (42.0-52.0); Hemoglobin 15.1 g/dL (14.1-18.0); Immature Granulocytes % 0.4 %; Mean Corpuscular HGB Conc 34.8 g/dL (31.8-35.4); Mean Corpuscular Hemoglobin 34.1 pg (27.0-31.2); Mean Corpuscular Volume 98.0 fl (80-94); Nucleated Red Blood Cells % 0 %; Platelet Count 193 K/mm3 (142-424); Red Blood Count 4.43 M/mm3 (4.60-6.20); Red Cell Distribution Width-SD 44.3 fL; White Blood Count 6.7 K/mm3 (4.8-10.8)
[2025-04-08 14:12] LABS: Hemoglobin A1C 5.2 % (4.0-6.0)
[2025-04-08 14:26] LABS: Alanine Aminotransferase 48 U/L (12-78); Albumin Level 4.1 g/dl (3.5-5.0); Albumin/Globulin Ratio 1.4 (1.1-1.8); Alkaline Phosphatase 98 U/L (38-126); Anion Gap 13.6 mEq/L (5-15); Aspartate Amino Transferase 48 U/L (17-59); Bilirubin,Total 1.0 mg/dl (0.2-1.3); Blood Urea Nitrogen 15 mg/dl (9-20); Calcium 9.7 mg/dl (8.4-10.2); Carbon Dioxide 25 mmol/L (22.0-30.0); Chloride 105 mmol/L (98-107); Creatinine,Serum 0.70 mg/dl (0.66-1.25); Estimated Glomerular Filt Rate 112 ml/min (>60); GFR (African American) 136 ML/MIN (>60); Globulin 3.0 g/dL (1.3-3.2); Glucose 118 mg/dl (74-100); Magnesium 1.8 mg/dl (1.6-2.3); Phosphorous 4.4 mg/dl (2.5-4.5); Potassium 4.6 mmoL/L (3.5-5.1); Sodium 139 mmol/L (136-145); Total Protein,Serum 7.1 g/dl (6.3-8.2)
[2025-04-08 15:11] LABS: Thyroid Stimulating Hormone 2.69 uIU/mL (0.465-4.68)
[2025-04-08 15:47] LABS: Iron 134 ug/dL (49-181)
[2025-04-08 15:48] LABS: Folate 16.30 ng/mL
[2025-04-08 15:56] LABS: Total Iron Binding Capacity 312 ug/dL (261-462)
[2025-04-08 16:24] LABS: Ferritin 131 ng/ml (17.9-464)
[2025-04-13 12:17] LABS: ALT (SGPT) P5P 43 IU/L (0-55); AST (SGOT) P5P 47 IU/L (0-40); Alpha 2-Macroglobulins, Qn 405 mg/dL (110-276); Bilirubin, Total 0.5 mg/dL (0.0-1.2); Cholesterol, Total 151 mg/dL (100-199); GGT 60 IU/L (0-65); Glucose 112 mg/dL (70-99); Triglycerides 140 mg/dL (0-149)
== END 2025-04-08 23:59 | disposition home or self-care (01) ==
LOC: LAB 13:09
PROVIDERS: PCP Nurse Practitioner Family; Visit Provider Nurse Practitioner Family
DX: K74.60 Unspecified cirrhosis of liver (principal); E11.69 Type 2 diabetes mellitus with other specified complication; E03.9 Hypothyroidism, unspecified; E83.39 Other disorders of phosphorus metabolism; D64.9 Anemia, unspecified
CPT/HCPCS: 36415; 80053; 82140; 82172; 82247; 82465; 82728; 82746; 82947; 82977; 83010; 83036; 83521; 83540; 83550; 83735; 84100; 84443; 84450; 84460; 84478; 85025

== ENCOUNTER 2025-04-26 08:30 | Outpatient (CLI) | payer MEDICARE, SELFPAY ==
--- NOTE | 2025-04-26 08:32 | US_ITS ---
FINAL REPORT TECHNIQUE: Sonographic images of the right upper quadrant were obtained. CLINICAL HISTORY: cirrhosis FINDINGS: PANCREAS: Obscured. LIVER: Demonstrates coarsened echotexture consistent with fatty infiltration. The liver is enlarged measuring 19 cm. No intrahepatic biliary ductal dilatation. GALLBLADDER: No gallstones. No gallbladder wall thickening or pericholecystic fluid. COMMON DUCT: 4 mm mm. Normal for age. RIGHT KIDNEY: The right kidney measures 10.9 x 5.7 cm. There is no hydronephrosis, mass, or stone. FREE FLUID: None. IMPRESSION: Enlarged fatty liver with coarsened architecture. Normal gallbladder with no ductal dilatation. Reviewed, Interpreted and Dictated by Willie Salinas MD Transcribed by RENEE Hankins Authenticated and . [facility]
--- OUTSIDE RECORDS SUMMARY | 2025-04-26 08:33 | XMS_ITS | Data Portability ---
Author Organization [facility]AT[facility]OS[facility] Address [address] [facility] [address] [place] [address] Assessment Encounter Date Assessment Date Assessment LastModified by Organization Details LastModified Time 10/16/2017 10/16/2017 Patient is not currently qualified due to vision. Additionally, patient reports a history of mini strokes in 2017. The waiting period is 1 year. 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 csuttor Not available 10/16/2017 12:20:34 Plan of Treatment Reminders Order Date Submit Date Provider Last Modified By Organization Details Last Modified Time Details Appointments None recorde d. Lab urinaly sis, dipstic k, auto 018 10/17/19 18 csuttor Not available 8 11:46:54 drug screen, urine 018 10/17/19 18 csuttor Not available 8 11:46:54 Referral None recorde d. Procedures None recorde d. Surgeries None recorde d. Imaging None recorde d. Medication Orders None recorde d. Patient TargetsNo targets recorded. Patient InstructionsNo instructions recorded. Reason for Referral None Reported. Results Created Date Observation Date Name Description Value Unit Range Abnormal Flag Note LastModifiedBy Organization Detail LastModifiedTime 10/17/19 18 10/16/2017 drug scree n, urine Marijuana (THC50) Negati ve Not Available Internal Medicine [address] , [place], [address], 10/16/2017 11:22:05 10/17/19 18 10/16/2017 drug scree n, urine Cocaine (PNC409) Negati ve Not Available Internal Medicine [facility] Closed [address] [place] [address] [address], [place], [address], 10/16/2017 11:22:05 10/17/19 18 10/16/2017 drug scree n, urine Opiates ([id number]) Negati ve Not Available Internal Medicine [address], [place], [address], 10/16/2017 11:22:05 10/17/19 18 10/16/2017 drug scree n, urine Amphetamine ([id number]) Negati ve Not Available Internal Medicine [address] , [place], [address], 10/16/2017 11:22:05 10/17/19 18 10/16/2017 drug scree n, urine Methamphetam ine ([id number]) Negati ve Not Available Internal Medicine [address], [place], [address], 10/16/2017 11:22:05 10/17/19 18 10/16/2017 drug scree n, urine Phencyclidin e (PCP25) Negati ve Not Available Internal Medicine [address], [place], [address], 10/16/2017 11:22:05 10/17/19 18 10/16/2017 drug scree n, urine Ectasy ([id number]) Negati ve Not Available Internal Medicine [address], [place], [address], 10/16/2017 11:22:05 10/17/19 18 10/16/2017 drug scree n, urine Barbituates (NCC790) Negati ve Not Available Internal Medicine [address] , [place], [address], 10/16/2017 11:22:05 10/17/19 18 10/16/2017 drug scree n, urine Benzodiazepi yan (NYU752) Negati ve Not Available Internal Medicine [address], [place], [address], 10/16/2017 11:22:05 10/17/19 18 10/16/2017 drug scree n, urine Methadone ([id number]) Negati ve Not Available Internal Medicine [address], [place], [address], 10/16/2017 11:22:05 10/17/19 18 10/16/2017 drug scree n, urine Tricyclic Antidepressa nts ([id number]) Negati ve Not Available Internal Medicine [address] , [place], [address], 10/16/2017 11:22:05 10/17/19 18 10/16/2017 drug scree n, urine Oxycodone (VFI292) Negati ve Not Available Internal Medicine [address], [place], [address], 10/16/2017 11:22:05 10/17/19 18 10/16/2017 drug scree n, urine Internal QC Okay Not Available Phys Assistant al Medicine [address], [place], [address], 10/16/2017 11:22:05 10/17/19 18 10/16/2017 urina lysis , dipst ick, auto Unknown Analyte Yellow Not Available [facility] [address], [place], [address], 10/16/2017 11:21:55 10/17/19 18 10/16/2017 urina lysis , dipst ick, auto Unknown Analyte Clear Not Available Phys Assistant [facility] Medicine [address] , [place], [address], 10/16/2017 11:21:55 10/17/19 18 10/16/2017 urina lysis , dipst ick, auto Unknown Analyte 1.015 Not Available Phys Assistant al Medicine [facility] [address] [facility] [address], [place], [address], 10/16/2017 11:21:55 10/17/19 18 10/16/2017 urina lysis , dipst ick, auto Unknown Analyte 6.5 Not Available Phys Assistant al Medicine [facility] [address] [facility] [address], [place], [address], 10/16/2017 11:21:55 10/17/19 18 10/16/2017 urina lysis , dipst ick, auto Unknown Analyte Negati ve Not Available Internal Medicine [facility] [address] [facility] [address], [place], [address], 10/16/2017 11:21:55 10/17/19 18 10/16/2017 urina lysis , dipst ick, auto Unknown Analyte Negati ve Not Available Internal Medicine [facility] [address] [facility] [address], [place], [address], 10/16/2017 11:21:55 10/17/19 18 10/16/2017 urina lysis , dipst ick, auto Unknown Analyte Negtiv e Not Available Internal Medicine [facility] [address] [facility] [address], [place], [address], 10/16/2017 11:21:55 10/17/19 18 10/16/2017 urina lysis , dipst ick, auto Unknown Analyte Normal Not Available Phys Assistant al Medicine [facility] [address] [facility] [address], [place], [address], 10/16/2017 11:21:55 10/17/19 18 10/16/2017 urina lysis , dipst ick, auto Unknown Analyte Negati ve Not Available Internal Medicine [facility] [address] [facility] [address], [place], [address], 10/16/2017 11:21:55 10/17/19 18 10/16/2017 urina lysis , dipst ick, auto Unknown Analyte Normal Not Available Phys Assistant al Medicine [facility] Closed [address] [facility] [address], [place], [address], 10/16/2017 11:21:55 10/17/19 18 10/16/2017 urina lysis , dipst ick, auto Unknown Analyte Negati ve Not Available Internal Medicine [facility] [address] [facility] [address] , [place], [address], 10/16/2017 11:21:55 10/17/19 18 10/16/2017 urina lysis , dipst ick, auto Unknown Analyte Negati ve Not Available Internal Medicine [facility] [address] [facility] [address] , [place], [address], 10/16/2017 11:21:55 10/17/19 18 10/16/2017 urina lysis , dipst ick, auto Unknown Analyte Automa daniel Not Available Internal Medicine [facility] [address] [facility] [address] , [place], [address], 10/16/2017 11:21:55 Result Notes None recorded. Problems Name Problem SNOMED Code Status Onset Date Resolution Date Notes Provider Name and Address Organization Details Recorded Time Hypertensive disorder 25488117 Active 2017 Alla carpenter [facility] 8 11:42:40 Hyperlipidemia 14513206 Active 2017 Alla carpenter [facility] 8 11:42:45 Notes:stroke - 2017 Problem Notes None recorded. Medical Equipment None Reported. Allergies No known drug allergies Medications Name Sig Start Date Stop Date Status Note LastModified by Organization Details LastModified Time furosemide 40 mg tablet Take 1 tablet every day by oral route. active Not Available Not Available No t Available carvedilol 6.25 mg tablet Take 1 tablet twice a day by oral route. active Not Available Not Available No t Available atorvastatin 10 mg tablet Take 1 tablet every day by oral route. active Not Available Not Available No t Available Klor-Con 20 mEq oral packet Take 1 milliequiva lent every day by oral route. active Not Available Not Available No t Available clopidogrel 75 mg tablet Take 1 tablet every day by oral route. active Not Available Not Available No t Available aspirin 81 mg tablet,delay ed release Take 1 tablet every day by oral route. active Not Available Not Available No t Available triamterene 37.5 mg-hydrochlo rothiazide 25 mg capsule Take 1 capsule every day by oral route. active Not Available Not Available No t Available nitroglyceri n 0.[address] 1 tablet as needed by sublingual route. active Not Available Not Available No t Available Vitamin D3 25 mcg (1,000 unit) capsule Take 1 capsule every day by oral route. active Not Available Not Available No t Available Multi Vitamin active Not Available Not Available Not Available Vitals Date Recorded Body height Body mass index (BMI) Body weight Body temperature Heart rate Respiratory rate Oxygen saturation Oxygen saturation in Arterial blood by Pulse oximetry Systolic And Diastolic Provider Name and Address Organization Details Last Updated DateTime 8 175.26 cm 47 kg/m2 720727. 07 g 97.9 [degF] 72 /min 16 /min 96 % 96 % 128/82 mm[Hg] Alla carpenter [facility] 8 11:37:42 Social History Question Answer Notes LastModified by Organizat ion Details LastModified Time Tobacco Smoking Status Never Smoker Alla ricci [facility] 10/16/2017 11:44:06 How Much Tobacco Do You Chew? 1/day [email or web address] Information not available 10/16/2017 What Was The Date Of Your Most Recent Tobacco Screening? 10/16/2017 Information n ot available 08/10/2019 Sex: Unknown Functional Status None recorded. Mental Status None recorded. Family History Nothing Reported. Medical History No medical history recorded. Past Encounters Encounter ID Performer Location Encounter Start Date Encounter Closed Date Diagnosis/Indication Diagnosis SNOMED-CT Code Diagnosis ICD10 Code Diagnosis IMO Codes Diagnosis Note [id number] KUMAR LANDRY MD INTERNAL MEDICINE [facility] CLOSED [address] [facility] [address] 10/16/2017 10:50:38 10/16/2017 13:18:32 Adult health examination 227891471 Z00.00 Health Concerns Section Related Observation LastModified by Organization Detai ls LastModified Time None Recorded Concern Status LastModified by Organization Details LastModified Time None Recorded Advance Directives Directive None Recorded Payers Insurance Date Sequence Insurance Name Policy Number Policy Yin Covered Member ID Yin Member ID Guarantor Name 10/16/2017 [facility] [employer] Charles Myers [id number] Charles Myers Notes Date Note Type Note Provider Name and Address Organization Details Recorded Time 10/16/2017 text/html [facility] KEIKO JOHN DOT PE 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 KUMAR LANDRY MD [address] [place] [address], [address], [facility] 10/16/2017 12:21:07
--- OUTSIDE RECORDS SUMMARY | 2025-04-26 08:33 | XMS_ITS | Clinical Summary ---
Author Organization [facility] Address [address] [place] [address] Care Team Providers Care Plaster Pattern Caster Name Role Phone Ifeanyi Carlos MD Primary Care Provider [phone] Social History Tobacco Use Types Packs/Day Years [...] UKY-Zoster Vaccines (2 of 2) 12/08/2018 10/13/2018 [id number] Vaccine (1 - 20 24-25 season) 2025 [...] age to complete this topic Care Teams Plaster Pattern Caster Relationship Specialty Start Date End Date Ifeanyi Carlos MD [address] [place] Mohamud [id number] PCP - General 11/03/20
--- OUTSIDE RECORDS SUMMARY | 2025-04-26 08:34 | XMS_ITS | Clinical Summary ---
Author Organization [facility] Address [address] [place] [id number] Care Team Providers Care Pathology Secretary/Transcriptionist Name Role Phone Provider, No Known Primary [...] (06/05/2021): Added automatically from request for surgery [id number] Hyperlipidemia 10/16/2017 Resolved Problems Problem Noted Date Diagnosed Date Resolved Date Altered mental status 01/26/20252024 Encounters Date Type Department Care Team Description 02/24/2025 Readmission Management [facility] [address] [place] [address] Ellen Hunter, ALISA 02/15/2025 Readmission Management [facility] [address] [place] [address] Lacey Brown, ALISA 02/04/2025 Readmission Management [facility] [address] [place] [id number] Marli Bob RN 02/03/2025 Readmission Management [facility] [address] [place] [address] Jocy Eaton 01/26/2025 11:34 AM EDT - 02/02/2025 1:30 PM EDT Hospital Encounter [address] [place] [address] Daniel Ocampo MD Tzouanakis, Alexander E, MD Goldstein, Joshua, MD Russell, Marc P, MD Altered mental status, unspecified altered mental status type (Primary Dx); Acute encephalopathy; Acute respiratory failure, unspecified whether with hypoxia or hypercapnia; Dysphagia, unspecified type; Obesity, morbid, BMI 40.0-49.9; Encephalopathy, metabolic; Hypophosphatemia; Transient alteration of awareness; Essential hypertension; Asymptomatic stenosis of right vertebral artery Discharge Disposition: Home-Health Care [facility] [place] 01/26/2025 Travel from Last 3 Months Family [...] or training? Not on file Preferred Language Nepalese 01/27/2025 Sex and Gender Information Value Date [...] Health Maintenance Due Date Last Done Comments COVID-19 Vaccine (#1) 1962 DIABETIC EYE EXAM 1967 DIABETIC FOOT EXAM 1967 URINE MICROALBUMIN-CREATININE RATIO (uACR) 1967 TDAP/TD VACCINES (1 - Tdap) 1976 COLOGUARD 2002 COLON CANCER SCREENING 5 ARAM Brower SIGMOIDOSCOPY 2002 COLONOSCOPY 2002 COLORECTAL CANCER SCREENING 2002 CT COLONOGRAPHY 2002 FECAL OCCULT BLOOD TEST 2002 FIT Testing (1 year) 2002 ANNUAL WELLNESS VISIT 06/04/2021 HEPATITIS C SCREENING 06/04/2021 INFLUENZA VACCINE 01/21/2025 HEMOGLOBIN A1C 07/30/2025 01/27/2025 LIPID PANEL 01/27/2026 [...] ED INTUBATION Routine 01/26/2025 5:27 PM EDT NE CRITICAL CARE ILL/INJURED PATIENT INIT 30-74 MIN [...] EDT RESPIRATORY PANEL PCR W/ COVID-19 (SARS-COV-2), CAR TRACER SWAB IN UTM/VTP, 2 HR TAT STAT 01/26/2025 12:06 PM EDT AMMONIA STAT 01/26/2025 12:02 PM EDT BLOOD CULTURE STAT 01/26/2025 12:00 PM EDT POCT [id number]-HB-H CT STAT 01/26/2025 11:48 AM EDT LIGHT [...] - 4.5 mg/dL 02/02/2025 11:00 AM EDT [facility] Blood Venipuncture / Unknown 02/02/2025 9:58 AM EDT 02/02/2025 10:20 AM EDT us Heron Abdul MD LAB BLOOD ORDERABLES Final R esult Performing Organization Address City/[facility]/ZIP Co de Phone Number [facility]
[address] [place] [address], * Magnesium (02/02/2025 9:58 AM EDT) Only the most recent of8 resultswithin the time period is included. Magnesium 2.1 1.6 - 2.4 mg/dL 02/02/2025 11:00 AM EDT [facility] Blood Venipuncture / Unknown 02/02/2025 9:58 AM EDT 02/02/2025 10:20 AM EDT us Heron Abdul MD LAB BLOOD ORDERABLES Final R esult Performing Organization Address City/[facility] Co de Phone Number [facility]
[address] [place] [address], [place] [phone] * (ABNORMAL) Basic Metabolic Panel (02/02/2025 9:58 AM EDT) Only the most recent of5 resultswithin the time period is included. Glucose 143(H) 65 - 99 mg/dL 02/02/2025 11:00 AM T [facility] BUN 8.6 8.0 - 23.0 mg/dL 02/02/2025 11:00 AM T [facility] Creatinine 0.61(L) 0.76 - 1.27 mg/dL 02/02/2025 11:00 AM [facility] Sodium 140 136 - 145 mmol/L 02/02/2025 11:00 AM [facility] Potassium 3.7 3.5 - 5.2 mmol/L 02/02/2025 11:00 AM [facility] Chloride 106 98 - 107 mmol/L 02/02/2025 11:00 AM [facility] CO2 23.5 22.0 - 29.0 mmol/L 02/02/2025 11:00 AM [facility] Calcium 9.0 8.6 - 10.5 mg/dL 02/02/2025 11:00 AM [facility] BUN/Creatinine Ratio 14.1 7.0 - 25.0 02/02/2025 11:00 AM [facility] Anion Gap 10.5 5.0 - 15.0 mmol/L 02/02/2025 11:00 AM [facility] eGFR 105.3 >60.0 mL/min/1.7 3 02/02/2025 11:00 AM [facility] Blood Venipuncture / Unknown 02/02/2025 9:58 AM EDT 02/02/2025 10:20 AM EDT [facility] - 02/02/2025 11:00 AM EDT [...] MD LAB BLOOD ORDERABLES Final R esult [facility]
[address] [place] [address], * (ABNORMAL) CBC Auto Differential (02/02/2025 8:50 AM EDT) Only the most recent of8 resultswithin the time period is included. WBC 6.20 3.40 - 10.80 10*3/mm3 02/02/2025 9:17 AM EDT [facility] RBC 4.20 4.14 - 5.80 10*6/mm3 02/02/2025 9:17 AM EDT [facility] Hemoglobin 14.1 13.0 - 17.7 g/dL 02/02/2025 9:17 AM EDT [facility] Hematocrit 40.5 37.5 - 51.0 % 02/02/2025 9:17 AM EDT [facility] MCV 96.4 79.0 - 97.0 fL 02/02/2025 9:17 AM EDT [facility] MCH 33.6(H) 26.6 - 33.0 pg 02/02/2025 9:17 AM EDT [facility] MCHC 34.8 31.5 - 35.7 g/dL 02/02/2025 9:17 AM EDT [facility] RDW 12.9 12.3 - 15.4 % 02/02/2025 9:17 AM EDT [facility] RDW-SD 45.5 37.0 - 54.0 fl 02/02/2025 9:17 AM EDT [facility] MPV 9.6 6.0 - 12.0 fL 02/02/2025 9:17 AM [facility] Platelets 143 140 - 450 10*3/mm3 02/02/2025 9:17 AM [facility] Neutrophil % 52.0 42.7 - 76.0 % 02/02/2025 9:17 AM [facility] Lymphocyte % 30.3 19.6 - 45.3 % 02/02/2025 9:17 AM [facility] Monocyte % 10.3 5.0 - 12.0 % 02/02/2025 9:17 AM [facility] Eosinophil % 3.4 0.3 - 6.2 % 02/02/2025 9:17 AM [facility] Basophil % 0.6 0.0 - 1.5 % 02/02/2025 9:17 AM [facility] Immature Grans % 3.4(H) 0.0 - 0.5 % 02/02/2025 9:17 AM [facility] Neutrophils, Absolute 3.22 1.70 - 7.00 10*3/mm3 02/02/2025 9:17 AM [facility] Lymphocytes, Absolute 1.88 0.70 - 3.10 10*3/mm3 02/02/2025 9:17 AM [facility] Monocytes, Absolute 0.64 0.10 - 0.90 10*3/mm3 02/02/2025 9:17 AM [facility] Eosinophils, Absolute 0.21 0.00 - 0.40 10*3/mm3 02/02/2025 9:17 AM [facility] Basophils, Absolute 0.04 0.00 - 0.20 10*3/mm3 02/02/2025 9:17 AM [facility] Immature Grans, Absolute 0.21(H) 0.00 - 0.05 10*3/mm3 02/02/2025 9:17 AM [facility] nRBC 0.0 0.0 - 0.2 /100 WBC 02/02/2025 9:17 AM EDT [facility] Blood Venipuncture / Unknown 02/02/2025 8:50 AM EDT 02/02/2025 8:57 AM EDT Heron Abdul MD LAB BLOOD ORDERABLES Final R esult [facility]
[address] [place] [address], * XR Chest 1 View (02/02/2025 4:26 AM EDT) Only the most recent of8 resultswithin the time period is included. Anatomical Region Laterality Modality Body N/A Radiographic Cristine ging 02/02/2025 7:40 AM EDT Impressions 02/02/2025 7:43 AM EDT Impression: No evidence of pneumonia. Electronically Signed: Zack Francois MD 02/02/2025 7:43 AM EDT Workstation ID: [id number] Narrative 02/02/2025 7:43 AM EDT XR CHEST [...] MD 02/02/2025 7:43 AM EDT Workstation ID: [id number] Heron Abdul MD IMG DIAGNOSTIC IMAGING ORDER DANIELLA Final Result * Potassium (01/31/2025 12:59 PM EDT) Potassium 4.4 3.5 - 5.2 mmol/L 01/31/2025 1:38 PM EDT [facility] Blood Venipuncture / Unknown 01/31/2025 12:59 PM EDT 01/31/2025 1:10 PM EDT Shawn Savage APRN LAB BLOOD ORDERABLES Roxanna l Result [facility]
[address] [place] [address], * TSH (01/30/2025 3:41 AM EDT) Pathologist [facility] TSH 1.180 0.270 - 4.200 uIU/mL 01/30/2025 2:15 PM EDT [facility] Blood Venipuncture / Unknown 01/30/2025 3:41 AM EDT 01/30/2025 4:03 AM EDT Heron Abdul MD LAB BLOOD ORDERABLES Final R esult [facility]
[address] [place] [address], * T4, Free (01/30/2025 3:41 AM EDT) Only the most recent of2 resultswithin the time period is included. Free T4 1.16 0.92 - 1.68 ng/dL 01/30/2025 2:15 PM EDT [facility] Blood Venipuncture / Unknown 01/30/2025 3:41 AM EDT 01/30/2025 4:03 AM EDT Heron Abdul MD LAB BLOOD ORDERABLES Final R esult Performing Organization Address City/State/[facility] Co de Phone Number [facility]
[address] [place] [address], * POC Glucose Once (01/29/2025 7:09 AM EDT) Only the most recent of12 resultswithin the time period is included. Glucose 119 70 - 130 mg/dL 01/29/2025 7:12 AM EDT [facility] Blood 01/29/2025 7:09 AM EDT 01/29/2025 7:12 AM EDT Heron Abdul MD POINT OF CARE TEST ORDERABLE S Final Result Performing Organization Address [facility] de Phone Number [facility]
[address] [place] [address], * (ABNORMAL) C-reactive Protein (01/28/2025 4:17 AM EDT) C-Reactive Protein 4.31(H) 0.00 - 0.50 mg/dL 01/28/2025 4:55 AM EDT [facility] Blood Line / Unknown 01/28/2025 4: 17 AM EDT 01/28/2025 4:23 AM EDT Heron Abdul MD LAB BLOOD ORDERABLES Final R esult Performing Organization Address City/[facility] Co de Phone Number [facility]
[address] [place] [address], * (ABNORMAL) Prealbumin (01/28/2025 4:17 AM EDT) Prealbumin 17.7(L) 20.0 - 40.0 mg/dL 01/28/2025 10:09 AM EDT [facility] Blood Line / Unknown 01/28/2025 4: 17 AM EDT 01/28/2025 4:23 AM EDT us Heron Abdul MD LAB BLOOD ORDERABLES Final R esult [facility]
[address] [place] [address], [place] [phone] * (ABNORMAL) Comprehensive Metabolic Panel (01/28/2025 4:17 AM EDT) Only the most recent of3 resultswithin the time period is included. Glucose 124(H) 65 - 99 mg/dL 01/28/2025 8:51 AM EDT [facility] BUN 15.2 8.0 - 23.0 mg/dL 01/28/2025 8:51 AM EDT [facility] Creatinine 0.90 0.76 - 1.27 mg/dL 01/28/2025 8:51 AM EDT [facility] Sodium 144 136 - 145 mmol/L 01/28/2025 8:51 AM EDT [facility] Potassium 4.0 3.5 - 5.2 mmol/L 01/28/2025 8:51 AM EDT [facility] Comment:Slight hemolysis det ected by analyzer. Result may be falsely elevated. Chloride 110(H) 98 - 107 mmol/L 01/28/2025 8:51 AM EDT [facility] CO2 19.0(L) 22.0 - 29.0 mmol/L 01/28/2025 8:51 AM EDT [facility] Calcium 9.3 8.6 - 10.5 mg/dL 01/28/2025 8:51 AM EDT [facility] Total Protein 7.3 6.0 - 8.5 g/dL 01/28/2025 8:51 AM EDT [facility] Albumin 3.9 3.5 - 5.2 g/dL 01/28/2025 8:51 AM EDT [facility] ALT (SGPT) 28 1 - 41 U/L 01/28[facility]2025 8:[facility] AST (SGOT) 31 1 - 40 U/L 01/28/2025 8:51 AM EDT [facility] Alkaline Phosphatase 86 39 - 117 U/L 01/28/2025 8:51 AM EDT [facility] Total Bilirubin 1.0 0.0 - 1.2 mg/dL 01/28/2025 8:51 AM EDT [facility] Globulin 3.4 gm/dL 01/28/2025 8:51 AM EDT [facility] Comment:Calculated Result A/G Ratio 1.1 g/dL 01/28/2025 8:51 AM EDT [facility] BUN/Creatinine Ratio 16.9 7.0 - 25.0 01/28/2025 8:51 AM EDT [facility] Anion Gap 15.0 5.0 - 15.0 mmol/L 01/28/2025 8:51 AM EDT [facility] eGFR 93.6 >60.0 mL/min/1.7 3 01/28/2025 8:51 AM EDT [facility] Blood Line / Unknown 01/28/2025 4: 17 AM EDT 01/28/2025 4:23 AM EDT [facility] - 01/28/2025 8:51 AM EDT [...] MD LAB BLOOD ORDERABLES Final R esult [facility]
[address] [place] [address], * (ABNORMAL) Blood Gas, Arterial With Co-Ox (01/28/2025 3:33 AM EDT) Only the most recent of4 resultswithin the time period is included. Site Right Radial 01/28/2025 3:34 AM EDT [facility] THERAPY Michele's Test N/A 01/28/2025 3:34 AM EDT [facility] THERAPY pH, Arterial 7.430 7.350 - 7.450 pH units 01/28/2025 3:34 AM EDT [facility] THERAPY pCO2, Arterial 31.7(L) 35.0 - 45.0 mm Hg 01/28/2025 3:34 AM EDT [facility] Comment:84 Value below refer ence range pO2, Arterial 73.6(L) 83.0 - 108.0 mm Hg 01/28/2025 3:34 AM EDT [facility] THER[facility] Comment:84 Value below refer ence range HCO3, Arterial 21.0 20.0 - 26.0 mmol/L 01/28/2025 3:34 AM EDT [facility] THERAPY Base Excess, Arterial -2.3(L) 0.0 - 2.0 mmol/L 01/28/2025 3:34 AM EDT [facility] THER[facility] Hemoglobin, Blood Gas 14.8 13.5 - 17.5 g/dL 01/28/2025 3:34 AM EDT [facility] THERAP[facility] Hematocrit, Blood Gas 45.4 38.0 - 51.0 % 01/28/2025 3:34 AM EDT [facility] THER[facility] Oxyhemoglobin 94.3 94 - 99 % 01/28/2025 3:34 AM EDT [facility] Methemoglobin 0.40 0.00 - 1.50 % 01/28/2025 3:34 AM EDT [facility] Carboxyhemoglobin 1.1 0 - 2 % 025 3:34 AM EDT [facility] THER[facility] CO2 Content 22.0 22 - 33 mmol/L 01/28/2025 3:34 AM EDT [facility] THERAPY Temperature 37.0 01/28/2025 3:34 AM EDT [facility] THERAPY Barometric Pressure for Blood Gas 01/28/2025 3:34 AM EDT [facility] Comment:N/A Modality Ventilator 01/28/2025 3:34 AM EDT [facility] THERAPY FIO2 40 % 01/28/2025 3:34 AM EDT [facility] THERAPY Ventilator Mode VC+/AC 3:34 AM EDT [facility] THERAPY Set Tidal Volume 0.46 01/29/20 3:34 AM EDT [facility] THERAPY Rate 12 Breaths/ minute 01/28/2025 3:34 AM EDT [facility] THERAPY PEEP 7.0 01/28/2025 3:34 AM EDT [facility] THERAPY PIP 0 cmH2O 01/28/2025 3:34 AM EDT [facility] Comment:Meter: [id number] Clerical Administrative Assistant: [id number] IPAP 0 01/28/2025 3:34 AM EDT [facility] THERAPY EPAP 0 01/28/2025 3:34 AM EDT [facility] THERAPY pH, Temp Corrected 7.430 pH Units 2024 3:34 AM EDT [facility] THERAPY pCO2, Temperature Corrected 31.7(L) 35 - 48 mm Hg 01/28/2025 3:34 AM EDT [facility] THERAPY pO2, Temperature Corrected 73.6(L) 83 - 108 mm Hg 01/28/2025 3:34 AM EDT [facility] THERAPY Arterial Blood 01/28/2025 3: 33 AM EDT 01/28/2025 3:34 AM EDT us Heron Abdul MD LAB BLOOD ORDERABLES Final R esult [facility] THERAPY
[address] [place] [address], [place] * CT Chest Without Contrast Diagnostic [...] MD 01/28/2025 11:02 AM EDT Workstation ID: [id number] Narrative 01/28/2025 11:[address] CHEST [...] MD 01/28/2025 11:02 AM EDT Workstation ID: [id number] Julia Connors PA-C IM CT ORDERABLES Final Result * Hemoglobin A1c (01/27/2025 3:12 AM EDT) Hemoglobin A1C 5.51 4.80 - 5.60 % 01/27/2025 4:23 AM EDT [facility] Blood Venipuncture / Unknown 01/27/2025 3:12 AM EDT 01/27/2025 3:32 AM EDT [facility] - 01/27/2025 4:23 AM EDT Hemoglobin A1C Ranges: Increased Risk for Diabetes 5.7% to 6.4% Diabetes >= 6.5% Diabetic Goal < 7.0% Diana Garcia PIERCER OPERATOR LAB BLOOD ORDERABLES Roxanna foreman Result [facility]
[address] [place] [address], * Lipid Panel (01/27/2025 3:12 AM EDT) Total Cholesterol 137 0 - 200 mg/dL 01/27/2025 4:02 AM EDT [facility] Triglycerides 104 0 - 150 mg/dL 01/27/2025 4:02 AM EDT [facility] HDL Cholesterol 49 40 - 60 mg/dL 01/27/2025 4:02 AM EDT [facility] LDL Cholesterol 69 0 - 100 mg/dL 01/27/2025 4:02 AM EDT [facility] VLDL Cholesterol 19 5 - 40 mg/dL 01/27/2025 4:02 AM EDT [facility] LDL/HDL Ratio 1.37 01/27/2025 4:02 AM EDT [facility] Blood Venipuncture / Unknown 01/27/2025 3:12 AM EDT 01/27/2025 3:33 AM EDT [facility] - 01/27/2025 4:02 AM EDT [...] using the NIH LDL-C calculation. Diana Garcia APRN LAB BLOOD ORDERABLES Roxanna foreman Result [facility]
[address] [place] [address], * MRI Brain Without Contrast (01/26/2025 11:17 [...] MD 01/27/2025 1:30 AM EDT Workstation ID: [id number] Narrative 01/27/2025 1:30 AM EDT MRI BRAIN [...] MD 01/27/2025 1:30 AM EDT Workstation ID: [id number] Diana Garcia PIERCER OPERATOR [facility] [place] ORDERABLES Final Result * Cortisol (01/26/2025 8:58 PM EDT) Cortisol 6.77 mcg/dL 01/26/2025 9:34 PM EDT [facility] Blood Venipuncture / Unknown 01/26/2025 8:58 PM EDT 01/26/2025 9:05 PM EDT Narrative [facility] - 01/26/2025 9:34 PM EDT Cortisol Reference Ranges: Cortisol 6AM - 10AM Range: 6.02-18.40 mcg/dl Cortisol 4PM - 8PM Range: 2.68-10.50 mcg/dl Results may be falsely increased if patient taking Biotin. us Heron Abdul MD LAB BLOOD ORDERABLES Final R esult [facility]
[address] [place] [address], * ECHO COMPLETE W/ DOPPLER, COLOR FLOW [...] PROCEDURE/MINOR SURGICAL O LEATHA Final Result * NE CRITICAL CARE ILL/INJURED PATIENT INIT 30-74 MIN (01/26/2025 5:25 PM EDT) Narrative Daniel Ocampo MD - 01/26/2025 5:25 PM EDT Daniel Ocampo MD 01/26/2025 5:33 PM Critical Care Performed by: Daniel Ocampo MD Authorized by: Daniel Ocampo MD Critical care provider statement: Critical care time (minutes): 41 Critical care was necessary to treat or prevent imminent or life-threatening deterioration of the following conditions: LAP CHECKER failure or compromise Critical care was time [...] charts Daniel Ocampo MD PROCEDURE/MINOR SURGICAL O LEATHA Final Result * EEG AWAKE OR DROWSY PORTABLE (01/26/2025 3:42 PM EDT) Impressions NEUROLOGY - 01/26/2025 4:25 PM EDT Diffuse cerebral dysfunction of mild degree, most commonly seen due to toxic/metabolic or hypoxemic cause No evidence for epilepsy is seen This report is transcribed using the [employer] dictation system. Narrative NEUROLOGY - 01/26/2025 4:25 [...] epileptiform activity is present us Diana Garcia PIERCER OPERATOR NEUROLOGY ORDERABLES Roxanna l Result Performing Organization Address [facility] Co de Phone Number NEUROLOGY * High Sensitivity Troponin T 1Hr (01/26/2025 1:53 PM EDT) HS Troponin T 11 <22 ng/L 01/26/2025 2:30 PM EDT [facility] Troponin T Numeric Delta 0 Abnormal if >/=3 ng/L 01/26/2025 2:30 PM EDT [facility] Blood Line / Unknown 01/26/2025 1: 53 PM EDT 01/26/2025 1:59 PM EDT Narrative [facility] - 01/26/2025 2:30 PM EDT [...] BLOOD ORDERABLES Final Result Performing Organization Address City/[facility] Co de Phone Number [facility]
[address] [place] [address], [place] [phone] * (ABNORMAL) Urinalysis, Microscopic Only - Indwelling Urethral Catheter (01/26/2025 1:53 PM EDT) RBC, UA 3-5(A) None Seen, 0-2 /HPF 01/26/2025 2:28 PM EDT [facility] WBC, UA 3-5(A) None Seen, 0-2 /HPF 01/26/2025 2:28 PM EDT [facility] Comment:Urine culture not in dicated. Bacteria, UA None Seen None Seen /HPF 01/26/2025 2:28 PM EDT [facility] Squamous Epithelial Cells, UA 0-2 None Seen, 0-2 /HPF 01/26/2025 2:28 PM EDT [facility] Hyaline Casts, UA 0-2 None Seen /LPF 01/26/2025 2:28 PM EDT [facility] Methodology Automated Microscopy 01/26/2025 2:28 PM EDT [facility] Urine (Indwelling Urethral Catheter) Collection / Unknown 01/26/2025 1:53 PM EDT 01/26/2025 2:15 PM EDT Daniel Ocampo MD URINE ORDERABLES Final Res ult [facility]
[address] [place] [address], [place] [phone] * (ABNORMAL) Urinalysis With Culture If Indicated - Indwelling Urethral Catheter (01/26/2025 1:53 PM EDT) Color, UA Yellow Yellow, Straw 01/26/2025 2:28 PM EDT [facility] Appearance, UA Clear Clear 01/26/2025 2:28 PM EDT [facility] pH, UA 6.0 5.0 - 8.0 01/26/2025 2:28 PM EDT [facility] Specific [place], UA >1.030(H) 1.005 - 1.030 01/26/2025 2:28 PM EDT [facility] Glucose, UA >=1000 mg/dL (3+)(A) Negative 01/26/2025 2:28 PM EDT [facility] Ketones, UA Negative Negative 01/26/2025 2:28 PM EDT [facility] Bilirubin, UA Negative Negative 01/26/2025 2:28 PM EDT [facility] Blood, UA Trace(A) Negative 01/26/2025 2:28 PM EDT [facility] Protein, UA Trace(A) Negative 01/26/2025 2:28 PM EDT [facility] Leuk Esterase, UA Negative Negative 01/26/2025 2:28 PM EDT [facility] Nitrite, UA Negative Negative 01/26/2025 2:28 PM EDT [facility] Urobilinogen, UA 0.2 E.U./dL 0.2 - 1.0 E.U./dL 01/26/2025 2:28 PM EDT [facility] Urine (Indwelling Urethral Catheter) Collection / Unknown 01/26/2025 1:53 PM EDT 01/26/2025 2:15 PM EDT [facility] - 01/26/2025 2:28 PM EDT In absence of clinical symptoms, the presence of pyuria, bacteria, and/or nitrites on the urinalysis result does not correlate with infection. us Daniel Ocampo MD URINE ORDERABLES Final Res ult [facility]
[address] [place] [address], * Urine Drug Screen - Indwelling Urethral Catheter (01/26/2025 1:53 PM EDT) THC, Screen, Urine Negative Negative 2024 2:30 PM EDT [facility] Phencyclidine (PCP), Urine Negative Negative 01/26/2025 2:30 PM EDT [facility] Cocaine Screen, Urine Negative Negative 01/26/2025 2:30 PM EDT [facility] Methamphetamine, Ur Negative Negative 01/26 2:30 PM EDT [facility] Opiate Screen Negative Negative 01/26/2025 2:30 PM EDT [facility] Amphetamine Screen, Urine Negative Negative 01/26/2025 2:30 PM EDT [facility] Benzodiazepine Screen, Urine Negative Negative 01/26/2025 2:30 PM EDT [facility] Tricyclic Antidepressants Screen Negative Negative 01/26/2025 2:30 PM EDT [facility] Methadone Screen, Urine Negative Negative 01/26/2025 2:30 PM EDT [facility] Barbiturates Screen, Urine Negative Negative 01/26/2025 2:30 PM EDT [facility] Oxycodone Screen, Urine Negative Negative 01/26/2025 2:30 PM EDT [facility] Buprenorphine, Screen, Urine Negative Negative 01/26/2025 2:30 PM EDT [facility] Urine (Indwelling Urethral Catheter) Collection / Unknown 01/26/2025 1:53 PM EDT 01/26/2025 2:15 PM EDT [facility] - 01/26/2025 2:30 PM EDT [...] ORDERABLES Final Res ult Performing Organization Address [facility] Co de Phone Number [facility]
[address] [place] [address], * Fentanyl, Urine - Indwelling Urethral Catheter (01/26/2025 1:53 PM EDT) Fentanyl, Urine Negative Negative 01/26/2025 3:27 PM EDT [facility] Urine (Indwelling Urethral Catheter) Collection / Unknown 01/26/2025 1:53 PM EDT 01/26/2025 2:15 PM EDT Narrative [facility] - 01/26/2025 3:27 PM EDT [...] ORDERABLES Final Res ult Performing Organization Address [facility] de Phone Number [facility]
[address] [place] [address], * CT CEREBRAL PERFUSION WITH & WITHOUT [...] MD 01/26/2025 1:57 PM EDT Workstation ID: [id number] Narrative 01/26/2025 1:[address] CEREBRAL [...] MD 01/26/2025 1:57 PM EDT Workstation ID: [id number] Diana Garcia APRN IMG CT ORDERABLES Final [...] MD 01/26/2025 1:57 PM EDT Workstation ID: [id number] Narrative 01/26/2025 1:[address] CEREBRAL [...] MD 01/26/2025 1:57 PM EDT Workstation ID: [id number] Diana Garcia APRN IM CT ORDERABLES Final [...] MD 01/26/2025 1:57 PM EDT Workstation ID: [id number] Narrative 01/26/2025 1:[address] CEREBRAL [...] MD 01/26/2025 1:57 PM EDT Workstation ID: [id number] Diana Garcia PIERCER OPERATOR IMG CT ORDERABLES Final R esult * [...] MD 01/26/2025 2:17 PM EDT Workstation ID: [id number] Narrative 01/26/2025 2:[address] ABDOMEN [...] MD 01/26/2025 2:17 PM EDT Workstation ID: [id number] Daniel Ocampo MD IMG CT ORDERABLES [...] MD 01/26/2025 2:17 PM EDT Workstation ID: [id number] Narrative 01/26/2025 2:[address] ABDOMEN [...] MD 01/26/2025 2:17 PM EDT Workstation ID: [id number] Daniel Ocampo MD IMG CT ORDERABLES Final [...] MD 01/26/2025 1:08 PM EDT Workstation ID: [id number] Narrative 01/26/2025 1:[address] HEAD [...] MD 01/26/2025 1:08 PM EDT Workstation ID: [id number] Daniel Ocampo MD IMG CT ORDERABLES Final Re sult * Telemetry Scan (01/26/2025 12:18 PM EDT) [facility] ECG ORDERABLES Final Result * ECG 12 [...] * Respiratory Panel PCR w/COVID-19(SARS-CoV-2) SAMREEN/PIETRO/NA/PAD/COR/ALEXANDER In-House, CAR TRACER Swab in UTM/VTM, 2 HR TAT - Swab, Nasopharynx (01/26/2025 12:06 PM EDT) Pathologist [facility] ADENOVIRUS, PCR Not Detected Not Detected [facility] 01/26/2025 1:07 PM EDT [facility] Coronavirus 229E Not Detected Not Detected [facility] 01/26/2025 1:07 PM EDT [facility] Coronavirus HKU1 Not Detected Not Detected [facility] 01/26/2025 1:07 PM EDT [facility] Coronavirus NL63 Not Detected Not Detected [facility] 01/26/2025 1:07 PM EDT [facility] Coronavirus OC43 Not Detected Not Detected [facility] 01/26/2025 1:07 PM EDT [facility] COVID19 Not Detected Not Detected - Ref. Range [facility] 01/26/2025 1:07 PM EDT [facility] Human Metapneumovirus Not Detected Not Detected [facility] 01/26/2025 1:07 PM EDT [facility] Human Rhinovirus/Enterov irus Not Detected Not Detected [facility] 01/26/2025 1:07 PM EDT [facility] Influenza A PCR Not Detected Not Detected [facility] 01/26/2025 1:07 PM EDT [facility] Influenza B PCR Not Detected Not Detected [facility] 01/26/2025 1:07 PM EDT [facility] Parainfluenza Virus 1 Not Detected Not Detected [facility] 01/26/2025 1:07 PM EDT [facility] Parainfluenza Virus 2 Not Detected Not Detected [facility] 01/26/2025 1:07 PM EDT [facility] Parainfluenza Virus 3 Not Detected Not Detected [facility] 01/26/2025 1:07 PM EDT [facility] Parainfluenza Virus 4 Not Detected Not Detected [facility] 01/26/2025 1:07 PM EDT [facility] RSV, PCR Not Detected Not Detected [facility] 01/26/2025 1:07 PM EDT [facility] Bordetella pertussis pcr Not Detected Not Detected [facility] 01/26/2025 1:07 PM EDT [facility] Bordetella parapertussis PCR Not Detected Not Detected [facility] 01/26/2025 1:07 PM EDT [facility] Chlamydophila pneumoniae PCR Not Detected Not Detected [facility] 01/26/2025 1:07 PM EDT [facility] Mycoplasma pneumo by PCR Not Detected Not Detected [facility] 01/26/2025 1:07 PM EDT [facility] Swab Nasopharyngeal structure / Unknown Collection / Unknown 01/26/2025 12:06 PM EDT 01/26/2025 12:17 PM EDT [facility] - 01/26/2025 1:07 PM EDT [...] ORD ERABLES Final Result Performing Organization Address City/[facility]/ZIP Co de Phone Number [facility]
[address] [place] [address], * Ammonia (01/26/2025 12:02 PM EDT) Pathologist [facility] Ammonia 22 16 - 60 umol/L 01/26/2025 1:32 PM EDT [facility] Blood Structure of right upper limb / Unknown Venipuncture / Unknown 01/26/2025 12:02 PM EDT 01/26/2025 1:19 PM EDT Daniel Ocampo MD LAB BLOOD ORDERABLES Final Result Performing Organization Address [facility] de Phone Number [facility]
[address] [place] [address], * Blood Culture - Blood, Arm, Left (01/26/2025 12:00 PM EDT) Only the most recent of2 resultswithin the time period is included. [facility] Blood Culture No growth at 5 days 01/31/2025 1:30 PM EDT [facility] Blood Structure of left upper limb / Unknown Venipuncture / Unknown 01/26/2025 12:00 PM EDT 01/26/2025 1:21 PM EDT Narrative [facility] - 01/31/2025 1:30 PM EDT Less than seven (7) mL's of blood was collected. Insufficient quantity may yield false negative results. us Daniel Ocampo MD MICROBIOLOGY - GENERAL ORD ERABLES Final Result Performing Organization Address [facility] Co de Phone Number [facility]
[address] [place] [address], * (ABNORMAL) POC CHEM 8 (01/26/2025 11:48 AM EDT) Glucose 120 70 - 130 mg/dL 01/26/2025 11:55 AM EDT [facility] BUN 14 8 - 26 mg/dL 01/26/2025 11:55 AM EDT [facility] Creatinine 1.00 0.60 - 1.30 mg/dL 01/26/2025 11:55 AM EDT [facility] Sodium 142 138 - 146 mmol/L 01/26/2025 11:55 AM EDT [facility] POC Potassium 4.0 3.5 - 4.9 mmol/L 01/26/2025 11:55 AM EDT [facility] Chloride 103 98 - 109 mmol/L 01/26/2025 11:55 AM EDT [facility] Total CO2 25 24 - 29 mmol/L 01/26/2025 11:55 AM EDT [facility] Hemoglobin 15.6 12.0 - 17.0 g/dL 01/26/2025 11:55 AM EDT [facility] Comment:Serial Number: [id number] 1Operator: [id number] Hematocrit 46 38 - 51 % 01/26/2025 11:55 AM EDT [facility] Ionized Calcium 1.36(H) 1.20 - 1.32 mmol/L 01/26/2025 11:55 AM EDT [facility] eGFR 82.5 >60.0 mL/min/1.7 3 01/26/2025 11:55 AM EDT [facility] Blood 01/26/2025 11:4 8 AM EDT 01/26/2025 11:55 AM EDT Daniel Ocampo MD POINT OF CARE TEST ORDERAB LES Final Result [facility]
[address] [place] [address], * Escudero Top (01/26/2025 11:42 AM EDT) Extra Tube Hold for add-ons. 01/26/2025 12:00 PM EDT [facility] Comment:Auto resulted. Blood Venipuncture / Unknown 01/26/2025 11:42 AM EDT 01/26/2025 11:52 AM EDT Daniel Ocampo MD LAB BLOOD ORDER ONLY Final Result [facility]
[address] [place] [address], [place] [phone] * (ABNORMAL) TSH Rfx On Abnormal To Free T4 (01/26/2025 11:42 AM EDT) TSH 5.390(H) 0.270 - 4.200 uIU/mL 01/26/2025 12:40 PM EDT [facility] Blood Venipuncture / Unknown 01/26/2025 11:42 AM EDT 01/26/2025 11:52 AM EDT Daniel Ocampo MD LAB BLOOD ORDERABLES Final Result Performing Organization Address City/[facility]/ZIP Co de Phone Number [facility]
[address] [place] [address], [place] [phone] * Gold Top - SST (01/26/2025 11:42 AM EDT) Extra Tube Hold for add-ons. 01/26/2025 12:00 PM EDT [facility] Comment:Auto resulted. Blood Venipuncture / Unknown 01/26/2025 11:42 AM EDT 01/26/2025 11:52 AM EDT Daniel Ocampo MD LAB BLOOD ORDER ONLY Final Result Performing Organization Address City/[facility]/ZIP Co de Phone Number [facility]
[address] [place] [address], [place] [phone] * Green Top (Gel) (01/26/2025 11:42 AM EDT) Extra Tube Hold for add-ons. 01/26/2025 12:00 PM EDT [facility] Comment:Auto resulted. Blood Venipuncture / Unknown 01/26/2025 11:42 AM EDT 01/26/2025 11:52 AM EDT Daniel Ocampo MD LAB BLOOD ORDER ONLY Final Result [facility]
[address] [place] [address], * Procalcitonin (01/26/2025 11:42 AM EDT) Procalcitonin 0.07 0.00 - 0.25 ng/mL 01/26/2025 1:32 PM EDT [facility] Blood Venipuncture / Unknown 01/26/2025 11:42 AM EDT 01/26/2025 11:52 AM EDT Narrative [facility] - 01/26/2025 1:32 PM EDT [...] Day 4 values are available. Refer to http://www.fytxwf-uet-tearrtjwio.com Change in PCT <=80% A decrease of [...] BLOOD ORDERABLES Final Result Performing Organization Address City/[facility] Co de Phone Number [facility]
[address] [place] [address], * Lavender Top (01/26/2025 11:42 AM EDT) Extra Tube hold for add-on 01/26/2025 12:00 PM EDT [facility] Comment:Auto resulted Blood Venipuncture / Unknown 01/26/2025 11:42 AM EDT 01/26/2025 11:52 AM EDT Daniel Ocampo MD LAB BLOOD ORDER ONLY Final Result Performing Organization Address [facility] de Phone Number [facility]
[address] [place] [address], * Light Blue Top (01/26/2025 11:42 AM EDT) Extra Tube Hold for add-ons. 01/26/2025 12:00 PM EDT [facility] Comment:Auto resulted Blood Venipuncture / Unknown 01/26/2025 11:42 AM EDT 01/26/2025 11:52 AM EDT Daniel Ocampo MD LAB BLOOD ORDER ONLY Final Result Performing Organization Address [facility] de Phone Number [facility]
[address] [place] [address], * High Sensitivity Troponin T (01/26/2025 11:42 AM EDT) [facility] HS Troponin T 11 <22 ng/L 01/26/2025 12:19 PM EDT [facility] Blood Venipuncture / Unknown 01/26/2025 11:42 AM EDT 01/26/2025 11:52 AM EDT [facility] - 01/26/2025 12:19 PM EDT [...] Ocampo MD LAB BLOOD ORDERABLES Final Result [facility]
[address] [place] [address], * BNP (01/26/2025 11:42 AM EDT) [facility] proBNP 93.0 0.0 - 900.0 pg/mL 01/26/2025 12:40 PM EDT [facility] Blood Venipuncture / Unknown 01/26/2025 11:42 AM EDT 01/26/2025 11:52 AM EDT [facility] - 01/26/2025 12:40 PM EDT [...] BLOOD ORDERABLES Final Result Performing Organization Address City/[facility]/ZIP Co de Phone Number [facility]
[address] [place] [address], * Lactic Acid, Plasma (01/26/2025 11:42 AM EDT) Lactate 1.8 0.5 - 2.0 mmol/L 01/26/2025 12:12 PM EDT [facility] Comment:Falsely depressed re sults may occur on samples drawn from patients receiving N-Acetylcysteine (NAC) or Metamizole. Blood Venipuncture / Unknown 01/26/2025 11:42 AM EDT 01/26/2025 11:52 AM EDT Daniel Ocampo MD LAB BLOOD ORDERABLES Final Result Performing Organization Address [facility] Co de Phone Number [facility]
[address] [place] [address], * Ethanol (01/26/2025 11:42 AM EDT) Ethanol <10 0 - 10 mg/dL 01/26/2025 12:28 PM EDT [facility] Blood Venipuncture / Unknown 01/26/2025 11:42 AM EDT 01/26/2025 11:52 AM EDT Narrative [facility] - 01/26/2025 12:28 PM EDT Not for legal purposes. Daniel Ocampo MD LAB BLOOD ORDERABLES Final Result Performing Organization Address City/[facility] Co de Phone Number [facility]
[address] [place] [address], * Acetaminophen Level (01/26/2025 11:42 AM EDT) Acetaminophen <5.0 0.0 - 30.0 mcg/mL 01/26/2025 12:33 PM EDT [facility] Blood Venipuncture / Unknown 01/26/2025 11:42 AM EDT 01/26/2025 11:52 AM EDT Daniel Ocampo MD LAB BLOOD ORDERABLES Final Result Performing Organization Address City/[facility] Co de Phone Number [facility]
[address] [place] [address], * Salicylate Level (01/26/2025 11:42 AM EDT) Salicylate <0.3 <=30.0 mg/dL 01/26/2025 12:33 PM EDT [facility] Blood Venipuncture / Unknown 01/26/2025 11:42 AM EDT 01/26/2025 11:52 AM EDT Daniel Ocampo MD LAB BLOOD ORDERABLES Final Result Performing Organization Address [facility] de Phone Number [facility]
[address] [place] [address], from Last 3 Months Insurance Advance Directives * CPR (Attempt to Resuscitate) (Latest Code Status on File) Date Activated Date Inactivated Comments 01/26/2025 3:02 PM 02/02/2025 6:02 PM Question Answer Comments Code Status (Patient has no pulse and is not breathing): CPR (Attempt to Resuscitate) Medical Interventions (Patie nt has pulse or is breathing): Full Support Care Teams Pathology Secretary/Transcriptionist Relationship Specialty Start Date End Date Provider, [place] [address] PCP - General 01/26/25
== END 2025-04-26 23:59 | disposition home or self-care (01) ==
LOC: RAD 08:30
PROVIDERS: PCP Nurse Practitioner Family; Visit Provider Nurse Practitioner Family
DX: K74.60 Unspecified cirrhosis of liver (principal)
CPT/HCPCS: 76705